=== PATIENT | female | born 1965 | race Caucasian/White ===

== ENCOUNTER 2020-02-14 08:35 | Outpatient (CLI) | payer MEDICARE, SELFPAY ==
--- NOTE | ~2020-02-14 | MR_ITS ---
EXAMINATION: MR lumbar spine wo con DATE: 02/14/2020 09:36 INDICATION: Dorsalgia, unspecified. TECHNIQUE: Magnetic resonance imaging (MRI) of the lumbar spine was performed without intravenous con trast. Sequences included sagittal T2-weighted FSE, sagittal STIR FSE, sagittal T1-weighted FSE, and axial T2-weighted FSE. COMPARISON: Lumbar spine MRI 01/16/2019 FINDINGS: Bone alignment is normal. Vertebral body heights are normal. There is a hemangioma in S1. I ntervertebral disc heights are normal. The distal spinal cord signal intensity is normal. The conus m edullaris is at L1-L2. The following disc levels are specifically discussed: L1-L2 through L3-L4: The disc does not extend beyond the endplate margin. There is no facet joint ost eoarthritis. There is no neural foraminal stenosis. There is no central canal stenosis. L4-L5: There is a left subarticular and left foraminal zone protrusion with annular fissure. There is no facet joint osteoarthritis. There is mild left neural foraminal stenosis. There is mild central c anal stenosis. L5-S1: There is a broad-based central protrusion with annular fissure. There is mild left facet joint osteoarthritis. There is mild bilateral neural foraminal stenosis. There is mild central canal steno sis. IMPRESSION: 1. Mild lumbar spondylosis, stable from 01/16/2019. Reviewed, dictated and finalized at location A.
== END 2020-02-14 08:36 | disposition home or self-care (01) ==
PROVIDERS: PCP Family Medicine; Visit Provider Family Medicine
DX: M47.816 Spondylosis without myelopathy or radiculopathy, lumbar region (principal)
CPT/HCPCS: 72148

== ENCOUNTER → 2022-06-21 14:16 | Outpatient (CLI) | payer MEDICARE, SELFPAY ==
--- NOTE | ~2022-06-21 | MM_ITS ---
EXAMINATION: MM screening [facility] BI w allie HISTORY: Screening mammogram TECHNIQUE: Craniocaudal and mediolateral oblique 3-D tomosynthesis images were obtained and synthetic 2-D images were generated. CAD analysis was submitted and interpreted. COMPARISON: 03/29/2014, 03/23/2013 BREAST PARENCHYMAL COMPOSITION: There are scattered areas of fibroglandular density. FINDINGS: No suspicious mass, calcification, or architectural distortion are identified in either debra ast to suggest malignancy. There has been no suspicious interval change. IMPRESSION: 1. No mammographic evidence of malignancy. 2. Recommend routine screening mammography in one year. BI-RADS Category 1: Negative Reviewed, dictated and finalized at location A. BUFFER
== END ==
PROVIDERS: PCP Family Medicine; Visit Provider Physician Assistant
DX: Z12.31 Encounter for screening mammogram for malignant neoplasm of breast (principal)
CPT/HCPCS: 77063; 77067

== ENCOUNTER → 2022-06-21 14:32 | Outpatient (CLI) | payer MEDICARE, SELFPAY ==
--- NOTE | ~2022-06-21 | DEXA_ITS ---
Bone Density Report Name: BRIONNA MORALES Age: 56 Sex: Female Ethnicity: White Date of : 1965 Indication: postmenopausal; screening for osteoporosis; parental hip fracture; Referring Provider: APRYL DAVIS Study: Bone densitometry was performed. Exam Date: June 21, 2022 Accession number: [id number] Bone Density: Region BMD T-score Z-score Classification AP Spine (L1-L4) 0.754 -2.7 -1.4 Osteoporosis Femoral Neck (Left) 0.607 -2.2 -1.0 Osteopenia Total Hip (Left) 0.691 -2.1 -1.2 Osteopenia Femoral Neck (Right) 0.584 -2.4 -1.2 Osteopenia Total Hip (Right) 0.617 -2.7 -1.8 Osteoporosis Total Hip Mean 0.654 -2.4 -1.5 Osteopenia World Health Organization criteria for BMD impression classify patients as: Normal (T-score at or above -1.0), Osteopenia (T-score between -1.0 and -2.5), or Osteoporosis (T-score at or below -2.5). 10-year Fracture Risk: FRAX not reported because: Some T-score for Spine Total or Hip Total or Femoral Neck at or below -2.5 Clinical Information Provided by Patient: Parent has had a hip fracture Patient maximum height was 61.1 Menopause Age: 37 No regular weight bearing exercise Drinks caffeinated beverages Onset of menses at age 10 Number of children 3 Impression: The patient has osteoporosis, based on the Total Spine T-score. The patient has risk factors, including: parental hip fracture. Discussion: INCREASED RISK OF FRACTURE. BONE DENSITY IS UNDESIRABLY LOW AT ONE OR MORE SKELETAL SITES, CONSISTENT WITH POSTMENOPAUSAL OSTEOPOROSIS. This patient's lowest T-score meets the World Health Organization's (WHO) criteria for osteoporosis at one or more sites (T-score -2.5 or below). In untreated patients, the risk of osteoporotic fracture increases approximately two-fold for each 1.0 SD decrease in T-score. Low bone density is not the only risk factor for fracture; also consider factors such as patient's age, frailty or poor health, risk of falling, risk of injury, previous osteoporotic fracture, family history of osteoporosis, cigarette smoking, low body weight, etc. Not everyone with low bone mineral density has osteoporosis; osteomalacia and other metabolic bone disorders should also be considered. Patients who have osteoporosis should be evaluated for specific diseases and conditions (secondary causes) that may cause or contribute to bone loss. The [place] Association of Clinical Endocrinologists (AACE) and National Osteoporosis Foundation (NOF) recommend pharmacologic intervention for all postmenopausal women whose T-score is in this range. The patient should follow a healthful lifestyle (good nutrition with adequate calcium and vitamin D, and appropriate weight-bearing exercise). Follow-Up: Consider a repeat BMD and Vertebral Fracture Assessment (VFA) exam in 2 years o
== END ==
PROVIDERS: PCP Family Medicine; Visit Provider Family Medicine
DX: Z78.0 Asymptomatic menopausal state (principal); M81.0 Age-related osteoporosis without current pathological fracture; M85.852 Other specified disorders of bone density and structure, left thigh; M85.851 Other specified disorders of bone density and structure, right thigh
CPT/HCPCS: 77080

== ENCOUNTER 2023-04-04 16:16 | Emergency (ER) | payer MEDICARE, SELFPAY ==
--- NOTE | ~2023-04-04 | XR_ITS ---
EXAMINATION: XR ribs LT 2V w CXR 2V DATE: 04/04/2023 16:58 INDICATION: Chest injury. Left rib pain. TECHNIQUE: Frontal and lateral views of the chest and 2 views on 4 radiographs of the left ribs were obtained. COMPARISON: None. FINDINGS: CHEST TWO VIEWS: There is no pneumonia, pleural effusion, or pneumothorax. The heart size is normal. LEFT RIBS: There is no rib fracture. IMPRESSION: 1. No rib fracture. Reviewed, dictated and finalized at location E. F MINISTER IMPRESSION: 1. No rib fracture.
[2023-04-04 16:33] VITALS: BP 139/84; PULSE 81; RESP 16; TEMP 37.2; O2SAT 100
--- NOTE | 2023-04-04 16:34 | ED.CHESTPAIN ---
HPI - Chest Pain General Chief Complaint: Chest Pain Stated Complaint: Fell on chest / pain intensifies Time Seen by Provider: 04/04/23 16:19 Source: patient and family Mode of arrival: ambulatory Limitations: no limitations History of Present Illness HPI narrative: Marnie is a 57-year-old female patient presenting to the clinic today with complaints of left-sided chest pain. She reports that she fell approximately 1 week ago into a the humidifier and complained of pain to her sternum. She has seen her PCP yesterday and he palpated her sternum and ribs and states that there was nothing broken. She reports that today her chest discomfort has intensified. States is worse with taking a deep breath. It is a very sharp pain in the left anterior chest, pain full to palpation over the left anterior ribs. Related Data Home Medications Medication Instructions Recorded Confirmed oxycodone-acetaminophen 7.5 mg-325 1 tablet PO DAILY 01/07/23 01/07/23 mg tablet Allergies Allergy/AdvReac Type Severity Reaction Status Date / Time No Known Allergies Allergy Unknown Verified 04/03/23 15:35 Review of Systems Review of Systems: Pertinent positives per HPI. Patient denies any fever, chills, rash, headache, visual changes, dizziness, cough, runny nose, sore throat, shortness of breath, chest pain, palpitations, nausea, vomiting, diarrhea, constipation, abdominal pain, or any urinary issues. 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 Obesity (BMI 30-39.9) Surgical History Surgical History H/O arthroscopy (~2018) H/O total knee replacement H/O tubal ligation (~1991) Family History Family History Mother Family history of arthritis Family history of migraine headaches Father Family history of Alzheimer's disease Social History Social History Smoking status: Former smoker (3 years) Smoking end date: 05/27/17 Alcohol intake: current Lack of Transportation: No Lack of Food: Never True Current Housing: I Have Housing Concerned About Future Housing: No Difficulty Paying Gas/Electric Bills: No Difficulty Paying for Meds: No Currently Unemployed: No Education: High School Diploma/GED Difficulty w/ Childcare or Family Care: No Comments At the time of my signature, I reviewed and agree with the nursing past medical, surgical, social, and family history. There is no relevant family history pertinent to the patient complaint. Exam Narrative: General: Well-developed, well nourished, in no apparent distress Head: Normocephalic, atraumatic. Chest: Even rise and fall of the chest wall with respirations, very tender to palpation over the left anterior rib just above the breast, no bruising or swelling noted Cardio: Regular rate and rhythm, s1 and s2 normal, no murmur appreciated. Resp: Clear to auscultation bilaterally, no rhonchi, rales, wheezing or rubs. Extremities: No deformity, no edema, no cyanosis, capillary refill less than 2 seconds, peripheral pulses palpable and strong. Integumentary: [place], warm, and dry, intact without lesion, no rashes. Course Course Emergency Course: Portions of this record may have been created with voice recognition software. Level of Care: Express Care Visit Vital Signs Vital signs: Vital signs reviewed MDM - Chest Pain MDM Narrative Medical decision making narrative: At the time of visit patient is resting on the exam table. Chest x-ray with unilateral ribs, EKG shows normal sinus rhythm with heart rate of 71 beats per minute without ectopy. I susp
--- NOTE | 2023-04-04 16:58 | ECG_ITS ---
Measurements Intervals [place] Rate: 71 P: 26 NC: 161 QRS: 9 QRSD: 104 T: 32 QT: 378 QTc: 413 Interpretive Statements SINUS RHYTHM NORMAL ECG NO PREVIOUS ECG AVAILABLE FOR COMPARISON Electronically Signed On 04-05-2023 6:17:16 RESIDENTIAL INSURANCE INSPECTOR by Natalio Herrera D.O.
== END 2023-04-04 17:24 | disposition home or self-care (01) ==
PROVIDERS: Emergency Provider Nurse Practitioner Family; PCP Family Medicine
DX: R07.89 Other chest pain (principal); Z87.891 Personal history of nicotine dependence; W19.XXXA Unspecified fall, initial encounter
CPT/HCPCS: 71046; 71100; 93005; 99213; G0463

== ENCOUNTER 2023-09-17 14:54 | Outpatient (CLI) | payer MEDICARE, SELFPAY ==
--- NOTE | ~2023-09-17 | MM_ITS ---
EXAMINATION: MM screening [facility] BI w allie HISTORY: Screening mammogram TECHNIQUE: Craniocaudal and mediolateral oblique 3-D tomosynthesis images were obtained and synthetic 2-D images were generated. CAD analysis was submitted and interpreted. COMPARISON: 06/21/2022 bilateral screening mammogram BREAST PARENCHYMAL COMPOSITION: The breasts are almost entirely fatty. FINDINGS: There are 2 biopsy markers on the right seminal history of 2 prior benign right breast biop sies. There is no evidence of suspicious mass, calcification, or architectural distortion to suggest malignancy in either breast. There has been no suspicious interval change. IMPRESSION: 1. No mammographic evidence of malignancy. 2. Recommend routine screening mammography in one year. BI-RADS Category 1: Negative Reviewed, dictated and finalized at location A.
== END 2023-09-17 14:55 ==
LOC: MICIMG 14:55
PROVIDERS: PCP Nurse Practitioner; Visit Provider Nurse Practitioner
DX: Z12.31 Encounter for screening mammogram for malignant neoplasm of breast (principal)
CPT/HCPCS: 77063; 77067

== ENCOUNTER → 2023-11-30 12:10 | Outpatient (CLI) | payer MEDICARE, SELFPAY ==
--- NOTE | ~2023-11-30 | XR_ITS ---
EXAMINATION: XR shoulder RT min 2V DATE: 11/30/2023 12:33 INDICATION: Right shoulder pain. TECHNIQUE: 4 views of right shoulder were obtained. COMPARISON: None. FINDINGS: Bone alignment is normal. No fracture. There is mild osteoarthritis of glenohumeral joint a nd acromioclavicular joint. IMPRESSION: 1. Mild polyarticular osteoarthritis. Reviewed, dictated and finalized at location A.
== END ==
LOC: EXPBETH 12:13
PROVIDERS: PCP Anesthesiology Pain Medicine; Visit Provider Anesthesiology Pain Medicine
DX: M19.011 Primary osteoarthritis, right shoulder (principal)
CPT/HCPCS: 73030

== ENCOUNTER → 2024-05-08 14:16 | Outpatient (CLI) | payer MEDICARE, SELFPAY ==
--- NOTE | ~2024-05-08 | XR_ITS ---
EXAMINATION: XR hand LT min 3V DATE: 05/08/2024 14:26 INDICATION: Left finger pain. Injury. TECHNIQUE: 3 views of left hand were obtained. COMPARISON: None. FINDINGS: There is a transverse fracture of diaphysis of fifth proximal phalanx. The distal fracture fragment demonstrates 31 degrees dorsal angulation and 6 degrees ulnar angulation. There is moderate osteoarthritis of first carpometacarpal joint and mild osteoarthritis of fifth distal interphalangeal joint. IMPRESSION: 1. Transverse fracture of diaphysis of fifth proximal phalanx. Reviewed, dictated and finalized at location A. LYTIC CASE OPERATOR
--- OUTSIDE RECORDS SUMMARY | 2024-05-11 17:29 | XMS_ITS | Encounter Summary ---
Author Organization [facility] Address [address] [place] [address]. [place] [id number] [place] [id number] Care Team Providers Care Package Drier Name Role Phone René Smallwood MD Primary Care Provider [phone]- [phone] Reason for Referral * Consultation/Treatment (Routine) - Closed Specialty Diagnoses / Procedures Referred By Contac t Referred To Contact PAIN MANAGEMENT / [facility] Pain Management Diagnoses Lumbar disc herniation Logan Morales MD Naseer, Kristina, MD [facility] [address] [address] Phone: tel: fax: Referral ID Status Reason Start Date Expiration Date V isits Requested Visits Authorized [id number] Closed Specialty Services 06/08/2019 07/09/2020 1 1 TMAN Reason for Visit * Reason Comments Follow Up * Consultation/Treatment (Routine) - Closed Specialty Diagnoses / Procedures Referred By Contac t Referred To Contact Diagnoses Radiculopathy, lumbar region René Smallwood MD Phone: tel: fax: Logan Morales MD Referral ID Status Reason Start Date Expiration Date Visits Re quested Visits Authorized [id number] Closed 02/25/2019 02/25/2020 12 12 Encounter Details Date Type Department Care Team (Late st Contact Info) Description 06/08/2019 9:40 AM DRIFTMAN Office Visit [facility] Medical Group Multispecialty Care - [facility] [address] [facility], [address] [place] [address] Logan Morales MD Follow Up Social History Tobacco Use Types Packs/Day Years Used Date Smoking Tobacco: Former Smokeless Tobacco: Never Comments No Sex and Gender Information Value Date Recorded Sex Assigned at Not on file Legal Sex Female 4:38 PM CDT Gender Identity Not on file Sexual Orientation Not on file documented as of this encounter Last Filed Vital Signs Vital Sign Reading Time Taken Comments Blood Pressure 130/80 06/08/2019 9:44 AM DRIFTMAN Pulse 82 06/08/2019 9:44 AM DRIFTMAN Temperature - - Respiratory Rate - - Oxygen Saturation - - Inhaled Oxygen Concentration - - Weight 93.7 kg (206 lb 9.6 oz) 06/08/2019 9:44 A M DRIFTMAN Height 154.9 cm (5' 1 ) 06/08/2019 9:44 AM DRIFTMAN Body Mass Index 39.04 06/08/2019 9:44 AM DRIFTMAN documented in this encounter Progress Notes * Vonda Salcido RN - 06/08/2019 9:[address] [facility] Primary Dr Smallwood Left L4-5 Transforaminal block on 05/18/19--Helped about 40%--continues to have some pain relief from injection--helped a lot in the left knee cap, continues to have a constant shooting pain in lateral knee that radiates to hip and to foot when she turns the knee. Continues to have right knee pain and right leg pain Saw Sarah Gibbs on 05/15/19---no new orders from ortho TMAN * Logan Morales MD - 06/08/2019 9:40 AM CST Images from the original note were not included. Neurosurgery Established Patient Follow-up Office Visit Note CHIEF COMPLAINT Chief Complaint Patient presents with ??? Follow Up ROS No past medical history on file. No Known Allergies Current medication(s) at the start of this visit: Medication Sig ??? diazepam 5 MG tablet Take 5 mg by mouth. ??? Levothyroxine Sodium 112 MCG Cap Take 112 mcg by mouth daily. ??? topiramate 50 MG Tab Take 50 mg by mouth 2 (two) times daily. Filed Vitals: 06/08/19 0944 BP: 130/80 Pulse: 82 Weight: 93.7 kg (206 lb 9.6 oz) Height: 5' 1 (1.549 m) LABS No results found for: HGBA1C No results for input(s): WBC, RBC, HGB, HCT, MCV, MCH, MCHC, PLT, RDW, MPV, PERNEU, PERLYM, PERMON,PEREOS, PERBASO, NEUC, LYMC, MONOC, EOSC, BASOC, DTYPE in the last 168 hours. No results for input(s): NA, K, CL, CO2, AGAP, BUN, CR, BUNCREATININ, GFRNON, GFR, GLU, CA, TP, ALB, TBIL, ALKP, AST, ALT in the last 168 hours. No results for input(s): PTT, INR in the last 168 hours. Invalid input(s): PT ENCOUNTER DIAGNOSES SNOMED CT(R) 1. Lumbar disc herniation PROLAPSED LUMBAR INTERVERTEBRAL DISC HPI / NEURO EXAM / IMAGING/DIAGNOSTICS / DISCUSSION/PLAN Attending: Dr. Morales Patient has left greater than right leg pain which seems to have begun coinciding with bilateral total knee replacement. Imaging is very unimpressive. Left L4-5 mild bulge. Tall disc space. Pain begins in her knees and radiates laterally into her legs. Orthopedics unfortunately has no further recomm endations. Left L4-5 transforaminal block provided 40% relief of left knee complaints. Recommended bilateral L4-5 transforaminal block. Follow-up in 8 weeks. LOGAN MORALES MD 06/08/2019 TMAN documented in this encounter Plan of Treatment Scheduled Referrals Name Type Priority Associated Diagnoses Orde r Schedule Ambulatory Referral to Pain Referral Routine Lumbar disc herniation Ordered: 06/08/2019 documented as of this encounter Visit Diagnoses Diagnosis Lumbar disc herniation- Primary Displacement of lumbar intervertebral disc without myelopathy documented in this encounter Care Teams Package Drier Relationship Specialty Start Date End Date René Smallwood MD PCP - General FAMILY PRACTICE 02/23/19 documented as of this encounter
--- OUTSIDE RECORDS SUMMARY | 2024-05-11 17:29 | XMS_ITS | Encounter Summary ---
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 Name Role Phone Unavailable Primary Care Provider Unavailabl e Reason for Referral * Radiology Services (Routine) - Closed Specialty Diagnoses / Procedures Referred By Contac t Referred To Contact Diagnoses Morbid obesity (HCC) Preop testing BMI 39.0-39.9,adult Osteoarthritis, unspecified osteoarthritis type, unspecified site Procedures [place] [id number] [place] [address] [facility] [address] [address] Phone: [phone] Referral ID Status Reason Start Date Expiration Date Visits Re quested Visits Authorized [id number] Closed 02/19/2023 02/19/2024 1 1 * Procedure (Routine) - Closed Specialty Diagnoses / Procedures Referred By Contac t Referred To Contact Gastroenterology Diagnoses Morbid obesity (HCC) Preop testing BMI 39.0-39.9,adult Osteoarthritis, unspecified osteoarthritis type, unspecified site [place] [address] [place] [address] Referral ID Status Reason Start Date Expiration Date Visits Re quested Visits Authorized [id number] Closed 02/19/2023 02/19/2024 1 1 Encounter Details Date Type Department Care Team (Latest Contact Info) Description 02/19/2023 11:00 AM CDT Office Visit [facility] [address], [address] [place] [address] [place] [address] [facility] [address] [place] [id number] Morbid obesity (HCC) (Primary Dx); Preop testing; BMI 39.0-39.9,adult; Osteoarthritis, unspecified osteoarthritis type, unspecified site Social History Tobacco Use Types Packs/Day Years Used Date Smoking Tobacco: Never Smokeless Tobacco: Never Tobacco Cessation:Counseling Given: Not Answered Sex and Gender Information Value Date Recorded Sex Assigned at Female 02/19/2023 10:44 AM CDT Gender Identity Female 02/19/2023 10:44 AM CDT Sexual Orientation Straight 02/19/2023 10 :44 AM CDT documented as of this encounter Last Filed Vital Signs Vital Sign Reading Time Taken Comments Blood Pressure 162/94 02/19/2023 10:56 AM CDT Pulse 71 02/19/2023 10:56 AM CDT Temperature 36.8 ??C (98.2 ??F) 02/19/2023 1 0:56 AM CDT Respiratory Rate 20 02/19/2023 10:5 6 AM CDT Oxygen Saturation 98% 02/19/2023 10: 56 AM CDT Inhaled Oxygen Concentration - - Weight 94.7 kg (208 lb 12.8 oz) 023 10:56 AM CDT Height 154.9 cm (5' 1 ) 02/19/2023 10:5 6 AM CDT Body Mass Index 39.45 02/19/2023 10:56 AM CDT documented in this encounter Progress Notes * Miki Hogue MD - 02/19/2023 11:00 AM CDT BARIATRIC EVALUATION HISTORY & PHYSICAL Height: 154.9 cm (5' 1 ) Weight: 94.7 kg (208 lb 12.8 oz) BMI (Calculated): 39.47 Chief Complaint: Morbid Obesity HPI: Pt is a 57 year old year old female with a hx of morbid obesity who presents for surgical tx. Pt has attempted multiple weight loss regimens in the past including medical, exercise and dietary without snf success. Pt has developed multiple comorbid conditions that include Multiple arthropathies and Osteoarthritis. These comorbid condition(s) have progressively worsened due to the patients morbid obesity and no other contributing factors. Pt has now attained a BMI (Calculated): 39.47 and has failed multiple non surgical weight loss regimens for >5yrs. BMI: Body mass index is 39.45 kg/m??. [place] body weight: 47.8 kg (105 lb 6.1 oz) Adjusted ideal body weight: 66.6 kg (146 lb 12 oz) Medical: no new medical changes Review of previous provider notes in [facility] Everywhere was performed on the day of service. Past Medical History: Diagnosis Date ??? Hypothyroidism ??? Osteoarthritis Past Surgical History: Procedure Laterality Date ??? Knee Replacement Bilateral ??? TUBAL LIGATION, LAPAROSCOPIC ??? Wrist Fracture Repair Left PATIENT MEDICAL HISTORY SCREENING: Morbid Obesity............................................. Yes Diabetes....................................................... No Hypertension................................................ No Hypercholesterolemia.................................. No Gastroesophageal reflux disease................ No Sleep apnea................................................. No COPD/Emphysema ..................................... No Asthma......................................................... No Dyspnea on exertion..................................... No Thyroid problems.......................................... Yes - hypothyroidism Renal Disease.............................................. No Chest pain.................................................... No Heart trouble................................................ No Stress incontinence...................................... No Multiple arthropathies................................... Yes - osteoarthritis in bilateral knees Blood clots................................................... No Depression................................................... No Anesthetic Complications............................. No Positive history of MRSA.............................. No Immune suppression medication.................. No Including, but not limited to prednisone, humira, methotrexate, plaquenil, imuran, alvarado, enbrel Significant Allergies...................................... No Other................................................. none FAMILY HISTORY SCREENING: Significant for obesity....................... Yes - mom's side Blood clots........................................ No Anesthetic Complications................. No Other................................................. none No current outpatient medications on file. No current facility-administered medications for this visit. Allergies Allergen Reactions ??? Naproxen Nausea and/or Vomiting Social History Smoking status: Never Smokeless tobacco: Never Alcohol use: Not on file Drug use: Never Sexual activity: Not on file Family History Problem Relation Name Age of Onset ??? Alzheimer's Disease Father All past medical, family, and social history was reviewed and updated today. Review of Systems: Constitutional: denies recent significant weight loss HEENT: Denies headaches, vision or auditory changes Cardiovascular: Denies chest pain, orthopnea or palpitations Respiratory: Denies cough, hemoptysis. Oxygen dependent : No Gastrointestinal: denies abdominal pain, no melena or hematemesis Genitourinary: denies hematuria, dysuria Musculoskeletal: denies muscle weakness, reports knee pains - s/p multiple knee replacements Endocrine: denies diabetes mellitus, reports thyroid issues Allergic / Immuno: Normal Neuro / Psych: denies depression, denies SI/SA Skin: denies open wounds, skin infections Functional Health Status prior to surgery : Independent- The patient does not require assistance from another person for any ADLs.. Physical Examination: BP 162/94 Pulse 71 Temp 98.2 ??F (36.8 ??C) Resp 20 Ht 1.549 m (5' 1 ) Wt 94.7 kg (208 lb12.8 oz) SpO2 98% Constitutional: well-developed, well-nourished, and in no distress. ENMT: pink, moist oral mucosa Head: Normocephalic and atraumatic. Eyes: EOM are normal. No scleral icterus. Neck: No tracheal deviation present. Pulmonary/Chest: Effort normal. No stridor. No respiratory distress. Abdominal: Soft, nontender, nondistended Musculoskeletal: Normal range of motion. Exhibits no tenderness. Neurological: Alert and oriented. Gross motor nerves intact. Skin: Skin is warm. No erythema. Psychiatric: Mood and affect normal. No results for input(s): SODIUM, POTASSIUM, CHLORIDE, CO2, BUN, CREATININE, GLUCOSE, CALCIUM in thelast 79143 hours. No results for input(s): WBC, HGB, HCT, PLTCOUNT in the last 20634 hours. Risk / Benefits: Risks and benefits were reviewed with patient including but not limited to , blood clots of the extremities or the lungs, enteral leaks, hemorrhage, damage to organs, infections, non guaranteed weight loss results among others. There are also risks of vitamin deficiencies that can generate vitamin deficiency symptoms. There are also risks of additional procedures or operations in the perioperative and snf periods. Questions were answered. Covid Discussion: Because the nature of the virus is not yet completely understood, the risks associated with COVID-19 infections have not been fully identified and there may be additional risks which are not known atthis time. In addition, the impact of COVID-19 infections on the known risks associated with the ulisses atment/procedure/surgery have not been identified and there may be additional or increased risks associated with the treatment/procedure/surgery that are not known at this time. Risks of surgery during COVID19 pandemic was discussed. Discussed that testing would be done prior to operation. Questions were answered. Bariatric Surgery Patient Education: The patient was informed of other factors that are necessary to achieve weight loss in addition to surgery. Specifically, the patient was informed of the different surgical procedures, including the duodenal switch, the jacinto y gastric bypass, the sleeve gastrectomy and the adjustable gastric band. It was explained that bariatric surgery is part of the overall weight loss program which includes a low calorie nutritional program with nutritional and vitamin supplementation, a frequent and consistent exercise program and a social support program or network. The patient will experience successfuland snf weight loss when these components along with bariatric surgery are followed. The patient has had the above discussions with multiple program team members including surgeon, hearing consultant, bariatric nurse and mental health legal collector and the patient will continue to have these discussions through the perioperative program. The [facility] B[facility] Surgical Risk/Benefit Calculator has been used and results have been reviewedwith the patient. Impression: Morbid obesity with above listed comorbidities. Multiple failed diet attempts. Plan: Based on discussion with the patient and consideration of the patients medical history and diagnosis of morbid obesity the patient is an appropriate candidate for bariatric surgery. Recommendation isfor: Laparoscopic Sleeve Gastrectomy and Laparoscopic Gastric Bypass Pre-op Plan: Liquid Protein Diet: Yes for 3 days Management Lecturer: Yes Additional Testing: Yes GI: hx of morbid obesity with increased risk of silent heartburn and hiatal hernia -EGD: Schwoerer -UGI: ordered CV: none Pulmonary: none Renal: None Endocrine: no diabetes, positive hypothyroidism - on levothyroxine -pcp clearance for surgery Heme: no family hx of DVT / PE, no personal hx of DVT/PE, routine VTE risk -Standard post operative anticoagulation Other: OA in bilateral knees, pt has had multiple knee replacements surgeries in past and has limited ability for significant exercise given her arthritis Psych/Social: -Pt has no history of drug use, alcohol use for greater than one year or treatment for alcohol or drug use for greater than one year -Pt has not smoked for at least 6 weeks Preoperative Labs: CBC, CMP, B1, B12 Preoperative weight loss: No - initial 208 lbs Weight check at Class: Yes Comments: Hospitalist Consult: Yes Other Consults: No Schedule: any Standard incision, 2S, no ray, 2 day stay Miki Hogue MD 02/19/2023 documented in this encounter Plan of Treatment Scheduled Orders Name Type Priority Associated Diagnoses Orde r Schedule EGD GI Routine Morbid obesity (HCC) Preop testing BMI 39.0-39.9,adult Osteoarthritis, unspecified osteoarthritis type, unspecified site 1 Occurrences starting 02/19/2023 until 02/19/2024 [facility] Imaging Routine Morbid obesity (HCC) Preop testing BMI 39.0-39.9,adult Osteoarthritis, unspecified osteoarthritis type, unspecified site 1 Occurrences starting 02/19/2023 until 02/20/2024 documented as of this encounter Visit Diagnoses Diagnosis Morbid obesity (HCC)- Primary Morbid obesity Preop testing Preoperative examination, unspecified BMI 39.0-39.9,adult Body Mass Index 39.0-39.9, adult Osteoarthritis, unspecified osteoarthritis type, unspecified site documented in this encounter
--- OUTSIDE RECORDS SUMMARY | 2024-05-11 17:29 | XMS_ITS | Encounter Summary ---
Author Organization [facility] System Address [address] [place] [address]. [place], [place] [address] [place] [id number] Care Team Providers Care Traffic Workforce Representative Name Role Phone René Smallwood MD Primary Care Provider [phone] Reason for Visit * Auth/Cert Specialty Diagnoses / Procedures Referred By Liz falcon Referred To Contact Diagnoses FAILED RIGHT TOTAL KNEE Procedures REVISION RIGHT TOTAL KNEE ARTHROPLASTY POLYETHYLENE EXCHANGE, SYNOVECTOMY, LYSIS OF ADHESIONS Bo Huerta MD [address] [place] [address] Phone: tel: fax: Referral ID Status Reason Start Date Expiration Date Visits Re quested Visits Authorized [id number] 1 1 Encounter Details Date Type Department Care Team (Late st Contact Info) Description 01/22/2022 9:45 AM CDT - 01/22/2022 12:15 PM CDT Surgery [facility] [address] [place] [address] Bo Huerta MD [address] [place], [place] [id number] REVISION RIGHT TOTAL KNEE ARTHROPLASTY POLYETHYLENE EXCHANGE Surgery Details Date/Time Status Location OR Service Patient Class Case Class Case Type Trauma Case? 01/22/2022 9:45 AM Posted [facility] 13 Orthopedics Short Stay/Outpa tient Surgery E - Elective No Panel 1 Procedure LRB Anes Op Region Wound Class Comments REVISION RIGHT TOTAL KNEE AR THROPLASTY POLYETHYLENE EXCHANGE Right Spinal Knee Clean Surgeon Surgeon Role Service Panel Bo Huerta MD Primary Orthopedics 1 Case Notes [facility] - OFFICE TO CONTACT REP CONTACTED BY ALETHA TAPIA documented in this encounter Social History Tobacco Use Types Packs/Day Years Used Date Smoking Tobacco: Former Smokeless Tobacco: Never Comments:quit 11/2017 Alcohol Use Standard Drinks/Week Comments Yes 1.7 (1 standard drink = 0.6 oz p ure alcohol) occasionally Education Answer Date Recorded What is the highest level of school you have completed or the highest degree you have received? 12th grade 08/27/2019 Comments No Sex and Gender Information Value Date Recorded Sex Assigned at Not on file Legal Sex Female 4:38 PM CDT Gender Identity Not on file Sexual Orientation Not on file COVID-19 Exposure Response Date Recorded In the last 10 days, have yo u been in contact with someone who was confirmed or suspected to have Coronavirus/COVID-19? No / Unsure 01/22/2022 6:31 AM CDT documented as of this encounter Last Filed Vital Signs Vital Sign Reading Time Taken Comments Blood Pressure 105/67 01/22/2022 12:00 PM CDT Pulse 66 01/22/2022 12:00 PM CDT Temperature 36.8 ??C (98.2 ??F) 01/22/2022 10:45 AM C DT Respiratory Rate 16 01/22/2022 12:00 PM CDT Oxygen Saturation 96% 01/22/2022 12:00 PM CDT Inhaled Oxygen Concentration - - Weight 74.4 kg (164 lb) 01/12/2022 4:18 PM CDT Height 154.9 cm (5' 1 ) 01/12/2022 4:18 PM CDT Body Mass Index 30.99 01/12/2022 4:18 PM CDT documented in this encounter Functional Status * Question Answer Date of Assessment Author Status Do you have serious difficulty walking or climbing stairs? Yes 01/22/2022 7:43 AM CDT Tico Oilvo RN Active * Question Answer Date of Assessment Author Status Do you have difficulty dressing or bathing? No 01/22/2022 7:43 AM CDT Sangeetha Olivo RN Active Because of a physical, mental, or emotional condition, do you have difficulty doing errands alone such as visiting a doctor's office or shopping? No 01/22/2022 7:43 AM Tico Patel RN Active * RETIRED Are you deaf or do you have serious difficulty hearing Answer Date of Assessment Author Status No 01/22/2022 7:43 AM CDT Activ e * RETIRED Are you blind or do you have serious difficulty seeing, even when wearing glasses? Answer Date of Assessment Author Status No 01/22/2022 7:43 AM CDT Activ e * Do you have serious difficulty walking or climbing stairs? Answer Date of Assessment Author Status Yes 01/22/2022 7:43 AM Wanda Patel RN Active * Do you have difficulty dressing or bathing? Answer Date of Assessment Author Status No 01/22/2022 7:43 AM Wanda Patel RN Active * Because of a physical, mental, or emotional condition, do you have difficulty doing errands alone such as visiting a doctor's office or shopping? Answer Date of Assessment Author Status No 01/22/2022 7:43 AM Wanda Patel RN Active documented as of this encounter Mental Status * Question Answer Entry Date Author Status Because of a physical, mental, or emotional condition, do you have serious difficulty concentrating, remembering, or making decisions? No 01/22/2022 7:43 AM Sangeetha Patel RN Active * Because of a physical, mental, or emotional condition, do you have serious difficulty concentrating, remembering, or making decisions? Answer Entry Date Author Status No 01/22/2022 7:43 AM Wanda Patel RN Active documented in this encounter Discharge Instructions * Discharge Instructions* Arabella Cardoza RN - 01/22/2022 12:16 PM CDT * Attachments The following attachments cannot be sent through Care Everywhere. * General Anesthesia Discharge Instructions (Scottish) * Nerve Blocks (Scottish) * Total Knee Replacement Discharge Instructions (Scottish) * How to Prevent Surgical Site Infections (Scottish) * How to Prevent Blood Clots (Scottish) * Aspirin, ADULT (Scottish) * Dexamethasone (Systemic), ADULT (Scottish) * Sulfamethoxazole and Trimethoprim, ADULT (Scottish) documented in this encounter Medications at Time of Discharge acetaminophen (TYLENOL) 325 MG tablet Take 2 tablets (650 mg total) by mouth every 6 (six) hours as needed for Pain or Fever. 01/22/2022 diazepam 5 MG tablet Take 5 mg by mouth. 12/16/2017 levothyroxine (SYNTHROID) 100 MCG tablet Take 100 mcg by mouth daily. 11/13/2021 topiramate 50 MG Tab Take 50 mg by mouth 2 (two) times daily. 3 04/01/2019 aspirin EC (ECOTRIN) 81 MG tablet Take 1 tablet (81 mg total) by mouth 2 (two) times a day for 30 days. 60 tablet 01/22/2022 02/21/2022 dexamethasone (DECADRON) 4 MG tablet Take 1 tablet (4 mg total) by mouth 2 (two) times daily with meals for 1 day. To start the morning after surgery. 2 tablet 01/22/2022 01/23/2022 oxyCODONE-acetami nophen (PERCOCET) 5-325 MG tablet Take 1 tablet by mouth every 8 (eight) hours as needed. 01/21/2022 02/20/2022 sulfamethoxazole- trimethoprim (BACTRIM DS) 800-160 MG tablet Take 1 tablet by mouth 2 (two) times daily for 10 days. 20 tablet 01/22/2022 02/01/2022 documented as of this encounter Progress Notes * Anny Oliver, PT - 01/22/2022 3:48 PM CDT PT Initial Evaluation Discharge Recommendation: home with assistance; outpatient P/T DME equipment recommendation: Patient owns a 2 wheeled walker Activity Recommendation for vocational director: Up with supervision and walker; WBAT RLE 01/22/22 5400 Therapy Visit Ordering Provider MD Yosef PT Evaluation Completed on 01/22/22 Subjective RN approved therapy session. Patient was sitting at EOB upon entering [facility], boyfriend present. Both agreeable to therapy evaluation. Patient reports she feels able to return home, but does admit to continued veronika-area numbness. Reason for admission Patient was admitted for revision fo R TKA polyethylene exchange secondary to flexion contracture on 01/22/22............PMH: R medial uni TKA with revision, OA, hypothyroidism, LTKA, R TKA, L wrist surgery...........Orders: Eval and Treat............Activity: RLE WBAT Verified Two Patient Identifiers Yes Patient consents to therapy Yes Acute Inpatient PT Time Calculation PT Start Time 1520 PT Stop Time 1548 PT Time Calculation (min) 28 min Precautions Weight Bearing Status RLE;As tolerated General Precautions Fall Risk Skin Integrity R knee incision with prineo dressing Other IV access; nerve block Home Living Home Living Comments Patient lives alone in a one story house with basement laundry, 2 steps to enter with handrail. Bathroom has a walk-in shower or tub/shower combo (no grab bar), standard toilet (no nearby support). Patient owns a w/c, crutches, 2 wh/walker, cane and standard walker. Prior to admit patient was functionally independent and did not use any assistive devices. She is not currentlyworking. No fall history. Her significant other can provide 24/7 assist over the next few days, andher daughter can also assist as needed. Outpatient P/T scheduled for Saturday..........Patient plans to return to her boyfriend's home initially upon discharge. He has a similar home set-up, except he has a vanity for nearby toilet support. Pain Pain Yes Pain Score 7 Location R knee pain Interventions Cryotherapy;Informed RN;Re-direction;Relaxation;Re-positioning Activity Tolerance Endurance Quality Good Limiting Factors to Endurance Acute deconditioning;Pain;Weakness Activity Tolerance Comments Patient limited by post-op pain, decreased strength/ROM of R knee Vision - Basic Assessment Current Vision Wears glasses Vision - Complex Assessment Additional Comments No acute visual changes Cognition Overall Cognitive Status WFL Arousal/Alertness Appropriate responses to stimuli Attention Span Appears intact Memory Appears intact Orientation Level Oriented X4 Following Commands Follows all commands and directions without difficulty Safety Judgment Good awareness of safety precautions Awareness of Errors Good awareness of errors made Deficits Fully aware of deficits Problem Solving Able to problem solve independently Motor Planning Appears intact Perseveration Not present Initiation Appears intact Sensation Light Touch No apparent deficits Additional Comments Mild veronika-area numbness, but intact light touch in LE's RLE Assessment RLE Comment Gross AROM: WFL's, mild deficits in R knee extension (approximately 5-10 degrees), demonstrates flexion to at least 90 degrees.........Gross MMT: demonstrates at least 3/5 with active movement of hip flexion, knee flexion, 3- /5 for knee extension, and 4/5 for ankle DF LLE Assessment LLE Comment Gross AROM: WFL's.........Gross MMT: 4-/5 (chronic weakness due to prior injury as well) Bed Mobility Supine to Sit SBA/supervision Sit to Supine SBA/supervision Other (Comment) Provided education on alternate techniques (owns leg proof load mechanic if needed) TRANSFERS Sit to Stand SBA/supervision (2 wh/walker) Other (Comment) Educated on technique, hand placement, positioning of R knee during transitions. Gait Gait Assistance SBA/supervision Assistive Device 2 Wheeled walker Distance Ambulated (ft) 125 ft Other (Comment) Pt. demonstrated reciprocal step pattern, antalgic gait RLE, noted to have internalrotation of BLE's (more notable LLE), decreased gait speed, but no buckling or loss of balance throughout session Stairs Stair Management Assistance SBA/supervision Stair Management Technique One rail R;One rail L;Step to pattern;Backward;Forward Number of Stairs 4 Other (Comment) Pt. descended steps backwards with R handrail (on L side during descent), step-to pattern, no loss of balance. Pt. ascended steps with L handrail and step-to pattern, no buckling of Rknee, cues for sequencing. Balance Sitting - Static Independent Sitting - Dynamic Independent Standing - Static Modified independence;Support of both upper extremities (2 wh/walker) Standing - Dynamic SBA;Support of both upper extremities (2 wh/walker) Other (Comment) No loss of balance throughout session, utilized walker appropriately Exercises Other (Comment) Pt. given basic written HEP for TKA ex's in sitting/supine with verbal and visual instruction, patient stated understanding but declined performing ex's. Patient/Family Training Other (Comment) Patient was educated on ice/elevation, knee positioning, home safety and mobility, use of 2 wh/walker and fall prevention, therapy plan and discharge recommendations. Assessment Personal Factors/Comorbidities Impacting Care 3-4 personal factors/comorbidities Examination of Body Systems Moderate (3 or more Elements) Objectives of Body Systems Impaired ambulation;Impaired stair negotiation;Decreased LE ROM;Decreased LE strength;Decreased endurance;Decreased high-level ADLs;Decreased sensation;Pain with mobility Clinical Presentation of Patient Evolving and changing characteristics Complexity Level of Evaluation Moderate Prognosis Good PT Assess/Eval Other (Comment) Patient is a pleasant 56 y/o female who presented for R TKA revisionwith polyethylene exchange on 01/22/22 secondary to flexion contracture. Patient demonstrates post-op deficits in strength and ROM of R knee and limited by pain. Patient compensates well, completing all mobility with supervision and a 2 wh/walker, including gait and stair climbing, with no loss of balance. Pt. is noted to have mild gait deviations due to antalgic presentation and internal rotationof B/L feet, decreased activity tolerance, and also reports mild decrease in veronika-area numbness post-procedure. Overall patient appears able to return home, exhibited good functional tasks during session, appropriate use of 2 wh/walker, and stated undestanding of all educaiton. Recommend return home with assist from significant other, and follow-up outpatient P/T. Recommendation PT Recommendation Home with assistance;Outpatient PT PT Equipment Recommended Currently has DME in Place Plan PT Frequency One time visit (Scheduled for D/C today) PT - Next Appointment 01/22/22 If this is the last treatment note,it will serve as the discharge summary Yes End of Session End of Session Safety Call light within reach;Nursing aware of session;Family/friend present with patient;Transfer status education End of Session Comment Returned to bed Education: Primary Learners Name: Marnie Isabeldiornaa Primary Language of learner: Scottish Patient S.O. was educated on precautions exercises transfers ADLs balance bed mobility equipment therapy plan gait safety stair training adaptive skills edema management ROM. Education was completed one to one verbal hands-on written this date. Preference of learning new concepts one to one verbal Barriers to education this date were none. Response to education this date verbalized understanding verbalized recall asks questions demos with verbal cues demos adequately. documented in this encounter Nursing Notes * Arabella Cardoza RN - 01/22/2022 4:30 PM CDT Pt ambulating with walker w/o difficulty or dizziness. Tolerating diet/fluids w/o nausea. Voided inbathroom but still has decreased sensation to groin/buttocks but able to feel pressure sensation togroin/buttocks and more sensation in michelle legs. Pt c/o pain to left knee but states tolerable to go home now. will be home with pt documented in this encounter OR Notes * Op Note - Bo Huerta MD - 01/22/2022 10:28 AM CDT Marnie Roque, 1965, CSN: @[email or web address]@ Bo HUERTA MD 01/22/2022 Surgeon: Bo HUERTA MD Anesthesia: Anesthesiologist: Mark Mistry MD CLOTH PRINTING INSPECTOR: Rachel Hernandez CRNA Implants: Implant Name Type Inv. Item Serial No. Room Designer Lot No. LRB No. Used Action ROTATING PLATFORM INSERT SIZE 5 - 10MM [employer] [id number] 1 Implanted Preoperative diagnosis: Flexion contracture right total knee Operation proposed: Revision of polyethylene right total knee Postoperative diagnosis: As preop Operation performed: As preop ophthalmic medical assistant: Nikolay Mccollum PA-C, Leon Allen Indications for procedure: This 56-year-old lady has a history of multiple surgeries on her knees. Her problems began with a medial unicompartmental arthroplasty that was converted to a total knee and then subsequently to a revision total knee. She has had chronic pain and issues with her knees. Onthe right side she has inability to fully extend the knee on the left she has instability. She has very poor bone quality and she has bilateral stemmed rotating platform implants. Due to her poor bone quality we are very hesitant to suggest component revision. Instead on the right we plan on downsizing the polyethylene and stripped the soft tissues of the back of the knee. Is understood that she will never be completely symptom free or pain-free with her knees. She is on chronic narcotic medication. It is likely she will also have chronic weakness to extension. Risks and alternatives to care have been discussed and the patient wishes to proceed with surgery today. Description of procedure: Under spinal anesthesia with the patient supine a sterile tourniquet was placed about the thigh and the knee was prepped and draped in usual fashion. A formal timeout was called and patient was identified as was the side and site of surgery. Intravenous antibiotics were given. A longitudinal skin incision was made in the midline following the old scar. We dissected down through the subcutaneous tissues and a medial parapatellar arthrotomy was made. Clear yellow fluid was retrieved and sent for and sensitivity. The suprapatellar pouch as well as the medial recess was widely open however there is some minor scarring in the lateral recess was broken down bluntly. She had a 20 degree or so flexion contracture but flexed quite well. We removed the old polyethylene. It was not appreciably worn. The soft tissues posteriorly. We thenstripped that in similar fashion we dissected along the posterior aspect of the proximal tibia. Trial options were done with an 10 mm polyethylene that was 2 mm thinner than the polyethylene we had taken out.. We did more posterior stripping and unable to get the flexion contracture down to 5 to 10degrees. The downsizing of the polyethylene did not affect the varus valgus stability of the knee. The trial was removed and the definitive polyethylene for a 5 femur and a 4 tibial baseplate was inserted. This is a 10 mm constrained rotating platform polyethylene. We irrigated and closed the capsule with the knee in flexion using #1 strata fix and interspersed #2 Maxbraid. The subcutaneous tissues were closed with 2-0 Vicryl and the skin was closed with a running subcutaneous stitch of 3-0 undyed strata fix. A Prineo dressing was applied and the patient was returned tothe recovery room in satisfactory condition. Blood loss was approximately 25 mL. Complications: None Fluid was sent for culture and sensitivity. documented in this encounter Plan of Treatment Not on file documented as of this encounter Procedures Procedure Name Priority Date/Time Associated Diagnosis Comments HC BODY FLUID CULTURE Nurse Collected Priority 01/22/2022 9:56 AM CDT CULTURE, ANAEROBIC Nurse Collected Priority 01/22/2022 9:56 AM CDT CELL COUNT W/ DIFF BODY FLUID Nurse Collected Priority 01/22/2022 9:56 AM CDT ARTHROPLASTY KNEE TOTAL REVISION 01/22/2022 9:02 AM CDT FAILED RIGHT TOTAL KNEE Case Notes [facility] - OFFICE TO CONTACT REP CONTACTED BY [facility] documented in this encounter Results * CULTURE, BODY FLUID W/ GRAM STAIN (01/22/2022 9:56 AM CDT) SPEC DESCRIPTION KNEE,RIGHT: [place] 01/22/2022 12:04 PM CDT [facility] SPECIAL REQUESTS SURGERY 01/22/2022 12:04 PM CDT [facility] GRAM STAIN RESULT NO NEUTROPHILS OR ORGANISMS SEEN 01/22/2022 3:58 PM CDT [facility] CULTURE RESULT NO GROWTH 5 DAYS 01/27/2022 10:41 AM CDT [facility] BODY FLUID STRUCTURE OF RIGHT KNEE REGION / Unknown 01/22/2022 9:56 AM CDT us D Alejo Huerta MD MICROBIOLOGY - GENERAL ORDERAB LES Final Result [facility] [address] [place] [address], [id number] * CULTURE, ANAEROBIC (01/22/2022 9:56 AM CDT) SPEC DESCRIPTION KNEE,RIGHT: FL 01/22/2022 12:03 PM CDT [facility] SPECIAL REQUESTS SURGERY 01/22/2022 12:03 PM CDT [facility] CULTURE RESULT NO ANAEROBES ISOLATED 01/27/2022 10:41 AM CDT [facility] BODY FLUID STRUCTURE OF RIGHT KNEE REGION / Unknown 01/22/2022 9:56 AM CDT us Bo Huerta MD MICROBIOLOGY - GENERAL ORDERAB LES Final Result Performing Organization Address [facility]/ZIP Co de Phone Number [facility] [address] [place] [address], [place] [phone] [id number] * CELL COUNT W/ DIFF BODY FLUID (01/22/2022 9:56 AM CDT) SOURCE (FLUID) KNEE,RIGHT 01/22/2022 1:20 PM CDT [facility] Comment:SYNOVIAL FLUID WBC (FLUID) 0.408 x10'3/uL 01/22/2022 1:20 PM CDT [facility] Comment:REFERENCE RANGE NOT ESTABLISHED RBC (FLUID) 0.031 x10'6/uL 01/22/2022 1:20 PM CDT [facility] Comment:REFERENCE RANGE NOT ESTABLISHED DIFFERENTIAL MANUAL DIFFERENTIAL PERFORMED ON CONCENTRATED CYTOSPIN 01/22/2022 10:20 AM CDT [facility] CELLS COUNTED 100 No COUNTED 01/22/2022 2:09 PM CDT [facility] SEGS (FLUID) 43 % 01/22/2022 2:09 PM CDT [facility] LYMPHS (FLUID) 28 % 01/22/2022 2:09 PM CDT [facility] OTHER MONONUCLEAR CELLS (FLD) 29 % 01/22/2022 2:09 PM CDT [facility] BODY FLUID STRUCTURE OF RIGHT KNEE REGION / Unknown 01/22/2022 9:56 AM CDT us Bo Huerta MD BODY FLUIDS AND STOOLS ORDERAB LES Final Result Performing Organization Address [facility]/ZIP Co de Phone Number [facility] [address] [place] [address], [place] [phone] documented in this encounter Visit Diagnoses Not on filedocumented in this encounter Administered Medications Inactive Administered Medications - up to 3 most recent administrations Medication Order MAR Action Action Date Dose Rate Site acetaminophen (TYLENOL) tablet 1,000 mg 1,000 mg, Oral, call center director, 1 dose, On Sat01/22/22 at 0745, Pre-Op Given 01/22/2022 8:06 AM CDT 1,000 mg BUpivacaine-EPINEPHrine (PF) 0.25% -[id number] injection As needed, Starting on Sat01/22/22 at 1038, Until Sat01/22/22 at 1042, Intra-Op Given 01/22/2022 10:38 AM CDT 20 mLs Incision Site ceFAZolin (ANCEF) 2 g in SW 20 mL IV syringe 2 g, Intravenous, at 240 mL/hr, Once, 1 dose, On Sat01/22/22 at 1600 Given 01/22/2022 3:51 PM CDT 2 g 240 mL/hr Right Arm chlorhexidine (PERIDEX) 0.12 % solution 15 mL 15 mL, Mouth/Throat, Once, 1 dose, On Sat01/22/22 at 0745, Patient to perform oral care first. Swish/gargle in mouth for 30 seconds, and then discard prior to going to surgery. If ventilated use saturated swab to clean oral cavity., Pre-Op Given 01/22/2022 8:06 AM CDT 15 mLs dexamethasone PF (DECADRON) injection 10 mg 10 mg, Intravenous, call center director, 1 dose, On Sat01/22/22 at 0745, Pre-Op Given 01/22/2022 8:06 AM CDT 10 mg lactated ringers infusion at 10 mL/hr, Intravenous, Continuous, Starting on Sat01/22/22 at 0745, Until Sat01/22/22 at 1857 New Bag 01/22/2022 10:20 AM CDT Continued by Anesthesia 01/22/2022 9:17 AM CDT 10 mL/hr New Bag 01/22/2022 8:06 AM CDT 10 mL/hr ondansetron (ZOFRAN) injection 4 mg 4 mg, Intravenous, Once as needed, Nausea, Vomiting, 1 dose, Starting on Sat01/22/22 at 1055, Until Sat01/22/22 at 1100, Administer slowly over 3-4 minutes. If more than one antiemetic is ordered, use in this order: ondansetron, diphenhydramine, metoclopramide, haloperidol, promethazine. If nausea / vomiting still not controlled, move to next ordered medication., PACU Given 01/22/2022 11:00 AM CDT 4 mg oxyCODONE immediate release (ROXICODONE) tablet 5 mg 5 mg, Oral, Once as needed, Other, Mild pain (Scale 1 - 3), 1 dose, Starting on Sat01/22/22 at 1136, Until Sat01/22/22 at 1145, Do not administer if patient is overly sedated, SpO2 LESS than 90%, or Respiratory Rate LESS than 12., PACU Given 01/22/2022 11:45 AM CDT 5 mg traMADol (ULTRAM) tablet 100 mg 100 mg, Oral, call center director, 1 dose, On Sat01/22/22 at 0745, Pre-Op Given 01/22/2022 8:06 AM CDT 100 mg documented in this encounter Active and Recently Administered Medications Times are shown in CDT. Scheduled Medication Order 01/20/2022 01/21/2022 01/22/2022 acetaminophen (TYLENOL) tablet 1,000 mg (COMPLETED) 1,000 mg, Oral, call center director, 1 dose, On Sat01/22/22 at 0745, Pre-Op 0806 (Given - Provid er: Natalie Olivo RN) ceFAZolin (ANCEF) 2 g in SW 20 mL IV syringe (COMPLETED) 2 g, Intravenous, at 240 mL/hr, call center director, 1 dose, On Sat01/22/22 at 0745, Pre-Op 0944 (Given - Provid er: Rachel Hernandez CRNA) ceFAZolin (ANCEF) 2 g in SW 20 mL IV syringe (COMPLETED) 2 g, Intravenous, at 240 mL/hr, Once, 1 dose, On Sat01/22/22 at 1600 1551 (Given - Provid er: Arabella Cardoza RN) chlorhexidine (PERIDEX) 0.12 % solution 15 mL (COMPLETED) 15 mL, Mouth/Throat, Once, 1 dose, On Sat01/22/22 at 0745, Patient to perform oral care first. Swish/gargle in mouth for 30 seconds, and then discard prior to going to surgery. If ventilated use saturated swab to clean oral cavity., Pre-Op 08 (Given - Provid er: Natalie Olivo RN) dexamethasone PF (DECADRON) injection 10 mg (COMPLETED) 10 mg, Intravenous, call center director, 1 dose, On Sat01/22/22 at 0745, Pre-Op 0806 (Given - Provid er: Natalie Olivo RN) traMADol (ULTRAM) tablet 100 mg (COMPLETED) 100 mg, Oral, call center director, 1 dose, On Sat01/22/22 at 0745, Pre-Op 0806 (Given - Provid er: Natalie Olivo RN) Continuous Medication Order 01/20/2022 01/21/2022 01/22/2022 lactated ringers infusion at 10 mL/hr, Intravenous, Continuous, Starting on Sat01/22/22 at 0745, Until Sat01/22/22 at 1857 0806 (New Bag - Prov ider: Natalie Olivo RN)0917 (Continued by Anesthesia - Provider: Rachel Hernandez CRNA)1019 (Paused - Provider: Rachel Hernandez CRNA - Comment: Switch to gravity)1020 (New Bag - Provider: Rachel Hernandez CRNA)1245 (Infusion Stop Time - Provider: Arabella Cardoza RN) PRN Medication Order 01/20/2022 01/21/2022 01/22/2022 acetaminophen (TYLENOL) tablet 325 mg 325 mg, Oral, Every 4 hours PRN, Mild pain (Scale 1 - 3), Starting on Sat01/22/22 at 1211, Until Sat01/22/22 at 1857, Maximum dose of acetaminophen is 4000 mg from all sources in 24 hours., Post-Op BUpivacaine-EPINEPHrine (PF) 0.25% -[id number] injection (CANCELED) As needed, Starting on Sat01/22/22 at 1038, Until Sat01/22/22 at 1042, Intra-Op 1038 (Given - Provid er: Bo Huerta MD) HYDROcodone-acetaminophen (NORCO) 5-325 MG tablet 1 tablet 1 tablet, Oral, Every 4 hours PRN, Moderate pain (Scale 4 - 7), Starting on Sat01/22/22 at 1211, Until Sat01/22/22 at 1857, Maximum dose of acetaminophen is 4000 mg from all sources in 24 hours., Post-Op HYDROmorphone (DILAUDID) injection 0.2 mg 0.2 mg, Intravenous, Every 2 hours PRN, Severe pain (Scale 8 - 10), Starting on Sat01/22/22 at 1211, Until Sat01/22/22 at 1857, Administer slowly over at least 2-3 minutes., Post-Op ondansetron (ZOFRAN) injection 4 mg 4 mg, Intravenous, Every 8 hours PRN, Nausea, Starting on Sat01/22/22 at 1211, Until Sat01/22/22 at 1857, IV push over 2-5 minutes., Post-Op ondansetron (ZOFRAN) injection 4 mg (COMPLETED) 4 mg, Intravenous, Once as needed, Nausea, Vomiting, 1 dose, Starting on Sat01/22/22 at 1055, Until Sat01/22/22 at 1100, Administer slowly over 3-4 minutes. If more than one antiemetic is ordered, use in this order: ondansetron, diphenhydramine, metoclopramide, haloperidol, promethazine. If nausea / vomiting still not controlled, move to next ordered medication., PACU 1100 (Given - Provid er: Sandra Martinez RN) oxyCODONE immediate release (ROXICODONE) tablet 5 mg (COMPLETED) 5 mg, Oral, Once as needed, Other, Mild pain (Scale 1 - 3), 1 dose, Starting on Sat01/22/22 at 1136, Until Sat01/22/22 at 1145, Do not administer if patient is overly sedated, SpO2 LESS than 90%, or Respiratory Rate LESS than 12., PACU 1145 (Given - Provid er: Sandra Martinez RN) documented in this encounter Care Teams Traffic Workforce Representative Relationship Specialty Start Date End Date René Smallwood MD PCP - General FAMILY PRACTICE 02/23/19 documented as of this encounter
--- OUTSIDE RECORDS SUMMARY | 2024-05-11 17:29 | XMS_ITS | Encounter Summary ---
Author Organization [facility] Address [address] [place] [address]. [place], [place] [id number] [place] [id number] Care Team Providers Care Hydrogeologist Name Role Phone René Smallwood MD Primary Care Provider [phone]- [phone] Reason for Visit * Reason Onset Date Comments Advice 06/24/2019 Encounter Details Date Type Department Care Team (Late st Contact Info) Description 06/24/2019 Telephone [facility] [place] [address] [phone] [place] [address] Advice Social History Tobacco Use Types Packs/Day Years Used Date Smoking Tobacco: Former Smokeless Tobacco: Never Comments No Sex and Gender Information Value Date Recorded Sex Assigned at Not on file Legal Sex Female 4:38 PM CDT Gender Identity Not on file Sexual Orientation Not on file documented as of this encounter Progress Notes * Becca Cartagena RN - 06/24/2019 4:28 PM CST Patient called regarding percentage of pain relief. Reported pain relief of 40%. However, patient reported prior to injection only being able to stand 15 minutes and after injection she is able to stand for a good couple of hours . Patient also wanted to discuss next steps after she gets her next injection and what will happen after she sees Dr. Morales. L ARCHITECT documented in this encounter Plan of Treatment Not on file documented as of this encounter Visit Diagnoses Not on filedocumented in this encounter Care Teams Hydrogeologist Relationship Specialty Start Date End Date René Smallwood MD PCP - General FAMILY PRACTICE 02/23/19 documented as of this encounter
--- OUTSIDE RECORDS SUMMARY | 2024-05-11 17:29 | XMS_ITS | Encounter Summary ---
Author Organization [facility] Address [address] [place] [address]. [place], [place] [id number] [place] [id number] Care Team Providers Care Tourist Camp Attendant Name Role Phone René Smallwood MD Primary Care Provider [phone]- [phone] Reason for Visit * Reason Comments Follow Up * Consultation/Treatment (Routine) - Closed Specialty Diagnoses / Procedures Referred By Liz falcon Referred To Contact Diagnoses Radiculopathy, lumbar region René Smallwood MD Phone: tel: fax: Logan Morales MD Referral ID Status Reason Start Date Expiration Date Visits Re quested Visits Authorized [id number] Closed 02/25/2019 02/25/2020 12 12 Encounter Details Date Type Department Care Team (Late st Contact Info) Description 08/03/2019 11:40 AM CDT Office Visit [facility] - [address], [address] [place] [id number] Logan Morales MD Follow Up Social History [...] Sign Reading Time Taken Comments Blood Pressure 118/76 08/03/2019 12:19 PM CDT Pulse 86 08/03/2019 12:19 PM CDT Temperature - - Respiratory Rate - - Oxygen Saturation - - Inhaled Oxygen Concentration - - Weight 93.4 kg (206 lb) 08/03/2019 12:19 PM CDT Height - - Body Mass Index 38.92 07/01/2019 1:02 PM PUBLIC SERVICE ADMINISTRATOR documented in this encounter Progress Notes * Vonda Salcido RN - 08/03/2019 11:40 AM CDT [facility] [place] L4-5 Transforaminal Block on 07/01/19--did not helped at all. Continues to have pain in mihcelle knees. She has an area on the left lateral knee if she touches it, itshoots pain down the leg to the foot and up to the hip. * Logan Morales MD - 08/03/2019 11:40 AM CDT Images from the original note were not [...] mouth 2 (two) times daily. Filed Vitals: 08/03/19 1219 BP: 118/76 Pulse: 86 Weight: 93.4 kg (206 lb) LABS No results found for: HGBA1C No [...] / IMAGING/DIAGNOSTICS / DISCUSSION/PLAN Attending: Dr. Morales Marnie Roque is a 54-year-old lady who has left greater than right leg pain which began immediately after bilateral total knee replacements. She has been evaluated by multiple orthopedic surgeons who feel that her knee replacements are appropriate. I find the timing to those procedures of interest. In terms of her spine left L4-5 mild bulge. Tall disc space. This does not explain her current bilateral distal symptoms that originate in her knees. Initially partially responded to left L4-5 transforaminal block. Most recent bilateral L4- 5 transforaminal blocks with no impact on symptoms. Frommy perspective there are no surgical issues. She is released from my care. I wished her luck. LOGAN MORALES MD 08/03/2019 documented in this encounter Plan of Treatment Not on file documented as of this encounter Visit Diagnoses Diagnosis Lumbar disc herniation- Primary Displacement of lumbar intervertebral disc without myelopathy documented in this encounter Care Teams Tourist Camp Attendant Relationship Specialty Start Date End Date René Smallwood MD PCP - General FAMILY PRACTICE 02/23/19 documented as of this encounter
--- OUTSIDE RECORDS SUMMARY | 2024-05-11 17:29 | XMS_ITS | Encounter Summary ---
Author Organization [facility] Address [address] [place] [address] Care Team Providers Care Asian Art Curator Name Role Phone Unavailable Primary Care Provider Unavailabl e Encounter Details Date Type Department Care Team (Latest Contact Info) Description 02/19/2023 10:15 AM CDT Clinical Support [facility] [address] [place] [id number] Morbid obesity (HCC) Social History Tobacco Use Types Packs/Day Years Used Date Smoking Tobacco: Never Smokeless Tobacco: Never Sex and Gender Information Value Date Recorded Sex Assigned at Female 02/19/2023 10:44 AM CDT Gender Identity Female 02/19/2023 10:44 AM CDT Sexual Orientation Straight 02/19/2023 10 :44 AM CDT documented as of this encounter Last Filed Vital Signs Vital Sign Reading Time Taken Comments Blood Pressure - - Pulse - - Temperature - - Respiratory Rate - - Oxygen Saturation - - Inhaled Oxygen Concentration - - Weight 94.3 kg (208 lb) 02/19/2023 11:30 AM CDT Height 154.9 cm (5' 1 ) 02/19/2023 11:30 AM CDT Body Mass Index 39.3 02/19/2023 11:30 AM CDT documented in this encounter Progress Notes * Wang Gamez, ORIANA/LD - 02/19/2023 9:59 AM CDT Weight Management Medical Nutrition Therapy Session 1 Date: 02/19/2023 Patient: Marnie Roque Date of : 1965 (57 year old) PCP Physician: No primary care provider on file. Referring Physician: Miki Hogue MD Assessment: Pt planning sleeve or RNYGB. Pt reports hx of diet and exercise with limited success. Pt states she would like to try something new. Water intake is lower, around 20-32oz daily. Caff is rare, cabronation is about 3-4 sodas daily, alcohol rare, and denies smoking. Activity is limited d/tknee issues. Diet recall was taken, although pt reports sporadic and variable diet that is rarely the same. Encouraged structure, and discussed the importance of protein. Promoted protein shakes for pt to begin sampling. B - water, diet soda L - leftovers, or out to eat D - self reported a lot of variance - fish, pasta, casserole Past Medical History: Diagnosis Date ??? Hypothyroidism ??? Osteoarthritis Pertinent Nutrition Medications: Reviewed Pertinent Nutrition Labs: Reviewed Clinical Data: Height: 154.9 cm (5' 1 ) Weight: 94.3 kg (208 lb) BMI (Calculated): 39.32 Diagnostic Statement: Obesity related to excess energy intake and decreased physical activity AEB elevated BMI. Interventions: Bariatric Nutrition Guide provided and reviewed, including: previous food records, proper eating habits/behavior modification tips, adequate hydration, no alcohol/carbonation, protein requirements, high protein foods, recommended protein supplements and portion control Materials Provided: Bariatric Nutrition Guide, Food and Activity Guide, Support Group Schedule, High Protein Liquid Supplement Handout, Fitness Center Membership Information and Vitamin Option Handout Behavior and Lifestyle Modifications Discussed: Eat 3 meals daily with 1-2 high protein snacks as needed Choose low fat/low sugar items Eat 75 gm protein per day Eliminate caloric beverages, carbonated beverages and limit caffeine Perform 30 minutes of cardiovascular exercise per day, most days of the week as able and approved by physician Do not graze between meals Incorporate fruits and vegetables Include whole grain foods Take 15-20 minutes to eat meals Reduce stress and emotional eating Portion control Recipe modifications/cooking methods Monitoring: Pt encouraged to call RD with questions and/or concerns. Pt verbalizes understanding of expectation of gradual weight loss or weight maintenance prior to surgery. Evaluation of Overall Compliance Potential: Good Pt has reviewed pre-operative weight management contract, and verbalizes understanding of program expectations: Yes Nutritional Review ?? Cleared, no additional RD visits required ___ ?? Not cleared, additional RD visit(s) required ___ ?? Continue with Medically Managed Diet visits _x__ ?? Bariatric Case Conference review required ___ Session Information Session date: 02/19/2023 Session total minutes: [address]/PRASAD documented in this encounter Plan of Treatment Not on file documented as of this encounter Visit Diagnoses Diagnosis Morbid obesity (HCC)- Primary Morbid obesity documented in this encounter
--- OUTSIDE RECORDS SUMMARY | 2024-05-11 17:29 | XMS_ITS | Encounter Summary ---
Author Organization [facility] Address [address] [facility] [place] [address] Care Team Providers Care Glove Turner Name Role Phone Unavailable Primary Care Provider Unavailabl e Reason for Visit * Reason Onset Date Comments Question 01/23/2023 Encounter Details Date Type Department Care Team (Late st Contact Info) Description 01/23/2023 Telephone [facility] [employer] [facility] [id number] [place] [id number] [place] [id number] [phone] Question Social History Tobacco Use Types Packs/Day Years Used Date Smoking Tobacco: Never Assessed Sex and Gender Information Value Date Recorded Sex Assigned at Female 02/19/2023 10:44 AM CDT Gender Identity Female 02/19/2023 10:44 AM CDT Sexual Orientation Straight 02/19/2023 10 :44 AM CDT documented as of this encounter Miscellaneous Notes * Telephone Encounter - Ivone Tejeda RN - 01/23/2023 3:[address] Smallwood called to confirm that Marnie had bilateral osteoarthritis of her knees which caused her to have both knees replaced. He clarified that he cannot say she currently has arthritis since shehas artificial joints. She does have arthritis of her spine per Dr. Smallwood. documented in this encounter Plan of Treatment Not on file documented as of this encounter Visit Diagnoses Not on filedocumented in this encounter
--- OUTSIDE RECORDS SUMMARY | 2024-05-11 17:29 | XMS_ITS | Encounter Summary ---
Author Organization [facility] Address [address] [place] [address]. 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 Procedures [place] RE-EVAL Anaid Smallwood MD Phone: tel: fax: Soco Gonzales APNP [address] [address] Phone: tel: fax: Referral ID Status Reason Start Date Expiration Date Visits Re quested Visits Authorized [id number] Closed 08/11/2019 08/10/2020 12 12 Encounter Details Date Type Department Care Team (Latest Contact Info) Description 08/27/2019 1:03 PM CDT - 08/27/2019 11:59 PM CDT Hospital Encounter [facility] [place] [address] [id number] Soco Gonzales APNP [address] [place] [id number] Discharge Disposition: Home or Self Care (Routine Discharge) Social History Tobacco Use Types Packs/Day Years Used Date Smoking Tobacco: Former Smokeless Tobacco: Never Alcohol Use Standard Drinks/Week Comments Yes 1.7 [...] Exposure Response Date Recorded In the last month, have you been in contact with someone who was confirmed or suspected to have Coronavirus / COVID-19? No / Unsure 08/27/2019 1:00 PM CDT documented as of this encounter Last Filed Vital Signs Vital Sign Reading Time Taken Comments Blood Pressure 130/86 08/27/2019 1:31 PM CDT Pulse 86 08/27/2019 1:23 PM CDT Temperature 36.7 ??C (98.1 ??F) 08/27/2019 1:23 PM CD T Respiratory Rate 20 08/27/2019 1:23 PM CDT Oxygen Saturation 98% 08/27/2019 1:23 PM CDT Inhaled Oxygen Concentration - - Weight 93 kg (205 lb) 08/27/2019 1:23 PM CDT Height 154.9 cm (5' 1 ) 08/27/2019 1:23 PM CDT Body Mass Index 38.73 08/27/2019 1:23 PM CDT documented in this encounter Medications at Time of Discharge diazepam 5 MG tablet Take 5 mg by mouth. 12/16/2017 topiramate 50 MG Tab Take 50 mg by mouth 2 (two) times daily. 3 04/01/2019 Levothyroxine Sodium 112 MCG Cap Take 112 mcg by mouth daily. 12/30/2017 01/22/2022 documented as of this encounter H&P Notes * RA Ospina - 08/27/2019 2:18 PM CDT Admission Note Referring Provider: Anaid Smallwood MD CC: Intermittent low back pain that radiates down the lateral legs upward toward the left hip, and over the anterior knees, with an electrical shocklike pain down the lateral left winchester at times. Bilateral anterior knee pain. HPI: Marnie Roque is a 4-year-old female patient seen today for follow-up for low back and bilateral knee pain. She has been experiencing bilateral knee pain for the past 5 years, and uses a crutch to assist with ambulation. She also experiences intermittent low back pain that radiates down the lateral legs upward toward the left hip, and over the anterior knees, with an electrical shocklike pain down the lateral left winchester at times. She was last seen in this office on 07/01/2019 as referred by Logan Morales MD. She underwent a bilateral L4-5 lumbar transforaminal epidural steroid injection at that time she did not provide relief. She was also seen treated on 05/18/[address] Chaudhry as re ferred by Logan Morales MD with recommendations for a left L4-5,, L5-S1 lumbar transforaminal epidural steroid injection, which she said provided approximately 50% improvement. She mentions that she has been released from Logan Morales MD care. She said she continues to experience some occasional low back pain that occurs when she bends forward and with certain activities. She does state the predominant pain complaint is the pain to the anterior knees. She rates her pain today as 7 on a 0-to-10 scale and describes the pain as throbbing, sharp, aching. Associated symptoms includes an electric shocklike sensation when she applies pressure to the lower aspect of the lateral left knee, which radiates down the lateral left winchester. She denies urinary or bowel incontinence and denies anesthesia to the saddle region. She said the pain is worsened with cooking, taking stairs, bending,, walking, standing. She says she has difficulty sleeping at night because of the pain. She has tried physical and occupational therapy, which did not provide relief. She is also tried cold and heat therapy.She said has undergone 7 knee surgeries, with revisions. The most recent surgery was completed at [facility] by David Ba MD on 06/19/2018. Prior to Admission medications Medication Sig Start Date End Date Taking? Authorizing Provider diazepam 5 MG tablet Take 5 mg by mouth. 12/16/17 Yes Doc Abstract Levothyroxine Sodium 112 MCG Cap Take 112 mcg by mouth daily. 12/30/17 Yes Doc Abstract topiramate 50 MG Tab Take 50 mg by mouth 2 (two) times daily. 04/01/19 Yes Doc Abstract No Known Allergies Past Medical History: Diagnosis Date ??? Arthritis ??? Disease of thyroid gland hypothyroidism Past Surgical History: Procedure Laterality Date ??? JOINT REPLACEMENT Left total right knee replacement ??? JOINT REPLACEMENT Right total left knee replacement ??? OTHER PROCEDURE left wrist surgery ??? TUBAL LIGATION Social History Socioeconomic History ??? Marital status: Single Spouse name: Not on file ??? Number of children: 3 ??? Years of education: Not on file ??? Highest education level: 12th grade Occupational History ??? Not on file Social Needs ??? Financial resource strain: Not on file ??? Food insecurity: Worry: Not on file Inability: Not on file ??? Transportation needs: Medical: Not on file Non-medical: Not on file Tobacco Use ??? Smoking status: Former Smoker ??? Smokeless tobacco: Never Used Substance and Sexual Activity ??? Alcohol use: Yes Alcohol/week: 1.7 standard drinks Types: 1 Glasses of wine per week Comment: occasionally ??? Drug use: Not on file ??? Sexual activity: Not on file Lifestyle ??? Physical activity: Days per week: Not on file Minutes per session: Not on file ??? Stress: Not on file Relationships ??? Social connections: Talks on phone: Not on file Gets together: Not on file Attends holiness service: Not on file Active member of club or organization: Not on file Attends meetings of clubs or organizations: Not on file Relationship status: Not on file ??? Intimate partner violence: Fear of current or ex partner: Not on file Emotionally abused: Not on file Physically abused: Not on file Forced sexual activity: Not on file Other Topics Concern ??? Service Not Asked ??? Blood Transfusions Not Asked ??? Caffeine Concern Not Asked ??? Occupational Exposure Not Asked ??? Hobby Hazards Not Asked ??? Sleep Concern Not Asked ??? Stress Concern Not Asked ??? Weight Concern Not Asked ??? Special Diet Not Asked ??? Back Care Not Asked ??? Exercise Not Asked ??? Bike Helmet Not Asked ??? Seat Belt Not Asked ??? Self-Exams Not Asked ??? Wheelchair Not Asked ??? Walker Yes Comment: Uses crutch to assist with ambulation ??? Upper extremity braces/slings Not Asked ??? Lower extermity braces/slings Not Asked ??? Self Care Not Asked Social History Narrative Lives with fiance. Review of Systems Constitutional: Negative. HENT: Negative. Eyes: Negative. Respiratory: Negative. Cardiovascular: Negative. Gastrointestinal: Negative. Denies incontinence of bowels Endocrine: Negative. Genitourinary: Negative. Denies urinary incontinence Musculoskeletal: Positive for back pain. Bilateral knee pain, pain down the lateral aspect of her legs, left side greater than right Allergic/Immunologic: Negative. Neurological: Negative. Hematological: Negative. Psychiatric/Behavioral: Negative. Diagnostic work-up: The patient had a left and right knee x-ray on 05/15/2019. The radiologist report was reviewed and is copied below Findings: Bilateral total knee arthroplasties are noted with longstem femoral and tibial componentsbilaterally. No periprosthetic lucencies in either knee. No acute fracture or dislocation on eitherside. No destructive osseous lesions. Hardware appears intact. No significant joint effusion on either side. No unexpected radiopaque foreign bodies. =====IMPRESSION:===== 1. Bilateral total knee arthroplasties with no acute hardware or osseous abnormalities Interpreted By: Jerrell Strickland MD, 05/17/2019 8:29 AM The patient had an MRI of the lumbar spine at [facility] on 01/16/2019. This report was reviewed and is as follows: Findings: Bone alignment is normal. Vertebral body heights and intervertebral disc heights are normal. There is a hemangioma in S1. The distal spinal cord signal intensity is normal. The conus nodularis is at L1-L2. L1-L2: The disc does not extend beyond the endplate margin. There is mild bilateral facet joint osteoarthritis. There is no neural foraminal stenosis. There is no central canal stenosis. L2-L3: The disc does not extend beyond the endplate margin. There is moderate right and mild left facet joint ost eoarthritis. There is no neural Foraminal stenosis. There is no central canal stenosis. L3-L4: The disc does not extend beyond the endplate margin. There is mild bilateral facet joint osteoarthritis. There is no neural foraminal stenosis. There is no central canal stenosis. L4-5: There is left subarticular zone protrusion that abuts the left L5 nerve root and left lateralrecess. There is mild bilateral facet joint osteoarthritis. There is mild left neuroforaminal stenosis. There is mild central canal stenosis. L5-S1: There is a broad-based central protrusion. There is mild left facet joint osteoarthritis. There is mild bilateral neuroforaminal stenosis. There is mild central canal stenosis. Impression: 1. Mild lumbar spondylosis with interval worsening at L4-L5. PHYSICAL EXAM Filed Vitals: 08/27/19 1323 08/27/19 1331 BP: (!) 140/92 130/86 Pulse: 86 Resp: 20 Temp: 98.1 ??F (36.7 ??C) SpO2: 98% Weight: 93 kg (205 lb) Height: 5' 1 (1.549 m) General: alert, appears stated age and cooperative. Body mass index is 38.73 kg/m??. Skin: normal and no rash or abnormalities HEENT: neck supple with midline trachea Lungs: no respiratory distress Heart: regular rate and rhythm Abdomen: soft Neuro: Patient rises from a seated position with difficulty. She uses a crutch to assist with ambulation, gait is slow and unsteady. Heel and toe walk was deferred at this time. The patient is unableto squat due to the knee pain. Assessment of her knees was limited due to the knee pain. No scarring, redness, warmth, lesions noted to the lumbar region. Range of motion of her back is limited with all motion. She experiences pain palpation of the lumbar paraspinous region. She denies pain to palpation of the knees. Postsurgical scars are present to the anterior knees bilaterally, which are wellapproximated with no sign of infection. Motor strength testing of the lower extremities is 5/5 withhip flexion, knee extension, knee flexion. No clonus noted. Patellar reflexes are 1/4 bilaterally. Capillary refill lower extremities is less than 3 seconds bilaterally. ASSESSMENT 1. Lumbar radiculopathy 2 . Chronic knee pain bilaterally. 3. Osteoarthritis bilateral knees PLAN 30 minutes [id number] time spent with the patient today. Results of her lumbar MRI were reviewed with her during the office visit. She has been experiencing bilateral knee pain for the past 5 years, and uses a crutch to assist with ambulation. She also experiences intermittent low back pain that radiates down the lateral legs for toward the left hip, and over the anterior knees, with an electrical shocklike pain down the lateral left winchester at times. We discussed bilateral genicular nerve blocks as an option with consideration for genicular nerve radiofrequency ablation. The procedure was described in detail as were the risks, benefits and alternative of treatments. Risks including, but notlimited to infection, permanent neurological deficit due to nerve injury, bleeding, post procedure pain, infection, anaphylaxis were reviewed with her and she verbalized understanding. Would also consider bilateral L4-5, L5-S1 lumbar transforaminal epidural steroid injections as an option as well. The patient will be scheduled at a later date for the genicular nerve block versus bilateral L4-5, 5S1 lumbar transforaminal epidural steroid injection. RA OSPINA CC: Anaid Smallwood MD Cosigned by Francie Christiansen MD at 08/31/2019 10:22 AM CDT Associated attestation - Francie Christiansen MD - 08/31/2019 10:22 AM CDT I, FRANCIE CHRISTIANSEN MD, performed a History and Physical examination of the patient and discussed the management with the Advanced Practice Provider (NARCISO). I reviewed the NARCISO's note and agree with the findings and plan of care, except as I have documented. documented in this encounter Plan of Treatment Not on file documented as of this encounter Visit Diagnoses Not on filedocumented in this encounter Care Teams Director Biology Relationship Specialty Start Date End Date Anaid Smallwood MD PCP - General FAMILY PRACTICE 02/23/19 documented as of this encounter
--- OUTSIDE RECORDS SUMMARY | 2024-05-11 17:29 | XMS_ITS | Clinical Summary ---
Author Organization [facility] Address [address] [place] [address]. [place], [place] [id number] [place] [address] Care Team Providers Care Documentation Designer Name Role Phone René Smallwood MD Primary Care Provider +1- [phone] Allergies No known active allergies Medications diazepam 5 MG tablet Take 5 mg by mouth. 12/16/2017 Active topiramate 50 MG Tab Take 50 mg by mouth 2 (two) times daily. 3 04/01/2019 Active levothyroxine (SYNTHROID) 100 MCG tablet Take 100 mcg by mouth daily. 11/13/2021 Active acetaminophen (TYLENOL) 325 MG tablet Take 2 tablets (650 mg total) by mouth every 6 (six) hours as needed for Pain or Fever. 01/22/2022 Active Active Problems Problem Noted Date Diagnosed Date Lumbar radiculopathy 09/02/2019 Overview (09/02/2019): Added automatically from request for surgery [id number] Lumbar disc herniation 06/08/2019 Family History Medical History Relation Comments Alzheimers Father No Known Problems Mother Relation Status Comments Father Mother Alive Social History Tobacco Use Types Packs/Day Years [...] on file Sexual Orientation Not on file Last Filed Vital Signs Vital Sign Reading Time Taken Comments Blood Pressure 129/66 01/22/2022 4:00 PM CDT Pulse 67 01/22/2022 4:00 PM CDT Temperature 36.8 ??C (98.2 ??F) 01/22/2022 4:00 PM CD T Respiratory Rate 18 01/22/2022 4:00 PM CDT Oxygen Saturation 97% 01/22/2022 4:00 PM CDT Inhaled Oxygen Concentration - - Weight 74.4 kg (164 lb) 01/12/2022 4:18 PM CDT Height 154.9 cm (5' 1 ) 01/12/2022 4:18 PM CDT Body Mass Index 30.99 01/12/2022 4:18 PM CDT Plan of Treatment Health Maintenance Due Date Last Done Comments Cervical Cancer Screening Pa p Smear (Age 30 to 64) Every 3 Years 1964 Colorectal Cancer Screening Colonoscopy (10 Years) 1964 Annual Physical 1967 Hepatitis C 1982 Cervical Cancer Screening Pa p with HPV Testing (Age 30 to 64) Every 5 Years 1994 Cervical Cancer Screening with HPV 1994 Mammogram Screening 2004 Zoster Vaccines (1 of 2) 2014 COVID-19 Vaccine (2023-2 5 season) 2024 Influenza Adult (#1) 2024 DTaP, Tdap and Td Vaccines ( 2 - Td or Tdap) 05/01/2026 05/01/2016 Meningococcal Vaccine Aged Out No tila melanie eligible based on patient's age to complete this topic Pneumococcal Vaccine: Pediat rics (0 to 5 Years) and At-Risk Patients (6 to 64 Years) Aged Out No longer eligi ble based on patient's age to complete this topic RSV Immunizations Under 20 Months Aged Out No longer eligible based on patient's age to complete this topic Medical Devices Implanted Type Area Cloth Feeder Device Identifier Shelf Expiration Date Model / Serial / Lot Rotating Platform Insert Size 5 - 10mm Implanted:Qty: 1 on 01/22/2022 by Bo Navas MD at [facility] Right: Knee SYNTHES 04/25/2025 [id number] / / [id number] Insurance [employer] Care Teams Documentation Designer Relationship Specialty Start Date End Date René Smallwood MD PCP - General FAMILY PRACTICE 02/23/19
--- OUTSIDE RECORDS SUMMARY | 2024-05-11 17:29 | XMS_ITS | Encounter Summary ---
Author Organization [facility] Address [address] [place] [address] Care Team Providers Care Ledge Man Name Role Phone Unavailable Primary Care Provider Unavailabl e Encounter Details Date Type Department Care Team (Late st Contact Info) Description 02/19/2023 9:00 AM CDT Office Visit [facility] [address] [place] [address], [address] [address] Morbid obesity (HCC) (Primary Dx) Social History Tobacco Use Types Packs/Day Years Used Date Smoking Tobacco: Never Smokeless Tobacco: Never Sex and Gender Information Value Date Recorded Sex Assigned at Female 02/19/2023 10:44 AM CDT Gender Identity Female 02/19/2023 10:44 AM CDT Sexual Orientation Straight 02/19/2023 10 :44 AM CDT documented as of this encounter Progress Notes * Aixa London, [facility] - 02/18/2023 9:45 AM CDT Name: Marnie Zepedanaa Date of : 63 Surgeon: Miki Hogue Date: 02/19/23 Reason for visit: Pre-Surgery Psychological Evaluation Surgical decision and reason for surgery: The pt is seeking weight loss surgery but is unsure whichone would be best for her. The pt has made the decision to have weight loss surgery because due to a lot of knee issues, she is limited in mobility which has led to weight gain and resistance to losing weight. She noted having 9 surgeries on her knees and still needs more. She noted she has attempte d multiple diets without any long time success. The pt reported comorbid conditions of osteoarthritis of the knees and hypothyroidism. Current Weight: 208 lbs BMI: 39.30 Goal Weight: No particular weight Beyond weight related conditions, patients health hx is otherwise unremarkable. No previous hx of non-compliance with medical care. Family/Home/Support Environment: The pt is supported in her decision to have weight loss surgery by her sister. She noted her partner does not want her to have the surgery but she stated he wants the best for her and would not sabotage her success. The pt has three kids ages 40, 33, and 31. The pt lives alone but her partner livesdown the street. The pt knows several people who have had weight loss surgery. No marital, family, parenting, grand-parenting or home environment issues or concerns identified Job Functioning: The pt is not working and is on disability. 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 Patient has no hx of work-adjustment difficulties on any of her jobs. Mental Health Issues: Patient reported some depressive Sx and took medication for a couple of years. She is not currentlytaking any medication and noted any depressive Sx she may have are due to her limitations from her legs/knees. Patient denied auditory or visual hallucinations; and denied losing blocks of time whereshe can not remember who or where she is. Patient has never been hospitalized for psychiatric reasons, and there is no history of prior suicide/homicide ideation or attempt. The patient was informed that the surgery can produce mild symptoms of anxiety and depression. The patient was asked to utilize support resources if necessary or if symptoms persist or increase in severity. Substance Use Issues: Current alcohol use: very limited use, but would choose a beer Current medical/recreational drugs use: none Current tobacco use: none The pt has no problems related to alcohol, drug or prescription mis-use. The patient was informed of addiction transference and that the absorption rate of alcohol will be much higher after surgery. The patient is aware that alcohol is not to be consumed for at least one year after surgery and thatcarbonated beverages are to be eliminated entirely. Weight and Uyqejz-Pcln-Fkmacwq History: Family Hx of Obesity: none Patient Obese since: About ten years ago after all of her knee surgeries (prior to this she was around 145-150 lbs High school weight: Less than 110 lbs Heaviest Weight Since 20: current weight Lowest weight in the past 2-3 years: 166 lbs Previous Weight Loss Efforts: weight watchers, low carb, phentermine, OTC supplements Most Weight Ever lost: 35 lbs Exercise and other sources of physical activity: very limited currently due to knee pain The patient feels that the biggest contributor to her weight issue is limited mobility due to her knees which is also her biggest barrier. When asked how the surgery is going to be different from any previous attempts at weight loss, the pt stated that it will be different because it helps to create more of a lifestyle for her and givesher consequences if not following the lifestyle. Pt noted she loves to cook and bake. The pt noted she doesn't over eat and is able to stop when full. She does like diet quinton roxana but has stopped in the past. She is not hyper focused on food and does not appear to have any food addictions. She is not a snacker. The pt noted she often eats breakfast. She has one to two cups of coffee per day which is her only caffeine she has. Lunch is her first meal of the day and could be a salad or leftovers She is not big on fast food. Dinner is made at home most of the time and could be chicken marsala, casserole, spaghetti and meat balls, steak or fish. She noted she always has a vegetable. Pt drinks water and diet quinton roxana throughout the day. Pt eats out a couple of times per week. Patterns of Distorted Eating: Emotional Eating: denies Mental Status Patient appearance: appropriate Orientation: Time, Place, Person, Situation Behavior: Within normal limits Speech: appropriate Affect: appropriate Mood: euthymic Memory: in tact Mental Awareness: clear Intelligence: average Attitude: cooperative Attention: focused Reasoning: good Judgement: good Impulse Control: good Insight: good Self-perception: realistic Thought Process: Logical Thought Content: Within Normal Limits DSM-5: E66.01 Obesity Summery/Recommendations Time did not allow for completion and pt has yet to decide which surgery she will have, if at all. Psychological Clearance is therefore Postponed. Aixa London, [facility], [facility] Licensed Professional Counselor Board Certified Bariatric Counselor Psychological Review ?? Cleared__ ?? Not cleared, additional visit(s) required __X_ can be video visit ?? Bariatric Case Conference review required ___ ?? Follow up scheduled ____ documented in this encounter Plan of Treatment Not on file documented as of this encounter Visit Diagnoses Diagnosis Morbid obesity (HCC)- Primary Morbid obesity documented in this encounter
--- OUTSIDE RECORDS SUMMARY | 2024-05-11 17:29 | XMS_ITS | Patient Health Summary ---
Author Organization [facility] [employer] Address [address] [place] [address] Care Team Providers Care Carrier Driver Name Role Phone Unavailable Primary Care Provider Unavailabl e Note from [facility],non-owned Affiliates and Associated Physician Practices is amultiple site organization consisting of ambulatory clinics and hospital sitesin [place], [place], [place] and [place]. This disclosure is being madepursuant to the Care Everywhere program and may not contain all information available regarding this patient. Last updated 18.[facility] [employer] Allergies * Naproxen(Nausea and/or Vomiting) -Low Criticality Social History Tobacco Use Types Packs/Day Years Used Date Smoking Tobacco: Never Smokeless Tobacco: Never Tobacco Cessation:Counseling Given: Not Answered Sex and Gender Information Value Date Recorded Sex Assigned at Female 02/19/2023 10:44 AM CDT Gender Identity Female 02/19/2023 10:44 AM CDT Sexual Orientation Straight 02/19/2023 10 :44 AM CDT Last Filed Vital Signs Vital Sign Reading Time Taken Comments Blood Pressure 162/94 02/19/2023 10:56 AM CDT Pulse 71 02/19/2023 10:56 AM CDT Temperature 36.8 ??C (98.2 ??F) 02/19/2023 10:56 AM C DT Respiratory Rate 20 02/19/2023 10:56 AM CDT Oxygen Saturation 98% 02/19/2023 10:56 AM CDT Inhaled Oxygen Concentration - - Weight 94.3 kg (208 lb) 02/19/2023 11:30 AM CDT Height 154.9 cm (5' 1 ) 02/19/2023 11:30 AM CDT Body Mass Index 39.3 02/19/2023 11:30 AM CDT
--- OUTSIDE RECORDS SUMMARY | 2024-05-11 17:29 | XMS_ITS | Encounter Summary ---
Author Organization [facility] Address [address] [place] [address]. [place], [place] [address] [place] [address] Care Team Providers Care Roll Filler Name Role Phone René Smallwood MD Primary Care Provider +1- [phone] Encounter Details Date Type Department Care Team (Latest Contact Info) Description 01/22/2022 Travel Social History Tobacco Use Types Packs/Day Years [...] AM CDT documented as of this encounter Functional Status * Question Answer Date of Assessment Author Status Do you have serious difficulty walking or climbing stairs? Yes 01/22/2022 7:43 AM CDT Tico Olivo RN Active * Question Answer Date of [...] Patel RN Active documented in this encounter Plan of Treatment Not on file documented as of this encounter Visit Diagnoses Not on filedocumented in this encounter Care Teams Roll Filler Relationship Specialty Start Date End Date René Smallwood MD PCP - General FAMILY PRACTICE 02/23/19 documented as of this encounter
--- OUTSIDE RECORDS SUMMARY | 2024-05-11 17:29 | XMS_ITS | Encounter Summary ---
Author Organization [facility] Address [address] [place] [address]. [place], [place] [address] [place] [address] Care Team Providers Care Senior Quality Control Technician Name Role Phone René Smallwood MD Primary Care Provider +1- [phone] Encounter Details Date Type Department Care Team (Late st Contact Info) Description 2019 Telephone [facility] Interventional [place] [address] [id number] Mona Mei RN Social History Tobacco Use Types Packs/Day Years Used Date Smoking Tobacco: Former Smokeless Tobacco: Never Comments No Sex and Gender Information Value Date Recorded Sex Assigned at Not on file Legal Sex Female 4:38 PM CDT Gender Identity Not on file Sexual Orientation Not on file documented as of this encounter Progress Notes * Mona Mei RN - 2019 11:38 AM CST PT CALLED RN DEVAUGHN TO GET NAME OF THE TWO INJECTIONS SHE RECEIVED IN ORDER TO FILL OUT HER DISABILITY FORMS. I CALLED HER BACK WITH THE INFO. E DRUM LATHE OPERATOR documented in this encounter Plan of Treatment Not on file documented as of this encounter Visit Diagnoses Not on filedocumented in this encounter Care Teams Senior Quality Control Technician Relationship Specialty Start Date End Date Reén Smallwood MD PCP - General FAMILY PRACTICE 02/23/19 documented as of this encounter
--- OUTSIDE RECORDS SUMMARY | 2024-05-11 17:29 | XMS_ITS | Clinical Summary ---
Author Organization [facility] [employer] Address [address] [place] [address] Care Team Providers Care Solar Sales Rep Name Role Phone Unavailable Primary Care Provider Unavailabl e Source Comments [facility],non-owned Affiliates and Associated Physician Practices is amultiple site organization consisting of ambulatory clinics and hospital sitesin [place], [place], [place] and [place]. This disclosure is being madepursuant to the Care Everywhere program and may not contain all informatio navailable regarding this patient. Last updated 18.[facility] [employer] Allergies Active Allergy Reactions Criticality Noted Date Comments Naproxen Nausea and/or Vomiting Low 11/03/2012 Family History Medical History Relation Name Comments Alzheimer's Disease Father Relation Name Status Comments Father Mother Alive Social History [...] Mass Index 39.3 02/19/2023 11:30 AM CDT Plan of Treatment Health Maintenance Due Date Last Done Comments COLOGUARD (AGES 45-75) - COL ON CA SCREENING 1964 COLON MONITORING 1964 COLONOSCOPY - COLON CA SCREENING 1964 CT COLONOGRAPHY - COLON CA SCREENING 1964 Colorectal Cancer Screening 1964 FIT - COLON CA SCREENING 1964 FLEX SIG - COLON CA SCREENING 1964 LIPID TESTING 1964 MAMMOGRAM 1964 PAP SMEAR 1964 HIV SCREENING 1979 HEPATITIS C SCREENING 07/10/1982 DTAP/TDAP/TD VACCINES (1 - Tdap) 1983 HEPATITIS B VACCINE (1 of 3 - 19+ 3-dose series) 1983 ZOSTER VACCINE (1 of 2) 2014 SCREENING FOR DIABETES 02/19/2023 DEPRESSION SCREENING 05/27/2023 MEDICARE AWV ? CALENDAR YEAR 2023 COVID-19 VACCINE (1 - 2023-2 5 season) 2024 INFLUENZA VACCINE (#1) 2024 HIB VACCINE Aged Out No longer eligi ble based on patient's age to complete this topic HPV VACCINE Aged Out No longer eligi ble based on patient's age to complete this topic MENINGOCOCCAL VACCINE Aged Out No tila melanie eligible based on patient's age to complete this topic PNEUMOCOCCAL VACCINE Aged Out No long er eligible based on patient's age to complete this topic
--- OUTSIDE RECORDS SUMMARY | 2024-05-11 17:29 | XMS_ITS | Encounter Summary ---
Author Organization [facility] Address [address] [place] [address]. [place], [place] [address] [place] [address] Care Team Providers Care Special Agent Secret Service Name Role Phone René Smallwood MD Primary Care Provider +1- [phone] Reason for Visit * Reason Comments Lab (SCAN) ECG (SCAN) Encounter Details Date Type Department Care Team ([facility] st Contact Info) Description 01/03/2022 Scan [facility] Information [facility] [address] [place] [address] Scanned, Documents Lab (SCAN); ECG (SCAN) Social History Tobacco Use Types Packs/Day Years [...] suspected to have Coronavirus/COVID-19? No / Unsure 01/12/2022 4:26 PM CDT documented as of this encounter Plan of Treatment Not on file documented as of this encounter Procedures Procedure Name Priority Date/Time Associated Diagnosis Comments ECG GENERIC (SCAN ORDER) Routine 01/03/2022 12:00 AM CDT OUTSIDE LAB (SCAN ORDER) Routine 01/03/2022 12:00 AM CDT OUTSIDE LAB (SCAN ORDER) Routine 01/03/2022 12:00 AM CDT documented in this encounter Results * OUTSIDE LAB (SCAN) (01/03/2022 12:00 AM CDT) 01/03/2022 us Documents Scanned SCANNING Final Result Performing Organization Address [facility] Co de Phone Number [facility] * OUTSIDE LAB (SCAN) (01/03/2022 12:00 AM CDT) 01/03/2022 us Documents Scanned SCANNING Final Result Performing Organization Address [facility] Co de Phone Number [facility] * ECG (01/03/2022 12:00 AM CDT) 01/03/2022 us Documents Scanned SCANNING Final Result Performing Organization Address [facility] de Phone Number [facility] documented in this encounter Visit Diagnoses Not on filedocumented in this encounter Care Teams Special Agent Secret Service Relationship Specialty Start Date End Date René Smallwood MD PCP - General FAMILY PRACTICE 02/23/19 documented as of this encounter
--- OUTSIDE RECORDS SUMMARY | 2024-05-11 17:29 | XMS_ITS | Encounter Summary ---
Author Organization [facility] Address [address] [place] [address]. [place], [place] [address] [place] [address] Care Team Providers Care Section Cutter Name Role Phone René Smallwood MD Primary Care Provider +1- [phone] Reason for Visit * Auth/Cert Specialty Diagnoses / Procedures Referred By Liz t Referred To Contact Diagnoses Lumbar radiculopathy lumbar radiculopathy Procedures INJECTION EPIDURAL TRANSFORAMINAL L4-5, L5-S1 Referral ID Status Reason Start Date Expiration Date Visits Re quested Visits Authorized [id number] 1 1 Encounter Details Date Type Department Care Team (Late st Contact Info) Description 09/08/2019 2:40 PM CDT - 09/08/2019 3:00 PM CDT Surgery [facility] Interventional [place] [address] [id number] Francie Christiansen MD [facility] [address] [place] [address] INJECTION EPIDURAL TRANSFORAMINAL L4-5 and L5-S1 Surgery Details Date/Time Status Location OR Service Patient Class Case Class Case Type Trauma Case? 09/08/2019 2:40 PM Posted [facility] Rm Pain Medicine Short Stay/Outpa tient Surgery No Panel 1 Procedure LRB Anes Op Region Wound Class Comments INJECTION EPIDURAL TRANSFORAMINAL L4-5 and L5-S1 Bilateral Local Spine Lumbar Clean RTN PT NO BLOOD THINNERS BILATERAL INJECTION EPIDURAL TRANSFORAMINAL L4-5, L5-S1 09/02/2019 YASMINE GORDON Surgeon Surgeon Role Service Panel Francie Christiansen MD Primary Pain Medicine 1 documented in this encounter Social History Tobacco [...] have Coronavirus / COVID-19? No / Unsure 09/08/2019 1:57 PM CDT documented as of this encounter Last Filed Vital Signs Vital Sign Reading Time Taken Comments Blood Pressure 122/73 09/08/2019 2:57 PM CDT Pulse 79 09/08/2019 2:57 PM CDT Temperature 37.2 ??C (98.9 ??F) 09/08/2019 2:21 PM CD T Respiratory Rate 20 09/08/2019 2:57 PM CDT Oxygen Saturation 96% 09/08/2019 2:57 PM CDT Inhaled Oxygen Concentration - - Weight 96.2 kg (212 lb) 09/08/2019 2:30 PM CDT Height 154.9 cm (5' 1 ) 09/08/2019 2:21 PM CDT Body Mass Index 40.06 09/08/2019 2:21 PM CDT documented in this encounter Discharge Instructions * Discharge Instructions* Mona Mei, RN - 09/08/2019 3:09 PM CDT PLEASE CALL WITH YOUR PERCENTAGE OF RELIEF IN 2 WEEKS. Please call [phone] Ext. [phone] option 4. You may need to leave a message. Please leave the following information... 1. Name, date of , a number we can reach you for questions and the date you were here. 2. The amount of relief you received from your injection in percentage and how long it has lasted or if it is still currently helping you. 3. If you still have pain where is the pain? 4. Are you taking any medications for your pain? 5. Are you doing your physical therapy exercises/stretches or any physical activity? 6. Is there any activity that you are able to do that you were unable to do prior to your injection? Please know that if we do not receive this information your next injection may not get authorized by your insurance company and your treatment could be delayed. FOR YOUR NEXT INJECTION APPOINTMENT. Please do not eat or drink anything for 4 hours prior to your appointment. Please have responsible adult with you and someone to drive you home Please shower prior to procedure to help prevent infection. Please no perfumes or scented lotions on day of your procedure. You May wear deodorant. You may take all your medications as prescribed with sips of water. [facility] Interventional Pain Management Discharge Instructions You have received a prescription for Valium to help with anxiety for your next procedure. Please get this filled at your pharmacy for the day of your procedure.. Please take as directed. YOU MUST HAVE A RESPONSIBLE ADULT WITH YOU FOR THIS APPOINTMENT OR YOU MAY BE CANCELED. Please note that this is a one time prescription for your upcoming procedure. This prescription will not be replaced if lost or stolen. Please note that if you cancel or no show for your procedure there will not be another prescriptionissued for the rescheduled date. Please bring a family member with you if you take medical transportation. WHAT TO DO TODAY: - Limit your activity today, but bedrest is not required - You may resume your normal activity tomorrow as tolerated - Do not drive a vehicle or operate hazardous equipment for the first 24 hours after your procedure. - You may experience numbness, tingling, and weakness in your extremities for several hours after your injection. Please be careful when walking or standing so you do not fall. - You may remove your bandage in the morning and you may shower. WHAT TO EXPECT OVER THE NEXT FEW DAYS TO A WEEK: - Any weakness or tingling typically wears off after several hours but you may have some tingling for several days after some injections - It is normal that once the numbing medicine wears off that you could be sore for several days before you notice relief. Pain should get better day by day. - The steroid will start working after 2-3 days and can take up to 2 weeks for it to fully work. - Everyone has different response to the injection depending on the amount of inflammation and diagnosis. HOW TO CONTROL YOUR PAIN: - Injection site soreness is normal and will subside in a few days. We suggest ice packs to the injection site for 10-20 at a time ever 2-3 hours. After 24 hours you may use heat if preferred or you may alternate heat and ice. - Your pain may be worse for a couple of days; you may use any medications that you were using before your visit. You may also use Tylenol, Motrin or Aleve if not contraindicated by your Primary CarePhysician. If you no longer have any prescribed medicine, please get your refill from the physicianwho fist prescribed it for you. - For patients who had a Radiofrequency Ablation your pain could last for up to 2 weeks. - We are an Interventional pain management. We do not prescribe pain medicine. COMMON SIDE EFFECTS OF STEROIDS: - You may experience warm, flushing sensation with redness in your face, neck and chest. - You may feel anxious, jittery, irritable or have trouble sleeping. - You may have increased hunger or menstrual changes (for women). - If you are a diabetic you may have increased blood sugars. If you do and are unable to control please call your doctor who manages your diabetes. - All side effects are temporary and should subside in approximately a week. WHEN TO CALL THE DOCTOR AND HOW TO REACH US: Call [phone] ext. [phone] for scheduling, insurance questions or speak with a nurse. Our hours are Saturday- 8:00am-4:00pm ??? Call the number above for any bleeding/drainage/redness/swelling at the injection site, severe pain, persistent chills, fever over 101 or greater, or new or different pain or numbness. If you areunable to reach us call 911 or go to the nearest emergency room. ??? If you have shortness of breath, fast heart rate, throat/tongue swelling call 911 or go to the nearest emergency room. ANY NEW BOWEL OR BLADDER INCONTINENCE ISSUES OR NUMBNESS TO PELVIC REGION PLEASE GO TO THE EMERGENCY ROOM IMMEDIATELY! documented in this encounter Medications at Time of Discharge diazepam 5 MG tablet Take 5 mg by mouth. 12/16/2017 topiramate 50 MG Tab Take 50 mg by mouth 2 (two) times daily. 3 04/01/2019 diazePAM 10 MG tablet Take 1 tablet (10 mg total) by mouth once for 1 dose. Take on arrival to pre-registration on day of the next procedure. This medication may cause drowsiness, DO NOT drive a motor vehicle or operate machinery. 1 tablet 09/08/2019 0 Levothyroxine Sodium 112 MCG Cap Take 112 mcg by mouth daily. 12/30/2017 2 documented as of this encounter H&P Notes * Francie Christiansen MD - 09/08/2019 2:05 PM CDT HISTORY AND PHYSICAL INTERVAL NOTE: I have reviewed Marnie Juan Chalodiana History & Physical which was performed within the past 30 days. After examining Marnie Yessica Roque, no change has occurred in the patient's condition since the H&P was completed. Informed Consent Discussion: Risks, benefits, alternatives as well as the consequences of not performing the surgery/procedure were discussed with the patient and/or family/personal manufacturer representative. Questions were answered and the patient/family/personal manufacturer representative verbalized understanding and desires to proceed. Previous Adverse Experience with Sedation, Analgesia, or Anesthesia? Yes (please explain) Risk benefits and alternate treatments were discussed. Signed: FRANCIE CHRISTIANSEN MD 2:05 PM Source Note - RA Ospina - 08/27/2019 2:18 PM CDT Admission Note Referring Provider: René Smallwood MD CC: Intermittent low back pain that radiates down the lateral legs upward toward the left hip, and over the anterior knees, with an electrical shocklike pain down the lateral left [place] at times. Bilateral anterior knee pain. HPI: Marnie Nichole Duanenaa is a 4-year-old female patient seen today [...] The most recent surgery was completed at [facility] by David Ba MD on 06/19/2018. Prior [...] file Gets together: Not on file Attends yazidi service: Not on file Active member of [...] an MRI of the lumbar spine at [facility] on 01/16/2019. This report was reviewed [...] 3. Osteoarthritis bilateral knees PLAN 30 minutes [id number] time spent with the patient today. Results [...] transforaminal epidural steroid injection. RA OSPINA CC: René Smallwood MD Cosigned by Francie Christiansen MD at 08/31/2019 10:22 AM CDT documented in this encounter OR Notes * Op Note - Francie Christiansen MD - 09/08/2019 3:01 PM CDT PROCEDURE: LUMBAR TRANSFORAMINAL EPIDURAL STEROID INJECTION UNDER FLUOROSCOPY LEVELS: Bilateral L4-5 and L5-S1 PREOPERATIVE DIAGNOSIS: LUMBAR RADICULOPATHY POSTOPERATIVE DIAGNOSIS: SAME PREOP SURGEON: FRANCIE CHRISTIANSEN MD RISKS, BENEFITS, ALTERNATE TREATMENTS DISCUSSED. WRITTEN CONSENT OBTAINED. PATIENT TAKEN TO PROCEDURE ROOM PLACED IN PRONE POSITION. PILLOW UNDER ABDOMEN TO REDUCE LUMBAR LORDOSIS. STERILE PREP AND DRAPE OF LUMBOSACRAL SPINE PERFORMED. ASA STANDARD MONITORS APPLIED. Risks including, but not limited to infection, permanent neurological deficit due to nerve root injury, bleeding, anaphylaxis, flushing, cerebral spinal fluid leak, paralysis, spinal cord injury, thinning of the skin, thinning of the bones, muscle cramping. PROCEDURE: VERTEBRAL BODIES WERE SQUARED.. SKIN AND SUBCUTANEOUS TISSUES ANESTHETIZED WITH 1% LIDOCAINE. 22 GAUGE CHIBA NEEDLES WITH BENT TIPS WERE USED. C ARM WAS MOVED TO THE OBLIQUE X RAY VIEW. TARGET FOR L 4 5 AND L5-S1 NERVE ROOT IS THE 6 O???CLOCK POSITION OF THE PEDICLE SHADOW IN THE OBLIQUE X RAY VIEW AT THE LEVEL OF L 4 5 AND L5-S1 ON THE Left and Right SIDE. APPROPRIATE NEEDLE TIP POSITION WAS CONFIRMED IN THE AP,OBLIQUE AND LATERAL VIEWS. AFTER NEGATIVE ASPIRATION, 5 CC OF CONTRAST SPLIT BETWEEN THE ABOVE MENTIONED LEVELS WAS INJECTED IN THE LATERAL VIEW CONFIRMING SPREAD IN THE ANTERIOR EPIDURAL SPACE. NEGATIVE ASPIRATION PRIOR TO 5 CC OF CONTRAST INJECTED IN THE AP VIEW CONFIRMING SPREAD ALONG THE APPROPRIATE NERVE ROOTS ALONG WITH EDIDURAL SPREAD. NO INTRAVASCULAR OR INTRATHECAL UPTAKE NOTED. NEGATIVE ASPIRATION PRIOR TO INJECTION OF 4OMG DEPOMEDROL AND 2 CC OF 0.25% BUPIVACAINE INJECTED PER LEVEL. NEEDLES REMOVED. NO COMPLICATIONS. POST PROCEDURE: PATIENT TOLERATED PROCEDURE WELL AND OBSERVED PRIOR TO DISCHARGE. DISCHARGED IN STABLE CONDITION WITH APPROPRIATE POST-PROCEDURE INSTRUCTIONS. PATIENT WILL BE CALLED OVER THE NEXT FEW DAYS FOR FOLLOWUP. documented in this encounter Plan of Treatment Not on file documented as of this encounter Procedures Procedure Name Priority Date/Time Associated Diagnosis Comments INJECTION EPIDURAL TRANSFORAMINAL 09/08/2019 2:46 PM CDT Lumbar radiculopathy XR PAIN CLINIC C-ARM Today 09/08/2019 2:23 PM CDT documented in this encounter Results * XR PAIN CLINIC C-ARM (09/08/2019 2:23 PM CDT) Narrative Radiology, Technologist - 09/08/2019 2:23 PM CDT This report does not contain a radiologist's interpretation. Please review associated procedure and/or operative report. us Francie Christiansen MD GENERAL IMAGING Final Result documented in this encounter Visit Diagnoses Diagnosis Lumbar radiculopathy- Primary Thoracic or lumbosacral neuritis or radiculitis, unspecified Lumbar radiculopathy Thoracic or lumbosacral neuritis or radiculitis, unspecified documented in this encounter Admitting Diagnoses Diagnosis Lumbar radiculopathy Thoracic or lumbosacral neuritis or radiculitis, unspecified documented in this encounter Administered Medications Inactive Administered Medications - up to 3 most recent administrations Medication Order MAR Action Action Date Dose Rate Site BUpivacaine (MARCAINE) 0.25 % injection As needed, Starting on 09/08/19 at 1444, Until 09/08/19 at 1459, Intra-Op Given 09/08/2019 2:57 PM CDT 4 mLs Javier k lidocaine (PF) (XYLOCAINE) 1 % injection As needed, Starting on 09/08/19 at 1444, Until 09/08/19 at 1709, Intra-Op Given 09/08/2019 2:50 PM CDT 2 mLs Javier k methylPREDNISolone acetate (DEPO-Medrol) injection As needed, Starting on e 09/08/19 at 1444, Until Tu09/08/19 at 1459, Intra-Op Given 09/08/2019 2:57 PM CDT 160 mg Javier k documented in this encounter Active and Recently Administered Medications Times are shown in CDT. PRN Medication Order 09/06/2019 09/07/2019 09/08/2019 BUpivacaine (MARCAINE) 0.25 % injection (CANCELED) As needed, Starting on 09/08/19 at 1444, Until 09/08/19 at 1459, Intra-Op 1457 (Given - Provid er: Francie Christiansen MD) lidocaine (PF) (XYLOCAINE) 1 % injection As needed, Starting on 09/08/19 at 1444, Until 09/08/19 at 1709, Intra-Op 1450 (Given - Provid er: Francie Christiansen MD) methylPREDNISolone acetate (DEPO-Medrol) injection (CANCELED) As needed, Starting on 09/08/19 at 1444, Until 09/08/19 at 1459, Intra-Op 1444 (Canceled Entry - Provider: Francie Christiansen MD)1457 (Given - Provider: Francie Christiansen MD) documented in this encounter Care Teams Section Cutter Relationship Specialty Start Date End Date René Smallwood MD PCP - General FAMILY PRACTICE 02/23/19 documented as of this encounter
--- OUTSIDE RECORDS SUMMARY | 2024-05-11 17:29 | XMS_ITS | Encounter Summary ---
Author Organization [facility] Address [address] [place] [address]. [place], [place] [address] [place] [address] Care Team Providers Care Nutrition Director Name Role Phone René Smallwood MD Primary Care Provider +1- [phone] Encounter Details Date Type Department Care Team (Latest Contact Info) Description 08/27/2019 Travel Social History Tobacco Use Types Packs/Day [...] on filedocumented in this encounter Care Teams Nutrition Director Relationship Specialty Start Date End Date René Smallwood MD PCP - General FAMILY PRACTICE 02/23/19 documented as of this encounter
--- OUTSIDE RECORDS SUMMARY | 2024-05-11 17:29 | XMS_ITS | Encounter Summary ---
Author Organization [facility] Address [address] [place] [address]. [place], [place] [id number] [place] [place] [address] Care Team Providers Care Manager Of Human Resources Name Role Phone René Smallwood MD Primary Care Provider [phone]- [phone] Reason for Referral * Surgical (Routine) - Closed Specialty Diagnoses / Procedures Referred By Liz falcon Referred To Contact Procedures Case request operating room: INJECTION EPIDURAL TRANSFORAMINAL l45 and l5s1 Karina Christiansen MD [facility] [address] [place] [address] Phone: tel: fax: Referral ID Status Reason Start Date Expiration Date Visits Re quested Visits Authorized [id number] Closed 09/08/2019 10/07/2020 1 1 Reason for Visit * Auth/Cert Specialty Diagnoses / Procedures Referred By Liz falcon Referred To Contact Diagnoses Lumbar radiculopathy lumbar radiculopathy Procedures INJECTION EPIDURAL TRANSFORAMINAL L4-5, L5-S1 Referral ID Status Reason Start Date Expiration Date Visits Re quested Visits Authorized [id number] 1 1 Encounter Details Date Type Department Care Team (Latest Contact Info) Description 09/08/2019 1:57 PM CDT - 09/08/2019 3:09 PM CDT Hospital Encounter [facility] Interventional [facility] [place] [id number] Karina Christiansen MD [facility] [address] [place] [address] Discharge Disposition: Home or Self Care (Routine [...] encounter Discharge Instructions * Discharge Instructions* Mona Mei RN - 09/08/2019 3:09 PM CDT PLEASE CALL WITH YOUR PERCENTAGE OF RELIEF IN 2 WEEKS. Please call [phone] Ext. [phone] option 4. You may need to leave [...] medications as prescribed with sips of water. [place] Interventional Pain Management Discharge Instructions You [...] DOCTOR AND HOW TO REACH US: Call [phone] ext. [phone] for scheduling, insurance questions or speak with [...] as of this encounter H&P Notes * Karina Christiansen MD - 09/08/2019 2:05 PM CDT HISTORY AND PHYSICAL INTERVAL NOTE: I have reviewed Marnie Roque History & Physical which was performed within the past 30 days. After examining Marnie Juan Mya, no change has occurred in the patient's condition since the H&P was completed. Informed Consent Discussion: Risks, benefits, alternatives as well as the consequences of not performing the surgery/procedure were discussed with the patient and/or family/personal account retention representative. Questions were answered and the patient/family/personal account retention representative verbalized understanding and desires to proceed. Previous Adverse Experience with Sedation, Analgesia, or Anesthesia? Yes (please explain) Risk benefits and alternate treatments were discussed. Signed: KARINA CHRISTIANSEN MD 2:05 PM Source Note - [...] The most recent surgery was completed at [facility] by David Ba MD on 06/19/2018. Prior [...] file Gets together: Not on file Attends sabianism service: Not on file Active member of [...] an MRI of the lumbar spine at [facility] on 01/16/2019. This report was reviewed [...] 3. Osteoarthritis bilateral knees PLAN 30 minutes [id number] time spent with the patient today. Results [...] OSPINA CC: René Smallwood MD Cosigned by Karina Christiansen MD at 08/31/2019 10:22 AM CDT documented in this encounter OR Notes * Op Note - Karina Christiansen MD - 09/08/2019 3:01 PM CDT PROCEDURE: LUMBAR TRANSFORAMINAL EPIDURAL STEROID INJECTION UNDER FLUOROSCOPY LEVELS: Bilateral L4-5 and L5-S1 PREOPERATIVE DIAGNOSIS: LUMBAR RADICULOPATHY POSTOPERATIVE DIAGNOSIS: SAME PREOP SURGEON: KARINA CHRISTIANSEN MD RISKS, BENEFITS, ALTERNATE TREATMENTS DISCUSSED. [...] review associated procedure and/or operative report. us Karina Christiansen MD GENERAL IMAGING Final Result documented [...] MAR Action Action Date Dose Rate Site lidocaine (PF) (XYLOCAINE) 1 % injection As needed, Starting on 09/08/19 at 1444, Until 09/08/19 at 1709, Intra-Op Given 09/08/2019 2:50 PM CDT 2 mLs Back documented in this encounter Active and Recently Administered Medications Times are shown in CDT. PRN Medication Order 09/06/2019 09/07/2019 09/08/2019 BUpivacaine (MARCAINE) 0.25 % injection (CANCELED) As needed, Starting on 09/08/19 at 1444, Until 09/08/19 at 1459, Intra-Op 1457 (Given - Provid er: Karina Christiansen MD) lidocaine (PF) (XYLOCAINE) 1 % injection As needed, Starting on 09/08/19 at 1444, Until 09/08/19 at 1709, Intra-Op 1450 (Given - Provid er: Karina Christiansen MD) methylPREDNISolone acetate (DEPO-Medrol) injection (CANCELED) As needed, Starting on 09/08/19 at 1444, Until 09/08/19 at 1459, Intra-Op 1444 (Canceled Entry - Provider: Karina Christiansen MD)1457 (Given - Provider: Karina Christiansen MD) documented in this encounter Care Teams Manager Of Human Resources Relationship Specialty Start Date End Date René Smallwood MD PCP - General FAMILY PRACTICE 02/23/19 documented as of this encounter
--- OUTSIDE RECORDS SUMMARY | 2024-05-11 17:29 | XMS_ITS | Encounter Summary ---
Author Organization [facility] Address [address] [place] [address]. [place] [address] Care Team Providers Care Hook Up Name Role Phone René Smallwood MD Primary Care Provider [phone]- [phone] Reason for Referral * (Routine) - Canceled Specialty Diagnoses / Procedures Referred By Contac t Referred To Contact Procedures OT eval and treat Bo Huerta MD [address] [place] [id number] Phone: tel: fax: Referral ID Status Reason Start Date Expiration Date V isits Requested Visits Authorized [id number] Canceled 01/22/2022 01/22/2023 1 1 * (Routine) - Canceled Specialty Diagnoses / Procedures Referred By Contac t Referred To Contact Procedures PT eval and treat Bo Huerta MD [address] [place] [address] Phone: tel: fax: Referral ID Status Reason Start Date Expiration Date V isits Requested Visits Authorized [id number] Canceled 01/22/2022 01/22/2023 1 1 Reason for Visit * Auth/Cert Specialty Diagnoses / Procedures Referred By Contac t Referred To Contact Diagnoses FAILED RIGHT TOTAL KNEE Procedures REVISION RIGHT TOTAL KNEE ARTHROPLASTY POLYETHYLENE EXCHANGE, SYNOVECTOMY, LYSIS OF ADHESIONS Bo Huerta MD [address] [place] [address] Phone: tel: fax: Referral ID Status Reason Start Date Expiration Date Visits Re quested Visits Authorized [id number] 1 1 Encounter Details Date Type Department Care Team (Latest Contact Info) Description 01/22/2022 6:33 AM CDT - 01/22/2022 4:35 PM CDT Hospital Encounter [place] [address] Bo Huerta MD [address] [place] [address] Discharge Disposition: Home or Self Care (Routine [...] or climbing stairs? Yes 01/22/2022 7:43 AM Tico Patel RN Active * Question Answer Date of Assessment Author Status Do you have difficulty dressing or bathing? No 01/22/2022 7:43 AM Sangeetha Patel RN Active Because of a physical, mental, [...] Date Author Status No 01/22/2022 7:43 AM CDT Wanda Olivo RN Active documented in this encounter Discharge Instructions * Discharge Instructions* Arabella Cardoza RN - 01/22/2022 12:16 PM CDT * Attachments The following attachments cannot be sent through Care Everywhere. * General Anesthesia Discharge Instructions (Citizen Of [place]) * Nerve Blocks (Citizen [place]) * Total Knee Replacement Discharge Instructions ([place]izen [place]) * How to Prevent Surgical Site Infections (Citizen Of [place]) * How to Prevent Blood Clots (Citizen Of [place]) * Aspirin, ADULT (Citizen [place]) * Dexamethasone (Systemic), ADULT (Citizen [place]) * Sulfamethoxazole and Trimethoprim, ADULT ([place]izen [place]) documented in this encounter Medications at Time [...] of this encounter Progress Notes * Anny Villagran Benito, PT - 01/22/2022 3:48 PM CDT PT Initial Evaluation Discharge Recommendation: home with assistance; outpatient P/T DME equipment recommendation: Patient owns a 2 wheeled walker Activity Recommendation for buggy operator: Up with supervision and walker; WBAT RLE 01/22/22 1548 Therapy Visit Ordering Provider MD Yosef PT Evaluation Completed on 01/22/22 Subjective RN approved therapy session. Patient was sitting at EOB upon entering PreAn 11, boyfriend present. Both agreeable to therapy [...] Provided education on alternate techniques (owns leg employee benefits specialist if needed) TRANSFERS Sit to Stand SBA/supervision [...] to bed Education: Primary Learners Name: Marnie Roque Primary Language of learner: Citizen Of [place] Patient S.O. was educated on precautions exercises [...] MD - 01/22/2022 10:28 AM CDT Marnie Juan Mya, 1965, CSN: @[email or web address]@ D ALEJO HUERTA MD 01/22/2022 Surgeon: Bo HUERTA MD Anesthesia: Anesthesiologist: Mark Mistry MD CHEMICAL PROCESSING EQUIPMENT REPAIRER: Rachel Hernandez CRNA Implants: Implant Name Type Inv. Item Serial No. Glass Cut Off Tender Lot No. LRB No. Used Action ROTATING PLATFORM INSERT SIZE 5 - 10MM SYNTHES [id number] Right 1 Implanted Preoperative diagnosis: Flexion contracture right total knee Operation proposed: Revision of polyethylene right total knee Postoperative diagnosis: As preop Operation performed: As preop expanded function dental assistant: Nikolay Mccollum PA-C, Leon Allen Indications [...] DESCRIPTION KNEE,RIGHT: [place] 01/22/2022 12:04 PM CDT [facility] SPECIAL REQUESTS SURGERY 01/22/2022 12:04 PM CDT [facility] GRAM STAIN RESULT NO NEUTROPHILS OR ORGANISMS SEEN 01/22/2022 3:58 PM CDT [facility] CULTURE RESULT NO GROWTH 5 DAYS 01/27/2022 10:41 AM CDT [facility] BODY FLUID STRUCTURE OF RIGHT KNEE REGION / Unknown 01/22/2022 9:56 AM CDT us Bo Huerta MD MICROBIOLOGY - GENERAL ORDERAB LES Final Result [facility] [address] [place] [address], [place] [phone] [id number] * CULTURE, ANAEROBIC (01/22/2022 9:56 AM CDT) SPEC DESCRIPTION KNEE,RIGHT: [place] 01/22/2022 12:03 PM CDT [facility] SPECIAL REQUESTS SURGERY 01/22/2022 12:03 PM CDT [facility] CULTURE RESULT NO ANAEROBES ISOLATED 01/27/2022 10:41 AM CDT [facility] BODY FLUID STRUCTURE OF RIGHT KNEE REGION / Unknown 01/22/2022 9:56 AM CDT us D Alejo Huerta MD MICROBIOLOGY - GENERAL ORDERAB LES Final Result [facility] [address] [place] [address], [id number] * CELL COUNT W/ DIFF BODY FLUID (01/22/2022 9:56 AM CDT) SOURCE (FLUID) KNEE,RIGHT 01/22/2022 1:20 PM CDT [facility] Comment:SYNOVIAL FLUID WBC (FLUID) 0.408 x10'3/uL 01/22/2022 1:20 PM CDT [facility] Comment:REFERENCE RANGE NOT ESTABLISHED RBC (FLUID) 0.031 x10'6/uL 01/22/2022 1:20 PM CDT [facility] Comment:REFERENCE RANGE NOT ESTABLISHED DIFFERENTIAL MANUAL DIFFERENTIAL PERFORMED ON CONCENTRATED CYTOSPIN 01/22/2022 10:20 AM CDT [facility] CELLS COUNTED 100 No COUNTED 01/22/2022 2:09 PM CDT [facility] SEGS (FLUID) 43 % 01/22/2022 2:09 PM CDT [facility] LYMPHS (FLUID) 28 % 01/22/2022 2:09 PM CDT [facility] OTHER MONONUCLEAR CELLS (FLD) 29 % 01/22/2022 2:09 PM CDT [facility] BODY FLUID STRUCTURE OF RIGHT KNEE REGION / Unknown 01/22/2022 9:56 AM CDT Bo Huerta MD BODY FLUIDS AND STOOLS ORDERAB LES Final Result [facility] [address] [place] [address], [place] [phone] documented in this encounter Visit Diagnoses Not on filedocumented in this encounter Administered Medications Inactive Administered Medications - up to 3 most recent administrations Medication Order MAR Action Action Date Dose Rate Site acetaminophen (TYLENOL) tablet 1,000 mg 1,000 mg, Oral, call center assistant, 1 dose, On Sat01/22/22 at 0745, Pre-Op Given 01/22/2022 8:06 AM CDT 1,000 mg ceFAZolin (ANCEF) 2 g in SW 20 [...] 10 mg 10 mg, Intravenous, call center assistant, 1 dose, On Sat01/22/22 at 0745, Pre-Op [...] 100 mg 100 mg, Oral, call center assistant, 1 dose, On Sat01/22/22 at 0745, Pre-Op Given 01/22/2022 8:06 AM CDT 100 mg documented in this encounter Active and Recently Administered Medications Times are shown in CDT. Scheduled Medication Order 01/20/2022 01/21/2022 01/22/2022 acetaminophen (TYLENOL) tablet 1,000 mg (COMPLETED) 1,000 mg, Oral, call center assistant, 1 dose, On Sat01/22/22 at 0745, Pre-Op 0806 (Given - Provid er: Natalie Olivo RN) ceFAZolin (ANCEF) 2 g in SW 20 mL IV syringe (COMPLETED) 2 g, Intravenous, at 240 mL/hr, call center assistant, 1 dose, On Sat01/22/22 at 0745, Pre-Op [...] saturated swab to clean oral cavity., Pre-Op 0806 (Given - Provid er: Natalie Olivo RN) dexamethasone PF (DECADRON) injection 10 mg (COMPLETED) 10 mg, Intravenous, call center assistant, 1 dose, On Sat01/22/22 at 0745, Pre-Op 0806 (Given - Provid er: Natalie Olivo RN) traMADol (ULTRAM) tablet 100 mg (COMPLETED) 100 mg, Oral, call center assistant, 1 dose, On Sat01/22/22 at 0745, Pre-Op [...] in 24 hours., Post-Op BUpivacaine-EPINEPHrine (PF) 0.25% -[id number] injection (CANCELED) As needed, Starting on Sat01/22/22 [...] RN) documented in this encounter Care Teams Hook Up Relationship Specialty Start Date End Date René Smallwood MD PCP - General FAMILY PRACTICE 02/23/19 documented as of this encounter
--- OUTSIDE RECORDS SUMMARY | 2024-05-11 17:29 | XMS_ITS | Encounter Summary ---
Author Organization [facility] Address [address] [place] [address]. [place], [place] [id number] [place] [address] Care Team Providers Care Janitorial Services Supervisor Name Role Phone René Smallwood MD Primary Care Provider +1- [phone] Reason for Visit * Auth/Cert Specialty Diagnoses / Procedures Referred By Liz falcon Referred To Contact Diagnoses Lumbar disc herniation Lumbar disc herniation [M51.26] Procedures INJECTION EPIDURAL TRANSFORAMINAL L4-5 Referral ID Status Reason Start Date Expiration Date Visits Re quested Visits Authorized [id number] 1 1 Encounter Details Date Type Department Care Team (Late st Contact Info) Description 07/01/2019 1:40 PM CLOTHING SUPERVISOR - 07/01/2019 2:00 PM CLOTHING SUPERVISOR Surgery [facility] Interventional [place] [address] [id number] Karina Christiansen MD [facility] [address] [place] [address] INJECTION EPIDURAL TRANSFORAMINAL L4-5 Surgery Details Date/Time Status Location OR Service Patient Class Case Class Case Type Trauma Case? 07/01/2019 1:40 PM Posted [facility] Proc Rm Pain Medicine Short Stay/Outpa tient Surgery No Panel 1 Procedure LRB Anes Op Region Wound Class Comments INJECTION EPIDURAL TRANSFORAMINAL L4-5 Bilateral Local Clean RTN PT NO BLOOD THINNERS BILATERAL INJECTION EPIDURAL TRANSFORAMINAL L4-5 CVTY GOLD REFERRED BY Therese MORALES MD 06/17/2019 [facility] Surgeon Surgeon Role Service Panel Karina Christiansen MD Primary Pain Medicine 1 documented [...] Sign Reading Time Taken Comments Blood Pressure 130/87 07/01/2019 1:35 PM CLOTHING SUPERVISOR Pulse 79 07/01/2019 1:33 PM CLOTHING SUPERVISOR Temperature 36.6 ??C (97.9 ??F) 07/01/2019 1:02 PM CS T Respiratory Rate 18 07/01/2019 1:33 PM CLOTHING SUPERVISOR Oxygen Saturation 97% 07/01/2019 1:33 PM CLOTHING SUPERVISOR Inhaled Oxygen Concentration - - Weight 93.4 kg (206 lb) 07/01/2019 1:02 PM CLOTHING SUPERVISOR Height 154.9 cm (5' 1 ) 07/01/2019 1:02 PM CLOTHING SUPERVISOR Body Mass Index 38.92 07/01/2019 1:02 PM CLOTHING SUPERVISOR documented in this encounter Discharge Instructions * Discharge Instructions* Mona Mei RN - 07/01/2019 1:51 PM CLOTHING SUPERVISOR FOLLOW UP WITH DR MORALES [facility] Interventional Pain Management Discharge Instructions WHAT TO DO TODAY: - Limit your [...] medicine, please get your refill from the physician who fist prescribed it for you. - For [...] DOCTOR AND HOW TO REACH US: Call [phone] ext. [phone] for scheduling, insurance questions or speak with [...] PLEASE GO TO THE EMERGENCY ROOM IMMEDIATELY! HING SUPERVISOR documented in this encounter Medications at Time of Discharge diazepam 5 MG tablet Take 5 mg by mouth. 12/16/2017 topiramate 50 MG Tab Take 50 mg by mouth 2 (two) times daily. 3 04/01/2019 Levothyroxine Sodium 112 MCG Cap Take 112 mcg by mouth daily. 12/30/2017 01/22/2022 documented as of this encounter H&P Notes * Karina Christiansen MD - 07/01/2019 12:57 PM CST Admission Note With PreProc Assess CC: Low back and bilateral leg pain HPI: 53 year old Female seen as a follow up. Patient last seen 05/18/2019. Patient underwent a lumbar transforaminal injection with approximately 40% relief. Patient has since been seen by Dr. Logan Morales. Dr. Morales sent her to see orthopedic doctor regarding her knees. She was told the pain is not coming from her knees. Pain is still a similar location. Patient still ambulates with the assistance of a crutch. Prior to Admission medications Medication Sig Start Date End Date Taking? Authorizing Provider diazepam 5 MG tablet Take 5 mg by mouth. 12/16/17 Doc Abstract Levothyroxine Sodium 112 MCG Cap Take 112 mcg by mouth daily. 12/30/17 Doc Abstract topiramate 50 MG Tab Take 50 mg by mouth 2 (two) times daily. 04/01/19 Doc Abstract No Known Allergies No past medical history on file. No past surgical history on file. Social History Socioeconomic History ??? Marital status: Single Spouse name: Not on file ??? Number of children: Not on file ??? Years of education: Not on file ??? Highest education level: Not on file Occupational History ??? Not on file Social Needs ??? Financial resource strain: Not on file ??? Food insecurity: Worry: Not on file Inability: Not on file ??? Transportation needs: Medical: Not on file Non-medical: Not on file Tobacco Use ??? Smoking status: Former Smoker ??? Smokeless tobacco: Never Used Substance and Sexual Activity ??? Alcohol use: Not on file ??? Drug use: Not on file ??? Sexual activity: Not on file Lifestyle ??? Physical activity: Days per week: Not on file Minutes per session: Not on file ??? Stress: Not on file Relationships ??? Social connections: Talks on phone: Not on file Gets together: Not on file Attends mosque service: Not on file Active member of club or organization: Not on file Attends meetings of clubs or organizations: Not on file Relationship status: Not on file ??? Intimate partner violence: Fear of current or ex partner: Not on file Emotionally abused: Not on file Physically abused: Not on file Forced sexual activity: Not on file Other Topics Concern ??? Not on file Social History Narrative ??? Not on file Review of Systems: no changes except specified in HPI, no bladder or bowel incontinence PHYSICAL EXAM There were no vitals filed for this visit. General: alert, appears stated age and cooperative Skin: normal and no rash or abnormalities HEENT: neck supple with midline trachea Lungs: no respiratory distress Heart: regular rate and rhythm Abdomen: soft Neuro: Patient ambulates with the assistance of a crutch. Patient exhibits tenderness along her knees however there is no edema or deformity. Reflexes 1+ patella and Achilles equal bilaterally ASSESSMENT Lumbar radiculopathy PLAN 53-year-old female seen as a follow-up with proceed bilateral L4-5 lumbar transforaminal junction. Patient will then follow-up with Dr. Logan Morales. Patient agreeable to plan. Risks including, but not limited to infection, permanent neurological deficit due to nerve root injury, bleeding, anaphylaxis, flushing, cerebral spinal fluid leak, paralysis, spinal cord injury, thinning of the skin, thinning of the bones, muscle cramping. HING SUPERVISOR documented in this encounter OR Notes * Op Note - Karina Christiansen MD - 07/01/2019 1:34 PM CST PROCEDURE: LUMBAR TRANSFORAMINAL EPIDURAL STEROID INJECTION UNDER FLUOROSCOPY LEVELS: Bilateral L4-5 PREOPERATIVE DIAGNOSIS: LUMBAR RADICULOPATHY POSTOPERATIVE DIAGNOSIS: SAME [...] OBLIQUE X RAY VIEW. TARGET FOR L 45 NERVE ROOT IS THE 6 O???CLOCK POSITION OF THE PEDICLE SHADOW IN THE OBLIQUE X RAY VIEW AT THE LEVEL OF L 4-5 ON THE Left and Right SIDE. APPROPRIATE [...] OVER THE NEXT FEW DAYS FOR FOLLOWUP. HING SUPERVISOR documented in this encounter Plan of Treatment Not on file documented as of this encounter Procedures Procedure Name Priority Date/Time Associated Diagnosis Comments INJECTION EPIDURAL TRANSFORAMINAL 07/01/2019 1:28 PM CLOTHING SUPERVISOR Lumbar disc herniation XR PAIN CLINIC C-ARM Today 07/01/2019 12:45 PM CLOTHING SUPERVISOR documented in this encounter Results * XR PAIN CLINIC C-ARM (07/01/2019 12:45 PM CLOTHING SUPERVISOR) Narrative Radiology, Technologist - 07/01/2019 12:45 PM CLOTHING SUPERVISOR This report does not contain a radiologist's interpretation. Please review associated procedure and/or operative report. us Karina Christiansen MD GENERAL IMAGING Final Result documented in this encounter Visit Diagnoses Diagnosis Lumbar disc herniation Displacement of lumbar intervertebral disc without myelopathy documented in this encounter Administered Medications Inactive Administered Medications - up to 3 most recent administrations Medication Order MAR Action Action Date Dose Rate Site BUpivacaine (MARCAINE) 0.25 % injection As needed, Starting on Sat07/01/19 at 1322, Until Sat07/01/19 at 1335, Intra-Op Given 07/01/2019 1:22 PM CLOTHING SUPERVISOR 2 mLs Back diazepam (VALIUM) tablet 10 mg 10 mg, Oral, Every 6 hours PRN, one dose, Starting on Sat07/01/19 at 1312, Until 07/01/19 at 1552 Given 07/01/2019 1:15 PM CLOTHING SUPERVISOR 10 mg lidocaine (PF) (XYLOCAINE) 1 % injection As needed, Starting on Sat07/01/19 at 1322, Until Sat07/01/19 at 1335, Intra-Op Given 07/01/2019 1:22 PM CLOTHING SUPERVISOR 2 mLs Back methylPREDNISolone acetate (DEPO-MEDROL) injection As needed, Starting on Sat07/01/19 at 1323, Until 07/01/19 at 1335, Intra-Op Given 07/01/2019 1:23 PM CLOTHING SUPERVISOR 80 mg Back documented in this encounter Active and Recently Administered Medications Times are shown in CLOTHING SUPERVISOR. PRN Medication Order 06/29/2019 06/30/2019 07/01/2019 BUpivacaine (MARCAINE) 0.25 % injection (CANCELED) As needed, Starting on Sat07/01/19 at 1322, Until 07/01/19 at 1335, Intra-Op 1322 (Given - Provid er: Karina Christiansen MD) diazepam (VALIUM) tablet 10 mg 10 mg, Oral, Every 6 hours PRN, one dose, Starting on Sat07/01/19 at 1312, Until Sat07/01/19 at 1552 1315 (Given - Provid er: Augustina Haider RN) lidocaine (PF) (XYLOCAINE) 1 % injection (CANCELED) As needed, Starting on Sat07/01/19 at 1322, Until 07/01/19 at 1335, Intra-Op 1322 (Given - Provid er: Karina Christiansen MD) methylPREDNISolone acetate (DEPO-MEDROL) injection (CANCELED) As needed, Starting on 07/01/19 at 1323, Until 07/01/19 at 1335, Intra-Op 1323 (Given - Provid er: Karina Christiansen MD) documented in this encounter Care Teams Janitorial Services Supervisor Relationship Specialty Start Date End Date René Smallwood MD PCP - General FAMILY PRACTICE 02/23/19 documented as of this encounter
--- OUTSIDE RECORDS SUMMARY | 2024-05-11 17:29 | XMS_ITS | Encounter Summary ---
Author Organization [facility] Address [address] [place] [address]. [place], [place] [id number] [place] [address] Care Team Providers Care Aircraft Landing Gear Inspector Name Role Phone René Smallwood MD Primary Care Provider +1- [phone] Reason for Visit * Reason Comments Lab (SCAN) Encounter Details Date Type Department Care Team (Late st Contact Info) Description 01/17/2022 Scan [facility] Information Services [address] [place] [address] Scanned, Documents Lab (SCAN) Social History Tobacco Use Types Packs/Day [...] documented as of this encounter Functional Status documented as of this encounter Mental Status * Question Answer Entry Date Author Status Because of a physical, mental, or emotional condition, do you have serious difficulty concentrating, remembering, or making decisions? No 01/22/2022 7:43 AM CDT Sangeetha Olivo RN Active documented in this encounter Plan of Treatment Not on file documented as of this encounter Procedures Procedure Name Priority Date/Time Associated Diagnosis Comments OUTSIDE LAB (SCAN ORDER) Routine 01/17/2022 12:00 AM CDT documented in this encounter Results * OUTSIDE LAB (SCAN) (01/17/2022 12:00 AM CDT) 01/17/2022 us Documents Scanned SCANNING Final Result [facility] documented in this encounter Visit Diagnoses Not on filedocumented in this encounter Care Teams Aircraft Landing Gear Inspector Relationship Specialty Start Date End Date René Smallwood MD PCP - General FAMILY PRACTICE 02/23/19 documented as of this encounter
--- OUTSIDE RECORDS SUMMARY | 2024-05-11 17:29 | XMS_ITS | Encounter Summary ---
Author Organization [facility] Address [address] [place] [address]. [place], [place] [address] [place] [address] Care Team Providers Care Leather Belt Loop Cutter Name Role Phone René Smallwood MD Primary Care Provider +1- [phone] Reason for Referral * Surgical (Routine) - Closed Specialty Diagnoses / Procedures Referred By Liz falcon Referred To Contact Procedures Case request operating room: INJECTION EPIDURAL TRANSFORAMINAL L4-5, L5-S1 Soco Gonzales APNP Phone: tel: fax: Referral ID Status Reason Start Date Expiration Date Visits Re quested Visits Authorized [id number] Closed 09/02/2019 10/01/2020 1 1 Encounter Details Date Type Department Care Team (Late st Contact Info) Description 09/02/2019 Prep for Procedure [facility] [place] [address] [id number] Soco Gonzales APNP [address] [place] [phone] Social History Tobacco Use Types Packs/Day Years [...] as of this encounter Plan of Treatment Scheduled Orders Name Type Priority Associated Diagnoses Order Schedule Case request operating room: INJECTION EPIDURAL TRANSFORAMINAL L4-5, L5-S1 Case Request Routine Once for 1 Occurrences starting 09/02/2019 until 09/02/2019 documented as of this encounter Visit Diagnoses Not on filedocumented in this encounter Care Teams Leather Belt Loop Cutter Relationship Specialty Start Date End Date René Smallwood MD PCP - General FAMILY PRACTICE 02/23/19 documented as of this encounter
--- OUTSIDE RECORDS SUMMARY | 2024-05-11 17:29 | XMS_ITS | Encounter Summary ---
Author Organization [facility] Address [address] [place] [address]. [place], [place] [address] [place] [address] Care Team Providers Care Property Clerk Name Role Phone René Smallwood MD Primary Care Provider +1- [phone] Reason for Visit * Reason Onset Date Comments Follow Up Call 02/18/2020 Encounter Details Date Type Department Care Team (Late st Contact Info) Description 02/18/2020 Telephone [facility] Multispecialty Care - [facility] [address] [facility] [place] [address] Logan Morales MD Follow Up Call Social History Tobacco Use Types Packs/Day Years [...] as of this encounter Progress Notes * Vonda Salcido RN - 02/19/2020 2:46 PM CDT I called today and was not able to reach the appropriate person. If they need records, again, they will need to send an MAHAD. * Vonda Salcido RN - 02/18/2020 12:14 PM CDT I checked the referral to our office. According to our referral, she was referred by her PMD. If [facility] wants the notes, we need an MAHAD. I called their office, , but phones were off for lunch. I will call later today to request the MAHAD. * Radha Escudero - 02/18/2020 10:00 AM CDT [facility] called to request office note from July 2019, Dr Suzan Sanches Nurse Practitioner referred pt to us and hasnt gotten any f/u documented in this encounter Plan of Treatment Not on file documented as of this encounter Visit Diagnoses Not on filedocumented in this encounter Care Teams Property Clerk Relationship Specialty Start Date End Date René Smallwood MD PCP - General FAMILY PRACTICE 02/23/19 documented as of this encounter
--- OUTSIDE RECORDS SUMMARY | 2024-05-11 17:29 | XMS_ITS | Encounter Summary ---
Author Organization [facility] Address [address] [place] [address]. [place], [place] [address] [place] [address] Care Team Providers Care Refrigerator Repair Technician Name Role Phone René Smallwood MD Primary Care Provider +1- [phone] Encounter Details Date Type Department Care Team (Latest Contact Info) Description 09/08/2019 Travel Social History Tobacco Use Types Packs/Day [...] on filedocumented in this encounter Care Teams Refrigerator Repair Technician Relationship Specialty Start Date End Date René Smallwood MD PCP - General FAMILY PRACTICE 02/23/19 documented as of this encounter
--- OUTSIDE RECORDS SUMMARY | 2024-05-11 17:29 | XMS_ITS | Encounter Summary ---
Author Organization [facility] Address [address] [place] [address]. [place], [place] [address] [place] [address] Care Team Providers Care Banbury Operator Name Role Phone René Smallwood MD Primary Care Provider +1- [phone] Reason for Visit * Auth/Cert Specialty Diagnoses / Procedures Referred By Contac t Referred To Contact Diagnoses Lumbar disc herniation Lumbar disc herniation [M51.26] Procedures INJECTION EPIDURAL TRANSFORAMINAL L4-5 Referral ID Status Reason Start Date Expiration Date Visits Re quested Visits Authorized [id number] 1 1 Encounter Details Date Type Department Care Team (Latest Contact Info) Description 07/01/2019 12:43 PM BEVEL OPERATOR - 07/01/2019 1:52 PM BEVEL OPERATOR Hospital Encounter [facility] Inter[facility] [place] [address] [id number] Karina Christiansen MD Three [facility] [address] [place] [address] Discharge Disposition: Home or Self Care (Routine [...] Comments Blood Pressure 130/87 07/01/2019 1:35 PM BEVEL OPERATOR Pulse 79 07/01/2019 1:33 PM BEVEL OPERATOR Temperature 36.6 ??C (97.9 ??F) 07/01/2019 1:02 PM CS T Respiratory Rate 18 07/01/2019 1:33 PM BEVEL OPERATOR Oxygen Saturation 97% 07/01/2019 1:33 PM BEVEL OPERATOR Inhaled Oxygen Concentration - - Weight 93.4 kg (206 lb) 07/01/2019 1:02 PM BEVEL OPERATOR Height 154.9 cm (5' 1 ) 07/01/2019 1:02 PM BEVEL OPERATOR Body Mass Index 38.92 07/01/2019 1:02 PM BEVEL OPERATOR documented in this encounter Discharge Instructions * Discharge Instructions* Mona Mei RN - 07/01/2019 1:51 PM BEVEL OPERATOR FOLLOW UP WITH DR RITESH Pacheco???s [facility] Interventional Pain Management Discharge Instructions WHAT [...] DOCTOR AND HOW TO REACH US: Call [phone] for scheduling, insurance questions or speak with [...] PLEASE GO TO THE EMERGENCY ROOM IMMEDIATELY! L OPERATOR documented in this encounter Medications at Time [...] file Gets together: Not on file Attends jewish service: Not on file Active member of [...] skin, thinning of the bones, muscle cramping. L OPERATOR documented in this encounter OR Notes * [...] OVER THE NEXT FEW DAYS FOR FOLLOWUP. L OPERATOR documented in this encounter Plan of Treatment Not on file documented as of this encounter Procedures Procedure Name Priority Date/Time Associated Diagnosis Comments INJECTION EPIDURAL TRANSFORAMINAL 07/01/2019 1:28 PM BEVEL OPERATOR Lumbar disc herniation XR PAIN CLINIC C-ARM Today 07/01/2019 12:45 PM BEVEL OPERATOR documented in this encounter Results * XR PAIN CLINIC C-ARM (07/01/2019 12:45 PM BEVEL OPERATOR) Narrative Radiology, Technologist - 07/01/2019 12:45 PM BEVEL OPERATOR This report does not contain a radiologist's interpretation. Please review associated procedure and/or operative report. Karina Christiansen MD GENERAL IMAGING Final Result documented in this encounter Visit Diagnoses Not on filedocumented in this encounter Administered Medications Inactive Administered Medications - up to 3 most recent administrations Medication Order MAR Action Action Date Dose Rate Site diazepam (VALIUM) tablet 10 mg 10 mg, Oral, Every 6 hours PRN, one dose, Starting on Sat07/01/19 at 1312, Until Sat07/01/19 at 1552 Given 07/01/2019 1:15 PM BEVEL OPERATOR 10 mg documented in this encounter Active and Recently Administered Medications Times are shown in BEVEL OPERATOR. PRN Medication Order 06/29/2019 06/30/2019 07/01/2019 BUpivacaine (MARCAINE) 0.25 % injection (CANCELED) As needed, Starting on Sat07/01/19 at 1322, Until Sat07/01/19 at 1335, Intra-Op 1322 (Given - Provid er: Karina Christiansen MD) diazepam (VALIUM) tablet 10 mg 10 mg, Oral, Every 6 hours PRN, one dose, Starting on Sat07/01/19 at 1312, Until Sat07/01/19 at 1552 1315 (Given - Provid er: Augustina Haider RN) lidocaine (PF) (XYLOCAINE) 1 % injection (CANCELED) As needed, Starting on Sat07/01/19 at 1322, Until Sat07/01/19 at 1335, Intra-Op 1322 (Given - Provid er: Karina Christiansen MD) methylPREDNISolone acetate (DEPO-MEDROL) injection (CANCELED) As needed, Starting on Sat07/01/19 at 1323, Until Sat07/01/19 at 1335, Intra-Op 1323 (Given - Provid er: Karina Christiansen MD) documented in this encounter Care Teams Banbury Operator Relationship Specialty Start Date End Date René Smallwood MD PCP - General FAMILY PRACTICE 02/23/19 documented as of this encounter
--- OUTSIDE RECORDS SUMMARY | 2024-05-11 17:29 | XMS_ITS | Encounter Summary ---
Author Organization [facility] Address [address] [place] [address]. [place], [place] [address] [place] [address] Care Team Providers Care Visual Design Lead Name Role Phone René Smallwood MD Primary Care Provider +1- [phone] Reason for Visit * Reason Comments Lab (SCAN) Encounter Details Date Type Department Care Team (Late st Contact Info) Description 01/15/2022 Scan [facility] Information Services [address] [place] [address] Scanned, Documents Lab (SCAN) Social History Tobacco [...] Diagnosis Comments OUTSIDE LAB (SCAN ORDER) Routine 01/15/2022 12:00 AM CDT documented in this encounter Results * OUTSIDE LAB (SCAN) (01/15/2022 12:00 AM CDT) 01/15/2022 us Documents Scanned SCANNING Final Result [facility] documented in this encounter Visit Diagnoses Not on filedocumented in this encounter Care Teams Visual Design Lead Relationship Specialty Start Date End Date René Smallwood MD PCP - General FAMILY PRACTICE 02/23/19 documented as of this encounter
--- OUTSIDE RECORDS SUMMARY | 2024-05-11 17:29 | XMS_ITS | Encounter Summary ---
Author Organization [facility] Address [address] [place] [address]. [place], [place] [address] [place] [address] Care Team Providers Care Rehabilitation Counsellor Name Role Phone René Smallwood MD Primary Care Provider +1- [phone] Encounter Details Date Type Department Care Team (Latest Contact Info) Description 08/03/2019 Travel Social History Tobacco Use Types Packs/Day Years Used Date Smoking Tobacco: Former Smokeless Tobacco: Never Comments No Sex and Gender Information Value Date Recorded Sex Assigned at Not on file Legal Sex Female 4:38 PM CDT Gender Identity Not on file Sexual Orientation Not on file documented as of this encounter Plan of Treatment Not on file documented as of this encounter Visit Diagnoses Not on filedocumented in this encounter Care Teams Rehabilitation Counsellor Relationship Specialty Start Date End Date René Smallwood MD PCP - General FAMILY PRACTICE 02/23/19 documented as of this encounter
--- OUTSIDE RECORDS SUMMARY | 2024-05-11 17:29 | XMS_ITS | Encounter Summary ---
Author Organization [facility] Address [address] [place] [address]. [place], [place] [address] [place] [address] Care Team Providers Care Clerical Office Worker Name Role Phone René Smallwood MD Primary Care Provider +1- [phone] Encounter Details Date Type Department Care Team (Latest Contact Info) Description 01/12/2022 Travel Social History Tobacco Use Types Packs/Day [...] on filedocumented in this encounter Care Teams Clerical Office Worker Relationship Specialty Start Date End Date René Smallwood MD PCP - General FAMILY PRACTICE 02/23/19 documented as of this encounter
--- OUTSIDE RECORDS SUMMARY | 2024-05-11 17:29 | XMS_ITS | Encounter Summary ---
Author Organization [facility] Address [address] [place] [address]. [place], [place] [address] [place] [address] Care Team Providers Care Fish Salter Name Role Phone René Smallwood MD Primary Care Provider +1- [phone] Reason for Visit * Auth/Cert Specialty Diagnoses / Procedures Referred By Liz falcon Referred To Contact Diagnoses FAILED RIGHT TOTAL KNEE Procedures REVISION RIGHT TOTAL KNEE ARTHROPLASTY POLYETHYLENE EXCHANGE, SYNOVECTOMY, LYSIS OF ADHESIONS Bo Navas MD [address] [place] [address] Phone: tel: fax: Referral ID Status Reason Start Date Expiration Date Visits Re quested Visits Authorized [id number] 1 1 Encounter Details Date Type Department Care Team (Late st Contact Info) Description 01/22/2022 9:17 AM CDT Anesthesia Event [facility] [address] [place] [address] Mark Mistry MD [address] [place] [address] [place] [address] Sujatha Hinojosa RN Anesthesia Record Procedure Summary Procedure Name Responsible Anesthesiologist Anesthesia Start Time Anesthesia Stop Time REVISION RIGHT TOTAL KNEE ARTHROPLASTY POLYETHYLENE EXCHANGE (Right: Knee) Mark Mistry MD 01/22/22 0917 01/22/22 1047 Events Date Time Event Comment 01/22/2022 0754 AN WAREHOUSE OPERATOR Prepped 0824 0824 AN Anesthesia Prepped 0917 An Start Patient ID and consent checked and patient reassessed. 0918 An Start Data 0919 AN Immediate Reassess The pa tient was reevaluated immediately before sedation or regional anesthesia. 0924 An Block 0925 Face Mask Applied 0932 Anesthesia Ready 104 Face Mask Removed 1042 an stop data 1046 Post Anesthetic Care Handoff I completed my handoff to the receiving nurse during which we: 1. Identified the patient 2. Identified the responsible provider 3. Reviewed the pertinent medical history 4. Discussed the surgical course 5. Reviewed intra-op anesthesia management and issues during anesthesia 6. Set expectations for post-procedure period 7. Allowed opportunity for questions and acknowledgement of understanding. 1047 An Stop Meds Name Total midazolam 2 mg/2 mL injection 2 mg BUpivacaine 0.75%-dextrose 8.25% intrath ecal injection 1.6 mL propofol (DIPRIVAN) 200 mg/20 mL injecti on 170 mg propofol (DIPRIVAN) 500 mg/50 mL injecti on 442.68 mg tranexamic acid (CYKLOKAPRON) injection 1,000 mg ceFAZolin (ANCEF) 2 g in SW 20 mL IV syr alise 2 g glycopyrrolate (ROBINUL) injection 0.2 m g phenylephrine (FRANSISCO-SYNEPHRINE) 1 mg/10 m L IV syringe 100 mcg BUpivacaine 0.5%-EPINEPHrine (PF) inject ion 30 mL lactated ringers infusion 800 mL * Agents Name O2 Ancillary O2 * Blood No blood administrations on file. Lines, Drains, and Airways Type Details Placement Removal Peripheral IV Placement Date: 01/22/22; Placement Time: 0804; Size: 20 G; Orientation: Right; Location: Hand; Site Prep: Chlorhexidine; Local Anesthetic: None; Inserted By: Colton olivo Rn; Insertion attempts: 1; Ultrasound-guided Placement?: No; Patient Tolerance: Tolerated well; Removal Date: 01/22/22; Removal Time: 1630; Removal Reason: Patient Discharged 01/22/22 0804 by Natalie Olivo RN 01/22/22 1630 by Araeblla Cardoza RN Surgical/Incision 01/22/22; 1018; Surgical Wound; Knee; Right; ADHESIVE DERMABOND PRINEO SKIN CLOSURE STRIP; 01/22/22; 1852 01/22/22 1018 by Berkley Figueroa RN 08/1851 by Automatic Discharge Provider documented in this encounter Social History Tobacco [...] 7:43 AM CDT Sangeetha Olivo RN Active * Because of a physical, mental, or emotional condition, do you have serious difficulty concentrating, remembering, or making decisions? Answer Entry Date Author Status No 01/22/2022 7:43 AM CDT Wanda Olivo RN Active documented in this encounter OR Notes * Anesthesia Postprocedure Evaluation - Sol Marcus MD - 01/22/2022 12:24 PM CDT Anesthesia Post-op Note Marnie Roque Procedure(s): REVISION RIGHT TOTAL KNEE ARTHROPLASTY POLYETHYLENE EXCHANGE (Right Knee) Anesthesia type: spinal Vitals: 01/22/22 1200 BP: 105/67 Vitals: 01/22/22 1200 Pulse: 66 Vitals: 01/22/22 1200 Resp: 16 Vitals: 01/22/22 1045 Temp: 36.8 ??C Vitals: 01/22/22 1200 SpO2: 96% Patient Location: PACU Level of Consciousness: awake, alert and oriented Pain Management: adequate analgesia Airway Patency: patent Respiratory Status: acceptable Cardiovascular Status: hemodynamically stable Post-Op Nausea: none Postoperative Hydration: euvolemic There were no known complications for this encounter. * Anesthesia Procedure Notes - Jevon Manzano MD - 01/22/2022 11:19 AM CDT Associated Order(s): Peripheral Block Peripheral Block Performed by: Jevon Manzano MD Authorized by: Mark Mistry MD Procedure Start: 01/22/2022 11:06 AM Procedure Stop: 01/22/2022 11:07 AM Patient Location: Post-op Reason for Block: at surgeon's request and post-op pain management patient identified, IV checked, site marked, risks and benefits discussed, consent, monitors and equipment checked, pre-op evaluation and timeout performed Patient Position: Supine Monitoring: Blood pressure, continuous pulse ox and ECG/EKG Prep: Chlorhexidine Draping: Sterile technique maintained Block Type: Femoral at Adductor Canal Laterality: Right Injection Technique: Single-shot Technique: ultrasound guided Needle Type: Stimuplex Needle Gauge: 21 G Needle Length: 4 in Needle Localization: Anatomical landmarks and ultrasound guidance Needle Insertion Depth: 3 Test Dose: Negative Local Volume: 30 Insertion Attempts: 1 Injection Assessment/ Attestation: Incremental injection, local visualized surrounding nerve on ultrasound, negative aspiration for heme, no apparent complications, no paresthesia on injection, paresthesia absent, well tolerated and ultrasound image saved Paresthesia Pain: None Heart Rate Change: No * Anesthesia Procedure Notes - Rachel Hernandez CRNA - 01/22/2022 9:30 AM CDT Associated Order(s): Spinal Block Spinal Block Patient location during procedure: OR Start time: 01/22/2022 9:24 AM Reason for block: primary anesthetic Staffing Performed: WAREHOUSE OPERATOR Anesthesiologist: Mark Mistry MD Resident/WAREHOUSE OPERATOR: Rachel Hernandez CRNA Preanesthetic Checklist Completed: patient identified, IV checked, site marked, risks and benefits discussed, surgical consent, monitors and equipment checked, pre-op evaluation and timeout performed Spinal Block Patient position: sitting Prep: ChloraPrep Sterility prep: mask, hand hygiene, gloves, drape and cap Sedation level: light sedation Patient monitoring: blood pressure, continuous pulse oximetry, EKG, heart rate and ETCO2 Approach: midline Location: L3-4 Injection technique: single-shot Needle Needle type: pencil-tip Needle gauge: 25 G Needle length: 10 cm Catheter type: stylet Assessment Block outcome: pain improved Number of attempts: 2 Procedure assessment: patient tolerated procedure well with no immediate complications * Anesthesia Preprocedure Evaluation - Mark Mistry MD - 01/17/2022 4:02 PM CDT Anesthesia ROS/MED History Reviewed: Patient summary , Nursing notes , ECG, Family history anesthesia, Anesthesia history , Medications , Labs , Unchecked boxes are not applicable Pre-Anesthetic State: alert, awake and responds appropriately no history of anesthetic complications Pulmonary neg pulmonary ROS Cardiovascular neg cardio ROS ROS comment: 01/03/22 EKG Sinus rhythm Neuro/Psych neg neuro/psych ROS (-) neuromuscular disease GI/Hepatic/Renal neg GI/hepatic/renal ROS Endo/Other (+) hypothyroidism Comments: Hx of chronic pain, 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 GENERAL COMMENTS H&P noted 01/03/22 Physical Evaluation Airway Mallampati: I TM Distance: >3 FB Neck ROM: normal Dental No notable dental history Pulmonary Pulmonary exam normal Breath sounds clear to auscultation Cardiovascular Rhythm: regular Rate: normal Cardiovascular exam normal Anesthesia Plan ASA 2 Induction Anesthesia type: spinal Plan for Post-op Pain Plan: block Adductor canal block discussed for post op pain Informed Consent . documented in this encounter Plan of Treatment Not on file documented as of this encounter Procedures Procedure Name Priority Date/Time Associated Diagnosis Comments AL AN PERIPHERAL BLOCK SINGLE-SHOT Routine 01/22/2022 11:19 AM CDT AN SPINAL Routine 01/22/2022 9:24 AM CDT documented in this encounter Results * AL AN PERIPHERAL BLOCK SINGLE-SHOT (01/22/2022 11:19 AM CDT) Narrative Jevon Manzano MD - 01/22/2022 11:19 AM CDT Jevon Manzano MD ? 01/22/2022 11:20 AM Peripheral Block Performed by: Jevon Manzano MD Authorized by: Mark Mistry MD Procedure Start: ??01/22/2022 11:06 AM Procedure Stop: ??01/22/2022 11:07 AM Patient Location: ??Post-op Reason for Block: at surgeon's request and post-op pain management ?? patient identified, IV checked, site marked, risks and benefits discussed, consent, monitors and equipment checked, pre-op evaluation and timeout performed ?? Patient Position: ??Supine Monitoring: ??Blood pressure, continuous pulse ox and ECG/EKG Prep: Chlorhexidine ?? Draping: ??Sterile technique maintained Block Type: ??Femoral at Adductor Canal Laterality: ??Right Injection Technique: ??Single-shot Technique: ultrasound guided ?? Needle Type: ??Stimuplex Needle Gauge: ??21 G Needle Length: ??4 in Needle Localization: ??Anatomical landmarks and ultrasound guidance Needle Insertion Depth: ??3 Test Dose: ??Negative Local Volume: ??30 Insertion Attempts: ??1 Injection Assessment/ Attestation: ??Incremental injection, local visualized surrounding nerve on ultrasound, negative aspiration for heme, no apparent complications, no paresthesia on injection, paresthesia absent, well tolerated and ultrasound image saved Paresthesia Pain: ??None Heart Rate Change: No ?? us Mark Mistry MD AL ANESTHESIA Final Resul t * Spinal Block (01/22/2022 9:24 AM CDT) Narrative Rachel Hernandez CRNA - 01/22/2022 9:24 AM CDT Rachel Hernandez CRNA ? 01/22/2022 ??9:33 AM Spinal Block Patient location during procedure: OR Start time: 01/22/2022 9:24 AM Reason for block: primary anesthetic Staffing Performed: WAREHOUSE OPERATOR Anesthesiologist: Mark Mistry MD Resident/WAREHOUSE OPERATOR: Rachel Hernandez CRNA Preanesthetic Checklist Completed: patient identified, IV checked, site marked, risks and benefits discussed, surgical consent, monitors and equipment checked, pre-op evaluation and timeout performed Spinal Block Patient position: sitting Prep: ChloraPrep Sterility prep: mask, hand hygiene, gloves, drape and cap Sedation level: light sedation Patient monitoring: blood pressure, continuous pulse oximetry, EKG, heart rate and ETCO2 Approach: midline Location: L3-4 Injection technique: single-shot Needle Needle type: pencil-tip Needle gauge: 25 G Needle length: 10 cm Catheter type: stylet Assessment Block outcome: pain improved Number of attempts: 2 Procedure assessment: patient tolerated procedure well with no immediate complications Mark Mistry MD AL ANESTHESIA Edited Resu lt - Final documented in this encounter Visit Diagnoses Not on filedocumented in this encounter Administered Medications Inactive Administered Medications - up to 3 most recent administrations Medication Order MAR Action Action Date Dose Rate Site BUpivacaine 0.75% in dextrose 8.25% (intrathecal) (SENSORCAINE) 0.75-8.25 % injection Intrathecal, PRN, Starting on Sat01/22/22 at 0924, Until Sat01/22/22 at 1047, Anesthesia Intra-Op Given 01/22/2022 9:24 AM CDT 1.6 mLs BUpivacaine-EPINEPHrine PF 0.5% -[id number] injection Regional, PRN, Starting on Sat01/22/22 at 1106, Until Sat01/22/22 at 1118, Anesthesia Intra-Op Given 01/22/2022 11:06 AM CDT 30 mLs ceFAZolin (ANCEF) 2 g in SW 20 mL IV syringe 2 g, Intravenous, at 240 mL/hr, scalloper, 1 dose, On Sat01/22/22 at 0745, Pre-Op Given 01/22/2022 9:44 AM CDT 2 g glycopyrrolate (ROBINUL) injection Intravenous, PRN, Starting on Sat01/22/22 at 0946, Until Sat01/22/22 at 1047, Anesthesia Intra-Op Given 01/22/2022 9:46 AM CDT 0.2 mg lactated ringers infusion at 10 mL/hr, Intravenous, Continuous, Starting on Sat01/22/22 at 0745, Until Sat01/22/22 at 1857 New Bag 01/22/2022 10:20 AM CDT Continued by Anesthesia 01/22/2022 9:17 AM CDT 10 mL/hr New Bag 01/22/2022 8:06 AM CDT 10 mL/hr midazolam (VERSED) injection Intravenous, PRN, Starting on Sat01/22/22 at 0915, Until Sat01/22/22 at 1047, Anesthesia Intra-Op Given 01/22/2022 9:15 AM CDT 2 mg phenylephrine (FRANSISCO-SYNEPHRINE) injection Intravenous, PRN, Starting on Sat01/22/22 at 0948, Until Sat01/22/22 at 1047, Anesthesia Intra-Op Given 01/22/2022 9:48 AM CDT 100 mcg propofol (DIPRIVAN) IV bolus Intravenous, PRN, Starting on Sat01/22/22 at 0925, Until Sat01/22/22 at 1047, Anesthesia Intra-Op Given 01/22/2022 9:49 AM CDT 50 mg Given 01/22/2022 9:30 AM CDT 50 mg Given 01/22/2022 9:25 AM CDT 70 mg propofol (DIPRIVAN) IV bolus Intravenous, Continuous PRN, Starting on Sat01/22/22 at 0925, Until Sat01/22/22 at 1047, Anesthesia Intra-Op Rate/Dose Change 01/22/2022 10:21 AM CDT 50 mcg/kg/min 22.32 mL/hr Rate/Dose Change 01/22/2022 10:09 AM CDT 100 mcg/kg/min 44 .64 mL/hr Rate/Dose Change 01/22/2022 9:49 AM CDT 120 mcg/kg/min 53. 568 mL/hr tranexamic acid (CYKLOKAPRON) injection Intravenous, PRN, Starting on Sat01/22/22 at 0938, Until Sat01/22/22 at 1047, Anesthesia Intra-Op Given 01/22/2022 9:38 AM CDT 1,000 mg documented in this encounter Care Teams Fish Salter Relationship Specialty Start Date End Date René Smallwood MD PCP - General FAMILY PRACTICE 02/23/19 documented as of this encounter
--- OUTSIDE RECORDS SUMMARY | 2024-05-11 17:29 | XMS_ITS | Referral Summary ---
Author Organization [facility] Address [address] [place] [address] Care Team Providers Care Slot Ambassador Name Role Phone Unavailable Primary Care Provider Unavailabl e Source Comments [facility],non-owned Affiliates and Associated Physician Practices is amultiple site organization consisting of ambulatory clinics and hospital sitesin [place], [place], [place] and [place]. This disclosure is being madepursuant to the Care Everywhere program and may not contain all information available regarding this patient. Last updated 18.[facility] Allergies Active Allergy Reactions Criticality Noted Date Comments Naproxen Nausea and/or Vomiting Low 11/03/2012 Social History Tobacco Use Types Packs/Day Years [...] 02/19/2023 11:30 AM CDT Plan of Treatment Not on file
--- OUTSIDE RECORDS SUMMARY | 2024-05-11 17:30 | XMS_ITS | Encounter Summary ---
Author Organization [facility] Address [address] [place] [address]. [place], [place] [address] [place] [address] Care Team Providers Care Grinder Machine Setter Name Role Phone René Smallwood MD Primary Care Provider +1- [phone] Reason for Visit * Reason Onset Date Comments Follow Up Call 03/25/2019 received records Encounter Details Date Type Department Care Team (Late st Contact Info) Description 03/25/2019 Telephone [facility] Multispecialty Care - [facility] [address], [address] [place] [address] Logan Morales MD Follow Up Call (received records) Social History Tobacco Use Types Packs/Day Years Used Date Smoking Tobacco: Former Smokeless Tobacco: Never Comments Unknown Sex and Gender Information Value Date Recorded Sex Assigned at Not on file Legal Sex Female 4:38 PM CDT Gender Identity Not on file Sexual Orientation Not on file documented as of this encounter Progress Notes * Suha Schneider MA - 03/25/2019 1:25 PM CDT I called Marnie and her daughters numbers back and was not able to leave a message on either phone. If she calls back tell her that it takes time to get records requested from [facility]. We will hopefully have them by the patients next scheduled appointment on 04/20. * Sharron Mcintyre - 03/25/2019 11:57 AM CDT Lala, pt's daughter, called asking if we got records from Dr. Ba's office that were in regardsto what kind of injections she got by Dr. Chávez and also [facility] She asked if we could please give her a call to let her know that the records have been sent. documented in this encounter Plan of Treatment Not on file documented as of this encounter Visit Diagnoses Not on filedocumented in this encounter Care Teams Grinder Machine Setter Relationship Specialty Start Date End Date René Smallwood MD PCP - General FAMILY PRACTICE 02/23/19 documented as of this encounter
--- OUTSIDE RECORDS SUMMARY | 2024-05-11 17:30 | XMS_ITS | Encounter Summary ---
Author Organization [facility] Address [address] [place] [address]. [place], [place] [address] [place] [address] Care Team Providers Care Silver Designer Name Role Phone René Smallwood MD Primary Care Provider +1- [phone] Reason for Referral * Consultation/Treatment (Routine) - Closed Specialty Diagnoses / Procedures Referred By Contac t Referred To Contact PAIN MANAGEMENT / [facility] Pain Management Diagnoses Pain of left lower extremity Logan Morales MD Naseer, Kristina, MD [facility] [address] [place] [address] Phone: tel: fax: Referral ID Status Reason Start Date Expiration Date V isits Requested Visits Authorized [id number] Closed Specialty Services 05/13/2019 05/13/2020 12 12 ORK CONTROL OPERATORS SUPERVISOR Reason for Visit * Reason Comments Follow Up * Consultation/Treatment (Routine) - Closed Specialty Diagnoses / Procedures Referred By Contac t Referred To Contact Diagnoses Radiculopathy, lumbar region René Smallwood MD Phone: tel: fax: Logan Morales MD Referral ID Status Reason Start Date Expiration Date Visits Re quested Visits Authorized [id number] Closed 02/25/2019 02/25/2020 12 12 Encounter Details Date Type Department Care Team (Late st Contact Info) Description 04/20/2019 9:00 AM NETWORK CONTROL OPERATORS SUPERVISOR Office Visit [facility] Medical Group Multispecialty Care - [facility] [address], [address] [place] [address] Logan Morales MD Follow Up [...] Sign Reading Time Taken Comments Blood Pressure 124/76 04/20/2019 9:19 AM NETWORK CONTROL OPERATORS SUPERVISOR Pulse 92 04/20/2019 9:19 AM NETWORK CONTROL OPERATORS SUPERVISOR Temperature - - Respiratory Rate - - Oxygen Saturation - - Inhaled Oxygen Concentration - - Weight 94.3 kg (208 lb) 04/20/2019 9:19 AM NETWORK CONTROL OPERATORS SUPERVISOR Height 154.9 cm (5' 1 ) 04/20/2019 9:19 AM NETWORK CONTROL OPERATORS SUPERVISOR Body Mass Index 39.3 04/20/2019 9:19 AM NETWORK CONTROL OPERATORS SUPERVISOR documented in this encounter Progress Notes * Vonda Salcido RN - 04/20/2019 9:00 AM CST [facility] Clinic Primary Dr Smallwood Here for review of injection and NCV/EMG results Continues to have the same pain--no change--no better, no worse. ORK CONTROL OPERATORS SUPERVISOR * Logan Morales MD - 04/20/2019 9:00 AM CST Images from the original note [...] mouth 2 (two) times daily. Filed Vitals: 04/20/19918 BP: 124/76 Pulse: 92 Weight: 94.3 kg (208 lb) Height: 5' 1 (1.549 m) LABS No [...] input(s): PT ENCOUNTER DIAGNOSES SNOMED CT(R) 1. Pain of left lower extremity PAIN IN LEFT LOWER LIMB HPI / NEURO EXAM / IMAGING/DIAGNOSTICS / DISCUSSION/PLAN Attending: Dr. Morales Patient continues to have left greater than right leg pain. Pain begins in her knees and radiates distally. I am convinced that this is somehow related to her total knee replacement surgeries. EMG/NCS 12/24/2018 normal. Has undergone left L5-S1 transforaminal block in the past. No impact on pain. Minimal left L4-5 disc bulge otherwise MRI lumbar spine unremarkable. Recommended left L4-5 transforaminal block. Likely low yield. We will likely released from my care if no significant impact on her symptoms. Simultaneous orthopedic referral to evaluate her knee joints. Follow-up in 6 weeks. LOGAN MORALES MD 04/20/2019 ORK CONTROL OPERATORS SUPERVISOR documented in this encounter Plan of Treatment Scheduled Referrals Name Type Priority Associated Diagnoses Orde r Schedule Ambulatory Referral to Pain Referral Routine Pain of left lower extremity Ordered: 04/20/2019 documented as of this encounter Visit Diagnoses Diagnosis Pain of left lower extremity- Primary documented in this encounter Care Teams Silver Designer Relationship Specialty Start Date End Date René Smallwood MD PCP - General FAMILY PRACTICE 02/23/19 documented as of this encounter
--- OUTSIDE RECORDS SUMMARY | 2024-05-11 17:30 | XMS_ITS | Encounter Summary ---
Author Organization [facility] Address [address] [place] [address]. [place], [place] [id number] [place] [address] Care Team Providers Care Second Time Worker Name Role Phone René Smallwood MD Primary Care Provider +1- [phone] Reason for Visit * Reason Comments New Patient * Consultation/Treatment (Routine) - Closed Specialty Diagnoses / Procedures Referred By Liz falcon Referred To Contact Diagnoses Radiculopathy, lumbar region René Smallwood MD Phone: tel: fax: Logan Morales MD Referral ID Status Reason Start Date Expiration Date Visits Re quested Visits Authorized [id number] Closed 02/25/2019 02/25/2020 12 12 Encounter Details Date Type Department Care Team (Late st Contact Info) Description 03/23/2019 3:00 PM CDT Office Visit [facility] Multispecialty [facility] - [address], [address] [place] [address] Logan Morales MD New Patient Social History Tobacco Use Types Packs/Day Years Used Date Smoking Tobacco: Former Smokeless Tobacco: Never Comments Unknown Sex and Gender Information Value Date Recorded Sex Assigned at Not on file Legal Sex Female 4:38 PM CDT Gender Identity Not on file Sexual Orientation Not on file documented as of this encounter Last Filed Vital Signs Vital Sign Reading Time Taken Comments Blood Pressure 104/70 03/23/2019 3:21 PM CDT Pulse 97 03/23/2019 3:21 PM CDT Temperature - - Respiratory Rate - - Oxygen Saturation - - Inhaled Oxygen Concentration - - Weight 80.7 kg (178 lb) 03/23/2019 3:21 PM CDT Height 154.9 cm (5' 1 ) 03/23/2019 3:21 PM CDT Body Mass Index 33.63 03/23/2019 3:21 PM CDT documented in this encounter Progress Notes * Vonda Salcido RN - 03/23/2019 3:00 PM CDT [facility] Primary Dr Smallwood 53 y/o male Occupation: Disability due to ortho Right Handed Former Smoker Co-morbidities: None Meds: occasional OTC but more for headaches Pain after multiple orthopedic surgeries, she has had continuing pain in her legs. Pain has been excruciating since October 2017 and pain has not gotten any better. Pain in lower back at waistline into buttock down the left leg laterally to knee, occasionally to calf. At times has pain in right leg in same distribution as left leg More left leg than right leg 80% leg, 20% back Standing worsens the pain Lying down for a half hour pain eases up Weakness in legs, has to use crutches, she is not able to ambulate with assistive devices EMG/NCV on left leg which were normal PT--for legs not specifically the low back PM--in [facility] one round of injection--possibly an epidural---did not help MRI on PACS #3 * Logan Morales MD - 03/23/2019 3:00 PM CDT Images from the original note were not included. Neurosurgery New Patient Office Visit Note History of Present Illness Thank you for allowing us to evaluate this 53-year-old female in neurosurgical referral. . Patient is being evaluated for bilateral knee/leg pain, review of imaging. Patient is a very nice 53-year-old lady with a very complicated orthopedic history. On disability for orthopedic issues. Apparently 10/2017 developed bilateral knee pain. The pain that she is currently seeing me for has remained unremitting and unresponsive to all of her orthopedic procedures. Bilateral knee arthroscopy. Bilateral partial knee replacement. Bilateral total knee replacement. Withinmonths those fell apart and ultimately went to [facility] for bilateral total knee revision. Despite all of these knee surgeries continues to have severe bilateral knee pain left greater than right. Left leg radiates from the knee proximally along the lateral aspect of her thigh to mid thigh level. Reportedly EMG/nerve conduction study normal. Multiple rounds of PT. Medical management Neurontin, Mobic, topical compounds applied to both knees. More recently spinal injection target unknown. This did nothelp. Her orthopedic surgeon at [facility] told her this pain must be coming from her spine. Referred for e valuation. Of note has ambulated on crutches for nearly 1.5 years. Has to use a wheelchair. Minor spinal pain. No orders of the defined types were placed in this encounter. No past medical history on file. No past surgical history on file. Social History Tobacco Use ??? Smoking status: Former Smoker ??? Smokeless tobacco: Never Used Substance Use Topics ??? Alcohol use: Not on file ??? Drug use: Not on file No family history on file. No Known Allergies Current Outpatient Medications Medication Sig ??? diazepam 5 MG tablet Take 5 mg by mouth. ??? Levothyroxine Sodium 112 MCG Cap Take 112 mcg by mouth daily. ??? topiramate 25 MG tablet Take 50 mg by mouth 2 (two) times daily. PHYSICAL EXAM Filed Vitals: 03/23/19 1521 BP: 104/70 Pulse: 97 Weight: 80.7 kg (178 lb) Height: 5' 1 (1.549 m) NEUROLOGIC EXAM Tearful throughout interview. Her daughter who is an MA did most of the talking Alert and oriented x3, Odilia Coma Scale 15, speech fluent Motor examination excellent strength lower extremities Lumbar spine mild-moderate bilateral SI tenderness, straight leg raising negative Bilateral knee exam exquisite focal tenderness along the lateral aspect of her knee joint which reproduces her pain LABS No results for input(s): WBC, RBC, HGB, [...] the last 168 hours. Invalid input(s): PT IMAGING/DIAGNOSTICS MRI lumbar spine 01/16/2019 personally reviewed. Unremarkable. Nice lumbar lordosis. Tall disc spaces. No spondylolisthesis. No fracture. Minimal left L4- 5 paracentral bulge. Foramen wide open. ENCOUNTER DIAGNOSES SNOMED CT(R) 1. Chronic pain of both knees KNEE PAIN SUMMARY/DISCUSSION/PLAN Patient is a 53-year-old lady with chronic bilateral knee pain despite multiple orthopedic surgeries and total knee replacements and revisions. Pain remains and is unremitting and unchanged since presentation. Orthopedic surgeons at [facility] based on current imaging feel they are satisfied with the status of her arthroplasty. I am very struck by the fact that her pain begins in the knees. She has point tenderness lateral aspect of her knees which localizes to the knee not the spine. Nerve conductionstudy normal. Will confirm when obtain report. MRI lumbar spine unremarkable. We will also obtain report to see what level pain clinic targeted. Consideration will be given to a left L4-5 transforaminal block. Would likely benefit from orthopedic referral at a different facility. I will ask our [facility] orthopedic surgeons to review the case. This is beyond my area of expertise. Thank you for allowing me to participate in her care. Thank you for allowing me to participate in this patient's care. LOGAN MORALES MD 03/23/2019 Addendum: EMG/NCS 12/24/2018 performed at [facility] concludes largely normal study of left lower extremity, specifically providing no clear electrodiagnostic evidence for polyneuropathy or mononeuropathy. Left L5-S1 transforaminal injection 02/26/2019 [facility] EDICAL TECHNICIAN documented in this encounter Plan of Treatment Not on file documented as of this encounter Visit Diagnoses Diagnosis Chronic pain of both knees- Primary documented in this encounter Care Teams Second Time Worker Relationship Specialty Start Date End Date René Smallwood MD PCP - General FAMILY PRACTICE 02/23/19 documented as of this encounter
--- OUTSIDE RECORDS SUMMARY | 2024-05-11 17:30 | XMS_ITS | Encounter Summary ---
Author Organization [facility] Address [address] [place] [address]. [place], [place] [id number] [place] [address] Care Team Providers Care Assistant Prosecuting Attorney Name Role Phone René Smallwood MD Primary Care Provider [phone]- [phone] Reason for Visit * Auth/Cert Specialty Diagnoses / Procedures Referred By Liz t Referred To Contact Diagnoses Pain of left lower extremity Pain of left lower extremity [M79.605] Procedures INJECTION EPIDURAL TRANSFORAMINAL L4-5 Referral ID Status Reason Start Date Expiration Date Visits Re quested Visits Authorized [id number] 1 1 Encounter Details Date Type Department Care Team (Latest Contact Info) Description 05/18/2019 10:43 AM [facility] - 05/18/2019 11:43 AM [facility] Hospital Encounter [facility] [place] [address] [id number] Karina Christiansen MD [facility] [address] [place] [address] Discharge Disposition: Home or Self Care (Routine [...] Sign Reading Time Taken Comments Blood Pressure 125/77 05/18/2019 11:37 AM [facility] Pulse 79 05/18/2019 11:31 AM [facility] Temperature 36.7 ??C (98 ??F) 05/18/2019 11:01 AM [facility] Respiratory Rate 18 05/18/2019 11:31 AM [facility] Oxygen Saturation 95% 05/18/2019 11:31 AM [facility] Inhaled Oxygen Concentration - - Weight - - Height - - Body Mass Index - - documented in this encounter Discharge Instructions * Discharge Instructions* Cuca Godfrey RN - 05/18/2019 11:38 AM [facility] [place] Interventional Pain Management Discharge Instructions Follow up with Dr. Morales WHAT TO DO TODAY: - Limit your [...] DOCTOR AND HOW TO REACH US: Call [phone] for scheduling, insurance questions or speak with a nurse. Our hours are Saturday- 8:00am-4:00pm ??? Call the number above for any bleeding/drainage/redness/swelling at the injection site, severe pain, persistent chills, fever over 101 or greater, or new or different pain or numbness or any change in ability to use the bathroom. If you are unable to reach us call 911 or go to the nearest emergency room. ??? If you have shortness of breath, fast heart rate, throat/tongue swelling call 911 or go to the nearest emergency room. [facility] documented in this encounter Medications at Time of Discharge diazepam 5 MG tablet Take 5 mg by mouth. 12/16/2017 topiramate 50 MG Tab Take 50 mg by mouth 2 (two) times daily. 3 04/01/2019 Levothyroxine Sodium 112 MCG Cap Take 112 mcg by mouth daily. 12/30/2017 01/22/2022 documented as of this encounter H&P Notes * Karina Christiansen MD - 05/18/2019 11:22 AM CST Admission Note With PreProc Assess CC: Low back bilateral pain HPI: 53-year-old female seen today as a new patient patient was referred by office of Dr. Logan Morales for ongoing bilateral knee pain after 7 lumbar surgeries. Patient has been on crutches for 18months she reports difficulty ambulating secondary to pain and pain gets worse every day. Patient has had injections in the past with no relief. Her pain is been present since approximate 2010 she isunsure of the cause of the pain gradual onset of pain in her knees worse pain is a 10 out of 10 average pain is a 9 out of 10. Pain is a shooting sharp throbbing aching pain. Pain is severe constant getting worse time was on associate with weakness. Patient denies bladder or bowel dysfunction. Things make pain worse are standing, exercise take stairs driving touching movement seen as standing walking stress fatigue. Factors at relieve pain are none previous treatments include physical therapy occupational therapy epidurals cold therapy heat and surgery her last therapy was November 2018. She reports no current medication use for the pain. MRI lumbar spine reviewed Prior to Admission medications Medication Sig Start [...] file Gets together: Not on file Attends buddhist service: Not on file Active member of [...] ??? Not on file Review of Systems: 12 point review of system reviewed is negative other than weight changes disturbs to be habits depression mood swings anxiety. Patient denies bladder bowel dysfunction. PHYSICAL EXAM Filed Vitals: 05/18/19 1101 BP: 132/77 Pulse: 80 Resp: 20 Temp: 98 ??F (36.7 ??C) TempSrc: Oral SpO2: 98% General: alert, appears stated age and cooperative Skin: normal and no rash or abnormalities HEENT: neck supple with midline trachea Lungs: no respiratory distress Heart: regular rate and rhythm Abdomen: soft Neuro: Patient has difficulty going from the sitting to standing position. Patient ambulates with the assistance of a crutch. Reflexes 1+ patella and Achilles equal bilaterally sensation is intact strength testing is diminished but equal bilaterally ASSESSMENT Lumbar radiculopathy PLAN 53-year-old female seen as a new patient. Patient was referred by office of Dr. Logan Morales fora lumbar epidural injection entering via a transforaminal route at the level of L4-5. Risks, benefits, alternatives were discussed. Patient agreeable plan. Risks including, but not limited to infection, permanent neurological deficit due to nerve root injury, bleeding, anaphylaxis, flushing, cerebral spinal fluid leak, paralysis, spinal cord injury, thinning of the skin, thinning of the bones, muscle cramping. [employer] documented in this encounter OR Notes * Op Note - Karina Christiansen MD - 05/18/2019 11:32 AM CST PROCEDURE: LUMBAR TRANSFORAMINAL EPIDURAL STEROID INJECTION UNDER FLUOROSCOPY LEVELS: Left L4-5 and L5-S1 PREOPERATIVE DIAGNOSIS: LUMBAR RADICULOPATHY [...] OBLIQUE X RAY VIEW. TARGET FOR L 4-5 L5-S1 NERVE ROOT IS THE 6 O???CLOCK POSITION OF THE PEDICLE SHADOW IN THE OBLIQUE X RAY VIEW AT THE LEVEL OF L 4-5 L5-S1 ON THE Left SIDE. APPROPRIATE NEEDLE TIP POSITION WAS CONFIRMED [...] OVER THE NEXT FEW DAYS FOR FOLLOWUP. [employer] documented in this encounter Plan of Treatment Not on file documented as of this encounter Procedures Procedure Name Priority Date/Time Associated Diagnosis Comments INJECTION EPIDURAL TRANSFORAMINAL 05/18/2019 11:20 AM [facility] Pain of left lower extremity XR PAIN CLINIC C-ARM Today 05/18/2019 10:46 AM [facility] documented in this encounter Results * XR PAIN CLINIC C-ARM (05/18/2019 10:46 AM [facility]) Narrative Radiology, Technologist - 05/18/2019 10:46 AM [facility] This report does not contain a radiologist's interpretation. Please review associated procedure and/or operative report. Karina Christiansen MD GENERAL IMAGING Final Result documented in this encounter Visit Diagnoses Not on filedocumented in this encounter Administered Medications Inactive Administered Medications - up to 3 most recent administrations Medication Order MAR Action Action Date Dose Rate Site diazepam (VALIUM) tablet 10 mg 10 mg, Oral, Once as needed, Anxiety, 1 dose, Starting on Sat05/18/19 at 1111, Until Sat05/18/19 at 1113, Pre-Op Given 05/18/2019 11:13 AM [facility] 10 mg documented in this encounter Active and Recently Administered Medications Times are shown in [facility]. PRN Medication Order 05/16/2019 05/17/2019 05/18/2019 BUpivacaine (MARCAINE) 0.25 % injection (CANCELED) As needed, Starting on Sat05/18/19 at 1108, Until Sat05/18/19 at 1132, Intra-Op 1130 (Given - Provid er: Karina Christiansen MD) diazepam (VALIUM) tablet 10 mg (COMPLETED) 10 mg, Oral, Once as needed, Anxiety, 1 dose, Starting on Sat05/18/19 at 1111, Until 05/18/19 at 1113, Pre-Op 1113 (Given - Provid er: Cuca Godfrey RN) lidocaine (PF) (XYLOCAINE) 1 % injection (CANCELED) As needed, Starting on Sat05/18/19 at 1108, Until Sat05/18/19 at 1132, Intra-Op 1127 (Given - Provid er: Karina Christiansen MD) methylPREDNISolone acetate (DEPO-MEDROL) injection (CANCELED) As needed, Starting on Sat05/18/19 at 1108, Until Sat05/18/19 at 1132, Intra-Op 1130 (Given - Provid er: Karina Christiansen MD) documented in this encounter Care Teams Assistant Prosecuting Attorney Relationship Specialty Start Date End Date René Smallwood MD PCP - General FAMILY PRACTICE 02/23/19 documented as of this encounter
--- OUTSIDE RECORDS SUMMARY | 2024-05-11 17:30 | XMS_ITS | Encounter Summary ---
Author Organization [facility] Address [address] [place] [address]. [address] [address] Care Team Providers Care Bottom Bleacher Name Role Phone René Smallwood MD Primary Care Provider +1- [phone] Encounter Details Date Type Department Care Team (Latest Contact Info) Description 12/24/2018 Scan HEALTH INFO [facility] Scanned, Documents Social History Tobacco Use Types Packs/Day Years Used Date Smoking Tobacco: Never Assessed Comments Unknown Sex and Gender Information Value Date Recorded Sex Assigned at Not on file Legal Sex Female 4:38 PM CDT Gender Identity Not on file Sexual Orientation Not on file documented as of this encounter Plan of Treatment Not on file documented as of this encounter Visit Diagnoses Not on filedocumented in this encounter Care Teams Bottom Bleacher Relationship Specialty Start Date End Date René Smallwood MD PCP - General FAMILY PRACTICE 02/23/19 documented as of this encounter
--- OUTSIDE RECORDS SUMMARY | 2024-05-11 17:30 | XMS_ITS | Encounter Summary ---
Author Organization [facility] Address [address] [place] [address]. [address] [address] Care Team Providers Care Title I Director Name Role Phone René Smallwood MD Primary Care Provider +1- [phone] Encounter Details Date Type Department Care Team (Latest Contact Info) Description 03/23/2019 Scan HEALTH INFO [facility]CS Scanned, Documents Social [...] on filedocumented in this encounter Care Teams Title I Director Relationship Specialty Start Date End Date René Smallwood MD PCP - General FAMILY PRACTICE 02/23/19 documented as of this encounter
--- OUTSIDE RECORDS SUMMARY | 2024-05-11 17:30 | XMS_ITS | Encounter Summary ---
Author Organization [facility] Address [address] [place] [address]. [place], [place] [address] [place] [address] Care Team Providers Care Financing Analyst Name Role Phone René Smallwood MD Primary Care Provider +1- [phone] Reason for Visit * Reason Comments New Patient * Consultation/Treatment (Routine) - Closed Specialty Diagnoses / Procedures Referred By Liz falcon Referred To Contact NURSE PRACTITIONER / ORTHOPAEDICS Diagnoses BILATERAL KNEE PAIN Procedures NEW PATIENT René Smallwood MD Phone: tel: fax: Rama Gibbs NP-C Referral ID Status Reason Start Date Expiration Date Visits Re quested Visits Authorized [id number] Closed 05/14/2019 05/26/2019 12 12 Encounter Details Date Type Department Care Team (Late st Contact Info) Description 05/15/2019 11:20 AM PHYSICIAN PRACTICE MARKET MANAGER Office Visit [facility] Multispecialty Care - [address], [address] [place] [phone] Rama Gibbs NP-C New Patient Social History Tobacco Use Types [...] Sign Reading Time Taken Comments Blood Pressure 124/72 05/15/2019 10:18 AM PHYSICIAN PRACTICE MARKET MANAGER Pulse 82 05/15/2019 10:18 AM PHYSICIAN PRACTICE MARKET MANAGER Temperature - - Respiratory Rate - - Oxygen Saturation - - Inhaled Oxygen Concentration - - Weight 93.9 kg (207 lb) 05/15/2019 10:18 AM PHYSICIAN PRACTICE MARKET MANAGER Height 154.9 cm (5' 1 ) 05/15/2019 10:18 AM PHYSICIAN PRACTICE MARKET MANAGER Body Mass Index 39.11 05/15/2019 10:18 AM PHYSICIAN PRACTICE MARKET MANAGER documented in this encounter Progress Notes * LEYLA Heredia - 05/15/2019 11:20 AM CST Images from the original note were not included. Office Progress Note Reason for Visit: New Patient History of Present Illness: Patient is a 53-year-old with a longstanding history of a bilateral knee surgeries. She reports to me she had left and right knee replacement in [address] Syed at [facility]. She then had revision of left knee in [address] Ba along with right knee revision 2015 [address] Ba at [facility]. Patient states she still has anterior chronic knee pain. She has been ambulating with crutches for the past year and a half. Patient is in the a wheelchair in the exam room. Patient states that she no longer is getting pain pills prescribed and is in significant pain. Patient tearful in exam room. Patient was seen by Dr. Morales with neurosurgery who recommended evaluation with orthopedics. She did have an EMG study was normal. She tells me she is having injections L4-[address] Christiansen next week. ROS: Review of Systems Constitutional: Negative for chills and fever. HENT: Negative. Cardiovascular: Negative for chest pain. Musculoskeletal: Positive for joint pain. Skin: Negative. Neurological: Positive for weakness. Psychiatric/Behavioral: Positive for depression. The patient is nervous/anxious. Medications: Outpatient Medications Marked as Taking for the 05/15/19 encounter (Office Visit) with LEYLA Heredia Medication Sig Dispense Refill ??? diazepam 5 MG tablet Take 5 mg by mouth. ??? Levothyroxine Sodium 112 MCG Cap Take 112 mcg by mouth daily. ??? topiramate 50 MG Tab Take 50 mg by mouth 2 (two) times daily. 3 Allergies: No Known Allergies Medical History: History reviewed. No pertinent past medical history. Surgical History: History reviewed. No pertinent surgical history. Social History: Social History Socioeconomic History ??? Marital status: [...] file Gets together: Not on file Attends jehovah's witness service: Not on file Active member of [...] Social History Narrative ??? Not on file Family History: No family history on file. VITALS: Filed Vitals: 05/15/19 1018 BP: 124/72 Pulse: 82 Weight: 93.9 kg (207 lb) Height: 5' 1 (1.549 m) Physical Exam: Physical Exam Constitutional: She is oriented to person, place, and time and well-developed, well-nourished, and in no distress. No distress. HENT: Head: Normocephalic and atraumatic. Eyes: EOM are normal. Pupils are equal, round, and reactive to light. Neck: Normal range of motion. Neck supple. Cardiovascular: Intact distal pulses. Pulmonary/Chest: Effort normal. Musculoskeletal: She exhibits tenderness (diffuse knee). She exhibits no edema or deformity. Neurological: She is alert and oriented to person, place, and time. Skin: Skin is warm and dry. She is not diaphoretic. No erythema. Psychiatric: Affect and judgment normal. Vitals reviewed. Imaging: Reviewed most recent image study. Technique: 3 views of the left knee and 3 views of the right knee were obtained. ?? Findings: Bilateral total knee arthroplasties are noted with longstem femoral and tibial componentsbilaterally. ??No periprosthetic lucencies in either knee. ??No acute fracture or dislocation on either side. ??No destructive osseous lesions. ??Hardware appears intact. ??No significant joint effusion on either side. ??No unexpected radiopaque foreign bodies. ?? ===== IMPRESSION:===== 1. 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 Chronic pain of both knees XR KNEE RT 3V XR KNEE LT 3V 2. S/P revision of total knee, bilateral Recommendations and Plan: Discussed with patient that since she is established with Dr. Ba who has done her revisions that she needs to follow-up with him. Her last appointment was October 2018. Patient is established with orthopedics at [facility] and needs to continue care there. Do not currently see any lucency or problemswith her x-ray images. LEYLA HEREDIA 05/22/2019 ICIAN PRACTICE MARKET MANAGER documented in this encounter Plan of Treatment Not on file documented as of this encounter Procedures Procedure Name Priority Date/Time Associated Diagnosis Comments XR KNEE LT 3V Routine 05/15/2019 12:00 PM PHYSICIAN PRACTICE MARKET MANAGER Chronic pain of both knees XR KNEE RT 3V Routine 05/15/2019 12:00 PM PHYSICIAN PRACTICE MARKET MANAGER Chronic pain of both knees documented in this encounter Results * XR KNEE LT 3V (05/15/2019 12:00 PM PHYSICIAN PRACTICE MARKET MANAGER) Anatomical Region Laterality Modality Knee Radiographic Mirtha ging 05/15/2019 Narrative 05/17/2019 8:32 AM PHYSICIAN PRACTICE MARKET MANAGER Examination: Left knee 3 views, right knee 3 views [id number] Exam Date/Time: 05/15/2019 12:00 AM Reason For Exam: ??pain ?? Bilateral knee pain with no known injury. ??History of bilateral knee revisions. Comparison: None Technique: 3 views of the left knee and 3 views of the right knee were obtained. Findings: Bilateral total knee arthroplasties are noted with longstem femoral and tibial components bilaterally. ??No periprosthetic lucencies in either knee. ??No acute fracture or dislocation on either side. ??No destructive osseous lesions. ??Hardware appears intact. ??No significant joint effusion on either side. ??No unexpected radiopaque foreign bodies. ===== IMPRESSION:===== 1. ??Bilateral total knee arthroplasties with no acute hardware or osseous abnormalities Interpreted By: Jerrell Strickland MD, 05/17/2019 8:29 AM Procedure Note Jerrell Strickland MD - 05/17/2019 Examination: Left knee 3 views, right knee 3 views [id number] Exam Date/Time: 05/15/2019 12:00 AM Reason For Exam: pain Bilateral knee pain with no known injury. History of bilateral kneerevisions. Comparison: None Technique: 3 views of the left knee and 3 views of the right knee wereobtained. Findings: Bilateral total knee arthroplasties are noted with longstemfemoral and tibial components bilaterally. No periprosthetic lucencies ineither knee. No acute fracture or dislocation on either side. Nodestructive osseous lesions. Hardware appears intact. No significantjoint effusion on either side. No unexpected radiopaque foreign bodies. ===== IMPRESSION:===== 1. Bilateral total knee arthroplasties with no acute hardware or osseousabnormalities Interpreted By: Jerrell Strickland MD, 05/17/2019 8:29 AM us Rama Gibbs PRORATE CLERK-C GENERAL IMAGING Final Re sult * XR KNEE RT 3V (05/15/2019 12:00 PM PHYSICIAN PRACTICE MARKET MANAGER) Anatomical Region Laterality Modality Knee Radiographic Mirtha ging 05/15/2019 Narrative 05/17/2019 8:32 AM PHYSICIAN PRACTICE MARKET MANAGER Examination: Left knee 3 views, right knee 3 views [id number] Exam Date/Time: 05/15/2019 12:00 AM Reason For Exam: ??pain ?? Bilateral knee pain with no known injury. ??History of bilateral knee revisions. Comparison: None Technique: 3 views of the left knee and 3 views of the right knee were obtained. Findings: Bilateral total knee arthroplasties are noted with longstem femoral and tibial components bilaterally. ??No periprosthetic lucencies in either knee. ??No acute fracture or dislocation on either side. ??No destructive osseous lesions. ??Hardware appears intact. ??No significant joint effusion on either side. ??No unexpected radiopaque foreign bodies. ===== IMPRESSION:===== 1. ??Bilateral total knee arthroplasties with no acute hardware or osseous abnormalities Interpreted By: Jerrell Strickland MD, 05/17/2019 8:29 AM Procedure Note Jerrell Strickland MD - 05/17/2019 Examination: Left knee 3 views, right knee 3 views [id number] Exam Date/Time: 05/15/2019 12:00 AM Reason For Exam: pain Bilateral knee pain with no known injury. History of bilateral kneerevisions. Comparison: None Technique: 3 views of the left knee and 3 views of the right knee wereobtained. Findings: Bilateral total knee arthroplasties are noted with longstemfemoral and tibial components bilaterally. No periprosthetic lucencies ineither knee. No acute fracture or dislocation on either side. Nodestructive osseous lesions. Hardware appears intact. No significantjoint effusion on either side. No unexpected radiopaque foreign bodies. ===== IMPRESSION:===== 1. Bilateral total knee arthroplasties with no acute hardware or osseousabnormalities Interpreted By: Jerrell Strickland MD, 05/17/2019 8:29 AM us Rama Gibbs PRORATE CLERK-C GENERAL IMAGING Final Re sult documented in this encounter Visit Diagnoses Diagnosis Chronic pain of both knees- Primary S/P revision of total knee, bilateral documented in this encounter Care Teams Financing Analyst Relationship Specialty Start Date End Date René Smallwood MD PCP - General FAMILY PRACTICE 02/23/19 documented as of this encounter
--- OUTSIDE RECORDS SUMMARY | 2024-05-11 17:30 | XMS_ITS | Encounter Summary ---
Author Organization [facility] Address [address] [place] [address]. [place], [place] [address] [place] [address] Care Team Providers Care Physician Industrial Name Role Phone René Smallwood MD Primary Care Provider +1- [phone] Reason for Visit * Auth/Cert Specialty Diagnoses / Procedures Referred By Liz t Referred To Contact Diagnoses Pain of left lower extremity Pain of left lower extremity [M79.605] Procedures INJECTION EPIDURAL TRANSFORAMINAL L4-5 Referral ID Status Reason Start Date Expiration Date Visits Re quested Visits Authorized [id number] 1 1 Encounter Details Date Type Department Care Team (Late st Contact Info) Description 05/18/2019 11:40 AM TUBULAR SPLITTING MACHINE TENDER - 05/18/2019 12:00 PM TUBULAR SPLITTING MACHINE TENDER Surgery [facility] Inter[facility] [place] [address] [phone] Karina Christiansen MD [facility] [address] [place] [address] INJECTION EPIDURAL TRANSFORAMINAL L4-5, l5-s1 Surgery Details Date/Time Status Location OR Service Patient Class Case Class Case Type Trauma Case? 05/18/2019 11:40 AM Posted [facility] Proc Rm Pain Medicine Short Stay/Outpa tient Surgery No Panel 1 Procedure LRB Anes Op Region Wound Class Comments INJECTION EPIDURAL TRANSFORAMINAL L4-5, l5-s1 Left Local Spine Lumbar Clean NEW PT NO BLOOD THINNERS LEFT INJECTION EPIDURAL TRANSFORAMINAL L4-5 COVENTRY GOLD ADV REFERRED BY Therese MORALES MD 04/22/19 YASMINE GORDON Surgeon Surgeon Role Service Panel Karina Christiansen [...] Comments Blood Pressure 125/77 05/18/2019 11:37 AM TUBULAR SPLITTING MACHINE TENDER Pulse 79 05/18/2019 11:31 AM TUBULAR SPLITTING MACHINE TENDER Temperature 36.7 ??C (98 ??F) 05/18/2019 11:01 AM TUBULAR SPLITTING MACHINE TENDER Respiratory Rate 18 05/18/2019 11:31 AM TUBULAR SPLITTING MACHINE TENDER Oxygen Saturation 95% 05/18/2019 11:31 AM TUBULAR SPLITTING MACHINE TENDER Inhaled Oxygen Concentration - - Weight - - Height - - Body Mass Index - - documented in this encounter Discharge Instructions * Discharge Instructions* Cuca Godfrey RN - 05/18/2019 11:38 AM TUBULAR SPLITTING MACHINE TENDER [facility] Interventional Pain Management Discharge Instructions Follow [...] DOCTOR AND HOW TO REACH US: Call [phone] for scheduling, insurance questions or speak with [...] or go to the nearest emergency room. LAR SPLITTING MACHINE TENDER documented in this encounter Medications at Time [...] file Gets together: Not on file Attends scientologist service: Not on file Active member of [...] skin, thinning of the bones, muscle cramping. LAR SPLITTING MACHINE TENDER documented in this encounter OR Notes * [...] OVER THE NEXT FEW DAYS FOR FOLLOWUP. LAR SPLITTING MACHINE TENDER documented in this encounter Plan of Treatment Not on file documented as of this encounter Procedures Procedure Name Priority Date/Time Associated Diagnosis Comments INJECTION EPIDURAL TRANSFORAMINAL 05/18/2019 11:20 AM TUBULAR SPLITTING MACHINE TENDER Pain of left lower extremity XR PAIN CLINIC C-ARM Today 05/18/2019 10:46 AM TUBULAR SPLITTING MACHINE TENDER documented in this encounter Results * XR PAIN CLINIC C-ARM (05/18/2019 10:46 AM TUBULAR SPLITTING MACHINE TENDER) Narrative Radiology, Technologist - 05/18/2019 10:46 AM TUBULAR SPLITTING MACHINE TENDER This report does not contain a radiologist's interpretation. Please review associated procedure and/or operative report. us Karina Christiansen MD GENERAL IMAGING Final Result documented in this encounter Visit Diagnoses Diagnosis Pain of left lower extremity documented in this encounter Administered Medications Inactive Administered Medications - up to 3 most recent administrations Medication Order MAR Action Action Date Dose Rate Site BUpivacaine (MARCAINE) 0.25 % injection As needed, Starting on Sat05/18/19 at 1108, Until Sat05/18/19 at 1132, Intra-Op Given 05/18/2019 11:30 AM TUBULAR SPLITTING MACHINE TENDER 2 mLs Back diazepam (VALIUM) tablet 10 mg 10 mg, Oral, Once as needed, Anxiety, 1 dose, Starting on Sat05/18/19 at 1111, Until Sat05/18/19 at 1113, Pre-Op Given 05/18/2019 11:13 AM TUBULAR SPLITTING MACHINE TENDER 10 mg lidocaine (PF) (XYLOCAINE) 1 % injection As needed, Starting on Sat05/18/19 at 1108, Until Sat05/18/19 at 1132, Intra-Op Given 05/18/2019 11:27 AM TUBULAR SPLITTING MACHINE TENDER 3 mLs Back methylPREDNISolone acetate (DEPO-MEDROL) injection As needed, Starting on Sat05/18/19 at 1108, Until Sat05/18/19 at 1132, Intra-Op Given 05/18/2019 11:30 AM TUBULAR SPLITTING MACHINE TENDER 80 mg Back documented in this encounter Active and Recently Administered Medications Times are shown in TUBULAR SPLITTING MACHINE TENDER. PRN Medication Order 05/16/2019 05/17/2019 05/18/2019 BUpivacaine (MARCAINE) 0.25 % injection (CANCELED) As needed, Starting on Sat05/18/19 at 1108, Until Sat05/18/19 at 1132, Intra-Op 1130 (Given - Provid er: Karina Christiansen MD) diazepam (VALIUM) tablet 10 mg (COMPLETED) 10 mg, Oral, Once as needed, Anxiety, 1 dose, Starting on Sat05/18/19 at 1111, Until Sat05/18/19 at 1113, Pre-Op 1113 (Given - Provid [...] MD) documented in this encounter Care Teams Physician Industrial Relationship Specialty Start Date End Date René Smallwood MD PCP - General FAMILY PRACTICE 02/23/19 documented as of this encounter
--- OUTSIDE RECORDS SUMMARY | 2024-05-11 17:30 | XMS_ITS | Encounter Summary ---
Author Organization [facility] Address [address] [place] [address]. [place], [place] [address] [place] [address] Care Team Providers Care Red Lead Burner Name Role Phone René Smallwood MD Primary Care Provider +1- [phone] Reason for Visit * Reason Onset Date Comments Follow Up Call 04/06/2019 Encounter Details Date Type Department Care Team (Late st Contact Info) Description 04/06/2019 Telephone [facility] Medical Group Multispecialty Care - [facility] [address] [facility], [address] [place] [address] Logan Morales MD Follow Up [...] Progress Notes * Suha Schneider MA - 04/06/2019 12:32 PM CST I called Lala back and informed her that we did receive the information and it has been scanned into her chart. Understanding was verbalized. RK MACHINE OPERATOR * May Mckeon - 04/06/2019 11:27 AM CST Patients daughter called in, stated that [facility] faxed twice to us the patients records for a nerve conduction study ordered by Dr Ba to be done at [facility] and office note from Dr Chávez who is an ortho doctor at [facility]. Patients daughter does not want to get here for the 04/20 appointment and the notes not be here. Please call the patients daughter. RK MACHINE OPERATOR documented in this encounter Plan of Treatment Not on file documented as of this encounter Visit Diagnoses Not on filedocumented in this encounter Care Teams Red Lead Burner Relationship Specialty Start Date End Date René Smallwood MD PCP - General FAMILY PRACTICE 02/23/19 documented as of this encounter
--- OUTSIDE RECORDS SUMMARY | 2024-05-11 17:30 | XMS_ITS | Encounter Summary ---
Author Organization [facility] Address [address] [place] [address]. [place], [place] [address] [place] [address] Care Team Providers Care Scrap Metal Burner Name Role Phone René Smallwood MD Primary Care Provider +1- [phone] Reason for Visit * Reason Onset Date Comments Follow Up Call 03/25/2019 Encounter Details Date Type Department Care Team (Late st Contact Info) Description 03/25/2019 Telephone [facility] Medical Group Multispecialty Care - [facility] [address] [facility], [address] [place] [address] Logan Morales MD Follow Up [...] Notes * Suha Schneider MA - 03/25/2019 1:51 PM CDT Lala called back and stated that she was calling because she talked to Dr. Ba's office yesterday and they told her that they had faxed the records I told her I would go look on the fax machine up front and get back with her. I called Lala back and told her that we have not received a fax from Dr. Ba's office as of yet. Understanding was verbalized. documented in this encounter Plan of Treatment Not on file documented as of this encounter Visit Diagnoses Not on filedocumented in this encounter Care Teams Scrap Metal Burner Relationship Specialty Start Date End Date René Smallwood MD PCP - General FAMILY PRACTICE 02/23/19 documented as of this encounter
--- OUTSIDE RECORDS SUMMARY | 2024-05-11 17:30 | XMS_ITS | Encounter Summary ---
Author Organization [facility] Address [address] [place] [address]. [place], [place] [address] [place] [address] Care Team Providers Care Process Automation Engineer Name Role Phone René Smallwood MD Primary Care Provider +1- [phone] Reason for Referral * Consultation/Treatment (Routine) - Closed Specialty Diagnoses / Procedures Referred By Liz falcon Referred To Contact ORTHOPAEDICS Diagnoses Knee pain Logan Morales MD Burgess, Kimberly A, CUSTOMER RELATIONS ADVISOR-C Referral ID Status Reason Start Date Expiration Date V isits Requested Visits Authorized [id number] Closed Specialty Services 04/21/2019 05/22/2020 100 100 AND GAS SUPERINTENDENT Encounter Details Date Type Department Care Team (Late st Contact Info) Description 04/21/2019 Orders Only [facility] Medical Group Multispecialty Care - [facility] [address] [facility], [address] [place] [phone] Logan Morales MD Social History Tobacco Use Types Packs/Day Years Used Date Smoking Tobacco: Former Smokeless Tobacco: Never Comments Unknown Sex and Gender Information Value Date Recorded Sex Assigned at Not on file Legal Sex Female 4:38 PM CDT Gender Identity Not on file Sexual Orientation Not on file documented as of this encounter Plan of Treatment Scheduled Referrals Name Type Priority Associated Diagnoses Orde r Schedule Ambulatory referral to Orthopedics ( [place]) Referral Routine Knee pain Ordered: 04/21/2019 documented as of this encounter Visit Diagnoses Diagnosis Knee pain- Primary Pain in joint, lower leg documented in this encounter Care Teams Process Automation Engineer Relationship Specialty Start Date End Date René Smallwood MD PCP - General FAMILY PRACTICE 02/23/19 documented as of this encounter
--- OUTSIDE RECORDS SUMMARY | 2024-05-11 17:30 | XMS_ITS | Encounter Summary ---
Author Organization [facility] Address [address] [place] [address]. [address] [address] Care Team Providers Care Ground Support Equipment Assembler Name Role Phone René Smallwood MD Primary Care Provider +1- [phone] Encounter Details Date Type Department Care Team (Latest Contact Info) Description 05/15/2019 Scan HEALTH INFO SRV[facility] Scanned, Documents Social [...] on filedocumented in this encounter Care Teams Ground Support Equipment Assembler Relationship Specialty Start Date End Date René Smallwood MD PCP - General FAMILY PRACTICE 02/23/19 documented as of this encounter
--- OUTSIDE RECORDS SUMMARY | 2024-05-11 17:33 | XMS_ITS | Encounter Summary ---
Author Organization [facility] Address [address] [place] [address] Care Team Providers Care Terra Cotta Mold Maker Name Role Phone René Smallwood MD Primary Care Provider [phone] René Smallwood MD Unavailable [phone] Reason for Visit * Reason Comments Follow-up Encounter Details Date Type Department Care Team (Late st Contact Info) Description 02/12/2023 1:30 PM CDT Office Visit [facility] Pain Management at [address] [address] Vishal Garza THIRD HAND [id number] [place] [address] Chronic pain of both knees (Primary Dx); Chronic pain syndrome; Failure of total knee replacement, sequela; 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 Gender Identity Not on file Sexual Orientation Not on file Occupation Industry Job Start Date Job End Date unemployed/disability Not on file Not on file Not on file documented as of this encounter Last Filed Vital Signs Vital Sign Reading Time Taken Comments Blood Pressure 151/92 02/12/2023 1:34 PM CDT Pulse 77 02/12/2023 1:34 PM CDT Temperature - - Respiratory Rate - - Oxygen Saturation 98% 02/12/2023 1:34 PM CDT Inhaled Oxygen Concentration - - Weight 88.5 kg (195 lb) 02/12/2023 1:34 PM CDT Height 154.9 cm (5' 0.98 ) 02/12/2023 1:34 PM CD T Body Mass Index 36.86 02/12/2023 1:34 PM CDT documented in this encounter Ordered Prescriptions Prescription Sig Dispense Quantity Refills Last Filled Start Date End Date oxyCODONE-acetamin ophen (PERCOCET) 7.5-325 mg per tabletIndications: Pain Take 1 tablet by mouth every 6 (six) hours as needed for pain 120 tablet 03/25/2023 04/09/2023 oxyCODONE-acetamin ophen (PERCOCET) 7.5-325 mg per tabletIndications: Pain Take 1 tablet by mouth every 6 (six) hours as needed for pain 120 tablet 02/23/2023 04/09/2023 documented in this encounter Progress Notes * Vishal Garza, THIRD HAND - 02/12/2023 1:30 PM CDT Patient Name: Marnie Roque : 1965 Today's Date: 02/12/2023 PCP: René Smallwood MD Referring: René Smallwood MD Chief Complaint Patient presents with Follow-up HPI Patient returned complaints of ongoing chronic bilateral knee pain. Pain varies from stabbing to sharp and is present on a daily basis. Pain certainly affects her activities of daily living and her mobility. She is actually restricted significantly with her activities of daily living due to her pain. Currently pain rated 9 on 10 scale. In the past she is been taking Percocet 5/325 with benefit. Medication helps by approximately 50% without adverse side effects. Patient is attempting to lose weight. She is also contemplating peripheral nerve stim as an option. Allergies Allergen Reactions Naproxen Nausea And Vomiting Past Medical History: Diagnosis Date Anxiety Arthritis Depression Hyperthyroidism Hypothyroidism Migraines Obesity Past Surgical History: Procedure Laterality Date FL UPPER GI AIR CONTRAST W KUB Left 02/26/2019 LIPOSUCTION EXTREMITIES arms PERONEAL NERVE DECOMPRESSION Left 11/2019 REVISION TOTAL KNEE ARTHROPLASTY Right 02/18/2018 REVISION TOTAL KNEE ARTHROPLASTY Left TOTAL KNEE ARTHROPLASTY Left 05/2014 TOTAL KNEE ARTHROPLASTY Right 08/2015 TUBAL LIGATION WRIST FRACTURE SURGERY Social History Tobacco Use Smoking status: Former Packs/day: .25 Types: Cigarettes Start date: 05/27/1994 Quit date: 12/11/2017 Years since quittin.1 Smokeless tobacco: Never Substance and Sexual Activity Drug use: No Sexual activity: Defer Alcohol Use: Unknown (04/24/2022) AUDIT-C Frequency of Alcohol Consumption: Monthly or less Average Number of Drinks: Not on file Frequency of Binge Drinking: Not on file Family History Problem Relation Age of Onset Arthritis Other Mental illness Other Cancer Maternal Grandmother HOME MEDICATIONS : alendronate (FOSAMAX) 70 mg tablet levothyroxine sodium (TIROSINT) 112 mcg capsule oxyCODONE-acetaminophen (PERCOCET) 7.5-325 mg per tablet ALPRAZolam (XANAX) 0.25 mg tablet buprenorphine HCL (Belbuca) 150 mcg film diazePAM (VALIUM) 5 mg tablet naloxone (NARCAN) 4 mg/actuation spray,non-aerosol oxyCODONE-acetaminophen (PERCOCET) 5-325 mg per tablet oxyCODONE-acetaminophen (PERCOCET) 7.5-325 mg per tablet topiramate (TOPAMAX) 50 mg tablet Review of Systems Review of Systems Constitutional: Negative. HENT: Negative for congestion, ear pain, sinus pressure, sinus pain and sore throat. Eyes: Negative for pain and visual disturbance. Respiratory: Negative for cough, chest tightness, shortness of breath and wheezing. Cardiovascular: Negative for chest pain, palpitations and leg swelling. Gastrointestinal: Negative for abdominal pain, blood in stool, constipation, diarrhea, nausea and vomiting. Endocrine: Negative for cold intolerance, heat intolerance, polydipsia, polyphagia and polyuria. Genitourinary: Negative for difficulty urinating, dysuria, frequency, hematuria and pelvic pain. Musculoskeletal: Positive for arthralgias, gait problem, joint swelling and myalgias. Skin: Negative. Neurological: Negative for dizziness, syncope, weakness, light-headedness and headaches. Hematological: Negative. Psychiatric/Behavioral: Negative. Physical Exam Vitals: 02/12/23 1334 BP: 151/92 BP Location: Right arm Patient Position: Sitting Pulse: 77 SpO2: 98% Weight: 88.5 kg (195 lb) Height: 154.9 cm (5' 0.98 ) Body mass index is 36.86 kg/m??. Physical Exam Vitals and nursing note reviewed. Constitutional: General: She is not in acute distress. Appearance: Normal appearance. She is well-developed. She is not diaphoretic. HENT: Head: Normocephalic and atraumatic. Eyes: Conjunctiva/sclera: Conjunctivae normal. Musculoskeletal: General: No tenderness or deformity. Right lower leg: No edema. Left lower leg: No edema. Comments: Active and passive range of motion bilateral knees is painful Skin: General: Skin is warm and dry. Neurological: General: No focal deficit present. Mental Status: She is alert and oriented to person, place, and time. Sensory: No sensory deficit. Motor: No weakness or abnormal muscle tone. Coordination: Coordination normal. Deep Tendon Reflexes: Reflexes normal. Psychiatric: Mood and Affect: Mood normal. Behavior: Behavior normal. Thought Content: Thought content normal. Judgment: Judgment normal. Review of Data: Clinical evaluation forms were reviewed including the PEG Scale Assessing Pain Intensity and Interference with score of 4 Current Opioid Misuse Measure (COMM) reviewed with score of 7 (> or equal to 9 is higher risk ofopioid misuse) [place] and [place] Prescription Drug Monitoring Reviewed and was consistent with office guidelines and policies. Most recent Urine Toxicology findings reviewed. 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 I recommend that the patient call their primary care provider or a physician of their choice this week to arrange follow up for further evaluation of possible pre-hypertension or hypertension. I have also recommended that they try weight loss and exercise for management. Status of patient is unchanged since her last visit. She continues to suffer from ongoing chronic pain syndrome associated with her bilateral knee pain which affects her activities of daily living. Medication has proven helpful in reducing symptoms and allowing for improved mobility and function toa degree. There is no indication of inappropriate use of her medication and we will provided with refills of the oxycodone but increase dose to 7.5/325 to be taken 4 times daily if needed. We have attempted long-acting medications in the past with less than desirable results. Goals of Treatment: Treat underlying pathology, improve pain control, improve function and quality of life. Use of Medications: The pain management contract has been reviewed. Questions solicited and answered, and the patient endorses a clear understanding. The patient understands random toxicology screening and prescription drug monitoring will be used. Instructed to take the smallest effective dose of opioid medication. Ri sks/side-effects of opioid medications, if utilizing, have been reviewed including: drowsiness, tolerance, addiction, abuse, constipation, nausea, vomiting, itching, dizziness, allergic reaction, respiratory depression, lack of benefit, endocrine abnormalities, low testosterone, sexual dysfunction,or . If utilizing, risks/side-effects of NSAID???s and potential for gastrointestinal bleeding, gastritis/esophagitis, and increased cardiac risk reviewed. Risks/side-effects of Gabapentin, Lyrica, and other potential sedative medications, if utilizing, have been reviewed including drowsiness,sedation, dizziness, fluid retention, weight gain, respiratory depression, and . The patient has been instructed to take every medication appropriately, storing and disposing properly, never sharing medication. The patient has been instructed on opioid medications, including but not limited to: do not combine with other medications such as benzodiazepines, alcohol, muscle relaxers, or other depressant medications. Patient instructed to avoid driving and operating heavy machinery. UDS screens will be performed to assess for medication, metabolites, other medications, and illicit substances. Results may be discussed at the next visit. This dictation was performed using M*Modal dictation. There may be some transcription typist variances which are not appreciated or corrected in this note. 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 documented in this encounter Discontinued Medications Medication Sig Discontinue Reason Start Date End oxyCODONE-acetaminophen (PERCOCET) 5-325 mg per tabletIndications:Pain Take 1 tablet by mouth every 6 (six) hours as needed for pain 10/24/2022 02/12/2023 oxyCODONE-acetaminophen (PERCOCET) 7.5-325 mg per tabletIndications:Pain Take 1 tablet by mouth every 6 (six) hours as needed for pain 12/25/2022 02/12/2023 oxyCODONE-acetaminophen (PERCOCET) 7.5-325 mg per tabletIndications:Pain Take 1 tablet by mouth every 6 (six) hours as needed for pain 01/24/2023 02/12/2023 documented as of this encounter Care Teams Terra Cotta Mold Maker Relationship Specialty Start Date End Date René Smallwood MD PCP - General Family Medicine 02/11/20 René Smallwood MD Family Medicine 02/11/20 documented as of this encounter
--- OUTSIDE RECORDS SUMMARY | 2024-05-11 17:33 | XMS_ITS | Encounter Summary ---
Author Organization [facility] Address [address] [place] [address] Care Team Providers Care Collision Technician Name Role Phone René Smallwood MD Primary Care Provider [phone] René Smallwood MD Unavailable [phone] Reason for Visit * Reason Comments Follow-up 2 month f/u Encounter Details Date Type Department Care Team (Late st Contact Info) Description 04/09/2023 2:30 PM ACCOUNTANT Office Visit [facility] Pain Management at [address] [address] Vishal Garza ASSISTANT GUEST SERVICES MANAGER [address] [place] [address] Chronic pain of both knees (Primary Dx); Chronic pain syndrome; Failure of total knee replacement, sequela; group home (current) use of opiate analgesic Social History [...] on file Legal Sex Female 11:20 AM ACCOUNTANT Gender Identity Not on file Sexual Orientation Not on file Occupation Industry Job Start Date Job End Date unemployed/disability Not on file Not on file Not on file documented as of this encounter Last Filed Vital Signs Vital Sign Reading Time Taken Comments Blood Pressure - - Pulse 82 04/09/2023 2:43 PM ACCOUNTANT Temperature - - Respiratory Rate 18 04/09/2023 2:43 PM ACCOUNTANT Oxygen Saturation 96% 04/09/2023 2:43 PM ACCOUNTANT Inhaled Oxygen Concentration - - Weight - - Height 154.9 cm (5' 0.98 ) 04/09/2023 2:43 PM CS T Body Mass Index - - documented in this encounter Ordered Prescriptions Prescription Sig Dispense Quantity Refills Last Filled Start Date End Date oxyCODONE-acetamin ophen (PERCOCET) 7.5-325 mg per tabletIndications: Pain Take 1 tablet by mouth every 6 (six) hours as needed for pain 120 tablet 05/24/2023 06/11/2023 oxyCODONE-acetamin ophen (PERCOCET) 7.5-325 mg per tabletIndications: Pain Take 1 tablet by mouth every 6 (six) hours as needed for pain 120 tablet 04/24/2023 06/11/2023 documented in this encounter Progress Notes * Vishal Garza NP - 04/09/2023 2:30 PM CST Patient Name: Marnie Roque : 1965 Today's Date: 04/09/2023 PCP: René Smallwood MD Referring: Vishal Garza NP Chief Complaint Patient presents with Follow-up 2 month f/u HPI Patient returned complaints of ongoing chronic bilateral knee pain. Pain varies from stabbing to sharp and is present on a daily basis. Pain certainly affects her activities of daily living and her mobility. She is actually restricted significantly with her activities of daily living due to her pain. Currently pain rated 8 on 10 scale. In the past she is been taking Percocet 5/325 with benefit. Medication helps by approximately 60-65% without adverse side effects. Since patient's last visit, she injured herself falling, injuring her sternum and thoracic cage. She was evaluated by her primary care physician diagnosed with contusion in strain sprain. She has some difficulty moving about in breathing due to the pain in the sternal area Patient is attempting to lose weight. She [...] date: 05/27/1994 Quit date: 12/11/2017 Years since quittin.3 Smokeless tobacco: Never Substance and Sexual Activity Drug use: No Sexual activity: Defer Alcohol Use: Unknown (04/24/2022) AUDIT-C Frequency of Alcohol Consumption: Monthly or less Average Number of Drinks: Not on file Frequency of Binge Drinking: Not on file Family History Problem Relation Age of Onset Arthritis Other Mental illness Other Cancer Maternal Grandmother HOME MEDICATIONS : alendronate (FOSAMAX) 70 mg tablet levothyroxine (SYNTHROID) 100 mcg tablet oxyCODONE-acetaminophen (PERCOCET) 7.5-325 mg per tablet ALPRAZolam (XANAX) 0.25 mg tablet naloxone (NARCAN) 4 mg/actuation spray,non-aerosol oxyCODONE-acetaminophen (PERCOCET) 7.5-325 mg per tablet oxyCODONE-acetaminophen (PERCOCET) 7.5-325 mg per tablet buprenorphine HCL (Belbuca) 150 mcg film diazePAM (VALIUM) 5 mg tablet levothyroxine sodium (TIROSINT) 112 mcg capsule oxyCODONE-acetaminophen (PERCOCET) 7.5-325 mg per tablet topiramate [...] Hematological: Negative. Psychiatric/Behavioral: Negative. Physical Exam Vitals: 04/09/23 1443 BP: Comment: unable Pulse: 82 Resp: 18 SpO2: 96% Weight: Comment: pt refused Height: 154.9 cm (5' 0.98 ) Body mass index is 36.87 kg/m??. Physical Exam Vitals and nursing note [...] Pain Intensity and Interference with score of 8 Current Opioid Misuse Measure (COMM) reviewed with score of 7 (> or equal to 9 is higher risk ofopioid misuse) [place] and [place] Prescription Drug Monitoring Reviewed and was consistent with office guidelines and policies. Most recent Urine Toxicology findings reviewed. Assessment Problem List Mental Health group home (current) use of opiate analgesic Musculoskeletal and Injuries Failed total knee arthroplasty (CMS/[facility]) (HCC) Overview Added automatically from request for surgery [id number] Chronic pain of both knees - Primary Relevant Medications oxyCODONE-acetaminophen (PERCOCET) 7.5-325 mg per tablet (Start on 05/24/2023) Neuro Chronic pain syndrome Plan Pre-hypertension/Hypertension: The [...] use of her medication and we will provide her with refills of the oxycodone but increase dose to 7.5/325 to be taken 4 times daily if needed. Urine toxicology screen to be obtained today. Goals of Treatment: Treat underlying pathology, improve [...] using M*Modal dictation. There may be some ccu nurse variances which are not appreciated or corrected in this note. UNTANT documented in this encounter Plan of Treatment Not on file documented as of this encounter Visit Diagnoses Diagnosis Chronic pain of both knees- Primary Chronic pain syndrome Failure of total knee replacement, sequela rn long term care (current) use of opiate analgesic documented in this encounter Discontinued Medications Medication Sig Discontinue Reason Start Date End Da te levothyroxine sodium (TIROSINT) 112 mcg capsuleIndications:hypoth yroidism Take 1 capsule (112 mcg total) by mouth every morning 12/30/2017 04/09/2023 diazePAM (VALIUM) 5 mg tabletIndications:anxiety Take 5 mg by mouth nightly as needed at bedtime. 12/16/2017 04/09/2023 topiramate (TOPAMAX) 50 mg tablet Take 100 mg by mouth 2 (two) times a day 01/26/2020 04/09/2023 buprenorphine HCL (Belbuca) 150 mcg filmIndications:Complex regional pain syndrome type 1 of both lower extremities,Chronic pain of both knees,Chronic postoperative pain Apply 150 mcg to cheek every 12 (twelve) hours 09/22/2021 04/09/2023 oxyCODONE-acetaminophen (PERCOCET) 7.5-325 mg per tabletIndications:Pain Take 1 tablet by mouth every 6 (six) hours as needed for pain 02/23/2023 04/09/2023 oxyCODONE-acetaminophen (PERCOCET) 7.5-325 mg per tabletIndications:Pain Take 1 tablet by mouth every 6 (six) hours as needed for pain Reorder 03/25/2023 04/09/2023 documented as of this encounter Historical Medications * This list may reflect changes made after this encounter. levothyroxine (SYNTHROID) 100 mcg tablet Take 1 tablet (100 mcg total) by mouth daily 02/18/2023 added in this encounter Care Teams Collision Technician Relationship Specialty Start Date End Date Reén Smallwood MD PCP - General Family Medicine 9/17/20 René Smallwood MD Family Medicine 02/11/20 documented as of this encounter
--- OUTSIDE RECORDS SUMMARY | 2024-05-11 17:33 | XMS_ITS | Encounter Summary ---
Author Organization [facility] Healthcare Address [address] [place] [address] Care Team Providers Care Outreach Rep Name Role Phone René Smallwood MD Primary Care Provider [phone] René Smallwood MD Unavailable Reason for Referral * Consultation (Routine) - Closed Specialty Diagnoses / Procedures Referred By Liz falcon Referred To Contact Pain Management Diagnoses Chronic pain syndrome René Smallwood MD Phone: tel: fax: [facility] [address] [place] [address] Phone: tel: fax: Referral ID Status Reason Start Date Expiration Date V isits Requested Visits Authorized [id number] Closed Specialty Services Required 02/08/2021 02/07/2022 12 12 Question Answer Please select the performing region: [facility] [[id number]] Please select the performing department: [facility] [[id number]] # of visits: 1 TIDIGITATOR Reason for Visit * Reason Comments Med Management * Consultation (Routine) - Closed Specialty Diagnoses / Procedures Referred By Liz falcon Referred To Contact Pain Management Diagnoses Chronic pain syndrome René Smallwood MD Phone: tel: fax: [facility] [address] [place] [address] Phone: tel: fax: Referral ID Status Reason Start Date Expiration Date V isits Requested Visits Authorized [id number] Closed Specialty Services Required 02/08/2021 02/07/2022 12 12 Encounter Details Date Type Department Care Team (Late st Contact Info) Description 07/12/2021 4:00 PM PRESTIDIGITATOR - 07/12/2021 11:59 PM PRESTIDIGITATOR Hospital Encounter [facility] [address] [place] [address] [place] [address] [facility] [address] [place] [address] René Smallwood MD [address] [facility] [address] [place], [place] [id number] [place] [address] [facility] [address] [address] [place] [address] Chronic pain of both knees (Primary Dx); Chronic pain syndrome; Complex regional pain syndrome type 1 of both lower extremities Discharge Disposition: Discharge to home or self care Social History Tobacco Use Types Packs/Day Years Used Date Smoking Tobacco: Former Cigarettes 0.3 23.5 0 05/27/1994 - 12/11/2017 Smokeless Tobacco: Never Alcohol Use Standard Drinks/Week Comments Yes 0 (1 standard drink = 0.6 oz pur e alcohol) social Comments No Sex and Gender Information Value Date Recorded Sex Assigned at Not on file Legal Sex Female 11:20 AM PRESTIDIGITATOR Gender Identity Not on file Sexual Orientation Not on file Occupation Industry Job Start Date Job End Date unemployed/disability Not on file Not on file Not on file documented as of this encounter Last Filed Vital Signs Vital Sign Reading Time Taken Comments Blood Pressure 130/84 07/12/2021 4:15 PM PRESTIDIGITATOR Pulse 81 07/12/2021 4:15 PM PRESTIDIGITATOR Temperature - - Respiratory Rate 20 07/12/2021 4:15 PM PRESTIDIGITATOR Oxygen Saturation 100% 07/12/2021 4:15 PM PRESTIDIGITATOR Inhaled Oxygen Concentration - - Weight - - Height - - Body Mass Index - - documented in this encounter Medications at Time of Discharge ALPRAZolam (XANAX) 0.25 mg tablet Take 1 tab p.o. 1 hour prior to procedure. May take 1 additional tab p.o. 20-30 minutes prior to procedure if needed. Do not drive remainder of day. 2 tablet 05/10/2021 diazePAM (VALIUM) 5 mg tabletIndication s:anxiety Take 5 mg by mouth nightly as needed at bedtime. 5 12/16/2017 3 levothyroxine sodium (TIROSINT) 112 mcg capsuleIndicatio ns:hypothyroidis m Take 1 capsule (112 mcg total) by mouth every morning 12/30/2017 3 oxyCODONE-acetam inophen (PERCOCET) 5-325 mg per tabletIndication s:Pain Take 1 tablet by mouth 2 (two) times a day as needed for pain 60 tablet 07/13/2021 2 oxyCODONE-acetam inophen (PERCOCET) 5-325 mg per tabletIndication s:Pain Take 1 tablet by mouth 2 (two) times a day as needed for pain 60 tablet 08/11/2021 2 topiramate (TOPAMAX) 50 mg tablet Take 100 mg by mouth 2 (two) times a day 01/26/2020 3 documented as of this encounter Discharge Disposition Disposition Code Departure Means Destination Discharge to home or self care documented in this encounter Progress Notes * Vishal Garza, SUPERVISOR QUILTING - 07/12/2021 4:00 PM CST Patient Name: Marnie Roque : 1965 Today's Date: 07/12/2021 PCP: René Smallwood MD Referring: René Smallwood MD Chief Complaint Patient presents with ??? Med Management HPI Patient returned with complaints of bilateral knee pain. Pain described as crushing and stabbing. Pain is rated 8 on 10 scale. She recently had geniculate nerve blocks performed on the left knee and reports noting no benefit immediately post procedure or over the next several hours into that evening. Patient continues with the oxycodone with some benefit for short term. Time. She seems to take the medication conservatively and is denying any side effects. At this point patient is somewhat discouraged and is considering potential orthopedic consult again. No Known Allergies Past Medical History: Diagnosis Date ??? Anxiety ??? Arthritis ??? Depression ??? Hyperthyroidism ??? Hypothyroidism ??? Migraines ??? Obesity Past Surgical History: Procedure Laterality Date ??? FL UPPER GI AIR CONTRAST W KUB Left 02/26/2019 ??? LIPOSUCTION EXTREMITIES arms ??? PERONEAL NERVE DECOMPRESSION Left 11/2019 ??? REVISION TOTAL KNEE ARTHROPLASTY Right 02/18/2018 ??? REVISION TOTAL KNEE ARTHROPLASTY Left ??? TOTAL KNEE ARTHROPLASTY Left 05/2014 ??? TOTAL KNEE ARTHROPLASTY Right 08/2015 ??? TUBAL LIGATION ??? WRIST FRACTURE SURGERY Social History Socioeconomic History ??? Marital status: Single Spouse name: Not on file ??? Number of children: Not on file ??? Years of education: Not on file ??? Highest education level: Not on file Occupational History ??? Occupation: unemployed/disability Tobacco Use ??? Smoking status: Former Smoker Packs/day: 0.25 Types: Cigarettes Start date: 05/27/1994 Quit date: 12/11/2017 Years since quittin.5 ??? Smokeless tobacco: Never Used Substance and Sexual Activity ??? Alcohol use: Yes Comment: social ??? Drug use: No ??? Sexual activity: Defer Other Topics Concern ??? Not on file Social History Narrative ??? Not on file Social Determinants of Health Financial Resource Strain: Not on file Food Insecurity: Not on file Transportation Needs: Not on file Physical Activity: Not on file Stress: Not on file Social Connections: Not on file Intimate Partner Violence: Not on file Housing Stability: Not on file Family History Problem Relation Age of Onset ??? Arthritis Other ??? Mental illness Other ??? Cancer Maternal Grandmother HOME MEDICATIONS : levothyroxine sodium (TIROSINT) 112 mcg capsule oxyCODONE-acetaminophen (PERCOCET) 5-325 mg per tablet topiramate (TOPAMAX) 50 mg tablet ALPRAZolam (XANAX) 0.25 mg tablet diazePAM (VALIUM) 5 mg tablet rizatriptan (MAXALT) 10 mg tablet topiramate (TOPAMAX) 25 mg tablet Review of Systems Review of [...] Negative. Neurological: Negative for dizziness, syncope, weakness, light-headedness, numbness and headaches. Hematological: Negative. Psychiatric/Behavioral: Negative. Physical Exam Vitals: 07/12/21 1615 BP: 130/84 Pulse: 81 Resp: 20 SpO2: 100% There is no height or weight on file to calculate BMI. Physical Exam Vitals and nursing note reviewed. Constitutional: General: She is not in acute distress. Appearance: Normal appearance. She is well-developed. She is not diaphoretic. HENT: Head: Normocephalic and atraumatic. Eyes: Conjunctiva/sclera: Conjunctivae normal. Musculoskeletal: General: No tenderness or deformity. Right lower leg: No edema. Left lower leg: No edema. Comments: Both active and passive range of motion bilateral knees was painful and restricted at endranges of motion guarding noted. Skin: General: Skin is warm and dry. [...] Misuse Measure (COMM) reviewed with score of 2 (> or equal to 9 is higher risk ofopioid misuse) [place] and [place] Prescription Drug Monitoring Reviewed and was consistent with office guidelines and policies. Most recent Urine Toxicology findings reviewed. Assessment Problem List Musculoskeletal and Injuries Chronic pain of both knees - Primary Neuro Complex regional pain syndrome type 1 of both lower extremities Chronic pain syndrome Relevant Orders Ambulatory referral to Pain Management Plan Pre-hypertension/Hypertension: The patient has been informed [...] try weight loss and exercise for management. At this point patient is interested in pursuing orthopedic referral. She is somewhat uncertain as to who she wishes to consult with. She is considering a orthopedist in the [facility] area who apparently is well known by a close friend of hers. She will provide us with that informationshould she elect to pursue referral. In the meantime we will continue medication management with the use of the oxycodone 5/325 taken twice daily p.r.n. for moderate to severe pain. Currently no indication of inappropriate use is noted and she seems use medication conservatively. We will follow up with her in 2 months. Goals of Treatment: Treat underlying pathology, improve [...] using M*Modal dictation. There may be some supervisor cytogenetic laboratory variances which are not appreciated or corrected in this note. Cosigned by Olegario Adair MD at 07/13/2021 12:41 PM PRESTIDIGITATOR TIDIGITATOR TIDIGITATOR documented in this encounter Plan of Treatment Scheduled Referrals Name Type Priority Associated Diagnoses Order Schedule Ambulatory referral to Pain Management Outpatient Referral Routine Chronic pain syndrome Once for 1 Occurrences starting 07/12/2021 until 07/12/2021 documented as of this encounter Visit Diagnoses Diagnosis Chronic pain of both knees- Primary Chronic pain syndrome Complex regional pain syndrome type 1 of both lower extremities documented in this encounter Discontinued Medications Medication Sig Discontinue Reason Start Date End Da te topiramate (TOPAMAX) 25 mg tabletIndications:Migrain e Prevention Take 100 mg by mouth 2 (two) times a day Formulary change 12/30/2017 07/12/2021 rizatriptan (MAXALT) 10 mg tablet Therapy completed 02/17/2020 07/12/2021 documented as of this encounter Historical Medications * This list may reflect changes made after this encounter. oxyCODONE-acetami nophen (PERCOCET) 5-325 mg per tabletIndications :Pain Take 1 tablet by mouth 2 (two) times a day as needed for pain 07/12/2021 added in this encounter Care Teams Outreach Rep Relationship Specialty Start Date End Date René Smallwood MD PCP - General Family Medicine 02/11/20 René Smallwood MD Family Medicine 02/11/20 documented as of this encounter
--- OUTSIDE RECORDS SUMMARY | 2024-05-11 17:33 | XMS_ITS | Encounter Summary ---
Author Organization [facility] Healthcare Address [address] [place] [address] Care Team Providers Care Documentation Engineer Name Role Phone René Smallwood MD Primary Care Provider [phone] René Smallwood MD Unavailable [phone] Reason for Referral * MRI/CAT/PET Scan (Routine) - Denied Specialty Diagnoses / Procedures Referred By Liz falcon Referred To Contact Diagnoses Chronic pain syndrome Chronic right shoulder pain Procedures MRI [place]er [place] [address] [place] [address] Phone: tel: fax: External Order Referral ID Status Reason Start Date Expiration Date Visits Re quested Visits Authorized [id number] Denied 01/14/2024 02/12/2025 1 0 * Consultation (Routine) - Pending Review Specialty Diagnoses / Procedures Referred By Liz falcon Referred To Contact Physical Therapy Diagnoses Chronic pain syndrome Chronic [place] [address] [place] [address] Phone: tel: fax: [facility] [address] [place] [address] Phone: tel: fax: Referral ID Status Reason Start Date Expiration Date Visits Requested Visits Authorized [id number] Pending Review Evaluate and Treat 01/14/2024 02/12/2025 15 15 Question Answer PTRFR PT Evaluate and Treat Therapy options discussed with patient? Yes Location provided for therapy services is: Patient requested/Patient preferred Please select the performing region: External Order [171] To loc/pos [facility] [[id number]] # of visits: 15 Comments Right shoulder pain Reason for Visit * Reason Comments Med Management Patient is here for med refill of Percocet which offers moderate relief of knee pain. 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; Chronic right shoulder pain Discharge Disposition: Discharge to home or self [...] on file Legal Sex Female 11:20 AM TESTING DIRECTOR Gender Identity Not on file Sexual Orientation Not on file Occupation Industry Job Start Date Job End Date unemployed/disability Not on file Not on file Not on file documented as of this encounter Last Filed Vital Signs Vital Sign Reading Time Taken Comments Blood Pressure 144/103 01/14/2024 2:18 PM CDT Pulse 97 01/14/2024 2:18 PM CDT Temperature - - Respiratory Rate 16 01/14/2024 2:18 PM CDT Oxygen Saturation 98% 01/14/2024 2:18 PM CDT Inhaled Oxygen Concentration - - Weight - - Height - - Body Mass Index - - documented in this encounter Medications at Time of Discharge alendronate (FOSAMAX) 70 mg tablet 70 MG ORALLY WEEKLY 06/27/2022 ALPRAZolam (XANAX) 0.25 mg tablet Take 1 tab p.o. 1 hour prior to procedure. May take 1 additional tab p.o. 20-30 minutes prior to procedure if needed. Do not drive remainder of day. 2 tablet 05/10/2021 levothyroxine (SYNTHROID) 100 mcg tablet Take 1 tablet (100 mcg total) by mouth daily 02/18/2023 Ubrelvy 50 mg tablet TAKE 1 TABLET BY MOUTH ONCE A SINGLE DOSE MAY REPEAT ONCE IN >=2 HOURS AFTER FIRST DOSE IF NEEDED 12/04/2023 oxyCODONE-acetam inophen (PERCOCET) 7.5-325 mg per tabletIndication s:Pain Take 1 tablet by mouth every 6 (six) hours as needed for pain 120 tablet 01/24/2024 4 oxyCODONE-acetam inophen (PERCOCET) 7.5-325 mg per tabletIndication s:Pain Take 1 tablet by mouth every 6 (six) hours as needed for pain 120 tablet 02/23/2024 4 documented as of this encounter Discharge Disposition Disposition Code Departure Means Destination Discharge to home or self care documented in this encounter Progress Notes * Vishal Garza PORTABLE SAWMILL OPERATOR - 01/14/2024 2:00 PM CDT Patient Name: Marnie Roque : 1965 Today's Date: 01/14/2024 PCP: René Smallwood MD Referring: Olegario Adair* Chief Complaint Patient presents with Med Management Patient is here for med refill of Percocet which offers moderate relief of knee pain. HPI Patient returned complaints of ongoing chronic bilateral knee pain. Pain varies from stabbing to sharp and is present on a daily basis. Pain certainly affects her activities of daily living and her mobility. She is actually restricted significantly with her activities of daily living due to her pain. Currently pain rated 8 on 10 scale. She is denying developing paresthesia or developing weakness in lower extremities. In the past she has been taking Percocet 5/325 with benefit. Medication helps by approximately 60-65% without adverse side effects. She continues to contemplate possible peripheral nerve stim for her chronic knee pain. She is requesting refill of her medication In addition she reports suffering from chronic right shoulder pain. She initially had complaints ofthis condition 3 months prior. Since then she has been doing aggressive at home therapy and has obtain radiographs. 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 Low range of motion is improved she still suffers from significant discomfort and pain and limited function. Allergies Allergen Reactions Naproxen Nausea And Vomiting [...] Social History Tobacco Use Smoking status: Former Current packs/day: 0.00 Average packs/day: 0.3 packs/day for 23.5 years (5.9 ttl pk-yrs) Types: Cigarettes Start date: 05/27/1994 Quit date: 12/11/2017 Years since quittin.0 Smokeless tobacco: Never Substance and Sexual Activity Drug use: No Sexual activity: Defer Alcohol Use: Unknown (04/24/2022) AUDIT-C Frequency of Alcohol Consumption: Monthly or less Average Number of Drinks: Not on file Frequency of Binge Drinking: Not on file Family History Problem Relation Age of Onset Arthritis Other Mental illness Other Cancer Maternal Grandmother HOME MEDICATIONS : alendronate (FOSAMAX) 70 mg tablet ALPRAZolam (XANAX) 0.25 mg tablet levothyroxine (SYNTHROID) 100 mcg tablet Ubrelvy 50 mg tablet oxyCODONE-acetaminophen (PERCOCET) 7.5-325 mg per tablet naloxone (NARCAN) 4 mg/actuation spray,non-aerosol oxyCODONE-acetaminophen (PERCOCET) 7.5-325 mg per tablet oxyCODONE-acetaminophen (PERCOCET) 7.5-325 mg per tablet oxyCODONE-acetaminophen (PERCOCET) 7.5-325 mg per tablet predniSONE (DELTASONE) 20 mg tablet Review of Systems Review of [...] Hematological: Negative. Psychiatric/Behavioral: Negative. Physical Exam Vitals: 01/14/24 1418 BP: (!) 144/103 Pulse: 97 Resp: 16 SpO2: 98% There is no height or weight on file to calculate BMI. Physical Exam Vitals and nursing note reviewed. Constitutional: General: She is not in acute distress. Appearance: Normal appearance. She is well-developed. She is not diaphoretic. HENT: Head: Normocephalic and atraumatic. Eyes: Conjunctiva/sclera: Conjunctivae normal. Musculoskeletal: General: No tenderness or deformity. Right lower leg: No edema. Left lower leg: No edema. Comments: Active range of motion right shoulder was guarded. She has pain with abduction at approximately 90?? discomfort with forward flexion at approximately 120??. Extension unrestricted at 30??. Kuo test positive. Skin: General: Skin is warm and dry. [...] Pain Intensity and Interference with score of 7 Current Opioid Misuse Measure (COMM) reviewed with score of 4 (> or equal to 9 is higher risk ofopioid misuse) [place] and [place] Prescription Drug Monitoring Reviewed and was consistent with office guidelines and policies. Most recent Urine Toxicology findings reviewed. 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 Patient's presentation with the right shoulder most consistent with rotator cuff syndrome, possibleimpingement syndrome. She has been aggressive with at-home physical therapy and is yet to note significant improvement with her condition although her range of motion was surprisingly greater than expected. We will order MRI of right shoulder and recommend continued at home physical therapy. Findings of imaging will help dictate future plan of care which may include physical therapy and or orthopedic referral. She continues to suffer from ongoing chronic pain syndrome associated with her bilateral knee pain which affects her activities of daily living. Medication has proven helpful in reducing symptoms andallowing for improved mobility and function to a degree. There is no indication of inappropriate use of her medication and we will provide her with refills of the oxycodone but increase dose to 7.5/325 to be taken 4 times daily if needed. Most recent urine toxicology screen consistent with our prescribing guidelines. Continue to encourage patient to consider peripheral nerve stim option. Goals of Treatment: Treat underlying pathology, improve [...] using M*Modal dictation. There may be some manager call center variances which are not appreciated or corrected in this note. documented in this encounter Plan of Treatment Scheduled Orders Name Type Priority Associated Diagnoses Orde r Schedule MRI Shoulder Right WO Contrast Imaging Schedule Routine, Read Routine (OP Routine) Chronic pain syndrome Chronic right shoulder pain Expected: 01/14/2024, Expires: 01/13/2025 Scheduled Referrals Name Type Priority Associated Diagnoses Order Schedule Ambulatory referral order to Physical Therapy - Outpatient Referral Routine Chronic pain syndrome Chronic right shoulder pain Expected: 01/28/2024 (Approximate), Expires: 01/13/2025 documented as of this encounter Visit Diagnoses Diagnosis Chronic pain syndrome- Primary Chronic pain of both knees penitentiary (current) use of opiate analgesic Chronic right shoulder pain Pain in joint, shoulder region documented in this encounter Discontinued Medications Medication Sig Discontinue Reason Start Date End Da te predniSONE (DELTASONE) 20 mg tabletIndications:Anti-i nflammatory Take 3 tabs p.o. daily x3 days. Then take 2 tabs p.o. daily x3 days. Finally take 1 tab p.o. daily x 3 days. Therapy completed 10/15/2023 01/14/2024 documented as of this encounter Historical Medications * This list may reflect changes made after this encounter. Ubrelvy 50 mg tablet TAKE 1 TABLET BY MOUTH ONCE A SINGLE DOSE MAY REPEAT ONCE IN >=2 HOURS AFTER FIRST DOSE IF NEEDED 12/04/2023 added in this encounter Care Teams Documentation Engineer Relationship Specialty Start Date End Date René Smallwood MD PCP - General Family Medicine 02/11/20 René Smallwood MD Family Medicine 02/11/20 documented as of this encounter
--- OUTSIDE RECORDS SUMMARY | 2024-05-11 17:33 | XMS_ITS | Encounter Summary ---
Author Organization [facility] Healthcare Address [address] [place] [address] Care Team Providers Care Batt Packer Name Role Phone René Smallwood MD Primary Care Provider [phone] René Smallwood MD Unavailable [phone] Reason for Visit * Reason Comments Follow-up Encounter Details Date Type Department Care Team (Late st Contact Info) Description 10/15/2023 3:30 PM CDT Office Visit [facility] Medical [facility] Pain Management at [address] [address] Vishal Garza, PORTFOLIO ACCOUNTANT [address] [place] [address] Chronic pain syndrome (Primary Dx); Chronic pain of both knees; Acute pain of right shoulder Social History Tobacco Use Types Packs/Day Years [...] on file 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 Gender Identity Not on file Sexual Orientation Not on file Occupation Industry Job Start Date Job End Date unemployed/disability Not on file Not on file Not on file documented as of this encounter Last Filed Vital Signs Vital Sign Reading Time Taken Comments Blood Pressure 137/78 10/15/2023 3:34 PM CDT Pulse 83 10/15/2023 3:34 PM CDT Temperature - - Respiratory Rate - - Oxygen Saturation - - Inhaled Oxygen Concentration - - Weight - - Height 154.9 cm (5' 0.98 ) 10/15/2023 3:34 PM CD T Body Mass Index - - documented in this encounter Ordered Prescriptions Prescription Sig Dispense Quantity Refills Last Filled Start Date End Date predniSONE (DELTASONE) 20 mg tabletIndications: Anti-inflammatory Take 3 tabs p.o. daily x3 days. Then take 2 tabs p.o. daily x3 days. Finally take 1 tab p.o. daily x 3 days. 18 tablet 10/15/2023 4 documented in this encounter Progress Notes * Vishal Garza NP - 10/15/2023 3:30 PM CDT Patient Name: Marnie Roque : 1965 Today's Date: 10/15/2023 PCP: René Smallwood MD Referring: Vishal Garza NP Chief Complaint Patient presents with Follow-up HPI [...] medication In addition she reports suffering from acute right shoulder pain. She reports a rather insidious onset beginning proximally we can half ago. She denies any noted event or trauma leading to the increased pain. It may have possibly been from carrying a lot of groceries into the house. She points the glenohumeral joint and the upper lateral shoulder area as site of her pain. She is very limited motion due to pain. Allergies Allergen Reactions Naproxen Nausea And Vomiting [...] date: 05/27/1994 Quit date: 12/11/2017 Years since quittin.8 Smokeless tobacco: Never Substance and Sexual Activity [...] tablet oxyCODONE-acetaminophen (PERCOCET) 7.5-325 mg per tablet Review of Systems Review of Systems [...] Hematological: Negative. Psychiatric/Behavioral: Negative. Physical Exam Vitals: 10/15/23 1534 BP: 137/78 Pulse: 83 Height: 154.9 cm (5' 0.98 ) Body [...] to 9 is higher risk ofopioid misuse) [place] and [place] Prescription Drug Monitoring Reviewed and was consistent with office guidelines and policies. Most recent Urine Toxicology findings reviewed. Assessment Problem List Musculoskeletal and Injuries Chronic pain of both knees Acute pain of right shoulder Neuro Chronic pain syndrome - Primary Plan Pre-hypertension/Hypertension: The patient has been informed [...] try weight loss and exercise for management. Patient has presentation of right acute shoulder pain. We will provide her with a prednisone wean to be utilized as directed and reviewed passive and active range of motion exercises to engage in. She is used ice as directed as well. She fails to respond in a couple weeks further evaluation and possible advanced imaging would be indicated along with supervised physical therapy or orthopedic referral. She continues to suffer [...] using M*Modal dictation. There may be some gang knife fish chopper variances which are not appreciated or corrected in this note. Cosigned by Olegario Adair MD at 10/16/2023 3:18 PM CDT documented in this encounter Plan of Treatment Not on file documented as of this encounter Visit Diagnoses Diagnosis Chronic pain syndrome- Primary Chronic pain of both knees Acute pain of right shoulder documented in this encounter Care Teams Batt Packer Relationship Specialty Start Date End Date René Smallwood MD PCP - General Family Medicine 02/11/20 René Smallwood MD Family Medicine 02/11/20 documented as of this encounter
--- OUTSIDE RECORDS SUMMARY | 2024-05-11 17:33 | XMS_ITS | Encounter Summary ---
Author Organization [facility] Healthcare Address [address] [place] [address] Care Team Providers Care Sports Umpire Name Role Phone René Smallwood MD Primary Care Provider [phone] René Smallwood MD Unavailable [phone] Encounter Details Date Type Department Care Team (Late st Contact Info) Description 01/11/2022 10:15 AM CDT - 01/11/2022 11:59 PM CDT Hospital Encounter [facility] Center [address] [place] [address] [place] [address] [facility] [address] [place], [place] [id number] [place] [id number] [facility] [address] [place], [place] [id number] Failure of total knee replacement, sequela (Primary Dx); terminal gauger (current) use of opiate analgesic; Chronic pain of both knees; Chronic pain syndrome Discharge Disposition: Discharge to home or self [...] on file 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 Gender Identity Not on file Sexual Orientation Not on file Occupation Industry Job Start Date Job End Date unemployed/disability Not on file Not on file Not on file documented as of this encounter Last Filed Vital Signs Vital Sign Reading Time Taken Comments Blood Pressure 139/78 01/11/2022 10:59 AM CDT Pulse 72 01/11/2022 10:52 AM CDT Temperature - - Respiratory Rate 18 01/11/2022 10:52 AM CDT Oxygen Saturation 97% 01/11/2022 10:52 AM CDT Inhaled Oxygen Concentration - - Weight - - Height - - Body Mass Index - - documented in this encounter Medications at Time of Discharge ALPRAZolam (XANAX) 0.25 mg tablet Take 1 tab p.o. 1 hour prior to procedure. May take 1 additional tab p.o. 20-30 minutes prior to procedure if needed. Do not drive remainder of day. 2 tablet 05/10/2021 buprenorphine HCL (Belbuca) 150 mcg filmIndications:Com plex regional pain syndrome type 1 of both lower extremities,Chronic pain of both knees,Chronic postoperative pain Apply 150 mcg to cheek every 12 (twelve) hours 60 each 1 09/22/2021 3 diazePAM (VALIUM) 5 mg tabletIndications:a nxiety Take 5 mg by mouth nightly as needed at bedtime. 5 12/16/2017 3 levothyroxine sodium (TIROSINT) 112 mcg capsuleIndications: hypothyroidism Take 1 capsule (112 mcg total) by mouth every morning 12/30/2017 3 oxyCODONE-acetamino phen (PERCOCET) 5-325 mg per tabletIndications:P ain Take 1 tablet by mouth every 8 (eight) hours as needed for pain 90 tablet 02/20/2022 2 oxyCODONE-acetamino phen (PERCOCET) 5-325 mg per tabletIndications:P ain Take 1 tablet by mouth every 8 (eight) hours as needed for pain 90 tablet 01/21/2022 2 topiramate (TOPAMAX) 50 mg tablet Take 100 mg by mouth 2 (two) times a day 01/26/2020 3 documented as of this encounter Discharge Disposition Disposition Code Departure Means Destination Discharge to home or self care documented in this encounter Progress Notes * Vishal Garza, FRUIT LOADER - 01/11/2022 10:15 AM CDT Patient Name: Marnie Roque : 1965 Today's Date: 01/11/2022 PCP: René Smallwood MD Referring: No ref. provider found No chief complaint on file. HPI Patient returned with complaints of bilateral knee pain. Pain described as crushing and stabbing. Pain is rated 8 on 10 scale. Pain utilizes her oxycodone for pain which helps reduce her symptomatology a fair degree but does not last long enough. She recently consulted a orthopedist in [place].She has decided to pursue the surgical intervention to improve the alignment of the right knee. Shewas informed that this may not help with her pain. In the meantime she is requesting refill on her medication. She inquires about postop management ofher pain. Her current medication regime decreases her symptoms by approximately 65%. No reported side effects. No Known Allergies Past Medical History: Diagnosis [...] date: 05/27/1994 Quit date: 12/11/2017 Years since quittin.9 ??? Smokeless tobacco: Never Used Substance and [...] capsule oxyCODONE-acetaminophen (PERCOCET) 5-325 mg per tablet oxyCODONE-acetaminophen (PERCOCET) 5-325 mg per tablet ALPRAZolam (XANAX) 0.25 mg tablet buprenorphine HCL (Belbuca) 150 mcg film diazePAM (VALIUM) 5 mg tablet topiramate (TOPAMAX) 50 mg tablet Review [...] Hematological: Negative. Psychiatric/Behavioral: Negative. Physical Exam Vitals: 01/11/22 1052 01/11/22 1059 BP: (!) 152/117 139/78 BP Location: Right arm Left arm Pulse: 72 Resp: 18 SpO2: 97% There is no height or weight on [...] Content: Thought content normal. Judgment: Judgment normal. Assessment Problem List Mental Health half-way (current) use of opiate analgesic Musculoskeletal and Injuries Failed total knee arthroplasty ([facility] ([facility]) - Primary Overview Added automatically from request for surgery [id number] Chronic pain of both knees Neuro Chronic pain syndrome Plan Pre-hypertension/Hypertension: The [...] try weight loss and exercise for management. We discussed options in managing patient's postop knee following her outpatient surgery which is upcoming. She elected to have us continue medication management and will decline any medication prescribed by her orthopedist. She is doing well with the oxycodone 5/325 taken approximate 3 times daily.Will provide with refills for the upcoming 2 months. Goals of Treatment: Treat underlying [...] using M*Modal dictation. There may be some solar photovoltaic crew lead variances which are not appreciated or corrected in this note. documented in this encounter Plan of Treatment Not on file documented as of this encounter Visit Diagnoses Diagnosis Failure of total knee replacement, sequela- Primary terminal gauger (current) use of opiate analgesic Chronic pain of both knees Chronic pain syndrome documented in this encounter Care Teams Sports Umpire Relationship Specialty Start Date End Date René Smallwood MD PCP - General Family Medicine 02/11/20 René Smallwood MD Family Medicine 02/11/20 documented as of this encounter
--- OUTSIDE RECORDS SUMMARY | 2024-05-11 17:33 | XMS_ITS | Encounter Summary ---
Author Organization [facility] Medical [facility] Address [address] [facility] [address] [place] [address] Care Team Providers Care Sawing And Assembly Supervisor Name Role Phone René Smallwood MD Primary Care Provider René Smallwood MD Unavailable [phone] Reason for Visit * Reason Comments Follow-up Knee pain Encounter Details Date Type Department Care Team (Latest Contact Info) Description 08/14/2022 1:30 PM CDT Office Visit [facility] Pain Management at [address] [address] Vishal Garza SUPERVISOR VENDOR QUALITY [address] [place] [address] Mechanical loosening of internal left knee prosthetic joint, sequela (Primary Dx); Complex regional pain syndrome type 1 of both lower extremities; Chronic postoperative pain; Chronic pain syndrome; Chronic pain of both knees; ocean transportation intermediary (current) use of opiate analgesic Social History Tobacco Use Types Packs/Day Years Used Date Smoking Tobacco: Former Cigarettes 0.3 23.5 0 05/27/1994 - 12/11/2017 Smokeless Tobacco: Never Tobacco Cessation:Counseling Given: Not Answered Alcohol Use Standard Drinks/Week Comments Yes 0 [...] on file 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 Gender Identity Not on file Sexual Orientation Not on file Occupation Industry Job Start Date Job End Date unemployed/disability Not on file Not on file Not on file documented as of this encounter Last Filed Vital Signs Vital Sign Reading Time Taken Comments Blood Pressure 144/85 08/14/2022 1:25 PM CDT Pulse 86 08/14/2022 1:25 PM CDT Temperature - - Respiratory Rate - - Oxygen Saturation 99% 08/14/2022 1:25 PM CDT Inhaled Oxygen Concentration - - Weight - - Height 154.9 cm (5' 0.98 ) 08/14/2022 1:25 PM CD T Body Mass Index - - documented in this encounter Ordered Prescriptions Prescription Sig Dispense Quantity Refills Last Filled Start Date End Date oxyCODONE-acetamin ophen (PERCOCET) 5-325 mg per tabletIndications: Pain Take 1 tablet by mouth every 6 (six) hours as needed for pain 120 tablet 09/23/2022 09/24/2022 oxyCODONE-acetamin ophen (PERCOCET) 5-325 mg per tabletIndications: Pain Take 1 tablet by mouth every 6 (six) hours as needed for pain 120 tablet 08/24/2022 10/16/2022 documented in this encounter Progress Notes * Vishal Garza, SUPERVISOR VENDOR QUALITY - 08/14/2022 1:30 PM CDT Patient Name: Marnie Roque : 1965 Today's Date: 08/14/2022 PCP: René Smallwood MD Referring: René Smallwood MD Chief Complaint Patient presents with Follow-up Knee pain HPI Patient returned with ongoing complaints of chronic bilateral knee pain. She reports improvement with her knee from the recent orthopedic surgery as there is better alignment but regarding symptomatology there is no change. She continues to endorse pain level currently at 8 on 10 scale. Pain described as being sharp and stabbing and exacerbated with walking and standing. She also notes a ???burning?? feeling similar to road rash that often occurs. Currently doing well with the oxycodone takingit as directed with benefit. It helps by 65-70%. She is denying any change in his symptomatology ordecline in function. She is requesting refill. Allergies Allergen Reactions Naproxen Nausea And Vomiting [...] History Tobacco Use Smoking status: Former Packs/day: 0.25 Types: Cigarettes Start date: 05/27/1994 Quit date: 12/11/2017 Years since quittin.6 Smokeless tobacco: Never Substance and Sexual Activity Drug use: No Sexual activity: Defer Alcohol Use: Unknown Frequency of Alcohol Consumption: Monthly or less Average Number of Drinks: Not on file Frequency of Binge Drinking: Not on file Family History Problem Relation Age of Onset Arthritis Other Mental illness Other Cancer Maternal Grandmother HOME MEDICATIONS : alendronate (FOSAMAX) 70 mg tablet levothyroxine sodium (TIROSINT) 112 mcg capsule oxyCODONE-acetaminophen (PERCOCET) 5-325 mg per tablet ALPRAZolam (XANAX) 0.25 mg tablet buprenorphine HCL (Belbuca) 150 mcg film diazePAM (VALIUM) 5 mg tablet oxyCODONE-acetaminophen (PERCOCET) 5-325 mg per tablet oxyCODONE-acetaminophen (PERCOCET) 5-325 mg per tablet topiramate (TOPAMAX) 50 mg tablet Review of Systems Review of Systems Musculoskeletal: Positive for arthralgias, gait problem, joint swelling and myalgias. Neurological: Negative for weakness. Physical Exam Vitals: 08/14/22 1325 BP: 144/85 BP Location: Left arm Patient Position: Sitting Pulse: 86 SpO2: 99% Weight: Comment: patient refused Height: 154.9 cm (5' 0.98 ) Body mass index is 34.78 kg/m??. Physical Exam Vitals and nursing note reviewed. Constitutional: General: She is not in acute distress. Appearance: Normal appearance. She is well-developed. She is not diaphoretic. HENT: Head: Normocephalic and atraumatic. Eyes: Conjunctiva/sclera: Conjunctivae normal. Musculoskeletal: General: Tenderness present. No deformity. Right lower leg: No edema. Left [...] Judgment normal. 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 Based on subjective and objective findings patient suffers from chronic pain syndrome, specificallychronic postoperative knee pain. This affects her activities of daily living and her mobility. Options long-term if she rules out other potential orthopedic interventions would be peripheral nerve stim to bilateral knees. This was discussed in greater depth and she does have somewhat of an interest. It was noted that most recent urine toxicology screen did show evidence of benzodiazepines. This was relatively low level and I do realize she was prescribed Valium at some point in the past. We reviewed our prescribing guidelines and the importance to adhere to them. We will continue with the oxyc odone 5/325 to be taken Q 6 hours p.r.n. for moderate to severe pain. This maintains a degree of function and mobility for the patient. Review of documentation shows no evidence of inappropriate use of her medication. We will obtain urine toxicology screen, provided with 2 months of medication coverage and schedule her to follow-up at that time or sooner if needed. Goals of Treatment: Treat underlying pathology, improve [...] using M*Modal dictation. There may be some health and fitness instructor variances which are not appreciated or corrected in this note. documented in this encounter Plan of Treatment Not on file documented as of this encounter Visit Diagnoses Diagnosis Mechanical loosening of internal left knee prosthetic joint, sequela- Primary Complex regional pain syndrome type 1 of both lower extremities Chronic postoperative pain Other chronic postoperative pain Chronic pain syndrome Chronic pain of both knees ocean transportation intermediary (current) use of opiate analgesic documented in this encounter Discontinued Medications Medication Sig Discontinue Reason Start Date End Da te oxyCODONE-acetaminophen (PERCOCET) 5-325 mg per tabletIndications:Pain Take 1 tablet by mouth every 6 (six) hours as needed for pain 07/23/2022 08/14/2022 oxyCODONE-acetaminophen (PERCOCET) 5-325 mg per tabletIndications:Pain Take 1 tablet by mouth every 6 (six) hours as needed for pain 06/23/2022 08/14/2022 oxyCODONE-acetaminophen (PERCOCET) 5-325 mg per tabletIndications:Pain Take 1 tablet by mouth every 6 (six) hours as needed for pain 05/24/2022 08/14/2022 documented as of this encounter Historical Medications * This list may reflect changes made after this encounter. alendronate (FOSAMAX) 70 mg tablet 70 MG ORALLY WEEKLY 06/27/2022 added in this encounter Care Teams Sawing And Assembly Supervisor Relationship Specialty Start Date End Date René Smallwood MD PCP - General Family Medicine 02/11/20 René Smallwood MD Family Medicine 02/11/20 documented as of this encounter
--- OUTSIDE RECORDS SUMMARY | 2024-05-11 17:33 | XMS_ITS | Encounter Summary ---
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 Thank you documented in this encounter Plan of Treatment Scheduled Orders Name Type Priority Associated Diagnoses Orde r Schedule XR Shoulder Right 2 or More Views Imaging Schedule Routine, Read Routine (OP Routine) Acute pain of right shoulder Expected: 11/20/2023, Expires: 11/19/2024 documented as of this encounter Visit Diagnoses Diagnosis Acute pain of right shoulder- Primary documented in this encounter Care Teams Ivory Carver Relationship Specialty Start Date End Date René Smallwood MD PCP - General Family Medicine 02/11/20 René Smallwood MD Family Medicine 02/11/20 documented as of this encounter
--- OUTSIDE RECORDS SUMMARY | 2024-05-11 17:33 | XMS_ITS | Encounter Summary ---
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 Gender Identity Not on file Sexual Orientation Not on file Occupation Industry Job Start Date Job End Date unemployed/disability Not on file Not on file Not on file documented as of this encounter Ordered Prescriptions Prescription Sig Dispense Quantity Refills Last Filled Start Date End Date oxyCODONE-acetamin ophen (PERCOCET) 7.5-325 mg per tabletIndications: Pain Take 1 tablet by mouth every 6 (six) hours as needed for pain 120 tablet 12/25/2023 01/14/2024 documented in this encounter Miscellaneous Notes * Telephone Encounter - Cheryl Hummel - 12/12/2023 11:28 AM CDT BRION[facility] CALLED BACK AND HAS APT IN DECEMBER. ONE MONTH SCRIPT NEEDS TO BE SENT TO [facility] [place]. * Telephone Encounter - Eladia Rico - 12/12/2023 10:49 AM CDT Lm find out where she wants her 1 month script called in since ayan won't be in and then make her appt in December to see Ayan. Let me know when she calls and put a note into the nurses for the refill documented in this encounter Plan of Treatment Not on file documented as of this encounter Visit Diagnoses Diagnosis Chronic pain of both knees documented in this encounter Discontinued Medications Medication Sig Discontinue Reason Start Date End Da te oxyCODONE-acetaminophen (PERCOCET) 7.5-325 mg per tabletIndications:Pain Take 1 tablet by mouth every 6 (six) hours as needed for pain Reorder 11/23/2023 12/12/2023 documented as of this encounter Care Teams Hot Pipe Gauger Relationship Specialty Start Date End Date René Smallwood MD PCP - General Family Medicine 02/11/20 René Smallwood MD Family Medicine 02/11/20 documented as of this encounter
--- OUTSIDE RECORDS SUMMARY | 2024-05-11 17:33 | XMS_ITS | Encounter Summary ---
Author Organization [facility] Healthcare Address [address] [place] [address] Care Team Providers Care Career Counselor Name Role Phone Rneé Smallwood MD Primary Care Provider [phone] René Smallwood MD Unavailable [phone] Reason for Visit * Reason Comments Follow-up Knee Pain Med Management Patient presents for f/u for med refill . Pain is the same since last visit. Pain to bilateral knees, . Taking Oxycodone, which provides 60-65% pain relief. Encounter Details Date Type Department Care Team (Latest Contact Info) Description 03/10/2024 2:00 PM CDT - 03/10/2024 11:59 PM CDT Hospital Encounter [facility] [address] [place] [address] [place] [address] [facility] [address] [place] [address] Saphenous nerve neuropathy, left (Primary Dx); Peroneal neuropathy at knee, left; Chronic pain of both knees Discharge Disposition: Discharge to home or self [...] Average Number of Drinks Not on file 11/29/2 022 Frequency of Binge Drinking Not on file 03/28 Comments No Sex and Gender Information Value Date Recorded Sex Assigned at Not on file Legal Sex 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 Gender Identity Not on file Sexual Orientation Not on file Occupation Industry Job Start Date Job End Date unemployed/disability Not on file Not on file Not on file documented as of this encounter Last Filed Vital Signs Vital Sign Reading Time Taken Comments Blood Pressure 127/80 03/10/2024 2:23 PM CDT Pulse 61 03/10/2024 2:23 PM CDT Temperature - - Respiratory Rate 18 03/10/2024 2:23 PM CDT Oxygen Saturation 96% 03/10/2024 2:23 PM CDT Inhaled Oxygen Concentration - - [...] (100 mcg total) by mouth daily 02/18/2023 oxyCODONE-acetamino phen (PERCOCET) 7.5-325 mg per tabletIndications:P ain Take 1 tablet by mouth every 6 (six) hours as needed for pain 120 tablet 03/27/2024 oxyCODONE-acetamino phen (PERCOCET) 7.5-325 mg per tabletIndications:P ain Take 1 tablet by mouth every 6 (six) hours as needed for pain 120 tablet 04/26/2024 propranolol LA (INDERAL LA) 80 mg 24 hr capsule Take 1 capsule (80 mg total) by mouth daily 03/06/2024 rizatriptan (MAXALT) 5 mg tablet Take 1 tablet (5 mg total) by mouth as needed 03/06/2024 rizatriptan SUPERVISOR SEWING ROOM (MAXALT-SUPERVISOR SEWING ROOM) 10 mg disintegrating tablet Take 1 tablet (10 mg total) by mouth as needed 03/09/2024 Ubrelvy 50 mg tablet TAKE 1 TABLET BY MOUTH ONCE A SINGLE DOSE MAY REPEAT ONCE IN >=2 HOURS AFTER FIRST DOSE IF NEEDED 12/04/2023 documented as of this encounter Discharge Disposition Disposition Code Departure Means Destination Discharge to home or self care documented in this encounter Progress Notes * Vishal Garza, BIOMEDICAL MANAGER - 03/10/2024 2:00 PM CDT Patient Name: Marnie Roque : 1965 Today's Date: 03/10/2024 PCP: René Smallwood MD Referring: Olegario Adair* Chief Complaint Patient presents with Follow-up Knee Pain Med Management Patient presents for f/u for med refill . Pain is the same since last visit. Pain to bilateral knees, . Taking Oxycodone, which provides 60-65% pain relief. HPI Patient returned complaints of ongoing chronic bilateral knee pain. Pain varies from stabbing to sharp and is present on a daily basis. Pain certainly affects her activities of daily living and her mobility. She is actually restricted significantly with her activities of daily living due to her pain. Currently pain rated 8 on 10 scale. She is denying developing paresthesia or developing weaknessin lower extremities. In the past she has been taking Percocet 5/325 with benefit. Medication helpsby approximately 60-65% without adverse side effects. In addition she reports suffering from chronic right shoulder pain. She initially had complaints ofthis condition 3 months prior. Since then she has been doing aggressive at home therapy and has obtain radiographs. 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 In the past we have recommended orthopedic referral and MRI. Apparently MRI order is still under review by her insurance company. Patient denies knowledge of reason for delay. Allergies Allergen Reactions Naproxen Nausea And Vomiting [...] date: 05/27/1994 Quit date: 12/11/2017 Years since quittin.2 Smokeless tobacco: Never Substance and Sexual Activity Drug use: No Sexual activity: Defer Alcohol Use: Unknown (04/24/2022) AUDIT-C Frequency of Alcohol Consumption: Monthly or less Average Number of Drinks: Not on file Frequency of Binge Drinking: Not on file Family History Problem Relation Age of Onset Arthritis Other Mental illness Other Cancer Maternal Grandmother HOME MEDICATIONS : propranolol LA (INDERAL LA) 80 mg 24 hr capsule rizatriptan (MAXALT) 5 mg tablet rizatriptan SUPERVISOR SEWING ROOM (MAXALT-SUPERVISOR SEWING ROOM) 10 mg disintegrating tablet alendronate (FOSAMAX) 70 mg tablet ALPRAZolam (XANAX) 0.25 mg tablet levothyroxine (SYNTHROID) 100 mcg tablet naloxone (NARCAN) 4 mg/actuation spray,non-aerosol oxyCODONE-acetaminophen (PERCOCET) 7.5-325 mg per tablet oxyCODONE-acetaminophen (PERCOCET) 7.5-325 mg per tablet Ubrelvy 50 mg tablet Review of Systems Review [...] Hematological: Negative. Psychiatric/Behavioral: Negative. Physical Exam Vitals: 03/10/24 1423 BP: 127/80 Pulse: 61 Resp: 18 SpO2: 96% There is no height or weight on [...] to 9 is higher risk ofopioid misuse) [place] Prescription Drug Monitoring Reviewed and was consistent with office guidelines and policies. Most recent Urine Toxicology findings reviewed. 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 We continue to recommend MRI unfortunately orders are still under review by patient's insurance company. Encouraged patient to inquire with her insurance company as to what can be done to facilitate approval process. She continues to suffer from ongoing chronic [...] using M*Modal dictation. There may be some youth manager variances which are not appreciated or corrected in this note. documented in this encounter Plan of Treatment Not on file documented as of this encounter Visit Diagnoses Diagnosis Saphenous nerve neuropathy, left- Primary Peroneal neuropathy at knee, left Chronic pain of both knees documented in this encounter Discontinued Medications Medication Sig Discontinue Reason Start Date End Da te oxyCODONE-acetaminophen (PERCOCET) 7.5-325 mg per tabletIndications:Pain Take 1 tablet by mouth every 6 (six) hours as needed for pain Therapy completed 01/24/2024 03/10/2024 documented as of this encounter Historical Medications * This list may reflect changes made after this encounter. propranolol LA (INDERAL LA) 80 mg 24 hr capsule Take 1 capsule (80 mg total) by mouth daily 03/06/2024 rizatriptan (MAXALT) 5 mg tablet Take 1 tablet (5 mg total) by mouth as needed 03/06/2024 rizatriptan SUPERVISOR SEWING ROOM (MAXALT-SUPERVISOR SEWING ROOM) 10 mg disintegrating tablet Take 1 tablet (10 mg total) by mouth as needed 03/09/2024 added in this encounter Care Teams Career Counselor Relationship Specialty Start Date End Date René Smallwood MD PCP - General Family Medicine 02/11/20 René Smallwood MD Family Medicine 02/11/20 documented as of this encounter
--- OUTSIDE RECORDS SUMMARY | 2024-05-11 17:33 | XMS_ITS | Encounter Summary ---
Author Organization [facility] Healthcare Address [address] [place] [address] Care Team Providers Care Automation Machine Operator Name Role Phone René Smallwood MD Primary Care Provider [phone] René Smallwood MD Unavailable [phone] Reason for Visit * Reason Onset Date Comments MRI order 11/07/2023 Encounter Details Date Type Department Care Team (Late st Contact Info) Description 11/07/2023 Telephone [facility] [address] [place] [address] Vishal Garza INTERACTIVE DIGITAL MEDIA SPECIALIST [address] [facility] [address] [place] [address] MRI order Social History Tobacco Use Types Packs/Day Years [...] on file 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 Pt would like it to [facility]. Sent the order, Shana notified pt that we will call her withthe authorization. Faxed the order to [facility]. Refaxed the order to [facility] per pt request. documented in this encounter Plan of Treatment Not on file documented as of this encounter Visit Diagnoses Diagnosis Acute pain of right shoulder- Primary Chronic pain syndrome documented in this encounter Care Teams Automation Machine Operator Relationship Specialty Start Date End Date René Smallwood MD PCP - General Family Medicine 02/11/20 René Smallwood MD Family Medicine 02/11/20 documented as of this encounter
--- OUTSIDE RECORDS SUMMARY | 2024-05-11 17:33 | XMS_ITS | Encounter Summary ---
Author Organization [facility] Address [address] [facility] [address] [place] [address] Care Team Providers Care Tar Processing Technician Name Role Phone René Smallwood MD Primary Care Provider [phone] René Smallwood MD Unavailable [phone] Reason for Visit * Reason Comments Knee Pain Bilateral knees Encounter Details Date Type Department Care Team (Latest Contact Info) Description 11/21/2021 2:00 PM CDT Office Visit [facility] Pain Management at [address] [address] Vishal Garza RECREATION ATTENDANT SUPERVISOR [address] [place] [address] Chronic pain syndrome (Primary Dx); Complex regional pain syndrome type 1 of both lower extremities; Chronic pain of both knees; Chronic postoperative pain Social History Tobacco Use Types Packs/Day Years Used Date Smoking Tobacco: Former Cigarettes 0.3 23.5 0 05/27/1994 - 12/11/2017 Smokeless Tobacco: Never Alcohol Use Standard Drinks/Week Comments Yes 0 (1 standard drink = 0.6 oz pur e alcohol) social Comments No Sex and Gender Information Value Date Recorded Sex Assigned at Not on file 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 Gender Identity Not on file Sexual Orientation Not on file Occupation Industry Job Start Date Job End Date unemployed/disability Not on file Not on file Not on file documented as of this encounter Last Filed Vital Signs Vital Sign Reading Time Taken Comments Blood Pressure 132/61 11/21/2021 2:24 PM CDT Pulse 81 11/21/2021 2:24 PM CDT Temperature - - Respiratory Rate - - Oxygen Saturation 96% 11/21/2021 2:24 PM CDT Inhaled Oxygen Concentration - - Weight 76.2 kg (168 lb 1.6 oz) 11/21/2021 2:24 P M CDT Height 154.9 cm (5' 0.98 ) 11/21/2021 2:24 PM CD T Body Mass Index 31.78 11/21/2021 2:24 PM CDT documented in this encounter Ordered Prescriptions Prescription Sig Dispense Quantity Refills Last Filled Start Date End Date oxyCODONE-acetamin ophen (PERCOCET) 5-325 mg per tabletIndications: Pain Take 1 tablet by mouth every 8 (eight) hours as needed for pain 90 tablet 12/23/2021 01/11/2022 oxyCODONE-acetamin ophen (PERCOCET) 5-325 mg per tabletIndications: Pain Take 1 tablet by mouth every 8 (eight) hours as needed for pain 90 tablet 11/23/2021 12/23/2021 documented in this encounter Progress Notes * Vishal Garza, RECREATION ATTENDANT SUPERVISOR - 11/21/2021 2:00 PM CDT Patient Name: Marnie Roque : 1965 Today's Date: 11/22/2021 PCP: René Smallwood MD Referring: René Smallwood MD Chief Complaint Patient presents with ??? Knee Pain Bilateral knees HPI Patient returned with complaints of bilateral knee pain. Pain described as crushing and stabbing. Pain is rated 9 on 10 scale. Pain utilizes her oxycodone for pain which helps reduce her symptomatology a fair degree but does not last long enough. She recently consulted a orthopedist in [place].Since last visit she did consult the orthopedist in [facility] who gave her surgical options but no guarantees regarding her chronic pain that she suffers. She is hesitant to pursue any type of surgical intervention at the present time. In the meantime she is requesting refill on her medication. She discontinue the BuSpar due to ineffectiveness and difficulty in getting the film to dissolve in her oral mucosa. She wishes to simply continue with the oxycodone. No Known Allergies Past Medical History: Diagnosis [...] ??? Cancer Maternal Grandmother HOME MEDICATIONS : ALPRAZolam (XANAX) 0.25 mg tablet buprenorphine HCL (Belbuca) 150 mcg film diazePAM (VALIUM) 5 mg tablet levothyroxine sodium (TIROSINT) 112 mcg capsule oxyCODONE-acetaminophen (PERCOCET) 5-325 mg per tablet topiramate (TOPAMAX) 50 mg tablet oxyCODONE-acetaminophen (PERCOCET) 5-325 mg per tablet oxyCODONE-acetaminophen (PERCOCET) 5-325 mg per tablet Review of Systems Review [...] Hematological: Negative. Psychiatric/Behavioral: Negative. Physical Exam Vitals: 11/21/21 1424 BP: 132/61 BP Location: Right arm Patient Position: Sitting Pulse: 81 SpO2: 96% Weight: 76.2 kg (168 lb 1.6 oz) Height: 154.9 cm (5' 0.98 ) Body mass index is 31.78 kg/m??. Physical Exam Vitals and nursing note [...] normal. Judgment: Judgment normal. Assessment Problem List Musculoskeletal and Injuries Chronic pain of both knees Relevant Medications oxyCODONE-acetaminophen (PERCOCET) 5-325 mg per tablet (Start on 11/23/2021) oxyCODONE-acetaminophen (PERCOCET) 5-325 mg per tablet (Start on 12/23/2021) Neuro Complex regional pain syndrome type 1 of both lower extremities Relevant Medications oxyCODONE-acetaminophen (PERCOCET) 5-325 mg per tablet (Start on 11/23/2021) oxyCODONE-acetaminophen (PERCOCET) 5-325 mg per tablet (Start on 12/23/2021) Chronic postoperative pain Relevant Medications oxyCODONE-acetaminophen (PERCOCET) 5-325 mg per tablet (Start on 11/23/2021) oxyCODONE-acetaminophen (PERCOCET) 5-325 mg per tablet (Start on 12/23/2021) Plan Pre-hypertension/Hypertension: The patient has been informed [...] try weight loss and exercise for management. Options are limited to medication management as she explore his various orthopedic options that may not be available regarding her chronic bilateral knee pain. Plan is to discontinue the Belbuca. We will continue with the oxycodone 5/325 to be taken t.i.d. p.r.n. for moderate to severe pain. Currently no indication of inappropriate use of her medication is observed. We will follow up with her in 2 months, sooner if necessary. Goals of Treatment: Treat underlying pathology, improve [...] using M*Modal dictation. There may be some track layer variances which are not appreciated or corrected in this note. documented in this encounter Plan of Treatment Not on file documented as of this encounter Visit Diagnoses Diagnosis Chronic pain syndrome- Primary Complex regional pain syndrome type 1 of both lower extremities Chronic pain of both knees Chronic postoperative pain Other chronic postoperative pain documented in this encounter Discontinued Medications Medication Sig Discontinue Reason Start Date End Da te oxyCODONE-acetaminophen (PERCOCET) 5-325 mg per tabletIndications:Pain Take 1 tablet by mouth 2 (two) times a day as needed for pain Reorder 10/23/2021 11/21/2021 documented as of this encounter Care Teams Tar Processing Technician Relationship Specialty Start Date End Date René Smallwood MD PCP - General Family Medicine 02/11/20 René Smallwood MD Family Medicine 02/11/20 documented as of this encounter
--- OUTSIDE RECORDS SUMMARY | 2024-05-11 17:33 | XMS_ITS | Encounter Summary ---
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 Since her last visit where she was suffering from acute right shoulder pain, she is exhausted at home exercise rest and activity modification in an attempt to improve her right shoulder. She has been doing shoulder range of motion exercises without any noted improvement.Continues to suffer from significant right shoulder pain. Pain rated 7 on 10 scale. Limited range of motion which is quite painful. As result we will order a right shoulder MRI with findings to dictate future plan of care which will likely include orthopedic referral. documented in this encounter Plan of Treatment Not on file documented as of this encounter Visit Diagnoses Not on filedocumented in this encounter Care Teams Dry Clipper Tender Relationship Specialty Start Date End Date René Smallwood MD PCP - General Family Medicine 02/11/20 René Smallwood MD Family Medicine 02/11/20 documented as of this encounter
--- OUTSIDE RECORDS SUMMARY | 2024-05-11 17:33 | XMS_ITS | Encounter Summary ---
Author Organization [facility] Healthcare Address [address] [place] [address] Care Team Providers Care Patient Relations Liaison Name Role Phone René Smallwood MD Primary Care Provider [phone] René Smallwood MD Unavailable [phone] Reason for Visit * Reason Comments Follow-up Encounter Details Date Type Department Care Team (Late st Contact Info) Description 08/06/2023 2:30 PM CDT Office Visit [facility] Pain Management at [address] [address] Vishal Garza, WASTEWATER TECHNICIAN [address] [place] [address] Chronic pain of both knees (Primary Dx); Chronic pain syndrome Social History Tobacco Use Types Packs/Day Years [...] on file Legal Sex Female 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 Gender Identity Not on file Sexual Orientation Not on file Occupation Industry Job Start Date Job End Date unemployed/disability Not on file Not on file Not on file documented as of this encounter Last Filed Vital Signs Vital Sign Reading Time Taken Comments Blood Pressure 143/101 08/06/2023 2:41 PM CDT Pulse 91 08/06/2023 2:41 PM CDT Temperature - - Respiratory Rate - - Oxygen Saturation 95% 08/06/2023 2:41 PM CDT Inhaled Oxygen Concentration - - Weight - - Height 154.9 cm (5' 0.98 ) 08/06/2023 2:41 PM CD T Body Mass Index - - documented in this encounter Progress Notes * Vishal Garza NP - 08/06/2023 2:30 PM CDT Patient Name: Marnie Roque : 1965 Today's Date: 08/06/2023 PCP: René Smallwood MD Referring: Vishal Garza [...] She is requesting refill of her medication Allergies Allergen Reactions Naproxen Nausea And Vomiting [...] spray,non-aerosol oxyCODONE-acetaminophen (PERCOCET) 7.5-325 mg per tablet Review [...] Hematological: Negative. Psychiatric/Behavioral: Negative. Physical Exam Vitals: 08/06/23 1441 BP: (!) 143/101 Pulse: 91 SpO2: 95% Weight: Comment: patient refused Height: 154.9 cm [...] is higher risk ofopioid misuse) [place] and [place] Prescription Drug Monitoring Reviewed and was consistent [...] using M*Modal dictation. There may be some buffing wheel former automatic variances which are not appreciated or corrected in this note. documented in this encounter Plan of Treatment Not on file documented as of this encounter Visit Diagnoses Diagnosis Chronic pain of both knees- Primary Chronic pain syndrome documented in this encounter Care Teams Patient Relations Liaison Relationship Specialty Start Date End Date René Smallwood MD PCP - General Family Medicine 02/11/20 René Smallwood MD Family Medicine 02/11/20 documented as of this encounter
--- OUTSIDE RECORDS SUMMARY | 2024-05-11 17:33 | XMS_ITS | Encounter Summary ---
Author Organization [facility] Address [address] [facility] [address] [place] [address] Care Team Providers Care Claim Technician Name Role Phone René Smallwood MD Primary Care Provider [phone] René Smallwood MD Unavailable [phone] Reason for Visit * Reason Comments Follow-up Encounter Details Date Type Department Care Team (Late st Contact Info) Description 12/18/2022 1:30 PM CDT Office Visit [facility] Pain Management at [address] [address] Vishal Garza TRACTOR SWEEPER OPERATOR [id number] [place] [address] Chronic pain of both knees (Primary Dx); Complex regional pain syndrome type 1 of both lower extremities; retirement (current) use of opiate analgesic; Chronic pain syndrome Social History Tobacco Use [...] on file 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 Gender Identity Not on file Sexual Orientation Not on file Occupation Industry Job Start Date Job End Date unemployed/disability Not on file Not on file Not on file documented as of this encounter Last Filed Vital Signs Vital Sign Reading Time Taken Comments Blood Pressure 147/89 12/18/2022 1:48 PM CDT Pulse 80 12/18/2022 1:48 PM CDT Temperature - - Respiratory Rate - - Oxygen Saturation 98% 12/18/2022 1:48 PM CDT Inhaled Oxygen Concentration - - Weight - - Height 154.9 cm (5' 0.98 ) 12/18/2022 1:48 PM CD T Body Mass Index - - documented in this encounter Ordered Prescriptions Prescription Sig Dispense Quantity Refills Last Filled Start Date End Date oxyCODONE-acetamin ophen (PERCOCET) 7.5-325 mg per tabletIndications: Pain Take 1 tablet by mouth every 6 (six) hours as needed for pain 120 tablet 01/24/2023 02/12/2023 oxyCODONE-acetamin ophen (PERCOCET) 7.5-325 mg per tabletIndications: Pain Take 1 tablet by mouth every 6 (six) hours as needed for pain 120 tablet 12/25/2022 02/12/2023 documented in this encounter Progress Notes * Vishal Garza, TRACTOR SWEEPER OPERATOR - 12/18/2022 1:30 PM CDT Patient Name: Marnie Roque : 1965 Today's Date: 12/18/2022 PCP: René Smallwood MD Referring: René Smallwood [...] spray,non-aerosol oxyCODONE-acetaminophen (PERCOCET) 5-325 mg per tablet topiramate [...] Hematological: Negative. Psychiatric/Behavioral: Negative. Physical Exam Vitals: 12/18/22 1348 BP: 147/89 BP Location: Right arm Patient Position: Sitting Pulse: 80 SpO2: 98% Weight: Comment: patient refused Height: 154.9 cm [...] Misuse Measure (COMM) reviewed with score of 3 (> or equal to 9 is higher risk ofopioid misuse) [place] and [place] Prescription Drug Monitoring Reviewed and was consistent with office guidelines and policies. Most recent Urine Toxicology findings reviewed. 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 We will provide patient with a peripheral nerve stim brochure for further review as we continue to encourage her to pursue this trial as an option. Goals of Treatment: Treat underlying pathology, [...] using M*Modal dictation. There may be some learning disabled teacher variances which are not appreciated or corrected in this note. 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
--- OUTSIDE RECORDS SUMMARY | 2024-05-11 17:33 | XMS_ITS | Encounter Summary ---
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 Gender Identity Not on file Sexual Orientation Not on file Occupation Industry Job Start Date Job End Date unemployed/disability Not on file Not on file Not on file documented as of this encounter Discharge Disposition Disposition Code Departure Means Destination Discharge to home or self care documented in this encounter Plan of Treatment Not on file documented as of this encounter Procedures Procedure Name Priority Date/Time Associated Diagnosis Comments MRSA ONLY (STAPHYLOCOCCUS AUREUS) CULTURE Routine 01/15/2022 2:06 PM CDT documented in this encounter Results * MRSA Only (Staphylococcus aureus) Culture Nasal (01/15/2022 2:06 PM CDT) Report Final Report: Negative VINICIO LYON (MICHELE) Comment:Testing performed by : [facility], [address] [facility], [place]., [address] Nasal 01/15/2022 2:06 PM CDT 01/15/2022 11:33 PM CDT Narrative VINICIO LYON (MICHELE) - 01/17/2022 7:01 AM CDT Testing performed by [facility] Microbiology Laboratory ([phone]). us D Alejo Navas MD LAB MICROBIOLOGY - GENERAL ORD ERABLES Final Result VINICIO LYON (MICHELE) [address] [facility] Department [place] [address] documented in this encounter Visit Diagnoses Not on filedocumented in this encounter Care Teams Mobility Developer Relationship Specialty Start Date End Date René Smallwood MD PCP - General Family Medicine 02/11/20 René Smallwood MD Family Medicine 02/11/20 documented as of this encounter
--- OUTSIDE RECORDS SUMMARY | 2024-05-11 17:33 | XMS_ITS | Encounter Summary ---
Author Organization 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
--- OUTSIDE RECORDS SUMMARY | 2024-05-11 17:33 | XMS_ITS | Encounter Summary ---
Author Organization [facility] Address [address] [facility] [address] [place] [address] Care Team Providers Care Inspector Aluminum Boat Name Role Phone René Smallwood MD Primary Care Provider [phone] René Smallwood MD Unavailable [phone] Reason for Visit * Reason Comments Follow-up Bilateral knee pain Encounter Details Date Type Department Care Team (Latest Contact Info) Description 02/27/2022 1:00 PM CDT Office Visit [facility] Pain Management at [address] [address] Vishal Garza DIFFUSION OPERATOR [id number] [place] [address] Chronic pain of both knees (Primary Dx); 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; Complex regional pain syndrome type 1 of both lower extremities; Chronic postoperative pain; Chronic pain syndrome Social History Tobacco Use [...] on file 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 Gender Identity Not on file Sexual Orientation Not on file Occupation Industry Job Start Date Job End Date unemployed/disability Not on file Not on file Not on file documented as of this encounter Last Filed Vital Signs Vital Sign Reading Time Taken Comments Blood Pressure 141/87 02/27/2022 1:08 PM CDT Pulse 85 02/27/2022 1:08 PM CDT Temperature - - Respiratory Rate - - Oxygen Saturation 97% 02/27/2022 1:08 PM CDT Inhaled Oxygen Concentration - - Weight 85.8 kg (189 lb 3.2 oz) 02/27/2022 1:08 P M CDT Height 154.9 cm (5' 0.98 ) 02/27/2022 1:08 PM CD T Body Mass Index 35.77 02/27/2022 1:08 PM CDT documented in this encounter Ordered Prescriptions Prescription Sig Dispense Quantity Refills Last Filled Start Date End Date oxyCODONE-acetamin ophen (PERCOCET) 5-325 mg per tabletIndications: Pain Take 1 tablet by mouth 2 (two) times a day as needed for pain 60 tablet 03/22/2022 2 oxyCODONE myristate (Xtampza ER) 9 mg capsule,sprinkle,E R 12hr tmprrIndications:s evere chronic pain requiring long-term opioid treatment Take 1 capsule by mouth every 12 (twelve) hours 60 capsule 03/29/2022 2 oxyCODONE myristate (Xtampza ER) 9 mg capsule,sprinkle,E R 12hr tmprrIndications:s evere chronic pain requiring long-term opioid treatment Take 1 capsule by mouth every 12 (twelve) hours 60 capsule 02/27/2022 2 documented in this encounter Progress Notes * Vishal Garza, DIFFUSION OPERATOR - 02/27/2022 1:00 PM CDT Patient Name: Marnie Roque : 1965 Today's Date: 02/27/2022 PCP: René Smallwood MD Referring: René Smallwood MD Chief Complaint Patient presents with Follow-up Bilateral knee pain HPI Patient returning for follow-up visit. She continues to endorse bilateral knee pain left greater than right. She recently had surgical intervention on the right knee to improve its alignment. She continues to participate in physical therapy in and has noted some improvement since her last visit. Pain currently rated 8 on 10 scale bilaterally. Patient continues with her Percocet 5/325 in takes typically 2 per day with benefit. Medication decreases her symptoms by approximately 50%. She reports that medication simply does not last long enough. Regardless she is very conservative with the use of her medication. She denies side effects. No Known Allergies Past Medical History: Diagnosis Date Anxiety Arthritis [...] use: No Sexual activity: Defer Alcohol Use: Not on file Family History Problem Relation Age of Onset Arthritis Other Mental illness Other Cancer Maternal Grandmother HOME MEDICATIONS : levothyroxine sodium (TIROSINT) 112 mcg capsule oxyCODONE-acetaminophen (PERCOCET) 5-325 mg per tablet ALPRAZolam (XANAX) 0.25 mg tablet buprenorphine HCL (Belbuca) 150 mcg film diazePAM (VALIUM) 5 mg tablet topiramate (TOPAMAX) 50 mg tablet Review of Systems Review of Systems Musculoskeletal: Positive for arthralgias, gait problem, joint swelling and myalgias. Physical Exam Vitals: 02/27/22 1308 BP: 141/87 BP Location: Right arm Patient Position: Sitting Pulse: 85 SpO2: 97% Weight: 85.8 kg (189 lb 3.2 oz) Height: 154.9 cm (5' 0.98 ) Body mass index is 35.77 kg/m??. Physical Exam Vitals and nursing note [...] restricted at endranges of motion guarding noted. Guarded gait was observed during encounter. Skin: General: Skin is warm and dry. Neurological: General: No focal deficit present. Mental Status: She is alert and oriented to person, place, and time. Sensory: No sensory deficit. Motor: No weakness or abnormal muscle tone. Coordination: Coordination normal. Gait: Gait abnormal. Deep Tendon Reflexes: Reflexes normal. Psychiatric: Mood and Affect: Mood normal. Behavior: Behavior normal. Thought Content: Thought content normal. Judgment: Judgment normal. Assessment Problem List Mental Health [facility] (current) use of opiate analgesic Musculoskeletal and Injuries Chronic pain of both knees - Primary Plan Pre-hypertension/Hypertension: The patient has [...] try weight loss and exercise for management. Medication is effective but simply does not last long enough for this patient. She experiences painthroughout the day and often at night as well creating some difficulty with sleep. Therefore we will transition to xtampza 9 mg capsule to be taken q.12 hours. In addition she is to use the remainderof her medication b.i.d. p.r.n. for moderate to severe breakthrough pain. We will then refill her oxycodone 5 mg capsules in late January to be utilized b.i.d. p.r.n. for breakthrough pain and continue with the xtampza 9 mg capsules q.12 hours scheduled. Follow-up in 2 months or sooner if needed. This dictation was performed using M*Modal dictation. There may be some underground mine machinery mechanic variances which are not appreciated or corrected in this note. documented in this encounter Plan of Treatment Not on file documented as of this encounter Visit Diagnoses Diagnosis Chronic pain of both knees- Primary [facility] (current) use of opiate analgesic Complex regional pain syndrome type 1 of both lower extremities Chronic postoperative pain Other chronic postoperative pain Chronic pain syndrome documented in this encounter Discontinued Medications Medication Sig Discontinue Reason Start Date End Da te oxyCODONE-acetaminophen (PERCOCET) 5-325 mg per tabletIndications:Pain Take 1-2 tablets by mouth every 4 (four) hours as needed for pain. 04/11/2018 06/10/2018 oxyCODONE-acetaminophen (PERCOCET) 5-325 mg per tabletIndications:Pain Take 1-2 tablets by mouth every 4 (four) hours as needed for pain. 06/25/2018 08/24/2018 oxyCODONE-acetaminophen (PERCOCET) 5-325 mg per tabletIndications:Pain Take 1-2 tablets by mouth every 4 (four) hours as needed for pain 09/03/2018 11/02/2018 oxyCODONE-acetaminophen (PERCOCET) 5-325 mg per tabletIndications:Pain Take 1 tablet by mouth 2 (two) times a day as needed for pain 05/10/2021 06/09/2021 oxyCODONE-acetaminophen (PERCOCET) 5-325 mg per tabletIndications:Pain Take 1 tablet by mouth 2 (two) times a day as needed for pain 07/13/2021 08/12/2021 oxyCODONE-acetaminophen (PERCOCET) 5-325 mg per tabletIndications:Pain Take 1 tablet by mouth 2 (two) times a day as needed for pain 08/11/2021 09/10/2021 oxyCODONE-acetaminophen (PERCOCET) 5-325 mg per tabletIndications:Pain Take 1 tablet by mouth every 8 (eight) hours as needed for pain 11/23/2021 12/23/2021 oxyCODONE-acetaminophen (PERCOCET) 5-325 mg per tabletIndications:Pain Take 1 tablet by mouth every 8 (eight) hours as needed for pain 01/21/2022 02/20/2022 oxyCODONE-acetaminophen (PERCOCET) 5-325 mg per tabletIndications:Pain Take 1 tablet by mouth every 8 (eight) hours as needed for pain Reorder 02/20/2022 02/27/2022 documented as of this encounter Care Teams Inspector Aluminum Boat Relationship Specialty Start Date End Date René Smallwood MD PCP - General Family Medicine 02/11/20 René Smallwood MD Family Medicine 02/11/20 documented as of this encounter
--- OUTSIDE RECORDS SUMMARY | 2024-05-11 17:33 | XMS_ITS | Encounter Summary ---
Author Organization [facility] Address [address] [facility] [address] [place] [address] Care Team Providers Care Evaporator Supervisor Name Role Phone René Smallwood MD Primary Care Provider [phone] René Smallwood MD Unavailable [phone] Reason for Visit * Reason Comments Follow-up Encounter Details Date Type Department Care Team (Latest Contact Info) Description 10/16/2022 1:30 PM CDT Office Visit [facility] Pain Management at [address] [address] Vishal Garza FOOTWEAR SALES REPRESENTATIVE [address] [place] [address] Chronic pain of both knees (Primary Dx); 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; Chronic pain syndrome; Complex regional pain syndrome type 1 of both lower extremities; Chronic postoperative pain Social History Tobacco Use [...] on file 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 Gender Identity Not on file Sexual Orientation Not on file Occupation Industry Job Start Date Job End Date unemployed/disability Not on file Not on file Not on file documented as of this encounter Last Filed Vital Signs Vital Sign Reading Time Taken Comments Blood Pressure 128/87 10/16/2022 1:46 PM CDT Pulse 93 10/16/2022 1:46 PM CDT Temperature - - Respiratory Rate - - Oxygen Saturation 94% 10/16/2022 1:46 PM CDT Inhaled Oxygen Concentration - - Weight 83.5 kg (184 lb) 10/16/2022 1:46 PM CDT Height 154.9 cm (5' 0.98 ) 10/16/2022 1:46 PM CD T Body Mass Index 34.78 10/16/2022 1:46 PM CDT documented in this encounter Ordered Prescriptions Prescription Sig Dispense Quantity Refills Last Filled Start Date End Date naloxone (NARCAN) 4 mg/actuation spray,non-aerosol Administer 1 spray into affected nostril(s) as needed for opioid reversal or respiratory depression Call 911. Administer a single spray in one nostril. Repeat every 3 minutes as needed if no or minimal response. 1 each 1 10/16/2022 oxyCODONE-acetamin ophen (PERCOCET) 5-325 mg per tabletIndications: Pain Take 1 tablet by mouth every 6 (six) hours as needed for pain 120 tablet 10/24/2022 3 oxyCODONE-acetamin ophen (PERCOCET) 5-325 mg per tabletIndications: Pain Take 1 tablet by mouth every 6 (six) hours as needed for pain 120 tablet 11/23/2022 3 documented in this encounter Progress Notes * Vishal Garza, FOOTWEAR SALES REPRESENTATIVE - 10/16/2022 1:30 PM CDT Patient Name: Marnie Roque : 1965 Today's Date: 10/16/2022 PCP: René Smallwood MD Referring: René Smallwood MD Chief Complaint Patient presents with Follow-up HPI Patient returned with ongoing complaints of chronic bilateral knee pain. Pain is stabbing and sharpin bilateral. Weight-bearing activity obviously makes her condition worse. Her pain is rated 8 on 10 scale. Overall no change in her condition or her mobility and function since her last visit. She continues with the oxycodone 5/325 as directed with benefit. Medication helps by a reported 65%. Allergies Allergen Reactions Naproxen Nausea And Vomiting [...] Neurological: Negative for weakness. Physical Exam Vitals: 10/16/22 1346 BP: 128/87 BP Location: Right arm Patient Position: Sitting Pulse: 93 SpO2: 94% Weight: 83.5 kg (184 lb) Height: 154.9 cm (5' 0.98 ) [...] Judgment normal. 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 She isprovided 1st and final warning with regards to adhering to our prescribing guidelines. We will continue with the oxycodone 5/325 to be taken Q 6 hours [...] using M*Modal dictation. There may be some hand bootmaker variances which are not appreciated or corrected in this note. 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 Chronic pain syndrome Complex regional pain syndrome type 1 of both lower extremities Chronic postoperative pain Other chronic postoperative pain documented in this encounter Discontinued Medications Medication Sig Discontinue Reason Start Date End Da te oxyCODONE-acetaminophen (PERCOCET) 5-325 mg per tabletIndications:Pain Take 1 tablet by mouth every 6 (six) hours as needed for pain 09/24/2022 10/16/2022 oxyCODONE-acetaminophen (PERCOCET) 5-325 mg per tabletIndications:Pain Take 1 tablet by mouth every 6 (six) hours as needed for pain 08/24/2022 10/16/2022 documented as of this encounter Care Teams Evaporator Supervisor Relationship Specialty Start Date End Date René Smallwood MD PCP - General Family Medicine 02/11/20 René Smallwood MD Family Medicine 02/11/20 documented as of this encounter
--- OUTSIDE RECORDS SUMMARY | 2024-05-11 17:33 | XMS_ITS | Encounter Summary ---
Author Organization [facility] Address [address] [facility] [address] [place] [address] Care Team Providers Care Nurse Administrator Name Role Phone René Smallwood MD Primary Care Provider [phone] René Smallwood MD Unavailable [phone] Reason for Visit * Reason Comments Follow-up Med refill Encounter Details Date Type Department Care Team (Latest Contact Info) Description 06/19/2022 2:30 PM TELEPHONE CLAIMS REPRESENTATIVE Office Visit [facility] Pain Management at [address] [address] [place] [address] [place] [address] intermediate (current) use of opiate analgesic (Primary Dx); Chronic postoperative pain; Chronic pain syndrome; Chronic pain of both knees; Complex regional pain syndrome type 1 of both lower extremities Social History Tobacco Use Types Packs/Day Years [...] on file Legal Sex Female 11:20 AM TELEPHONE CLAIMS REPRESENTATIVE Gender Identity Not on file Sexual Orientation Not on file Occupation Industry Job Start Date Job End Date unemployed/disability Not on file Not on file Not on file documented as of this encounter Last Filed Vital Signs Vital Sign Reading Time Taken Comments Blood Pressure 145/92 06/19/2022 2:32 PM TELEPHONE CLAIMS REPRESENTATIVE Pulse 74 06/19/2022 2:32 PM TELEPHONE CLAIMS REPRESENTATIVE Temperature - - Respiratory Rate - - Oxygen Saturation 97% 06/19/2022 2:32 PM TELEPHONE CLAIMS REPRESENTATIVE Inhaled Oxygen Concentration - - Weight 83.5 kg (184 lb) 06/19/2022 2:32 PM TELEPHONE CLAIMS REPRESENTATIVE Height 154.9 cm (5' 0.98 ) 06/19/2022 2:32 PM CS T Body Mass Index 34.78 06/19/2022 2:32 PM TELEPHONE CLAIMS REPRESENTATIVE documented in this encounter Ordered Prescriptions Prescription Sig Dispense Quantity Refills Last Filled Start Date End Date oxyCODONE-acetamin ophen (PERCOCET) 5-325 mg per tabletIndications: Pain Take 1 tablet by mouth every 6 (six) hours as needed for pain 120 tablet 07/23/2022 08/14/2022 oxyCODONE-acetamin ophen (PERCOCET) 5-325 mg per tabletIndications: Pain Take 1 tablet by mouth every 6 (six) hours as needed for pain 120 tablet 06/23/2022 08/14/2022 documented in this encounter Progress Notes * Vishal Garza, AUTOMOBILE UPHOLSTERY TRIM INSTALLER - 06/19/2022 2:30 PM CST Patient Name: Marnie Roque : 1965 Today's Date: 06/19/2022 PCP: René Smallwood MD Referring: René Smallwood MD Chief Complaint Patient presents with Follow-up Med refill HPI Patient returned with ongoing complaints of chronic bilateral knee pain. She reports improvement with her knee from the recent orthopedic surgery as there is better alignment but regarding symptomatology there is no change. She continues to endorse pain level at 7 on 10 scale with quality pain sharp and stabbing and exacerbated with walking and standing. She attempted the xtampza and denies any significant notable benefit. She is return to the oxycodone and is tolerating it well without any reported side effects when questioned. She is denying any change in his symptomatology or decline in function. She is requesting refill. Allergies [...] 05/27/1994 Quit date: 12/11/2017 Years since quittin.5 Smokeless tobacco: Never Substance and Sexual Activity [...] Neurological: Negative for weakness. Physical Exam Vitals: 06/19/22 1432 BP: 145/92 BP Location: Right arm Patient Position: Sitting Pulse: 74 SpO2: 97% Weight: 83.5 kg (184 lb) Height: 154.9 [...] Judgment normal. Assessment Problem List Mental Health intermediate (current) use of opiate analgesic - Primary Musculoskeletal and Injuries Chronic pain of both knees Relevant Medications oxyCODONE-acetaminophen (PERCOCET) 5-325 mg per tablet (Start on 06/23/2022) oxyCODONE-acetaminophen (PERCOCET) 5-325 mg per tablet (Start on 07/23/2022) Neuro Complex regional pain syndrome type 1 of both lower extremities Relevant Medications oxyCODONE-acetaminophen (PERCOCET) 5-325 mg per tablet (Start on 06/23/2022) oxyCODONE-acetaminophen (PERCOCET) 5-325 mg per tablet (Start on 07/23/2022) Chronic postoperative pain Relevant Medications oxyCODONE-acetaminophen (PERCOCET) 5-325 mg per tablet (Start on 06/23/2022) oxyCODONE-acetaminophen (PERCOCET) 5-325 mg per tablet (Start on 07/23/2022) Chronic pain syndrome Relevant Medications oxyCODONE-acetaminophen (PERCOCET) 5-325 mg per tablet (Start on 06/23/2022) oxyCODONE-acetaminophen (PERCOCET) 5-325 mg per tablet (Start on 07/23/2022) Plan Pre-hypertension/Hypertension: The patient has been informed [...] activities of daily living and her mobility. We will continue with the oxycodone 5/325 to be taken Q 6 hours p.r.n. for moderate to severe pain. Thismaintains a degree of function and mobility for the patient. Review of documentation shows no evidence of inappropriate use of her medication. We will obtain urine toxicology screen, provided with 2 months of medication coverage and schedule her to follow-up at that time or sooner if needed. This dictation was performed using M*Modal dictation. There may be some marketing development manager variances which are not appreciated or corrected in this note. 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 terminal attack controller (current) use of opiate analgesic- Primary Chronic postoperative pain Other chronic postoperative pain Chronic pain syndrome Chronic pain of both knees Complex regional pain syndrome type 1 of both lower extremities documented in this encounter Discontinued Medications Medication Sig Discontinue Reason Start Date End Da te oxyCODONE-acetaminophen (PERCOCET) 5-325 mg per tabletIndications:Pain Take 1 tablet by mouth every 6 (six) hours as needed for pain Reorder 04/24/2022 06/19/2022 documented as of this encounter Care Teams Nurse Administrator Relationship Specialty Start Date End Date René Smallwood MD PCP - General Family Medicine 02/11/20 René Smallwood MD Family Medicine 02/11/20 documented as of this encounter
--- OUTSIDE RECORDS SUMMARY | 2024-05-11 17:33 | XMS_ITS | Encounter Summary ---
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 11/19/2023 documented in this encounter Plan of Treatment Not on file documented as of this encounter Visit Diagnoses Not on filedocumented in this encounter Care Teams Heavy Duty Truck Mechanic Relationship Specialty Start Date End Date René Smallwood MD PCP - General Family Medicine 02/11/20 René Smallwood MD Family Medicine 02/11/20 documented as of this encounter
--- OUTSIDE RECORDS SUMMARY | 2024-05-11 17:33 | XMS_ITS | Referral Summary ---
Author Organization [facility] Address [address] [place] [address] Care Team Providers Care Data Examination Clerk Name Role Phone René Smallwood MD Primary Care Provider [phone] René Smallwood MD Unavailable [phone] Encounters Date Type Department Care Team Description 03/10/2024 2:00 PM CDT - 03/10/2024 11:59 PM CDT Hospital Encounter [facility] [address] [place] [address] Vishal Garza NP Saphenous nerve neuropathy, left (Primary Dx); Peroneal neuropathy at knee, left; Chronic pain of both knees Discharge Disposition: Discharge to home or self care from Last 3 Months Allergies Active Allergy Reactions Criticality Noted Date Comments Naproxen Nausea And Vomiting Low 11/03/2012 Medications ALPRAZolam (XANAX) 0.25 mg tablet Take 1 tab p.o. 1 hour prior to procedure. May take 1 additional tab p.o. 20-30 minutes prior to procedure if needed. Do not drive remainder of day. 2 tablet 05/10/20 21 Active Additional Information Patient not taking.Reported on 03/10/2024 alendronate (FOSAMAX) 70 mg tablet 70 MG ORALLY WEEKLY 06/27/19 23 Active naloxone (NARCAN) 4 mg/actuation spray,non-aerosol Administer 1 spray into affected nostril(s) as needed for opioid reversal or respiratory depression Call 911. Administer a single spray in one nostril. Repeat every 3 minutes as needed if no or minimal response. 1 each 1 10/17/19 Active levothyroxine (SYNTHROID) 100 mcg tablet Take 1 tablet (100 mcg total) by mouth daily 02/19/20 Active Ubrelvy 50 mg tablet TAKE 1 TABLET BY MOUTH ONCE A SINGLE DOSE MAY REPEAT ONCE IN >=2 HOURS AFTER FIRST DOSE IF NEEDED 12/04/19 Active rizatriptan SECURITIES COUNSELOR (MAXALT-SECURITIES COUNSELOR) 10 mg disintegrating tablet Take 1 tablet (10 mg total) by mouth as needed 03/09/20 Active rizatriptan (MAXALT) 5 mg tablet Take 1 tablet (5 mg total) by mouth as needed 03/06/20 Active propranolol LA (INDERAL LA) 80 mg 24 hr capsule Take 1 capsule (80 mg total) by mouth daily 03/06/20 Active oxyCODONE-acetamin ophen (PERCOCET) 7.5-325 mg per tabletIndications: Pain Take 1 tablet by mouth every 6 (six) hours as needed for pain 120 tablet 03/27/20 24 Active oxyCODONE-acetamin ophen (PERCOCET) 7.5-325 mg per tabletIndications: Pain Take 1 tablet by mouth every 6 (six) hours as needed for pain 120 tablet 04/26/20 24 024 Active Active Problems Problem Noted Date Diagnosed Date Chronic right shoulder pain 10/15/2023 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 10/26 Chronic pain of both knees 12/15/2020 Chronic pain syndrome 04/19/2020 Major depressive disorder, s franchesca episode, in full remission 04/19/2020 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 11/30/2019 Overview (11/30/2019): Added automatically from request for surgery [id number] Complex regional pain syndro me type 1 of both lower extremities 11/23/2019 Chronic postoperative pain 11/23/2019 Saphenous nerve neuropathy, 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, left 10/23/2019 Depression 06/17/2018 Hypothyroidism 06/17/2018 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 05/22/2018 Overview (05/22/2018): Added automatically from request for surgery [id number] Migraine 02/18/2018 Anxiety 02/18/2018 Failed total knee arthroplasty ([facility]) 018 Overview (01/13/2018): Added automatically from request for surgery [id number] Immunizations Name Administration Dates Next Due Tdap 05/01/2016 Social History Tobacco Use Types Packs/Day Years [...] on file Legal Sex Female 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 Gender Identity Not on file Sexual Orientation Not on file Occupation Industry Job Start Date Job End Date unemployed/disability Not on file Not on file Not on file Last Filed Vital Signs Vital Sign Reading Time Taken Comments Blood Pressure 127/80 03/10/2024 2:23 PM CDT Pulse 61 03/10/2024 2:23 PM CDT Temperature 36.6 ??C (97.8 ??F) 02/03/2021 7:37 AM CD T Respiratory Rate 18 03/10/2024 2:23 PM CDT Oxygen Saturation 96% 03/10/2024 2:23 PM CDT Inhaled Oxygen Concentration - - Weight 88.5 kg (195 lb) 02/12/2023 1:34 PM CDT Height 154.9 cm (5' 0.98 ) 10/15/2023 3:34 PM CD T Body Mass Index 36.86 02/12/2023 1:34 PM CDT Plan of Treatment Not on file Medical Devices Implanted Type Area Electrical Appliance Preparer Device Identifier Shelf Expiration Date Model / Serial / Lot Depuy [employer] 3122-040 Smartset Medium Viscosity Cement 40gm Bone Sterile - [id number] Implanted:Qty: 1 on 02/18/2018 by David Ba MD at [facility] [employer] [id number] 05/26/2019 3122-040 / / Depuy Orthopaed[employer] [id number] Attune 16mm 60mm Revision Press Fit Knee Stem Femoral Sterile Latex Free - [id number] Implanted:Qty: 1 on 02/18/2018 by David Ba MD at [facility] Right: Knee [employer] [id number] 09/24/2027 [id number] / / [id number] Depuy [employer] [id number] Revision Cement Constrain Knee Right 5 Component Femoral Attune - [id number] Implanted:Qty: 1 on 02/18/2018 by David Ba MD at [facility] Right: Knee [employer] [id number] 12/25/2027 [id number] / / [id number] Depuy Orth[employer] [id number] Attune H5 Mm Revision Cement Knee 3/4 Table Rock Augment Tibial Sterile Latex Free - [id number] Implanted:Qty: 1 on 02/18/2018 by David Ba MD at [facility] Right: Knee [employer] [id number] 09/24/2027 [id number] / / [id number] [employer] [id number] Attune 12mm Revision Constrain Rotate Platform Knee 5 Insert - [id number] Implanted:Qty: 1 on 02/18/2018 by David Ba MD at [facility] [employer] [id number] 05/26/2022 [id number] / / DepTeedot [employer] Inc [id number] Smartset Medium Viscosity Cement 40gm Bone Gentamicin - [id number] Implanted:Qty: 1 on 02/18/2018 by David Ba MD at [facility] [employer] [id number] 05/26/2019 [id number] / / Depuy [employer] [id number] Smartset Medium Viscosity Cement 40gm Bone Gentamicin - [id number] Implanted:Qty: 1 on 02/18/2018 by David Ba MD at [facility] [employer] [id number] 05/26/2019 [id number] / / Depuy [employer] [id number] Attune 8mm Revision Cement Knee Distal 5 Augment Femoral Sterile Latex Free - [id number] Implanted:Qty: 1 on 02/18/2018 by David Ba MD at [facility] Right: Knee [employer] [id number] 06/26/2027 [id number] / / [id number] [employer] [id number] Attune 8mm Revision Cement Knee Distal 5 Augment Femoral Sterile Latex Free - [id number] Implanted:Qty: 1 on 02/18/2018 by David Ba MD at [facility] Right: Knee [employer] [id number] 03/26/2027 [id number] / / [id number] [employer] [id number] Attune 4mm Revision Cement Knee Posterior 5 Augment Femoral Latex Free - [id number] Implanted:Qty: 1 on 02/18/2018 by David Ba MD at [facility] Right: Knee [employer] [id number] 08/25/2027 [id number] / / [id number] Depuy [employer] [id number] Attune Revision Cement Rotate Platform Knee 4 Baseplate Tibial - [id number] Implanted:Qty: 1 on 02/18/2018 by David Ba MD at [facility] Right: Knee [employer] [id number] 08/25/2027 [id number] / / [id number] Dep[employer] [id number] Attune Od12 Mm L60 Mm Revision Press Fit Knee Stem Femoral Sterile Latex Free - [id number] Implanted:Qty: 1 on 02/18/2018 by David Ba MD at [facility] Right: Knee [employer] [id number] 08/25/2027 [id number] / / [id number] [employer] [id number] Attune 8mm Revision Cement Knee Posterior 5 Augment Femoral Latex Free - [id number] Implanted:Qty: 1 on 02/18/2018 by David Ba MD at [facility] Right: Knee [employer] [id number] 01/25/2028 [id number] / / [id number] [employer] [id number] Attune 4mm Revision Cement Knee Posterior 5 Augment Femoral Latex Free - [id number] Implanted:Qty: 1 on 06/19/2018 by David Ba MD at [facility] Left: Knee [employer] [id number] 12/25/2027 [id number] / / [id number] [employer] [id number] Attune 4mm Revision Cement Knee Posterior 5 Augment Femoral Latex Free - [id number] Implanted:Qty: 1 on 06/19/2018 by David Ba MD at [facility] Left: Knee [employer] [id number] 12/25/2027 [id number] / / [id number] [employer] [id number] Revision Cement Constrain Knee Left 5 Component Femoral Attune - [id number] Implanted:Qty: 1 on 06/19/2018 by David Ba MD at [facility] Left: Knee [employer] [id number] 12/24/2027 [id number] / / [id number] [employer]uy [employer] [id number] Attune Revision Cement Rotate Platform Knee 4 Baseplate Tibial - [id number] Implanted:Qty: 1 on 06/19/2018 by David Ba MD at [facility] Left: Knee [employer] [id number] 12/25/2027 [id number] / / [id number] Dep[employer] [id number] Attune Od12 Mm L60 Mm Revision Press Fit Knee Stem Femoral Sterile Latex Free - [id number] Implanted:Qty: 1 on 06/19/2018 by David Ba MD at [facility] Left: Knee [employer] [id number] 04/25/2027 [id number] / / [id number] [employer] [id number] Attune 16mm 60mm Revision Press Fit Knee Stem Femoral Sterile Latex Free - [id number] Implanted:Qty: 1 on 06/19/2018 by David Ba MD at [facility] Left: Knee [employer] [id number] 03/26/2028 [id number] / / [id number] [employer] [id number] Attune 4mm Revision Cement Knee Distal 5 Augment Femoral Sterile Latex Free - [id number] Implanted:Qty: 1 on 06/19/2018 by David Ba MD at [facility] Left: Knee [employer] [id number] 11/24/2027 [id number] / / [id number] [employer] 3122-040 Smartset Medium Viscosity Cement 40gm Bone Sterile - [id number] Implanted:Qty: 1 on 06/19/2018 by David Ba MD at [facility] Left: Knee [employer] [id number] 06/26/2019 3122-040 / / [id number] [employer] [id number] Smartset Medium Viscosity Cement 40gm Bone Gentamicin - [id number] Implanted:Qty: 1 on 06/19/2018 by David Ba MD at [facility] Left: Knee [employer] [id number] 12/25/2019 [id number] / / [id number] [employer]uy [employer] [id number] Attune H14 Mm Revision Constrain Rotate Platform Knee 5 Insert Tibial Aox Sterile - [id number] Implanted:Qty: 1 on 06/19/2018 by David Ba MD at [facility] Left: Knee DEPUY [employer] [id number] 03/26/2022 [id number] / / [id number] Insurance [facility] ADVANTAGE CON [facility] AETNA MEDICARE GOLD TNA MEDICARE GOLD Advance Directives For more information, please contact: [phone] * Full Code (Latest Code Status on File) Date Activated Date Inactivated Comments 06/19/2018 5:11 PM 06/20/2018 3:16 PM * Full Code Date Activated Date Inactivated Comments 02/18/2018 5:28 PM 02/19/2018 4:50 PM Care Teams Data Examination Clerk Relationship Specialty Start Date End Date René Smallwood MD PCP - General Family Medicine 02/11/20 René Smallwood MD Family Medicine 02/11/20
--- OUTSIDE RECORDS SUMMARY | 2024-05-11 17:33 | XMS_ITS | Encounter Summary ---
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 Gender Identity Not on file Sexual Orientation Not on file Occupation Industry Job Start Date Job End Date unemployed/disability Not on file Not on file Not on file documented as of this encounter Miscellaneous Notes * Telephone Encounter - Eladia Rico - 11/19/2023 2:33 PM CDT Mri is deneid, you need xray and a 6 week follow up before they will approve the mri documented in this encounter Plan of Treatment Not on file documented as of this encounter Visit Diagnoses Not on filedocumented in this encounter Care Teams Manager Retail Sales Relationship Specialty Start Date End Date René Smallwood MD PCP - General Family Medicine 02/11/20 René Smallwood MD Family Medicine 02/11/20 documented as of this encounter
--- OUTSIDE RECORDS SUMMARY | 2024-05-11 17:33 | XMS_ITS | Encounter Summary ---
Author Organization [facility] Healthcare Address [address] [place] [address] Care Team Providers Care Small Engine Technician Name Role Phone René Smallwood MD Primary Care Provider [phone] René Smallwood MD Unavailable [phone] Encounter Details Date Type Department Care Team (Late st Contact Info) Description 08/25/2021 Telephone [facility] [address] [place] [address] [place] [address] [facility] [address] [place] [address] Social History Tobacco Use Types Packs/Day Years Used Date Smoking Tobacco: Former Cigarettes 0.3 23.5 0 05/27/1994 - 12/11/2017 Smokeless Tobacco: Never Alcohol Use Standard Drinks/Week Comments Yes 0 (1 standard drink = 0.6 oz pur e alcohol) social Comments No Sex and Gender Information Value Date Recorded Sex Assigned at Not on file 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 Gender Identity Not on file Sexual Orientation Not on file Occupation Industry Job Start Date Job End Date unemployed/disability Not on file Not on file Not on file documented as of this encounter Miscellaneous Notes * Telephone Encounter - Eladia Montoya MA - 08/25/2021 8:43 AM CDT Left message for patient to call and reschedule appointment documented in this encounter Plan of Treatment Not on file documented as of this encounter Visit Diagnoses Not on filedocumented in this encounter Care Teams Small Engine Technician Relationship Specialty Start Date End Date René Smallwood MD PCP - General Family Medicine 02/11/20 René Smallwood MD Family Medicine 02/11/20 documented as of this encounter
--- OUTSIDE RECORDS SUMMARY | 2024-05-11 17:33 | XMS_ITS | Encounter Summary ---
Author Organization [facility] Healthcare Address [address] [place] [address] Care Team Providers Care Sports Media Name Role Phone René Smallwood MD Primary Care Provider [phone] René Smallwood MD Unavailable [phone] Reason for Visit * Reason Comments Med Management Encounter Details Date Type Department Care Team (Late st Contact Info) Description 09/22/2021 1:24 PM CDT - 09/22/2021 11:59 PM CDT Hospital Encounter [facility] [address] [place] [address] [place] [address] [facility] [address] [place], [place] [id number] [place] [address] [facility] [address] [place], [place] [id number] Chronic pain of both knees (Primary Dx); Chronic pain syndrome; Failure of total knee replacement, sequela Discharge Disposition: Discharge to home or self [...] on file 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 Gender Identity Not on file Sexual Orientation Not on file Occupation Industry Job Start Date Job End Date unemployed/disability Not on file Not on file Not on file documented as of this encounter Last Filed Vital Signs Vital Sign Reading Time Taken Comments Blood Pressure 113/99 09/22/2021 1:52 PM CDT Pulse 63 09/22/2021 1:52 PM CDT Temperature - - Respiratory Rate 18 09/22/2021 1:52 PM CDT Oxygen Saturation 100% 09/22/2021 1:52 PM CDT Inhaled Oxygen Concentration - - [...] tabletIndications:P ain Take 1 tablet by mouth 2 (two) times a day as needed for pain 60 tablet 10/23/2021 2 oxyCODONE-acetamino phen (PERCOCET) 5-325 mg per tabletIndications:P ain Take 1 tablet by mouth 2 (two) times a day as needed for pain 60 tablet 09/23/2021 2 topiramate (TOPAMAX) 50 mg tablet Take 100 mg by mouth 2 (two) times a day 01/26/2020 3 documented as of this encounter Discharge Disposition Disposition Code Departure Means Destination Discharge to home or self care documented in this encounter Progress Notes * Vishal Garza, MACHINE HAND - 09/22/2021 1:30 PM CDT Patient Name: Marnie Roque : 1965 Today's Date: 09/22/2021 PCP: René Smallwood MD Referring: No ref. provider found Chief Complaint Patient presents with ??? Med Management HPI Patient returned with complaints of bilateral knee pain. Pain described as crushing and stabbing. Pain is rated 8 on 10 scale. Pain utilizes her oxycodone for pain which helps reduce her symptomatology a fair degree but does not last long enough. She recently consulted a orthopedist in [place].He had blood work performed to rule out any potential infection and is following up later next weekto explore various options that may be available to address her chronic bilateral knee pain. In the meantime she is requesting refill on her medication which she tolerates well with no adverseside effects. No Known Allergies Past Medical History: [...] date: 05/27/1994 Quit date: 12/11/2017 Years since quittin.7 ??? Smokeless tobacco: Never Used Substance and [...] : levothyroxine sodium (TIROSINT) 112 mcg capsule topiramate (TOPAMAX) 50 mg tablet ALPRAZolam (XANAX) 0.25 mg tablet diazePAM (VALIUM) 5 mg tablet Review of Systems Review of [...] Hematological: Negative. Psychiatric/Behavioral: Negative. Physical Exam Vitals: 09/22/21 1352 BP: 113/99 Pulse: 63 Resp: 18 SpO2: 100% There is no height or [...] to 9 is higher risk ofopioid misuse) [place] and [place] Prescription Drug Monitoring Reviewed and was consistent with office guidelines and policies. Most recent Urine Toxicology findings reviewed. Assessment Problem List Musculoskeletal and Injuries Failed total knee arthroplasty ([facility]) ([facility]) Overview Added automatically from request for surgery [id number] Chronic pain of both knees - Primary [...] available regarding her chronic bilateral knee pain. We will provided with a prescription for belbuca 150 micro g film to be utilized q.12 hours. In addition we will provided with oxycodone 5 mg tablet to be utilized twice daily as needed for breakthrough pain. Follow-up medication check in 2 months or sooner if necessary. Goals of Treatment: Treat [...] using M*Modal dictation. There may be some tool crib manager variances which are not appreciated or corrected in this note. documented in this encounter Plan of Treatment Not on file documented as of this encounter Visit Diagnoses Diagnosis Chronic pain of both knees- Primary Chronic pain syndrome Failure of total knee replacement, sequela documented in this encounter Care Teams Sports Media Relationship Specialty Start Date End Date René Smallwood MD PCP - General Family Medicine 02/11/20 René Smallwood MD Family Medicine 02/11/20 documented as of this encounter
--- OUTSIDE RECORDS SUMMARY | 2024-05-11 17:33 | XMS_ITS | Encounter Summary ---
Author Organization [facility] Healthcare Address [address] [place] [address] Care Team Providers Care Continuous Miner Operator Helper Name Role Phone René Smallwood MD Primary Care Provider [phone] René Smallwood MD Unavailable [phone] Reason for Visit * Reason Comments Follow-up Encounter Details Date Type Department Care Team (Late st Contact Info) Description 06/11/2023 2:30 PM CYBER 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 Office Visit [facility] Pain Management at [address] [address] Vishal Wilde SENIOR SOFTWARE ENGINEER [address] [place] [address] Chronic pain syndrome (Primary Dx); Chronic pain of both knees; assisted (current) use of opiate analgesic; Peroneal neuropathy at knee, left Social History Tobacco Use Types Packs/Day Years [...] on file Legal Sex Female 11:20 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 Gender Identity Not on file Sexual Orientation Not on file Occupation Industry Job Start Date Job End Date unemployed/disability Not on file Not on file Not on file documented as of this encounter Last Filed Vital Signs Vital Sign Reading Time Taken Comments Blood Pressure 147/92 06/11/2023 2:42 PM CYBER 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 Pulse 85 06/11/2023 2:42 PM CYBER 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 Temperature - - Respiratory Rate - - Oxygen Saturation 96% 06/11/2023 2:42 PM CYBER 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 Inhaled Oxygen Concentration - - Weight - - Height 154.9 cm (5' 0.98 ) 06/11/2023 2:42 PM CS T Body Mass Index - - documented in this encounter Ordered Prescriptions Prescription Sig Dispense Quantity Refills Last Filled Start Date End Date oxyCODONE-acetamin ophen (PERCOCET) 7.5-325 mg per tabletIndications: Pain Take 1 tablet by mouth every 6 (six) hours as needed for pain 120 tablet 07/24/2023 10/15/2023 oxyCODONE-acetamin ophen (PERCOCET) 7.5-325 mg per tabletIndications: Pain Take 1 tablet by mouth every 6 (six) hours as needed for pain 120 tablet 06/24/2023 08/06/2023 documented in this encounter Progress Notes * Vishal Wilde NP - 06/11/2023 2:30 PM CST Patient Name: Marnie Roque : 1965 Today's Date: 06/11/2023 PCP: René Smallwood MD Referring: Vishal Wilde NP Chief Complaint Patient presents with Follow-up [...] Hematological: Negative. Psychiatric/Behavioral: Negative. Physical Exam Vitals: 06/11/23 1442 BP: 147/92 Pulse: 85 SpO2: 96% Weight: Comment: patient refused Height: 154.9 cm [...] to 9 is higher risk ofopioid misuse) [place] and [place] Prescription Drug Monitoring Reviewed and was consistent with office guidelines and policies. Most recent Urine Toxicology findings reviewed. Assessment Problem List Mental Health assisted (current) use of opiate analgesic Musculoskeletal and Injuries Chronic pain of both knees Neuro Peroneal neuropathy at knee, left Chronic pain syndrome - Primary Plan Pre-hypertension/Hypertension: [...] toxicology screen consistent with our prescribing guidelines. Goals of Treatment: Treat underlying pathology, improve [...] using M*Modal dictation. There may be some java enterprise architect variances which are not appreciated or corrected in this note. Cosigned by Olegario Adair MD at 06/12/2023 7:21 AM CYBER 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 R 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 R 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 documented in this encounter Miscellaneous Notes * Addendum Note - Vishal Wilde NP - 06/11/2023 2:30 PM CSTAddended by: VISHAL WILDE on: 06/11/2023 03:43 PM Modules accepted: Orders R 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 documented in this encounter Plan of Treatment Not on file documented as of this encounter Visit Diagnoses Diagnosis Chronic pain syndrome- Primary Chronic pain of both knees watermaster (current) use of opiate analgesic Peroneal neuropathy at knee, left documented in this encounter Discontinued Medications Medication Sig Discontinue Reason Start Date End Da te oxyCODONE-acetaminophen (PERCOCET) 7.5-325 mg per tabletIndications:Pain Take 1 tablet by mouth every 6 (six) hours as needed for pain 04/24/2023 06/11/2023 oxyCODONE-acetaminophen (PERCOCET) 7.5-325 mg per tabletIndications:Pain Take 1 tablet by mouth every 6 (six) hours as needed for pain 05/24/2023 06/11/2023 documented as of this encounter Care Teams Continuous Miner Operator Helper Relationship Specialty Start Date End Date René Smallwood MD PCP - General Family Medicine 02/11/20 René Smallwood MD Family Medicine 02/11/20 documented as of this encounter
--- OUTSIDE RECORDS SUMMARY | 2024-05-11 17:33 | XMS_ITS | Encounter Summary ---
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 THANK YOU. documented in this encounter Plan of Treatment Not on file documented as of this encounter Visit Diagnoses Not on filedocumented in this encounter Care Teams Vice President Of Customer Service Relationship Specialty Start Date End Date René Smallwood MD PCP - General Family Medicine 02/11/20 René Smallwood MD Family Medicine 02/11/20 documented as of this encounter
--- OUTSIDE RECORDS SUMMARY | 2024-05-11 17:33 | XMS_ITS | Clinical Summary ---
Author Organization [facility] Address [address] [place] [address] Care Team Providers Care Financial Aids Officer Name Role Phone René Smallwood MD Primary Care Provider [phone] René Smallwood MD Unavailable [phone] Allergies Active Allergy Reactions Criticality Noted Date [...] or minimal response. 1 each 1 10/17/19 23 Active levothyroxine (SYNTHROID) 100 mcg tablet Take 1 tablet (100 mcg total) by mouth daily 02/19/20 23 Active Ubrelvy 50 mg tablet TAKE 1 TABLET BY MOUTH ONCE A SINGLE DOSE MAY REPEAT ONCE IN >=2 HOURS AFTER FIRST DOSE IF NEEDED 12/04/19 24 Active rizatriptan CUSTOMER SUCCESS ADVOCATE (MAXALT-CUSTOMER SUCCESS ADVOCATE) 10 mg disintegrating tablet Take 1 tablet [...] as needed for pain 120 tablet 03/27/20 Active oxyCODONE-acetamin ophen (PERCOCET) 7.5-325 mg per tabletIndications: Pain Take 1 tablet by mouth every 6 (six) hours as needed for pain 120 tablet 04/26/20 24 024 Active Active Problems Problem Noted Date Diagnosed Date Chronic right shoulder pain 10/15/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 10/26 Chronic pain of both knees 12/15/2020 Chronic pain syndrome 04/19/2020 Major depressive disorder, s franchesca episode, in full remission 04/19/2020 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 11/30/2019 Overview (11/30/2019): Added automatically from request for surgery [id number] Complex regional pain syndro me type 1 of both lower extremities 11/23/2019 Chronic postoperative pain 11/23/2019 Saphenous nerve neuropathy, 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, left 10/23/2019 Depression 06/17/2018 Hypothyroidism 06/17/2018 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 05/22/2018 Overview (05/22/2018): Added automatically from request for surgery [id number] Migraine 02/18/2018 Anxiety 02/18/2018 Failed total knee arthroplasty ([facility]) 018 Overview (01/13/2018): Added automatically from request for surgery [id number] Encounters Date Type Department Care Team Description 03/10/2024 2:00 PM CDT - 03/10/2024 11:59 PM CDT Hospital Encounter [facility] [id number] [place] [address] Vishal Garza NP Saphenous nerve neuropathy, left (Primary Dx); Peroneal neuropathy at knee, left; Chronic pain of both knees Discharge Disposition: Discharge to home or self care from Last 3 Months Immunizations Name Administration Dates Next Due Tdap 05/01/2016 Surgical History Surgery Date Site/Laterality Comments TUBAL LIGATION WRIST FRACTURE SURGERY TOTAL KNEE ARTHROPLASTY 05/27/2014 - 06/26/2014 Left TOTAL KNEE ARTHROPLASTY 08/26/2015 - 09/24/2015 Right REVISION TOTAL KNEE ARTHROPLASTY 02/18/2018 Right FL UPPER GI AIR CONTRAST W KUB 02/26/2019 Left REVISION TOTAL KNEE ARTHROPLASTY Left LIPOSUCTION EXTREMITIES arms PERONEAL NERVE DECOMPRESSION 11/25/2019 - 12/25/2019 Left Medical History Medical History Date Comments Anxiety Arthritis Depression Migraines Obesity Hypothyroidism Hyperthyroidism Family History Medical History Relation Name Comments Cancer Maternal Grandmother Arthritis Other Mental illness Other Relation Name Status Comments Maternal Grandmother Other Social History Tobacco Use Types Packs/Day Years [...] on file 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 Gender Identity Not on file Sexual Orientation Not on file Occupation Industry Job Start Date Job End Date unemployed/disability Not on file Not on file Not on file Obstetrics History Last Filed Vital Signs Vital Sign Reading [...] 02/12/2023 1:34 PM CDT Plan of Treatment Health Maintenance Due Date Last Done Comments Breast Cancer Screening-Mammogram 1965 Cervical Cancer Screening 1965 Colon Cancer Screening-Colonoscopy 1965 Depression Screening 1965 Hepatitis C Screening 1965 Hepatitis B Screening 1982 Regular Well Visit/Exam 18-64 1982 Zoster Vaccine (1 of 2) 2014 Influenza Vaccine (#1) 2024 DTaP/Tdap/Td Vaccine (2 - Td or Tdap) 05/01/2026 05/01/2016 Pneumococcal vaccine <65 Aged Out No longer eligible based on patient's age to complete this topic Medical Devices Implanted Type Area Charter Representative Device Identifier Shelf Expiration Date Model / Serial / Lot [employer] 3122-040 Smartset Medium Viscosity Cement 40gm Bone Sterile - [id number] Implanted:Qty: 1 on 02/18/2018 by David Ba MD at [facility] [employer] [id number] 05/26/2019 3122-040 / / Dep[employer] [id number] Attune 16mm 60mm Revision Press Fit Knee Stem Femoral Sterile Latex Free - [id number] Implanted:Qty: 1 on 02/18/2018 by David Ba MD at [facility] Right: Knee [employer] [id number] 09/24/2027 [id number] / / [id number] [employer] [id number] Revision Cement Constrain Knee Right 5 Component Femoral Attune - [id number] Implanted:Qty: 1 on 02/18/2018 by David Ba MD at [facility] Right: Knee [employer] [id number] 12/25/2027 [id number] / / [id number] [employer] [id number] Attune H5 Mm Revision Cement Knee 3/4 Avenel Augment Tibial Sterile Latex Free - [id number] Implanted:Qty: 1 on 02/18/2018 by David Ba MD at [facility] Right: Knee [employer] [id number] 09/24/2027 [id number] / / [id number] Dr. Tariff [id number] Attune 12mm Revision Constrain Rotate Platform Knee 5 Insert - [id number] Implanted:Qty: 1 on 02/18/2018 by David Ba MD at [facility] [employer] [id number] 05/26/2022 [id number] / / Dep[employer] [id number] Smartset Medium Viscosity Cement 40gm Bone Gentamicin - [id number] Implanted:Qty: 1 on 02/18/2018 by David Ba MD at [facility] [employer] [id number] 05/26/2019 [id number] / / Dep[employer] [id number] Smartset Medium Viscosity Cement 40gm Bone Gentamicin - [id number] Implanted:Qty: 1 on 02/18/2018 by aDvid Ba MD at [facility] [employer] [id number] 05/26/2019 [id number] / / Dep[employer] [id number] Attune 8mm Revision Cement Knee Distal 5 Augment Femoral Sterile Latex Free - [id number] Implanted:Qty: 1 on 02/18/2018 by David Ba MD at [facility] Right: Knee [employer] [id number] 06/26/2027 [id number] / / [id number] [employer] [id number] Attune 8mm Revision Cement Knee Distal 5 Augment Femoral Sterile Latex Free - [id number] Implanted:Qty: 1 on 02/18/2018 by David Ba MD at [facility] Right: Knee [employer] [id number] 03/26/2027 [id number] / / [id number] [employer] [id number] Attune 4mm Revision Cement Knee Posterior 5 Augment Femoral Latex Free - [id number] Implanted:Qty: 1 on 02/18/2018 by David Ba MD at [facility] Right: Knee [employer] [id number] 08/25/2027 [id number] / / [id number] [employer] [id number] Attune Revision Cement Rotate Platform Knee 4 Baseplate Tibial - [id number] Implanted:Qty: 1 on 02/18/2018 by David Ba MD at [facility] Right: Knee [employer] [id number] 08/25/2027 [id number] / / [id number] Depuy Orthopaedics [employer] [id number] Attune Od12 Mm L60 Mm Revision Press Fit Knee Stem Femoral Sterile Latex Free - [id number] Implanted:Qty: 1 on 02/18/2018 by David Ba MD at [facility] Right: Knee [employer] [id number] 08/25/2027 [id number] / / [id number] [employer] [id number] Attune 8mm Revision Cement Knee Posterior 5 Augment Femoral Latex Free - [id number] Implanted:Qty: 1 on 02/18/2018 by David Ba MD at [facility] Right: Knee [employer] [id number] 01/25/2028 [id number] / / [id number] [employer] [id number] Attune 4mm Revision Cement Knee Posterior 5 Augment Femoral Latex Free - [id number] Implanted:Qty: 1 on 06/19/2018 by David Ba MD at [facility] Left: Knee [employer] [id number] 12/25/2027 [id number] / / [id number] [employer] [id number] Attune 4mm Revision Cement Knee Posterior 5 Augment Femoral Latex Free - [id number] Implanted:Qty: 1 on 06/19/2018 by David Ba MD at [facility] Left: Knee [employer] [id number] 12/25/2027 [id number] / / [id number] [employer] [id number] Revision Cement Constrain Knee Left 5 Component Femoral Attune - [id number] Implanted:Qty: 1 on 06/19/2018 by David Ba MD at [facility] Left: Knee [employer] [id number] 12/24/2027 [id number] / / [id number] Depuy [employer] [id number] Attune Revision Cement Rotate Platform Knee 4 Baseplate Tibial - [id number] Implanted:Qty: 1 on 06/19/2018 by David Ba MD at [facility] Left: Knee DE[employer] [id number] 12/25/2027 [id number] / / [id number] [employer] [id number] Attune Od12 Mm L60 Mm Revision Press Fit Knee Stem Femoral Sterile Latex Free - [id number] Implanted:Qty: 1 on 06/19/2018 by David Ba MD at [facility] Left: Knee [employer] [id number] 04/25/2027 [id number] / / [id number] [employer] [id number] Attune 16mm 60mm Revision Press Fit Knee Stem Femoral Sterile Latex Free - [id number] Implanted:Qty: 1 on 06/19/2018 by David Ba MD at [facility] Left: Knee [employer] [id number] 03/26/2028 [id number] / / [id number] [employer] [id number] Attune 4mm Revision Cement Knee Distal 5 Augment Femoral Sterile Latex Free - [id number] Implanted:Qty: 1 on 06/19/2018 by David Ba MD at [facility] Left: Knee [employer] [id number] 11/24/2027 [id number] / / [id number] [employer] 3122-040 Smartset Medium Viscosity Cement 40gm Bone Sterile - [id number] Implanted:Qty: 1 on 06/19/2018 by David Ba MD at [facility] Left: Knee [employer] [id number] 06/26/2019 3122-040 / / [id number] [employer] [id number] Smartset Medium Viscosity Cement 40gm Bone Gentamicin - [id number] Implanted:Qty: 1 on 06/19/2018 by David Ba MD at [facility] Left: Knee [employer] [id number] 12/25/2019 [id number] / / [id number] Depuy [employer] [id number] Attune H14 Mm Revision Constrain Rotate Platform Knee 5 Insert Tibial Aox Sterile - [id number] Implanted:Qty: 1 on 06/19/2018 by David Ba MD at [facility] Left: Knee DEPUY [employer] [id number] 03/26/2022 [id number] / / [id number] Insurance [facility] CON [facility] CON [facility] AETNA MEDICARE GOLD AETNA MEDICARE GOLD Advance Directives For more information, please contact: [phone] * Full Code (Latest Code Status on File) Date Activated Date Inactivated Comments 06/19/2018 5:11 PM 06/20/2018 3:16 PM * Full Code Date Activated Date Inactivated Comments 02/18/2018 5:28 PM 02/19/2018 4:50 PM Care Teams Financial Aids Officer Relationship Specialty Start Date End Date René Smallwood MD PCP - General Family Medicine 02/11/20 René Smallwood MD Family Medicine 02/11/20
--- OUTSIDE RECORDS SUMMARY | 2024-05-11 17:33 | XMS_ITS | Encounter Summary ---
Author Organization [facility] Address [address] [place] [address] Care Team Providers Care Machine Hostler Name Role Phone René Smallwood MD Primary Care Provider [phone] René Smallwood MD Unavailable [phone] Reason for Visit * Reason Comments Follow-up Encounter Details Date Type Department Care Team (Latest Contact Info) Description 04/24/2022 3:30 PM PAPER TESTER Office Visit [facility] Pain Management at [address] [address] Vishal Garza NONFARM ANIMAL CARETAKER [address] [place] [id number] Chronic postoperative pain (Primary Dx); Chronic pain syndrome; Chronic pain of both knees; custodial (current) use of opiate analgesic; Complex regional [...] on file Legal Sex Female 11:20 AM PAPER TESTER Gender Identity Not on file Sexual Orientation Not on file Occupation Industry Job Start Date Job End Date unemployed/disability Not on file Not on file Not on file documented as of this encounter Last Filed Vital Signs Vital Sign Reading Time Taken Comments Blood Pressure 133/90 04/24/2022 3:29 PM PAPER TESTER Pulse 86 04/24/2022 3:29 PM PAPER TESTER Temperature - - Respiratory Rate - - Oxygen Saturation - - Inhaled Oxygen Concentration - - Weight 83 kg (183 lb) 04/24/2022 3:29 PM PAPER TESTER Height - - Body Mass Index 34.6 02/27/2022 1:08 PM CDT documented in this encounter Ordered Prescriptions Prescription Sig Dispense Quantity Refills Last Filled Start Date End Date oxyCODONE-acetamin ophen (PERCOCET) 5-325 mg per tabletIndications: Pain Take 1 tablet by mouth every 6 (six) hours as needed for pain 120 tablet 05/24/2022 08/14/2022 oxyCODONE-acetamin ophen (PERCOCET) 5-325 mg per tabletIndications: Pain Take 1 tablet by mouth every 6 (six) hours as needed for pain 120 tablet 04/24/2022 06/19/2022 documented in this encounter Progress Notes * Vishal Garza, NONFARM ANIMAL CARETAKER - 04/24/2022 3:30 PM CST Patient Name: Marnie Roque : 1965 Today's Date: 04/24/2022 PCP: René Smallwood MD Referring: René Smallwood MD Chief Complaint Patient presents with Follow-up HPI Patient returned with ongoing complaints of chronic bilateral knee pain. She reports improvement with her knee from the recent orthopedic surgery as there is better alignment but regarding symptomatology there is no change. She continues to endorse pain level at 8 on 10 scale with quality pain sharp and stabbing and exacerbated with walking and standing. She attempted the xtampza and denies any significant notable benefit. She wishes to return to the oxycodone if possible. She is tried belbuca in the past and states that the Belbuca film simply would not dissolve easily in her mouth and turn to ???gum?? . Allergies Allergen Reactions Naproxen Nausea And Vomiting [...] : levothyroxine sodium (TIROSINT) 112 mcg capsule ALPRAZolam (XANAX) 0.25 mg tablet buprenorphine HCL (Belbuca) 150 mcg film diazePAM (VALIUM) 5 mg tablet oxyCODONE myristate (Xtampza ER) 9 mg capsule,sprinkle,ER 12hr tmprr oxyCODONE myristate (Xtampza ER) 9 mg capsule,sprinkle,ER 12hr tmprr oxyCODONE-acetaminophen (PERCOCET) 5-325 mg per tablet topiramate (TOPAMAX) 50 mg tablet Review of Systems Review of Systems Musculoskeletal: Positive for arthralgias, gait problem and joint swelling. Neurological: Negative for weakness. Physical Exam Vitals: 04/24/22 1529 BP: 133/90 BP Location: Right arm Patient Position: Sitting Pulse: 86 Weight: 83 kg (183 lb) Body mass index is 34.6 kg/m??. Physical Exam Vitals and nursing note reviewed. Constitutional: General: She is not in acute distress. Appearance: Normal appearance. She is well-developed. She is not diaphoretic. HENT: Head: Normocephalic and atraumatic. Eyes: Conjunctiva/sclera: Conjunctivae normal. Musculoskeletal: General: No tenderness or deformity. Right lower leg: No edema. Left lower leg: No edema. Skin: General: Skin is warm and dry. [...] Judgment normal. Assessment Problem List Mental Health custodial (current) use of opiate analgesic Musculoskeletal and Injuries Chronic pain of both knees Neuro Chronic postoperative pain - Primary Chronic pain syndrome Plan Pre-hypertension/Hypertension: The patient [...] weight loss and exercise for management. Patient did not note significant improvement with the xtampza there for we will transition back to oxycodone 5 mg tablets to be taken Q 6 hours p.r.n. for moderate to severe pain total quantity 120. We will provided with 2 months of medication coverage in follow-up with her at that time. In addition we did discuss knowledge as a potential treatment for her chronic knee pain. She wishes to addressthe stability issue in her knee before pursuing any peripheral nerve stim device and I am in agreement with this. We will follow up with her in 2 months. This dictation was performed using M*Modal dictation. There may be some resident director variances which are not appreciated or corrected in this note. R TESTER documented in this encounter Plan of Treatment Not on file documented as of this encounter Visit Diagnoses Diagnosis Chronic postoperative pain- Primary Other chronic postoperative pain Chronic pain syndrome Chronic pain of both knees terminal computer operator (current) use of opiate analgesic Complex regional pain syndrome type 1 of both lower extremities documented in this encounter Discontinued Medications Medication Sig Discontinue Reason Start Date End Da te oxyCODONE-acetaminophen (PERCOCET) 5-325 mg per tabletIndications:Pain Take 1 tablet by mouth 2 (two) times a day as needed for pain Reorder 03/22/2022 04/24/2022 oxyCODONE myristate (Xtampza ER) 9 mg capsule,sprinkle,ER 12hr tmprrIndications:severe chronic pain requiring long-term opioid treatment Take 1 capsule by mouth every 12 (twelve) hours Alternate therapy 03/29/2022 04/24/2022 oxyCODONE myristate (Xtampza ER) 9 mg capsule,sprinkle,ER 12hr tmprrIndications:severe chronic pain requiring long-term opioid treatment Take 1 capsule by mouth every 12 (twelve) hours Alternate therapy 02/27/2022 04/24/2022 documented as of this encounter Care Teams Machine Hostler Relationship Specialty Start Date End Date René Smallwood MD PCP - General Family Medicine 02/11/20 René Smallwood MD Family Medicine 02/11/20 documented as of this encounter
--- OUTSIDE RECORDS SUMMARY | 2024-05-11 17:33 | XMS_ITS | Encounter Summary ---
Author Organization [facility] Healthcare Address [address] [place] [address] Care Team Providers Care Shuttlecock Assembler Name Role Phone René Smallwood MD Primary Care Provider [phone] René Smallwood MD Unavailable [phone] Encounter Details Date Type Department Care Team (Late st Contact Info) Description 01/23/2022 Telephone [facility] [address] [place] [id number] Cheryl Hummel Social History Tobacco Use Types Packs/Day Years Used Date Smoking Tobacco: Former Cigarettes 0.3 23.5 0 05/27/1994 - 12/11/2017 Smokeless Tobacco: Never Alcohol Use Standard Drinks/Week Comments Yes 0 (1 standard drink = 0.6 oz pur e alcohol) social Comments No Sex and Gender Information Value Date Recorded Sex Assigned at Not on file Legal Sex Female 11:20 AM MAILROOM ASSOCIATE Gender Identity Not on file Sexual Orientation Not on file Occupation Industry Job Start Date Job End Date unemployed/disability Not on file Not on file Not on file documented as of this encounter Miscellaneous Notes * Telephone Encounter - Sujatha Negrete RN - 01/23/2022 3:38 PM CDT Spoke with daughter. She DID NOT get any meds from the ortho. Per Roman Garza PREVENTION SPECIALIST, patient can take percocet 5/325 mg TID prn for pain but we would not increase that amount. If that is not controlling her pain, she needs to call her surgeon to discuss plan of care. * Telephone Encounter - Vishal Garza NP - 01/23/2022 2:40 PM CDT Patient brought in the postsurgical instructions and what is typically prescribed for her procedure, which I believe was [place] 5/325. I informed her,she can continue with Percocet 5/325 t.i.d. as shehas been doing, but to not fill the vicodin. However, If the percocet is not sufficient in addressing her pain, I would recommend she contact her orthopedic surgeon who may want to actually see her. * Telephone Encounter - Cheryl Hummel - 01/23/2022 11:31 AM CDT HER MOTHER, OUR PATIENT, BRIONNA, HAD SURGERY YESTERDAY. THE SURGEON WOULD ONLY PRESCRIBE HER VICODIN. THAT MED DOES NOT TOUCH HER PAIN. SO THEY HAVE QUESTIONS ABOUT ROMAN PRESCRIBING MORE PAIN PILLS BECAUSE OF THIS SURGERY. PLEASE CALL HER. THANKS. documented in this encounter Plan of Treatment Not on file documented as of this encounter Visit Diagnoses Not on filedocumented in this encounter Care Teams Shuttlecock Assembler Relationship Specialty Start Date End Date René Smallwood MD PCP - General Family Medicine 02/11/20 René Smallwood MD Family Medicine 02/11/20 documented as of this encounter
--- OUTSIDE RECORDS SUMMARY | 2024-05-11 17:33 | XMS_ITS | Encounter Summary ---
Author Organization [facility] Healthcare Address [address] [place] [address] Care Team Providers Care Sas Architect Name Role Phone René Smallwood MD Primary Care Provider [phone] René Smallwood MD Unavailable [phone] Encounter Details Date Type Department Care Team (Late st Contact Info) Description 04/10/2022 Telephone [facility] [id number] [place] [id number] Cheryl Hummel Social History Tobacco Use Types [...] on file Legal Sex Female 11:20 AM WEB SITE MANAGER Gender Identity Not on file Sexual Orientation Not on file Occupation Industry Job Start Date Job End Date unemployed/disability Not on file Not on file Not on file documented as of this encounter Miscellaneous Notes * Telephone Encounter - Haely Smith RN - 04/11/2022 8:17 AM WEB SITE MANAGER Per ayan patient can d/c xtampza and increase oxycodone tid-pt is aware and will bring in xtampza to waste SITE MANAGER * Telephone Encounter - Cheryl Hummel - 04/10/2022 2:17 PM CST Ayan prescribed patient got prescribed xtampza but is not working. He decreased her oxy to two per day with xtampza She is not taking xtampza so she is wondering if she can get oxy for three times per day like previously prescribed. She did move her May 01 apt to Apr 24 in [place]. She wanted to get in next week but [facility] is all booked til the . Thanks SITE MANAGER documented in this encounter Plan of Treatment Not on file documented as of this encounter Visit Diagnoses Not on filedocumented in this encounter Care Teams Sas Architect Relationship Specialty Start Date End Date René Smallwood MD PCP - General Family Medicine 02/11/20 René Smallwood MD Family Medicine 02/11/20 documented as of this encounter
--- OUTSIDE RECORDS SUMMARY | 2024-05-11 17:34 | XMS_ITS | Encounter Summary ---
Author Organization [facility] Address [address] [place] [address] Phone Care Team Providers Care Derrick Barge Operator Name Role Phone René Smallwood MD Primary Care Provider [phone] René Smallwood MD Unavailable [phone] Encounter Details Date Type Department Care Team (Late st Contact Info) Description 02/11/2020 Telephone [facility] Scheduling [address] [place] [address] Cee Yanez BS Social History Tobacco Use Types Packs/Day Years Used Date Smoking Tobacco: Never Assessed Comments No Sex and Gender Information Value Date Recorded Sex Assigned at Not on file Legal Sex Female 11:20 AM CATH LAB NURSE Gender Identity Not on file Sexual Orientation Not on file documented as of this encounter Miscellaneous Notes * Telephone Encounter - Yamilka Maldonado - 02/18/2020 11:25 AM CDT SEe ins info in chart from 02-18-20. * Telephone Encounter - Cruz Nunez - 02/18/2020 10:11 AM CDT Spoke to [facility] office, they are faxing over notes. 2nd request for ins auth and records from PCP. 2nd request for imaging to be pushed from [facility]. m for pt stating we do not have these yet and insurance auth is needed before apt. * Telephone Encounter - Cruz Nunez - 02/11/2020 3:10 PM CDT Pt's daughter called, GABOO self-ref to [facility]. Once review process was explained, pt was ok with MAIL DELIVERER apt.MRI of lumbar to be completed at [facility] this Tuesday 02/13. Reg/intake complete. Need PCP records, MRI report, and [facility] records. Will request MRI of Lumbar on 02/14. Faxing request to PCP for insurance auth. Scheduled w [facility] on 02/21 at 145. * Telephone Encounter - Cruz Nunez - 02/11/2020 2:48 PM CDT Department of Neurological Surgery at [facility] Spine Intake 02/11/20 Regina Roque 1965 (Not on file) Cell [phone] René Smallwood MD Referring physician SELF Office number: Office Fax: Caller Name: DAUGHTER Referred to: First Available: OSBUN Assigned to: First Available: MAIL DELIVERER Consult: Yes Second Opinion: N/A Diagnosis: Lumbar disc buldge Requested Timeframe: NA Location (Spinal Area): Lumbar Incontinence: No Weakness: Yes LEGS BOTH, CANNOT WALK WITHOUT CRUTCHES FOR PAST 2 YEARS. IF SHE TRIES TO WALK FREELYSHE WILL FALL OVER. Numbness: Yes BOTH LEGS, CONSTANT TINGLING Pain: Yes 24/7 SHARP, BURNING PAIN IN LEGS. PRESSURE FEELING IN BOTH LEGS. 10/10 ALWAYS Duration of symptoms: OVER 10 YEARS HT: APPROX 5'1 WT: APPROX 180 BMI: 34 Prior spine surgery: NO Physical therapy YES Injections YES, LAST INJECTION WAS 9 MONTHS. PT SAID INJECTIONS DID NOT WORK. Are you a current smoker: No Other surgeons seen: Yes Physicians name: LIZETH AWAD PT SAW [facility] YEARS AGO WHO TOLD HER HE WOULD NOT DO SURGERY Litigation: No MVA: No W/C: No Insurance: [facility] [place] Imaging Done: N/A MRI: MRI OF LUMBAR Imaging Location: TO BE COMPLETED 02/14/2020 AT [facility] Does the patient have any metal in their body? N/A Appointment scheduled: Yes PT TO BRING CD AND ARRIVE 45 MINS EARLY documented in this encounter Plan of Treatment Not on file documented as of this encounter Visit Diagnoses Not on filedocumented in this encounter Care Teams Derrick Barge Operator Relationship Specialty Start Date End Date René Smallwood MD PCP - General Family Medicine 02/11/20 René Smallwood MD Family Medicine 02/11/20 documented as of this encounter
--- OUTSIDE RECORDS SUMMARY | 2024-05-11 17:34 | XMS_ITS | Encounter Summary ---
Author Organization [facility] Healthcare Address [address] [place] [address] Care Team Providers Care Chamber [employer] Division Manager Name Role Phone René Smallwood MD Primary Care Provider [phone] René Smallwood MD Unavailable [phone] Encounter Details Date Type Department Care Team (Late st Contact Info) Description 12/12/2020 Telephone [facility] Pain Management Center [address] [place] [address] [place] [address] [facility] [address] [place] [address] Social History Tobacco Use Types Packs/Day Years Used Date Smoking Tobacco: Former Cigarettes 0.3 23.5 0 05/27/1994 - 12/11/2017 Smokeless Tobacco: Never Alcohol Use Standard Drinks/Week Comments Yes 0 (1 standard drink = 0.6 oz pur e alcohol) social Comments No Sex and Gender Information Value Date Recorded Sex Assigned at Not on file Legal Sex Female 11:20 AM VP PRODUCT MANAGEMENT Gender Identity Not on file Sexual Orientation Not on file Occupation Industry Job Start Date Job End Date unemployed/disability Not on file Not on file Not on file documented as of this encounter Miscellaneous Notes * Telephone Encounter - Eladia Rico - 12/12/2020 10:17 AM CDT PATIENT CALLED TO SCHEDULE [facility] TRIAL BUT SHE HASN'T BEEN HERE SINCE March SHE NEEDS A FOLLOW UP APPT FIRST documented in this encounter Plan of Treatment Not on file documented as of this encounter Visit Diagnoses Not on filedocumented in this encounter Care Teams [employer] Division Manager Relationship Specialty Start Date End Date René Smallwood MD PCP - General Family Medicine 02/11/20 René Smallwood MD Family Medicine 02/11/20 documented as of this encounter
--- OUTSIDE RECORDS SUMMARY | 2024-05-11 17:34 | XMS_ITS | Encounter Summary ---
Author Organization [facility] Healthcare Address [address] [place] [address] Care Team Providers Care Drug Coordinator Name Role Phone René Smallwood MD Primary Care Provider [phone] René Smallwood MD Unavailable [phone] Encounter Details Date Type Department Care Team (Latest Contact Info) Description 02/22/2020 3:53 PM CDT - 02/22/2020 11:59 PM CDT Hospital Encounter [facility] [address] [place] [phone] Discharge Disposition: Discharge to home or self [...] on file Legal Sex Female 11:20 AM WELFARE DIRECTOR Gender Identity Not on file Sexual Orientation Not on file Occupation Industry Job Start Date Job End Date unemployed/disability Not on file Not on file Not on file documented as of this encounter Medications at Time of Discharge diazePAM (VALIUM) 5 mg tabletIndication s:anxiety Take 5 mg by mouth nightly as needed at bedtime. 5 12/16/2017 04/09/2023 levothyroxine sodium (TIROSINT) 112 mcg capsuleIndicatio ns:hypothyroidis m Take 1 capsule (112 mcg total) by mouth every morning 12/30/2017 04/09/2023 oxyCODONE-acetam inophen (PERCOCET) 5-325 mg per tabletIndication s:Pain Take 1 tablet by mouth every 4 (four) hours as needed for pain (Take only if having residual pain after taking ibuprofen) 10 tablet 12/03/2019 05/10/2021 rizatriptan (MAXALT) 10 mg tablet 02/17/2020 07/12/2021 topiramate (TOPAMAX) 25 mg tabletIndication s:Migraine Prevention Take 100 mg by mouth 2 (two) times a day 12/30/2017 07/12/2021 topiramate (TOPAMAX) 50 mg tablet Take 100 mg by mouth 2 (two) times a day 01/26/2020 04/09/2023 documented as of this encounter Discharge Disposition Disposition Code Departure Means Destination Discharge to home or self care documented in this encounter Plan of Treatment Not on file documented as of this encounter Procedures Procedure Name Priority Date/Time Associated Diagnosis Comments NEURO CT MR OUTSIDE REFERENCE Routine 02/22/2020 3:53 PM CDT Diagnosis unknown documented in this encounter Results * Neuro CT MR Outside Reference (02/22/2020 3:53 PM CDT) Impressions [facility] - 02/22/2020 3:53 PM CDT These images are for Reference purposes only and have not been reviewed by [facility] Radiology. ??There will be no report generated by a [facility] Radiologist. Narrative [facility] - 02/22/2020 3:53 PM CDT EXAMINATION: ??Images For Reference Purposes Only us Suzan Sanches PRICING ANALYST IMG CT PROCEDURES Final Re sult [facility] documented in this encounter Visit Diagnoses Not on filedocumented in this encounter Care Teams Drug Coordinator Relationship Specialty Start Date End Date René Smallwood MD PCP - General Family Medicine 02/11/20 René Smallwood MD Family Medicine 02/11/20 documented as of this encounter
--- OUTSIDE RECORDS SUMMARY | 2024-05-11 17:34 | XMS_ITS | Encounter Summary ---
Author Organization [facility] Healthcare Address [address] [place] [address] Care Team Providers Care Plant Packer Name Role Phone René Smallwood MD Primary Care Provider [phone] Encounter Details Date Type Department Care Team (Late st Contact Info) Description 12/03/2019 11:49 AM CDT Anesthesia Event [facility] Operating Room [address] [place] [address] [place] [id number] [facility] [place] [address] Lionel Saeed MD [address] [place] [id number] Anesthesia Record Procedure Summary Procedure Name Responsible Anesthesiologist Anesthesia Start Time Anesthesia Stop Time DECOMPRESSION LEFT COMMON PERONEAL NERVE; DECOMPRESSION SAPHENOUS NERVE, LEFT (Left: Leg Lower) Albert Lee MD 12/03/19 1149 12/03/19 1518 Events Date Time Event Comment 12/03/2019 1017 1148 In Room 1149 An Start 1149 An Start Data 1155 An Induction The patient was reevaluated immediately before moderate or deep sedation use and before anesthesia induction. 1156 An Intubation 1156 Anesthesia Ready 1206 Quick Note .Two or more Pr ophylactic Antiemetics given 1235 Proc Start 1237 Incision Start 1507 Proc Fin 1512 Out of Room 1512 An Extubation 1513 an stop data 1518 Handoff to RN I completed my handoff to the receiving nurse during which we: 1. Patient identified 2. Responsible provider identified 3. Pertinent medical history reviewed 4. Procedure type and surgical course discussed 5. Intraoperative anesthetic management and any significant issues discussed 6. Expectations and concerns for postop period discussed 7. Questions solicited from receiving nurse 8. Patient disposition at the time of handoff: PACU 1518 An Stop 1519 Release from care Meds Name Total midazolam 2 mg fentaNYL 100 mcg propofol 200 mg rocuronium 40 mg succinylcholine 200 mg ondansetron 4 mg glycopyrrolate 0.6 mg neostigmine 4 mg lidocaine 2 % PF 100 mg diphenhydrAMINE 12.5 mg ceFAZolin (ANCEF) 1 gram/10 mL in steril e water (premix) 2,000 mg 2,000 mg HYDROmorphone 1.2 mg Lactated Ringer's (LR) infusion 2,100 mL * Agents Name O2 Air Sevoflurane Inspired Sevoflurane * Blood No blood administrations on file. Lines, Drains, and Airways Type Details Placement Removal Closed/Suction/Open Drain 12/03/19; 1350; 1; Left; Leg; Bulb; 19 Fr. 12/03/19 1350 by Rachael Beard, TAL RETIRED Surgical Site 06/19/18; 1408; Le ft; Knee; 04/28/24 (Retired LDA, Removed/Completed by [facility] with LDA Utility); 1213 (Retired LDA, Removed/Completed by [facility] with LDA Utility) 06/19/18 1408 by Melissa Jorge CRNFA 04/28/24 1213 by Discharge Provider, Automatic RETIRED Surgical Site 02/26/19; 0922; No ; Left, Lower; Back; injection site; 04/28/24 (Retired LDA, Removed/Completed by [facility] with LDA Utility); 1213 (Retired LDA, Removed/Completed by [facility] with LDA Utility) 02/26/19 0922 by Ugo Gomez RN 04/28/24 1213 by Discharge Provider, Automatic Peripheral IV Placement Date: 12/03/19; Placement Time: 1015; Catheter Size: 20 G; Orientation: Right; Location: Hand; Site Prep: Chlorhexidine; Insertion Attempts: 1; Patient Tolerance: Tolerated well; Removal Date: 12/03/19; Removal Time: 1714; Removal Reason: Therapy completed 12/03/19 1015 by Janiya Gregorio RN 12/03/19 1714 by Alicia Valdes RN ETT Placement Date: 12/03/19; Placement Time: 1204 (created via procedure documentation); Technique: Video laryngoscopy; Type: ETT - single; Single Lumen Tube Size: 7 mm; Cuffed: Yes; Blade Size: 3; Insertion Attempts: 1; Placement Verification: Auscultation, Capnometry; Removal Date: 12/03/19; Removal Time: 15112/03/19 1204 by Pedro Richards CRNA 12/03/19 1512 by Pedro Richards CRNA RETIRED Surgical Site 12/03/19; 1430; Le ft; Leg; 04/28/24 (Retired LDA, Removed/Completed by [facility] with LDA Utility); 1213 (Retired LDA, Removed/Completed by [facility] with LDA Utility) 12/03/19 1430 by Rachael Beard RN 04/28/24 1213 by Discharge Provider, Automatic documented in this encounter Social History Tobacco Use Types Packs/Day Years Used Date Smoking Tobacco: Former Cigarettes 0.5 25 0 05/27/1992 - 05/27/2017 Smokeless Tobacco: Never Alcohol Use Standard Drinks/Week Comments Yes 0 (1 standard drink = 0.6 oz pur e alcohol) social Comments No Sex and Gender Information Value Date Recorded Sex Assigned at Not on file 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 Gender Identity Not on file Sexual Orientation Not on file Occupation Industry Job Start Date Job End Date unemployed Not on file Not on file Not on file documented as of this encounter OR Notes * Anesthesia Postprocedure Evaluation - Pedro Richards CRNA - 12/03/2019 3:19 PM CDT Patient: Marnie Roque Procedure Summary Date: 12/03/19 Room / Location: [facility] OR [facility] OPERATING ROOM Anesthesia Start: 1149 Anesthesia Stop: 151 Procedure: DECOMPRESSION LEFT COMMON PERONEAL NERVE; DECOMPRESSION SAPHENOUS NERVE, LEFT (Left Leg Lower) Diagnosis: 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, left (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 [G57.02]) (Saphenous nerve neuropathy, left [G57.82]) Provider: Joseph Bianchi III, MD Responsible Provider: Albert Lee MD Anesthesia Type: general ASA Status: 3 Anesthesia Type: general Last vitals BP 149/91 Pulse 96 Temp 36.7 ??C (98.1 ??F) (Temporal) Resp 18 SpO2 95% Anesthesia Post Evaluation Patient location during evaluation: PACU Patient participation: complete - patient participated 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 Pain management: satisfactory to patient Airway patency: adequate and patent Evidence of recall: no Anesthetic complications: no Cardiovascular status: acceptable Respiratory status: acceptable Hydration status: acceptable Pt is: normothermic Nausea/Vomiting status: none * Anesthesia Procedure Notes - Pedro Richards CRNA - 12/03/2019 12:04 PM CDTAssociated Order(s): Airway Airway Patient location: OR Urgency: elective Date/time: 12/03/2019 12:04 PM Indications for airway management: anesthesia Difficult airway: no Staff: Supervising provider: Albert Lee MD Placed by: WILDLIFE PROTECTOR: Pedro Richards CRNA Emergent airway documentation: Risks and benefits discussed: yes Consent obtained: yes Consent given by: patient Airway prep: Preoxygenated: yes Patient position: sniffing Spontaneous ventilation during airway: absent Sedation level during airway: GA Final airway details: Final airway type: endotracheal airway Tube type: ETT ETT size: 7.0 mm Cuffed: yes Technique used for successful ETT placement: video laryngoscopy Devices/Methods used in placement: intubating stylet Video blade type: Long Blade size: 3 Cormack-Lehane (video): grade I - full view of glottis Cuff inflated with: air ETT to teeth: 22 cm Placement verified by: auscultation and CO2 detection Airway secured with: silk tape Number of attempts: 1 * Anesthesia Preprocedure Evaluation - Albert Lee MD - 12/03/2019 9:57 AM CDT Images from the original note were not included. Anesthesia Evaluation Marnie Roque is a 54 y.o. 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 Endocrine / Other + Thyroid disease - hypothyroidism + Obesity (BMI >30)- morbid obesity (BMI>40). Functional Capacity Functional capacity: <4 METs Functional capacity limited by a non-cardiovascular, non-pulmonary condition. Review of Systems + chronic pain (bilateral knees) Patient Active Problem List Diagnosis ??? Failed total knee arthroplasty (CMS/HCC) ??? Migraine ??? Anxiety ??? 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 Depression ??? Hypothyroidism ??? Saphenous nerve neuropathy, left ??? Peroneal neuropathy at knee, left ??? Complex regional pain syndrome type 1 of both lower extremities ??? Chronic postoperative pain ??? 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 Anxiety ??? Arthritis ??? Depression ??? Hypothyroidism ??? Migraines ??? Obesity Past Surgical History: Procedure Laterality Date ??? FL UPPER GI AIR CONTRAST W KUB Left 02/26/2019 ??? LIPOSUCTION EXTREMITIES arms ??? REVISION TOTAL KNEE ARTHROPLASTY Right 02/18/2018 ??? REVISION TOTAL KNEE ARTHROPLASTY Left ??? TOTAL KNEE ARTHROPLASTY Left 05/2014 ??? TOTAL KNEE ARTHROPLASTY Right 08/2015 ??? TUBAL LIGATION ??? WRIST FRACTURE SURGERY OB History No obstetric history on file. No Known Allergies Med List Status: Nurse Complete Set By: Charity Perkins RN at 11/30/2019 4:00 PM Taking? Last Dose Start Date End Date Provider diazePAM (VALIUM) 5 mg tablet 12/03/2019 12/16/17 -- Historical Provider, levothyroxine sodium (TIROSINT) 112 mcg capsule 12/02/2019 12/30/17 -- Historical Provider, oxyCODONE-acetaminophen (PERCOCET) 5-325 mg per tablet 209911/23/19 -- Olegario Adair MD Take 1 tablet by mouth every 6 (six) hours as needed for pain topiramate (TOPAMAX) 25 mg tablet 12/03/2019 12/30/17 -- Historical Provider, Current Facility-Administered Medications: ??? ceFAZolin (ANCEF) 1 gram/10 mL in sterile water (premix) 2,000 mg, 2,000 mg, intravenous, Once ??? dexAMETHasone (DECADRON) injection solution 10 mg, 10 mg, intravenous, Once ??? Lactated Ringer's (LR) infusion, 30 mL/hr, intravenous, Continuous ??? sodium chloride 0.9% flush 0.5-20 mL, 0.5-20 mL, intra-catheter, PRN ??? sodium chloride 0.9% flush 0.5-20 mL, 0.5-20 mL, intra-catheter, PRN Social History Tobacco Use Smoking Status Former Smoker ??? Packs/day: 0.50 ??? Start date: 05/27/1992 ??? Last attempt to quit: 05/27/2017 ??? Years since quittin.5 Smokeless Tobacco Never Used Substance and Sexual Activity Alcohol Use Yes Comment: social Substance and Sexual Activity Drug Use No Family History Problem Relation Age of Onset ??? Arthritis Other ??? Mental illness Other Vitals: 12/03/19 0932 BP: 149/91 Pulse: 96 Resp: 18 Temp: 36.6 ??C (97.9 ??F) SpO2: 95% Lab Results Component Value Date WBC 13.9 (H) 06/20/2018 HGB 11.6 (L) 06/20/2018 HCT 36.7 06/20/2018 MCV 91.8 06/20/2018 LABPLAT 274 06/20/2018 Lab Results Component Value Date GLUCOSE 159 06/20/2018 CALCIUM 9.4 06/20/2018 SODIUM 142 06/20/2018 POTASSIUM 4.3 06/20/2018 CO2 22 06/20/2018 CHLORIDE 105 06/20/2018 BUNSER 14 06/20/2018 CREATININE 0.60 06/20/2018 DOS Physical Exam Medical history, medications, and allergies reviewed. Attestation: I endorse the findings of the anesthesia pre-evaluation assessment dated: 12/03/2019. Airway Exam: Mallampati: II Cervical ROM: FROM TM distance: normal Jaw ROM: full Cardiovascular Exam: Rate: regular Rhythm: regular Pulmonary Exam: LCTA, bilat EENT Exam: trachea midline Dental Exam: Missing Skin Exam: Skin is warm. Current state: Patient's current state is cooperative and interactive. Anesthesia Plan ASA 3 Planned anesthesia: General Team communication plan: oral ET tube Induction: Induction: intravenous. Postoperative Plan: Postoperative administration opioids intended. No postoperative mechanical ventilation intended. Patient's planned disposition post procedure is Outpatient. Informed Consent: Discussed plan with WILDLIFE PROTECTOR and attending. Anesthesia plan and risks discussed with patient. Consent and Attending signature: I and/or my designee have discussed the anesthesia plan, benefits, possible alternatives, parental presence at time of induction (if indicated), and clinically relevant risks that may include dental injury, unintentional awareness, and/or other complications. The patient and/or parent/legal guardian understand, and agree to proceed. All questions answered. documented in this encounter Plan of Treatment Not on file documented as of this encounter Procedures Procedure Name Priority Date/Time Associated Diagnosis Comments AZ AN ELECTIVE ENDOTRACHEAL AIRWAY Routine 12/03/2019 12:04 PM CDT documented in this encounter Results * AZ AN ELECTIVE ENDOTRACHEAL AIRWAY (12/03/2019 12:04 PM CDT) Narrative Pedro Richards CRNA - 12/03/2019 12:04 PM CDT Pedro Richards CRNA ? 12/03/2019 12:05 PM Airway Patient location: OR Urgency: elective Date/time: 12/03/2019 12:04 PM Indications for airway management: anesthesia Difficult airway: no Staff: Supervising provider: Albert Lee MD Placed by: WILDLIFE PROTECTOR: Pedro Richards CRNA Emergent airway documentation: Risks and benefits discussed: yes Consent obtained: yes Consent given by: patient Airway prep: Preoxygenated: yes Patient position: sniffing Spontaneous ventilation during airway: absent Sedation level during airway: GA Final airway details: Final airway type: endotracheal airway Tube type: ETT ETT size: 7.0 mm Cuffed: yes Technique used for successful ETT placement: video laryngoscopy Devices/Methods used in placement: intubating stylet Video blade type: Long Blade size: 3 Cormack-Lehane (video): grade I - full view of glottis Cuff inflated with: air ETT to teeth: 22 cm Placement verified by: auscultation and CO2 detection Airway secured with: silk tape Number of attempts: 1 Albert Lee MD ANESTHESIA ORDERABLES Final Result documented in this encounter Visit Diagnoses Not on filedocumented in this encounter Administered Medications Inactive Administered Medications - up to 3 most recent administrations Medication Order MAR Action Action Date Dose Rate Site ceFAZolin (ANCEF) 1 gram/10 mL in sterile water (premix) 2,000 mg 2,000 mg, intravenous, at 400 mL/hr, Administer over 3 Minutes, Once, On Nadya 12/03/19 at 1015, For 1 dose, Pre-Op, Administer within 60 minutes of incision., Indications: Prophylaxis, SurgicalIndications:Prophylaxis , Surgical Given 12/03/2019 12:08 PM CDT 2,000 mg diphenhydrAMINE (BENADRYL) injection Administer over 2 Minutes, As needed, Starting on Nadya 12/03/19 at 1205, Anesthesia Intra-op Given 12/03/2019 12:05 PM CDT 12.5 mg fentaNYL (SUBLIMAZE) preservative free injection intravenous, As needed, Starting on Nadya 12/03/19 at 1155, Anesthesia Intra-op Given 12/03/2019 11:55 AM CDT 100 mcg glycopyrrolate (ROBINUL) injection intravenous, Administer over 1 Minutes, As needed, Starting on Nadya 12/03/19 at 1504, Anesthesia Intra-op Given 12/03/2019 3:04 PM CDT 0.6 mg HYDROmorphone (DILAUDID) injection Administer over 2 Minutes, As needed, Starting on Nadya 12/03/19 at 1248, Anesthesia Intra-op Given 12/03/2019 3:11 PM CDT 0.2 mg Given 12/03/2019 1:24 PM CDT 0.2 mg Given 12/03/2019 1:04 PM CDT 0.4 mg Lactated Ringer's (LR) infusion 30 mL/hr, intravenous, Continuous, Starting on Nadya 12/03/19 at 1015, Pre-Op New Bag 12/03/2019 2:30 PM CDT New Bag 12/03/2019 12:08 PM CDT Rate/Dose Verify 12/03/2019 11:49 AM CDT lidocaine (XYLOCAINE) 20 mg/mL (2 %) preservative free injection As needed, Starting on Nadya 12/03/19 at 1155, Anesthesia Intra-op Given 12/03/2019 11:55 AM CDT 100 mg midazolam (VERSED) preservative free injection intravenous, Administer over 2 Minutes, As needed, Starting on Nadya 12/03/19 at 1149, Anesthesia Intra-op Given 12/03/2019 11:49 AM CDT 2 mg neostigmine (PROSTIGMIN) injection intravenous, Administer over 3 Minutes, As needed, Starting on Nadya 12/03/19 at 1504, Anesthesia Intra-op Given 12/03/2019 3:04 PM CDT 4 mg ondansetron (ZOFRAN) injection intravenous, Administer over 2 Minutes, As needed, Starting on Nadya 12/03/19 at 1427, Anesthesia Intra-op Given 12/03/2019 2:27 PM CDT 4 mg propofoL (DIPRIVAN) IV intravenous, As needed, Starting on Nadya 12/03/19 at 1155, Anesthesia Intra-op Given 12/03/2019 11:55 AM CDT 200 mg rocuronium (ZEMURON) injection intravenous, As needed, Starting on Nadya 12/03/19 at 1205, Anesthesia Intra-op Given 12/03/2019 12:05 PM CDT 40 mg succinylcholine (ANECTINE) injection intravenous, As needed, Starting on Nadya 12/03/19 at 1155, Anesthesia Intra-op Given 12/03/2019 11:55 AM CDT 200 mg documented in this encounter Care Teams Plant Packer Relationship Specialty Start Date End Date René Smallwood MD PCP - General Family Medicine 12/02/17 02/10/20 documented as of this encounter
--- OUTSIDE RECORDS SUMMARY | 2024-05-11 17:34 | XMS_ITS | Encounter Summary ---
Author Organization [facility] Address [address] [place] [address] Phone Care Team Providers Care Concrete Tile Machine Operator Name Role Phone René Smallwood MD Primary Care Provider [phone] René Smallwood MD Unavailable [phone] Reason for Referral * Diagnostic Imaging (Routine) - Closed Specialty Diagnoses / Procedures Referred By Contac t Referred To Contact Diagnoses Low back pain, non-specific Procedures XR Spine Lumbar Ap Lat Flex Ext min 4 Views Suzan Sanches NP [address] [place] [address] Phone: tel: fax: [address] [address] Referral ID Status Reason Start Date Expiration Date Visits Re quested Visits Authorized [id number] Closed 02/19/2020 03/20/2021 1 1 Reason for Visit * Consultation (Routine) - Closed Specialty Diagnoses / Procedures Referred By Contac t Referred To Contact Neurosurgery Diagnoses Lumbar disc herniation René Smallwood MD Phone: tel: fax: [facility] (All Locations) Referral ID Status Reason Start Date Expiration Date V isits Requested Visits Authorized [id number] Closed Specialty Services Required 02/18/2020 02/17/2021 12 12 Encounter Details Date Type Department Care Team (Late st Contact Info) Description 02/22/2020 1:45 PM CDT Office Visit [facility] [address] [facility] [address] [place] [address] Suzan Sanches NP [address] [place] [address] Chronic midline low back pain with bilateral sciatica (Primary Dx); Leg pain, lateral, left; Bilateral chronic knee pain Social History Tobacco Use Types Packs/Day Years Used Date Smoking Tobacco: Former Cigarettes 0.3 23.5 0 05/27/1994 - 12/11/2017 Smokeless Tobacco: Never Alcohol Use Standard Drinks/Week Comments Yes 0 (1 standard drink = 0.6 oz pur e alcohol) social Comments No Sex and Gender Information Value Date Recorded Sex Assigned at Not on file Legal Sex 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 Gender Identity Not on file Sexual Orientation Not on file Occupation Industry Job Start Date Job End Date unemployed/disability Not on file Not on file Not on file documented as of this encounter Last Filed Vital Signs Vital Sign Reading Time Taken Comments Blood Pressure 121/72 02/22/2020 1:41 PM CDT Pulse 80 02/22/2020 1:41 PM CDT Temperature - - Respiratory Rate - - Oxygen Saturation - - Inhaled Oxygen Concentration - - Weight 97.5 kg (215 lb) 02/22/2020 1:41 PM CDT Height 154.9 cm (5' 1 ) 02/22/2020 1:41 PM CDT Body Mass Index 40.62 02/22/2020 1:41 PM CDT documented in this encounter Progress Notes * Suzan Sanches NP - 02/22/2020 1:45 PM CDT NEW PATIENT VISIT CHIEF COMPLAINT Low back and leg pain HISTORY OF PRESENT ILLNESS Marnie Roque is a pleasant 54 y.o. female with a medical history of anxiety, osteoarthritis, depression, hyperthyroidism, migraines and obesity. Ms. Roque has a complex bilateral knee history with 6 total operations, 3 on each lower extremity. The patient's last to revisions were performedby Dr. Ba in 2017 ad 2018. In a follow-up with him, the patient complained of persistent lower extremity pain, so an EMG was performed in November of 2018 showing a mild S1 radiculopathy on the left.The patient was referred over to Dr. Chávez and she underwent a L5-S1 MARIAM that did not improve her symptoms. She continued her injection management with Dr. Christiansen and in June of 2018 she underwent a left L4-5, L5-S1 SNRI that improved her pain for a couple of weeks. She subsequently underwent a bilateral L4-5 transforaminal epidural steroid injection which she received no relief from and last underwent a L4-5, L5-S1 bilateral MARIAM in August of 2019 with no relief. Most recently, the patient u nderwent a decompression of her left peroneal nerve and saphenous nerve on December 03, [address] Bianchi. Today, the patient complains of midline low back pain along with intermittent bilateral buttock pain that shoots down bilateral posterior thighs and stops at her knee. She explains that she only experiences this posterior thigh pain when she is flexing forward. She additionally experiences severe bilateral knee pain and left lateral knee pain. Ms. Roque explains that if she presses on her left lateral knee, she can sometimes experience radiating pain down her anterior winchester. After inquiring about which pain was the most severe, she believes that her bilateral knee and left lateral knee pain is what causes her the most discomfort. She denies any numbness, tingling or kosta weakness in bilateral lower extremities, incontinence or previous spine surgery. She has noticed that her balance has worsened over the past 6 months and she has difficulties initiating her gait. She does not take any medication for her pain and states that if she is sitting with her legs elevated, her pain is improved. She has previously taken Lyrica, gabapentin and Cymbalta with no improvement in her pain. Of note, the patient denies a smoking history. PAST MEDICAL HISTORY She has a past medical history of Anxiety, Arthritis, Depression, Hyperthyroidism, Hypothyroidism, Migraines, and Obesity. She also has no past medical history of Acute respiratory failure requiring reintubation (CMS/HCC), Awareness under anesthesia, Delayed emergence from general anesthesia, Hard to intubate, Malignant hyperthermia, Pneumothorax, PONV (postoperative nausea and vomiting), Postoperative delirium, or Sleep apnea. PAST SURGICAL HISTORY She has a past surgical history that includes Tubal ligation; Wrist fracture surgery; Total knee arthroplasty (Left, 05/2014); Total knee arthroplasty (Right, 08/2015); Revision total knee arthroplasty (Right, 02/18/2018); FL Upper GI Air Contrast W KUB (Left, 02/26/2019); Revision total knee arthroplasty (Left); Liposuction extremities; and Peroneal nerve decompression (Left, 11/2019). FAMILY HISTORY Her family history includes Arthritis in an other family member; Cancer in her maternal grandmother; Mental illness in an other family member. MEDICATIONS Current Outpatient Medications: ??? diazePAM (VALIUM) 5 mg tablet, Take 5 mg by mouth nightly as needed. at bedtime. , Disp: , Rfl:5 ??? levothyroxine sodium (TIROSINT) 112 mcg capsule, Take 112 mcg by mouth every morning. , Disp: ,Rfl: ??? oxyCODONE-acetaminophen (PERCOCET) 5-325 mg per tablet, Take 1 tablet by mouth every 4 (four) hours as needed for pain (Take only if having residual pain after taking ibuprofen), Disp: 10 tablet,Rfl: 0 ??? rizatriptan (MAXALT) 10 mg tablet, , Disp: , Rfl: ??? topiramate (TOPAMAX) 25 mg tablet, Take 100 mg by mouth 2 (two) times a day , Disp: , Rfl: ??? topiramate (TOPAMAX) 50 mg tablet, Take 100 mg by mouth 2 (two) times a day, Disp: , Rfl: ALLERGIES She has No Known Allergies. SOCIAL HISTORY She reports that she quit smoking about 2 years ago. Her smoking use included cigarettes. She started smoking about 25 years ago. She smoked 0.25 packs per day. She has never used smokeless tobacco. She reports current alcohol use. She reports that she does not use drugs. REVIEW OF SYSTEMS Review of Systems A complete review of 10 systems was completed and negative unless noted above in history of presentillness or intake questionnaire. Objective VITAL SIGNS BP 121/72 Pulse 80 Ht 154.9 cm (5' 1 ) Wt 97.5 kg (215 lb) BMI 40.62 kg/m?? PHYSICAL EXAM On the exam she awake, alert and in no apparent distress. The patient was very tearful throughout the whole physical exam.. Cranial nerves 2-12 were grossly intact, no pronator drift. Umanzor's or Babinski's reflexes were absent. Her gait was slow and antalgic, steady. The patient was unable to perform tandem gait and Romberg was within normal limits. She had difficulty with heel and toe walking.Normal range of motion on flexion-extension and rotation of neck. Reduced range of motion on flexion, extension and lateral bending of the lumbosacral spine, pain with extension, rotation and flexion. Straight leg raise negative bilateral and Spurling's maneuver negative. No significant pain to palp ation of her cervical thoracic or lumbar midline and paraspinous muscular. Cecelia negative bilaterally, but this did cause a significant amount of pain in bilateral knees.. Sensation intact to bilateral upper and lower extremities to touch & pinprick. the patient had extreme tightness in bilateral hips. Right strength Deltoid: 5/5 strength Bicep: 5/5 strength. Tricep: 5/5 strength. Wrist extension: 5/5 strength.Wrist flexion: 5/5 strength.Dielectric Press Operator: 5/5 strength.Hand intrinsics: 5/5 strength Left strength Deltoid: 5/5 strength.Bicep: 5/5 strength. Tricep: 5/5 strength. Wrist extension: 5/5 strength. Wrist flexion: 5/5 . Dielectric Press Operator: 5/5 strength. Hand intrinsics: 5/5 strength. Right reflexes Bicep reflex: 2+ Tricep reflex: 2+ Patellar reflex: 0 Achilles reflex: 2+ Left reflexes Bicep reflex: 2+ Tricep reflex: 2+ Patellar reflex: 0 Achilles reflex: 2+ Spine Right strength Right iliopsoas: 5/5 strength. Right quadricep: 5/5 strength. Right hamstrin/5 strength. Right gastrocsoleus: 5/5 strength. 5/5 dorsiflexion. 5/5 planter flexion. 5/5 EHL. Left strength Left iliopsoas 5/5 strength. Left quadricep: 5/5 strength. Left hamstrin/5 strength. Left gastrocsoleus: 5/5 strength. 5/5 dorsiflexion. 5/5 planter flexion. 5/5 EHL. REVIEW OF IMAGES Xr Spine Lumbar Ap Lat Flex Ext Min 4 Views Result Date: 02/22/2020 Normal radiographs of the lumbar spine Dictated by: Shaheed Portillo M.D. MRI of the lumbar spine without contrast obtained on February 14, 2020: There is evidence of mild left foraminal stenosis at L4-5 from small disc bulge and mild bilateral foraminal stenosis is noted at L5-S1. Plan I had a long discussion with the patient and her spouse about her current imaging and complaints. At this time, I explained that her midline low back pain and bilateral posterior leg pain could potentially be improved with an intervention at L5-S1. The patient is not interested in a procedure for the symptoms as her main complaint is her bilateral knee and left lateral knee pain. I would like herto undergo aggressive physical therapy to stretch out bilateral hip hip and work on her left IT band. The patient is a bit frustrated as she feels as if she has been passed around in a pokagon from service to service. I will touch base with the patient via [employer] in approximately 4-6 weeks to check in on her progress and I have encouraged her to call with any new or worsening symptoms, questions or concerns at any time. Suzan Sanches NP documented in this encounter Plan of Treatment Not on file documented as of this encounter Results * XR Spine Lumbar Ap Lat Flex Ext min 4 Views (02/22/2020 1:33 PM CDT) Anatomical Region Laterality Modality L-spine N/A Computed Radiogr aphy 02/22/2020 2:24 PM CDT Impressions 02/22/2020 5:20 PM CDT Normal radiographs of the lumbar spine Dictated by: Shaheed Portillo M.D. The radiology attending physician has personally reviewed this study, and had reviewed and/or edited this written report and agrees with it. Electronically signed by: Cici Collazo M.D. Narrative 02/22/2020 5:20 PM CDT EXAMINATION: XR SPINE LUMBAR AP LAT FLEX EXT MIN 4 VIEWS HISTORY: Low back pain FINDINGS: 4 radiographs of the lumbar spine are submitted for interpretation with comparison made to radiographs dated 09/03/2018 and MRI dated 01/16/2019. Alignment is normal. Joint spaces are maintained. ??No acute fracture. Vertebral body heights are well-maintained. ??Normal motion of the lumbar spine with bending. Procedure Note Cici Collazo MD - 02/22/2020 EXAMINATION: XR SPINE LUMBAR AP LAT FLEX EXT MIN 4 VIEWS HISTORY: Low back pain FINDINGS: 4 radiographs of the lumbar spine are submitted for interpretation with comparison made to radiographs dated 09/03/2018 and MRI dated 01/16/2019. Alignment is normal. Joint spaces are maintained. No acute fracture. Vertebral body heights are well-maintained. Normal motion of the lumbar spine with bending. IMPRESSION: Normal radiographs of the lumbar spine Dictated by: Shaheed Portillo M.D. The radiology attending physician has personally reviewed this study, and had reviewed and/or edited this written report and agrees with it. Electronically signed by: Cici Collazo M.D. Suzan Sanches BONE GLUE MAKER IMG XR PROCEDURES Final Re sult documented in this encounter Visit Diagnoses Diagnosis Chronic midline low back pain with bilateral sciatica- Primary Leg pain, lateral, left Bilateral chronic knee pain Low back pain, non-specific documented in this encounter Orders Outpatient Referral Count Last Ordered Date Fir st Ordered Date AMB REFERRAL TO NEUROSURGERY 1 02/22/2020 documented in this encounter Care Teams Concrete Tile Machine Operator Relationship Specialty Start Date End Date René Smallwood MD PCP - General Family Medicine 02/11/20 René Smallwood MD Family Medicine 02/11/20 documented as of this encounter
--- OUTSIDE RECORDS SUMMARY | 2024-05-11 17:34 | XMS_ITS | Encounter Summary ---
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 - 05/10/2021 11:59 PM LAMINATE FLOOR INSTALLER Hospital Encounter [facility] [address] [place] [address] [place] [address] [facility] [address] [place] [address] [place] [address] [facility] [address] [place], [place] [id number] Chronic pain of both knees (Primary Dx); Complex regional pain syndrome type 1 of both lower extremities; Chronic pain syndrome; Chronic postoperative pain Discharge Disposition: Discharge to home or [...] on file Legal Sex Female 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 Gender Identity Not on file Sexual Orientation Not on file Occupation Industry Job Start Date Job End Date unemployed/disability Not on file Not on file Not on file documented as of this encounter Last Filed Vital Signs Vital Sign Reading Time Taken Comments Blood Pressure 113/56 05/10/2021 4:16 PM LAMINATE FLOOR INSTALLER Pulse 102 05/10/2021 4:16 PM LAMINATE FLOOR INSTALLER Temperature - - Respiratory Rate 16 05/10/2021 4:16 PM LAMINATE FLOOR INSTALLER Oxygen Saturation 100% 05/10/2021 4:16 PM LAMINATE FLOOR INSTALLER Inhaled Oxygen Concentration - - Weight - [...] day as needed for pain 60 tablet 05/10/2021 2 rizatriptan (MAXALT) 10 mg tablet 02/17/2020 2 topiramate (TOPAMAX) 25 mg tabletIndication s:Migraine Prevention Take 100 mg by mouth 2 (two) times a day 12/30/2017 2 topiramate (TOPAMAX) 50 mg tablet Take 100 mg by mouth 2 (two) times a day 01/26/2020 3 documented as of this encounter Discharge Disposition Disposition Code Departure Means Destination Discharge to home or self care documented in this encounter Progress Notes * Vishal Garza, ULTRASOUND SPEC - 05/10/2021 4:00 PM CST Patient Name: Marnie Roque : 1965 Today's Date: 05/10/2021 PCP: René Smallwood MD Referring: No ref. provider found Chief Complaint Patient presents with ??? Knee Pain ??? Follow-up HPI Patient return for follow-up visit. She has continued complaints of bilateral knee pain left greater than right. Since her last visit she has been using the oxycodone on as-needed basis not quite once daily with 70% benefit in reduction of her pain. She does remark it does not last long enough. Marco Antonio interested in possible geniculate nerve block and ablation or peripheral nerve stim. No Known Allergies Past Medical History: Diagnosis [...] date: 05/27/1994 Quit date: 12/11/2017 Years since quittin.4 ??? Smokeless tobacco: Never Used Substance and [...] ??? Cancer Maternal Grandmother HOME MEDICATIONS : diazePAM (VALIUM) 5 mg tablet levothyroxine sodium (TIROSINT) 112 mcg capsule oxyCODONE-acetaminophen (PERCOCET) 5-325 mg per tablet oxyCODONE-acetaminophen (PERCOCET) 5-325 mg per tablet oxyCODONE-acetaminophen (PERCOCET) 5-325 mg per tablet oxyCODONE-acetaminophen (PERCOCET) 5-325 mg per tablet rizatriptan (MAXALT) 10 mg tablet topiramate (TOPAMAX) 25 mg tablet topiramate (TOPAMAX) 50 mg tablet [...] joint swelling and myalgias. Skin: Negative. Neurological: Positive for weakness. Negative for dizziness, syncope, light- headedness, numbness and headaches. Hematological: Negative. Psychiatric/Behavioral: Negative. Physical Exam Vitals: 05/10/21 1616 BP: 113/56 Pulse: 102 Resp: 16 SpO2: 100% There is no height or [...] weight loss and exercise for management. Options were reviewed with the patient and her daughter including geniculate nerve block and possible ablation or her positive geniculate nerve block and pursue peripheral nerve stim. Patient seems to favor per pursuing the peripheral nerve stimulation to the potential for longer term benefit. We will initially schedule her for left geniculate nerve block. We will provided with prescription for oxycodone be taken twice daily as needed for moderate to severe pain. She was advised to discontinue the Valium which she rarely takes. Finally we will prescribe Xanax to be taken immediately prior to geniculate nerve block to reduce anxiety. Follow-up postprocedure. This dictation was performed using M*Modal dictation. There may be some letterer variances which are not appreciated or corrected in this note. NATE FLOOR INSTALLER documented in this encounter Plan of Treatment Not on file documented as of this encounter Visit Diagnoses Diagnosis Chronic pain of both knees- Primary Complex regional pain syndrome type 1 of both lower extremities Chronic pain syndrome Chronic postoperative pain Other chronic postoperative pain documented in this encounter Discontinued Medications Medication Sig Discontinue Reason Start Date End Da te oxyCODONE-acetaminophen (PERCOCET) 5-325 mg per tabletIndications:Pain Take 1 tablet by mouth daily as needed for pain 02/09/2021 05/10/2021 oxyCODONE-acetaminophen (PERCOCET) 5-325 mg per tabletIndications:Pain Take 1 tablet by mouth every 4 (four) hours as needed for pain (Take only if having residual pain after taking ibuprofen) 12/03/2019 05/10/2021 oxyCODONE-acetaminophen (PERCOCET) 5-325 mg per tabletIndications:Pain Take 1 tablet by mouth every 4 (four) hours as needed for pain 04/08/2020 05/10/2021 documented as of this encounter Care Teams Night Stocker Relationship Specialty Start Date End Date René Smallwood MD PCP - General Family Medicine 02/11/20 René Smallwood MD Family Medicine 02/11/20 documented as of this encounter
--- OUTSIDE RECORDS SUMMARY | 2024-05-11 17:34 | XMS_ITS | Encounter Summary ---
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 Operating Room [address] [place] [id number] Joseph Bianchi III, MD [address] [phone] [place] [address] DECOMPRESSION LEFT COMMON PERONEAL NERVE; DECOMPRESSION SAPHENOUS NERVE, LEFT Surgery Details Date/Time Status Location OR Service Patient Class Case Cl ass Case Type Trauma Case? 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 Gender Identity Not on file Sexual Orientation Not on file Occupation Industry Job Start Date Job End Date unemployed Not on file Not on file Not on file documented as of this encounter Last Filed Vital Signs Vital Sign Reading Time Taken Comments Blood Pressure 149/91 12/03/2019 9:32 AM CDT Pulse 96 12/03/2019 9:32 AM CDT Temperature 36.6 ??C (97.9 ??F) 12/03/2019 9:32 AM CD T Respiratory Rate 18 12/03/2019 9:32 AM CDT Oxygen Saturation 95% 12/03/2019 9:32 AM CDT Inhaled Oxygen Concentration - - Weight 97.7 kg (215 lb 6.2 oz) 12/03/2019 9:32 A M CDT Height 154.9 cm (5' 1 ) 12/03/2019 9:32 AM CDT Body Mass Index 40.7 12/03/2019 9:32 AM CDT documented in this encounter Discharge Instructions * Discharge Instructions* Joseph Bianchi III, MD - 12/03/2019 3:44 PM CDT Dear Marnie, Today you had decompression of the left common peroneal and saphenous nerves. Everything went greatduring surgery. I could see clear compression on the nerves, so I hope that this decompression willbe helpful for your pain. Below are your instructions: Leave the Benton wrap on for 48 hours, and then you may remove all of your dressings and shower like normal. You have a drain coming out of her thigh to remove excess fluid. You need to strip the drain 4 times a day to milk fluid through the drain so it does not clot. We will remove the drain for you in the office at your follow-up visit. You should call our office 1 year drain is putting out less than 30 cc every 24 hours, as this is the point where we will remove it. It is okay for you to walk, but just a little bit around the house. Most of the time, you should belaying down with your toes above your nose. This will help significantly with healing, and reduce your risk of complications. You do however, want to keep a pillow under your knee so that your knee is not totally straightened out, as straightening the knee will pull on the nerve. I am looking forward to seeing you back in the office in 2 weeks or so to check up on you. Remember, you may have immediate pain relief, or it may take several weeks or months to work. Either way, your going to have acute pain from surgery, and that is normal. So try to relax and do not worry too much that surgery did not work. Call [phone] for an appointment with our office. * Attachments The following attachments cannot be sent through Care Everywhere. * Ibuprofen (By mouth) ([place]) * Oxycodone/Acetaminophen (By mouth) ([place]) * General Anesthesia (Discharge Care) ([place]) * [facility] (Discharge Care) ([place]) documented in this encounter Medications at Time of Discharge ibuprofen (ADVIL,MOTRIN) 600 mg tabletIndication s:Pain Take 1 tablet (600 mg total) by mouth every 8 (eight) hours for 3 days 14 tablet 1 12/03/2019 12/06/2019 diazePAM (VALIUM) 5 mg tabletIndication s:anxiety Take 5 mg by mouth nightly as needed at bedtime. 5 12/16/2017 04/09/2023 levothyroxine sodium (TIROSINT) 112 mcg capsuleIndicatio ns:hypothyroidis m Take 1 capsule (112 mcg total) by mouth every morning 12/30/2017 04/09/2023 oxyCODONE-acetam inophen (PERCOCET) 5-325 mg per tabletIndication s:Pain Take 1 tablet by mouth every 6 (six) hours as needed for pain 28 tablet 11/23/2019 01/08/2020 oxyCODONE-acetam inophen (PERCOCET) 5-325 mg per tabletIndication s:Pain Take 1 tablet by mouth every 4 (four) hours as needed for pain (Take only if having residual pain after taking ibuprofen) 10 tablet 12/03/2019 05/10/2021 topiramate (TOPAMAX) 25 mg tabletIndication s:Migraine Prevention Take 100 mg by mouth 2 (two) times a day 12/30/2017 07/12/2021 documented as of this encounter Ordered Prescriptions Prescription Sig Dispense Quantity Refills Last Filled Start Date End Date ibuprofen (ADVIL,MOTRIN) 600 mg tabletIndications: Pain Take 1 tablet (600 mg total) by mouth every 8 (eight) hours for 3 days 14 tablet 1 12/03/2019 0 oxyCODONE-acetamin ophen (PERCOCET) 5-325 mg per tabletIndications: Pain Take 1 tablet by mouth every 4 (four) hours as needed for pain (Take only if having residual pain after taking ibuprofen) 10 tablet 12/03/2019 1 documented in this encounter Discharge Disposition Disposition Code Departure Means Destination Discharge to home or self care documented in this encounter H&P Notes * Joseph Bianchi III, MD - 12/03/2019 11:35 AM CDT CC: Chronic bilateral knee and leg pain ?? HPI: This unfortunate 54-year-old female has a complex pain problem involving both knees and legs. She happens to be the cousin of 1 of my other patients, who I happened to perform peroneal and tibial nerve decompression on after a traumatic incident. Today, she brought me a video of that patient jumping up and down on 1 leg; the leg that we worked on. So, we started out on a positive note, and she ishopeful that I can help her. ?? She underwent bilateral total knee replacement that was complicated by mechanical failure or malpositioning, and required several revisions surgeries. She has had 3 knee replacement surgeries on the right side, and 4 on the left side. Her initial surgeon was at [facility], and then ultimately, Dr. Ba did her final revisions on each side, and achieved good correction of the by mechanical deformity. She does note that she feels she has a slight leg length discrepancy, although it is much better than it was before Dr. Ba operated on her. ?? So after all that, she is stable from the biomechanical point of view, and does not need any further joint work. However, she has severe, debilitating pain in both legs all the time. The pain is centered around the knee joint on both sides, but on the left side includes a radiating, neuropathic component, that travels proximally between the hip and the knee, and then distally from the knee down to the ankle and also retrograde from the knee up towards the hip. Separately, the knees themselves are painful, which she describes as a constant squeezing pain of both joints. She has difficulty walking, despite bio mechanical stability, and uses crutches or an assistive device to walk. She has a little bit of trouble explaining exactly why she can not walk, but she feels unsteady, and unable to walk without assistive devices. As well, the pain. ?? Specific description of her pain quality is throbbing, aching, shooting, squeezing, and in describea bbl. She rates her average level of pain in the last month as an 8 to 9/10. Her worst level of pain in the last week is a 9/10 on the right, and a 9/10 on the left. The pain includes both knees, but on the left side, includes a radiating component on the lateral aspect of the leg between the kneeand foot, and the knee in the proximal thigh. The pain is affected her quality of life 100% and caused her to feel 100% depressed. 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 She has 3 daughters and multiple grandchildren, and she is not able to be involved in the Grand children's lives or care for them at all, which is very upsetting to her. She says she has gained a significant amount of weight due to the decreased mobility. She is not but was in a cohabitating relationship, however, that is ending, and she is about to move out on her own. ?? She currently feels 100% frustrated, and 80-90% angry. Her level of stress in the last month she rates as a 9/10. At home, she does not cope very well with the stress. She currently is not working. She describes the pain as having a slow progressive onset. She has had greater than for surgical procedures to try and eliminate the cause of the pain. The pain is worsened by use and movement. Whetherdoes not have any effect on the pain. She does report trouble falling asleep or awakening from sleep due to pain; she has trouble falling sleep due to pain most nights of the week, and is awakened from sleep by pain more than 3 times per week. Pain is affected her intimate personal relationships. She is not involved in any legal action regarding the pain. ?? She has had a number of epidural steroid injections. Most of these she says were not effective. Oneof them did make her feel somewhat better for 4 days. ? PMH: ?? Medical History Past Medical History: Diagnosis Date ??? Anxiety ? Arthritis ? Depression ? Migraines ? Obesity ? PSH: ?? Surgical History Past Surgical History: Procedure Laterality Date ??? FL UPPER GI AIR CONTRAST W KUB Left 02/26/2019 ??? REVISION TOTAL KNEE ARTHROPLASTY Right 02/18/2018 ? TOTAL KNEE ARTHROPLASTY Left 05/2014 ??? TOTAL KNEE ARTHROPLASTY Right 08/2015 ??? TUBAL LIGATION ? WRIST FRACTURE SURGERY ? Medications: ?? Current Medications Current Outpatient Medications Medication Sig Dispense Refill ??? diazePAM (VALIUM) 5 mg tablet Take 5 mg by mouth nightly as needed. at bedtime. ?? 5 ??? DULoxetine DR (CYMBALTA) 60 mg capsule Take by mouth daily ?? 3 ??? gabapentin (NEURONTIN) 300 mg capsule TAKE 1 CAPSULE BY MOUTH THREE TIMES A DAY 90 capsule 0 ??? hydrOXYzine (VISTARIL) 25 mg capsule Take 1 capsule (25 mg total) by mouth 3 (three) times a day as needed for anxiety. 60 capsule 1 ??? levothyroxine sodium (TIROSINT) 112 mcg capsule Take 112 mcg by mouth every morning. ? lidocaine (XYLOCAINE) 5 % ointment ? meloxicam (MOBIC) 15 mg tablet TAKE 1 TABLET BY MOUTH EVERY DAY 30 tablet 2 ??? oxyCODONE-acetaminophen (PERCOCET) 5-325 mg per tablet Take 1-2 tablets by mouth every 4 (four)hours as needed for pain. 70 tablet 0 ??? salicylic acid 3 % shampoo Apply topically. ? senna-docusate (PERICOLACE) 8.6-50 mg Take 2 tablets by mouth 2 (two) times a day. May increaseto 4 tablets twice daily if needed. HOLD medication for diarrhea. 80 tablet 1 ??? topiramate (TOPAMAX) 25 mg tablet Take 50 mg by mouth 2 (two) times a day. ? warfarin (COUMADIN) 2 mg tablet Take 2.5 tablets (total dose = 5 mg) orally daily at 5pm to thin blood for 4 weeks. 75 tablet 1 ?? No current facility-administered medications for this visit. ? Allergies: ?? No Known Allergies ?? Social History: ?? Social History ?? Tobacco Use ??? Smoking status: Former Smoker ? Packs/day: 0.50 ? Start date: 05/27/1992 ? Last attempt to quit: 05/27/2017 ? Years since quittin.4 ??? Smokeless tobacco: Never Used Substance Use Topics ??? Alcohol use: Yes ? Comment: social ? FamilyHistory: ?? Family History Problem Relation Age of Onset ??? Arthritis Other ? Mental illness Other ? Review of Systems A comprehensive review of systems was completed by the patient, recorded in the chart (attached), and reviewed by me. ?? Vitals: Recorded and reviewed in Epic ?? Physical Exam: General: Well-developed, well-nourished female in NAD who appears appropriate to their stated age. Obesity is noted. Alert and oriented x 3. Pleasant and cooperative. However, she is quite tearful and visibly upset. When she begins talking about her pain, she moves to tears almost immediately. We went through a number of Kleenexes. Head: Normocephalic and atraumatic. Eyes: Sclerae anicteric. Extra-ocular movements intact. Moist conjunctiva. No lid lag. Mouth: Mucous membranes are moist. No mucosal ulcerations noted. Neck: The neck is supple, without lymphadenopathy or JVD. Trachea midline. Neuro: Speech is fluent. Cranial nerves II-XII are intact. Psych: Appropriate affect. Judgment and insight are appropriate. Oriented to person, place, and time. Heart: Rate and rhythm regular, no m/r/gs. No peripheral edema or varicosities noted. Chest: Breathing unlabored. CTA with normal respiratory effort and no intercostal retractions. Abdomen: Soft, non-tender, non-distended. No masses or HSM. Extremities: Warm, well-perfused. No clubbing, cyanosis, or peripheral edema noted. No extremity lymphadenopathy noted. See Plastic surgery exam below Skin: Normal temperature, turgor, and texture. Blake 4. Skin is without rashes, or ecchymoses. Plastic Surgery Exam: The bilateral knees have anterior scars consistent with total knee arthroplasty. The left has a more complex scar with a lateral extension over the patella. Everything is well healed. ?? She has no visible muscle atrophy of the legs, however, she does have a fairly thick layer of subcutaneous fat, so this would not be easy to appreciate. ?? I performed a comprehensive peripheral nerve examination of the bilateral lower extremities, and I will list the pertinent findings: 1. Marked tenderness to palpation of the saphenous nerves in the thigh bilaterally 2. Marked tenderness of the common peroneal nerves at the fibular neck bilaterally, left greater than right 3. No/negative Tinel sign over the superficial peroneal nerve, deep peroneal nerve, or tarsal tunnel. 4. Normal sensation in the saphenous, superficial peroneal, deep peroneal, and tibial nerve distributions 5. 5/5 strength with plantar flexion at the ankle bilaterally. About 4/5 strength with ankle inversion, which seems to be limited due to pain with this maneuver, which would correspond to stretch on the common peroneal nerve 6. 4/5 ankle dorsiflexion bilaterally, and 4/5 ankle eversion bilaterally, which is also affected by pain with attempted resistance 7. No tenderness to palpation of the medial knee, as might be seen with neuromata of the infrapatellar branches of the saphenous nerve / i.e. no evidence of saphenous nerve neuroma at the knee ?? There are no dystrophic, vascular, coloration, or dystonic changes that might be suggestive of CRPS. ?? Lab/Radiology/Diagnostic Review: I personally reviewed the results of this patient's electrodiagnostic studies 12/24/2018. They are essentially normal apart from a mildly abnormal left tibial H reflex; there were no obvious findingson the EMG and nerve conduction study to suggest clear nerve injury or radiculopathy. However, it was noted that the findings could be compatible with a mild S1 radiculopathy ?? I also reviewed MRI of the lumbar spine without contrast??dated 01/16/19. ??There is mild straightening the lumbar lordosis. ??There is normal alignment of the lumbar spine with preserved disc spaces.??There is no evidence of acute fracture. ??At the L4-L5 level there is a mild left-sided foraminaldisc bulge with very minimal left-sided L4 neural foraminal stenosis.?At the L5-S1 level there is a mild left-sided disc bulge with very minimal left-sided L5 neural foraminal stenosis. ?? Assessment: 1. Complex bilateral knee and leg pain following extensive surgeries for total knee arthroplasty and subsequent revisions 2. 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 Mild leg length discrepancy 5. Possible L5-S1 radiculopathy 6. Anxiety and depression ? Recommendations: I had an extensive discussion with this patient where I told her what I thought was going on, and what I think we may be able to do about it. ?? First, I made it clear that I think her pain is multifactorial, and that I do not have 1 surgery that would immediately fix all the pain. For instance, on the left side, where her symptoms seem to align pretty clearly with neuropathic pain from the peroneal nerve, there is also question of radiculopathy from L5 and S1 that has been partially responsive to steroid injections. Therefore, even if a s urgery to relieve compression on the peroneal nerve were successful, she may still have pain following this. We talked about the double crush syndrome, and the expectation that we would need to address part of her pain at a time, systematically, and that I would not want her to expect to wake up from anyone surgery with complete relief of all of her pain. However, I do think there is a good case for peroneal neuropathy. She has very clear provocative signs with pressure on the common peroneal nerve at the knee, and her exam is quite focal; I can place deep pressure and manipulate tissues everywhere else on her leg without causing any pain. The only place that she reacts are exactly over the common peroneal nerve at the knee, and the exit of the saphenous nerve at the medial thigh. As well, while performing the physical exam, any maneuvers that caused stretching and inversion of the ankle, created a lot of pain at the lateral knee. I also am somewhat suspicious that given her 3-4 revision total knees on each side, she may have some leg lengthening from the hardware etc that could be stretching the peroneal nerve. She does say that she notes a mild leg length discrepancy; with the right shorter than the left, which would correspond to the symptomatology of radiating neuropathic pain of the lateral leg on the left as compared to the right. ?? We talked about the difference between the radiating neuropathic pain and the deep, squeezing type bilateral knee joint pain she has. I have told her that I think both could be related to peroneal nerve compression, although as the knee joint pain is more vague, I cannot with certainty say that peroneal nerve decompression would help with this. However, I have suggested that we begin by releasingthe common peroneal nerve on the left, where she has more clear signs of neuropathic radiating pain, and see how this affects the joint pain on the left, before we move on to the right side, where symptoms of radiated neuropathic pain are less (even though clinical exam signs are strongly present). ?? Regarding the saphenous nerve, this clearly gives a lot of innervation to the knee, and she has fairly extreme focal tenderness over the saphenous nerve in the medial thigh. It really is quite localized, and I can push anywhere else on her thigh and not cause her pain. I did not find any evidence of neuroma of the saphenous nerve near the prior surgical sites of the knee. Therefore, I think that decompression of the saphenous nerve would be helpful and is warranted at the same time, without anyexcisional procedure of the nerve. ?? So, putting an altogether, I am recommending that she have left-sided common peroneal nerve decompression and saphenous nerve decompression in the thigh. I would like to see how she responds to this before planning anything on the right. I made clear to her that I do not treat sciatica or radiculopathy, and that this may still be present after the surgery. * Joseph Bianchi III, MD - 12/03/2019 11:12 AM CDT I have reviewed the H&P, examined the patient, and endorse the findings as written. Plan of Care : Based on the above findings, I consider Marnie Roque to be an acceptable risk for : Procedure(s): DECOMPRESSION LEFT COMMON PERONEAL NERVE; DECOMPRESSION SAPHENOUS NERVE, LEFT (REQUEST 2HRS, GENERAL ANES) Source Note - Albert Lee MD - 12/03/2019 9:57 [...] is Outpatient. Informed Consent: Discussed plan with [employer] and attending. Anesthesia plan and risks discussed [...] All questions answered. documented in this encounter Miscellaneous Notes * Op Note - Joseph Bianchi III, MD - 12/03/2019 12:37 PM CDT Operative Report Patient:: Marnie Roque Date of : 1965 DATE OF SURGERY : 12/03/2019 PREOPERATIVE DIAGNOSIS: 1. Compression neuropathy of the left saphenous nerve 2. Compression neuropathy of the left common peroneal nerve POSTOPERATIVE DIAGNOSIS: 1. Compression neuropathy of the left saphenous nerve 2. Compression neuropathy of the left common peroneal nerve PROCEDURE: 1. Decompression of left common peroneal nerve 2. Decompression of left saphenous nerve in the thigh SURGEON: Joseph Bianchi III, MD ANESTHESIA: General INDICATION FOR PROCEDURE: This unfortunate 54 y.o. female is suffering from severe chronic pain after multiple knee replacements and revision total joint procedures. Our plan today is decompression of the above indicated nerves. OPERATIVE DETAILS After being seen by all team members and undergoing informed consent in the pre- operative area, thepatient was identified and marked on the left leg. When all team members were in agreement, she waswheeled to the operating room on a stretcher. SCDs were connected to bilateral lower extremities and a verbal timeout to confirm correct patient,identity, site, and procedure were performed before induction of anesthesia. When all team members were in agreement, the patient was transferred to the operating room table inthe supine position. she was appropriately padded at all pressure points for the anticipated duration of the case. After induction of anesthesia, a Land catheter was not placed. The left leg was prepped and draped in the standard sterile fashion. A well padded sterile tourniquet was applied to the left thigh. The limb was exsanguinated with an Esmarch bandage and the tourniquet elevated to a pressure of 250mmHg. Loupe magnification, tourniquet control, and bipolar cautery along with careful spreading dissection technique were used throughout the case We began with the common peroneal nerve. The incision was made overlying the fibular neck. Spreading dissection down to the superficial fascia was performed, and then the superficial fascia and deep fascia of the leg were incised. The peroneal nerve was identified. There was marked compression at the crural ligament at the entrance of the nerve into the lateral compartment. This ligament was divided superficial to and deep to the nerve, and then the lateral compartment muscles were retracted, and the deep fascia of the muscles was divided over the submuscular course of the nerve. The intervening septae between the lateral compartment muscles were then dissected free and divided. The nerve was traced proximally, and decompressed from all compressive fascia along its proximal course up towards the popliteal fossa. A trough was cut into the soleus muscle to allow the nerve to lie more deeply away from the skin. 10 cc of Marcaine with epinephrine was injected, and the skin was closed with3-0 and 4-0 Monocryl. Attention was then turned to the medial thigh. A longitudinal incision was made overlying the course of the femoral vessels. Dissection was carried down to the sartorius muscle. Cutaneous nerves wereidentified and preserved. The sartorius was reflected posteriorly, and the femoral sheath was opened longitudinally, decompression the femoral vessels up to their exit from Eric's canal. The saphenous nerve was then identified and dissected from from all it's attachments, and release from its fascial hiatus distally. The was a marked pseudoneuroma of the saphenous nerve where it exited the deepfascia. The nerve was loose and mobile following decompression. A 19 english carrington drain was placed,and the wound closed in layers with 0-Vicryl and 3-0 / 4-0 monocryl. Soft dressings and an BENTON wrapwere applied. After application of dressings, the patient was awoken from anesthesia without difficulty and transferred to the recovery room. At the end of the case all needle, sponge, and instrument counts were correct x 2. Estimated Blood Loss: No blood loss documented. Intraoperative Fluids: Per Anesthesia Blood/Blood Products Transfused: Per Anesthesia Drains: 19F Carrington thigh Specimens: No specimens collected during this procedure. IMPLANTS: Nothing was implanted during the procedure Complications: None Condition on Discharge from the operating room was stable Post-operative Plan: Stable, to PACU. Attestation of Presence: I, Joseph Bianchi, was present and scrubbed for the entirety of the procedure. Joseph Bianchi MD Date: 12/03/2019 Time: 3:12 PM * Pre-Procedure Instructions - Charity Perkins RN - 11/30/2019 4:08 PM CDT We are pleased that you and your doctor have chosen [facility] for your surgery. We hope that the following information will help make your visit a pleasant one. Surgery Date: 12/03/2019 Before your surgery: ?? Notify your doctor of ANY change in your health such as a cold, sore throat, fever, any infection or a change in the problem for which you are having your surgery. ?? Follow any instructions given to you by your doctor or surgeon. Check with your doctor if you need to STOP taking: ?? Aspirin (ordered by your doctor) ?? Plavix ?? Coumadin One week before surgery STOP taking: ?? All herbal supplements ?? Aspirin (not ordered by your doctor) ?? Aleve, Advil, Motrin, Ibuprofen, or other similar medications (Tylenol is okay). 24 hours before your surgery: ?? No smoking or alcoholic drinks. ?? Stop taking your: Metformin/Glucophage. ?? Night before your surgery: ?? Do not eat or drink anything after midnight. ?? Take only half of your normal PM Insulin dose. ?? Follow surgeon's instructions for anti-bacterial shower night before and morning of surgery. Day of surgery: ?? Do not swallow any water when you brush your teeth. ?? Do not take your AM insulin dose or any diabetic medicines ?? ONLY take these pills with a tiny sip of water. ?? Use no make-up, nail occitan, lotions, oils or powders on your skin. ?? Wear comfortable clothes that will not be tight in the area of your surgery. ?? Leave all valuables and jewelry (including all body piercing jewelry) at home. ?? If you use a CPAP machine, please bring it with you to wear after your surgery. ?? Please bring your a photo ID and insurance cards with you. ?? Check in at the Registration Desk. ?? If you are 17 years old or younger, a parent or guardian must come with you. After your Outpatient Surgery: ?? You must have a responsible adult to drive you home, you will not be allowed to drive or take a cab home. ?? We recommend you have someone stay with you for 24 hours after your surgery. What to bring if you are spending the night with us: ?? Bring toiletry items such as: robe, slippers, toothbrush, toothpaste, brush or comb. ?? Bring contact lens, hearing aids, glass cases and denture container if you use any of these items. ?? The hospital will provide you with a gown. Questions or concerns: ?? If you have any questions or concerns regarding your procedure, contact your surgeon as soon as possible. ?? If you have questions regarding your Pre-Admission Testing, please call us. We can be reached atthe number posted at the top of the page. 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, left documented in this encounter Admitting Diagnoses Diagnosis Saphenous nerve neuropathy, 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 documented in this encounter Administered Medications Inactive Administered Medications - up to 3 most recent administrations Medication Order MAR Action Action Date Dose Rate Site acetaminophen (TYLENOL) tablet 975 mg 975 mg (rounded from 1,000 mg), oral, Once, On Nadya 12/03/19 at 1015, For 1 dose, Pre-Op, Indications: Pre-Emptive AnalgesiaIndications:Pre-Empt patricia Analgesia Given 12/03/2019 9:50 AM CDT 975 mg bupivacaine-EPINEPHrine (MARCAINE with EPI) 0.5 %-1:200,000 preservative free injection As needed, Starting on Nadya 12/03/19 at 1422, Intra-Op Given 12/03/2019 2:22 PM CDT 50 mL Surgical Site celecoxib (CeleBREX) capsule 200 mg 200 mg, oral, Once, On Nadya 12/03/19 at 1015, For 1 dose, Pre-Op, Hold if history of kidney disease or gastric ulcer., Indications: Pre-Emptive AnalgesiaIndications:Pre-Empt patricia Analgesia Given 12/03/2019 9:51 AM CDT 200 mg dexAMETHasone (DECADRON) injection solution 10 mg 10 mg, intravenous, Administer over 2 Minutes, Once, On Nadya 12/03/19 at 1015, For 1 dose, Pre-Op Given 12/03/2019 11:40 AM CDT 10 mg gabapentin (NEURONTIN) capsule 300 mg 300 mg, oral, Once, On Nadya 12/03/19 at 1015, For 1 dose, Pre-Op, Indications: Pre-Emptive AnalgesiaIndications:Pre-Empt patricia Analgesia Given 12/03/2019 9:51 AM CDT 300 mg HYDROmorphone (DILAUDID) injection 0.2 mg 0.2 mg, intravenous, Administer over 2 Minutes, Every 10 min PRN, 1st line for pain, Starting on Nadya 12/03/19 at 1507, Phase I, Notify Anesthesiologist if total PACU dose reaches 2 mg and pain score 5/10 or more., Indications: PainIndications:Pain Given 12/03/2019 3:56 PM CDT 0.2 mg Given 12/03/2019 3:46 PM CDT 0.2 mg Lactated Ringer's (LR) infusion 30 mL/hr, intravenous, Continuous, Starting on Nadya 12/03/19 at 1015, Pre-Op New Bag 12/03/2019 2:30 PM CDT New Bag 12/03/2019 12:08 PM CDT Rate/Dose Verify 12/03/2019 11:49 AM CDT oxyCODONE-acetaminophen (PERCOCET) 5-325 mg per tablet 1 tablet 1 tablet, oral, Once, On Nadya 12/03/19 at 1715, For 1 dose, Pre-Op, Indications: PainIndications:Pain Given 12/03/2019 4:46 PM CDT 1 tablet sodium chloride 0.9 % irrigation As needed, Starting on Nadya 12/03/19 at 1310, Intra-Op Given 12/03/2019 1:10 PM CDT 500 mL Surgical Site documented in this encounter Discontinued Medications Medication Sig Discontinue Reason Start Date End Da te DULoxetine DR (CYMBALTA) 60 mg capsule Take by mouth daily Therapy completed 10/30/2018 11/30/2019 gabapentin (NEURONTIN) 300 mg capsuleIndications: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 Therapy completed 06/20/2018 11/30/2019 oxyCODONE-acetaminophen (PERCOCET) 5-325 mg per tabletIndications:Pain Take 1-2 tablets by mouth every 4 (four) hours as needed for pain. Therapy completed 07/16/2018 11/30/2019 meloxicam (MOBIC) 15 mg tabletIndications:After care following right knee joint replacement surgery TAKE 1 TABLET BY MOUTH EVERY DAY Therapy completed 09/29/2018 11/30/2019 lidocaine (XYLOCAINE) 5 % ointment Therapy completed 02/11/2019 11/30/2019 hydrOXYzine (VISTARIL) 25 mg capsuleIndications:anxi ety Take 1 capsule (25 mg total) by mouth 3 (three) times a day as needed for anxiety. Therapy completed 06/20/2018 11/30/2019 salicylic acid 3 % shampoo Apply topically. Therapy completed 11/30/2019 senna-docusate (PERICOLACE) 8.6-50 mgIndications:constipat ion Take 2 tablets by mouth 2 (two) times a day. May increase to 4 tablets twice daily if needed. HOLD medication for diarrhea. Therapy completed 06/20/2018 11/30/2019 documented as of this encounter Active and Recently Administered Medications Times are shown in CDT. Scheduled Medication Order 12/01/2019 12/02/2019 12/03/2019 acetaminophen (TYLENOL) tablet 975 mg (COMPLETED) 975 mg (rounded from 1,000 mg), oral, Once, On Nadya 12/03/19 at 1015, For 1 dose, Pre-Op, Indications: Pre-Emptive Analgesia 0950 (Given - Provid er: Janiya Gregorio RN) ceFAZolin (ANCEF) 1 gram/10 mL in sterile water (premix) 2,000 mg (COMPLETED) 2,000 mg, intravenous, at 400 mL/hr, Administer over 3 Minutes, Once, On Nadya 12/03/19 at 1015, For 1 dose, Pre-Op, Administer within 60 minutes of incision., Indications: Prophylaxis, Surgical 1208 (Given - Provid er: Pedro Richards CRNA) celecoxib (CeleBREX) capsule 200 mg (COMPLETED) 200 mg, oral, Once, On Nadya 12/03/19 at 1015, For 1 dose, Pre-Op, Hold if history of kidney disease or gastric ulcer., Indications: Pre-Emptive Analgesia 0951 (Given - Provid er: Janiya Gregorio RN) dexAMETHasone (DECADRON) injection solution 10 mg (COMPLETED) 10 mg, intravenous, Administer over 2 Minutes, Once, On Nadya 12/03/19 at 1015, For 1 dose, Pre-Op 1140 (Given - Provid er: Janiya Gregorio RN) gabapentin (NEURONTIN) capsule 300 mg (COMPLETED) 300 mg, oral, Once, On Nadya 12/03/19 at 1015, For 1 dose, Pre-Op, Indications: Pre-Emptive Analgesia 0951 (Given - Provid er: Janiya Gregorio RN) oxyCODONE-acetaminophen (PERCOCET) 5-325 mg per tablet 1 tablet (COMPLETED) 1 tablet, oral, Once, On Nadya 12/03/19 at 1715, For 1 dose, Pre-Op, Indications: Pain 1646 (Given - Provid er: Alicia Stanton RN) Continuous Medication Order 12/01/2019 12/02/2019 12/03/2019 Lactated Ringer's (LR) infusion 30 mL/hr, intravenous, Continuous, Starting on Nadya 12/03/19 at 1015, Pre-Op 1001 (New Bag - Prov ider: Janiya Gregorio RN)1149 (Rate/Dose Verify - Provider: Pedro Richards CRNA)1208 (New Bag - Provider: Pedro Richards CRNA)1430 (New Bag - Provider: Pedro Richards CRNA)1506 (Anesthesia Volume Adjustment - Provider: Pedro Richards CRNA) PRN Medication Order 12/01/2019 12/02/2019 12/03/2019 bupivacaine-EPINEPHrine (MARCAINE with EPI) 0.5 %-1:200,000 preservative free injection (CANCELED) As needed, Starting on Nadya 12/03/19 at 1422, Intra-Op 1422 (Given - Provid er: Joseph Bianchi III, MD) HYDROmorphone (DILAUDID) injection 0.2 mg (CANCELED) 0.2 mg, intravenous, Administer over 2 Minutes, Every 10 min PRN, 1st line for pain, Starting on Nadya 12/03/19 at 1507, Phase I, Notify Anesthesiologist if total PACU dose reaches 2 mg and pain score 5/10 or more., Indications: Pain 1546 (Given - Provid er: Alicia Stanton RN)1556 (Given - Provider: Alicia Yessica Romy, RN) sodium chloride 0.9 % irrigation (CANCELED) As needed, Starting on Nadya 12/03/19 at 1310, Intra-Op 1310 (Given - Provid er: Joseph Bianchi III, MD) documented in this encounter Orders Medications Ordered That Barak ht Not Have Been Administered Count Last Ordered Date First Ordered Date ceFAZolin (ANCEF) 1 gram/10 mL in sterile water (premix) 2,000 mg 1 12/03/2019 naloxone (NARCAN) 0.4 mg/mL injection 0.04-0.4 mg 1 12/03/2019 ondansetron (ZOFRAN) injection 4 mg 1 12/02 sodium chloride 0.9% flush 0.5-20 mL 2 01/2020 documented in this encounter Care Teams Poultry Tender Relationship Specialty Start Date End Date René Smallwood MD PCP - General Family Medicine 12/02/17 02/10/20 documented as of this encounter
--- OUTSIDE RECORDS SUMMARY | 2024-05-11 17:34 | XMS_ITS | Encounter Summary ---
Author Organization [facility] Healthcare Address [address] [place] [address] Care Team Providers Care Head Of Human Resources Name Role Phone René Smallwood MD Primary Care Provider [phone] René Smallwood MD Unavailable [phone] Reason for Referral * Diagnostic Imaging (Routine) - Closed Specialty Diagnoses / Procedures Referred By Liz falcon Referred To Contact Radiology Diagnoses Pain Procedures FL Fluoro Guidance for Spine Needle Placement Olegario Adair MD Phone: tel: fax: [address] [address] Referral ID Status Reason Start Date Expiration Date Visits Re quested Visits Authorized [id number] Closed 05/31/2021 06/30/2022 1 1 [facility] Reason for Visit * Diagnostic Imaging (Routine) - Closed Specialty Diagnoses / Procedures Referred By Liz falcon Referred To Contact Radiology Diagnoses Pain Procedures FL Fluoro Guidance for Spine Needle Placement Olegario Adair MD Phone: tel: fax: [address] [address] Referral ID Status Reason Start Date Expiration Date Visits Re quested Visits Authorized [id number] Closed 05/31/2021 06/30/2022 1 1 Encounter Details Date Type Department Care Team (Latest Contact Info) Description 05/31/2021 10:18 AM SKETCHER - 05/31/2021 11:59 PM SKETCHER Hospital Encounter [facility] [address] [place] [address] Pain Discharge Disposition: Discharge to home or self [...] on file Legal Sex Female 11:20 AM SKETCHER Gender Identity Not on file Sexual Orientation [...] Procedure Name Priority Date/Time Associated Diagnosis Comments IR DISC ASPIRATION Schedule Routine, Read Routine (OP Routine) 05/31/2021 10:53 AM SKETCHER Pain documented in this encounter Results * FL Fluoro Guidance for Spine Needle Placement (05/31/2021 10:53 AM SKETCHER) Narrative RAD_PACS[facility] - 05/31/2021 10:54 AM SKETCHER The images from this study are not interpreted by Radiology. ??Please refer to the physician's procedure / OR operative note. us Olegario Adair MD IMG IR PROCEDURES Fin al Result RAD_PACS[facility] documented in this encounter Visit Diagnoses Diagnosis Pain Generalized pain documented in this encounter Care Teams Head Of Human Resources Relationship Specialty Start Date End Date René Smallwood MD PCP - General Family Medicine 02/11/20 René Smallwood MD Family Medicine 02/11/20 documented as of this encounter
--- OUTSIDE RECORDS SUMMARY | 2024-05-11 17:34 | XMS_ITS | Encounter Summary ---
Author Organization [facility] Healthcare Address [address] [place] [address] Care Team Providers Care Office Automation Technician Name Role Phone René Smallwood MD Primary Care Provider [phone] René Smallwood MD Unavailable [phone] Reason for Visit * Reason Comments Follow-up Leg Pain Encounter Details Date Type Department Care Team (Late st Contact Info) Description 02/09/2021 2:15 PM CDT - 02/09/2021 11:59 PM CDT Hospital Encounter [facility] [address] [place] [address] [place] [address] [facility] [address] [place] [address] [place] [address] [facility] [address] [place] [address] Complex regional pain syndrome type 1 of both lower extremities (Primary Dx); Chronic postoperative pain; Chronic pain of both knees Discharge Disposition: [...] on file 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 Gender Identity Not on file Sexual Orientation Not on file Occupation Industry Job Start Date Job End Date unemployed/disability Not on file Not on file Not on file documented as of this encounter Last Filed Vital Signs Vital Sign Reading Time Taken Comments Blood Pressure 132/90 02/09/2021 2:35 PM CDT Pulse 83 02/09/2021 2:35 PM CDT Temperature - - Respiratory Rate 18 02/09/2021 2:35 PM CDT Oxygen Saturation 100% 02/09/2021 2:35 PM CDT Inhaled Oxygen Concentration - - [...] after taking ibuprofen) 10 tablet 12/03/2019 05/10/2021 oxyCODONE-acetam inophen (PERCOCET) 5-325 mg per tabletIndication s:Pain Take 1 tablet by mouth every 4 (four) hours as needed for pain 28 tablet 04/08/2020 05/10/2021 oxyCODONE-acetam inophen (PERCOCET) 5-325 mg per tabletIndication s:Pain Take 1 tablet by mouth daily as needed for pain 30 tablet 02/09/2021 05/10/2021 oxyCODONE-acetam inophen (PERCOCET) 5-325 mg per tabletIndication s:Pain Take 1 tablet by mouth daily as needed for pain 30 tablet 03/27/2021 05/10/2021 rizatriptan (MAXALT) 10 mg tablet 02/17/2020 [...] this encounter Progress Notes * Vishal Garza, SMALLTALK DEVELOPER - 02/09/2021 2:15 PM CDT Patient Name: Marnie Roque : 1965 Today's Date: 02/09/2021 PCP: René Smallwood MD Referring: No ref. provider found Chief Complaint Patient presents with ??? Follow-up ??? Leg Pain HPI Patient returning after DRG stim trial. She continues to suffer from bilateral knee pain which is moderate to severe. She does report some benefit with DRG stim trial but not beneficial enough to where she has real confident pursuing permanent implant at the present. However she does remain somewhat undecided. She inquires about other options as well. No Known Allergies Past Medical History: Diagnosis [...] 05/27/1994 Quit date: 12/11/2017 Years since quittin.1 ??? Smokeless tobacco: Never Used Substance and Sexual Activity ??? Alcohol use: Yes Comment: social ??? Drug use: No ??? Sexual activity: Defer Other Topics Concern ??? Not on file Social History Narrative ??? Not on file Social Determinants of Health Financial Resource Strain: ??? Difficulty of Paying Living Expenses: Not on file Food Insecurity: ??? Worried About Running Out of Food in the Last Year: Not on file ??? Ran Out of Food in the Last Year: Not on file Transportation Needs: ??? Lack of Transportation (Medical): Not on file ??? Lack of Transportation (Non-Medical): Not on file Physical Activity: ??? Days of Exercise per Week: Not on file ??? Minutes of Exercise per Session: Not on file Stress: ??? Feeling of Stress : Not on file Social Connections: ??? Frequency of Communication with Friends and Family: Not on file ??? Frequency of Social Gatherings with Friends and Family: Not on file ??? Attends Orthodoxy Services: Not on file ??? Active Member of Clubs or Organizations: Not on file ??? Attends Club or Organization Meetings: Not on file ??? Marital Status: Not on file Intimate Partner Violence: ??? Fear of Current or Ex-Partner: Not on file ??? Emotionally Abused: Not on file ??? Physically Abused: Not on file ??? Sexually Abused: Not on file Family History Problem Relation [...] Hematological: Negative. Psychiatric/Behavioral: Negative. Physical Exam Vitals: 02/09/21 1435 BP: 132/90 BP Location: Right arm Patient Position: Sitting Pulse: 83 Resp: 18 SpO2: 100% There is no [...] Injuries Chronic pain of both knees Neuro Complex regional pain syndrome type 1 of both lower extremities - Primary Chronic postoperative pain Plan Pre-hypertension/Hypertension: The patient has been informed [...] weight loss and exercise for management. We discuss other options for this patient including geniculate nerve block and possible ablation as1 option. Other alternative would be Q stim trial as an option for the patient. She will consider both of these options and let us know. We also will provide her with a prescription for pain medication, oxycodone to be taken once daily p.r.n. for moderate to severe pain. We will provided with a prescription which we agree with last for 45 days and additional prescription to be filled in mid February lasting for another 45 days. We will follow up in 3 months or sooner if necessary to discuss options. Goals of Treatment: Treat underlying pathology, improve [...] using M*Modal dictation. There may be some sample sewer variances which are not appreciated or corrected in this note. documented in this encounter Plan of Treatment Not on file documented as of this encounter Visit Diagnoses Diagnosis Complex regional pain syndrome type 1 of both lower extremities- Primary Chronic postoperative pain Other chronic postoperative pain Chronic pain of both knees documented in this encounter Care Teams Office Automation Technician Relationship Specialty Start Date End Date René Smallwood MD PCP - General Family Medicine 02/11/20 René Smallwood MD Family Medicine 02/11/20 documented as of this encounter
--- OUTSIDE RECORDS SUMMARY | 2024-05-11 17:34 | XMS_ITS | Encounter Summary ---
Author Organization [facility] Healthcare Address [address] [place] [address] Care Team Providers Care Dot Compliance Coordinator Name Role Phone René Smallwood MD Primary Care Provider [phone] René Smallwood MD Unavailable [phone] Reason for Referral * Diagnostic Imaging (Routine) - Closed Specialty Diagnoses / Procedures Referred By Contac t Referred To Contact Diagnoses Low back pain, non-specific Procedures XR Spine Lumbar Ap Lat Flex Ext min 4 Views Suzan Sanches NP [address] [place] [address] Phone: tel: fax: [place] [address] [place] [address] Referral ID Status Reason Start Date Expiration Date Visits Re quested Visits Authorized [id number] Closed 02/19/2020 03/20/2021 1 1 Reason for Visit * Diagnostic Imaging (Routine) - Closed Specialty Diagnoses / Procedures Referred By Contac t Referred To Contact Diagnoses Low back pain, non-specific Procedures XR Spine Lumbar Ap Lat Flex Ext min 4 Views Suzan Sanches NP [address] [place] [address] Phone: tel: fax: [place] [address] [place] [phone] Referral ID Status Reason Start Date Expiration Date Visits Re quested Visits Authorized [id number] Closed 02/19/2020 03/20/2021 1 1 Encounter Details Date Type Department Care Team (Latest Contact Info) Description 02/22/2020 1:01 PM CDT - 02/22/2020 3:52 PM CDT Hospital Encounter [id number] [address] [facility] [address] [place] [phone] Greg Mancera MD [facility]PITAL DR DEPT NEUROSURGERY, [address] [address] Suzan Sanches, RANGEL [address] [place], [place] [id number] Low back pain, non-specific Discharge Disposition: Discharge to home or self [...] on file Legal 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 Suzan Sanches WEATHERIZATION CREW LEADER IMG XR PROCEDURES Final Re sult documented in this encounter Visit Diagnoses Diagnosis Low back pain, non-specific documented in this encounter Care Teams Dot Compliance Coordinator Relationship Specialty Start Date End Date René Smallwood MD PCP - General Family Medicine 02/11/20 René Smallwood MD Family Medicine 02/11/20 documented as of this encounter
--- OUTSIDE RECORDS SUMMARY | 2024-05-11 17:34 | XMS_ITS | Encounter Summary ---
Author Organization [facility] Healthcare Address [address] [place] [address] Care Team Providers Care Drafter Topographical Name Role Phone René Smallwood MD Primary Care Provider [phone] René Smallwood MD Unavailable [phone] Encounter Details Date Type Department Care Team (Late st Contact Info) Description 05/31/2021 10:13 AM LINUX NETWORK SYSTEMS ADMINISTRATOR - 05/31/2021 10:17 AM LINUX NETWORK SYSTEMS ADMINISTRATOR Hospital Encounter [facility] [address] [place] [address] [place] [address] [facility] [address] [place] [address] Primary osteoarthritis of both knees; Chronic pain of both knees Discharge Disposition: [...] on file Legal Sex Female 11:20 AM LINUX NETWORK SYSTEMS ADMINISTRATOR Gender Identity Not on file Sexual Orientation Not on file Occupation Industry Job Start Date Job End Date unemployed/disability Not on file Not on file Not on file documented as of this encounter Last Filed Vital Signs Vital Sign Reading Time Taken Comments Blood Pressure 130/58 05/31/2021 10:53 AM LINUX NETWORK SYSTEMS ADMINISTRATOR Pulse 84 05/31/2021 10:53 AM LINUX NETWORK SYSTEMS ADMINISTRATOR Temperature - - Respiratory Rate 16 05/31/2021 10:53 AM LINUX NETWORK SYSTEMS ADMINISTRATOR Oxygen Saturation 95% 05/31/2021 10:53 AM LINUX NETWORK SYSTEMS ADMINISTRATOR Inhaled Oxygen Concentration - - Weight - - Height - - Body Mass Index - - documented in this encounter Discharge Instructions * Discharge Instructions* Haley Smith RN - 05/31/2021 11:35 AM LINUX NETWORK SYSTEMS ADMINISTRATOR You may notice a slight increase in pain after the procedure. This should start to improve within the next 24-48 hours. It may take as long as 72 hours before you notice a gradual improvement in your pain/symptoms. If you are taking pain medications you may continue to take them. If you are going to physical therapy continue to do so. If you experience pain at the injection site, you may apply ice to the affected area for area for 20 minutes every 2 hours. No heat to the injection site for 24 hours. No tub bath or soaking in water(pools/jacuzzi, etc.) for 24 hours. If you develop ANY other symptoms, such as severe pain, or have signs of infection (temperature of 100.4 or greater, drainage at the injection site) Call the Pain Management Center immediately at [phone]. After hours, contact the [facility] Territory Account Manager at [phone] and she will reach your physician for you. In case of emergency call 911 X NETWORK SYSTEMS ADMINISTRATOR documented in this encounter Medications at Time [...] documented in this encounter H&P Notes * Olegario Adair MD - 05/31/2021 10:15 AM CST Patient Name: Marnie Roque : 1965 Today's Date: 05/31/2021 PCP: Reén Smallwood MD Referring: No ref. provider found No diagnosis found. No Known Allergies Past Medical History: Diagnosis [...] MEDICATIONS : ALPRAZolam (XANAX) 0.25 mg tablet diazePAM (VALIUM) 5 mg tablet levothyroxine sodium (TIROSINT) 112 mcg capsule oxyCODONE-acetaminophen (PERCOCET) 5-325 mg per tablet rizatriptan (MAXALT) 10 mg tablet topiramate (TOPAMAX) 25 mg tablet topiramate (TOPAMAX) 50 mg tablet Plan: Left Genicular Nerve Block X NETWORK SYSTEMS ADMINISTRATOR documented in this encounter Miscellaneous Notes * Op Note - Olegario Adair MD - 05/31/2021 10:15 AM CST Procedure performed: LEft superomedial, superolateral, and inferomedial genicular nerve radiofrequency ablation. Indication for procedure: Chronic right knee pain/arthritis Informed Consent: Risks, benefits, complications, and alternatives to proceeding with the procedurewere discussed in detail with the patient. Questions were solicited and answered, and the patient endorsed explicit understanding and consent to proceed. The patient was informed risks included but are not limited to: serious infection, bleeding/bruising, allergic reaction, nerve or organ injury, paralysis, increased pain, worsening mobility, lack of pain relief, stroke, and . Description of procedure: After the above, the patient was brought to the procedure room and allowed to place themself on the operating room table. Time- out performed. The patient's left knee was prepped and draped in usual sterile fashion. Fluoroscopy was utilized to identify the anticipated locations of the left superomedial, superolateral, and inferomedial genicular nerves. The overlying skin and subcutaneous tissue was anesthetized with 1% lidocaine. Next, 25g 2 spinal needles were advanced with fluoroscopic guidance to the anticipated locations of the aforementioned nerves. Once in goodposition, 2 mL of preservative-free 1% lidocaine was injected at each location. The patient tolerated the procedure well and there were no apparent complications. Note that 10 minutes following the procedure the patient noted more than 80% improved with increased functional movement of the knee. She would like to proceed with left knee radiofrequency ablation. X NETWORK SYSTEMS ADMINISTRATOR documented in this encounter Plan of Treatment Not on file documented as of this encounter Visit Diagnoses Diagnosis Primary osteoarthritis of both knees Chronic pain of both knees documented in this encounter Administered Medications Inactive Administered Medications - up to 3 most recent administrations Medication Order MAR Action Action Date Dose Rate Site lidocaine PF (XYLOCAINE) 10 mg/mL (1 %) preservative free injection As needed, Starting on Sat05/31/21 at 1044, Intra-Op Given 05/31/2021 10:46 AM LINUX NETWORK SYSTEMS ADMINISTRATOR 8 mL Given 05/31/2021 10:44 AM LINUX NETWORK SYSTEMS ADMINISTRATOR 3 mL documented in this encounter Care Teams Drafter Topographical Relationship Specialty Start Date End Date René Smallwood MD PCP - General Family Medicine 02/11/20 René Smallwood MD Family Medicine 02/11/20 documented as of this encounter
--- OUTSIDE RECORDS SUMMARY | 2024-05-11 17:34 | XMS_ITS | Encounter Summary ---
Author Organization [facility] Address [address] [place] [address] Phone Care Team Providers Care Sap Solutions Architect Name Role Phone René Smallwood MD Primary Care Provider [phone] Reason for Visit * Reason Comments Post-op * Consultation (Routine) - Closed Specialty Diagnoses / Procedures Referred By Liz falcon Referred To Contact Plastic Surgery Diagnoses Bilateral leg pain René Smallwood MD Phone: tel: fax: Joseph Bianchi III, MD [address] [facility] [phone] [place] [address] Phone: tel: fax: Referral ID Status Reason Start Date Expiration Date V isits Requested Visits Authorized [id number] Closed Specialty Services Required 03/03/2020 03/03/2021 12 12 Encounter Details Date Type Department Care Team (Latest Contact Info) Description 01/08/2020 11:00 AM CDT Office Visit [facility] Surgery [address] [place] [address] [address] [place] [id number] Joseph Bianchi III, MD [address] [facility] [phone] [place], [place] [id number] Chronic postoperative pain (Primary Dx) Social History Tobacco Use Types Packs/Day Years Used Date Smoking Tobacco: Former Cigarettes 0.5 25 0 05/27/1992 - 05/27/2017 Smokeless Tobacco: Never Alcohol Use Standard Drinks/Week Comments Yes 0 (1 standard drink = 0.6 oz pur e alcohol) social Comments No Sex and Gender Information Value Date Recorded Sex Assigned at Not on file Legal Sex Female 11:20 AM DEATH SURVEYS CODER Gender Identity Not on file Sexual Orientation Not on file Occupation Industry Job Start Date Job End Date unemployed Not on file Not on file Not on file documented as of this encounter Progress Notes * Joseph Bianchi III, MD - 01/08/2020 11:00 AM CDT I was pleased to see Marnie Roque today, now 5 weeks s/p decompression of left saphenous nerveand common peroneal nerve. She reports that, for the 1st few weeks after surgery, she had very goodrelief of pain. Now she has complete significant pain especially in the distal medial thigh, just distal to the incision where the old drain site was. She describes it is numbness, burning, and tingling, and an inch that she cannot scratch. She says that when she sleeps at night, she can not have anything touching that area. On examination, she has well-healed surgical scars. There is a very small amount of inflammation around the old drain site. There is fullness at the distal medial knee, and she is concerned about a fluid collection. Given the substantial layer of subcutaneous tissue in that area and this patient, it is difficult for me to exclude seroma by palpation, although it does not seem likely to me, as thearea appears to have the same amount of fullness as her contralateral medial knee. I did tell her that if it would make her feel better, I would attempt an aspiration of that area, and she wanted to do this. I did anesthetize the area with 5 cc of lidocaine and prepped with chlorhexidine. Then, a long 18 gauge needle and 10 cc syringe were used to attempt to aspirate the area, and no fluid was encountered. A Band-Aid was applied. We talked about what to do. I reminded her of what I told her preoperatively, which is that I do not reinforcer results for peripheral nerve decompression for at least 3 months due to postoperative swelling and pain, which are expected. I reminded her that she has many sources of overlapping pain in this leg, including 7 prior surgeries, and radiating pain from her lower spine. She reports being very anxious and severely depressed, and I reminded her that these things can exacerbate pain. Also, postoperative pain on top of chronicpain will exacerbate pain temporarily, and this is normal. The sensation changes around the scar are also normal, and do not represent any injury to major nerves, but simply minor cutaneous nerves that any incision will cause. I have told her again that I will look forward to seeing her at 3 months and evaluating her more intermediate term result at that point. I have encouraged her in the meantime to seek care for her anxiety and depression, which clearly are quite severe and are limiting her ability to enjoy life at this point. documented in this encounter Plan of Treatment Not on file documented as of this encounter Visit Diagnoses Diagnosis Chronic postoperative pain- Primary Other chronic postoperative pain documented in this encounter Discontinued Medications Medication Sig Discontinue Reason Start Date End Da te oxyCODONE-acetaminophen (PERCOCET) 5-325 mg per tabletIndications:Pain Take 1 tablet by mouth every 6 (six) hours as needed for pain 11/23/2019 01/08/2020 documented as of this encounter Care Teams Sap Solutions Architect Relationship Specialty Start Date End Date René Smallwood MD PCP - General Family Medicine 12/02/17 02/10/20 documented as of this encounter
--- OUTSIDE RECORDS SUMMARY | 2024-05-11 17:34 | XMS_ITS | Encounter Summary ---
Author Organization [facility] Address [address] [place] [address] Phone Care Team Providers Care Hoisting Engineer Pile Driving Name Role Phone René Smallwood MD Primary Care Provider [phone] René Smallwood MD Unavailable [phone] Encounter Details Date Type Department Care Team (Late st Contact Info) Description 02/19/2020 Orders Only [facility] Neurosurgery [address] [facility] Medical Office Building [address] [place] [address] Ginette Golden Social History Tobacco Use Types Packs/Day Years Used Date Smoking Tobacco: Former Cigarettes 0.5 25 0 05/27/1992 - 05/27/2017 Smokeless Tobacco: Never Alcohol Use Standard Drinks/Week Comments Yes 0 (1 standard drink = 0.6 oz pur e alcohol) social Comments No Sex and Gender Information Value Date Recorded Sex Assigned at Not on file Legal Sex Female 11:20 AM YARD JOCKEY Gender Identity Not on file Sexual Orientation Not on file Occupation Industry Job Start Date Job End Date unemployed Not on file Not on file Not on file documented as of this encounter Plan of Treatment Not on file documented as of this encounter Visit Diagnoses Not on filedocumented in this encounter Historical Medications * This list may reflect changes made after this encounter. rizatriptan (MAXALT) 10 mg tablet 02/17/2020 07/12/2021 topiramate (TOPAMAX) 50 mg tablet Take 100 mg by mouth 2 (two) times a day 01/26/2020 04/09/2023 added in this encounter Care Teams Hoisting Engineer Pile Driving Relationship Specialty Start Date End Date René Smallwood MD PCP - General Family Medicine 02/11/20 René Smallwood MD Family Medicine 02/11/20 documented as of this encounter
--- OUTSIDE RECORDS SUMMARY | 2024-05-11 17:34 | XMS_ITS | Encounter Summary ---
Author Organization [facility] Healthcare Address [address] [place] [address] Care Team Providers Care User Interface Engineer Name Role Phone René Smallwood MD Primary Care Provider [phone] René Smallwood MD Unavailable [phone] Encounter Details Date Type Department Care Team (Late st Contact Info) Description 07/20/2020 Telephone [facility] Pain Management Center [address] [place] [address] [place] [address] [facility] [address] [place] [address] Social History Tobacco Use Types Packs/Day Years Used Date Smoking Tobacco: Former Cigarettes 0.3 23.5 0 05/27/1994 - 12/11/2017 Smokeless Tobacco: Never Alcohol Use Standard Drinks/Week Comments Yes 0 (1 standard drink = 0.6 oz pur e alcohol) social Comments No Sex and Gender Information Value Date Recorded Sex Assigned at Not on file Legal Sex Female 11:20 AM MAKEUP EDITOR Gender Identity Not on file Sexual Orientation Not on file Occupation Industry Job Start Date Job End Date unemployed/disability Not on file Not on file Not on file documented as of this encounter Miscellaneous Notes * Telephone Encounter - Danna Brunson - 07/20/2020 11:36 AM CST PATIENT CALLED AND CANCELED DRG TRIAL/FOLLOW UP... PERSONAL JUST FYI UP EDITOR documented in this encounter Plan of Treatment Not on file documented as of this encounter Visit Diagnoses Not on filedocumented in this encounter Care Teams User Interface Engineer Relationship Specialty Start Date End Date René Smallwood MD PCP - General Family Medicine 02/11/20 René Smallwood MD Family Medicine 02/11/20 documented as of this encounter
--- OUTSIDE RECORDS SUMMARY | 2024-05-11 17:34 | XMS_ITS | Encounter Summary ---
Author Organization [facility] Healthcare Address [address] [place] [address] Care Team Providers Care Detail Technician Name Role Phone René Smallwood MD Primary Care Provider [phone] René Smallwood MD Unavailable [phone] Reason for Visit * Reason Comments Follow-up Knee Pain Leg Pain Encounter Details Date Type Department Care Team (Late st Contact Info) Description 12/15/2020 11:51 AM CDT - 12/15/2020 11:59 PM CDT Hospital Encounter [facility] [address] [place] [address] [place] [address] [facility] [address] [place] [address] [place] [address] [facility] [address] [place] [address] Failure of total knee replacement, sequela (Primary Dx); Complex regional pain syndrome type 1 of both lower extremities; Peroneal neuropathy at knee, left; Chronic postoperative pain; Chronic pain of both [...] on file Legal Sex Female 11:20 AM PRECISE WINDER Gender Identity Not on file Sexual Orientation Not on file Occupation Industry Job Start Date Job End Date unemployed/disability Not on file Not on file Not on file documented as of this encounter Last Filed Vital Signs Vital Sign Reading Time Taken Comments Blood Pressure 127/72 12/15/2020 12:03 PM CDT Pulse 80 12/15/2020 12:03 PM CDT Temperature - - Respiratory Rate 20 12/15/2020 12:03 PM CDT Oxygen Saturation 99% 12/15/2020 12:03 PM CDT Inhaled Oxygen Concentration - - [...] s:Pain Take 1 tablet by mouth every 8 (eight) hours as needed for pain 30 tablet 12/15/2020 02/09/2021 rizatriptan (MAXALT) 10 mg tablet 02/17/2020 07/12/2021 [...] this encounter Progress Notes * Vishal Garza, SENIOR SALES OPERATIONS MANAGER - 12/15/2020 12:00 PM CDT Patient Name: Marnie Roque : 1965 Today's Date: 12/15/2020 PCP: René Smallwood MD Referring: No ref. provider found Chief Complaint Patient presents with ??? Follow-up ??? Knee Pain ??? Leg Pain HPI Patient is returning with complaints of bilateral knee pain. She points to anterior aspect of bilateral knees and on the left pain can be on the lateral aspect extending up to the distal lateral thigh region. Pain described as sharp stabbing crushing type pain. Pain varies from moderate to severe in intensity. Patient was last seen approximately 8-9 months ago and is here for follow-up with an interest in pursuing DRG stim trial. She has obtain psychological evaluation. Pain present on a daily basis and significantly limits her mobility and activities of daily living. No Known Allergies Past Medical History: Diagnosis [...] 05/27/1994 Quit date: 12/11/2017 Years since quittin.0 ??? Smokeless tobacco: Never Used Substance and Sexual Activity ??? Alcohol use: Yes Comment: social ??? Drug use: No ??? Sexual activity: Defer Other Topics Concern ??? Not on file Social History Narrative ??? Not on file Social Determinants of Health Financial Resource Strain: ??? Difficulty of Paying Living Expenses: Food Insecurity: ??? Worried About Running Out of Food in the Last Year: ??? Ran Out of Food in the Last Year: Transportation Needs: ??? Lack of Transportation (Medical): ??? Lack of Transportation (Non-Medical): Physical Activity: ??? Days of Exercise per Week: ??? Minutes of Exercise per Session: Stress: ??? Feeling of Stress : Social Connections: ??? Frequency of Communication with Friends and Family: ??? Frequency of Social Gatherings with Friends and Family: ??? Attends [employer] Services: ??? Active Member of Clubs or Organizations: ??? Attends Club or Organization Meetings: ??? Marital Status: Intimate Partner Violence: ??? Fear of Current or Ex-Partner: ??? Emotionally Abused: ??? Physically Abused: ??? Sexually Abused: Family History Problem Relation Age of Onset [...] arthralgias, gait problem, joint swelling and myalgias. Negative for back pain. Skin: Negative. Neurological: Negative for dizziness, syncope, weakness, light-headedness and headaches. Hematological: Negative. Psychiatric/Behavioral: Negative. Physical Exam Vitals: 12/15/20 1203 BP: 127/72 BP Location: Left arm Patient Position: Sitting Pulse: 80 Resp: 20 SpO2: 99% There is no height or weight on [...] normal. Assessment Problem List Musculoskeletal and Injuries Failed total knee arthroplasty (CMS/HCC) - Primary Overview Added automatically from request for surgery [id number] Chronic pain of both knees Neuro Peroneal neuropathy at knee, left Complex regional pain syndrome type 1 of both lower extremities Chronic postoperative pain Plan Pre-hypertension/Hypertension: The patient [...] try weight loss and exercise for management. Plan is to pursue DRG stim trial bilaterally at L3/L4 level. This was discussed at great length with the patient she wishes to pursue this although she is somewhat anxious. In addition she still has a few oxycodone remaining but we will provided with additional prescription for oxycodone to be taken t.i.d. p.r.n. total quantity 30. Follow-up post DRG trial. This dictation was performed using M*Modal dictation. There may be some him clerk variances which are not appreciated or corrected in this note. documented in this encounter Plan of Treatment Not on file documented as of this encounter Visit Diagnoses Diagnosis Failure of total knee replacement, sequela- Primary Complex regional pain syndrome type 1 of both lower extremities Peroneal neuropathy at knee, left Chronic postoperative pain Other chronic postoperative pain Chronic pain of both knees documented in this encounter Care Teams Detail Technician Relationship Specialty Start Date End Date René Smallwood MD PCP - General Family Medicine 02/11/20 René Smallwood MD Family Medicine 02/11/20 documented as of this encounter
--- OUTSIDE RECORDS SUMMARY | 2024-05-11 17:34 | XMS_ITS | Encounter Summary ---
Author Organization [facility] Address [address] [place] [address] Phone Care Team Providers Care Auto Detailer Name Role Phone René Smallwood MD Primary Care Provider [phone] René Smallwood MD Unavailable [phone] Encounter Details Date Type Department Care Team (Late st Contact Info) Description 03/31/2020 Telephone [facility] Neurosurgery [address] [facility] Medical Office Building [address] [place] [address] Suzan Sanches NP [address] [place] [address] Social History Tobacco Use Types Packs/Day Years Used Date Smoking Tobacco: Former Cigarettes 0.3 23.5 0 05/27/1994 - 12/11/2017 Smokeless Tobacco: Never Alcohol Use Standard Drinks/Week Comments Yes 0 (1 standard drink = 0.6 oz pur e alcohol) social Comments No Sex and Gender Information Value Date Recorded Sex Assigned at Not on file Legal Sex Female 11:20 AM GLASS CLEANER Gender Identity Not on file Sexual Orientation Not on file Occupation Industry Job Start Date Job End Date unemployed/disability Not on file Not on file Not on file documented as of this encounter Miscellaneous Notes * Telephone Encounter - Suzan Sanches NP - 03/31/2020 11:18 AM GLASS CLEANER I attempted to call the patient twice for her tele Health appointment today. At her last appointment, it was recommended that she undergo aggressive physical therapy. I have not received any care plans, so I am assuming that she did not follow this recommendation. 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 She has previously had several injections at L4-5 and L5-S1, I was going to recommend that she undergo a L5 selective nerve root injection 1 more time and if the patient does not receive any relief from this, then there is nothing we can offer from a neurosurgical standpoint. S CLEANER documented in this encounter Plan of Treatment Not on file documented as of this encounter Visit Diagnoses Not on filedocumented in this encounter Care Teams Auto Detailer Relationship Specialty Start Date End Date René Smallwood MD PCP - General Family Medicine 02/11/20 René Smallwood MD Family Medicine 02/11/20 documented as of this encounter
--- OUTSIDE RECORDS SUMMARY | 2024-05-11 17:34 | XMS_ITS | Encounter Summary ---
Author Organization [facility], [facility] Address [address] [facility] [address] [place] [address] Phone Care Team Providers Care Military Administrative Technician Name Role Phone René Smallwood MD Primary Care Provider [phone] [phone] Reason for Visit * Reason Comments Post-op POV; DRAIN REM * Consultation (Routine) - Closed Specialty Diagnoses / Procedures Referred By Liz falcon Referred To Contact Plastic Surgery Diagnoses Bilateral leg pain René Smallwood MD Phone: tel: fax: Joseph Bianchi III, MD [address] [facility] [phone] [place] [address] Phone: tel: fax: Referral ID Status Reason Start Date Expiration Date V isits Requested Visits Authorized [id number] Closed Specialty Services Required 03/03/2020 03/03/2021 12 12 Encounter Details Date Type Department Care Team (Late st Contact Info) Description 12/16/2019 10:00 AM CDT Office Visit [facility] Surgery [address] [place] [address] [address] [place] [id number] Peroneal neuropathy at knee, left (Primary Dx) Social History Tobacco Use Types Packs/Day Years Used Date Smoking Tobacco: Former Cigarettes 0.5 25 0 05/27/1992 - 05/27/2017 Smokeless Tobacco: Never Alcohol Use Standard Drinks/Week Comments Yes 0 (1 standard drink = 0.6 oz pur e alcohol) social Comments No Sex and Gender Information Value Date Recorded Sex Assigned at Not on file 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 YOU MAY BEGIN SCAR MASSAGE/DESENSITIZATION SCAR MASSAGE: Purpose: Scar massage can begin one week after suture removal. Scar massage is important after surgery as it helps to soften the skin and reduce scarring. It willalso reduce itching and help the joints nearby move better. The main point of scar massage is to mobilize the tissue by moving it in different directions. 1. Scar massage begins when: ??? The skin is closed (usually after stitches are removed) ??? The scar is pink in color ??? No scabs are present 2. Use lotion enriched with either: ??? Vitamin E ??? Smock butter ??? Lanolin *NO lotion should be used when the wound is open. 3. Massage the scar with your finger or thumb and move the skin in 3 directions: Up and down the length of the scar Side to side across the scar In a circular motion over the entire scar Perform scar massage for 3 minutes at least 3 times daily for several months following surgery. It will make a difference! 1) It will help make the incision disappear 2) It will help to prevent scar tissue beneath the skin which can cause problems 3) It feels good Also, remember to wear sunscreen on your scars when you are in the sun for prolonged periods of time- this is most important for the first 12 months after surgery!Keep your surgical dressing clean, dry, and in place x 2 days. You may then remove the dressing and begin washing the area/s twice dailywith soap and water, pat dry, apply vaseline along the length of incision/s. Only apply bandage if necessary (gardening, gym, working on cars, etc). Otherwise, leave open to air as this is good for healing. documented in this encounter Progress Notes * Berkley Yanez, VARSITY BASEBALL COACH - 12/16/2019 10:00 AM CDT Images from the original note were not included. Plastic Surgery Follow Up Note=Nurse Visit Marnie Roque : 1965 DOS: 12/16/19 Date of Surgery: 12/03/2019; Decompression of the left common peroneal nerve; & left saphenous nerve in thigh. Pt is S/P 13 days POV; Decompression of the left common peroneal nerve; & left saphenous nerve in thigh and is here for a nurse visit to have her drain removed from left thigh, & incision check. Pt arrives with mom and is using bilateral crutches at this time for guidance & balance, butis moving much better than our initial visit. Pt states that her pain has improved, but the drain is causing some discomfort & sensitivity, but overall, her left leg pain presently is about a 4-5on pain scale. She states that at times it's difficult because her Right leg has the same pain, andplans to have this surgically done in about [address] Bianchi. Drain amounts for the last 3 full days are= 12/13/19=9 12/14/19=<10 12/15/19= <10 This was carefully removed and pt tolerated the procedure well. Area was cleaned with foamy soap & water and covered with Tegraderm+pad & Bacitracin. Both incisions on Left leg were dried andintact with no signs of infection or dehiscence. These areas were cleaned with foamy soap and waterand covered with Medipore+pad and Vaseline. Overall, pt is doing very well post operatively. I advise her to go ahead and start using, bending and not being so guarded with her left leg and always using her crutches. She states this helps her with her pain in Right Leg & balancing. I told her to try to do more on own without them to strengthen up the left leg prior to doing surgery on the Right leg next. Pt can start scar massage in about 7-14 days. Instructions given on scar massage, & post op drain care to site. Pt voices understanding. Pt will be following up with Dr. Bianchi around 6 week POV,and advised to call sooner if any questions or concerns. Dr. Bianchi notified and pictures taken and uploaded in [employer]. Berkley Yanez LPN documented in this encounter Plan of Treatment Not on file documented as of this encounter Visit Diagnoses Diagnosis Peroneal neuropathy at knee, left- Primary documented in this encounter Care Teams Military Administrative Technician Relationship Specialty Start Date End Date René Smallwood MD PCP - General Family Medicine 12/02/17 02/10/20 documented as of this encounter
--- OUTSIDE RECORDS SUMMARY | 2024-05-11 17:34 | XMS_ITS | Encounter Summary ---
Author Organization [facility] Healthcare Address [address] [place] [address] Care Team Providers Care Salt Lifter Name Role Phone René Smallwood MD Primary Care Provider [phone] René Smallwood MD Unavailable [phone] Reason for Referral * Diagnostic Imaging (Routine) - Closed Specialty Diagnoses / Procedures Referred By Liz falcon Referred To Contact Radiology Diagnoses Pain Procedures FL Fluoro Guidance for Spine Needle Placement Olegario Adair MD Phone: tel: fax: [address] [phone] Referral ID Status Reason Start Date Expiration Date Visits Re quested Visits Authorized [id number] Closed 02/03/2021 03/05/2022 1 1 Reason for Visit * Diagnostic Imaging (Routine) - Closed Specialty Diagnoses / Procedures Referred By Liz falcon Referred To Contact Radiology Diagnoses Pain Procedures FL Fluoro Guidance for Spine Needle Placement Olegario Adair MD Phone: tel: fax: [address] [phone] Referral ID Status Reason Start Date Expiration Date Visits Re quested Visits Authorized [id number] Closed 02/03/2021 03/05/2022 1 1 Encounter Details Date Type Department Care Team (Latest Contact Info) Description 02/03/2021 7:42 AM CDT - 02/03/2021 11:59 PM CDT Hospital Encounter [facility] Diagnostic Imaging [address] [place] [address] Pain Discharge Disposition: Discharge to home or [...] on file Legal Sex Female 11:20 AM RESIDENT SERVICES DIRECTOR Gender Identity Not on file Sexual [...] or self care documented in this encounter Miscellaneous Notes * Provider Query - Ena Escalona - 02/03/2021 7:45 AM CDT Specify the diagnosis, after study, that best reflects the clinical condition being monitored, evaluated, or treated. Document in the medical record and on the form below. __x_ Complex regional pain syndrome bilateral lower extremities, Type I ___ Complex regional pain syndrome bilateral lower extremities, Type II ___ Other, specify below ___ Clinically unable to determine Additional Provider Response: Clinical Indicators/Treatments: Op Note by Olegario Adair MD at 02/03/2021 9:00 AM PREOPERATIVE DIAGNOSES: Complex regional pain syndrome bilateral lower extremities, chronic postoperative knee pain. POSTOPERATIVE DIAGNOSES: Same Use of the following terms are NOT acceptable in the outpatient setting: likely, suspected, consistent with, possible, or probable. This documentation will become part of the patient???s medical record. Sincerely, Ena Escalona CCS, [facility] Health Information Management documented in this encounter Plan of Treatment Not on file documented as of this encounter Procedures Procedure Name Priority Date/Time Associated Diagnosis Comments IR DISC ASPIRATION Schedule Routine, Read Routine (OP Routine) 02/03/2021 10:22 AM CDT Pain documented in this encounter Results * FL Fluoro Guidance for Spine Needle Placement (02/03/2021 10:22 AM CDT) Narrative RAD_PACS_ - 02/03/2021 10:23 AM CDT The images from this study are not interpreted by Radiology. ??Please refer to the physician's procedure / OR operative note. Olegario Adair MD IMG IR PROCEDURES Fin al Result RAD_PACS_CH documented in this encounter Visit Diagnoses Diagnosis Pain Generalized pain documented in this encounter Care Teams Salt Lifter Relationship Specialty Start Date End Date René Smallwood MD PCP - General Family Medicine 02/11/20 René Smallwood MD Family Medicine 02/11/20 documented as of this encounter
--- OUTSIDE RECORDS SUMMARY | 2024-05-11 17:34 | XMS_ITS | Encounter Summary ---
Author Organization [facility] Address [address] [facility] [address] [place] [address] Phone Care Team Providers Care Chef Assistant Name Role Phone René Smallwood MD Primary Care Provider [phone] René Smallwood MD Unavailable [phone] Reason for Visit * Consultation (Routine) - Closed Specialty Diagnoses / Procedures Referred By Liz falcon Referred To Contact Plastic Surgery Diagnoses Bilateral leg pain René Smallwood MD Phone: tel: fax: Joseph Bianchi III, MD [address] [facility] [phone] [place] [address] Phone: tel: fax: Referral ID Status Reason Start Date Expiration Date V isits Requested Visits Authorized [id number] Closed Specialty Services Required 03/03/2020 03/03/2021 12 12 Encounter Details Date Type Department Care Team (Late st Contact Info) Description 03/11/2020 11:30 AM CDT Office Visit [facility] Surgery [address] [place] [address] [address] [place] [address] Joseph Bianchi III, MD [address] [facility] [phone] [place], [place] [id number] Complex regional pain syndrome type 1 of both lower extremities (Primary Dx) Social History Tobacco Use Types Packs/Day Years Used Date Smoking Tobacco: Former Cigarettes 0.3 23.5 0 05/27/1994 - 12/11/2017 Smokeless Tobacco: Never Alcohol Use Standard Drinks/Week Comments Yes 0 (1 standard drink = 0.6 oz pur e alcohol) social Comments No Sex and Gender Information Value Date Recorded Sex Assigned at Not on file Legal 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 Unfortunately, she feels that, while her painseemed initially to improve for 2 weeks or so, it has recurred and she has no relief from the surgery. She is tearful and quite depressed about this. I have told her that I do not think further surgical intervention from the peripheral nerve perspective is warranted at this point. She would like toknow what could be done, and I have encouraged her to follow up with Dr. Adair regarding the possibility of a spinal cord stimulator, as it seems unlikely that there will be a medical or direct surgical control of her pain. She is going to reach out to him and see what her options are from that perspective. I spent 10 minutes on this patient encounter, over half of which was [id number] time spent counseling and coordinating care. documented in this encounter Plan of Treatment Not on file documented as of this encounter Visit Diagnoses Diagnosis Complex regional pain syndrome type 1 of both lower extremities- Primary documented in this encounter Care Teams Chef Assistant Relationship Specialty Start Date End Date René Smallwood MD PCP - General Family Medicine 02/11/20 René Smallwood MD Family Medicine 02/11/20 documented as of this encounter
--- OUTSIDE RECORDS SUMMARY | 2024-05-11 17:34 | XMS_ITS | Encounter Summary ---
Author Organization [facility] Healthcare Address [address] [place] [address] Care Team Providers Care Bottling Supervisor Name Role Phone René Smallwood MD Primary Care Provider [phone] René Smallwood MD Unavailable [phone] Encounter Details Date Type Department Care Team (Late st Contact Info) Description 02/03/2021 7:29 AM CDT - 02/03/2021 7:41 AM CDT Hospital Encounter [facility] [address] [place] [address] Olegario Adair MD [id number] [place] [address] [address] [place] [address] Complex regional pain syndrome type 1 of both lower extremities; Chronic pain of both knees; 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; Chronic postoperative pain Discharge Disposition: Discharge to [...] on file Legal Sex Female 11:20 AM TRAIN BRAKER Gender Identity Not on file Sexual Orientation Not on file Occupation Industry Job Start Date Job End Date unemployed/disability Not on file Not on file Not on file documented as of this encounter Last Filed Vital Signs Vital Sign Reading Time Taken Comments Blood Pressure 147/61 02/03/2021 10:24 AM CDT Pulse 64 02/03/2021 10:24 AM CDT Temperature 36.6 ??C (97.8 ??F) 02/03/2021 7:37 AM CD T Respiratory Rate 16 02/03/2021 10:24 AM CDT Oxygen Saturation 97% 02/03/2021 10:24 AM CDT Inhaled Oxygen Concentration - - Weight - - Height - - Body Mass Index - - documented in this encounter Discharge Instructions * Discharge Instructions* Regina Gutierrez RN - 02/03/2021 11:38 AM CDT [facility] Olegario Adair MD [phone] Post-Procedure Instructions for spinal cord stimulator trial -No bending, twisting or lifting while leads are in place. -Sponge bath only while leads are in place. No shower or tub bath. -Do not restart blood thinners while leads are in place. You may take your other medications. -You may not drive, drink alcohol, operate heavy machinery, or make any important decisions for at least 24 hours after your procedure. -Call the pain management center if you experience visual changes, loss of control of your bowels or bladder, or have signs of infection ( temperature of 100.4 or greater, or abnormal drainage at theinjection site). -Call the pain management center immediately with any of these symptoms at [phone]. After hours contact the [facility] at [phone] and she will reach your physician for you. -Do not try and pull off tape, just reinforce if it start to peel up. In case of an emergency call 911 documented in this encounter Medications at Time [...] H&P Notes * Olegario Adair MD - 02/03/2021 9:00 AM CDT Patient Name: Marnie Roque : 1965 Today's Date: 02/03/2021 PCP: René Smallwood MD Referring: No ref. [...] and Family: Not on file ??? Attends Mandaeism Services: Not on file ??? Active Member [...] mg tablet topiramate (TOPAMAX) 50 mg tablet ROS: WNL for pt PE: WNL for pt Plan: Bilateral L3/4 and L4/5 DRG trial. We discussed possible genicular nerve blocks and peripheral nerve stimulator as an alternative option also. documented in this encounter Miscellaneous Notes * Op Note - Olegario Adair MD - 02/03/2021 9:00 AM CDT PROCEDURE PERFORMED: DRG spinal cord stimulator trial with percutaneous implant of 2 leads/arrays PREOPERATIVE DIAGNOSES: Complex regional pain syndrome bilateral lower extremities, chronic postoperative knee pain. POSTOPERATIVE DIAGNOSES: Same INDICATIONS FOR PROCEDURE: This is a very pleasant patient with the above sources of pain who has tried and failed more conservative measures. SURGEON: Emerson Adair CONTEMPORARY OR MODERN DANCER: [facility] ANESTHESIA: Monitored anesthesia care. ESTIMATED BLOOD LOSS: Minimal. COMPLICATIONS: None DESCRIPTION OF PROCEDURE: I reviewed the most recent history and physical, and there were no changes noted. After review of risks/benefits, written informed consent was obtained. Risks discussed included but were not limited to: headache, cerebrospinal fluid leak, bleeding, infection, lack of pain control, lead migration, painful lead or generator site, possible requirement for revision, etc. Thepatient was taken to the procedure room and allowed to place themself in the prone position. The patient received IV antibiotics preoperatively. All pressure points were checked and padded and standard anesthesia monitors were applied. The thoracolumbar region was prepped and draped in the usual fashion. Fluoroscopy was used to identify the L3/4 interlaminar space. Approximately 1.5 vertebral body levels below this and contralateral to the target foramen, the skin and subcutaneous tissues were a nesthetized with local (note all local used is 1% lidocaine with 1:200,000 epinerphrine). A #22g 3.5 spinal needle was used to administer deeper local anesthetic as well. Next, from a contralateral approach, a Tuohy needle was advanced using fluoroscopic guidance and loss of resistance technique until the epidural space was accessed at the above interspace. The sheath containing the spinal cord stimulator lead was then advanced under live fluoroscopic imaging until it exited the the neuroforamen. Next, further lead was advanced slightly and strain-relief loops were placed within the epiduralspace. This identical procedure was repeated at the L4/5 level as well. With the help of the [facility] representative, testing of the leads was performed which revealed good coverage of the painful areas for the L4 dorsal root ganglion but not at L3. Therefore the lead at the L3-4 level was removed. Talib repeated the above steps to access the space on the right at the L4-5 neural foramen for the right L4 nerve root. Testing revealed good coverage and again loops were placed. At this point, the sheath, stylette, and needle were removed. The leads were then anchored to the skin with suturing theanchor down on the lead. Antibiotic ointment was placed at the percutaneous entry sites of the skinfollowed by 4 x 4 and Tegaderm. Aseptic technique was utilized throughout. Location/laterality were confirmed with the patient and staff during timeout. The patient tolerated the procedure well, and there were no apparent complications. There were no neurosensory changes. The patient was brought to the recovery area. Vital signs stable. Injection site clean, dry, and intact. Post procedure instructions were given to the patientand a follow up confirmed. 24-hour contact information provided. The patient was instructed to callin the event of severe pain, bleeding, neurological deficit, fever, or other significant concerns, and to call 911 if there is any concern for any emergency. The patient denies complaints and is discharged. * Addendum Note - Regina Gutierrez RN - 02/03/2021 9:00 AM CDTEncounter addended by: Regina Gutierrez RN on: 02/03/2021 1:04 PM Actions taken: Procedure log completed * Addendum Note - Sujatha Negrete RN - 02/03/2021 9:00 AM CDTEncounter addended by: Sujatha Negrete RN on: 02/03/2021 3:17 PM Actions taken: Flowsheet accepted * Addendum Note - Haley Smith RN - 02/03/2021 7:41 AM CDTEncounter addended by: Haley Smith RN on: 02/06/2021 7:45 AM Actions taken: Charge Capture section accepted, One-Step Medication filed documented in this encounter Plan of Treatment Not on file documented as of this encounter Visit Diagnoses Diagnosis Complex regional pain syndrome type 1 of both lower extremities Chronic pain of both knees 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 Chronic postoperative pain Other chronic postoperative pain documented in this encounter Administered Medications Inactive Administered Medications - up to 3 most recent administrations Medication Order MAR Action Action Date Dose Rate Site ceFAZolin (ANCEF) injection Administer over 3 Minutes, As needed, Starting on Sat02/03/21 at 0831, Intra-Op Given 02/03/2021 8:34 AM CDT 2,000 mg Right Hand fentaNYL (SUBLIMAZE) preservative free injection As needed, Starting on Sat02/03/21 at 0834, Intra-Op Given 02/03/2021 8:49 AM CDT 50 mcg Given 02/03/2021 8:43 AM CDT 50 mcg Given 02/03/2021 8:34 AM CDT 50 mcg lidocaine-EPINEPHrine (XYLOCAINE with EPI) 1 %-1:200,000 preservative free injection As needed, Starting on Sat02/03/21 at 0839, Intra-Op, Indications: Administration of Local AnesthesiaIndications:Administration of Local Anesthesia Given 02/03/2021 10:03 AM CDT 3 mL Given 02/03/2021 9:33 AM CDT 3 mL Given 02/03/2021 8:39 AM CDT 2 mL midazolam (VERSED) 1 mg/mL preservative free injection Administer over 2 Minutes, As needed, Starting on Sat02/03/21 at 0835, Intra-Op Given 02/03/2021 9:36 AM CDT 1 mg Given 02/03/2021 9:09 AM CDT 1 mg Given 02/03/2021 9:00 AM CDT 0.5 mg documented in this encounter Care Teams Bottling Supervisor Relationship Specialty Start Date End Date René Smallwood MD PCP - General Family Medicine 02/11/20 René Smallwood MD Family Medicine 02/11/20 documented as of this encounter
--- OUTSIDE RECORDS SUMMARY | 2024-05-11 17:34 | XMS_ITS | Encounter Summary ---
Author Organization [facility] Healthcare Address [address] [place] [address] Care Team Providers Care Wool Grower Name Role Phone René Smallwood MD Primary Care Provider + [phone] René Smallwood MD Unavailable [phone] Encounter Details Date Type Department Care Team (Late st Contact Info) Description 12/15/2020 Telephone [facility] [address] [place], [place] [id number] [place] [address] [facility] [address] [place] [address] Social History Tobacco Use Types Packs/Day Years Used Date Smoking Tobacco: Former Cigarettes 0.3 23.5 0 05/27/1994 - 12/11/2017 Smokeless Tobacco: Never Alcohol Use Standard Drinks/Week Comments Yes 0 (1 standard drink = 0.6 oz pur e alcohol) social Comments No Sex and Gender Information Value Date Recorded Sex Assigned at Not on file Legal Sex Female 11: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
--- OUTSIDE RECORDS SUMMARY | 2024-05-11 17:34 | XMS_ITS | Encounter Summary ---
Author Organization [facility] Healthcare Address [address] [place] [address] Care Team Providers Care Dynamics Ax Developer Name Role Phone René Smallwood MD Primary Care Provider [phone] René Smallwood MD Unavailable [phone] Reason for Visit * Reason Comments Follow-up Knee Pain Extremity Pain Encounter Details Date Type Department Care Team (Late st Contact Info) Description 04/08/2020 2:20 PM WAREHOUSE HELPER - 04/08/2020 11:59 PM WAREHOUSE HELPER Hospital Encounter [facility] [id number] [phone] [place] [address] [facility] [address] [id number] Complex regional pain syndrome type 1 of both lower extremities (Primary Dx); Chronic postoperative pain; Peroneal neuropathy at knee, left; Saphenous nerve neuropathy, left; Mechanical loosening of internal left knee prosthetic joint, sequela; Failure of total knee replacement, sequela; 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 Discharge Disposition: Discharge to home or self [...] on file Legal Sex Female 11:20 AM WAREHOUSE HELPER Gender Identity Not on file Sexual Orientation Not on file Occupation Industry Job Start Date Job End Date unemployed/disability Not on file Not on file Not on file documented as of this encounter Last Filed Vital Signs Vital Sign Reading Time Taken Comments Blood Pressure 141/100 04/08/2020 2:33 PM WAREHOUSE HELPER Pulse 104 04/08/2020 2:33 PM WAREHOUSE HELPER Temperature 36.7 ??C (98 ??F) 04/08/2020 2:33 PM WAREHOUSE HELPER Respiratory Rate 20 04/08/2020 2:33 PM WAREHOUSE HELPER Oxygen Saturation 100% 04/08/2020 2:33 PM WAREHOUSE HELPER Inhaled Oxygen Concentration - - Weight - [...] needed for pain 28 tablet 04/08/2020 05/10/2021 rizatriptan (MAXALT) 10 mg tablet 02/17/2020 07/12/2021 topiramate (TOPAMAX) 25 mg tabletIndication s:Migraine Prevention Take 100 mg by mouth 2 (two) times a day 12/30/2017 07/12/2021 topiramate (TOPAMAX) 50 mg tablet Take 100 mg by mouth 2 (two) times a day 01/26/2020 04/09/2023 documented as of this encounter Ordered Prescriptions Prescription Sig Dispense Quantity Refills Last Filled Start Date End Date oxyCODONE-acetamin ophen (PERCOCET) 5-325 mg per tabletIndications: Pain Take 1 tablet by mouth every 4 (four) hours as needed for pain 28 tablet 04/08/2020 05/10/2021 documented in this encounter Discharge Disposition Disposition Code Departure Means Destination Discharge to home or self care documented in this encounter Progress Notes * Olegario Adair MD - 04/08/2020 2:30 PM CST Patient Name: Marnie Roque : 1965 Today's Date: 04/09/2020 PCP: René Smallwood MD Referring: No ref. provider found Chief Complaint Patient presents with ??? Follow-up ??? Knee Pain ??? Extremity Pain HPI Marnie Roque is a 54 y.o. female seen in consultation today for follow up. She presents with bilateral knee pain in the setting of numerous knee surgeries bilaterally (L>R). Her pain radiatesto the entirety of the bilateral lower extremities. Her pain began in 2014. The pain is described as constant aching and soreness. It rates 8/10 on the numeric pain scale. Provocative factors includestanding and ambulating. Alleviating factors include rest. Patient denies any motor weakness or bowel/bladder issues. Since her last visit, Marnie has had some relief of pain with oral medication. Shedenies any side effects. She denies relief of pain after nerve transposition by Dr. Bianchi. She is minimally active at this time due to pain. She is interested in spinal cord stimulator trial. She isgoing to have Psych Evaluation in anticipation of SCS trial. Therapeutic modalities attempted to date include multiple knee surgeries, such as failed total kneearthroplasty. No Known Allergies Past Medical History: Diagnosis Date ??? Anxiety ??? Arthritis ??? Depression ??? Hyperthyroidism ??? Hypothyroidism ??? Migraines ??? Obesity Patient Active Problem List Diagnosis ??? Failed [...] peroneal neuropathy of left lower extremity Past Surgical History: Procedure Laterality Date ??? [...] ??? Highest education level: Not on file Tobacco Use ??? Smoking status: Former Smoker Packs/day: 0.25 Types: Cigarettes Start date: 05/27/1994 Quit date: 12/11/2017 Years since quittin.3 ??? Smokeless tobacco: Never Used Substance and Sexual Activity ??? Alcohol use: Yes Comment: social ??? Drug use: No ??? Sexual activity: Defer Family History Problem Relation Age of Onset [...] of Systems Review of Systems Constitutional: Negative. Negative for chills, fever and unexpected weight change. HENT: Negative. Negative for hearing loss, nosebleeds and sore throat. Eyes: Negative. Negative for discharge and redness. Respiratory: Negative. Negative for cough, chest tightness, shortness of breath and wheezing. Cardiovascular: Negative. Negative for chest pain and palpitations. Gastrointestinal: Negative. Negative for abdominal distention and vomiting. Endocrine: Negative. Negative for polydipsia and polyuria. Genitourinary: Negative. Negative for difficulty urinating, frequency and urgency. Musculoskeletal: Positive for arthralgias and back pain. Skin: Negative. Negative for color change and rash. Allergic/Immunologic: Negative. Negative for environmental allergies and immunocompromised state. Neurological: Negative. Negative for dizziness and seizures. Hematological: Negative. Negative for adenopathy. Does not bruise/bleed easily. Psychiatric/Behavioral: Positive for dysphoric mood. Negative for confusion, decreased concentration and hallucinations. All other systems reviewed and are negative. Physical Exam Vitals: 04/08/20 1433 BP: 141/100 Pulse: 104 Resp: 20 Temp: 98 ??F (36.7 ??C) SpO2: 100% Estimated body mass index is 40.62 kg/m?? as calculated from the following: Height as of 02/22/20: 154.9 cm (5' 1 ). Weight as of 02/22/20: 97.5 kg (215 lb). Physical Exam Vitals signs and nursing note reviewed. Constitutional: Appearance: She is well-developed. HENT: Head: Normocephalic and atraumatic. Eyes: Conjunctiva/sclera: Conjunctivae normal. Pupils: Pupils are equal, round, and reactive to light. Neck: Musculoskeletal: Neck supple. Trachea: No tracheal deviation. Cardiovascular: Rate and Rhythm: Normal rate. Pulmonary: Effort: Pulmonary effort is normal. Abdominal: Palpations: Abdomen is soft. Musculoskeletal: Normal range of motion. Legs: Skin: General: Skin is dry. Neurological: Mental Status: She is alert and oriented to person, place, and time. Cranial Nerves: No cranial nerve deficit. Sensory: No sensory deficit. Gait: Gait abnormal. Psychiatric: Speech: Speech normal. Behavior: Behavior normal. Pre-hypertension/Hypertension: The patient has been informed that [...] try weight loss and exercise for management. Tobacco Screening: Marnie Roque was screened for tobacco use. Patient is not a tobacco user. Tobacco counseling not applicable. Review of Data: PEG and COMM questionnaires were reviewed. Most recent urine toxicology screen was reviewed, along with local prescription drug monitoring program. Assessment Encounter Diagnoses Name Primary? Complex regional pain syndrome type 1 of both lower extremities Yes ??? Chronic postoperative pain ??? Peroneal neuropathy at knee, left ??? Saphenous nerve neuropathy, left ??? Mechanical loosening of internal left knee prosthetic joint, sequela ??? Failure of total knee replacement, sequela ??? 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 She is quite upset and anxious today understandably. We had a long discussion about her options and I think importantly I have really detailed for her that I am not going to additionally diagnose any type of additional pathology could treat the underlying issue. I think what we would have to offer would be dorsal column stimulation verses peripheral nerve stimulation but more likely our primary recommendation is dorsal rootganglion stimulation. She has had so many surgeries that at this point I do not think that some additional surgery would result in drastic improvement but if that something that she wants to look into obviously she can follow-up with orthopedics. After much discussion she would like to plan for dorsal root ganglion spinal cord stimulator trial which will likely be done at bilateral L3-4. We did discuss use doing this on 1 side and given that there similar extrapolated in the results for permanent placement a bilateral however she declines. Therefore we will do bilateral. She has also almost out of Percocet tablets which she uses exceedingly sparingly. I did get her prescription today for Percocet 5/325 with 28 tablets that I expect will last for quite some time. For now we will see her back in hopefully the next month or 2 for bilateral L3-4 dorsal root ganglion stimulator trial. Goals of Treatment: Treat underlying pathology, improve pain control, improve function, and quality of life. Use of Medications: [...] may be discussed at the next visit. Semiconductor Packages Leak Tester: Semiconductor Packages Leak Tester done with [employer]: variances and inaccuracies may occur. Dictations not proofread. Problem list pertinent to today???s visit reviewed, but entire patient problem list not reviewed today. This note is prepared by Dillon Arguello, acting as a scribe for Emerson Adair MD. I electronically signed this note at 9:47 AM on 04/09/2020. I, Emerson Adair, have personally performed the services described in the documentation , reviewed the documentation as recorded by the scribe in my presence, and it accurately and completely records my words and actions though there are potential variances in recording and audio visual equipment rental clerk. Dictated not proofread. 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
--- OUTSIDE RECORDS SUMMARY | 2024-05-11 17:34 | XMS_ITS | Encounter Summary ---
Author Organization [facility] Address [address] [place] [address] Phone Care Team Providers Care Marine Service Manager Name Role Phone René Smallwood MD Primary Care Provider [phone] René Smallwood MD Unavailable [phone] Encounter Details Date Type Department Care Team (Late st Contact Info) Description 04/19/2020 2:30 PM PATTERN PERFORATING MACHINE OPERATOR Telemedicine [facility] [address] [place] [address] Santos Valenzuela, PhD [address] [place] [address] Major depressive disorder, single episode, in full remission (CMS/HCC) (Primary Dx); Other chronic pain Social History Tobacco Use Types Packs/Day Years Used Date Smoking Tobacco: Former Cigarettes 0.3 23.5 0 05/27/1994 - 12/11/2017 Smokeless Tobacco: Never Alcohol Use Standard Drinks/Week Comments Yes 0 (1 standard drink = 0.6 oz pur e alcohol) social Comments No Sex and Gender Information Value Date Recorded Sex Assigned at Not on file Legal Sex Female 11:20 AM PATTERN PERFORATING MACHINE OPERATOR Gender Identity Not on file Sexual Orientation Not on file Occupation Industry Job Start Date Job End Date unemployed/disability Not on file Not on file Not on file documented as of this encounter Progress Notes * Santos Valenzuela, PhD - 04/19/2020 2:30 PM CST Pain Psychology Initial Assessment This was a telemedicine visit with Marnie Roque which took place via Real- time video connection ([employer], [employer] or similar). During the visit, I was located in [place], [place] and the patientwas located in [place], [place]. The session started at 2:30 PM and ended at 3:10 PM. The patient has been informed that the visit may not be secure and acknowledged the information. I have explained the option of participating in a telephone or video visit during the [facility] emergency to the patient. After being given an opportunity to ask questions about and discuss this type of visit, the patient verbally consented to proceeding with the telephone / video visit. The patient understands that this service replaces an office visit and they may be billed and/or responsible for any applicable copayments. Name: Marnie Roque : 1965 Date of Service: 04/19/20 Start time: 2:30 PM End time: 3:10 PM Reason for referral: Marnie Roque is a 54 y.o. female who was referred by Dr. Olegario Adair for psychological assessment related to her candidacy and readiness for trial of a spinal cord stimulator for improved management of chronic leg and knee pain. Informants: The patient, who was considered reliable. History of present illness Details of injury or onset: Marnie reported that her pain problems began several years ago in her knees without any obvious precipitating events or circumstances. Since it began, her pain has been getting progressively more persistent and intense. Pain treatments and effectiveness Surgery (A total of eight surgeries between both knees, including partial replacements, revisions, and a nerve decompression): Not noticeably effective Steroid injections: Minimally effective Physical therapy: Not noticeably effective Aqua therapy: Not noticeably effective Current pain medications and effectiveness Percocet (As needed and taken only rarely): Minimally effective Pain characteristics and self-management strategies Marnie reported that her pain currently varies in intensity between 4 and 10 on a 10-point scale (0 = no pain; 10 worst imaginable pain). Her pain is made better by sitting, rest and pain medications and made worse by walking, bending and standing. Marnie deven with her pain by limiting physical activities that could exacerbate her pain, taking a warm shower, getting involved in enjoyable activities, resting as needed and taking pain medications. Has the patient retained an trademark attorney related to the pain problem? No Is there litigation pending related to the pain problem? 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 No Psychiatric history Diagnoses and relevant symptoms: Marnie reported a history of depression that began about 20 years ago after the of her father with symptoms that include low mood, loss of motivation and interest, and crying spells. However, those symptoms eventually went into remission and she has had no return of depression in many years. Psychiatrist: None Psychotropic medications: None currently, but has taken various medications in the past Psychotherapy or counseling: None Hospitalizations: Never Suicide attempts: Denied Substance use history Tobacco: Former smoker Alcohol: Occasional use in the past but not currently Illicit drugs: Occasional marijuana use in the past but not currently Personal and social history Education: Less than high school Employment: Unemployed Marital status: , but currently in a committed relationship Children: Three grown daughters Members of the household: Patient and her boyfriend Sources of assistance and support: Boyfriend, daughters Mental status exam (assessment based entirely on information available through telemedicine visit) APPEARANCE Level of consciousness: alert Attire: unable to assess Cleanliness and grooming: unable to assess Eye contact: N/A ATTITUDE: cooperative ACTIVITY: relaxed and calm PAIN BEHAVIOR: unable to assess MOOD ???Okay?? Type: euthymic AFFECT Appropriateness: appropriate Intensity: normal Mobility: mobile Range: full Reactivity: reactive SPEECH: regular rate and rhythm THOUGHT PROCESS: goal-directed, logical and sequential CONTENT OF THOUGHT: unremarkable COGNITION Orientation: alert and oriented x 3 Attention/Concentration: normal Recent memory: normal Remote memory: normal INSIGHT/JUDGMENT: good SUICIDALITY: Ideation: denied Plans: denied Intentions: denied Psychological testing No psychological testing was done with this assessment. Impressions Marnie Roque is a 54 y.o. female who is undergoing psychological evaluation prior to being considered as a candidate for trial of a spinal cord stimulator for improved management of her chronic pain. Favorable factors include: She has tried a variety of pain management modalities, all of which have provided only minimal or transitory benefit. She denied any past or current suicidal thoughts, intentions, or plans. She has done research on the spinal cord stimulator and appears to have an adequate understanding of its operation and implantation as well as a realistic understanding of its potential risks and benefits. She has ample family support for her decision to pursue consideration of a spinal cord stimulator. Unfavorable factors include: None significant Recommendations All considered, Marnie does not demonstrate any clear psychological or behavioral contraindications to trial of a spinal cord stimulator at this time. Diagnosis (F32.5) Major depressive disorder, single episode, in full remission (CMS/HCC) (primary encounter diagnosis) (G89.29) Other chronic pain NOTE: This patient's allergies, medications, and problem list were noted but not managed by me as anon-medical provider. Note not shared: Patient harm ERN PERFORATING MACHINE OPERATOR documented in this encounter Plan of Treatment Not on file documented as of this encounter Visit Diagnoses Diagnosis Major depressive disorder, single episode, in full remission (HCC)- Primary Major depressive disorder, single episode in full remission Other chronic pain documented in this encounter Care Teams Marine Service Manager Relationship Specialty Start Date End Date René Smallwood MD PCP - General Family Medicine 02/11/20 René Smallwood MD Family Medicine 02/11/20 documented as of this encounter
--- OUTSIDE RECORDS SUMMARY | 2024-05-11 17:35 | XMS_ITS | Encounter Summary ---
Author Organization [facility] Address [address] [place] [address] Phone Care Team Providers Care Code Enforcement Supervisor Name Role Phone René Smallwood MD Primary Care Provider [phone] Encounter Details Date Type Department Care Team (Latest Contact Info) Description 07/04/2018 Anticoagulation Tele phone Call [facility] Orthopaedic Surgery [address] [place] [address] [address] [place] [id number] Madonna Rodgers RN Social History Tobacco Use Types Packs/Day Years Used Date Smoking Tobacco: Former Cigarettes 0.5 25 0 05/27/1992 - 05/27/2017 Smokeless Tobacco: Never Alcohol Use Standard Drinks/Week Comments Yes 0 (1 standard drink = 0.6 oz pur e alcohol) social Comments No Sex and Gender Information Value Date Recorded Sex Assigned at Not on file Legal Sex Female 11:20 AM [id number] Gender Identity Not on file Sexual Orientation Not on file Occupation Industry Job Start Date Job End Date unemployed Not on file Not on file Not on file documented as of this encounter Plan of Treatment Not on file documented as of this encounter Procedures Procedure Name Priority Date/Time Associated Diagnosis Comments PROTIME-INR Routine 07/03/2018 documented in this encounter Results * (ABNORMAL) Protime-INR (07/03/2018) INR 1.80(A) 0.9 - 1.1 [facility] Blood specimen (specimen) us Sol [facility] BLOOD ORDERABLES Fi nal Result [facility] documented in this encounter Visit Diagnoses Not on filedocumented in this encounter Care Teams Code Enforcement Supervisor Relationship Specialty Start Date End Date René Smallwood MD PCP - General Family Medicine 12/02/17 02/10/20 documented as of this encounter
--- OUTSIDE RECORDS SUMMARY | 2024-05-11 17:35 | XMS_ITS | Encounter Summary ---
Author Organization [facility] Healthcare Address [address] [place] [address] Care Team Providers Care Drafter Apprentice Name Role Phone René Smallwood MD Primary Care Provider [phone] Reason for Referral * Diagnostic Imaging (Routine) - Closed Specialty Diagnoses / Procedures Referred By Contac t Referred To Contact Radiology Diagnoses Back pain, unspecified back location, unspecified back pain laterality, unspecified chronicity Procedures IR Transforaminal Epidural Injection Lumbar Sacral 1 Level Left Mark Chávez MD Phone: tel: fax: [address] [phone] Referral ID Status Reason Start Date Expiration Date Visits Re quested Visits Authorized [id number] Closed 02/20/2019 03/26/2019 1 1 Reason for Visit * Diagnostic Imaging (Routine) - Closed Specialty Diagnoses / Procedures Referred By Contac t Referred To Contact Radiology Diagnoses Back pain, unspecified back location, unspecified back pain laterality, unspecified chronicity Procedures IR Transforaminal Epidural Injection Lumbar Sacral 1 Level Left Mark Chávez MD Phone: tel: fax: [address] [phone] Referral ID Status Reason Start Date Expiration Date Visits Re quested Visits Authorized [id number] Closed 02/20/2019 03/26/2019 1 1 Encounter Details Date Type Department Care Team (Latest Contact Info) Description 02/26/2019 8:42 AM CDT - 02/26/2019 11:59 PM CDT Hospital Encounter [facility] [address] [place] [id number] Mark Chávez MD [address] [place] [address] Left lumbar radiculitis (Primary Dx); Back pain, unspecified back location, unspecified back pain laterality, unspecified chronicity Discharge Disposition: Discharge to home or self [...] on file 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 Gender Identity Not on file Sexual Orientation Not on file Occupation Industry Job Start Date Job End Date unemployed Not on file Not on file Not on file documented as of this encounter Last Filed Vital Signs Vital Sign Reading Time Taken Comments Blood Pressure 118/77 02/26/2019 9:20 AM CDT Pulse 87 02/26/2019 9:20 AM CDT Temperature - - Respiratory Rate 18 02/26/2019 9:20 AM CDT Oxygen Saturation 96% 02/26/2019 9:20 AM CDT Inhaled Oxygen Concentration - - Weight - - Height - - Body Mass Index - - documented in this encounter Discharge Instructions * Discharge Instructions* Ugo Gomez RN - 02/26/2019 9:29 AM CDT Pain diary and discharge instructions reviewed, patient voiced understanding. documented in this encounter Medications at Time of Discharge diazePAM (VALIUM) 5 mg tabletIndications :anxiety Take 5 mg by mouth nightly as needed at bedtime. 5 12/16/[address] (CYMBALTA) 60 mg capsule Take by mouth daily 3 10/30/2018 0 gabapentin (NEURONTIN) 300 mg capsuleIndication s:History of revision of total replacement of left knee joint TAKE 1 CAPSULE BY MOUTH THREE TIMES A DAY 90 capsule 09/30/2018 0 hydrOXYzine (VISTARIL) 25 mg capsuleIndication s:anxiety Take 1 capsule (25 mg total) by mouth 3 (three) times a day as needed for anxiety. 60 capsule 1 06/20/2018 0 levothyroxine sodium (TIROSINT) 112 mcg capsuleIndication s:hypothyroidism Take 1 capsule (112 mcg total) by mouth every morning 12/30/2017 3 lidocaine (XYLOCAINE) 5 % ointment 02/11/2019 0 meloxicam (MOBIC) 15 mg tabletIndications :Aftercare following right knee joint replacement surgery TAKE 1 TABLET BY MOUTH EVERY DAY 30 tablet 2 09/29/2018 0 oxyCODONE-acetami nophen (PERCOCET) 5-325 mg per tabletIndications :Pain Take 1-2 tablets by mouth every 4 (four) hours as needed for pain. 70 tablet 07/16/2018 0 salicylic acid 3 % shampoo Apply topically. 11/30/19 2 0 senna-docusate (PERICOLACE) 8.6-50 mgIndications:con stipation Take 2 tablets by mouth 2 (two) times a day. May increase to 4 tablets twice daily if needed. HOLD medication for diarrhea. 80 tablet 1 06/20/2018 0 topiramate (TOPAMAX) 25 mg tabletIndications :Migraine Prevention Take 100 mg by mouth 2 (two) times a day 12/30/2017 2 warfarin (COUMADIN) 2 mg tabletIndications :VTE Prophylaxis Following Ortho Surgery Take 2.5 tablets (total dose = 5 mg) orally daily at 5pm to thin blood for 4 weeks. 75 tablet 1 06/20/2018 0 documented as of this encounter Discharge Disposition Disposition Code Departure Means Destination Discharge to home or self care documented in this encounter Progress Notes * Mark Chávez MD - 02/26/2019 9:18 AM CDT Left L5-S1 Transforaminal Epidural Steroid Injection [facility] Department of Orthopedic Surgery Division of Physical Medicine and Rehabilitation Patient name: Marnie Roque Date of : 1965 Date of service: 02/26/2019 Marnie Roqeu presents to the fluoroscopy suite for a fluoroscopically guided left L5-S1 transforaminal epidural steroid injection for conservative treatment of lumbar radicular pain. After informed consent was obtained, the patient lay in the prone position on the fluoroscopy table. The area was prepped and draped in sterile fashion. Using a 25 gauge 2 inch needle, 1-2 mL of 1% lidocaine wasinfused subcutaneously to anesthetize the region. Then, a 22 gauge 5 inch spinal needle was advanced to the posterior superior transforaminal space and advanced into the epidural space under fluoroscopic guidance. Confirmation into the epidural space was obtained with infusion of 0.5 mL of Omnipaque contrast, which showed epidural flow as well as nerve sheath flow. Then a combination of 1 mL of 1% lidocaine and 10 mg of 10 mg/mL dexamethasone was infused. The patient tolerated the procedure without complications. Pre and post procedure blood pressure were stable. The patient was given verbal as well as written follow-up instructions. A pain diary was given to the patient with follow-up instructions. Prior to the start of the procedure, verbal verification by the procedure participant(s) confirmed (as applicable): correct patient identity; correct site/side marked and visible; agreement on the procedure to be done; correct patient positioning; an accurate procedure consent form, relevant imagesand results correctly labeled and displayed; any safety precautions based on clinical history and/or medication use have been addressed. Fluoroscopic guidance used to assist left L5-S1 transforaminal epidural steroid injection. Confirmation of needle placement into the epidural space via the left L5-S1 neural foramen was obtained by injecting approximately 0.5 mL of Omnipaque contrast under live fluoroscopy and DSA. There was no evidence of vascular uptake or subdural flow noted. I personally performed or was present for the procedure above. Mark Chávez MD documented in this encounter Plan of Treatment Not on file documented as of this encounter Procedures Procedure Name Priority Date/Time Associated Diagnosis Comments TRANSFORAMINAL EPIDURAL INJECTION LUMBAR SACRAL 1 LEVEL LEFT Schedule Routine, Read Routine (OP Routine) 02/26/2019 9:18 AM CDT Back pain, unspecified back location, unspecified back pain laterality, unspecified chronicity documented in this encounter Results * IR Transforaminal Epidural Injection Lumbar Sacral 1 Level Left (02/26/2019 9:18 AM CDT) Narrative [facility] - 02/26/2019 9:18 AM CDT The images from this study are not interpreted by Radiology. ??Please refer to the physician's procedure / OR operative note. us Mark Chávez MD IMG IR PROCEDURES Final Res ult [facility] documented in this encounter Visit Diagnoses Diagnosis Left lumbar radiculitis- Primary Back pain, unspecified back location, unspecified back pain laterality, unspecified chronicity documented in this encounter Administered Medications Inactive Administered Medications - up to 3 most recent administrations Medication Order MAR Action Action Date Dose Rate Site dexamethasone (DECADRON) preservative free solution Administer over 2 Minutes, Code/trauma/sedation medication, Starting on Nadya 02/26/19 at 0916 Given 02/26/2019 9:16 AM CDT 10 mg iohexol (OMNIPAQUE) 300 mg iodine/mL injection solution Code/trauma/sedation medication, Starting on Nadya 02/26/19 at 0917 Given 02/26/2019 9:17 AM CDT 0.5 mL lidocaine PF (XYLOCAINE) 10 mg/mL (1 %) preservative free injection Code/trauma/sedation medication, Starting on Nadya 02/26/19 at 0916, Intra-Procedure (IR), Indications: Administration of Local AnesthesiaIndications:Administrati on of Local Anesthesia Given 02/26/2019 9:16 AM CDT 1 mL documented in this encounter Care Teams Drafter Apprentice Relationship Specialty Start Date End Date René Smallwood MD PCP - General Family Medicine 12/02/17 02/10/20 documented as of this encounter
--- OUTSIDE RECORDS SUMMARY | 2024-05-11 17:35 | XMS_ITS | Encounter Summary ---
Author Organization [facility] Address [address] [place] [address] Phone Care Team Providers Care Tower Excavator Operator Name Role Phone René Smallwood MD Primary Care Provider [phone] Encounter Details Date Type Department Care Team (Late st Contact Info) Description 11/30/2019 Orders Only [facility] Surgery [address] [place] [address] [address] [place] [phone] Joseph Santana III, MD [address] [facility] [phone] [place], [place] [id number] Preoperative testing (Primary Dx) Social History Tobacco Use Types Packs/Day Years Used Date Smoking Tobacco: Former Cigarettes 0.5 25 0 05/27/1992 - 05/27/2017 Smokeless Tobacco: Never Alcohol Use Standard Drinks/Week Comments Yes 0 (1 standard drink = 0.6 oz pur e alcohol) social Comments No Sex and Gender Information Value Date Recorded Sex Assigned at Not on file 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 V.O. DR. SANTANA/ [employer], [employer] SALES REPRESENTATIVE documented in this encounter Plan of Treatment Not on file documented as of this encounter Results * COVID-19 Coronavirus RNA Nasopharyngeal (11/30/2019 1:41 PM CDT) COVID-19 RNA Not Detected FREEDOM LYON (MICHELE) Comment: Interpretive Data Testing performed at [facility]. The 2019-Novel Coronavirus Assay (COVID-19) Real Time RT-PCR assay is for in vitro diagnostic use under FDA emergency use authorization only. A negative RT-PCR result does not preclude infection with COVID-19 and should not be used as the sole basis for treatment or other patient management decisions. Additional sample types have been validated according to CLIA regulations. ?? Current Interpretive Data was last revised on 2019. Testing performed by: [facility], [address] [facility] [place]., [address] Nasopharyngeal 11/30/2019 1: 41 PM CDT 11/30/2019 5:35 PM CDT Narrative VINICIO LYON (MICHELE) - 12/01/2019 12:15 AM CDT Is the patient experiencing any symptoms consistent with COVID (eg. Fever, cough, shortness of breath)?->No What is the reason for testing?->Screening prior to scheduled (>12 hr) surgery or procedure Joseph Santana III, MD LAB MICROBIOLOGY - G ENERAL ORDERABLES Final Result VINICIO LYON (MICHELE) [address] [facility] Department [place] [address] documented in this encounter Visit Diagnoses Diagnosis Preoperative testing- Primary Unspecified pre-operative examination Preoperative testing Unspecified pre-operative examination documented in this encounter Care Teams Tower Excavator Operator Relationship Specialty Start Date End Date René Smallwood MD PCP - General Family Medicine 12/02/17 02/10/20 documented as of this encounter
--- OUTSIDE RECORDS SUMMARY | 2024-05-11 17:35 | XMS_ITS | Encounter Summary ---
Author Organization [facility] Address [address] [place] [address] Phone Care Team Providers Care Cell Tower Climber Name Role Phone René Smallwood MD Primary Care Provider [phone] Reason for Referral * Consultation (Routine) - Closed Specialty Diagnoses / Procedures Referred By Contjohanny t Referred To Contact Pain Management Diagnoses Saphenous nerve neuropathy, left Joseph Santana III, MD Phone: tel: fax: [place] [address] [facility] [address] [place] [address] Phone: tel: fax: Referral ID Status Reason Start Date Expiration Date V isits Requested Visits Authorized [id number] Closed Specialty Services Required 10/23/2019 05/03/2021 1 1 Question Answer Please select the performing region: External Order [[id number]] To provider: OLEGARIO ADAIR [[id number]] # of visits: 1 Comments PLEASE CALL PT CHRISTELLE. DR. SANTANA WILL BE SENDING A NOTE & TEXT DR. ADAIR. PAIN EVAL IN REGARDS TO LEFT LEG SAPHENOUS NEUROPATHY, PERONEAL NEUROPATHY Reason for Visit * Consultation (Routine) - Closed Specialty Diagnoses / Procedures Referred By Contac t Referred To Contact Plastic Surgery Diagnoses Bilateral leg pain René Smallwood MD Phone: tel: fax: Joseph Santana III, MD [address] [facility] [phone] [place] [address] Phone: tel: fax: Referral ID Status Reason Start Date Expiration Date V isits Requested Visits Authorized [id number] Closed Specialty Services Required 03/03/2020 03/03/2021 12 12 Encounter Details Date Type Department Care Team (Late st Contact Info) Description 10/23/2019 10:45 AM CDT Office Visit [facility] [address] [place] [address] [place] [phone] Joseph Santana III, MD [address] [facility] [phone] [place] [address] Saphenous nerve neuropathy, left (Primary Dx); Peroneal neuropathy at knee, left Social History [...] on file 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 Gender Identity Not on file Sexual Orientation Not on file Occupation Industry Job Start Date Job End Date unemployed Not on file Not on file Not on file documented as of this encounter Progress Notes * Joseph Santana III, MD - 10/23/2019 10:45 AM CDT Plastic Surgery Outpatient Consultation Patient: Marnie Roque : 1965 Date of Service: 10/23/2019 PCP: René Smallwood MD Requesting Provider: Self Referral Insurance Information: Payor: [employer] MEDICARE / Plan: [employer] MCR GOLD REF / Product Type: *No Producttype* / CC: Chronic bilateral knee and leg pain HPI: This unfortunate 54-year-old female has a [...] she ishopeful that I can help her. She underwent bilateral total knee replacement that was complicated by mechanical failure or malpositioning, and required several revisions surgeries. She has had 3 knee replacement surgeries on the right side, and 4 on the left side. Her initial surgeon was at [facility], and then ultimately, Dr. Ba did her final revisions on each side, and achieved good correction of the by mechanical deformity. She does note that she feels she has a slight leg length discrepancy, although it is much better than it was before Dr. Ba operated on her. So after all that, she is stable [...] without assistive devices. As well, the pain. 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 She has 3 daughters [...] about to move out on her own. She currently feels 100% frustrated, and 80-90% [...] in any legal action regarding the pain. She has had a number of epidural steroid injections. Most of these she says were not effective. Oneof them did make her feel somewhat better for 4 days. PMH: Past Medical History: Diagnosis Date ??? Anxiety ??? Arthritis ??? Depression ??? Migraines ??? Obesity PSH: Past Surgical History: Procedure Laterality Date ??? FL UPPER GI AIR CONTRAST W KUB Left 02/26/2019 ??? REVISION TOTAL KNEE ARTHROPLASTY Right 02/18/2018 ??? TOTAL KNEE ARTHROPLASTY Left 05/2014 ??? TOTAL KNEE ARTHROPLASTY Right 08/2015 ??? TUBAL LIGATION ??? WRIST FRACTURE SURGERY Medications: Current Outpatient Medications Medication Sig Dispense Refill ??? diazePAM (VALIUM) 5 mg tablet Take 5 mg by mouth nightly as needed. at bedtime. 5 ??? DULoxetine DR (CYMBALTA) 60 mg capsule Take by mouth daily 3 ??? gabapentin (NEURONTIN) 300 mg capsule TAKE 1 CAPSULE BY MOUTH THREE TIMES A DAY 90 capsule 0 ??? hydrOXYzine (VISTARIL) 25 mg capsule Take 1 capsule (25 mg total) by mouth 3 (three) times a day as needed for anxiety. 60 capsule 1 ??? levothyroxine sodium (TIROSINT) 112 mcg capsule Take 112 mcg by mouth every morning. ??? lidocaine (XYLOCAINE) 5 % ointment ??? meloxicam (MOBIC) 15 mg tablet TAKE 1 TABLET BY MOUTH EVERY DAY 30 tablet 2 ??? oxyCODONE-acetaminophen (PERCOCET) 5-325 mg per tablet Take 1-2 tablets by mouth every 4 (four)hours as needed for pain. 70 tablet 0 ??? salicylic acid 3 % shampoo Apply topically. ??? senna-docusate (PERICOLACE) 8.6-50 mg Take 2 tablets by mouth 2 (two) times a day. May increaseto 4 tablets twice daily if needed. HOLD medication for diarrhea. 80 tablet 1 ??? topiramate (TOPAMAX) 25 mg tablet Take 50 mg by mouth 2 (two) times a day. ??? warfarin (COUMADIN) 2 mg tablet Take 2.5 tablets (total dose = 5 mg) orally daily at 5pm to thin blood for 4 weeks. 75 tablet 1 No current facility-administered medications for this visit. Allergies: No Known Allergies Social History: Social History Tobacco Use ??? Smoking status: Former Smoker Packs/day: 0.50 Start date: 05/27/1992 Last attempt to quit: 05/27/2017 Years since quittin.4 ??? Smokeless tobacco: Never Used Substance Use Topics ??? Alcohol use: Yes Comment: social FamilyHistory: Family History Problem Relation Age of Onset ??? Arthritis Other ??? Mental illness Other Review of Systems A comprehensive review of systems was completed by the patient, recorded in the chart (attached), and reviewed by me. Vitals: Recorded and reviewed in Epic Physical Exam: General: Well-developed, well-nourished female in [...] over the patella. Everything is well healed. She has no visible muscle atrophy of the legs, however, she does have a fairly thick layer of subcutaneous fat, so this would not be easy to appreciate. I performed a comprehensive peripheral nerve examination [...] of saphenous nerve neuroma at the knee There are no dystrophic, vascular, coloration, or dystonic changes that might be suggestive of CRPS. Lab/Radiology/Diagnostic Review: I personally reviewed the results of this patient's electrodiagnostic studies 12/24/2018. They are essentially normal apart from a mildly abnormal left tibial H reflex; there were no obvious findingson the EMG and nerve conduction study to suggest clear nerve injury or radiculopathy. However, it was noted that the findings could be compatible with a mild S1 radiculopathy I also reviewed MRI of the lumbar spine without contrast dated 01/16/19. There is mild straighteningthe lumbar lordosis. There is normal alignment of the lumbar spine with preserved disc spaces. There is no evidence of acute fracture. At the L4-L5 level there is a mild left-sided foraminal disc bulge with very minimal left-sided L4 neural foraminal stenosis. At the L5-S1 level there is a mild left -sided disc bulge with very minimal left-sided L5 neural foraminal stenosis. Assessment: 1. Complex bilateral knee and leg pain following extensive surgeries for total knee arthroplasty and subsequent revisions 2. 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 Mild leg length discrepancy 5. Possible L5-S1 radiculopathy 6. Anxiety and depression Recommendations: I had an extensive discussion with this patient where I told her what I thought was going on, and what I think we may be able to do about it. First, I made it clear that I [...] to steroid injections. Therefore, even if a surgery to relieve compression on the peroneal nerve [...] the left as compared to the right. We talked about the difference between the [...] though clinical exam signs are strongly present). Regarding the saphenous nerve, this clearly gives [...] time, without anyexcisional procedure of the nerve. So, putting an altogether, I am recommending that she have left-sided common peroneal nerve decompression and saphenous nerve decompression in the thigh. I would like to see how she responds to this before planning anything on the right. I made clear to her that I do not treat sciatica or radiculopathy, and that this may still be present after the surgery. For this patient, it will be critical to have pain management involved pre and postoperatively. I would like to send her to the excellent Dr. Adair, for his thoughts. Certainly, if he feels there is a nonsurgical way to manage her, I would be open to that recommendation. Alternatively, if any (e.g.Epidural steroid) injection therapies are indicated that may augment surgical outcome, this would also be helpful period and then ultimately, of course, if nerve decompression surgery is not helpful to her, she may be a candidate for spinal cord or dorsal root ganglion stimulation, which Dr. Adair is an expert in. Overall, it was a pleasure to meet this patient, and I certainly do hope I can help her. I will look forward to seeing her next after her consultation with Dr. Adair. documented in this encounter Plan of Treatment Pending Results Name Type Priority Associated Diagnoses Date/Time Ambulatory referral to Pain Management Outpatient Referral Routine Saphenous nerve neuropathy, left 11/23/2019 11:34 AM CDT Scheduled Referrals Name Type Priority Associated Diagnoses Order Schedule Ambulatory referral to Pain Management Outpatient Referral Routine Saphenous nerve neuropathy, left Expected: 11/06/2019 (Approximate), Expires: 10/22/2020 documented as of this encounter Visit Diagnoses Diagnosis Saphenous nerve neuropathy, left- Primary Peroneal neuropathy at knee, left documented in this encounter Care Teams Cell Tower Climber Relationship Specialty Start Date End Date René Smallwood MD PCP - General Family Medicine 12/02/17 02/10/20 documented as of this encounter
--- OUTSIDE RECORDS SUMMARY | 2024-05-11 17:35 | XMS_ITS | Encounter Summary ---
Author Organization [facility] Address [address] [place] [address] Phone Care Team Providers Care Humidifier Attendant Name Role Phone René Smallwood MD Primary Care Provider [phone] [phone] Encounter Details Date Type Department Care Team (Late st Contact Info) Description 01/30/2019 Orders Only [facility] Orthopaedic Surgery [address] [facility] 6th [place] [address] [place] [address] David Ba MD [address] [place] [address] Back pain, unspecified back location, unspecified back pain laterality, unspecified chronicity Social History Tobacco Use Types Packs/Day Years Used Date Smoking Tobacco: Former Cigarettes 0.5 25 0 05/27/1992 - 05/27/2017 Smokeless Tobacco: Never Alcohol Use Standard Drinks/Week Comments Yes 0 (1 standard drink = 0.6 oz pur e alcohol) social Comments No Sex and Gender Information Value Date Recorded Sex Assigned at Not on file 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 Gender Identity Not on file Sexual Orientation Not on file Occupation Industry Job Start Date Job End Date unemployed Not on file Not on file Not on file documented as of this encounter Plan of Treatment Not on file documented as of this encounter Procedures Procedure Name Priority Date/Time Associated Diagnosis Comments MRI LUMBAR SPINE WO CONTRAST Schedule Routine, Read Routine (OP Routine) 01/30/2019 8:17 AM CDT Back pain, unspecified back location, unspecified back pain laterality, unspecified chronicity documented in this encounter Results * MRI Lumbar Spine WO Contrast (01/30/2019 8:17 AM CDT) Anatomical Region Laterality Modality Spine N/A Magnetic Resonan ce David Ba MD IMG MRI PROCEDURES Final Result documented in this encounter Visit Diagnoses Diagnosis Back pain, unspecified back location, unspecified back pain laterality, unspecified chronicity documented in this encounter Care Teams Humidifier Attendant Relationship Specialty Start Date End Date René Smallwood MD PCP - General Family Medicine 12/02/17 02/10/20 documented as of this encounter
--- OUTSIDE RECORDS SUMMARY | 2024-05-11 17:35 | XMS_ITS | Encounter Summary ---
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 Gender Identity Not on file Sexual Orientation Not on file Occupation Industry Job Start Date Job End Date unemployed Not on file Not on file Not on file documented as of this encounter Last Filed Vital Signs Vital Sign Reading Time Taken Comments Blood Pressure 122/71 12/03/2019 5:08 PM CDT Pulse 76 12/03/2019 5:08 PM CDT Temperature 36 ??C (96.8 ??F) 12/03/2019 4:34 PM CDT Respiratory Rate 20 12/03/2019 5:08 PM CDT Oxygen Saturation 97% 12/03/2019 5:08 PM CDT Inhaled Oxygen Concentration - - Weight 97.7 kg (215 lb 6.2 oz) 12/03/2019 9:32 A M CDT Height 154.9 cm (5' 1 ) 12/03/2019 9:32 AM CDT Body Mass Index 40.7 12/03/2019 9:32 AM CDT documented in this encounter Discharge Diagnoses Diagnosis Lesion of femoral nerve, left lower limb - LESION OF FEMORAL NERVE, LEFT LOWER LIMB Lesion of sciatic nerve, left lower limb - LESION OF SCIATIC NERVE, LEFT LOWER LIMB Unequal limb length (acquired), unspecified site - UNEQUAL LIMB LENGTH (ACQUIRED), UNSPECIFIED SITE Other specified anxiety disorders - OTHER SPECIFIED ANXIETY DISORDERS Hypothyroidism, unspecified - HYPOTHYROIDISM, UNSPECIFIED Obesity, unspecified - OBESITY, UNSPECIFIED Personal history of nicotine dependence - PERSONAL HISTORY OF NICOTINE DEPENDENCE Presence of artificial knee joint, bilateral - PRESENCE OF ARTIFICIAL KNEE JOINT, BILATERAL longterm (current) use of anticoagulants - PATIENT CARE PROVIDER (CURRENT) USE OF ANTICOAGULANTS Long-term (current) use of anticoagulants Body mass index (BMI) 40.0-44.9, adult - BODY MASS INDEX (BMI) 40.0-44.9, ADULT documented in this encounter Discharge Instructions * [...] much that surgery did not work. Call [phone] for an appointment with our office. * Attachments The following attachments cannot be sent through Care Everywhere. * Ibuprofen (By mouth) (Emirati) * Oxycodone/Acetaminophen (By mouth) (Emirati) * General Anesthesia (Discharge Care) (Emirati) * [facility] (Discharge Care) (Emirati) documented in this encounter Medications at Time [...] left side. Her initial surgeon was at [facility], and then ultimately, Dr. 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 She has 3 daughters [...] is Outpatient. Informed Consent: Discussed plan with ELEMENTARY EDUCATOR and attending. Anesthesia plan and risks discussed [...] loose and mobile following decompression. A 19 barbadian carrington drain was placed,and the wound closed [...] that you and your doctor have chosen [facility] for your surgery. We hope that the [...] of water. ?? Use no make-up, nail welsh, lotions, oils or powders on your skin. [...] left lower extremity documented in this encounter Admitting Diagnoses Diagnosis [...] 1015, For 1 dose, Pre-Op, Indications: Pre-Emptive AnalgesiaIndications:Pre-Emptive Analgesia Given 12/03/2019 9:50 AM CDT 975 mg celecoxib (CeleBREX) capsule 200 mg 200 mg, oral, Once, On Nadya 12/03/19 at 1015, For 1 dose, Pre-Op, Hold if history of kidney disease or gastric ulcer., Indications: Pre-Emptive AnalgesiaIndications:Pre-Emptive Analgesia Given 12/03/2019 9:51 AM CDT 200 mg dexAMETHasone (DECADRON) injection solution 10 mg 10 mg, intravenous, Administer over 2 Minutes, Once, On Nadya 12/03/19 at 1015, For 1 dose, Pre-Op Given 12/03/2019 11:40 AM CDT 10 mg gabapentin (NEURONTIN) capsule 300 mg 300 mg, oral, Once, On Nadya 12/03/19 at 1015, For 1 dose, Pre-Op, Indications: Pre-Emptive AnalgesiaIndications:Pre-Emptive Analgesia Given 12/03/2019 9:51 AM CDT 300 [...] Given 12/03/2019 4:46 PM CDT 1 tablet documented in this encounter Discontinued Medications Medication [...] Alicia Stanton RN)1556 (Given - Provider: Alicia Stanton RN) sodium chloride 0.9 % irrigation (CANCELED) As needed, Starting on Nadya 12/03/19 at 1310, Intra-Op 1310 (Given - Provid er: Joseph Bianchi III, MD) documented in this encounter Orders Medications Ordered That Barak ht Not Have Been Administered Count Last Ordered Date First Ordered Date bupivacaine-EPINEPHrine (MAR MARTY with EPI) 0.5 %-1:200,000 preservative free injection 1 12/03/2019 ceFAZolin (ANCEF) 1 gram/10 mL in sterile water (premix) 2,000 mg 1 12/03/2019 naloxone (NARCAN) 0.4 mg/mL injection 0.04-0.4 mg 1 12/03/2019 ondansetron (ZOFRAN) injection 4 mg 1 12/02 sodium chloride 0.9 % irrigation 1 12/03/19 20 sodium chloride 0.9% flush 0.5-20 mL 2 01/2020 documented in this encounter Care Teams Supervisor Telephone Clerks Relationship Specialty Start Date End Date René Smallwood MD PCP - General Family Medicine 12/02/17 02/10/20 documented as of this encounter
--- OUTSIDE RECORDS SUMMARY | 2024-05-11 17:35 | XMS_ITS | Encounter Summary ---
Author Organization [facility] Address [address] [place] [address] Phone Care Team Providers Care Scale Mechanic Name Role Phone Reén Smallwood MD Primary Care Provider [phone] [phone] Encounter Details Date Type Department Care Team (Late st Contact Info) Description 06/11/2018 Telephone [facility] Orthopaedic Surgery [address] [facility] 2nd [address] [place] [address] David Ba MD [address] [place] [address] Social History Tobacco Use Types Packs/Day Years Used Date Smoking Tobacco: Former Cigarettes 0.5 25 0 05/27/1992 - 05/27/2017 Smokeless Tobacco: Never Alcohol Use Standard Drinks/Week Comments Yes 0 (1 standard drink = 0.6 oz pur e alcohol) social Comments No Sex and Gender Information Value Date Recorded Sex Assigned at Not on file 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 Main Entrance/Registration NPO after MN understood: Yes\ Clear liquids until: 8:30 Confirm patient has picked up Rx for Mupirocin: Yes Verify start date/instructions: Yes Confirm patient has picked up Celebrex: No: Verify start date/instructions: No: Confirm patient has Chlorhexidine soap: Yes Verify start date/instructions: Yes Remind patient to shower with special soap on AM of surgery date. Confirm patient understands exactly what medications should be held 1 week prior to surgery: Yes Verify patient understands exactly what medications to take AM of surgery: Yes Verify if patient has CPAP machine & remind them to bring it with them to the hospital: No: Verify patient insurance: Yes Verify patient still has a joint horse riding coach or instructor that will be caring for them AT LEAST 3-5 days/24 hours a day post op: Yes If patient having Posterior NATHANIEL -- verify patient has a raised toilet seat & hip kit: No: Instruct patient to have joint horse riding coach or instructor at the hospital on POD#1 to attend D/C class &/or observe nursing staff/OT/PT sessions: Yes Verify changes in medical status: No: If Yes, comment: Verify clean skin integrity: Yes If No, comment: LCHAIR VAN DRIVER documented in this encounter Plan of Treatment Not on file documented as of this encounter Visit Diagnoses Not on filedocumented in this encounter Care Teams Scale Mechanic Relationship Specialty Start Date End Date René Smallwood MD PCP - General Family Medicine 12/02/17 02/10/20 documented as of this encounter
--- OUTSIDE RECORDS SUMMARY | 2024-05-11 17:35 | XMS_ITS | Encounter Summary ---
Author Organization [facility] Address [address] [place] [address] Phone Care Team Providers Care Province Archivist Name Role Phone René Smallwood MD Primary Care Provider [phone] [phone] Encounter Details Date Type Department Care Team (Late st Contact Info) Description 01/30/2019 Orders Only [facility] Orthopaedic Surgery [address] [facility] 2nd Floor [address] [place] [id number] David Ba MD [address] [place] [address] Back pain, unspecified back location, unspecified back pain laterality, unspecified chronicity (Primary Dx) Social History Tobacco Use Types Packs/Day Years Used Date Smoking Tobacco: Former Cigarettes 0.5 25 0 05/27/1992 - 05/27/2017 Smokeless Tobacco: Never Alcohol Use Standard Drinks/Week Comments Yes 0 (1 standard drink = 0.6 oz pur e alcohol) social Comments No Sex and Gender Information Value Date Recorded Sex Assigned at Not on file 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
--- OUTSIDE RECORDS SUMMARY | 2024-05-11 17:35 | XMS_ITS | Encounter Summary ---
Author Organization [facility] Address [address] [place] [address] Phone Care Team Providers Care Funeral Attendant Name Role Phone René Smallwood MD Primary Care Provider [phone] [phone] Encounter Details Date Type Department Care Team (Late st Contact Info) Description 02/10/2019 Telephone [facility] Orthopaedic Surgery [address] [place] [address] 6th [place] [address] [place] [address] Destiny Wasserman CMA Social History Tobacco Use Types Packs/Day Years Used Date Smoking Tobacco: Former Cigarettes 0.5 25 0 05/27/1992 - 05/27/2017 Smokeless Tobacco: Never Alcohol Use Standard Drinks/Week Comments Yes 0 (1 standard drink = 0.6 oz pur e alcohol) social Comments No Sex and Gender Information Value Date Recorded Sex Assigned at Not on file 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 Roque. She notes that her right leg pain is gone but she is still having significant left leg pain with radicular type pain down the outside of her left leg. Her MRI showed only mild stenosis except for a subarticular area on the the left side of L4/L5 abuting the left L5 nerve root which does correlate with her symptoms. It was discussed that we could try and epidural steroid injection around this area to see if this helps her symptoms. Could someone call her tohelp get this scheduled? She is also noting sharp medial sided knee pain on the left side which shecan be evaluated in clinic for after her MARIAM. Thanks, [facility] ----- Message ----- From: Destiny Wasserman MA Sent: 01/30/2019 3:04 PM To: David Ba MD, Yusra Rodriguez MA, # Subject: Call patient with results Patient daughter is calling and said her mom got a miss call from us but no one left a message. Emile can you call her again, and her daughter Lala [phone], her mom wont be available between [phone]. documented in this encounter Plan of Treatment Not on file documented as of this encounter Visit Diagnoses Not on filedocumented in this encounter Care Teams Funeral Attendant Relationship Specialty Start Date End Date René Smlalwood MD PCP - General Family Medicine 12/02/17 02/10/20 documented as of this encounter
--- OUTSIDE RECORDS SUMMARY | 2024-05-11 17:35 | XMS_ITS | Encounter Summary ---
Author Organization [facility] Address [address] [place] [address] Phone Care Team Providers Care Carton Packaging Machine Operator Name Role Phone René Smallwood MD Primary Care Provider [phone] [phone] Reason for Referral * Diagnostic Imaging (Routine) - Closed Specialty Diagnoses / Procedures Referred By Contac t Referred To Contact Diagnoses Aftercare following right knee joint replacement surgery Procedures XR Knee Right 3 Views David Ba MD Phone: tel: fax: [address] [address] Referral ID Status Reason Start Date Expiration Date Visits Re quested Visits Authorized [id number] Closed 04/10/2018 10/20/2019 1 1 ICE CONTROL CLERK Encounter Details Date Type Department Care Team (Late st Contact Info) Description 04/10/2018 Orders Only [facility] Orthopaedic Surgery [address] [facility] 2nd Floor [address] [place] [address] David Ba MD [address] [place] [address] Aftercare following right knee joint replacement surgery (Primary Dx) Social History Tobacco Use Types Packs/Day Years Used Date Smoking Tobacco: Former Cigarettes 0.5 24 1 2017 Smokeless Tobacco: Never Alcohol Use Standard Drinks/Week Comments Yes 0 (1 standard drink = 0.6 oz pur e alcohol) social Comments No Sex and Gender Information Value Date Recorded Sex Assigned at Not on file Legal Sex Female 11:20 AM INVOICE CONTROL CLERK Gender Identity Not on file Sexual Orientation Not on file Occupation Industry Job Start Date Job End Date unemployed Not on file Not on file Not on file documented as of this encounter Plan of Treatment Not on file documented as of this encounter Results * XR Knee Right 3 Views (04/11/2018 2:28 PM INVOICE CONTROL CLERK) Anatomical Region Laterality Modality Lower Extremities, Knee Right Computed Radiography 04/11/2018 2:29 PM INVOICE CONTROL CLERK Impressions 04/11/2018 2:29 PM INVOICE CONTROL CLERK 1. ??Revision semiconstrained right total knee arthroplasty in near-anatomic position with persistent soft tissue swelling and knee joint effusion. Electronically signed by: Natalie Srivastava M.D. Narrative 04/11/2018 2:29 PM INVOICE CONTROL CLERK EXAMINATION: Right knee 3 views HISTORY: ??Right knee osteoarthritis FINDINGS: 3 views of the right knee are performed with comparison to right knee radiographs on 03/17/2018 and 02/18/2018. There is a revision semiconstrained right total knee arthroplasty in unchanged near-anatomic position. There is mild persistent right knee soft tissue swelling and a small knee joint effusion. No fracture. There is a left total knee arthroplasty with varus alignment of the tibial component, unchanged. Procedure Note Natalie Srivastava MD - 04/11/2018 EXAMINATION: Right knee 3 views HISTORY: Right knee osteoarthritis FINDINGS: 3 views of the right knee are performed with comparison to right knee radiographs on 03/17/2018 and 02/18/2018. There is a revision semiconstrained right total knee arthroplasty in unchanged near-anatomic position. There is mild persistent right knee soft tissue swelling and a small knee joint effusion. No fracture. There is a left total knee arthroplasty with varus alignment of the tibial component, unchanged. IMPRESSION: 1. Revision semiconstrained right total knee arthroplasty in near-anatomic position with persistent soft tissue swelling and knee joint effusion. Electronically signed by: Natalie Srivastava M.D. David Ba MD IMG XR PROCEDURES Final R esult documented in this encounter Visit Diagnoses Diagnosis Aftercare following right knee joint replacement surgery- Primary Aftercare following right knee joint replacement surgery documented in this encounter Care Teams Carton Packaging Machine Operator Relationship Specialty Start Date End Date René Smallwood MD PCP - General Family Medicine 12/02/17 02/10/20 documented as of this encounter
--- OUTSIDE RECORDS SUMMARY | 2024-05-11 17:35 | XMS_ITS | Encounter Summary ---
Author Organization [facility] Address [address] [place] [address] Phone Care Team Providers Care Orchestra Director Name Role Phone René Smallwood MD Primary Care Provider [phone] Encounter Details Date Type Department Care Team (Late st Contact Info) Description 01/06/2019 Telephone [facility] Orthopaedic Surgery [address] [place] [address] 2nd [address] [place] [id number] Emile Glaeano MD [address] [place], [place] [id number] Social History Tobacco Use Types Packs/Day Years Used Date Smoking Tobacco: Former Cigarettes 0.5 25 0 05/27/1992 - 05/27/2017 Smokeless Tobacco: Never Alcohol Use Standard Drinks/Week Comments Yes 0 (1 standard drink = 0.6 oz pur e alcohol) social Comments No Sex and Gender Information Value Date Recorded Sex Assigned at Not on file 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 Roque and discussed her EMG results. Her EMG was essentially normal without any sign of peripheral nerve compression in her left leg. She continues to note bilateral lower extremity pain that radiates from her lower back. Discussed with her that the next step is to get a lumbar spine MRI to further evaluate. She was agreeable. She would like this to be done in [place]. MICHAELLE * Telephone Encounter - Yusra Rodriguez MA - 01/06/2019 2:31 PM CDT ----- Message from Emile Glaeano MD sent at 01/06/2019 2:06 PM CDT ----- Regarding: RE: EMG results I called Ms. Roque and discussed her EMG results. Her EMG was essentially normal without any sign of peripheral nerve compression in her left leg. She continues to note bilateral lower extremity pain that radiates from her lower back. Discussed with her that the next step is to get a lumbar spine MRI to further evaluate. She was agreeable. She would like this to be done in [place]. [facility] ----- Message ----- From: Destiny Wasserman MA Sent: 01/06/2019 8:52 AM To: David Ba MD, Yusra Rodriguez MA, # Subject: FW: EMG results Can you call this patient about her EMG results. ----- Message ----- From: Yusra Rodriguez MA Sent: 12/30/2018 1:24 PM To: Carlie Meng, David Ba MD, # Subject: EMG results Patient completed EMG 12/24/18. Patient states she needs to know what is the next step. Thank you Yusra * Telephone Encounter - Yusra Rodriguez MA - 01/06/2019 2:29 PM CDT ----- Message from Emile Galeano MD sent at 01/06/2019 2:06 PM CDT ----- Regarding: RE: EMG results I called Ms. Roque and discussed her EMG results. Her EMG was essentially normal without any sign of peripheral nerve compression in her left leg. She continues to note bilateral lower extremity pain that radiates from her lower back. Discussed with her that the next step is to get a lumbar spine MRI to further evaluate. She was agreeable. She would like this to be done in [place]. [facility] ----- Message ----- From: Destiny Wasserman MA Sent: 01/06/2019 8:52 AM To: David Ba MD, Yusra Rodriguez MA, # Subject: FW: EMG results Can you call this patient about her EMG results. ----- Message ----- From: Yusra Rodriguez MA Sent: 12/30/2018 1:24 PM To: Carlie Meng, David Ba MD, # Subject: EMG results Patient completed EMG 12/24/18. Patient states she needs to know what is the next step. Thank you Yusra * Telephone Encounter - Destiny Wasserman MA - 01/06/2019 2:27 PM CDT ----- Message from Emile Galeano MD sent at 01/06/2019 2:06 PM CDT ----- Regarding: RE: EMG results I called Ms. Roque and discussed her EMG results. Her EMG was essentially normal without any sign of peripheral nerve compression in her left leg. She continues to note bilateral lower extremity pain that radiates from her lower back. Discussed with her that the next step is to get a lumbar spine MRI to further evaluate. She was agreeable. She would like this to be done in [place]. [facility] ----- Message ----- From: Destiny Wasserman MA Sent: 01/06/2019 8:52 AM To: David Ba MD, Yusra Rodriguez MA, # Subject: FW: EMG results Can you call this patient about her EMG results. ----- Message ----- From: Yusra Rodriguez MA Sent: 12/30/2018 1:24 PM To: Carlie Meng, David Ba MD, # Subject: EMG results Patient completed EMG 12/24/18. Patient states she needs to know what is the next step. Thank you Yusra * Telephone Encounter - Emile Galeano MD - 01/06/2019 2:05 PM CDT ----- Message from Destiny Wasserman MA sent at 01/06/2019 8:52 AM CDT ----- Regarding: FW: EMG results Can you call this patient about her EMG results. ----- Message ----- From: Yusra Rodriguez MA Sent: 12/30/2018 1:24 PM To: David Fletcher MD, # Subject: EMG results Patient completed EMG 12/24/18. Patient states she needs to know what is the next step. Thank you Yusra * Telephone Encounter - Emile Galeano MD - 01/06/2019 2:03 PM CDT ----- Message from Destiny Wasserman MA sent at 01/06/2019 8:52 AM CDT ----- Regarding: FW: EMG results Can you call this patient about her EMG results. ----- Message ----- From: Yusra Rodriguez MA Sent: 12/30/2018 1:24 PM To: David Fletcher MD, # Subject: EMG results Patient completed EMG 12/24/18. Patient states she needs to know what is the next step. Thank you Yusra documented in this encounter Plan of Treatment Not on file documented as of this encounter Visit Diagnoses Not on filedocumented in this encounter Care Teams Orchestra Director Relationship Specialty Start Date End Date René Smallwood MD PCP - General Family Medicine 12/02/17 02/10/20 documented as of this encounter
--- OUTSIDE RECORDS SUMMARY | 2024-05-11 17:35 | XMS_ITS | Encounter Summary ---
Author Organization [facility] Address [address] [place] [address] Phone Care Team Providers Care Central Aisle Cashier Name Role Phone René Smallwood MD Primary Care Provider [phone] Encounter Details Date Type Department Care Team (Latest Contact Info) Description 07/08/2018 Anticoagulation Tele phone Call [facility] Orthopaedic Surgery [address] [place] [address] 1[address] [place] [phone] Madonna Rodgers RN Social History Tobacco Use Types Packs/Day Years Used Date Smoking Tobacco: Former Cigarettes 0.5 25 0 05/27/1992 - 05/27/2017 Smokeless Tobacco: Never Alcohol Use Standard Drinks/Week Comments Yes 0 (1 standard drink = 0.6 oz pur e alcohol) social Comments No Sex and Gender Information Value Date Recorded Sex Assigned at Not on file Legal Sex Female 11:20 AM NIGHT NURSE Gender Identity Not on file Sexual Orientation Not on file Occupation Industry Job Start Date Job End Date unemployed Not on file Not on file Not on file documented as of this encounter Plan of Treatment Not on file documented as of this encounter Procedures Procedure Name Priority Date/Time Associated Diagnosis Comments PROTIME-INR Routine 07/07/2018 documented in this encounter Results * (ABNORMAL) Protime-INR (07/07/2018) INR 1.90(A) 0.9 - 1.1 [facility] Blood specimen (specimen) us Anahy Tejeda LAB BLOOD ORDERABLES Final Resul t [facility] documented in this encounter Visit Diagnoses Not on filedocumented in this encounter Care Teams Central Aisle Cashier Relationship Specialty Start Date End Date René Smallwood MD PCP - General Family Medicine 12/02/17 02/10/20 documented as of this encounter
--- OUTSIDE RECORDS SUMMARY | 2024-05-11 17:35 | XMS_ITS | Encounter Summary ---
Author Organization [facility] Address [address] [place] [address] Care Team Providers Care Director Of Program Management Name Role Phone René Smallwood MD Primary Care Provider [phone] Reason for Referral * Consultation (Routine) - Closed Specialty Diagnoses / Procedures Referred By Contac t Referred To Contact Pain Management Diagnoses Saphenous nerve neuropathy, left Joseph Santana III, MD Phone: tel: [place]: [place] [address] [facility] [address] [place] [address] Phone: tel: fax: Referral ID Status Reason Start Date Expiration Date V isits Requested Visits Authorized [id number] Closed Specialty Services Required 10/23/2019 05/03/2021 1 1 Question Answer Please select the performing region: External Order [[id number]] To provider: OLEGARIO ADAIR [[id number]] # of visits: 1 Comments PLEASE CALL PT CHRISTELLE. DR. SANTANA WILL BE SENDING A NOTE & TEXT DR. ADAIR. PAIN EVAL IN REGARDS TO LEFT LEG SAPHENOUS NEUROPATHY, PERONEAL NEUROPATHY Reason for Visit * Reason Comments Initial Consult Knee Pain Leg Pain * Consultation (Routine) - Closed Specialty Diagnoses / Procedures Referred By Contac t Referred To Contact Pain Management Diagnoses Saphenous nerve neuropathy, left Joseph Santana III, [place] Phone: tel: fax: [place] [address] [facility] [address] [place] [address] Phone: tel: fax: Referral ID Status Reason Start Date Expiration Date V isits Requested Visits Authorized [id number] Closed Specialty Services Required 10/23/2019 05/03/2021 1 1 Encounter Details Date Type Department Care Team (Late st Contact Info) Description 11/23/2019 8:17 AM CDT - 11/23/2019 11:59 PM CDT Hospital Encounter [facility] [address] [place] [address] Joseph Santana III, MD [phone] [place] [address] [place] [address] 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 70 tablet 07/16/2018 0 oxyCODONE-acetami nophen (PERCOCET) 5-325 mg per tabletIndications :Pain Take 1 tablet by mouth every 6 (six) hours as needed for pain 28 tablet 11/23/2019 0 salicylic acid 3 % shampoo Apply [...] 06/20/2018 0 documented as of this encounter Ordered Prescriptions Prescription Sig Dispense Quantity Refills Last Filled Start Date End Date oxyCODONE-acetamin ophen (PERCOCET) 5-325 mg per tabletIndications: Pain Take 1 tablet by mouth every 6 (six) hours as needed for pain 28 tablet 11/23/2019 01/08/2020 documented in this encounter Discharge Disposition Disposition Code Departure Means Destination Discharge to home or self care documented in this encounter Progress Notes * Olegario Adair MD - 11/23/2019 8:30 AM CDT Images from the original note were not included. Patient Name: Marnie Roque : 1965 Today's Date: 11/23/2019 PCP: René Smallwood MD Referring: No ref. provider found Chief Complaint Patient presents with ??? Initial Consult ??? Knee Pain ??? Leg Pain HPI Marnie Roque is a 54 y.o. female seen in consultation today for Dr. Santana. She presents with bilateral knee pain in the setting of numerous knee surgeries bilaterally (L>R). Her pain radiates to the entirety of the bilateral lower extremities. Her pain began in 2014. The pain is described as constant aching and soreness. It rates 10/10 on the numeric pain scale. Provocative factors include standing and ambulating. Alleviating factors include rest. Patient denies any motor weakness or bowel/bladder issues. Therapeutic modalities attempted to date include multiple knee surgeries, such as failed total kneearthroplasty. She will be undergoing bilateral lower extremity nerve transposition by Dr. Santana. She is minimally active at this time due to pain. No Known Allergies Past Medical History: Diagnosis Date ??? Anxiety ??? Arthritis ??? Depression ??? Migraines ??? Obesity Patient Active Problem List Diagnosis ??? Failed total knee arthroplasty (CMS/HCC) ??? Migraine ??? Anxiety ??? 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 Depression ??? Hypothyroidism ??? Saphenous nerve neuropathy, left ??? Peroneal neuropathy at knee, left ??? Complex regional pain syndrome type 1 of both lower extremities ??? Chronic postoperative pain Past Surgical History: Procedure Laterality Date ??? FL UPPER GI AIR CONTRAST W KUB Left 02/26/2019 ??? REVISION TOTAL KNEE ARTHROPLASTY Right 02/18/2018 ??? TOTAL KNEE ARTHROPLASTY Left 05/2014 ??? TOTAL KNEE ARTHROPLASTY Right 08/2015 ??? TUBAL LIGATION ??? WRIST FRACTURE SURGERY Social History Socioeconomic History ??? Marital status: Spouse name: Not on file ??? Number [...] ??? Arthritis Other ??? Mental illness Other HOME MEDICATIONS : diazePAM (VALIUM) [address] (CYMBALTA) 60 mg capsule gabapentin (NEURONTIN) 300 mg capsule hydrOXYzine (VISTARIL) 25 mg capsule levothyroxine sodium (TIROSINT) 112 mcg capsule lidocaine (XYLOCAINE) 5 % ointment meloxicam (MOBIC) 15 mg tablet oxyCODONE-acetaminophen (PERCOCET) 5-325 mg per tablet oxyCODONE-acetaminophen (PERCOCET) 5-325 mg per tablet salicylic acid 3 % shampoo senna-docusate (PERICOLACE) 8.6-50 mg topiramate (TOPAMAX) 25 mg tablet warfarin (COUMADIN) 2 mg tablet Review of Systems Review of [...] reviewed and are negative. Physical Exam Vitals: 11/23/19 0818 BP: 141/91 Pulse: 92 Resp: 20 Temp: 98.3 ??F (36.8 ??C) SpO2: 96% Estimated body mass index is 34.01 kg/m?? as calculated from the following: Height as of 02/20/19: 154.9 cm (5' 1 ). Weight as of 02/20/19: 81.6 kg (180 lb). Physical Exam Vitals signs and nursing [...] cranial nerve deficit. Sensory: No sensory deficit. Psychiatric: Speech: Speech normal. Behavior: Behavior normal. [...] Tobacco counseling not applicable. Review of Data: SOAPP-R and PHQ-9 questionnaires were reviewed with scores of 16 & 15, respectively. Most recent urine toxicology screen was reviewed, along with local prescription drug monitoring program. Assessment Encounter Diagnoses Name Primary? Saphenous nerve neuropathy, left ??? Complex regional pain syndrome type 1 of both lower extremities Yes ??? Peroneal neuropathy at knee, left Plan Katie is here today with persistent pain issues following multiple surgeries on both knees. I reviewed Dr. Santana's extensive notes as well. Katie and I had a long discussion about long-term in heroptions and really where to go from here. Given the extensive amount of surgery that she has had isdifficult to determine long-term functional outcome at this point however it is my recommendation that she proceed with Dr. Santana's recommended surgical intervention. Of course our hope is that thiswill resolve the majority of her discomfort. If not, we did discuss that I think she is a good candidate for DRG stimulation and potentially consideration of peripheral stimulation with the Stimwave platform. That said, we also spoke extensively about continuing to work on some weight loss and exerc ise options to relieve some of the force on the lower extremities though of course this is a long-term consideration. For now she seems to utilize medication exceedingly sparingly in the past I did get her some Percocet tablets 5/325 but she has utilize these exceedingly sparingly and only on bothersome days. For now were going to have her give us a call when she needs to return we are of course available to assist at any time. Goals of Treatment: Treat underlying pathology, improve [...] may be discussed at the next visit. Sound Cutter: Sound Cutter done with Fluency Direct: variances and inaccuracies may occur. Dictations not proofread. Problem list pertinent to today???s visit reviewed, but entire patient problem list not reviewed today. This note is prepared by Marjorie Weiss, acting as a scribe for Emerson Adair MD. I electronically signed this note at 11:20 AM on 11/23/2019. I, Emerson Adair, have personally performed the services described in the documentation , reviewed the documentation as recorded by the scribe in my presence, and it accurately and completely records my words and actions though there are potential variances in recording and pediatric cardiologist. Dictated not proofread. documented in this encounter Plan of Treatment Pending Results Name Type Priority Associated Diagnoses Date/Time Ambulatory referral to Pain Management Outpatient Referral Routine Saphenous nerve neuropathy, left 11/23/2019 11:34 AM CDT Scheduled Referrals Name Type Priority Associated Diagnoses Order Schedule Ambulatory referral to Pain Management Outpatient Referral Routine Saphenous nerve neuropathy, left Once for 1 Occurrences starting 11/23/2019 until 11/23/2019 documented as of this encounter Visit Diagnoses Diagnosis Complex regional pain syndrome type 1 of both lower extremities- Primary Saphenous nerve neuropathy, 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
--- OUTSIDE RECORDS SUMMARY | 2024-05-11 17:35 | XMS_ITS | Encounter Summary ---
Author Organization [facility] Healthcare Address [address] [place] [address] Care Team Providers Care Shade Maker Name Role Phone René Smallwood MD Primary Care Provider [phone] Encounter Details Date Type Department Care Team (Late st Contact Info) Description 06/19/2018 1:39 PM CHEMICAL ETCH OPERATOR Anesthesia Event [facility] Operating Room [address] [place] [address] Minor Bruce MD [address] [place] [address] Annamaria Burk NP [address] [facility] [phone] [place], [place] [id number] Anesthesia Record Procedure Summary Procedure Name Responsible Anesthesiologist Anesthesia Start Time Anesthesia Stop Time REVISION ARTHROPLASTY LEFT TOTAL KNEE (Left: Knee) Minor Bruce MD 06/19/18 1339 06/19/18 1559 Events Date Time Event Comment 06/19/2018 1245 1324 Time out - Regional 1324 Start Supplemental O2 1324 Face Time 1324 Spinal Placed 1331 AN Equip Check 1339 An Start 1343 In Room 1343 An Start Data 1343 Start Supplemental O2 1347 An Induction The patient was reevaluated immediately before moderate or deep sedation use and before anesthesia induction. 1348 Anesthesia Ready 1403 Proc Start 1405 Incision Start 1514 an josselyn now 1552 Proc Fin 1554 an stop data 1555 Out of Room 1559 An Stop 1559 Handoff to RN I completed my handoff [...] Patient disposition at the time of handoff: No value filed. Meds Name Total bupivacaine 0.75 %-dextrose 8.25 % PF 1. 8 mL lidocaine 1 % PF 50 mg propofol 70 mg propofol drip 1,142.67 mg ropivacaine 0.5% PF 50 mL fentaNYL (SUBLIMAZE) preservative free i njection 100 mcg 100 mcg midazolam (VERSED) injection 4 mg 2 mg ondansetron PF 8 mg vancomycin 1500 mg/250 mL in sodium chlo ride 0.9% (premix) 1,500 mg 1,500 mg famotidine PF 20 mg tranexamic acid (CYKLOKAPRON ) 1000 mg in 0.9% sodium chloride 100 mL (simple) 2,000 mg ketorolac (TORADOL) injection 30 mg 30 m g Lactated Ringer's (LR) infusion 1,000 mL * Agents Name O2 * Blood No blood administrations on file. Lines, Drains, and Airways Type Details Placement Removal Peripheral IV Placement Date: 06/19/18; Placement Time: 1200; Catheter Size: 20 G; Orientation: Left; Location: Hand; Site Prep: Chlorhexidine; Insertion Attempts: 1; Patient Tolerance: Tolerated well; Removal Date: 06/20/18; Removal Time: 1040; Removal Reason: Per order 06/19/18 1200 by Rachael Hopkins RN 06/20/18 1040 by Rachael Solitario RN Urethral Catheter Placement Date: 06/19/18; Placement Time: 1332; Inserted by: ed rn; Type: Non-latex, Straight-tip; Size: 16 Fr.; Balloon Size: 10 mL; Removal Date: 06/19/18; Removal Time: 2344 06/19/18 1332 by Dillon Argueta RN 06/19/18 2344 by Aakash Engle RN RETIRED Surgical Site 06/19/18; 1408; Le ft; Knee; 04/28/24 (Retired LDA, Removed/Completed by [facility] with LDA Utility); 1213 (Retired LDA, Removed/Completed by [facility] with LDA Utility) 06/19/18 1408 by Melissa Jorge CRNFA 04/28/24 1213 by Discharge Provider, Automatic documented [...] on file Legal Sex Female 11:20 AM CHEMICAL ETCH OPERATOR Gender Identity Not on file Sexual Orientation Not on file Occupation Industry Job Start Date Job End Date unemployed Not on file Not on file Not on file documented as of this encounter OR Notes * Anesthesia Postprocedure Evaluation - Minor Bruce MD - 06/19/2018 4:57 PM CST Patient: Marnie Roque Procedure Summary Date: 06/19/18 Room / Location: [facility] MA[facility] OPERATING ROOM 03 / [facility] OPERATING ROOM Anesthesia Start: 1339 Anesthesia Stop: 1559 Procedure: REVISION ARTHROPLASTY LEFT TOTAL KNEE (Left Knee) Diagnosis: Mechanical loosening of internal left knee prosthetic joint, initial encounter ([facility]) (Mechanical loosening of internal left knee prosthetic joint, initial encounter ([facility]) [T84.033A]) Surgeon: David Ba MD Responsible Provider: Minor Bruce MD Anesthesia Type: regional for postop pain per surgeon request, PNB - single shot, spinal ASA Status: 2 Anesthesia Type: regional for postop pain per surgeon request, PNB - single shot, spinal Last vitals BP 108/67 Pulse 70 Temp 37.2 ??C (99 ??F) (Temporal) Resp 18 SpO2 98% Anesthesia Post Evaluation Patient location during evaluation: PACU Patient participation: complete - patient participated Level of consciousness: fully awake Pain score: 0 Pain management: adequate Airway patency: adequate and patent Evidence of recall: no Anesthetic complications: no Cardiovascular status: hemodynamically stable and acceptable Respiratory status: acceptable and nasal cannula Hydration status: euvolemic Pt is: normothermic Nausea/Vomiting status: none ICAL ETCH OPERATOR * Anesthesia Procedure Notes - Minor Bruce MD - 06/19/2018 1:26 PM CSTAssociated Order(s): ANESTHESIA PERIPHERAL BLOCK Peripheral Block Patient location during procedure: pre-op holding Start time: 06/19/2018 1:26 PM End time: 06/19/2018 1:26 PM Reason for block: post-op pain management per surgeon request Ultrasound image in chart or stored: yes Block type: single shot Laterality: left Block type: IPACK Procedure prep: Preprocedure checklist: patient identified, procedure contraindications assessed, site marked, procedure consent, surgical consent, IV checked, risks, benefits and alternatives discussed, monitors and equipment checked and timeout performed Patient position: supine Procedure performed while patient: sedate with meaningful contact Monitoring: oximetry Supplemental O2: nasal cannula Prep solution: chlorhexidine/alcohol Skin infiltrated with lidocaine 1%: yes Peripheral nerve block: Technique: ultrasound guided Needle type: insulated and short-bevel Needle gauge: 22 G Needle length: 80 mm Injection assessment: injection made incrementally with constant monitoring, local visualized surrounding nerve on ultrasound, negative aspiration for heme, no paresthesias noted, normal resistance to injection and see flowsheet for medication details Assessment: Block success: full evaluation pending Events: patient tolerated procedure well with no complications ICAL ETCH OPERATOR * Anesthesia Procedure Notes - Minor Bruce MD - 06/19/2018 1:25 PM CSTAssociated Order(s): ANESTHESIA PERIPHERAL BLOCK Peripheral Block Patient location during procedure: pre-op holding Start time: 06/19/2018 1:26 PM End time: 06/19/2018 1:26 PM Reason for block: post-op pain management per surgeon request Ultrasound image in chart or stored: yes Block type: single shot Laterality: left Block type: saphenous nerve block - subsartorial approach Procedure prep: Preprocedure checklist: patient identified, procedure contraindications assessed, site marked, procedure consent, surgical consent, IV checked, risks, benefits and alternatives discussed, monitors and equipment checked and timeout performed Patient position: supine Procedure performed while patient: sedate with meaningful contact Monitoring: oximetry Supplemental O2: nasal cannula Prep solution: chlorhexidine/alcohol Skin infiltrated with lidocaine 1%: yes Peripheral nerve block: Technique: ultrasound guided Needle type: insulated and short-bevel Needle gauge: 22 G Needle length: 80 mm Injection assessment: injection made incrementally with constant monitoring, local visualized surrounding nerve on ultrasound, negative aspiration for heme, no paresthesias noted, normal resistance to injection and see flowsheet for medication details Assessment: Block success: full evaluation pending Events: patient tolerated procedure well with no complications ICAL ETCH OPERATOR * Anesthesia Procedure Notes - Minor Bruce MD - 06/19/2018 1:25 PM CSTAssociated Order(s): ANESTHESIA SPINAL BLOCK Spinal Block Patient location: pre-op holding Start time: 06/19/2018 1:25 PM End time: 06/19/2018 1:25 PM Reason for block: primary anesthetic Procedure prep: Preprocedure checklist: patient identified, procedure contraindications assessed, site marked, procedure consent, surgical consent, IV checked, risks, benefits and alternatives discussed, monitors and equipment checked and timeout performed Patient position: sitting Procedure performed while patient: sedate with meaningful contact Monitoring: oximetry and blood pressure Supplemental O2: nasal cannula Prep solution: chlorhexadine/alcohol PPE: sterile gloves, provider hat/mask and sterile drape Skin infiltrated with lidocaine 1%: yes Spinal: Approach: midline Introducer used: no Location: L3-4 Spinal injection: CSF demonstrated, no aspiration of heme and no paresthesias noted Number of attempts: 1 Spinal Needle: Needle type: Arminda Needle gauge: 24 G Assessment: Events: patient tolerated procedure well with no complications ICAL ETCH OPERATOR * Anesthesia Preprocedure Evaluation - Minor Bruce MD - 05/30/2018 3:14 PM CST [facility] Preoperative Evaluation Record [facility] at [facility] ([facility]) Date: 05/30/18 Anesthesia Evaluation Marnie Roque is a 52 y.o. female With left knee pain Procedure(s): REVISION ARTHROPLASTY LEFT TOTAL KNEE HISTORY HPI Marnie Roque is a 52 y.o. female who is being evaluated prior to undergoing revision arthroplasty total knee-lane right. Past Medical History Information obtained from: patient and chart. Neurological + Psychiatric history - depression and anxiety Pertinent negatives: seizures; CVA/stroke; TIA; CEA; ICA stenosis and carotid artery stent Cardiovascular Pertinent negatives: hypertension ; CAD ; [place] ; CABG ; valve replacement; atrial fibrillation; arrhythmia; pacemaker/ICD; PVD; DVT/PE; negative for CHF; coronary angioplasty and hyperlipidemia Respiratory Pertinent negatives: COPD; asthma; sleep apnea (DANIEL); pulmonary hypertension; no O2 use outside thehospital and non-smoker Hepatic / Heme Pertinent negatives: liver disease; history of anemia; history of thrombocytopenia and history of Mavis positive Gastrointestinal Pertinent negatives: GERD and hiatal hernia Renal / Pertinent negatives: renal disease; dialysis and nephrolithiasis Musculoskeletal/Pain + Chronic pain (knee bilateral) + Osteoarthritis + Headaches - migraine headaches. Pertinent negatives: chronic opioid use and previous treatment for opioid use disorder Endocrine / Other + Thyroid disease (dose increased 2 weeks ago) - hypothyroidism + Obesity (BMI >30) Pertinent negatives: diabetes mellitus; cancer history and rheumatological disease Functional Capacity Functional capacity: 4-6 METs Comments: Light house work. Walking, vacuuming. 3 story house with knee pain. But no cp or [place]. Stationary bike Review of Systems + muscle weakness (bilateral legs) + chronic pain (knee bilateral) + vision loss (corrective lenses) Pertinent negatives: productive cough; wheezing; SOB; recent cold/flu; fever; chest pain; palpitations; orthopnea; pedal edema; PND; heavy menses; previous transfusion; transfusion reaction; melena/hematochezia; easy bruising; bleeding problems; syncope; dizziness; numbness/tingling; hard of hearing; heartburn; nausea; dysphagia; diarrhea; dentures/partials and chipped/loose teeth PAT Summary and Plans Cardiac risk classification of planned procedure: intermediate cardiac risk. Additional comments: Marnie Roque is a 52 y.o. female who is being evaluated prior to undergoing an intermediate cardiac risk surgery. Revised Cardiac Risk Index factors are (none) for a total RCRI of 0 out of 6. Functional capacity is <4 METs (specifically:limited ambulation d/t knee pain ). 4-6 METS, d/t knee pain, denies SOB and CP, No family cardiac history. No further testing required. Obstructive sleep apnea (DANIEL) screening status is STOP-Bang=1 suggesting low risk for DANIEL. Blood bank needs for day of procedure: T/S Pending labs/tests include: CBC, CMP, T&S and Urinalysis flex, Vit d, CRP, ESR. The patient is on aspirin therapy for primary prevention. The patient's perioperative cardiovascular risk is deemed low or is outweighed by bleeding risk. If the surgeon is in agreement with this risk assessment, we would support stopping aspirin prior to the procedure. The patient reports that such a plan is already in place. Please call the CPAP attending ([phone]) with any questions. . Follow up note Labs reviewed and are without significant findings. CPAP chart complete Follow-up completed by: Annamaria Burk NP on 06/02/18 at 7:16 AM Follow up note Received call from blood bank. Pt with unusual antibody and will need 3 additional tubes for [facility] to continue screening process. Orders placed. Pt will be coming week of 06/09 to lab for repeat T/S sampling. Follow-up completed by: Annamaria Burk NP on 06/03/18 at 11:20 AM Follow up note Warm auto-antibody identified. Per Yusra in blood bank, blood does not need to come from [facility] but does need to be a full crossmatch. Discussed with CPAP attending. T&C 2 u PRBCs ordered for DOS.CPAP complete. Follow-up completed by: Ginette Barnett NP on 06/11/18 at 1:40 PM Discussed with: Miki Patiño MD Patient Active Problem List Diagnosis ??? Failed total knee arthroplasty (CMS/HCC) ??? Migraine ??? Anxiety ??? 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 Anxiety ??? Arthritis ??? Depression ??? Migraines ??? Obesity Past Surgical History: Procedure Laterality Date ??? REVISION TOTAL KNEE ARTHROPLASTY Right 02/18/2018 ??? TOTAL KNEE ARTHROPLASTY Left 05/2014 ??? TOTAL KNEE ARTHROPLASTY Right 08/2015 ??? TUBAL LIGATION ??? WRIST FRACTURE SURGERY OB History No data available No Known Allergies HOME MEDICATIONS : aspirin 325 mg EC tablet diazePAM (VALIUM) 5 mg tablet hydrOXYzine (VISTARIL) 25 mg capsule ketorolac (TORADOL) 10 mg tablet levothyroxine (SYNTHROID, LEVOTHROID) 100 mcg tablet meloxicam (MOBIC) 15 mg tablet oxyCODONE-acetaminophen (PERCOCET) 5-325 mg per tablet polyethylene glycol (MIRALAX) 17 gram packet senna-docusate (PERICOLACE) 8.6-50 mg topiramate (TOPAMAX) 25 mg tablet Current Outpatient Prescriptions: ??? aspirin 325 mg EC tablet ??? diazePAM (VALIUM) 5 mg tablet ??? hydrOXYzine (VISTARIL) 25 mg capsule ??? ketorolac (TORADOL) 10 mg tablet ??? levothyroxine (SYNTHROID, LEVOTHROID) 100 mcg tablet ??? meloxicam (MOBIC) 15 mg tablet ??? oxyCODONE-acetaminophen (PERCOCET) 5-325 mg per tablet ??? polyethylene glycol (MIRALAX) 17 gram packet ??? senna-docusate (PERICOLACE) 8.6-50 mg ??? topiramate (TOPAMAX) 25 mg tablet Social History Smoking Status ??? Former Smoker ??? Packs/day: 0.50 ??? Start date: 1993 ??? Quit date: 2017 Smokeless Tobacco ??? Never Used Alcohol Use ??? Yes Comment: social Drug Use No Family History Problem Relation Age of Onset ??? Arthritis Other ??? Mental illness Other PAT Physical Exam Airway Exam: Mallampati: II Cervical ROM: FROM Cardiovascular Exam: Rate: regular Pulmonary Exam: LCTA negative EENT Exam: trachea midline Dental Exam: Appears intact Skin Exam: Skin is warm. Capillary refill is < 3 seconds. Abdominal exam: Abdomen is soft. Current state: Patient's current state is cooperative. There were no vitals filed for this visit. PT: No results found for requested labs within last 720 hours. INR: No results found for requested labs within last 720 hours. APTT: No results found for requested labs within last 720 hours. Hgb A1C: No results found for requested labs within last 720 hours. CBC RBC: No results found for requested labs within last 720 hours. RDW: No results found for requested labs within last 720 hours. MCHC: No results found for requested labs within last 720 hours. MCH: No results found for requested labs within last 720 hours. MCV: No results found for requested labs within last 720 hours. Hct: No results found for requested labs within last 720 hours. Hgb: No results found for requested labs within last 720 hours. WBC: No results found for requested labs within last 720 hours. MPV: No results found for requested labs within last 720 hours. Platelets: No results found for requested labs within last 720 hours. RDW CV: No results found for requested labs within last 720 hours. RDW Sd: No results found for requested labs within last 720 hours. BMP Glucose: No results found for requested labs within last 720 hours. Calcium: No results found for requested labs within last 720 hours. Sodium: No results found for requested labs within last 720 hours. Potassium: No results found for requested labs within last 720 hours. CO2: No results found for requested labs within last 720 hours. Chloride: No results found for requested labs within last 720 hours. BUN: No results found for requested labs within last 720 hours. Creatinine: No results found for requested labs within last 720 hours. DOS Physical Exam Medical history, medications, and allergies reviewed. Attestation: I endorse the findings of the anesthesia pre-evaluation assessment dated: 06/19/2018. Airway Exam: Mallampati: II Cervical ROM: FROM Cardiovascular Exam: Rate: regular Rhythm: regular Pulmonary Exam: LCTA, bilat Anesthesia Plan ASA 2 My patient is approved for the Anesthesia Controlled Medication protocol when under care of a FINANCIAL REPORTING SPECIALIST Planned anesthesia: Regional for postop pain per surgeon request, PNB - single shot, spinal and regional as primary anesthetic Lower extremity: IPACK and saphenous nerve block - subsartorial approach Informed Consent: Anesthesia plan and risks discussed with patient. Consent and Attending signature: I and/or my designee have discussed the anesthesia plan, benefits, possible alternatives, parental presence at time of induction (if indicated), and clinically relevant risks that may include dental injury, unintentional awareness, and/or other complications. The patient and/or parent/legal guardian understand, and agree to proceed. All questions answered. ICAL ETCH OPERATOR ICAL ETCH OPERATOR ICAL ETCH OPERATOR ICAL ETCH OPERATOR ICAL ETCH OPERATOR ICAL ETCH OPERATOR documented in this encounter Plan of Treatment Not on file documented as of this encounter Procedures Procedure Name Priority Date/Time Associated Diagnosis Comments MT AN PROCEDURE PLACEHOLDER Routine 06/19/2018 1:26 PM CHEMICAL ETCH OPERATOR Procedure Note - Minor Bruce MD - 06/19/2018 1:26 PM CSTThis note is in progress. Peripheral Block Patient location during procedure: pre-op holding Start time: 06/19/2018 1:26 PM End time: 06/19/2018 1:26 PM Reason for block: post-op pain management per surgeon request Ultrasound image in chart or stored: yes Block type: single shot Laterality: left Block type: IPACK Procedure prep: Preprocedure checklist: patient identified, procedure contraindicationsassessed, site marked, procedure consent, surgical consent, IV checked,risks, benefits and alternatives discussed, monitors and equipment checkedand timeout performed Patient position: supine Procedure performed while patient: sedate with meaningful contact Monitoring: oximetry Supplemental O2: nasal cannula Prep solution: chlorhexidine/alcohol Skin infiltrated with lidocaine 1%: yes Peripheral nerve block: Technique: ultrasound guided Needle type: insulated and short-bevel Needle gauge: 22 G Needle length: 80 mm Injection assessment: injection made incrementally with constantmonitoring, local visualized surrounding nerve on ultrasound, negativeaspiration for heme, no paresthesias noted, normal resistance to injectionand see flowsheet for medication details Assessment: Block success: full evaluation pending Events: patient tolerated procedure well with no complications MT AN PROCEDURE PLACEHOLDER Routine 06/19/2018 1:25 PM CHEMICAL ETCH OPERATOR Procedure Note - Minor Bruce MD - 06/19/2018 1:25 PM CSTThis note is in progress. Peripheral Block Patient location during procedure: pre-op holding Start time: 06/19/2018 1:26 PM End time: 06/19/2018 1:26 PM Reason for block: post-op pain management per surgeon request Ultrasound image in chart or stored: yes Block type: single shot Laterality: left Block type: saphenous nerve block - subsartorial approach Procedure prep: Preprocedure checklist: patient identified, procedure contraindicationsassessed, site marked, procedure consent, surgical consent, IV checked,risks, benefits and alternatives discussed, monitors and equipment checkedand timeout performed Patient position: supine Procedure performed while patient: sedate with meaningful contact Monitoring: oximetry Supplemental O2: nasal cannula Prep solution: chlorhexidine/alcohol Skin infiltrated with lidocaine 1%: yes Peripheral nerve block: Technique: ultrasound guided Needle type: insulated and short-bevel Needle gauge: 22 G Needle length: 80 mm Injection assessment: injection made incrementally with constantmonitoring, local visualized surrounding nerve on ultrasound, negativeaspiration for heme, no paresthesias noted, normal resistance to injectionand see flowsheet for medication details Assessment: Block success: full evaluation pending Events: patient tolerated procedure well with no complications MT AN PROCEDURE PLACEHOLDER Routine 06/19/2018 1:25 PM CHEMICAL ETCH OPERATOR Procedure Note - Platin, Minor Haynes MD - 06/19/2018 1:25 PM CSTThis note is in progress. Spinal Block Patient location: pre-op holding Start time: 06/19/2018 1:25 PM End time: 06/19/2018 1:25 PM Reason for block: primary anesthetic Procedure prep: Preprocedure checklist: patient identified, procedure contraindicationsassessed, site marked, procedure consent, surgical consent, IV checked,risks, benefits and alternatives discussed, monitors and equipment checkedand timeout performed Patient position: sitting Procedure performed while patient: sedate with meaningful contact Monitoring: oximetry and blood pressure Supplemental O2: nasal cannula Prep solution: chlorhexadine/alcohol PPE: sterile gloves, provider hat/mask and sterile drape Skin infiltrated with lidocaine 1%: yes Spinal: Approach: midline Introducer used: no Location: L3-4 Spinal injection: CSF demonstrated, no aspiration of heme and noparesthesias noted Number of attempts: 1 Spinal Needle: Needle type: Arminda Needle gauge: 24 G Assessment: Events: patient tolerated procedure well with no complications documented in this encounter Visit Diagnoses Not on filedocumented in this encounter Administered Medications Inactive Administered Medications - up to 3 most recent administrations Medication Order MAR Action Action Date Dose Rate Site bupivacaine 0.75% (MARCAINE SPINAL) preservative free injection in dextrose intrathecal, As needed, Starting on Nadya 06/19/18 at 1324, Anesthesia Intra-op, Indications: Spinal AnesthesiaIndications:Spinal Anesthesia Given 06/19/2018 1:24 PM CHEMICAL ETCH OPERATOR 1.8 mL famotidine (PEPCID) injection Administer over 2 Minutes, As needed, heartburn, Starting on Nadya 06/19/18 at 1339, Anesthesia Intra-op Given 06/19/2018 1:39 PM CHEMICAL ETCH OPERATOR 20 mg fentaNYL (SUBLIMAZE) preservative free injection 100 mcg 100 mcg, intravenous, Once, On Nadya 06/19/18 at 1200, For 1 dose, Pre-Op, Have ready for block., Indications: Pre-Emptive AnalgesiaIndications:Pre-Emptive Analgesia Given 06/19/2018 1:24 PM CHEMICAL ETCH OPERATOR 100 mcg ketorolac (TORADOL) injection 30 mg 30 mg, intravenous, Once, On Nadya 06/19/18 at 1200, For 1 dose, Intra-Op, INTRA-OP Give at time of skin closure, Indications: Postoperative Pain ManagementIndications:Postoperati ve Pain Management Given 06/19/2018 3:49 PM CHEMICAL ETCH OPERATOR 30 mg Lactated Ringer's (LR) infusion 30 mL/hr, intravenous, Continuous, Starting on Nadya 06/19/18 at 1200, Pre-Op New Bag 06/19/2018 2:50 PM CHEMICAL ETCH OPERATOR New Bag 06/19/2018 1:22 PM CHEMICAL ETCH OPERATOR 30 mL/hr 30 mL/hr lidocaine PF (XYLOCAINE) 10 mg/mL (1 %) preservative free injection infiltration, As needed, Starting on Nadya 06/19/18 at 1347, Anesthesia Intra-op Given 06/19/2018 1:47 PM CHEMICAL ETCH OPERATOR 50 mg midazolam (VERSED) injection 4 mg 4 mg, intravenous, Once, On Nadya 06/19/18 at 1200, For 1 dose, Pre-Op, Have ready for block., Indications: Preoperative Anxiety, Conscious SedationIndications:Preoperative Anxiety,Conscious Sedation Given 06/19/2018 1:24 PM CHEMICAL ETCH OPERATOR 2 mg ondansetron (ZOFRAN) injection intravenous, Administer over 2 Minutes, As needed, nausea, vomiting, Starting on Nadya 06/19/18 at 1339, Anesthesia Intra-op Given 06/19/2018 3:48 PM CHEMICAL ETCH OPERATOR 4 mg Given 06/19/2018 1:39 PM CHEMICAL ETCH OPERATOR 4 mg propofol (DIPRIVAN) IV intravenous, Continuous PRN, Starting on Nadya 06/19/18 at 1347, Anesthesia Intra-op New Bag 06/19/2018 1:47 PM CHEMICAL ETCH OPERATOR 100 mcg/kg/min 55.74 mL/hr propofol (DIPRIVAN) IV As needed, Starting on Nadya 06/19/18 at 1630, Anesthesia Intra-op Given 06/19/2018 4:30 PM CHEMICAL ETCH OPERATOR 70 mg ropivacaine (NAROPIN) 5 mg/mL (0.5 %) preservative free injection As needed, Starting on Nadya 06/19/18 at 1324, Anesthesia Intra-op Given 06/19/2018 1:24 PM CHEMICAL ETCH OPERATOR 50 mL tranexamic acid (CYKLOKAPRON) 1000 mg in 0.9% sodium chloride 100 mL (simple) 1,000 mg, intravenous, at 400 mL/hr, Administer over 15 Minutes, Once, On Nadya 06/19/18 at 1200, For 1 dose, Intra-Op, INTRA-OP Infuse over 10 minutes prior to skin incision, Indications: Reduction of Perioperative Blood LossIndications:Reduction of Perioperative Blood Loss Given 06/19/2018 3:14 PM CHEMICAL ETCH OPERATOR 1,000 mg Given 06/19/2018 1:39 PM CHEMICAL ETCH OPERATOR 1,000 mg vancomycin 1500 mg/250 mL in sodium chloride 0.9% (premix) 1,500 mg 1,500 mg, intravenous, Administer over 90 Minutes, Once, On Nadya 06/19/18 at 1200, For 1 dose, Pre-Op, Administer within 120 minutes of incision., Indications: Prophylaxis, SurgicalIndications:Prophylaxis, Surgical Given 06/19/2018 1:39 PM CHEMICAL ETCH OPERATOR 1,500 mg documented in this encounter Orders Procedures Count Last Ordered Date First Orde red Date ANESTHESIA PERIPHERAL BLOCK 2 06/19/2018 ANESTHESIA SPINAL BLOCK 1 06/19/2018 documented in this encounter Care Teams Shade Maker Relationship Specialty Start Date End Date René Smallwood MD PCP - General Family Medicine 12/02/17 02/10/20 documented as of this encounter
--- OUTSIDE RECORDS SUMMARY | 2024-05-11 17:35 | XMS_ITS | Encounter Summary ---
Author Organization [facility] Address [address] [place] [address] Phone Care Team Providers Care Thread Winder Name Role Phone René Smallwood MD Primary Care Provider [phone] Reason for Referral * Diagnostic Imaging (Routine) - Closed Specialty Diagnoses / Procedures Referred By Liz falcon Referred To Contact Diagnoses S/P revision of total knee, right Procedures XR Knee Right 3 Views David Ba MD Phone: tel: fax: [facility] [address] Referral ID Status Reason Start Date Expiration Date Visits Re quested Visits Authorized [id number] Closed 02/27/2018 09/08/2019 1 1 Reason for Visit * Reason Comments Post-op * Orthopedic (Routine) - Closed Specialty Diagnoses / Procedures Referred By Liz falcon Referred To Contact Orthopedic Surgery Diagnoses bilat knee Procedures RETURN David Ba MD Phone: tel: fax: David Ba MD [address] [place] [address] Phone: tel: fax: Referral ID Status Reason Start Date Expiration Date Visits Re quested Visits Authorized [id number] Closed 12/02/2017 12/02/2018 12 12 Encounter Details Date Type Department Care Team (Late st Contact Info) Description 03/17/2018 9:40 AM CDT Office Visit [facility] Orthopaedic Surgery [address] [place] [address] David Ba MD [address] [place] [address] S/P revision of total knee, right (Primary Dx) Social History Tobacco Use Types Packs/Day Years Used Date Smoking Tobacco: Former Cigarettes 0.5 24 1 2017 Smokeless Tobacco: Never Alcohol Use Standard Drinks/Week Comments Yes 0 (1 standard drink = 0.6 oz pur e alcohol) social Comments No Sex and Gender Information Value Date Recorded Sex Assigned at Not on file Legal 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 70 tablet 03/17/2018 8 documented in this encounter Progress Notes * Lobito Kohler MD - 03/17/2018 12:00 AM CDT ESTABLISHED PATIENT VISIT INTERIM HISTORY: Ms. Roque presents for first postoperative visit status post revision right total knee replacement on 02/18/2018 for component loosening. Overall, she is doing well. She still does report some pain and states she has only been out of the house one time besides today. She is progressing well with therapy. She has no concerns. PHYSICAL EXAMINATION: General: Pleasant female, who presents today with her . Musculoskeletal: Her surgical incision is well healed with no issues. Her range of motion is from 3to 120 degrees of flexion. She has no instability. Her leg is in neutral alignment. She has a mild effusion. The pulses are intact distally. She has no dependent edema. She is neurologically intact distally. She does however have quite poor quadriceps function. She is unable to straight leg raise on the operative side, but she is able to hold the leg. She is able to hold the knee extended againstgravity. There is no concern for extensor mechanism disruption at this time. REVIEW OF X-RAY/STUDIES: Review of the right knee reveals a revision right total knee replacement with no issues. IMPRESSION/DIAGNOSIS: This is a 52-year-old female who is progressing along well 4 weeks status post revision right totalknee replacement. She does however have quite weak quadriceps function on the right side. TREATMENT PLAN: She should continue aggressive physical therapy for quadriceps strengthening. She is provided with a refill of her Percocet prescription. We will plan for revision left total knee replacement in May. However, the patient must show improved quadriceps function on the right side prior to proceeding with surgery. We will see her back in clinic in 4 to 6 weeks to evaluate her quadriceps function.If it has improved, we will proceed with her left side revision for component loosening. Dictated by: Lobito Kohler M.D. ATTENDING ADDENDUM The patient's history and physical examination have been dictated by Dr. Lobito Kohler. I have independently performed a history and physical examination, and I agree with the findings. ELECTRONICALLY SIGNED - 03/18/2018 08:33 AM David Ba MD [employer] Joint Preservation, Resurfacing and Replacement Service [facility] Orthopedics MARIELOS/TAL/sl cc: RENÉ SMALLWOOD MD documented in this encounter Plan of Treatment Not on file documented as of this encounter Results * XR Knee Right 3 Views (03/17/2018 10:12 AM CDT) Anatomical Region Laterality Modality Lower Extremities, Knee Right Computed Radiography 03/17/2018 10:2 0 AM CDT Impressions 03/17/2018 10:20 AM CDT 1. Revision right total knee arthroplasty in near-anatomic position. Electronically signed by: Leon Carlton M.D. Narrative 03/17/2018 10:20 AM CDT EXAMINATION: Right knee 3 views HISTORY: Right knee osteoarthritis FINDINGS: 3 view examination of the right knee is compared with a study dated 02/18/2018. Revision, constrained right total knee arthroplasty remains in near-anatomic position. Soft tissue gas has resolved. There is a small right knee effusion but no fracture or component migration. Left total knee arthroplasty is also present. Procedure Note Leon Carlton MD - 03/17/2018 EXAMINATION: Right knee 3 views HISTORY: Right knee osteoarthritis FINDINGS: 3 view examination of the right knee is compared with a study dated 02/18/2018. Revision, constrained right total knee arthroplasty remains in near-anatomic position. Soft tissue gas has resolved. There is a small right knee effusion but no fracture or component migration. Left total knee arthroplasty is also present. IMPRESSION: 1. Revision right total knee arthroplasty in near-anatomic position. Electronically signed by: Leon Carlton M.D. David Ba MD IMG XR PROCEDURES Final R esult documented in this encounter Visit Diagnoses Diagnosis S/P revision of total knee, right- Primary S/P revision of total knee, right documented in this encounter Discontinued Medications Medication Sig Discontinue Reason Start Date End Da te oxyCODONE-acetaminophen (PERCOCET) 5-325 mg per tabletIndications:Pain Take 1-2 tablets by mouth every 4 (four) hours as needed for pain. Reorder 02/18/2018 03/17/2018 documented as of this encounter Care Teams Thread Winder Relationship Specialty Start Date End Date René Smallwood MD PCP - General Family Medicine 12/02/17 02/10/20 documented as of this encounter
--- OUTSIDE RECORDS SUMMARY | 2024-05-11 17:35 | XMS_ITS | Encounter Summary ---
Author Organization [facility] Address [address] [place] [address] Phone Care Team Providers Care Linux Systems Analyst Name Role Phone René Smallwood MD Primary Care Provider [phone] Encounter Details Date Type Department Care Team (Late st Contact Info) Description 01/30/2019 Orders Only [facility] Orthopaedic Surgery [address] [facility] [address] [place] [address] [place] [address] David Ba MD [address] [place] [address] Pain in thoracic spine (Primary Dx) Social History Tobacco Use Types Packs/Day Years Used Date Smoking Tobacco: Former Cigarettes 0.5 25 0 05/27/1992 - 05/27/2017 Smokeless Tobacco: Never Alcohol Use Standard Drinks/Week Comments Yes 0 (1 standard drink = 0.6 oz pur e alcohol) social Comments No Sex and Gender Information Value Date Recorded Sex Assigned at Not on file 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
--- OUTSIDE RECORDS SUMMARY | 2024-05-11 17:35 | XMS_ITS | Encounter Summary ---
Author Organization [facility] Healthcare Address [address] [place] [address] Care Team Providers Care Boat Hop Name Role Phone René Smallwood MD Primary Care Provider [phone] Encounter Details Date Type Department Care Team (Latest Contact Info) Description 06/19/2018 10:37 AM NATIONAL DEDICATED TRUCK DRIVER - 06/20/2018 10:45 AM NATIONAL DEDICATED TRUCK DRIVER Hospital Encounter [facility] [address] [place] [address] David Ba MD [address] [place] [address] Mechanical loosening of internal left knee prosthetic joint, initial encounter (CMS/[facility]) (Primary Dx); Encounter for preadmission testing; Anticoagulation monitoring, special range; Aftercare following knee joint replacement surgery, unspecified laterality Discharge Disposition: Discharge to home or self [...] on file Legal Sex Female 11:20 AM NATIONAL DEDICATED TRUCK DRIVER Gender Identity Not on file Sexual Orientation Not on file Occupation Industry Job Start Date Job End Date unemployed Not on file Not on file Not on file documented as of this encounter Last Filed Vital Signs Vital Sign Reading Time Taken Comments Blood Pressure 119/44 06/20/2018 8:20 AM NATIONAL DEDICATED TRUCK DRIVER Pulse 82 06/20/2018 8:20 AM NATIONAL DEDICATED TRUCK DRIVER Temperature 37.2 ??C (99 ??F) 06/20/2018 8:20 AM NATIONAL DEDICATED TRUCK DRIVER Respiratory Rate 16 06/20/2018 8:20 AM NATIONAL DEDICATED TRUCK DRIVER Oxygen Saturation 98% 06/20/2018 8:20 AM NATIONAL DEDICATED TRUCK DRIVER Inhaled Oxygen Concentration - - Weight 81.6 kg (180 lb) 06/19/2018 11:20 AM NATIONAL DEDICATED TRUCK DRIVER Height 154.9 cm (5' 1 ) 06/19/2018 11:20 AM NATIONAL DEDICATED TRUCK DRIVER Body Mass Index 34.01 06/19/2018 11:20 AM NATIONAL DEDICATED TRUCK DRIVER documented in this encounter Discharge Summaries * Kaci Thomas, BLADE ALIGNER - 06/20/2018 7:58 AM CST Inpatient Discharge Summary Admitting Provider: David Ba MD Discharge Provider: David Ba MD Primary Care Physician at Discharge: René Smallwood MD [phone] Admission Date: 06/19/2018 Discharge Date: 06/20/2018 Primary Discharge Diagnosis: Mechanical loosening of internal left knee prosthetic joint (CMS/HCC) Secondary Discharge Diagnosis: Mechanical loosening of internal left knee prosthetic joint (CMS/HCC) Migraine Anxiety Depression Hypothyroidism * No resolved hospital problems. * DETAILS OF HOSPITAL STAY Date of Admission: 06/19/2018 Date of Discharge: 06/20/2018 Procedure Performed: Left Revision Total Knee Arthroplasty Chief Complaint: Left knee pain History of Present Illness: The patient is a 52 y.o. year old female cared for by Dr. David Ba. The risks, benefits, alternatives and complications of a left revision total knee arthroplasty was discussed with the patient atlength prior to surgery. The patient elected to proceed with a surgical intervention given the significant influence on their quality of life. Informed consent was obtained prior to surgery. Physical Exam: On the day of discharge, the patient was afebrile with stable vital signs. Examination of the left lower extremity revealed the patient was neurovascularly intact. Incision was clean, dry and intact.Pain was adequately maintained on oral opiates. Hospital Course: The patient was admitted on 06/19/2018 and underwent a left revision total knee arthroplasty. The patient tolerated the procedure well and was taken in stable condition to the postoperative recovery room then transferred to the orthopedic floor in stable condition. The patient progressed well and was able to be weaned off IV opiates. The patient participated with physical and occupational therapy and was deemed stable for discharge. She was maintained on Coumadin for deep venous thrombosis prophylaxis. Pain was adequately maintained on oral opiates. The patient was discharged in stable condition to home with home health care on06/20/2018. Discharge Medications: Marnie Roque Home Medication Instructions HANNY:[id number] Printed on:06/20/18 0758 Medication Information diazePAM (VALIUM) 5 mg tablet Take 5 mg by mouth nightly as needed. at bedtime. hydrOXYzine (VISTARIL) 25 mg capsule Take 1 capsule (25 mg total) by mouth 3 (three) times a day as needed for anxiety. levothyroxine sodium (TIROSINT) 112 mcg capsule Take 112 mcg by mouth every morning. oxyCODONE-acetaminophen (PERCOCET) 5-325 mg per tablet Take 1-2 tablets by mouth every 4 (four) hours as needed for pain. oxyCODONE-acetaminophen (PERCOCET) 5-325 mg per tablet Take 1-2 tablets by mouth every 4 (four) hours as needed for pain. salicylic acid 3 % shampoo Apply topically. senna-docusate (PERICOLACE) 8.6-50 mg Take 2 tablets by mouth 2 (two) times a day. May increase to 4 tablets twice daily if needed. HOLD medication for diarrhea. topiramate (TOPAMAX) 25 mg tablet Take 50 mg by mouth 2 (two) times a day. warfarin (COUMADIN) 2 mg tablet Take 2.5 tablets (total dose = 5 mg) orally daily at 5pm to thin blood for 4 weeks. Discharge Activity: 1. Weight bearing: Weight bearing as tolerated left lower extremity 2. Assistive Devices: Walker or crutches for all walking 3. DVT prophylaxis: Coumadin for 30 days Discharge Diet: Resume previous diet Follow-up: Dr. David Ba on 07/16/18 at 1:00PM at 969: [facility], [address] [place] [address], [place] [id number]. Condition on Discharge: Stable Cosigned by David Ba MD at 06/20/2018 6:14 PM NATIONAL DEDICATED TRUCK DRIVER ONAL DEDICATED TRUCK DRIVER ONAL DEDICATED TRUCK DRIVER documented in this encounter Discharge Instructions * Discharge Instructions* Kaci Thomas NP - 06/20/2018 7:58 AM NATIONAL DEDICATED TRUCK DRIVER Stop taking Mobic, Aspirin and using essential oils for 30 days while you are on Coumadin. ONAL DEDICATED TRUCK DRIVER * Discharge Instr - Other Orders* Va Daniel RN - 06/20/2018 8:45 AM NATIONAL DEDICATED TRUCK DRIVER Patient will dc home with [facility] RN/PT. Please call [phone] with questions. ONAL DEDICATED TRUCK DRIVER documented in this encounter Medications at Time of Discharge diazePAM (VALIUM) 5 mg tabletIndications :anxiety Take 5 mg by mouth nightly as needed at bedtime. 5 12/16/2017 3 hydrOXYzine (VISTARIL) 25 mg capsuleIndication s:anxiety Take 1 capsule (25 mg total) by mouth 3 (three) times a day as needed for anxiety. 60 capsule 1 06/20/2018 0 levothyroxine sodium (TIROSINT) 112 mcg capsuleIndication s:hypothyroidism Take 1 capsule (112 mcg total) by mouth every morning 12/30/2017 3 oxyCODONE-acetami nophen (PERCOCET) 5-325 mg per tabletIndications :Pain Take 1-2 tablets by mouth every 4 (four) hours as needed for pain. 70 tablet 06/20/2018 9 oxyCODONE-acetami nophen (PERCOCET) 5-325 mg per tabletIndications :Pain Take 1-2 tablets by mouth every 4 (four) hours as needed for pain. 70 tablet 06/25/2018 9 salicylic acid 3 % shampoo Apply topically. [...] Refills Last Filled Start Date End Date hydrOXYzine (VISTARIL) 25 mg capsuleIndications :anxiety Take 1 capsule (25 mg total) by mouth 3 (three) times a day as needed for anxiety. 60 capsule 1 06/20/2018 0 warfarin (COUMADIN) 2 mg tabletIndications: VTE Prophylaxis Following Ortho Surgery Take 2.5 tablets (total dose = 5 mg) orally daily at 5pm to thin blood for 4 weeks. 75 tablet 1 06/20/2018 0 senna-docusate (PERICOLACE) 8.6-50 mgIndications:cons tipation Take 2 tablets by mouth 2 (two) times a day. May increase to 4 tablets twice daily if needed. HOLD medication for diarrhea. 80 tablet 1 06/20/2018 0 oxyCODONE-acetamin ophen (PERCOCET) 5-325 mg per tabletIndications: Pain Take 1-2 tablets by mouth every 4 (four) hours as needed for pain. 70 tablet 06/25/2018 9 oxyCODONE-acetamin ophen (PERCOCET) 5-325 mg per tabletIndications: Pain Take 1-2 tablets by mouth every 4 (four) hours as needed for pain. 70 tablet 06/20/2018 9 documented in this encounter Discharge Disposition Disposition Code Departure Means Destination Discharge to home or self care documented in this encounter H&P Notes * David Ba MD - 06/19/2018 12:56 PM CST I have reviewed the H&P, examined the patient, and endorse the findings as written. Plan of Care : Based on the above findings, I consider Marnie Roque to be an acceptable risk for : Procedure(s): REVISION ARTHROPLASTY LEFT TOTAL KNEE ONAL DEDICATED TRUCK DRIVER Source Note - Wm Annamaria U., BLADE ALIGNER - 05/30/2018 3:14 PM NATIONAL DEDICATED TRUCK DRIVER Center for Preoperative Assessment and Planning Preoperative Evaluation Record CPAP Clinic at [facility] ([facility]) Date: 05/30/18 Anesthesia Evaluation Marnie Roque is [...] Cardiovascular Pertinent negatives: hypertension ; CAD ; CA ; CABG ; valve replacement; atrial fibrillation; [...] in place. Please call the CPAP attending ([phone]) with any questions. . Follow up note [...] blood does not need to come from [facility] but does need to be a full [...] Medication protocol when under care of a VOICE PATHOLOGIST Planned anesthesia: Regional for postop pain per [...] and agree to proceed. All questions answered. ONAL DEDICATED TRUCK DRIVER ONAL DEDICATED TRUCK DRIVER ONAL DEDICATED TRUCK DRIVER ONAL DEDICATED TRUCK DRIVER ONAL DEDICATED TRUCK DRIVER ONAL DEDICATED TRUCK DRIVER * Jeff Alicea MD - 06/19/2018 11:08 AM CST I have reviewed the H&P, examined the patient, and endorse the findings as written. Plan of Care : Based on the above findings, I consider Marnie Roque to be an acceptable risk for : Procedure(s): REVISION ARTHROPLASTY LEFT TOTAL KNEE Jeff Alicea MD Fellow - [facility] in [place] Joint [facility]ervation, Resurfacing, and Reconstruction Department of Orthopaedic Surgery Cosigned by David Ba MD at 06/20/2018 6:14 PM NATIONAL DEDICATED TRUCK DRIVER ONAL DEDICATED TRUCK DRIVER ONAL DEDICATED TRUCK DRIVER Source Note - Annamaria Burk Cesar, BLADE ALIGNER - 05/30/2018 3:14 PM NATIONAL DEDICATED TRUCK DRIVER Center for Preoperative Assessment and Planning Preoperative Evaluation Record CPAP Clinic at [facility] ([facility]) Date: 05/30/18 Anesthesia Evaluation Marnie Roque is [...] Cardiovascular Pertinent negatives: hypertension ; CAD ; CA ; CABG ; valve replacement; atrial fibrillation; [...] in place. Please call the CPAP attending ([phone]) with any questions. . Follow up note [...] Follow-up completed by: Ginette Barnett NP on 01/16/19 at 1:40 PM Discussed with: Miki Patiño [...] for requested labs within last 720 hours. Anesthesia Plan ONAL DEDICATED TRUCK DRIVER ONAL DEDICATED TRUCK DRIVER ONAL DEDICATED TRUCK DRIVER ONAL DEDICATED TRUCK DRIVER ONAL DEDICATED TRUCK DRIVER documented in this encounter Miscellaneous Notes * Plan of Care - Rachael Dowell RN - 06/20/2018 11:09 AM CST Activity: ??? Ability to avoid complications of mobility impairment will improve Completed ??? Range of joint motion will improve Completed ??? Ability to tolerate increased activity will improve Completed ??? Will remain free from falls Completed Health Behavior: ??? Understanding of discharge needs will improve Completed Lack of Knowledge: ??? Verbalization of understanding the information provided will improve Completed Lack of Knowledge: ??? Ability to state ways to decrease the risk of falls will improve Completed Physical Regulation: ??? Ability to maintain clinical measurements within normal limits will improve Completed ??? Postoperative complications will be avoided or minimized Completed ??? Diagnostic test results will improve Completed Safety: ??? Will remain free from falls Completed ??? Will remain free from injury from falls Completed ??? Will remain free from falls and injury in home environment Completed Self-Care: ??? Ability to meet self-care needs will improve Completed Sensory: ??? Pain level will decrease Completed Skin Integrity: ??? Signs of wound healing will improve Completed ??? Will remain free from infection Completed ??? Risk for impaired skin integrity will decrease Completed Goals: Clinical Goals for the Shift: IS, ankle pumps, pain control, discharge Summary: Pt oriented x4, on room air, VSS. Pharmacy discussed coumadin education, education reinforced by this RN. Ankle pumps encouraged as well as IS. Pts IV removed, discharge instructions read to pt and visitor, both had the opportunity to ask questions and all questions answered appropriately. Prescription instructions provided as well. Rachael Dowell RN ONAL DEDICATED TRUCK DRIVER * Plan of Care - Va Daniel RN - 06/20/2018 8:45 AM CST Patient will dc home with [facility] RN/PT. Please call [phone] with questions. ONAL DEDICATED TRUCK DRIVER * Plan of Care - Aakash Engle RN - 06/20/2018 2:47 AM CST Goals: Clinical Goals for the Shift: pain control, up to chair, ray removed Summary: Activity: ??? Ability to avoid complications of mobility impairment will improve Progressing ??? Range of joint motion will improve Progressing ??? Ability to tolerate increased activity will improve Progressing ??? Will remain free from falls Progressing Health Behavior: ??? Understanding of discharge needs will improve Progressing Lack of Knowledge: ??? Verbalization of understanding the information provided will improve Progressing Lack of Knowledge: ??? Ability to state ways to decrease the risk of falls will improve Progressing Physical Regulation: ??? Ability to maintain clinical measurements within normal limits will improve Progressing ??? Postoperative complications will be avoided or minimized Progressing ??? Diagnostic test results will improve Progressing Safety: ??? Will remain free from falls Progressing ??? Will remain free from injury from falls Progressing ??? Will remain free from falls and injury in home environment Progressing Self-Care: ??? Ability to meet self-care needs will improve Progressing Sensory: ??? Pain level will decrease Progressing Skin Integrity: ??? Signs of wound healing will improve Progressing ??? Will remain free from infection Progressing ??? Risk for impaired skin integrity will decrease Progressing ONAL DEDICATED TRUCK DRIVER * Plan of Yasmeen - Suzan Rod RN - 06/19/2018 5:23 PM CST Activity: ??? Ability to avoid complications of mobility impairment will improve Progressing ??? Range of joint motion will improve Progressing ??? Ability to tolerate increased activity will improve Progressing ??? Will remain free from falls Progressing Health Behavior: ??? Understanding of discharge needs will improve Progressing Lack of Knowledge: ??? Verbalization of understanding the information provided will improve Progressing Physical Regulation: ??? Ability to maintain clinical measurements within normal limits will improve Progressing ??? Postoperative complications will be avoided or minimized Progressing ??? Diagnostic test results will improve Progressing Self-Care: ??? Ability to meet self-care needs will improve Progressing Sensory: ??? Pain level will decrease Progressing Skin Integrity: ??? Signs of wound healing will improve Progressing ??? Will remain free from infection Progressing ??? Risk for impaired skin integrity will decrease Progressing Goals: pain control Summary: admit to nursing unit ONAL DEDICATED TRUCK DRIVER * Perioperative Nursing Note - Melissa Jorge RN - 06/19/2018 3:14 PM NATIONAL DEDICATED TRUCK DRIVER REMOVAL OF PREVIOUS TOTAL KNEE FEMORAL, TIBIAL AND POLY ONAL DEDICATED TRUCK DRIVER * Brief Op Note - Jeff Alicea MD - 06/19/2018 2:05 PM NATIONAL DEDICATED TRUCK DRIVER Operative Progress Note Attending Surgeon: David Ba MD Surgical Team: Mechanical Systems Engineer: Jaelyn Nelson RN; Melissa Jorge RN Scrub: ST Ezequiel BENDER MACHINE OPERATOR: ROSSY Cortes DATE OF SURGERY : 06/19/2018 Preoperative Diagnosis: Pre-op Diagnosis * Mechanical loosening of internal left knee prosthetic joint, initial encounter ([facility]) [T84.033A] Postoperative Diagnosis: Post-op Diagnosis * Mechanical loosening of internal left knee prosthetic joint, initial encounter ([facility]) [T84.033A] Procedure: Procedure(s): REVISION ARTHROPLASTY LEFT TOTAL KNEE Operative Findings: Left TKA malalignment Estimated Blood Loss: 400 mL Specimens: No specimen collected in procedure Implants: Implant Name Type Inv. Item Serial No. [employer] Reports Developer Lot No. LRB No. Used [employer] [id number] ATTUNE 4MM REVISION CEMENT KNEE POSTERIOR 5 AUGMENT FEMORAL LATEX FREE - [id number] [employer] [id number] ATTUNE 4MM REVISION CEMENT KNEE POSTERIOR 5 AUGMENT FEMORAL LATEX FREE [employer] [id number] Left 1 [employer] [id number] ATTUNE 4MM REVISION CEMENT KNEE POSTERIOR 5 AUGMENT FEMORAL LATEX FREE - [id number] [employer] [id number] ATTUNE 4MM REVISION CEMENT KNEE POSTERIOR 5 AUGMENT FEMORAL LATEX FREE [employer] [id number] Left 1 [employer] [id number] REVISION CEMENT CONSTRAIN KNEE LEFT 5 COMPONENT FEMORAL ATTUNE - [id number] [employer] [id number] REVISION CEMENT CONSTRAIN KNEE LEFT 5 COMPONENT FEMORAL ATTUNE [employer] [id number] Left 1 [employer] [id number] ATTUNE REVISION CEMENT ROTATE PLATFORM KNEE 4 BASEPLATE TIBIAL - [id number] [employer] [id number] ATTUNE REVISION CEMENT ROTATE PLATFORM KNEE 4 BASEPLATETIBIAL [employer] [id number] Left 1 [employer] [id number] ATTUNE OD12 MM L60 MM REVISION PRESS FIT KNEE STEM FEMORAL STERILELATEX FREE - [id number] [employer] [id number] ATTUNE OD12 MM L60 MM REVISION PRESS FIT KNEE STEM FEMORAL STERILE LATEX FREE [employer] [id number] Left 1 [employer] [id number] ATTUNE 16MM 60MM REVISION PRESS FIT KNEE STEM FEMORAL STERILE LATEX FREE - [id number] [employer] [id number] ATTUNE 16MM 60MM REVISION PRESS FIT KNEE STEM FEMORAL STERILE LATEX FREE [employer] [id number] Left 1 [employer] [id number] ATTUNE 4MM REVISION CEMENT KNEE DISTAL 5 AUGMENT FEMORAL STERILE LATEX FREE - [id number] [employer] [id number] ATTUNE 4MM REVISION CEMENT KNEE DISTAL 5 AUGMENT FEMORAL STERILE LATEX FREE [employer] [id number] Left 1 [employer] [id number] [employer] VISCOSITY CEMENT 40GM BONE STERILE - [id number] [employer] [id number] [employer] VISCOSITY CEMENT 40GM BONE STERILE [employer] [id number] Left 1 [employer] [id number] [employer] VISCOSITY CEMENT 40GM BONE GENTAMICIN - [id number] [employer] [id number] [employer] VISCOSITY CEMENT 40GM BONE GENTAMICIN [employer] [id number] Left 1 [employer] [id number] ATTUNE H14 MM REVISION CONSTRAIN ROTATE PLATFORM KNEE 5 INSERT TIBIAL AOX STERILE - [id number] [employer] [id number] ATTUNE H14 MM REVISION CONSTRAIN ROTATE PLATFORM KNEE 5 INSERT TIBIAL AOX STERILE [employer] [id number] Left 1 Complications: None Condition on Discharge from the operating room was stable Jeff Alicea MD Date: 06/19/2018 Time: 4:14 PM No Resident involved on case ONAL DEDICATED TRUCK DRIVER * Op Note - David Ba MD - 06/19/2018 12:00 AM CST Attending Surgeon David Ba M.D. Credit Card Analyst Jeff Alicea M.D. 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 Procedure Performed Left total knee arthroplasty revision. Implants utilized Tibial component: Size 4 base plate with a 12 x 60 mm stem. Femoral component: Size 5 with distal augments laterally of 4 mm and posterior augments medially and laterally of 4 mm and a size 16 x 120 mm stem. Polyethylene insert: Size 14 stabilized stem. History The patient was seen and evaluated in my outpatient clinic. The patient had previous bilateral total knee arthroplasty performed at an outside hospital. Both of them were cut into a significant amount of varus and the patient had aseptic loosening in both. I did revise her right total knee arthroplasty in January of 2018. She has done extremely well from that. It was the worst of the 2 sides. Now that she is far enough recovered from her right side, she wished to proceed forward with the leftside. Operative Course The patient was seen and evaluated in the preoperative holding area. All necessary informed consents were obtained. The patient's correct operative site was marked. She was taken to the operating room after successful induction of spinal anesthesia. The patient received perioperative antibiotics and her left knee was prepped and draped in the usual sterile fashion. Utilizing previous anterior midline incision, sharp dissection was carried down through skin and subcutaneous fat, down to the layer of the extensor mechanism and a medial parapatellar arthrotomy was performed. Upon entering the joint, the synovial fluid looked good, tissue looked healthy, but you could see there was clearly loosening of her tibial component. At that point, we placed retractors. We were able to easily remove her femoral component with minimal blood loss. Her tibial component pulled out without any bone interdigitation to the cement. Then, at that point, we cleared out the debris and placed retractors and then started to prepare for the implant. We used a [employer] revision knee system using intramedullary guidance to prepare for the femur and tibia, and sized this to the appropriate size of the bone.We then prepared for the cuts and augmented where necessary. On the femoral side, it was a size 5 femoral component with an augment posteriorly of 4 mm medially and lateral and a distal augment of 4 mm with a stem that was 16 x 160. On the tibial side, we used a size 4 tibial base plate with a stemthat was 12 x 60, and then we trialed with a 14 mm polyethylene insert. We had excellent stability,good range of motion, straightening of her leg both with her flexion contracture as well as with her varus deformity. We then removed all the trials, irrigated out the knee with several liters of puls atile lavage, implanted in the new implants, allowed the cement to harden, placed the final polyethylene liner and then again checked the knee range of motion and stability, irrigated out the knee and closed the arthrotomy with interrupted #1 Vicryl oversewed with Stratafix symmetric suture, closedthe skin with a running subcuticular Prineo. The patient was then taken to the postop recovery roomin stable condition. Estimated blood loss 200. Urine output None recorded. Crystalloid 2500. Colloid None. Blood None. Anesthesia type Spinal. Please note, I was the attending of record. I was present for both the critical and noncritical. The critical portions of the procedure included the exposure, the removal of the previous implants, the trialing of the implants, the final implantation of components and the initiation of the deep wound closure. I was immediately available for the noncritical portions of the procedure. Job ID/VF Job ID: [id number] ONAL DEDICATED TRUCK DRIVER documented in this encounter Plan of Treatment Not on file documented as of this encounter Procedures Procedure Name Priority Date/Time Associated Diagnosis Comments EGFR Routine 06/20/2018 3:46 AM NATIONAL DEDICATED TRUCK DRIVER PROTIME-INR Routine 06/20/2018 3:46 AM NATIONAL DEDICATED TRUCK DRIVER CBC WITHOUT DIFFERENTIAL Routine 06/20/2018 3:46 AM NATIONAL DEDICATED TRUCK DRIVER BASIC METABOLIC PANEL Routine 06/20/2018 3:46 AM NATIONAL DEDICATED TRUCK DRIVER PROTIME-INR STAT 06/19/2018 5:48 PM NATIONAL DEDICATED TRUCK DRIVER XR KNEE LEFT 1 OR 2 VIEWS STAT 06/19/2018 4:15 PM NATIONAL DEDICATED TRUCK DRIVER REVISION ARTHROPLASTY TOTAL KNEE 06/19/2018 1:43 PM NATIONAL DEDICATED TRUCK DRIVER Mechanical loosening of internal left knee prosthetic joint, initial encounter ([facility]) PREPARE RBC Timed 06/19/2018 12:00 PM [employer]ATIONAL [employer]ATED [employer]UCK DRIVER documented in this encounter Results * eGFR (06/20/2018 3:46 AM NATIONAL DEDICATED TRUCK DRIVER) eGFR >60 mL/min/1.7 3 m2 VINICIO VICK Comment: Interpretive Data Reference Interval Normal ?>/= 90 mL/min/1.73m2 Mildly decreased* ? 60 - 89 mL/min/1.73m2 Mildly to moderately decreased ?45 - 59 mL/min/1.73m2 Moderately to severely decreased ??30 - 44 mL/min/1.73m2 Severely decreased ?15 - 29 mL/min/1.73m2 Kidney Failure ?< 15 ??mL/min/1.73m2 *Relative to young adult level If -Georgian multiply value by 1.16. Estimated glomerular filtration rate is determined by the CKD-EPI equation recommended by the National Kidney Foundation (KDIGO 2012 Clinical Practice Guideline for the Evaluation and Management of Chronic Kidney Disease. Kidney Intnl Suppl May 2012;3:1). The CKD-EPI equation should not be used for patients with unstable renal function and has not been validated in children and those over 70. Current interpretive data was last reviewed 2015. Blood specimen (specimen) 06/20/2018 3:46 AM NATIONAL D[employer]ATED TRUCK DRIVER 06/20/2018 5:17 AM [employer]ATIONAL D[employer]ICATED TRUCK DRIVER Narrative VINICIO VICK - 06/20/2018 5:56 AM NATIONAL D[employer]ICATED TRUCK DRIVER us David Ba MD LAB BLOOD ORDERABLES Graciela quinteros Result [facility] [id number] [facility]. [place] [address] * (ABNORMAL) Protime-INR (06/20/2018 3:46 AM NATIONAL D[employer]ICATED TRUCK DRIVER) PT 15.5(H) 11.5 - 14.0 sec VINICIO VICK INR 1.2(H) 0.9 - 1.1 VINICIO VICK Comment: Interpretive Data ORTHOPEDIC Total Hip and Knee Arthroplasty ?1.8 to 2.6 Hip Fracture ? 1.8 to 2.6 CARDIOLOGY Atrial Fibrillation ?2.0 to 3.0 Cardiomyopathy ? 2.0 to 3.0 Myocardial Infarction ?2.0 to 3.0 Bioprosthetic Heart Valve ?2.0 to 3.0 Mechanical Valve Replacement ? 2.[address] Venkat Mechanical Aortic Valve ? 2.0 to 3.0 TREATMENT OF VENOUS THRMBOSIS Deep Vein Thrombosis ? 2.0 to 3.0 Pulmonary Embolism ? 2.0 to 3.0 Current interpretive data was last revised on 2014. Blood specimen (specimen) 06/20/2018 3:46 AM NATIONAL D[employer]ICATED TRUCK DRIVER 06/20/2018 5:17 AM NATIONAL DEDICATED TRUCK DRIVER Narrative [facility] - 06/20/2018 5:35 AM NATIONAL D[employer]ICATED TRUCK DRIVER us David Ba MD LAB BLOOD ORDERABLES Graciela l Result VINICIO VICK [id number] [address] [employer] [place], [place] [id number] * (ABNORMAL) CBC without differential (06/20/2018 3:46 AM NATIONAL D[employer]ICATED TRUCK DRIVER) WBC 13.9(H) 3.8 - 9.9 K/cumm [facility] Hgb 11.6(L) 11.9 - 15.5 g/dL [facility] Hct 36.7 35.6 - 45.5 % [facility] Plt 274 150 - 400 K/cumm [facility] MPV 12.3 9.1 - 12.3 fL [facility] RBC 4.00 3.90 - 5.20 M/cumm [facility] MCV 91.8 81.3 - 96.4 fL [facility] MCH 29.0 27.1 - 33.3 pg [facility] MCHC 31.6(L) 32.3 - 35.7 g/dL [facility] RDW CV 13.6 11.1 - 14.9 % [facility] RDW SD 46.2 35.7 - 48.1 fL [facility] NRBC abs 0.00 0.00 - 0.01 K/cumm [facility] Blood specimen (specimen) 06/20/2018 3:46 AM NATIONAL D[employer]ICATED TRUCK DRIVER 06/20/2018 5:17 AM NATIONAL DEDICATED TRUCK DRIVER Narrative VINICIO [facility] - 06/20/2018 5:21 AM NATIONAL DEDICATED TRUCK DRIVER us David Ba MD LAB BLOOD ORDERABLES Graciela l Result Performing Organization Address [facility]/ZIP Co de Phone Number VINICIO VICK [phone] [facility] [place] [address] * Basic metabolic panel (06/20/2018 3:46 AM NATIONAL D[employer]ICATED TRUCK DRIVER) Sodium 142 135 - 145 mmol/L [facility] Potassium, pl 4.3 3.3 - 4.9 mmol/L [facility] Chloride 105 97 - 110 mmol/L [facility] CO2 22 22 - 32 mmol/L [facility] Anion gap 15 2 - 15 mmol/L [facility] BUN 14 8 - 25 mg/dL [facility] Creatinine 0.60 0.60 - 1.10 mg/dL [facility] Glucose 159 70 - 199 mg/dL [facility] Comment: Interpretive Data Fasting glucose >/= 126 mg/dl is diagnostic for diabetes. ?? Fasting is defined as no caloric intake for at least 8 hours. Fasting glucose between 100 mg/dl to 125 mg/dl is diagnostic of prediabetes. In a patient with classic symptoms of hyperglycemia or hyperglycemic crisis, a random glucose >/= 200 mg/dl is diagnostic for diabetes. In the absence of unequivocal hyperglycemia, results should be confirmed by repeat testing. The classification and Diagnosis of Diabetes Diabetes Care 2017;40 (Suppl. 1):S11. Current interpretive data was last revised 2017. Calcium 9.4 8.5 - 10.3 mg/dL [facility] Blood specimen (specimen) 06/20/2018 3:46 AM NATIONAL D[employer]ICATED TRUCK DRIVER 06/20/2018 5:17 AM NATIONAL DEDICATED TRUCK DRIVER Narrative [facility] - 06/20/2018 5:56 AM NATIONAL DEDICATED TRUCK DRIVER David Ba MD LAB BLOOD ORDERABLES Graciela quinteros Result [facility] [id number] [facility]. [place] [address] * (ABNORMAL) Protime-INR (06/19/2018 5:48 PM NATIONAL D[employer]ICATED TRUCK DRIVER) PT 14.8(H) 11.5 - 14.0 sec VINICIO [facility] INR 1.2(H) 0.9 - 1.1 [facility] Comment: Interpretive Data ORTHOPEDIC Total Hip and Knee Arthroplasty ?1.8 to 2.6 Hip Fracture ? 1.8 to 2.6 CARDIOLOGY Atrial Fibrillation ?2.0 to 3.0 Cardiomyopathy ? 2.0 to 3.0 Myocardial Infarction ?2.0 to 3.0 Bioprosthetic Heart Valve ?2.0 to 3.0 Mechanical Valve Replacement ? 2.[address] Venkat Mechanical Aortic Valve ? 2.0 to 3.0 TREATMENT OF VENOUS THRMBOSIS Deep Vein Thrombosis ? 2.0 to 3.0 Pulmonary Embolism ? 2.0 to 3.0 Current interpretive data was last revised on 2014. Blood specimen (specimen) 06/19/2018 5:48 PM NATIONAL D[employer]ATED TRUCK DRIVER 06/19/2018 5:56 PM NATIONAL DEDICATED TRUCK DRIVER Narrative [facility]INICIO [facility] - 06/19/2018 6:17 PM NATIONAL D[employer]ICATED TRUCK DRIVER Ry Atkins MD LAB BLOOD ORDERABLES Final Result Performing Organization Address [facility]/State/[facility] Co ms Phone Number VINICIO [facility] [id number] [facility]. [place] [address] * XR Knee Left 1 or 2 View (06/19/2018 4:15 PM NATIONAL D[employer]ICATED TRUCK DRIVER) Anatomical Region Laterality Modality Lower Extremities, Knee Left Computed Radiography 06/19/2018 4:21 PM NATIONAL D[employer]ATED TRUCK DRIVER Impressions 06/19/2018 4:21 PM NATIONAL D[employer]ATED TRUCK DRIVER 1. New revision of a left total knee arthroplasty. Electronically signed by: Leon Carlton M.D. Narrative 06/19/2018 4:21 PM NATIONAL D[employer]ATED TRUCK DRIVER EXAMINATION: Left knee 1 or 2 views HISTORY: Painful left knee arthroplasty FINDINGS: 2 view examination of the left knee is compared with a study dated 04/11/2018. There is new revision of a left total knee arthroplasty, with longstem, hinged tibial and femoral components. There is anterior soft tissue swelling with postoperative soft tissue gas. No fracture is present. Procedure Note Leon Carlton MD - 06/19/2018 EXAMINATION: Left knee 1 or 2 views HISTORY: Painful left knee arthroplasty FINDINGS: 2 view examination of the left knee is compared with a study dated 04/11/2018. There is new revision of a left total knee arthroplasty, with longstem, hinged tibial and femoral components. There is anterior soft tissue swelling with postoperative soft tissue gas. No fracture is present. IMPRESSION: 1. New revision of a left total knee arthroplasty. Electronically signed by: Leon Carlton M.D. us David Ba MD IMG XR PROCEDURES Final R esult * Prepare RBC: 2 Units (06/19/2018 12:00 PM NATIONAL D[employer]ICATED TRUCK DRIVER) Units requested 2 VINICIO PACHECOW[facility] Units requested Ready VINICIO VICK Blood specimen (specimen) 06/19/2018 12:00 PM NATIONAL D[employer]ICATED TRUCK DRIVER 06/19/2018 12:17 PM NATIONAL D[employer]ICATED TRUCK DRIVER Narrative VINICIO VICK - 06/19/2018 7:17 PM NATIONAL D[employer]ICATED TRUCK DRIVER Specify Procedure:->left knee revision Are special requirements needed? (all products are leukoreduced)->No us Ginette Barnett NP BLOOD BANK PRODUCT ORDERABLE S Final Result [facility]INICIO [facility] [id number] [facility]. 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 Aftercare following knee joint replacement surgery, unspecified laterality Anticoagulation monitoring, special range Encounter for long-term (current) use of anticoagulants Mechanical loosening of internal left knee prosthetic joint, initial encounter (HCC) Migraine Migraine, unspecified, without mention of intractable migraine without mention of status migrainosus Anxiety Anxiety state, unspecified Depression Depressive disorder, not elsewhere classified Hypothyroidism Unspecified hypothyroidism documented in this encounter Admitting Diagnoses Diagnosis 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) documented in this encounter Administered Medications Inactive Administered Medications - up to 3 most recent administrations Medication Order MAR Action Action Date Dose Rate Site ceFAZolin (ANCEF) 2000 mg/20 mL in sterile water (premix) 2,000 mg 2,000 mg, intravenous, at 400 mL/hr, Administer over 3 Minutes, Every 8 hours, First dose on Nadya 06/19/18 at 2100, For 2 doses, Beginning 8 hours after last veronika-operative dose., Indications: Prophylaxis, SurgicalIndications:Prophyl axis, Surgical New Bag 06/20/2018 3:44 AM NATIONAL D[employer]ICATED TRUCK DRIVER 2,000 mg 400 mL/hr New Bag 06/19/2018 8:34 PM NATIONAL D[employer]ICATED TRUCK DRIVER 2,000 mg 400 mL/hr dexamethasone (DECADRON) injection 8 mg 8 mg, intravenous, Administer over 2 Minutes, Once, On Nadya 06/19/18 at 1745, For 1 dose, Intra-Op, Give at time of skin closure Given 06/19/2018 5:29 PM NATIONAL D[employer]ATED TRUCK DRIVER 8 mg HYDROmorphone (DILAUDID) injection 0.2 mg 0.2 mg, intravenous, Administer over 2 Minutes, Every 4 hours PRN, 2nd line for pain, Starting on Nadya 06/19/18 at 1711, May administer 1 hour after second dose of 1st line analgesic agent for uncontrolled or increasing pain., Indications: PainIndications:Pain Given 06/19/2018 6:16 PM NATIONAL D[employer]ICATED TRUCK DRIVER 0.2 mg Lactated Ringer's (LR) bolus 1,000 mL 1,000 mL, intravenous, Once, On Nadya 06/19/18 at 1200, For 1 dose, Pre-Op New Bag 06/19/2018 12:03 PM NATIONAL DEDICATED TRUCK DRIVER 1,000 m L Lactated Ringer's (LR) infusion 30 mL/hr, intravenous, Continuous, Starting on Nadya 06/19/18 at 1200, Pre-Op New Bag 06/19/2018 2:50 PM NATIONAL D[employer]ICATED TRUCK DRIVER New Bag 06/19/2018 1:22 PM NATIONAL DEDICATED TRUCK DRIVER 30 mL/hr 30 mL/hr ondansetron (ZOFRAN) injection 4 mg 4 mg, intravenous, Administer over 2 Minutes, Every 6 hours PRN, nausea, vomiting, if not tolerating PO, Starting on Nadya 06/19/18 at 1711, Indications: nausea and vomitingIndications:nausea and vomiting ondansetron ODT (ZOFRAN-ODT) disintegrating tablet 4 mg 4 mg, oral, Every 6 hours PRN, nausea, vomiting, Starting on Nadya 06/19/18 at 1711, Indications: nausea and vomitingIndications:nausea and vomiting oxyCODONE-acetaminophen (PERCOCET) 5-325 mg per tablet 1 tablet 1 tablet, oral, Every 4 hours PRN, 1st line for pain, Starting on Nadya 06/19/18 at 1711, May repeat in 1 hour if pain is uncontrolled or increasing. Max 2 doses within 1 dosing interval., Indications: PainIndications:Pain Given 06/20/2018 7:21 AM NATIONAL D[employer]ICATED TRUCK DRIVER 1 tablet Given 06/20/2018 3:43 AM NATIONAL DEDICATED TRUCK DRIVER 1 tablet Given 06/19/2018 11:17 PM NATIONAL DEDICATED TRUCK DRIVER 1 tablet senna-docusate (PERICOLACE) 8.6-50 mg per tablet 2 tablet 2 tablet, oral, 2 times daily, First dose on Nadya 06/19/18 at 2100, Hold for diarrhea., Indications: constipationIndications:constip ation Given 06/19/2018 8:34 PM NATIONAL D[employer]ICATED TRUCK DRIVER 2 tablets sodium chloride 0.9% flush 0.5-20 mL 0.5-20 mL, intra-catheter, As needed, line care, Starting on Nadya 06/19/18 at 1711, Flush volume based on line type and size. Flush before and after each use. Given 06/20/2018 3:44 AM NATIONAL DEDICATED TRUCK DRIVER 10 mL sodium chloride 0.9% infusion 100 mL/hr, intravenous, Continuous, Starting on Nadya 06/19/18 at 1745, Phase I & Post-op Floor New Bag 06/19/2018 5:16 PM NATIONAL D[employer]ICATED TRUCK DRIVER 100 mL/hr 100 mL/hr vancomycin (VANCOCIN) 1,500 mg in sodium chloride 0.9% 250 mL IVPB 1,500 mg, intravenous, at 176.7 mL/hr, Administer over 90 Minutes, Once, On Sat06/20/18 at 0200, For 1 dose, Administer 12 hours after pre-procedure dose., Indications: Prophylaxis, SurgicalIndications:Prophylaxis , Surgical New Bag 06/20/2018 1:27 AM NATIONAL D[employer]ICATED TRUCK DRIVER 1,500 mg 176.7 mL/hr warfarin (COUMADIN) tablet 5 mg 5 mg, oral, Daily (for warfarin), First dose on Nadya 1/24/19 at 1800, 2.2, Target INR: 2 - 3, Indications: VTE ProphylaxisIndications:VTE Prophylaxis Given 06/19/2018 7:16 PM NATIONAL D[employer]ICATED TRUCK DRIVER 5 mg documented in this encounter Discontinued Medications Medication Sig Discontinue Reason Start Date End Da te warfarin (COUMADIN) 2 mg tabletIndications:VTE Prophylaxis Following Ortho Surgery TAKE 2.5 TAB =5 MG DAY BEFORE SURGERY AT NOON ; AFTER SURGERY TAKE COUMADIN DAILY ORDERED IN THE HOSPITAL AT 5 PM 06/11/2018 06/20/2018 hydrOXYzine (VISTARIL) 25 mg capsuleIndications:Aft ercare following knee joint replacement surgery, unspecified laterality Take 1 capsule (25 mg total) by mouth 3 (three) times a day as needed for anxiety. 03/05/2018 06/20/2018 meloxicam (MOBIC) 15 mg tabletIndications:Afte rcare following right knee joint replacement surgery Take 1 tablet (15 mg total) by mouth daily. Stop Taking at Discharge 04/11/2018 06/20/2018 aspirin 325 mg tabletIndications:Pain Take 325 mg by mouth as needed for pain. Stop Taking at Discharge 06/20/2018 multivitamin capsuleIndications:Vit gaitan Deficiency Prevention Take 1 capsule by mouth daily after lunch. Stop Taking at Discharge 06/20/2018 UNABLE TO FINDIndications:pain Take 1 each by mouth as needed. Med Name: Essential oils capsule (Dotera brand) Stop Taking at Discharge 06/20/2018 documented as of this encounter Active and Recently Administered Medications Times are shown in NATIONAL D[employer]ICATED TRUCK DRIVER. Scheduled Medication Order 06/18/2018 06/19/2018 06/20/2018 ceFAZolin (ANCEF) 2000 mg/20 mL in sterile water (premix) 2,000 mg (COMPLETED) 2,000 mg, intravenous, at 400 mL/hr, Administer over 3 Minutes, Every 8 hours, First dose on Nadya 06/19/18 at 2100, For 2 doses, Beginning 8 hours after last veronika-operative dose., Indications: Prophylaxis, Surgical 2033 (New Bag - Provider: Aakash Engle RN) 343 (New Bag - Provider: Aakash Engle RN) ceFAZolin (ANCEF) 3,000 mg in sodium chloride 0.9 % 3,000 mL irrigation solution (COMPLETED) 3,000 mg, irrigation, Once, On Nadya 06/19/18 at 1200, For 1 dose, Intra-Op, Have ready for intra-op administration. 1406 (Given - Provider: David Ba MD)1744 (Not Given - Provider: Suzan Rod, TAL - Reason: Other - Comment: due at 1200, not to room till 1705, this dose was OR dose not given. reconciling alert) dexamethasone (DECADRON) injection 8 mg (COMPLETED) 8 mg, intravenous, Administer over 2 Minutes, Once, On Nadya 06/19/18 at 1745, For 1 dose, Intra-Op, Give at time of skin closure 1729 (Given - Provider: Suzan Rod, TAL) fentaNYL (SUBLIMAZE) preservative free injection 100 mcg (COMPLETED) 100 mcg, intravenous, Once, On Nadya 06/19/18 at 1200, For 1 dose, Pre-Op, Have ready for block., Indications: Pre-Emptive Analgesia 1324 (Given - Provider: Minor Bruce MD) ketorolac (TORADOL) injection 30 mg (COMPLETED) 30 mg, intravenous, Once, On Nadya 06/19/18 at 1200, For 1 dose, Intra-Op, INTRA-OP Give at time of skin closure, Indications: Postoperative Pain Management 1549 (Given - Provider: Rebel Leyva CRNA) Lactated Ringer's (LR) bolus 1,000 mL (COMPLETED) 1,000 mL, intravenous, Once, On Nadya 06/19/18 at 1200, For 1 dose, Pre-Op 1203 (New Bag - Provider: Rachael Hopkins RN) midazolam (VERSED) injection 4 mg (COMPLETED) 4 mg, intravenous, Once, On Nadya 06/19/18 at 1200, For 1 dose, Pre-Op, Have ready for block., Indications: Preoperative Anxiety, Conscious Sedation 1324 (Given - Provider: Minor Bruce MD) scopolamine patch 72 hour 1 patch 1 patch, transdermal, Administer over 72 Hours, Once, On Nadya 06/19/18 at 1200, For 1 dose, Pre-Op, Apply to Dr. Fitzpatrick's patients, as well as to beach-chair position shoulder surgery patients, and to patients with a history of PONV and/or Motion Sickness. Do NOT administer to patients with a history of BPH or Glaucoma. Consult Anesthesiologist with any questions., Indications: Motion Sickness, Prevention of Motion Sickness, Prevention of Post-Operative Nausea and Vomiting 1755 (Not Given - Provider: Suzan Rod RN - Reason: Other) senna-docusate (PERICOLACE) 8.6-50 mg per tablet 2 tablet 2 tablet, oral, 2 times daily, First dose on Nadya 06/19/18 at 2100, Hold for diarrhea., Indications: constipation 2033 (Given - Provider: Aakash Engle RN) 0839 (Not Given - Provider: Rachael Dowell RN - Reason: Patient/family refused) sodium chloride 0.9% flush 0.5-20 mL 0.5-20 mL, intra-catheter, Every 8 hours scheduled, First dose on Nadya 06/19/18 at 1745, Flush volume based on line type and size. 1916 (Not Given - Provider: Suzan Rod RN - Reason: Other)2205 (Not Given - Provider: Aakash Engle RN - Reason: Other - Comment: iv infusing) 0600 (Canceled Entry - Provider: Aakash Engle RN) tranexamic acid (CYKLOKAPRON) 1000 mg in 0.9% sodium chloride 100 mL (simple) (COMPLETED)(Linked Group 1) 1,000 mg, intravenous, at 400 mL/hr, Administer over 15 Minutes, Once, On Nadya 06/19/18 at 1200, For 1 dose, Intra-Op, INTRA-OP Infuse over 10 minutes prior to skin incision, Indications: Reduction of Perioperative Blood Loss 1339 (Given - Provider: Ry Cisse CRNA)1514 (Given - Provider: Rebel Leyva CRNA) vancomycin (VANCOCIN) 1,500 mg in sodium chloride 0.9% 250 mL IVPB (COMPLETED) 1,500 mg, intravenous, at 176.7 mL/hr, Administer over 90 Minutes, Once, On Sat06/20/18 at 0200, For 1 dose, Administer 12 hours after pre-procedure dose., Indications: Prophylaxis, Surgical 0127 (New Bag - Provider: Aakash Engle RN) vancomycin 1500 mg/250 mL in sodium chloride 0.9% (premix) 1,500 mg (COMPLETED) 1,500 mg, intravenous, Administer over 90 Minutes, Once, On Nadya 06/19/18 at 1200, For 1 dose, Pre-Op, Administer within 120 minutes of incision., Indications: Prophylaxis, Surgical 1339 (Given - Provider: Ry Cisse CRNA) warfarin (COUMADIN) tablet 5 mg 5 mg, oral, Daily (for warfarin), First dose on Nadya 06/19/18 at 1800, 2.2, Target INR: 2 - 3, Indications: VTE Prophylaxis 1916 (Given - Provider: Suzan Rod RN) Continuous Medication Order 06/18/2018 06/19/2018 06/20/2018 Lactated Ringer's (LR) infusion (CANCELED) 30 mL/hr, intravenous, Continuous, Starting on Nadya 06/19/18 at 1200, Pre-Op 1322 (New Bag - Provider: Dillon Argueta RN)1450 (New Bag - Provider: Rebel Leyva CRNA)1556 (Continued from OR - Provider: Paul Avery RN) Lactated Ringer's (LR) infusion 125 mL/hr, intravenous, Continuous, Starting on Nadya 06/19/18 at 1630, Phase I 1716 (Stopped - Provider: Suzan Rod RN)1717 (Stopped - Provider: Suzan Rod RN) sodium chloride 0.9% infusion 100 mL/hr, intravenous, Continuous, Starting on Nadya 06/19/18 at 1745, Phase I & Post-op Floor 1716 (New Bag - Provider: Suzan Rod RN) 0343 (Stopped - Provider: Aakash Engle RN) PRN Medication Order 06/18/2018 06/19/2018 06/20/2018 bupivacaine-EPINEPHrine (MARCAINE with EPI) 30 mL, ketorolac (TORADOL) 30 mg solution (CANCELED) As needed, Starting on Nadya 06/19/18 at 1406, Intra-Op 1406 (Given - Provider: David Ba MD) HYDROmorphone (DILAUDID) injection 0.2 mg 0.2 mg, intravenous, Administer over 2 Minutes, Every 4 hours PRN, 2nd line for pain, Starting on Nadya 06/19/18 at 1711, May administer 1 hour after second dose of 1st line analgesic agent for uncontrolled or increasing pain., Indications: Pain 1816 (Given - Provider: Suzan Rod RN) ondansetron (ZOFRAN) injection 4 mg(Linked Group 2) 4 mg, intravenous, Administer over 2 Minutes, Every 6 hours PRN, nausea, vomiting, if not tolerating PO, Starting on Nadya 06/19/18 at 1711, Indications: nausea and vomiting ondansetron ODT (ZOFRAN-ODT) disintegrating tablet 4 mg(Linked Group 2) 4 mg, oral, Every 6 hours PRN, nausea, vomiting, Starting on Nadya 06/19/18 at 1711, Indications: nausea and vomiting oxyCODONE-acetaminophen (PERCOCET) 5-325 mg per tablet 1 tablet 1 tablet, oral, Every 4 hours PRN, 1st line for pain, Starting on Nadya 06/19/18 at 1711, May repeat in 1 hour if pain is uncontrolled or increasing. Max 2 doses within 1 dosing interval., Indications: Pain 1730 (Given - Provider: Suzan Rod RN)1747 (Given - Provider: Suzan Rod RN)2227 (Given - Provider: Aakash Engle RN)2317 (Given - Provider: Aakash Engle RN) 0343 (Given - Provider: Aakash Engle RN)0721 (Given - Provider: Aakash Engle RN) polyethylene glycol (MIRALAX) packet 17 g 17 g, oral, Daily PRN, constipation, Starting on Nadya 06/19/18 at 1711, Indications: constipation sodium chloride 0.9% flush 0.5-20 mL 0.5-20 mL, intra-catheter, As needed, line care, Starting on Nadya 06/19/18 at 1711, Flush volume based on line type and size. Flush before and after each use. 0344 (Given - Provid er: Aakash Engle RN) Linked Groups Order Group 1: tranexamic acid (CYKLOKAPRON) 1000 mg in 0.9% sodium chloride 100 mL (simple) (COMPLETED)Jump to med 1,000 mg, intravenous, at 400 mL/hr, Administer over 15 Minutes, Once, On Nadya 06/19/18 at 1200, For 1 dose, Intra-Op, INTRA-OP Infuse over 10 minutes prior to skin incision, Indications: Reduction of Perioperative Blood Loss And tranexamic acid (CYKLOKAPRON) 1000 mg in 0.9% sodium chloride 100 mL (simple) (CANCELED) 1,000 mg, intravenous, at 400 mL/hr, Administer over 15 Minutes, Once, On Nadya 06/19/18 at 1200, For 1 dose, Intra-Op, INTRA-OP Infuse over 10 minutes at the start of wound closure., Indications: Reduction of Perioperative Blood Loss Group 2: ondansetron ODT (ZOFRAN-ODT) disintegrating tablet 4 mgJump to med 4 mg, oral, Every 6 hours PRN, nausea, vomiting, Starting on Nadya 06/19/18 at 1711, Indications: nausea and vomiting Or ondansetron (ZOFRAN) injection 4 mgJump to med 4 mg, intravenous, Administer over 2 Minutes, Every 6 hours PRN, nausea, vomiting, if not tolerating PO, Starting on Nadya 06/19/18 at 1711, Indications: nausea and vomiting documented in this encounter Orders Medications Ordered That Barak ht Not Have Been Administered Count Last Ordered Date First Ordered Date acetaminophen (TYLENOL) tablet 500 mg acetaminophen (TYLENOL) tablet 650 mg bupivacaine-EPINEPHrine (MAR MARTY with EPI) 30 mL, ketorolac (TORADOL) 30 mg solution 1 06/19/2018 ceFAZolin (ANCEF) 1 gram/10 mL in sterile water (premix) 2,000 mg 06/19/2018 ceFAZolin (ANCEF) 3,000 mg i n sodium chloride 0.9 % 3,000 mL irrigation solution 06/19/2018 celecoxib (CeleBREX) capsule 200 mg 06/19 diphenhydrAMINE (BENADRYL) i njection 12.5 mg 06/19/2018 fentaNYL (SUBLIMAZE) preserv ative free injection 100 mcg 06/19/2018 fentaNYL (SUBLIMAZE) preserv ative free injection 25 mcg 06/19/2018 hydrALAZINE (APRESOLINE) injection 5 mg 1 0 06/19/2018 HYDROcodone-acetaminophen (N ORCO) 5-325 mg per tablet 1 tablet 06/19/2018 HYDROmorphone (DILAUDID) injection 0.2 mg 1 06/19/2018 ketorolac (TORADOL) injection 30 mg 1 06/19 Lactated Ringer's (LR) infusion 9 lidocaine PF (XYLOCAINE) 10 mg/mL (1 %) preservative free injection 50 mg 1 06/19/2018 meperidine (DEMEROL) preserv ative free injection 12.5 mg 1 06/19/2018 metoprolol (LOPRESSOR) injection 1 mg 1 midazolam (VERSED) injection 4 mg 1 019 ondansetron (ZOFRAN) injection 4 mg 2 06/19 ondansetron ODT (ZOFRAN-ODT) disintegrating tablet 4 mg 1 06/19/2018 polyethylene glycol (MIRALAX) packet 17 g 1 06/19/2018 prochlorperazine (COMPAZINE) injection 5 mg 1 06/19/2018 ropivacaine (NAROPIN) 2 mg/m L (0.2 %) preservative free injection 240 mg 1 06/19/2018 ropivacaine (NAROPIN) 5 mg/m L (0.5 %) preservative free injection 300 mg 1 06/19/2018 scopolamine patch 72 hour 1 patch 019 sodium chloride 0.9% flush 0.5-20 mL 2 05/28 tranexamic acid (CYKLOKAPRON ) 1000 mg in 0.9% sodium chloride 100 mL (simple) 2 06/19/2018 vancomycin 1500 mg/250 mL in sodium chloride 0.9% (premix) 1,500 mg 1 06/19/2018 General Supply Count Last Ordered Date First Or dered Date WALKER 1 06/20/2018 Diet Count Last Ordered Date First Orde red Date ADULT DISCHARGE DIET 1 06/20/2018 Nursing Count Last Ordered Date First Orde red Date DISCHARGE ACTIVITY 1 06/20/2018 DISCHARGE CALL PROVIDER 11 06/20/2018 DISCHARGE DRESSING 1 06/20/2018 DISCHARGE INSTRUCTIONS 3 06/20/2018 WEIGHT BEARING TOLERATED 1 06/20/2018 Admission Count Last Ordered Date First Orde red Date ASSIGN PATIENT STATUS 3 06/19/20182018 documented in this encounter Care Teams Boat Hop Relationship Specialty Start Date End Date René Smallwood MD PCP - General Family Medicine 12/02/17 02/10/20 documented as of this encounter
--- OUTSIDE RECORDS SUMMARY | 2024-05-11 17:35 | XMS_ITS | Encounter Summary ---
Author Organization [facility] Address [address] [place] [address] Phone Care Team Providers Care Buckle Gluer Name Role Phone René Smallwood MD Primary Care Provider +1 [phone] Encounter Details Date Type Department Care Team (Latest Contact Info) Description 07/01/2018 Anticoagulation Tele phone Call [facility] Orthopaedic Surgery [address] [place] [address] 1st [address] [place] [phone] Madonna Rodgers RN Social History Tobacco Use Types Packs/Day Years Used Date Smoking Tobacco: Former Cigarettes 0.5 25 0 05/27/1992 - 05/27/2017 Smokeless Tobacco: Never Alcohol Use Standard Drinks/Week Comments Yes 0 (1 standard drink = 0.6 oz pur e alcohol) social Comments No Sex and Gender Information Value Date Recorded Sex Assigned at Not on file 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 Gender Identity Not on file Sexual Orientation Not on file Occupation Industry Job Start Date Job End Date unemployed Not on file Not on file Not on file documented as of this encounter Plan of Treatment Not on file documented as of this encounter Procedures Procedure Name Priority Date/Time Associated Diagnosis Comments PROTIME-INR Routine 06/30/2018 documented in this encounter Results * (ABNORMAL) Protime-INR (06/30/2018) INR 2.30(A) 0.9 - 1.1 [facility] Blood specimen (specimen) us Sol Francisco MUSTANGER LAB BLOOD ORDERABLES Fi nal Result [facility] documented in this encounter Visit Diagnoses Not on filedocumented in this encounter Care Teams Buckle Gluer Relationship Specialty Start Date End Date René Smallwood MD PCP - General Family Medicine 12/02/17 02/10/20 documented as of this encounter
--- OUTSIDE RECORDS SUMMARY | 2024-05-11 17:35 | XMS_ITS | Encounter Summary ---
Author Organization [facility] Healthcare Address [address] [place] [address] Care Team Providers Care Doctor Naturopathic Name Role Phone René Smallwood MD Primary Care Provider [phone] [phone] Reason for Visit * Diagnostic Imaging (Routine) - Closed Specialty Diagnoses / Procedures Referred By Contac t Referred To Contact Diagnoses Back pain, unspecified back location, unspecified back pain laterality, unspecified chronicity Procedures XR Spine Lumbar 2 or 3 Views David Ba MD Phone: tel: fax: [facility] [address] Referral ID Status Reason Start Date Expiration Date Visits Re quested Visits Authorized [id number] Closed 09/03/2018 03/14/2020 1 1 Encounter Details Date Type Department Care Team (Latest Contact Info) Description 09/03/2018 1:00 PM CDT Ancillary Procedure [facility] Imaging [address] [place] [address] David Ba MD [address] [facility] [address] [place] [address] Back pain, unspecified back location, unspecified back [...] on file 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 Dictated by: René Ruff M.D. The radiology attending physician has personally reviewed this study, and had reviewed and/or edited this written report and agrees with it. Electronically signed by: Hugo Andino M.D. Narrative 09/03/2018 1:53 PM CDT EXAMINATION: Lumbar spine 2 or 3 views HISTORY: Low back pain FINDINGS: 2 views of the lumbar spine are submitted for evaluation, without prior for comparison. Lumbar spine alignment is normal. ??Vertebral body heights and disc spaces are normal. Procedure Note Hugo Andino MD - 09/03/2018 EXAMINATION: Lumbar spine 2 or 3 views HISTORY: Low back pain FINDINGS: 2 views of the lumbar spine are submitted for evaluation, without prior for comparison. Lumbar spine alignment is normal. Vertebral body heights and disc spaces are normal. IMPRESSION: Normal lumbar spine evaluation. Dictated by: René Ruff M.D. The radiology attending physician has personally reviewed this study, and had reviewed and/or edited this written report and agrees with it. Electronically signed by: Hugo Andino M.D. David Ba MD IMG XR PROCEDURES Final R esult documented in this encounter Visit Diagnoses Diagnosis Back pain, unspecified back location, unspecified back pain laterality, unspecified chronicity documented in this encounter Care Teams Doctor Naturopathic Relationship Specialty Start Date End Date René Smallwood MD PCP - General Family Medicine 12/02/17 02/10/20 documented as of this encounter
--- OUTSIDE RECORDS SUMMARY | 2024-05-11 17:35 | XMS_ITS | Encounter Summary ---
Author Organization [facility] Address [address] [place] [address] Phone Care Team Providers Care Education Department Chair Name Role Phone René Smallwood MD Primary Care Provider [phone] [phone] Encounter Details Date Type Department Care Team (Late st Contact Info) Description 01/07/2019 Orders Only [facility] Orthopaedic Surgery [address] [facility] 2nd Floor [address] [place] [phone] David Ba MD [address] [place] [address] Social History Tobacco Use Types Packs/Day Years Used Date Smoking Tobacco: Former Cigarettes 0.5 25 0 05/27/1992 - 05/27/2017 Smokeless Tobacco: Never Alcohol Use Standard Drinks/Week Comments Yes 0 (1 standard drink = 0.6 oz pur e alcohol) social Comments No Sex and Gender Information Value Date Recorded Sex Assigned at Not on file 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
--- OUTSIDE RECORDS SUMMARY | 2024-05-11 17:35 | XMS_ITS | Encounter Summary ---
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 The [...] last revised on 2019. Testing performed by: [facility], [address] [place] [address] Nasopharyngeal 11/30/2019 1: 41 PM CDT 11/30/2019 5:35 PM CDT Narrative VINICIO LYON (MICHELE) - 12/01/2019 12:15 AM CDT Is the patient experiencing any symptoms consistent with COVID (eg. Fever, cough, shortness of breath)?->No What is the reason for testing?->Screening prior to scheduled (>12 hr) surgery or procedure Joseph Bianchi III, MD LAB MICROBIOLOGY - G ENERAL ORDERABLES Final Result VINICIO LYON (MICHELE) [address] [facility] Department [place] [address] documented in this encounter Visit Diagnoses Diagnosis Preoperative testing Unspecified pre-operative examination documented in this encounter Care Teams Car Greaser Relationship Specialty Start Date End Date René Smallwood MD PCP - General Family Medicine 12/02/17 02/10/20 documented as of this encounter
--- OUTSIDE RECORDS SUMMARY | 2024-05-11 17:35 | XMS_ITS | Encounter Summary ---
Author Organization [facility] Healthcare Address [address] [place] [address] Care Team Providers Care Pressroom Supervisor Name Role Phone René Smallwood MD Primary Care Provider [phone] [phone] Reason for Visit * Diagnostic Imaging (Routine) - Closed Specialty Diagnoses / Procedures Referred By Contac t Referred To Contact Diagnoses Aftercare following right knee joint replacement surgery Procedures XR Knee Right 3 Views David aB MD Phone: tel: fax: [address] [address] Referral ID Status Reason Start Date Expiration Date Visits Re quested Visits Authorized [id number] Closed 04/10/2018 10/20/2019 1 1 Encounter Details Date Type Department Care Team (Latest Contact Info) Description 04/11/2018 2:30 PM SCIENCE SPECIALIST Ancillary Procedure [facility] Imaging [address] [place] [address] David Ba MD [address] [address] Aftercare following right knee joint replacement surgery Discharge Disposition: Discharge to home or self [...] on file 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 ??Revision semiconstrained right total knee arthroplasty in near-anatomic position with persistent soft tissue swelling and knee joint effusion. Electronically signed by: Natalie Srivastava M.D. Narrative 04/11/2018 2:29 PM SCIENCE SPECIALIST EXAMINATION: Right knee 3 views HISTORY: ??Right [...] effusion. Electronically signed by: Natalie Srivastava M.D. us David Ba MD IMG XR PROCEDURES Final R esult documented in this encounter Visit Diagnoses Diagnosis Aftercare following right knee joint replacement surgery documented in this encounter Care Teams Pressroom Supervisor Relationship Specialty Start Date End Date René Smallwood MD PCP - General Family Medicine 12/02/17 02/10/20 documented as of this encounter
--- OUTSIDE RECORDS SUMMARY | 2024-05-11 17:35 | XMS_ITS | Encounter Summary ---
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 Gender Identity Not on file Sexual Orientation [...] Procedure Name Priority Date/Time Associated Diagnosis Comments MARIA EUGENIA IGG SEND OUT STAT 06/09/2018 11:3 0 AM DOLL EYE SETTER MARIA EUGENIA C3 SEND OUT STAT 06/09/2018 11:30 AM DOLL EYE SETTER MARIA EUGENIA SO STAT 06/09/2018 11:30 AM DOLL EYE SETTER ANTIBODY IDENTIFICATION SO STAT 06/09/2018 11:30 AM DOLL EYE SETTER AG TYPING SO STAT 06/09/2018 11:30 AM DOLL EYE SETTER ABO/RH STAT 06/09/2018 11:30 AM DOLL EYE SETTER Encounter for preadmission testing CROSSMATCH STAT 06/09/2018 11:30 AM DOLL EYE SETTER ANTIBODY SCREEN STAT 06/09/2018 11:30 AM DOLL EYE SETTER Encounter for preadmission testing TYPE AND SCREEN STAT 06/09/2018 11:30 AM DOLL EYE SETTER Encounter for preadmission testing documented in this encounter Results * Crossmatch (06/09/2018 11:30 AM DOLL EYE SETTER) Crossmatch Incompatible [facility]ER [facility] Unit number for crossmatch [id number] [facility] Crossmatch Compatible [facility] Unit number for crossmatch [id number] [facility] Crossmatch Compatible [facility] Unit number for crossmatch [id number] [facility] Blood specimen (specimen) 06/09/2018 11:30 AM DOLL EYE SETTER 06/09/2018 12:48 PM DOLL EYE SETTER Narrative [facility]ERNER [facility] - 06/19/2018 1:36 PM DOLL EYE SETTER us David Ba MD LAB BLOOD BANK TEST ORDER DALE Final Result [facility] [address] [facility] [place] [address] * AG Typing SO (06/09/2018 11:30 AM DOLL EYE SETTER) Antigen Typing Interpretation Ref Lab/Send Out c Positive [facility] Antigen Typing Interpretation Ref Lab/Send Out E Negative [facility] Antigen Typing Interpretation Ref Lab/Send Out e Positive [facility] Antigen Typing Interpretation Ref Lab/Send Out C Positive [facility] Blood specimen (specimen) 06/09/2018 11:30 AM DOLL EYE SETTER 06/09/2018 12:48 PM DOLL EYE SETTER Narrative VINICIO PACHECOWCH - 06/19/2018 12:46 PM DOLL EYE SETTER us David Ba MD LAB BLOOD BANK TEST ORDER DALE Final Result Performing Organization Address City/[facility] [address]/[facility] Co de Phone Number VINICIO VICK [address] [employer] [place] [address] * MARIA EUGENIA IgG Send Out (06/09/2018 11:30 AM DOLL EYE SETTER) MARIA EUGENIA IGG Interpretation Sendout/Reference Lab ARC [facility] MARIA EUGENIA IGG Interpretation Sendout/Reference Lab Positive [facility]ER [facility] Blood specimen (specimen) 06/09/2018 11:30 AM DOLL EYE SETTER 06/09/2018 12:48 PM DOLL EYE SETTER Narrative VINICIO PACHECOWCH - 06/10/2018 5:26 PM DOLL EYE SETTER us David Ba MD LAB BLOOD BANK TEST ORDER DALE Final Result Performing Organization Address [facility] [address]/[facility] de Phone Number VINICIO REYESCH [address] [employer] Department [employer] [place] [place] [address] * MARIA EUGENIA C3 Send Out (06/09/2018 11:30 AM DOLL EYE SETTER) MARIA EUGENIA C3 Interpretation Send Out/Reference Lab [facility] MARIA EUGENIA C3 Interpretation Send Out/Reference Lab Negative [facility]ER [facility] Blood specimen (specimen) 06/09/2018 11:30 AM DOLL EYE SETTER 06/09/2018 12:48 PM DOLL EYE SETTER Narrative VINICIO PACHECOWCH - 06/10/2018 5:26 PM DOLL EYE SETTER us David Ba MD LAB BLOOD BANK TEST ORDER DALE Final Result Performing Organization Address City/[facility] [address]/[facility] Co de Phone Number VINICIO REYESCH [address] [facility] [place] [address] * MARIA EUGENIA SO (06/09/2018 11:30 AM DOLL EYE SETTER) MARIA EUGENIA Interpretation Sendout/Reference Lab ARC CERNER [facility] MARIA EUGENIA Interpretation Sendout/Reference Lab Positive CERMILLI PACHECOWCH Blood specimen (specimen) 06/09/2018 11:30 AM DOLL EYE SETTER 06/09/2018 12:48 PM DOLL EYE SETTER Narrative VINICIO VICK - 06/10/2018 5:26 PM DOLL EYE SETTER David Ba MD LAB BLOOD BANK TEST ORDER DALE Final Result Performing Organization Address City/[facility] [address]/ZIP Co de Phone Number VINICIO REYESCH [address] [facility] [place] [address] * Antibody Identification SO (06/09/2018 11:30 AM DOLL EYE SETTER) Antibody ID Reference Lab/Send Out ARC VINICIO PACHECOWCH Antibody ID Reference Lab/Send Out Warm Autoantibody VINICIO PACHECOWAYDEE Blood specimen (specimen) 06/09/2018 11:30 AM DOLL EYE SETTER 06/09/2018 12:48 PM DOLL EYE SETTER Narrative VINICIO VICK - 06/19/2018 12:46 PM DOLL EYE SETTER David Ba MD LAB BLOOD BANK TEST ORDER DALE Final Result VINICIO PACHECOWCH [address] [facility] [place] [address] * Antibody screen (06/09/2018 11:30 AM DOLL EYE SETTER) Mavis, indirect, Gel Interpretation Positive VINICIO PACHECOWCH Blood specimen (specimen) 06/09/2018 11:30 AM DOLL EYE SETTER 06/09/2018 12:48 PM DOLL EYE SETTER Narrative VINICIO PACHECOWCH - 06/09/2018 1:04 PM DOLL EYE SETTER Pt is coming back for additional t/s sample. ??[facility] has been working on blood type screening and needs additional samples to complete processing. ??Ashleigh contacted Annamaria Ren in pretesting on 06/03/2018 requesting patient comeback for additional sampling. Pt will need 2 pink tops and 1 red top. ?? Surgery is 06/19/2018. Has the patient had Daratumumab (Darzalex) in the past 6 months?->No Annamaria Burk ADVERTISING MATERIAL DISTRIBUTOR LAB BLOOD BANK TEST ORDERAB LES Final Result Performing Organization Address [facility] [address] [facility] Co de Phone Number [facility] [address] [employer] Department [employer] [place], [place] [id number] * ABO/Rh (06/09/2018 11:30 AM DOLL EYE SETTER) ABO/Rh O Positive VINICIO VICK Blood specimen (specimen) 06/09/2018 11:30 AM DOLL EYE SETTER 06/09/2018 12:48 PM DOLL EYE SETTER Narrative VINICIO REYES - 06/09/2018 1:03 PM DOLL EYE SETTER Pt is coming back for additional t/s sample. ??[facility] has been working on blood type screening and needs additional samples to complete processing. ??Ashleigh contacted Annamaria F in pretesting on 06/03/2018 requesting patient comeback for additional sampling. Pt will need 2 pink tops and 1 red top. ?? Surgery is 06/19/2018. Has the patient had Daratumumab (Darzalex) in the past 6 months?->No us Annamaria Burk ADVERTISING MATERIAL DISTRIBUTOR LAB BLOOD BANK TEST ORDERAB LES Final Result Performing Organization Address [facility] [address]/[facility] de Phone Number VINICIO BJWCH [phone] [employer]. [facility] [employer] [place], [place] [id number] documented in this encounter Visit Diagnoses Diagnosis Encounter for preadmission testing documented in this encounter Care Teams Electromechanic Relationship Specialty Start Date End Date René Smallwood MD PCP - General Family Medicine 12/02/17 02/10/20 documented as of this encounter
--- OUTSIDE RECORDS SUMMARY | 2024-05-11 17:35 | XMS_ITS | Encounter Summary ---
Author Organization [facility] Address [address] [place] [address] Phone Care Team Providers Care Fitness Club Manager Name Role Phone René Smallwood MD Primary Care Provider [phone] [phone] Encounter Details Date Type Department Care Team (Latest Contact Info) Description [address] phone Call 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 Gender Identity Not on file Sexual Orientation Not on file Occupation Industry Job Start Date Job End Date unemployed Not on file Not on file Not on file documented as of this encounter Plan of Treatment Not on file documented as of this encounter Procedures Procedure Name Priority Date/Time Associated Diagnosis Comments PROTIME-INR Routine 07/10/2018 documented in this encounter Results * (ABNORMAL) Protime-INR (07/10/2018) INR 1.40(A) 0.9 - 1.1 [facility] PO[facility] LAB[facility]AT[facility] Blood specimen (specimen) us Ivone Mello CARDROOM ATTENDANT LAB BLOOD ORDERABLES Fin al Result [facility] documented in this encounter Visit Diagnoses Not on filedocumented in this encounter Care Teams Fitness Club Manager Relationship Specialty Start Date End Date René Smallwood MD PCP - General Family Medicine 12/02/17 02/10/20 documented as of this encounter
--- OUTSIDE RECORDS SUMMARY | 2024-05-11 17:35 | XMS_ITS | Encounter Summary ---
Author Organization [facility] Healthcare Address [address] [place] [address] Care Team Providers Care Wastewater Technician Name Role Phone René Smallwood MD Primary Care Provider [phone] Encounter Details Date Type Department Care Team (Late st Contact Info) Description 06/19/2018 1:15 PM FRESH FOODS CAKE DECORATOR - 06/19/2018 3:45 PM FRESH FOODS CAKE DECORATOR Surgery [facility] Operating Room [address] [place] [address] David Ba MD [address] [place] [address] REVISION ARTHROPLASTY LEFT TOTAL KNEE Surgery Details Date/Time Status Location OR Service Patient Class Case Class Case Type Trauma Case? 06/19/2018 1:15 PM Posted [facility] OPERATING ROOM MOR3 Orthopaedics Surgery Admit Elective Panel 1 Procedure LRB Anes Op Region Wound Class Comments REVISION ARTHROPLASTY LEFT TOTAL KNEE Left Spinal Kn ee Class I - Clean Surgeon Surgeon Role Service Panel David Ba MD Primary Orthopaedics 1 Jeff Alicea MD Fellow Orthopaedic s 1 documented in this encounter Social History [...] on file Legal Sex Female 11:20 AM FRESH FOODS CAKE DECORATOR Gender Identity Not on file Sexual Orientation Not on file Occupation Industry Job Start Date Job End Date unemployed Not on file Not on file Not on file documented as of this encounter Last Filed Vital Signs Vital Sign Reading Time Taken Comments Blood Pressure 133/75 06/19/2018 11:20 AM FRESH FOODS CAKE DECORATOR Pulse 94 06/19/2018 11:20 AM FRESH FOODS CAKE DECORATOR Temperature 36.8 ??C (98.2 ??F) 06/19/2018 11:[address] Respiratory Rate 20 06/19/2018 11:20 AM FRESH FOODS CAKE DECORATOR Oxygen Saturation 97% 06/19/2018 11:20 AM FRESH FOODS CAKE DECORATOR Inhaled Oxygen Concentration - - Weight 81.6 kg (180 lb) 06/19/2018 11:20 AM FRESH FOODS CAKE DECORATOR Height 154.9 cm (5' 1 ) 06/19/2018 11:20 AM FRESH FOODS CAKE DECORATOR Body Mass Index 34.01 06/19/2018 11:20 AM FRESH FOODS CAKE DECORATOR documented in this encounter Discharge Summaries * Kaci Thomas, CAP JEWEL PLATE ASSEMBLER - 06/20/2018 7:58 AM CST Inpatient Discharge Summary Admitting Provider: David Ba MD Discharge Provider: David Ba MD Primary Care Physician at Discharge: René Smallwood MD [phone] Admission Date: 06/19/2018 Discharge Date: 06/20/2018 Primary [...] health care on06/20/2018. Discharge Medications: Marnie Roque Suzanne Home Medication Instructions HANNY:[id number] Printed on:06/20/18 6432 Medication Information diazePAM (VALIUM) 5 mg tablet [...] Ba on 07/16/18 at 1:00PM at 969: [facility], [address] [place] [address], [place] [address]. Condition on Discharge: Stable Cosigned by David Ba MD at 06/20/2018 6:14 PM FRESH FOODS CAKE DECORATOR H FOODS CAKE DECORATOR H FOODS CAKE DECORATOR documented in this encounter Discharge Instructions * Discharge Instructions* Kaci Thomas NP - 06/20/2018 7:58 AM FRESH FOODS CAKE DECORATOR Stop taking Mobic, Aspirin and using essential oils for 30 days while you are on Coumadin. H FOODS CAKE DECORATOR * Discharge Instr - Other Orders* Va Daniel RN - 06/20/2018 8:45 AM FRESH FOODS CAKE DECORATOR Patient will dc home with [facility] RN/PT. Please call [phone] with questions. H FOODS CAKE DECORATOR documented in this encounter Medications at Time [...] : Procedure(s): REVISION ARTHROPLASTY LEFT TOTAL KNEE H FOODS CAKE DECORATOR Source Note - Annamaria Burk NP - 05/30/2018 3:14 PM FRESH FOODS CAKE DECORATOR Center for Preoperative Assessment and Planning Preoperative Evaluation Record [facility] at [facility] ([facility]) Date: 05/30/18 Anesthesia Evaluation Marnie Roque [...] Cardiovascular Pertinent negatives: hypertension ; CAD ; ME ; CABG ; valve replacement; atrial fibrillation; [...] in place. Please call the CPAP attending ([phone]) with any questions. . Follow up note [...] Medication protocol when under care of a KNOTTING MACHINE OPERATOR PORTABLE Planned anesthesia: Regional for postop pain per [...] and agree to proceed. All questions answered. H FOODS CAKE DECORATOR H FOODS CAKE DECORATOR H FOODS CAKE DECORATOR H FOODS CAKE DECORATOR H FOODS CAKE DECORATOR H FOODS CAKE DECORATOR * Jeff Alicea MD - 06/19/2018 11:08 AM CST I have reviewed the H&P, examined the patient, and endorse the findings as written. Plan of Care : Based on the above findings, I consider Marnie Roque to be an acceptable risk for : Procedure(s): REVISION ARTHROPLASTY LEFT TOTAL KNEE Jeff Alicea MD Fellow - [facility] in [place] Joint Preservation, Resurfacing, and Reconstruction Department of Orthopaedic Surgery Cosigned by David Ba MD at 06/20/2018 6:14 PM FRESH FOODS CAKE DECORATOR H FOODS CAKE DECORATOR H FOODS CAKE DECORATOR Source Note - Annamaria Burk, CAP JEWEL PLATE ASSEMBLER - 05/30/2018 3:14 PM FRESH FOODS CAKE DECORATOR Center for Preoperative Assessment and Planning Preoperative Evaluation Record [facility] at [facility] ([facility]) Date: 05/30/18 Anesthesia Evaluation Marnie Roque [...] Cardiovascular Pertinent negatives: hypertension ; CAD ; ME ; CABG ; valve replacement; atrial fibrillation; [...] in place. Please call the CPAP attending ([phone]) with any questions. . Follow up note [...] blood does not need to come from [facility] but does need to be a full [...] labs within last 720 hours. Anesthesia Plan H FOODS CAKE DECORATOR H FOODS CAKE DECORATOR H FOODS CAKE DECORATOR H FOODS CAKE DECORATOR H FOODS CAKE DECORATOR documented in this encounter Miscellaneous Notes * [...] instructions provided as well. Rachael Dowell RN H FOODS CAKE DECORATOR * Plan of Care - Va Daniel RN - 06/20/2018 8:45 AM CST Patient will dc home with [facility] RN/PT. Please call [phone] with questions. H FOODS CAKE DECORATOR * Plan of Care - Aakash Engle [...] for impaired skin integrity will decrease Progressing H FOODS CAKE DECORATOR * Plan of Care - Suzan Rod RN - 06/19/2018 5:23 [...] pain control Summary: admit to nursing unit H FOODS CAKE DECORATOR * Perioperative Nursing Note - Melissa Jorge RN - 06/19/2018 3:14 PM FRESH FOODS CAKE DECORATOR REMOVAL OF PREVIOUS TOTAL KNEE FEMORAL, TIBIAL AND POLY H FOODS CAKE DECORATOR * Brief Op Note - Jeff Alicea MD - 06/19/2018 2:05 PM FRESH FOODS CAKE DECORATOR Operative Progress Note Attending Surgeon: David Ba MD Surgical Team: Editor Publications: Jaelyn Nelson RN; Melissa Jorge RN Scrub: [facility] SPRINKLER INSPECTOR: Sachi Gould SPRINKLER INSPECTOR DATE OF SURGERY : 06/19/2018 Preoperative Diagnosis: Pre-op Diagnosis * Mechanical loosening of internal left knee prosthetic joint, initial encounter ([facility]) [T84.033A] Postoperative Diagnosis: Post-op Diagnosis * Mechanical loosening of internal left knee prosthetic joint, initial encounter ([facility]) [T84.033A] Procedure: Procedure(s): REVISION ARTHROPLASTY LEFT TOTAL KNEE Operative Findings: Left TKA malalignment Estimated Blood Loss: 400 mL Specimens: No specimen collected in procedure Implants: Implant Name Type Inv. Item Serial No. Grill Prep Cook Lot No. [id number] No. Used [employer] [id number] ATTUNE 4MM REVISION CEMENT KNEE POSTERIOR 5 AUGMENT FEMORAL LATEX FREE - [id number] [employer] [id number] ATTUNE 4MM REVISION CEMENT KNEE POSTERIOR 5 AUGMENT FEMORAL LATEX FREE [employer] [id number] Left 1 [employer] [id number] ATTUNE 4MM REVISION CEMENT KNEE POSTERIOR 5 AUGMENT FEMORAL LATEX FREE - [id number] [employer] [id number] ATTUNE 4MM REVISION CEMENT KNEE POSTERIOR 5 AUGMENT FEMORAL LATEX FREE [employer] [id number] Left 1 [employer] [id number] REVISION CEMENT CONSTRAIN KNEE LEFT 5 COMPONENT FEMORAL ATTUNE - [id number] [employer] [id number] REVISION CEMENT CONSTRAIN KNEE LEFT 5 COMPONENT FEMORAL ATTUNE [employer] [id number] Left 1 [employer] [id number] ATTUNE REVISION CEMENT ROTATE PLATFORM KNEE 4 BASEPLATE TIBIAL - [id number] [employer] [id number] ATTUNE REVISION CEMENT ROTATE PLATFORM KNEE 4 BASEPLATETIBIAL [employer] [id number] Left 1 [employer] [id number] ATTUNE OD12 MM L60 MM REVISION PRESS FIT KNEE STEM FEMORAL STERILELATEX FREE - [id number] [employer] [id number] ATTUNE OD12 MM L60 MM REVISION PRESS FIT KNEE STEM FEMORAL STERILE LATEX FREE [employer] [id number] Left 1 [employer] [id number] ATTUNE 16MM 60MM REVISION PRESS FIT KNEE STEM FEMORAL STERILE LATEX FREE - [id number] [employer] [id number] ATTUNE 16MM 60MM REVISION PRESS FIT KNEE STEM FEMORAL STERILE LATEX FREE [employer] [id number] Left 1 [employer] [id number] ATTUNE 4MM REVISION CEMENT KNEE DISTAL 5 AUGMENT FEMORAL STERILE LATEX FREE - [id number] [employer] [id number] ATTUNE 4MM REVISION CEMENT KNEE DISTAL 5 AUGMENT FEMORAL STERILE LATEX FREE [employer] [id number] Left 1 [employer] [id number] [employer]IUM VISCOSITY CEMENT 40GM BONE STERILE - [id number] [employer] [id number] [employer] VISCOSITY CEMENT 40GM BONE STERILE [employer] [id number] Left 1 [employer] [id number] [employer] VISCOSITY CEMENT 40GM BONE GENTAMICIN - [id number] [employer] INC [id number] [employer]IUM VISCOSITY CEMENT 40GM BONE GENTAMICIN [employer] [id number] Left 1 [employer] [id number] ATTUNE H14 MM REVISION CONSTRAIN ROTATE PLATFORM KNEE 5 INSERT TIBIAL AOX STERILE - [id number] [employer] [id number] ATTUNE H14 MM REVISION CONSTRAIN ROTATE PLATFORM KNEE 5 INSERT TIBIAL AOX STERILE [employer] [id number] Left 1 Complications: None Condition on Discharge from the operating room was stable Jeff Alicea MD Date: 06/19/2018 Time: 4:14 PM No Resident involved on case H FOODS CAKE DECORATOR * Op Note - David Ba MD - 06/19/2018 12:00 AM CST Attending Surgeon David Ba M.D. Acquisition Consultant Jeff Alicea M.D. Second Mold Holder Sachi Gould Preoperative Diagnosis Failed left total [...] prepare for the implant. We used a [employer] revision knee system using intramedullary guidance to [...] of the procedure. Job ID/VF Job ID: [id number] H FOODS CAKE DECORATOR documented in this encounter Plan of Treatment Not on file documented as of this encounter Procedures Procedure Name Priority Date/Time Associated Diagnosis Comments EGFR Routine 06/20/2018 3:46 AM FRESH FOODS CAKE DECORATOR PROTIME-INR Routine 06/20/2018 3:46 AM FRESH FOODS CAKE DECORATOR CBC WITHOUT DIFFERENTIAL Routine 06/20/2018 3:46 AM FRESH FOODS CAKE DECORATOR BASIC METABOLIC PANEL Routine 06/20/2018 3:46 AM FRESH FOODS CAKE DECORATOR PROTIME-INR STAT 06/19/2018 5:48 PM FRESH FOODS CAKE DECORATOR XR KNEE LEFT 1 OR 2 VIEWS STAT 06/19/2018 4:15 PM FRESH FOODS CAKE DECORATOR REVISION ARTHROPLASTY TOTAL KNEE 06/19/2018 1:43 PM FRESH FOODS CAKE DECORATOR Mechanical loosening of internal left knee prosthetic joint, initial encounter ([facility]) PREPARE RBC Timed 06/19/2018 12:00 PM FRESH FOODS CAKE DECORATOR documented in this encounter Results * eGFR (06/20/2018 3:46 AM FRESH FOODS CAKE DECORATOR) eGFR >60 mL/min/1.7 3 m2 VINICIO VICK Comment: Interpretive Data Reference Interval Normal ?>/= 90 mL/min/1.73m2 Mildly decreased* ? 60 - 89 mL/min/1.73m2 Mildly to moderately decreased ?45 - 59 mL/min/1.73m2 Moderately to severely decreased ??30 - 44 mL/min/1.73m2 Severely decreased ?15 - 29 mL/min/1.73m2 Kidney Failure ?< 15 ??mL/min/1.73m2 *Relative to young adult level If -Ken[place] multiply value by 1.16. Estimated glomerular filtration [...] 2015. Blood specimen (specimen) 06/20/2018 3:46 AM FRESH FOODS CAKE DECORATOR 06/20/2018 5:17 AM FRESH FOODS CAKE DECORATOR Narrative VINICIO VICK - 06/20/2018 5:56 AM FRESH FOODS CAKE DECORATOR us David Ba MD LAB BLOOD ORDERABLES Graciela quinteros Result [facility] [address] [facility]. Department [place] [address] * (ABNORMAL) Protime-INR (06/20/2018 3:46 AM FRESH FOODS CAKE DECORATOR) PT 15.5(H) 11.5 - 14.0 sec VINICIO [...] 2014. Blood specimen (specimen) 06/20/2018 3:46 AM FRESH FOODS CAKE DECORATOR 06/20/2018 5:17 AM FRESH FOODS CAKE DECORATOR Narrative VINICIO REYESCH - 06/20/2018 5:35 AM FRESH FOODS CAKE DECORATOR David Ba MD LAB BLOOD ORDERABLES Graciela l Result Performing Organization Address [facility] Co de Phone Number VINICIO VICK [address] [employer] [place], [place] [id number] * (ABNORMAL) CBC without differential (06/20/2018 3:46 AM FRESH FOODS CAKE DECORATOR) Pathologist [facility] WBC 13.9(H) 3.8 - 9.9 K/cumm [facility] Hgb 11.6(L) 11.9 - 15.5 g/dL [facility] Hct 36.7 35.6 - 45.5 % [facility] Plt 274 150 - 400 K/cumm [facility] MPV 12.3 9.1 - 12.3 fL [facility] RBC 4.00 3.90 - 5.20 M/cumm [facility] MCV 91.8 81.3 - 96.4 fL [facility] MCH 29.0 27.1 - 33.3 pg [facility] MCHC 31.6(L) 32.3 - 35.7 g/dL [facility] RDW CV 13.6 11.1 - 14.9 % [facility] RDW SD 46.2 35.7 - 48.1 fL [facility] NRBC abs 0.00 0.00 - 0.01 K/cumm [facility] Blood specimen (specimen) 06/20/2018 3:46 AM FRESH FOODS CAKE DECORATOR 06/20/2018 5:17 AM FRESH FOODS CAKE DECORATOR Narrative VINICIO REYESCH - 06/20/2018 5:21 AM FRESH FOODS CAKE DECORATOR David Ba MD LAB BLOOD ORDERABLES Graciela l Result Performing Organization Address [facility] Co de Phone Number VINICIO VICK [address] [employer]. [facility] [employer] [address] * Basic metabolic panel (06/20/2018 3:46 AM FRESH FOODS CAKE DECORATOR) Sodium 142 135 - 145 mmol/L [facility] Potassium, pl 4.3 3.3 - 4.9 mmol/L [facility] Chloride 105 97 - 110 mmol/L [facility] CO2 22 22 - 32 mmol/L [facility] Anion gap 15 2 - 15 mmol/L [facility] BUN 14 8 - 25 mg/dL [facility] Creatinine 0.60 0.60 - 1.10 mg/dL [facility] Glucose 159 70 - 199 mg/dL [facility] Comment: Interpretive Data Fasting glucose >/= 126 [...] 2017. Calcium 9.4 8.5 - 10.3 mg/dL [facility] Blood specimen (specimen) 06/20/2018 3:46 AM FRESH FOODS CAKE DECORATOR 06/20/2018 5:17 AM FRESH FOODS CAKE DECORATOR Narrative [facility] - 06/20/2018 5:56 AM FRESH FOODS CAKE DECORATOR David Ba MD LAB BLOOD ORDERABLES Graciela l Result [facility] [address] [facility]. Department [place] [address] * (ABNORMAL) Protime-INR (06/19/2018 5:48 PM FRESH FOODS CAKE DECORATOR) PT 14.8(H) 11.5 - 14.0 sec [facility] INR 1.2(H) 0.9 - 1.1 [facility] Comment: Interpretive Data ORTHOPEDIC Total Hip and [...] 2014. Blood specimen (specimen) 06/19/2018 5:48 PM FRESH FOODS CAKE DECORATOR 06/19/2018 5:56 PM FRESH FOODS CAKE DECORATOR Narrative [facility] - 06/19/2018 6:17 PM FRESH FOODS CAKE DECORATOR us Ry Atkins MD LAB BLOOD ORDERABLES Final Result VINICIO [facility] [address] [facility]. Department [place] [address] * XR Knee Left 1 or 2 View (06/19/2018 4:15 PM FRESH FOODS CAKE DECORATOR) Anatomical Region Laterality Modality Lower Extremities, Knee Left Computed Radiography 06/19/2018 4:21 PM FRESH FOODS CAKE DECORATOR Impressions 06/19/2018 4:21 PM FRESH FOODS CAKE DECORATOR 1. New revision of a left total knee arthroplasty. Electronically signed by: Leon Carlton M.D. Narrative 06/19/2018 4:21 PM FRESH FOODS CAKE DECORATOR EXAMINATION: Left knee 1 or 2 views [...] Prepare RBC: 2 Units (06/19/2018 12:00 PM FRESH FOODS CAKE DECORATOR) Units requested 2 VINICIO REYESCH Units requested Ready VINICIO VICK Blood specimen (specimen) 06/19/2018 12:00 PM FRESH FOODS CAKE DECORATOR 06/19/2018 12:17 PM FRESH FOODS CAKE DECORATOR Narrative VINICIO VICK - 06/19/2018 7:17 PM FRESH FOODS CAKE DECORATOR Specify Procedure:->left knee revision Are special requirements needed? (all products are leukoreduced)->No us Ginette Barnett NP BLOOD BANK PRODUCT ORDERABLE S Final Result [facility] [address] [facility]. Department of Laboratories [place], [place] [id number] documented in this encounter Visit Diagnoses Diagnosis 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)- Primary Aftercare following knee joint replacement surgery, unspecified laterality Anticoagulation monitoring, special range Encounter for long-term (current) use of anticoagulants Mechanical loosening of internal left knee prosthetic joint, initial encounter ([facility]) Migraine Migraine, unspecified, without mention of intractable migraine without mention of status migrainosus Anxiety Anxiety state, unspecified Depression Depressive disorder, not elsewhere classified Hypothyroidism Unspecified hypothyroidism Mechanical loosening of internal left knee prosthetic joint, initial encounter ([facility]) documented in this encounter Admitting Diagnoses Diagnosis 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) documented in this encounter Administered Medications Inactive Administered Medications - up to 3 most recent administrations Medication Order MAR Action Action Date Dose Rate Site bupivacaine-EPINEPHrine (MARCAINE with EPI) 30 mL, ketorolac (TORADOL) 30 mg solution As needed, Starting on Nadya 06/19/18 at 1406, Intra-Op Given 06/19/2018 2:06 PM FRESH FOODS CAKE DECORATOR 60 mL Surgical Site ceFAZolin (ANCEF) 3,000 mg in sodium chloride 0.9 % 3,000 mL irrigation solution 3,000 mg, irrigation, Once, On Nadya 06/19/18 at 1200, For 1 dose, Intra-Op, Have ready for intra-op administration. Given 06/19/2018 2:06 PM FRESH FOODS CAKE DECORATOR 3,000 mg Surgical Site HYDROmorphone (DILAUDID) injection 0.2 mg 0.2 mg, intravenous, Administer over 2 Minutes, Every 4 hours PRN, 2nd line for pain, Starting on Nadya 06/19/18 at 1711, May administer 1 hour after second dose of 1st line analgesic agent for uncontrolled or increasing pain., Indications: PainIndications:Pain Given 06/19/2018 6:16 PM FRESH FOODS CAKE DECORATOR 0.2 mg ondansetron (ZOFRAN) injection 4 mg 4 mg, [...] interval., Indications: PainIndications:Pain Given 06/20/2018 7:21 AM FRESH FOODS CAKE DECORATOR 1 tablet Given 06/20/2018 3:43 AM FRESH FOODS CAKE DECORATOR 1 tablet Given 06/19/2018 11:17 PM FRESH FOODS CAKE DECORATOR 1 tablet senna-docusate (PERICOLACE) 8.6-50 mg per tablet 2 tablet 2 tablet, oral, 2 times daily, First dose on Nadya 06/19/18 at 2100, Hold for diarrhea., Indications: constipationIndications:constipa tion Given 06/19/2018 8:34 PM FRESH FOODS CAKE DECORATOR 2 tablets sodium chloride 0.9% flush 0.5-20 mL 0.5-20 mL, intra-catheter, As needed, line care, Starting on Nadya 06/19/18 at 1711, Flush volume based on line type and size. Flush before and after each use. Given 06/20/2018 3:44 AM FRESH FOODS CAKE DECORATOR 10 mL sodium chloride 0.9% infusion 100 mL/hr, intravenous, Continuous, Starting on Nadya 06/19/18 at 1745, Phase I & Post-op Floor New Bag 06/19/2018 5:16 PM FRESH FOODS CAKE DECORATOR 100 mL/hr 100 mL/hr warfarin (COUMADIN) tablet 5 mg 5 mg, oral, Daily (for warfarin), First dose on Nadya 06/19/18 at 1800, 2.2, Target INR: 2 - 3, Indications: VTE ProphylaxisIndications:VTE Prophylaxis Given 06/19/2018 7:16 PM FRESH FOODS CAKE DECORATOR 5 mg documented in this encounter Discontinued [...] Recently Administered Medications Times are shown in FRESH FOODS CAKE DECORATOR. Scheduled Medication Order 06/18/2018 06/19/2018 06/20/2018 ceFAZolin (ANCEF) 2000 mg/20 mL in sterile water (premix) 2,000 mg (COMPLETED) 2,000 mg, intravenous, at 400 mL/hr, Administer over 3 Minutes, Every 8 hours, First dose on Nadya 06/19/18 at 2100, For 2 doses, Beginning 8 hours after last veronika-operative dose., Indications: Prophylaxis, Surgical 2033 (New Bag - Provider: Aakash Engle RN) 034 (New Bag - Provider: Aakash Engle RN) ceFAZolin (ANCEF) 3,000 mg in sodium chloride 0.9 % 3,000 mL irrigation solution (COMPLETED) 3,000 mg, irrigation, Once, On Nadya 06/19/18 at 1200, For 1 dose, Intra-Op, Have ready for intra-op administration. 1406 (Given - Provider: David Ba MD)1744 (Not Given - Provider: Suzan Rod RN - Reason: Other - Comment: due at [...] Vomiting 1755 (Not Given - Provider: Suzan Rod, TAL - Reason: Other) senna-docusate (PERICOLACE) 8.6-50 mg per tablet 2 tablet 2 tablet, oral, 2 times daily, First dose on Nadya 06/19/18 at 2100, Hold for diarrhea., Indications: constipation 2033 (Given - Provider: Aakash Engle, TAL) 0839 (Not Given - Provider: Rachael Dowell, TAL - Reason: Patient/family refused) sodium chloride 0.9% flush 0.5-20 mL 0.5-20 mL, intra-catheter, Every 8 hours scheduled, First dose on Nadya 06/19/18 at 1745, Flush volume based on line type and size. 1916 (Not Given - Provider: Suzan Rod, TAL - Reason: Other)2206 (Not Given - Provider: Aakash Engle RN [...] INR: 2 - 3, Indications: VTE Prophylaxis 191 (Given - Provider: Suzan Rod RN) Continuous Medication Order 06/18/2018 06/19/2018 06/20/2018 Lactated Ringer's (LR) infusion (CANCELED) 30 mL/hr, intravenous, Continuous, Starting on Nadya 06/19/18 at 1200, Pre-Op 1322 (New Bag - Provider: Dillon Argueta RN)1450 (New Bag - Provider: Rebel Leyva CRNA)1556 (Continued from OR - Provider: Paul Avery, RN) Lactated Ringer's (LR) infusion 125 mL/hr, intravenous, Continuous, Starting on Nadya 06/19/18 at 1630, Phase I 1716 (Stopped - Provider: Suzan Rod, RN)1717 (Stopped - Provider: Suzan Rod, RN) sodium chloride 0.9% infusion 100 mL/hr, intravenous, Continuous, Starting on Nadya 06/19/18 at 1745, Phase I & Post-op Floor 1716 (New Bag - Provider: Suzan Rod, TAL) 0343 (Stopped - Provider: Aakash Engle, TAL) PRN Medication Order 06/18/2018 06/19/2018 06/20/2018 bupivacaine-EPINEPHrine [...] for uncontrolled or increasing pain., Indications: Pain 181 (Given - Provider: Suzan Rod, TAL) ondansetron (ZOFRAN) injection 4 mg(Linked Group 2) [...] Indications: Pain 1730 (Given - Provider: Suzan Rod, TAL)1747 (Given - Provider: Suzan Rod RN)2227 (Given [...] Ordered Date acetaminophen (TYLENOL) tablet 500 mg 1 acetaminophen (TYLENOL) tablet 650 mg 1 ceFAZolin (ANCEF) 1 gram/10 mL in sterile water (premix) 2,000 mg 1 06/19/2018 ceFAZolin (ANCEF) 2000 mg/20 mL in sterile water (premix) 2,000 mg 1 06/19/2018 celecoxib (CeleBREX) capsule 200 mg 1 06/19 dexamethasone (DECADRON) injection 8 mg 1 0 06/19/2018 diphenhydrAMINE (BENADRYL) i njection 12.5 mg 1 06/19/2018 fentaNYL (SUBLIMAZE) preserv ative free injection 100 mcg 1 06/19/2018 fentaNYL (SUBLIMAZE) preserv ative free injection 25 mcg 1 06/19/2018 hydrALAZINE (APRESOLINE) injection 5 mg 1 0 06/19/2018 HYDROcodone-acetaminophen (N ORCO) 5-325 mg per tablet 1 tablet 1 06/19/2018 HYDROmorphone (DILAUDID) injection 0.2 mg 2 06/19/2018 ketorolac (TORADOL) injection 30 mg 1 06/19 Lactated Ringer's (LR) bolus 1,000 mL Lactated Ringer's (LR) infusion 2 9 lidocaine PF (XYLOCAINE) 10 mg/mL (1 %) preservative free injection 50 mg 1 06/19/2018 meperidine (DEMEROL) preserv ative free injection 12.5 mg 1 06/19/2018 metoprolol (LOPRESSOR) injection 1 mg 1 midazolam (VERSED) injection 4 mg 1 019 ondansetron (ZOFRAN) injection 4 mg 2 06/19 ondansetron ODT (ZOFRAN-ODT) disintegrating tablet 4 mg 1 06/19/2018 oxyCODONE-acetaminophen (PER COCET) 5-325 mg per tablet 1 tablet 1 06/19/2018 polyethylene glycol (MIRALAX) packet 17 g 1 06/19/2018 prochlorperazine (COMPAZINE) injection 5 mg 1 06/19/2018 ropivacaine (NAROPIN) 2 mg/m L (0.2 %) preservative free injection 240 mg 1 06/19/2018 ropivacaine (NAROPIN) 5 mg/m L (0.5 %) preservative free injection 300 mg 1 06/19/2018 scopolamine patch 72 hour 1 patch 1 019 senna-docusate (PERICOLACE) 8.6-50 mg per tablet 2 tablet 1 06/19/2018 sodium chloride 0.9% flush 0.5-20 mL 3 05/28 sodium chloride 0.9% infusion 1 06/19/2018 tranexamic acid (CYKLOKAPRON ) 1000 mg in 0.9% sodium chloride 100 mL (simple) 2 06/19/2018 vancomycin (VANCOCIN) 1,500 mg in sodium chloride 0.9% 250 mL IVPB 1 06/19/2018 vancomycin 1500 mg/250 mL in sodium chloride 0.9% (premix) 1,500 mg 1 06/19/2018 warfarin (COUMADIN) tablet 5 mg 9 General Supply Count Last Ordered Date First [...] 06/19/20182018 documented in this encounter Care Teams Wastewater Technician Relationship Specialty Start Date End Date René Smallwood MD PCP - General Family Medicine 12/02/17 02/10/20 documented as of this encounter
--- OUTSIDE RECORDS SUMMARY | 2024-05-11 17:35 | XMS_ITS | Encounter Summary ---
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 David Ba MD Phone: tel: fax: [facility] (All Locations) Referral ID Status Reason Start Date Expiration Date Visits Re quested Visits Authorized [id number] Closed 12/10/2018 06/20/2020 1 1 Encounter Details Date Type Department Care Team (Latest Contact Info) Description 12/24/2018 1:45 PM CDT Procedure visit [facility] Neurological Testing [address] [facility] 6th [place] [address] [place] [address] Hx of total knee replacement, bilateral Social History Tobacco Use Types Packs/Day Years Used Date Smoking Tobacco: Former Cigarettes 0.5 25 0 05/27/1992 - 05/27/2017 Smokeless Tobacco: Never Alcohol Use Standard Drinks/Week Comments Yes 0 (1 standard drink = 0.6 oz pur e alcohol) social Comments No Sex and Gender Information Value Date Recorded Sex Assigned at Not on file Legal Sex Female 11:20 AM SPINNING FRAME FIXER Gender Identity Not on file Sexual Orientation Not on file Occupation Industry Job Start Date Job End Date unemployed Not on file Not on file Not on file documented as of this encounter Procedure Notes * Rebel Gutierrez MD - 12/24/2018 1:45 PM CDT Images from the original note were not included. Procedures [facility] DEPARTMENT OF NEUROLOGY NEUROMUSCULAR ELECTRODIAGNOSTIC LABORATORY CLINICAL ELECTROMYOGRAPHY REPORT Patient: Marnie Roque Birthdate: 1965 Study No: [id number] MRN No: [id number] Referring M.D.: David Ba MD Date of Study: 12/24/2018 Examined by: Rebel Gutierrez MD REASON FOR REFERRAL: This is a 53-year-old woman with persistent pain in the left leg. A study is requested to evaluate for cause of leg pain. SUMMARY OF FINDINGS: 1. The left peroneal motor NCS is normal. 2. The left tibial motor NCS is normal. 3. The left radial antidromic sensory NCS is normal. 4. The left sural antidromic sensory NCS is normal. 5. The right sural antidromic sensory NCS is normal. 6. The right tibial H reflexes are normal. 7. The left tibial H reflexes are somewhat poorly formed and mildly delayed relative to the right side, although within normal absolute limits. 8. Needle EMG was normal in the following five muscles of the left lower extremity: Gluteus medius,vastus medialis, vastus lateralis, tibialis anterior, and medial gastrocnemius. Temperature was maintained above 32??C in the hand and above 30??C in the foot for all NCSs. CONCLUSION/INTERPRETATION: This is a largely normal study of the left lower extremity, specifically providing no clear electrodiagnostic support for a large fiber polyneuropathy or mononeuropathy. The left tibial H reflex is mildly abnormal compared to the right side; as an isolated finding, this is of uncertain significanceand could represent technical error. However, a mild radiculopathy at S1 cannot entirely be excluded, despite the negative needle EMG findings. Correlation with lumbar spine imaging may be helpful ifclinically indicated. Rebel Gutierrez MD Electromyographer Steven. By signing this report, the attending Electromyographer certifies that he/she personally reviewed the electrodiagnostic study and edited the report to fully conform with his/her intent. Abbreviations : CMAP = compound muscle action potential SNAP = sensory nerve action potential CNAP = compound nerve action potential MUP = motor unit potential Fib = fibrillation PSW = positive sharp wave NCS = nerve conduction study RNS = repetitive nerve stimulation Inquiries regarding study/report - call . Appointments - call . Fax no.: . Our correspondence address : [address], [address] [facility] Neurology, EMG Lab [place], [place] Data Report Full Name: Marnie Roque Gender: Female Date of : 1965 Visit Date: 12/24/2018 14:38 Age: 53 Years 5 Months Old Examining Physician: Brenda Referring Physician: Mejia Height: 5 feet 1 inch MNC Nerve / Sites Latency Amplitude Segments Distance Lat Diff Velocity ms mV mm ms m/s L Peroneal - EDB Ankle 3.13 5.8 Ankle - EDB 100 Fib head 9.17 5.6 Fib head - Ankle 280 6.04 46.3 Pop fossa 10.63 5.7 Pop fossa - Fib head 100 1.46 68.6 Pop fossa - Ankle 7.50 L Tibial - AH Ankle 3.02 16.5 Ankle - AH 100 Pop fossa 10.63 9.1 Pop fossa - Ankle 330 7.60 43.4 SNC Nerve / Sites Onset Lat Peak Lat Amplitude OnsetDiff Distance Cond Colby ms ms ??V ms mm m/s L Radial - Anatomical snuff box (Forearm) Forearm 1.5 2.0 34 1.5 100 69 R Sural - Ankle (Calf) Calf 2.7 3.4 22 2.7 140 52 L Sural - Ankle (Calf) Calf 2.8 3.4 17 2.8 140 50 H Reflex Nerve H Lat Lat Hmax ms ms L Tibial - Soleus 28.8 31.0 R Tibial - Soleus 28.1 28.0 Summary Insertional Spontaneous MUAP Comments Muscle Nerve Roots Activity Fib PSW Fasc Other Dur. Amp Poly Recruit Activate Comments L. Vastus medialis Femoral L2-L4 Normal None None None . Normal Normal None Red Act Sub Max . L. Vastus lateralis Femoral L2-L4 Normal None None None . Normal Normal None Red Act Sub Max . L. Tibialis anterior Deep peroneal (Fibular) L4-L5 Normal None None None . Normal Normal None Red Act Sub Max . L. Gastrocnemius (Medial head) Tibial S1-S2 Normal None None None . Normal Normal None Red Act Sub Max . L. Gluteus medius Superior gluteal L4-S1 Normal None None None . Normal Normal None Normal Normal . documented in this encounter Plan of Treatment Not on file documented as of this encounter Visit Diagnoses Diagnosis Hx of total knee replacement, bilateral documented in this encounter Orders Imaging Orders Without Results Count Last Order ed Date First Ordered Date EMG/NCV 1 12/24/2018 documented in this encounter Care Teams Manufacturing Project Engineer Relationship Specialty Start Date End Date René Smallwood MD PCP - General Family Medicine 12/02/17 02/10/20 documented as of this encounter
--- OUTSIDE RECORDS SUMMARY | 2024-05-11 17:35 | XMS_ITS | Encounter Summary ---
Author Organization [facility] Address [address] [place] [address] Phone Care Team Providers Care Cattle Dealer Name Role Phone René Smallwood MD Primary Care Provider [phone] [phone] Encounter Details Date Type Department Care Team (Latest Contact Info) Description 06/24/2018 Anticoagulation Tele phone Call [facility] Orthopaedic Surgery [address] [place] [address] 1st [address] [place] [id number] Madonna Rodgers RN Social History Tobacco Use Types Packs/Day Years Used Date Smoking Tobacco: Former Cigarettes 0.5 25 0 05/27/1992 - 05/27/2017 Smokeless Tobacco: Never Alcohol Use Standard Drinks/Week Comments Yes 0 (1 standard drink = 0.6 oz pur e alcohol) social Comments No Sex and Gender Information Value Date Recorded Sex Assigned at Not on file Legal Sex Female 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 PROFESSOR Gender Identity Not on file Sexual Orientation Not on file Occupation Industry Job Start Date Job End Date unemployed Not on file Not on file Not on file documented as of this encounter Plan of Treatment Not on file documented as of this encounter Procedures Procedure Name Priority Date/Time Associated Diagnosis Comments PROTIME-INR Routine 06/23/2018 PROTIME-INR Routine 06/21/2018 documented in this encounter Results * (ABNORMAL) Protime-INR (06/23/2018) INR 1.30(A) 0.9 - 1.1 [facility] POCT RESULTING LABORAT[facility] Blood specimen (specimen) Anahy Tejeda LAB BLOOD ORDERABLES Final Resul t Performing Organization Address [facility] de Phone Number POCT RESULTING LABORATORY * (ABNORMAL) Protime-INR (06/21/2018) INR 1.70(A) 0.9 - 1.1 POCT RESULTING LABORATORY Blood specimen (specimen) Anahy Tejeda LAB BLOOD ORDERABLES Final Resul t Performing Organization Address [facility] de Phone Number POCT RESULTING LABORATORY documented in this encounter Visit Diagnoses Not on filedocumented in this encounter Care Teams Cattle Dealer Relationship Specialty Start Date End Date René Smallwood MD PCP - General Family Medicine 12/02/17 02/10/20 documented as of this encounter
--- OUTSIDE RECORDS SUMMARY | 2024-05-11 17:35 | XMS_ITS | Encounter Summary ---
Author Organization [facility] Address [address] [place] [address] Phone Care Team Providers Care Assembler Flexible Leads Name Role Phone René Smallwood MD Primary Care Provider [phone] [phone] Encounter Details Date Type Department Care Team (Latest Contact Info) Description 06/27/2018 An[address] Tele phone Call [facility] Orthopaedic Surgery [address] [place] [address] 1st [address] [place] [phone] Madonna Rodgers RN Social History Tobacco Use Types Packs/Day Years Used Date Smoking Tobacco: Former Cigarettes 0.5 25 0 05/27/1992 - 05/27/2017 Smokeless Tobacco: Never Alcohol Use Standard Drinks/Week Comments Yes 0 (1 standard drink = 0.6 oz pur e alcohol) social Comments No Sex and Gender Information Value Date Recorded Sex Assigned at Not on file Legal Sex Female 11:20 AM RN LAB Gender Identity Not on file Sexual Orientation Not on file Occupation Industry Job Start Date Job End Date unemployed Not on file Not on file Not on file documented as of this encounter Plan of Treatment Not on file documented as of this encounter Procedures Procedure Name Priority Date/Time Associated Diagnosis Comments PROTIME-INR Routine 06/26/2018 documented in this encounter Results * (ABNORMAL) Protime-INR (06/26/2018) INR 2.20(A) 0.9 - 1.1 HH POCT RESULTING LABORATORY Blood specimen (specimen) us Anahy Tejeda LAB BLOOD ORDERABLES Final Resul t HH POCT RESULTING LABORATORY documented in this encounter Visit Diagnoses Not on filedocumented in this encounter Care Teams Assembler Flexible Leads Relationship Specialty Start Date End Date René Smallwood MD PCP - General Family Medicine 12/02/17 02/10/20 documented as of this encounter
--- OUTSIDE RECORDS SUMMARY | 2024-05-11 17:35 | XMS_ITS | Encounter Summary ---
Author Organization [facility] Address [address] [place] [address] Phone Care Team Providers Care Flaker Operator Name Role Phone René Smallwood MD Primary Care Provider [phone] [phone] Encounter Details Date Type Department Care Team (Late st Contact Info) Description 07/16/2018 Orders Only [facility] Orthopaedic Surgery [address] 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 70 tablet 07/16/2018 0 documented in this encounter Plan of Treatment Not on file documented as of this encounter Visit Diagnoses Diagnosis Left knee pain, unspecified chronicity- Primary documented in this encounter Care Teams Flaker Operator Relationship Specialty Start Date End Date René Smallwood MD PCP - General Family Medicine 12/02/17 02/10/20 documented as of this encounter
--- OUTSIDE RECORDS SUMMARY | 2024-05-11 17:35 | XMS_ITS | Encounter Summary ---
Author Organization [facility] Address [address] [place] [address] Phone Care Team Providers Care Professor Of Forest Planning Name Role Phone René Smallwood MD Primary Care Provider [phone] [phone] Reason for Referral * Diagnostic Imaging (Routine) - Closed Specialty Diagnoses / Procedures Referred By Liz falcon Referred To Contact Diagnoses S/P revision of total knee, left Procedures XR Knee Left 3 Views David Ba MD Phone: tel: fax: [facility] [address] Referral ID Status Reason Start Date Expiration Date Visits Re quested Visits Authorized [id number] Closed 07/15/2018 01/24/2020 1 1 ON MAKING MACHINE OPERATOR Reason for Visit * Reason Comments Post-op * Orthopedic (Routine) - Closed Specialty Diagnoses / Procedures Referred By Liz falcon Referred To Contact Orthopedic Surgery Diagnoses bilat knee Procedures RETURN David Ba MD Phone: tel: fax: David Ba MD [address] [place] [address] Phone: tel: fax: Referral ID Status Reason Start Date Expiration Date Visits Re quested Visits Authorized [id number] Closed 12/02/2017 12/02/2018 12 12 Encounter Details Date Type Department Care Team (Late st Contact Info) Description 07/16/2018 1:00 PM CARTON MAKING MACHINE OPERATOR Office Visit [facility] Orthopaedic Surgery [address] [facility] 2[address] [place] [address] David Ba MD [address] [place] [address] S/P revision of total knee, left (Primary Dx) Social History Tobacco Use Types Packs/Day Years Used Date Smoking Tobacco: Former Cigarettes 0.5 25 0 05/27/1992 - 05/27/2017 Smokeless Tobacco: Never Alcohol Use Standard Drinks/Week Comments Yes 0 (1 standard drink = 0.6 oz pur e alcohol) social Comments No Sex and Gender Information Value Date Recorded Sex Assigned at Not on file Legal Sex Female 11:20 AM CARTON MAKING MACHINE OPERATOR Gender Identity Not on file Sexual Orientation Not on file Occupation Industry Job Start Date Job End Date unemployed Not on file Not on file Not on file documented as of this encounter Progress Notes * David Ba MD - 07/16/2018 12:00 AM CST ESTABLISHED PATIENT VISIT INTERIM HISTORY: The patient is status post left total knee arthroplasty revision 1 month ago. The patient comes in today. She is overall doing very well. No problems. PHYSICAL EXAMINATION: General: She is alert and oriented x3. In no acute distress. Nonlabored breathing. Musculoskeletal: Her left knee incision, unfortunately, developed some blisters, and she has a 3 cmarea of a linear scab over the front of her knee incision. The patient pain ho is doing relatively well. Her blisters are all dry. There is no concern for erythema, induration, or drainage. Her knee range of motion is 0 to 120 degrees. Stable ligamentously. REVIEW OF X-RAY/STUDIES: X-rays do show left total knee arthroplasty revision in good position. No signs of early loosening or failure. TREATMENT PLAN: The plan at this time is for patient to continue with outpatient physical therapy of the left knee. FOLLOW-UP: Have her come back to see us in 6 weeks. Glad to see her back sooner if there are any issues or problems. ELECTRONICALLY SIGNED - 08/02/2018 07:30 PM David Ba MD Hoist Mechanic Joint Preservation, Resurfacing and Replacement Service [facility] Orthopedics RN/jq cc: RENÉ SMALLWOOD MD ON MAKING MACHINE OPERATOR documented in this encounter Plan of Treatment Not on file documented as of this encounter Results * XR Knee Left 3 Views (07/16/2018 1:51 PM CARTON MAKING MACHINE OPERATOR) Anatomical Region Laterality Modality Lower Extremities, Knee Left Computed Radiography 07/16/2018 2:07 PM CARTON MAKING MACHINE OPERATOR Impressions 07/16/2018 2:23 PM CARTON MAKING MACHINE OPERATOR Unchanged revised semiconstrained left total knee arthroplasty in near anatomic alignment. Dictated by: Erick Ho M.D. Ph.D. Electronically signed by: Natalie Srivastava M.D. Narrative 07/16/2018 2:23 PM CARTON MAKING MACHINE OPERATOR EXAMINATION: XR KNEE LEFT 3 VIEWS HISTORY: Failed left total knee arthroplasty. FINDINGS: 3 views of the left knee are submitted for interpretation. Comparison is made to prior radiographs of the left knee 06/19/2018 and right knee 04/11/2018. There is an unchanged revised semiconstrained left total knee arthroplasty in near anatomic alignment. ??There is a small left knee effusion. ??There is no fracture. ??Postsurgical gas has resolved. On the right there is an unchanged total knee arthroplasty. Procedure Note Natalie Srivastava MD - 07/16/2018 EXAMINATION: XR KNEE LEFT 3 VIEWS HISTORY: Failed left total knee arthroplasty. FINDINGS: 3 views of the left knee are submitted for interpretation. Comparison is made to prior radiographs of the left knee 06/19/2018 and right knee 04/11/2018. There is an unchanged revised semiconstrained left total knee arthroplasty in near anatomic alignment. There is a small left knee effusion. There is no fracture. Postsurgical gas has resolved. On the right there is an unchanged total knee arthroplasty. IMPRESSION: Unchanged revised semiconstrained left total knee arthroplasty in near anatomic alignment. Dictated by: Erick Ho M.D. Ph.D. Electronically signed by: Natalie Fredy Demertzis, M.D. David Ba MD IMG XR PROCEDURES Final R esult documented in this encounter Visit Diagnoses Diagnosis S/P revision of total knee, left- Primary S/P revision of total knee, left documented in this encounter Care Teams Professor Of Forest Planning Relationship Specialty Start Date End Date René Smallwood MD PCP - General Family Medicine 12/02/17 02/10/20 documented as of this encounter
--- OUTSIDE RECORDS SUMMARY | 2024-05-11 17:35 | XMS_ITS | Encounter Summary ---
Author Organization [facility] Address [address] [place] [address] Phone Care Team Providers Care Irrigation Service Technician Name Role Phone René Smallwood MD Primary Care Provider [phone] [phone] Encounter Details Date Type Department Care Team (Late st Contact Info) Description 01/30/2019 Orders Only [facility] Orthopaedic Surgery [address] [facility] 6th [place] [address] [place] [address] David Ba MD [address] [place] [address] Chronic bilateral thoracic back pain (Primary Dx) Social History Tobacco Use Types Packs/Day Years Used Date Smoking Tobacco: Former Cigarettes 0.5 25 0 05/27/1992 - 05/27/2017 Smokeless Tobacco: Never Alcohol Use Standard Drinks/Week Comments Yes 0 (1 standard drink = 0.6 oz pur e alcohol) social Comments No Sex and Gender Information Value Date Recorded Sex Assigned at Not on file Legal Sex Female 11:20 AM ALL AROUND GEAR MACHINE OPERATOR Gender Identity Not on file Sexual Orientation Not on file Occupation Industry Job Start Date Job End Date unemployed Not on file Not on file Not on file documented as of this encounter Plan of Treatment Not on file documented as of this encounter Visit Diagnoses Diagnosis Chronic bilateral thoracic back pain- Primary documented in this encounter Care Teams Irrigation Service Technician Relationship Specialty Start Date End Date René Smallwood MD PCP - General Family Medicine 12/02/17 02/10/20 documented as of this encounter
--- OUTSIDE RECORDS SUMMARY | 2024-05-11 17:35 | XMS_ITS | Encounter Summary ---
Author Organization [facility] Address [address] [place] [address] Care Team Providers Care Holder Pile Driving Name Role Phone René Smallwood MD Primary Care Provider [phone] [phone] Encounter Details Date Type Department Care Team (Latest Contact Info) Description 01/28/2019 6:22 PM CDT - 01/28/2019 11:59 PM CDT Hospital Encounter [facility] [address] [place] [address] Discharge Disposition: Discharge to home or self [...] on file Legal Sex Female 11:20 AM TILE ERECTOR Gender Identity Not on file Sexual Orientation [...] total) by mouth every morning 12/30/2017 3 meloxicam (MOBIC) 15 mg tabletIndications :Aftercare following [...] Comments NEURO CT MR OUTSIDE REFERENCE Routine 01/28/2019 6:22 PM CDT Diagnosis unknown documented in this encounter Results * Neuro CT MR Outside Reference (01/28/2019 6:22 PM CDT) Impressions [facility] - 01/28/2019 6:22 PM CDT These images are for Reference purposes only and have not been reviewed by [facility] Radiology. ??There will be no report generated by a [facility] Radiologist. Narrative [facility] - 01/28/2019 6:22 PM CDT EXAMINATION: ??Images For Reference Purposes Only us David Ba MD IMG CT PROCEDURES Final R esult [facility] documented in this encounter Visit Diagnoses Not on filedocumented in this encounter Care Teams Holder Pile Driving Relationship Specialty Start Date End Date René Smallwood MD PCP - General Family Medicine 12/02/17 02/10/20 documented as of this encounter
--- OUTSIDE RECORDS SUMMARY | 2024-05-11 17:35 | XMS_ITS | Encounter Summary ---
Author Organization [facility] Address [address] [place] [address] Phone Care Team Providers Care Purler Name Role Phone René Smallwood MD Primary Care Provider [phone] Encounter Details Date Type Department Care Team (Late st Contact Info) Description 03/05/2018 Orders Only [facility] Orthopaedic Surgery [address] [facility] [address]th [place] [address] [place] [address] David Ba MD [address] [place] [address] Aftercare following knee joint replacement surgery, unspecified laterality (Primary Dx) Social History Tobacco Use Types Packs/Day Years Used Date Smoking Tobacco: Former Cigarettes 0.5 24 1 2017 Smokeless Tobacco: Never Alcohol Use Standard Drinks/Week Comments Yes 0 (1 standard drink = 0.6 oz pur e alcohol) social Comments No Sex and Gender Information Value Date Recorded Sex Assigned at Not on file Legal Sex Female 11:20 AM POSITION CLASSIFICATION SPECIALIST Gender Identity Not on file Sexual Orientation Not on file Occupation Industry Job Start Date Job End Date unemployed Not on file Not on file Not on file documented as of this encounter Ordered Prescriptions Prescription Sig Dispense Quantity Refills Last Filled Start Date End Date hydrOXYzine (VISTARIL) 25 mg capsuleIndications :Aftercare following knee joint replacement surgery, unspecified laterality Take 1 capsule (25 mg total) by mouth 3 (three) times a day as needed for anxiety. 40 capsule 1 03/05/2018 9 documented in this encounter Plan of Treatment Not on file documented as of this encounter Visit Diagnoses Diagnosis Aftercare following knee joint replacement surgery, unspecified laterality- Primary documented in this encounter Care Teams Purler Relationship Specialty Start Date End Date René Smallwood MD PCP - General Family Medicine 12/02/17 02/10/20 documented as of this encounter
--- OUTSIDE RECORDS SUMMARY | 2024-05-11 17:35 | XMS_ITS | Encounter Summary ---
Author Organization [facility] Address [address] [place] [address] Phone Care Team Providers Care Medical Device Sales Name Role Phone René Smallwood MD Primary Care Provider [phone] Reason for Referral * Diagnostic Imaging (Routine) - Closed Specialty Diagnoses / Procedures Referred By Contac t Referred To Contact Diagnoses Back pain, unspecified back location, unspecified back pain laterality, unspecified chronicity Procedures MRI Lumbar Spine WO Contrast David Ba MD Phone: tel: fax: External Order Referral ID Status Reason Start Date Expiration Date Visits Re quested Visits Authorized [id number] Closed 01/15/2019 04/15/2019 1 1 Encounter Details Date Type Department Care Team (Late st Contact Info) Description 01/06/[address] [facility] Orthopaedic Surgery [address] 2nd [address] [place] [address] David Ba MD [address] [place] [address] Back pain, unspecified back location, [...] on file Legal Sex Female 11:20 AM DICE MANAGER Gender Identity Not on file Sexual Orientation Not on file Occupation Industry Job Start Date Job End Date unemployed Not on file Not on file Not on file documented as of this encounter Plan of Treatment Not on file documented as of this encounter Results * MRI Lumbar Spine WO Contrast (01/30/2019 8:17 AM CDT) Anatomical Region Laterality Modality Spine N/A Magnetic Resonan ce David Ba MD IMG MRI PROCEDURES Final Result documented in this encounter Visit Diagnoses Diagnosis Back pain, unspecified back location, unspecified back pain laterality, unspecified chronicity- Primary documented in this encounter Care Teams Medical Device Sales Relationship Specialty Start Date End Date René Smallwood MD PCP - General Family Medicine 12/02/17 02/10/20 documented as of this encounter
--- OUTSIDE RECORDS SUMMARY | 2024-05-11 17:35 | XMS_ITS | Encounter Summary ---
Author Organization [facility] Address [address] [place] [address] Phone Care Team Providers Care Environmental Engineer Name Role Phone René Smallwood MD Primary Care Provider [phone] Reason for Visit * Reason Comments Follow-up Post-op * Orthopedic (Routine) - Closed Specialty Diagnoses / Procedures Referred By Liz falcon Referred To Contact Orthopedic Surgery Diagnoses bilat knee Procedures RETURN David Ba MD Phone: tel: fax: David Ba MD [address] [facility] [address] [place] [address] Phone: tel: fax: Referral ID Status Reason Start Date Expiration Date Visits Re quested Visits Authorized [id number] Closed 12/02/2017 12/02/2018 12 12 Encounter Details Date Type Department Care Team (Late st Contact Info) Description 04/11/2018 2:10 PM PRODUCTION SAMPLER Office Visit [facility] Orthopaedic Surgery [address] [place] [address] David Ba MD [address] [facility] [address] [place] [address] S/P revision of total knee, right (Primary Dx); Aftercare following right knee joint replacement surgery Social History Tobacco Use Types Packs/Day Years Used Date Smoking Tobacco: Former Cigarettes 0.5 24 1 994 - 2017 Smokeless Tobacco: Never Alcohol Use Standard Drinks/Week Comments Yes 0 (1 standard drink = 0.6 oz pur e alcohol) social Comments No Sex and Gender Information Value Date Recorded Sex Assigned at Not on file Legal Sex Female 11:20 AM PRODUCTION SAMPLER Gender Identity Not on file Sexual Orientation [...] 4 (four) hours as needed for pain. 60 tablet 04/11/2018 9 meloxicam (MOBIC) 15 mg tabletIndications: Aftercare following right knee joint replacement surgery Take 1 tablet (15 mg total) by mouth daily. 30 tablet 2 04/11/2018 9 ketorolac (TORADOL) 10 mg tabletIndications: Aftercare following right knee joint replacement surgery One tablet every 8 hours for 15 days 15 tablet 04/11/2018 9 documented in this encounter Progress Notes * Carlie Meng - 04/11/2018 2:10 PM CST Patient Information Patient Name: Marnie Roque Gender: female Date of : 1965 Age: 52 y.o. (home) Procedure: L TKA Rev OR Date: 06-19-18 OR Location: [facility] Joint Engineering Mgr Name: Radha Telephone: PCP: René Smallwood MD Pre-Op Scheduling Anesthesia: Spinal Preferred Blood Requirements: T & S Consents: Surgery procedure consent obtained. Blood transfusion consent obtained. Preadmission Testing/Anesthesia H&P: Date: 05-30-18 Time: 3:00 Pre-Op Meds/Anticoag: Instructed to stop primary prevention ASA/hormones/supplements 7 Days prior to surgery Instructed to stop NSAIDS 5 days prior to surgery Anticoagulation protocol discussed: Coumadin Decolonization Instructions: Skin preparations guide Mupirocin Rx Prescription for Celebrex N/A The patient was given a TKA teaching packet including surgery guidelines with instructions, DECOL protocol instructions, instructions to stop all NSAID's, Blood thinners and aspirin products one weekbefore surgery, as well as office contacts to call if they have any additional questions prior to their surgery date. Current Outpatient Prescriptions: ??? aspirin 325 mg EC tablet, Take 1 tablet (325 mg total) by mouth 2 (two) times a day., Disp: 84 tablet, Rfl: 0 ??? diazePAM (VALIUM) 5 mg tablet, Take 5 mg by mouth nightly. at bedtime. , Disp: , Rfl: 5 ??? hydrOXYzine (VISTARIL) 25 mg capsule, Take 1 capsule (25 mg total) by mouth 3 (three) times a day as needed for anxiety., Disp: 40 capsule, Rfl: 1 ??? levothyroxine (SYNTHROID, LEVOTHROID) 100 mcg tablet, Take 100 mcg by mouth every morning. , Disp: , Rfl: ??? oxyCODONE-acetaminophen (PERCOCET) 5-325 mg per tablet, Take 1-2 tablets by mouth every 4 (four) hours as needed for pain., Disp: 60 tablet, Rfl: 0 ??? polyethylene glycol (MIRALAX) 17 gram packet, Take 1 packet (17 g total) by mouth daily as needed (constipation)., Disp: , Rfl: ??? senna-docusate (PERICOLACE) 8.6-50 mg, Take 2 tablets by mouth 2 (two) times a day. You may take up to 4 tabs twice daily if needed for constipation. HOLD for diarrhea., Disp: 80 tablet, Rfl: 1 ??? topiramate (TOPAMAX) 25 mg tablet, Take 25 mg by mouth 4 (four) times a day. , Disp: , Rfl: ??? ketorolac (TORADOL) 10 mg tablet, One tablet every 8 hours for 15 days, Disp: 15 tablet, Rfl: 0 ??? meloxicam (MOBIC) 15 mg tablet, Take 1 tablet (15 mg total) by mouth daily., Disp: 30 tablet, Rfl: 2 She has No Known Allergies. Risk Assessment DANIEL RISK: No STOP BANG Score: CMP(CO2): Sleep Study: CPAP/BIPAP: No N/A Bone Health screen - Vitamin D Level Ordered: Yes N/A Oral Health: Healthy teeth Smoking History: No Family History of DVT/PE: No She reports that she quit smoking about a year ago. She started smoking about 25 years ago. She smoked 0.50 packs per day. She has never used smokeless tobacco. She reports that she drinks alcohol. She reports that she does not use drugs. Audit-C Alcohol Screening How often do you have a drink containing alcohol?: Monthly or less How many standard drinks containing alcohol do you have on a typical day?: 1 or 2 drinks How often do you have six or more drinks on one occasion?: Never Audit-C Score: 1 Female: <3 (negative) Illegal Drug Use: Never Functional/Home Assessment health sciences manager assistance: Live in available day/night In a: Home Home Accessibility: n/a Home Environment: Entry Steps: no Bedroom Location: 2nd Floor Bathroom Location:1st Floor What Medical Devices/Equipment used: n/a Are you able to self-manage activities of daily living: ADL's: Bathing, Dressing, Self-feeding, Personal Hygiene and Toilet Hygiene IADL's: Housework, Medications, Managing Money, Shopping and Telephone Transportation: Self Pre-Op Ambulation: Independent Community distances Projected Post-Op Weight bearing: Full or WBAT Home Location: < 150 miles RAPT: What is your age group?: 50-65 Years Gender: Female How far on average can you walk? (a block is 200 meters): 1-2 blocks (+/-rest) Which gait aid do you use most? (more often than not): None Do you use community supports? (home-help, meals on wheels, district nursing): None or one per week Will you live with someone who can care for you after your operation?: Yes RAPT Total Score: 10 (If <9 send to [facility]'s floor care team for review) (If <6 Pre-Op SW Consult) DUENAS: Destination at discharge from acute care predicted by score: Scores <6 facility placement Scores 6-9 directly home after additional acute intervention Scores >9 directly home Patient's expectation of discharge destination is also a determinant. The prediction indicated by the score is discussed with the patient and the destination agreed to. Patient's preference: Home Agreed destination: Home with > 5 Home Health visits RRAT Infection Risk Factors: Is patient positive for MRSA colonization at CPAP?: No Every Patient is decolonized per guideline. - Nasal Mupirocin (Bid x5 days pre-op) or povidone-iodine (DOS) and chlorhexidine gluconate (CHG) showers (QD x5 days prior to surgery & morning of surgery) and appropriate antibiotic coverage. - If these requirements are not met then HARD STOP until protocol implemented. Smoking (Tobacco Use): Current Smoker? No Obesity: What is the patient's BMI? BMI 30 - 35 Cardiovascular Disease: Patient has a history of Coronary Artery Disease (CAD), stroke, Peripheral Vascular Disease or VTED, is 60 years of age or older and has at least 2 cardiac risk factors: No Venous Thromboembolic Disease: Does the patient have a history of Pulmonary Embolus or Deep Vein Thrombosis? No Does the patient have any of the following VTED risk factors: CVA, COPD, BMI>30, CAD, Stroke, PVD, or Activated Protein C Resistance? No Neurocognitive, Psychological and Behavioral Problems (including alcohol and drug dependency): Does the patient have a history of alcohol abuse or chronic active narcotic dependency? No Does the patient have any neurocognitive deficits such as traumatic brain injury (TBI)l active psychiatric illness, dementia, etc? No Was the patient's last calculated PROMIS depression score greater than or equal to 60? No Physical Deconditioning: Patient is nonambulatory or needs assistance with transfer status? No Patient has comorbidities affecting physical function and ambulation? No Diabetes: Is the patient diabetic? No Last calculated Fasting Blood Glucose > 180 mg/dl? Last calculated Hgb A1c > 8? Is DM well controlled? RRAT Total Score: 1 Recommendations for Preoperative Care/Optimization: < 2 Proceed with Scheduling Surgery. Carlie Meng UCTION SAMPLER * Lobito Kohler MD - 04/11/2018 12:00 AM CST ESTABLISHED PATIENT VISIT INTERIM HISTORY: Ms. Roque is a 52-year-old female who presents for evaluation status post revision right total knee replacement on 02/18/2018. The patient states that she was doing quite well and very pleased with the results of her surgery but had acute onset of medial-sided knee pain about a week ago. She did not report any trauma. She states that this pain has been quite persistent and shooting in nature.She also states this is very similar to the pain she had prior to her revision surgery. Her pain isnow causing her to walk with a walker. She is quite distraught from the amount of pain that she is in. PHYSICAL EXAMINATION: On physical exam, she localizes the pain primarily to the medial aspect of her knee. Her skin status shows a well-healed surgical incision without issues. Her range of motion is from 3 to 115 degreesof flexion. She has no instability. She has no effusion. She walks with a mild limp. Her pulses areintact distally. She has no dependent edema. She is neurologically intact distally. She has good savana driceps muscle strength. REVIEW OF X-RAY/STUDIES: X-rays of the right knee obtained today and show no changes from previous x-rays obtained on her last visit. IMPRESSION/DIAGNOSIS: This is a 52-year-old female who was initially doing quite well status post revision right total knee replacement. However, she has had acute worsening of her pain in the past week that has been quite persistent. Exam is unchanged from her last visit last month, and her x-rays are also unchanged. TREATMENT PLAN: At this time, we will continue to monitor her pain. Today, she was given a prescription for [id number] mg every 8 hours #15, meloxicam 15 mg every day, and a Percocet refill. We will see the patient back on a routine basis. Dictated by: Lobito Kohler M.D. ATTENDING ADDENDUM The patient's history and physical examination have been dictated by Dr. Lobito Kohler. I have independently performed a history and physical examination, and I agree with the findings. ELECTRONICALLY SIGNED - 04/14/2018 03:37 AM David Ba MD Welding Lead Burner Joint Preservation, Resurfacing and Replacement Service [facility] Orthopedics MARIELOS/TAL/cv cc: RENÉ SMALLWOOD MD UCTION SAMPLER documented in this encounter Plan of Treatment Not on file documented as of this encounter Visit Diagnoses Diagnosis S/P revision of total knee, right- Primary Aftercare following right knee joint replacement surgery documented in this encounter Discontinued Medications Medication Sig Discontinue Reason Start Date End Da te oxyCODONE-acetaminophen (PERCOCET) 5-325 mg per tabletIndications:Pain Take 1-2 tablets by mouth every 4 (four) hours as needed for pain. Reorder 03/17/2018 04/11/2018 documented as of this encounter Care Teams Environmental Engineer Relationship Specialty Start Date End Date René Smallwood MD PCP - General Family Medicine 12/02/17 02/10/20 documented as of this encounter
--- OUTSIDE RECORDS SUMMARY | 2024-05-11 17:35 | XMS_ITS | Encounter Summary ---
Author Organization [facility] Address [address] [place] [address] Phone Care Team Providers Care Director Of Corporate Sales Name Role Phone René Smallwood MD Primary Care Provider [phone] [phone] Reason for Referral * Diagnostic Imaging (Routine) - Closed Specialty Diagnoses / Procedures Referred By Contac t Referred To Contact Radiology Diagnoses Back pain, unspecified back location, unspecified back pain laterality, unspecified chronicity Procedures IR Transforaminal Epidural Injection Lumbar Sacral 1 Level Left Mark Chávez MD Phone: tel: fax: [facility] [address] [place] [address] Referral ID Status Reason Start Date Expiration Date Visits Re quested Visits Authorized [id number] Closed 02/20/2019 03/26/2019 1 1 Reason for Visit * Reason Comments Pain * Orthopedic (Routine) - Closed Specialty Diagnoses / Procedures Referred By Contact Referred To Contact Physical Medicine and Rehabilitation Diagnoses Chronic bilateral thoracic back pain T SPINE MRI WEEKS AGO GAVE TO OFFICE Procedures NEW TO PROVIDER René Smallwood MD Phone: tel: fax: Mark Chávez MD [address] [facility] [address] [address] [place] [address] Phone: tel: fax: Referral ID Status Reason Start Date Expiration Date Visits Re quested Visits Authorized [id number] Closed 02/16/2019 02/16/2020 12 12 Encounter Details Date Type Department Care Team (Late st Contact Info) Description 02/20/2019 9:15 AM CDT Office Visit [facility] Orthopaedic Surgery [address] [place] [address] Mark Chávez MD [address] [place] [address] Back pain, unspecified back location, unspecified back pain laterality, unspecified chronicity (Primary Dx); Chronic pain syndrome; Anxiety and depression; Class 1 obesity with serious comorbidity and body mass index (BMI) of 34.0 to 34.9 in adult, unspecified obesity type; History of bilateral knee replacement Social History Tobacco Use Types Packs/Day Years Used Date Smoking Tobacco: Former Cigarettes 0.5 25 0 05/27/1992 - 05/27/2017 Smokeless Tobacco: Never Alcohol Use Standard Drinks/Week Comments Yes 0 (1 standard drink = 0.6 oz pur e alcohol) social Comments No Sex and Gender Information Value Date Recorded Sex Assigned at Not on file 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 We will schedule you for a left L5 transforaminal epidural steroid injection. 2. I will send a referral to the Pain Management Department at [facility]. If you do nothear from them within 2 weeks to schedule an appointment please call . If your symptoms should worsen, please call our office at to speak with the medical clerical assistant, Berkley Pagan. Our regular business hours are M-F from 8:00 a.m. to 4:30 p.m. If your symptoms worsen, and you are unable to reach anyone at our office, you should seek further medical attention in the ER or with your primary care provider. documented in this encounter Progress Notes * Mark Chávez MD - 02/20/2019 9:15 AM CDT NEW PATIENT VISIT Chief Complaint Patient presents with ??? Spine - Pain HISTORY OF PRESENTING ILLNESS Marnie Roque is a 53 y.o. female with history of anxiety, depression, obesity (BMI 34.01) , bilateral knee osteoarthritis status post bilateral TKA who presents for evaluation of left lower extremity pain. Patient has been followed by Dr. Ba for bilateral knee osteoarthritis and has undergone bilateral total knee arthroplasty, most recently in May 2018. She complains of bilateral knee pain which is now more severe than preop. Left knee pain is more severe than right knee pain. Leftknee pain radiates both distally down the lateral aspect of her calf to her ankle and more proximally down the lateral aspect of her thigh into her buttocks. She has been unable to tolerate physical therapy due to severe pain. Due to concern for potential lumbosacral radiculopathy she underwent MRIof the lumbar spine which was relatively unremarkable other than very mild neural foraminal stenosis at the left side at L4-5 and L5-S1. She underwent EMG/NCS of the left lower extremity which was unr emarkable with the exception of a mildly abnormal left tibial H-reflex which could be consistent with a left S1 radiculopathy. However needle EMG of S1 innervated musculature was normal, making this diagnosis less likely. Patient has been trialed on meloxicam, gabapentin, duloxetine without improvement in her pain. Pain has become progressively more severe and is now limiting her ability to ambulate. She does not have an assistive device. Patient currently complains of dull, aching, sharp, stabbing pain rated 10/10 intensity diffusely in bilateral knees, left more severe than right. Left knee pain radiates both distally down the lateral aspect of her [place] to her lateral ankle, not into her foot, as well as proximally up the lateral aspect of her thigh into her left buttocks. Pain is associated with generalized weakness in bilateral lower extremities. Pain is aggravated by any movement of her knees, hips, or low back. Pain is relieved with rest, and lying supine. She denies any sensory deficits in lower extremity. She denies any bowel or bladder incontinence, fevers, chills, night sweats, unintentional weight loss. I personally reviewed patient's medical records pertaining to bilateral knee and left lower extremity pain, and have summarized them above. PAST MEDICAL HISTORY She has a past medical history of Anxiety, Arthritis, Depression, Migraines, and Obesity. She also has no past medical history of Acute respiratory failure requiring reintubation ([facility]), Awarenessunder anesthesia, Delayed emergence from general anesthesia, Hard to intubate, Malignant hyperthermia, Pneumothorax, PONV (postoperative nausea and vomiting), Postoperative delirium, or Sleep apnea. PAST SURGICAL HISTORY She has a past surgical history that includes Tubal ligation; Wrist fracture surgery; Total knee arthroplasty (Left, 05/2014); Total knee arthroplasty (Right, 08/2015); and Revision total knee arthroplasty (Right, 02/18/2018). INITIAL REVIEW OF MEDICATIONS She has a current medication list which includes the following prescription(s): diazepam, duloxetine dr, gabapentin, hydroxyzine, levothyroxine sodium, lidocaine, meloxicam, oxycodone-acetaminophen, salicylic acid, senna-docusate, topiramate, and warfarin. ALLERGIES She has No Known Allergies. SOCIAL HISTORY She reports that she quit smoking about 20 months ago. She started smoking about 26 years ago. She smoked 0.50 packs per day. She has never used smokeless tobacco. She reports that she drinks alcohol. She reports that she does not use drugs. FAMILY HISTORY Her family history includes Arthritis in an other family member; Mental illness in an other family member. REVIEW OF SYSTEMS Review of Systems Constitutional: Positive for malaise/fatigue. Negative for chills, diaphoresis, fever and weight loss. HENT: Negative. Eyes: Negative. Respiratory: Negative. Cardiovascular: Negative. Gastrointestinal: Negative. Genitourinary: Negative. Musculoskeletal: Positive for back pain, joint pain and myalgias. Negative for falls and neck pain. Skin: Negative. Neurological: Positive for weakness. Negative for dizziness, tingling, tremors, sensory change, speech change, focal weakness, seizures, loss of consciousness and headaches. Endo/Heme/Allergies: Negative. Psychiatric/Behavioral: Positive for depression. Negative for hallucinations, memory loss, substance abuse and suicidal ideas. The patient is nervous/anxious and has insomnia. PHYSICAL EXAMINATION GENERAL: In no acute distress. Well-developed, overweight PSYCHOLOGICAL: Alert and oriented. Cooperative, depressed/anxious mood. HENT: Normocephalic, atraumatic. Hearing adequate for conversation. EYES: Non-icteric sclera. ABDOMEN: Soft, non-tender; no palpable masses. RESPIRATORY: Non-labored breathing. No audible cough or wheeze. CARDIOVASCULAR: No edema. Bilateral lower extremities are warm and well perfused. SKIN: No rashes or open wounds involving posterior torso, posterior pelvis, lower extremities. NEUROLOGIC: Strength: Give way weakness with bilateral HF, KE, though at least 4/5. 4+/5 ankle dorsiflexion though results in bilateral knee pain. 5/5 plantarflexion, and great toe extension. Sensation: intact to light touch sensation throughout dermatomes of both lower extremities. Reflexes: Unable to elicit reflexes at bilateral patella. 1+ at bilateral achilles. No clonus. Gait: antalgic gait with severe bilateral knee pain. MUSCULOSKELETAL: Inspection: Normal alignment of lumbar spine. No shift or scoliosis. Normal posture. Equal iliac crest heights. No pelvic asymmetry. Surgical incisions over the anterior aspects of bilateral knees. No erythema, calor at the knees Palpation: Diffusely tender with light palpation of lumbar spinous processes and paraspinal musculature. No palpable step offs. Tender to palpation over bilateral PSIS and greater trochanters. Exquisitely tender to palpation over bilateral knees including both medial and lateral joint lines, patellar tendon, patella, posterior knee. ROM: Active lumbar spine ROM is restricted in flexion and extension due to diffuse pain. Pain with bilateral knee flexion and extension. Special Tests: Slump sit: Negative for back or leg pain, Supine SLR: Negative Erika signs: Pain with axial load, diffusely tender to light palpation, pain with simulated spinerotation, nonanatomic basis for pain- knee pain with resisted ankle dorsiflexion REVIEW OF PRIOR X-RAYS/STUDIES I personally reviewed MRI of the lumbar spine without contrast dated 01/16/19. There is mild straightening the lumbar lordosis. There is normal alignment of the lumbar spine with preserved disc spaces. There is no evidence of acute fracture. At the L4-L5 level there is a mild left-sided foraminal disc bulge with very minimal left-sided L4 neural foraminal stenosis. At the L5-S1 level there is a mild left-sided disc bulge with very minimal left-sided L5 neural foraminal stenosis. I have personally reviewed EMG/NCS results from 12/24/18: This is a largely normal study of the leftlower extremity, specifically providing no clear electrodiagnostic support for a large fiber polyneuropathy or mononeuropathy. The left tibial H reflex is mildly abnormal compared to the right side; as an isolated finding, this is of uncertain significance and could represent technical error. However, a mild radiculopathy at S1 cannot entirely be excluded, despite the negative needle EMG findings IMPRESSION/DIAGNOSIS Marnie Roque is a 53 y.o. female with history of anxiety, depression, obesity (BMI 34.01) , bilateral knee osteoarthritis status post bilateral TKA who presents for evaluation of left lower extremity pain. Exam today is not consistent with a lumbosacral radiculopathy, however patient does complain of radicular pain which follows closely to the left L5 dermatome. Strength testing is limited by patient effort and severe pain, though it does not appear that patient is weak in any of the L5 innervated muscles. Patient is exquisitely tender diffusely around bilateral knees but does not meet Budapest criteria for a diagnosis of CRPS. The patient has several positive Erika signs today. Patie nt may have pain related to bilateral knee NATHANIEL, though this is an overshadowed by centralized pain syndrome as well as concomitant depression and anxiety. I would recommend referral to a multidisciplinary pain management program. Of note, patient's requested a script for opioids to manage patient's pain. I explained that opioids are not indicated in the management of non-cancerous chronicpain. 1. Centralized pain, fibromyalgia 2. Left lower extremity pain which could be consistent with left L5 radiculitis 3. History of bilateral TKA 4. Depression, anxiety 5. Obesity, BMI 34.01 TREATMENT/PLAN 1. Medications: I would recommend restarting duloxetine for centralized pain with goal of 30mg BID.Patient reports trying this medication in the past without improvement though dosing and duration of use was unclear. Of note, patient's requested a script for opioids to manage patient's pain. I explained that opioids are not indicated in the management of non-cancerous chronic pain. 2. Interventions: I explained to the patient and her that a lumbar spine injection is unlikely to provide her with significant relief, and has the potential to make her pain worse. However, this injection may be used as a diagnostic indicator of left L5 radicular pain. After extensive discussion regarding the risks, side effects of this injection, she wished to proceed. I will schedule patient for a left L5 transforaminal epidural steroid injection. 3. Referrals: I will refer the patient to pain management. Patient would benefit from a multidisciplinary pain rehabilitation program 4. Physical therapy: I recommended referral to physical therapy, though the patient declined 5. Follow up: For injection 6. Education was provided regarding the above impression/diagnosis and treatment options/plan were discussed. All questions were answered during today's visit. Patient will contact clinic if any other questions or concerns. Mark Chávez MD Mobile Architect Physical Medicine and Rehabilitation [facility] documented in this encounter Plan of Treatment Not on file documented as of this encounter Results * IR Transforaminal Epidural [...] unspecified back pain laterality, unspecified chronicity- Primary Chronic pain syndrome Anxiety and depression Class 1 obesity with serious comorbidity and body mass index (BMI) of 34.0 to 34.9 in adult, unspecified obesity type History of bilateral knee replacement Left lumbar radiculitis- Primary Back pain, unspecified back location, unspecified back pain laterality, unspecified chronicity documented in this encounter Historical Medications * This list may reflect changes made after this encounter. Medication Sig Dispense Quantity Refills Last Filled Start D ate End Date lidocaine (XYLOCAINE) 5 % ointment 02/11/2019 11/30/2019 added in this encounter Care Teams Director Of Corporate Sales Relationship Specialty Start Date End Date René Smallwood MD PCP - General Family Medicine 12/02/17 02/10/20 documented as of this encounter
--- OUTSIDE RECORDS SUMMARY | 2024-05-11 17:35 | XMS_ITS | Encounter Summary ---
Author Organization [facility] Healthcare Address [address] [place] [address] Care Team Providers Care Pipeline Operator Name Role Phone René Smallwood MD Primary Care Provider [phone] Reason for Visit * Diagnostic Imaging (Routine) - Closed Specialty Diagnoses / Procedures Referred By Contac t Referred To Contact Diagnoses S/P revision of total knee, right Procedures XR Knee Right 3 Views David Ba MD Phone: tel: fax: [place] [phone] [address] Referral ID Status Reason Start Date Expiration Date Visits Re quested Visits Authorized [id number] Closed 02/27/2018 09/08/2019 1 1 Encounter Details Date Type Department Care Team (Latest Contact Info) Description 03/17/2018 10:00 AM CDT Ancillary Procedure [facility] [address] [place] [address] David Ba MD [address] [facility] [address] [place] [address] S/P revision of total knee, right Discharge Disposition: Discharge to home or self [...] on file 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
--- OUTSIDE RECORDS SUMMARY | 2024-05-11 17:35 | XMS_ITS | Encounter Summary ---
Author Organization [facility] Healthcare Address [address] [place] [address] Care Team Providers Care Soil Technician Name Role Phone René Smallwood MD Primary Care Provider [phone] Reason for Visit * Diagnostic Imaging (Routine) - Closed Specialty Diagnoses / Procedures Referred By Contac t Referred To Contact Diagnoses Hx of total knee replacement, left Procedures XR Knee Left 3 Views David Ba MD Phone: tel: fax: [place] [address] [address] Referral ID Status Reason Start Date Expiration Date Visits Re quested Visits Authorized [id number] Closed 11/26/2018 06/06/2020 1 1 Encounter Details Date Type Department Care Team (Latest Contact Info) Description 12/03/2018 9:45 AM CDT Ancillary Procedure [facility] [address] [place] [address] David Ba MD [address] [facility] [address] [place] [address] Hx of total knee replacement, left Discharge Disposition: Discharge to home or [...] on file 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 ??Unchanged revision left total knee arthroplasty in near-anatomic alignment. 2. ??Revision right total knee arthroplasty with osteolysis at the tibial tray bone cement interface. Electronically signed by: René Galvez M.D. Narrative 12/03/2018 10:07 AM CDT EXAMINATION: 1. ??Left knee 3 views HISTORY: ??Left knee osteoarthritis FINDINGS: 3 views submitted with comparison 07/16/2018. Redemonstrated is a left total knee arthroplasty in near-anatomic alignment. ??There are no fractures or evidence of loosening. ??Small knee effusion has resolved. ??Limited right knee evaluation demonstrates a right total knee arthroplasty with osteolysis at the tibial tray bone cement interface. Procedure Note René Galvez MD - 12/03/2018 EXAMINATION: 1. Left knee 3 views HISTORY: Left knee osteoarthritis FINDINGS: 3 views submitted with comparison 07/16/2018. Redemonstrated is a left total knee arthroplasty in near-anatomic alignment. There are no fractures or evidence of loosening. Small knee effusion has resolved. Limited right knee evaluation demonstrates a right total knee arthroplasty with osteolysis at the tibial tray bone cement interface. IMPRESSION: 1. Unchanged revision left total knee arthroplasty in near-anatomic alignment. 2. Revision right total knee arthroplasty with osteolysis at the tibial tray bone cement interface. Electronically signed by: René Galvez M.D. David Ba MD IMG XR PROCEDURES Final R esult documented in this encounter Visit Diagnoses Diagnosis Hx of total knee replacement, left documented in this encounter Care Teams Soil Technician Relationship Specialty Start Date End Date René Smallwood MD PCP - General Family Medicine 12/02/17 02/10/20 documented as of this encounter
--- OUTSIDE RECORDS SUMMARY | 2024-05-11 17:35 | XMS_ITS | Encounter Summary ---
Author Organization [facility] Healthcare Address [address] [place] [address] Care Team Providers Care Vocational Nursing Instructor Name Role Phone René Smallwood MD Primary Care Provider [phone] [phone] Reason for Visit * Diagnostic Imaging (Routine) - Closed Specialty Diagnoses / Procedures Referred By Contac t Referred To Contact Diagnoses S/P revision of total knee, left Procedures XR Knee Left 3 Views David Ba MD Phone: tel: fax: [address] Referral ID Status Reason Start Date Expiration Date Visits Re quested Visits Authorized [id number] Closed 07/15/2018 01/24/2020 1 1 Encounter Details Date Type Department Care Team (Latest Contact Info) Description 07/16/2018 1:15 PM TRUSTEE OF ESTATE Ancillary Procedure 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 Dictated by: Erick Ho M.D. Ph.D. Electronically signed by: Natalie Srivastava M.D. Narrative 07/16/2018 2:23 PM TRUSTEE OF ESTATE EXAMINATION: XR KNEE LEFT 3 VIEWS HISTORY: [...] Ph.D. Electronically signed by: Natalie Srivastava M.D. David Ba MD IMG XR PROCEDURES Final R esult documented in this encounter Visit Diagnoses Diagnosis S/P revision of total knee, left documented in this encounter Care Teams Vocational Nursing Instructor Relationship Specialty Start Date End Date René Smallwood MD PCP - General Family Medicine 12/02/17 02/10/20 documented as of this encounter
--- OUTSIDE RECORDS SUMMARY | 2024-05-11 17:35 | XMS_ITS | Encounter Summary ---
Author Organization [facility] Address [address] [place] [address] Phone Care Team Providers Care Credit Administration Officer Name Role Phone René Smallwood MD Primary Care Provider [phone] [phone] Encounter Details Date Type Department Care Team (Late st Contact Info) Description 12/08/2018 Orders Only [facility] Orthopaedic Surgery [address] 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
--- OUTSIDE RECORDS SUMMARY | 2024-05-11 17:35 | XMS_ITS | Encounter Summary ---
Author Organization [facility] Address [address] [place] [address] Phone Care Team Providers Care Title Insurance Sales Representative Name Role Phone René Smallwood MD Primary Care Provider +1 [phone] Encounter Details Date Type Department Care Team (Latest Contact Info) Description 11/24/2018 Orders Only [facility] Scanning, Provider Social History Tobacco Use Types Packs/Day Years Used Date Smoking Tobacco: Former Cigarettes 0.5 25 0 05/27/1992 - 05/27/2017 Smokeless Tobacco: Never Alcohol Use Standard Drinks/Week Comments Yes 0 (1 standard drink = 0.6 oz pur e alcohol) social Comments No Sex and Gender Information Value Date Recorded Sex Assigned at Not on file Legal Sex Female 11:20 AM TRANSPORTER RADIOLOGY Gender Identity Not on file Sexual Orientation Not on file Occupation Industry Job Start Date Job End Date unemployed Not on file Not on file Not on file documented as of this encounter Plan of Treatment Not on file documented as of this encounter Procedures Procedure Name Priority Date/Time Associated Diagnosis Comments SCAN - LABS 11/24/2018 10:51 AM CDT documented in this encounter Results * SCAN - LABS (11/24/2018 10:51 AM CDT) us Provider Scanning Final Result documented in this encounter Visit Diagnoses Not on filedocumented in this encounter Care Teams Title Insurance Sales Representative Relationship Specialty Start Date End Date René Smallwood MD PCP - General Family Medicine 12/02/17 02/10/20 documented as of this encounter
--- OUTSIDE RECORDS SUMMARY | 2024-05-11 17:35 | XMS_ITS | Encounter Summary ---
Author Organization [facility] Address [address] [place] [address] Phone Care Team Providers Care Square Shear Operator Name Role Phone René Smallwood MD Primary Care Provider +1 [phone] Encounter Details Date Type Department Care Team (Late st Contact Info) Description 04/25/2018 Orders Only [facility] Orthopaedic Surgery [address] [facility] Advanced Medicine 6th [place] [address] [place] [address] David Ba MD [address] [place] [address] History of total right knee replacement (Primary Dx) Social History Tobacco Use Types Packs/Day Years Used Date Smoking Tobacco: Former Cigarettes 0.5 24 1 2017 Smokeless Tobacco: Never Alcohol Use Standard Drinks/Week Comments Yes 0 (1 standard drink = 0.6 oz pur e alcohol) social Comments No Sex and Gender Information Value Date Recorded Sex Assigned at Not on file Legal Sex Female 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
--- OUTSIDE RECORDS SUMMARY | 2024-05-11 17:35 | XMS_ITS | Encounter Summary ---
Author Organization [facility] Address [address] [place] [address] Phone Care Team Providers Care Drawing Machine Operator Name Role Phone René Smallwood MD Primary Care Provider +1 [phone] Reason for Referral * Diagnostic Imaging (Routine) - Closed Specialty Diagnoses / Procedures Referred By Liz falcon Referred To Contact Diagnoses Hx of total knee replacement, left Procedures XR Knee Left 3 Views David Ba MD Phone: tel: fax: [facility] [address] Referral ID Status Reason Start Date Expiration Date Visits Re quested Visits Authorized [id number] Closed 11/26/2018 06/06/2020 1 1 Reason for Visit * Reason Comments Follow-up * Orthopedic (Routine) - Closed Specialty Diagnoses / Procedures Referred By Liz falcon Referred To Contact Orthopedic Surgery Diagnoses XR NEEDED L KNEE F/U Procedures RETURN Referral, Self David Ba MD [address] [facility] [address] [place] [address] Phone: tel: fax: Referral ID Status Reason Start Date Expiration Date Visits Re quested Visits Authorized [id number] Closed 12/03/2018 12/03/2019 12 12 Encounter Details Date Type Department Care Team (Late st Contact Info) Description 12/03/2018 9:30 AM CDT Office Visit [facility] Orthopaedic Surgery [address] [place] [address] 2nd Floor [address] [place] [address] David Ba MD [address] [place] [address] S/P revision of total knee, bilateral (Primary Dx) Social History Tobacco Use Types Packs/Day Years Used Date Smoking Tobacco: Former Cigarettes 0.5 25 0 05/27/1992 - 05/27/2017 Smokeless Tobacco: Never Alcohol Use Standard Drinks/Week Comments Yes 0 (1 standard drink = 0.6 oz pur e alcohol) social Comments No Sex and Gender Information Value Date Recorded Sex Assigned at Not on file Legal Sex Female 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 She is status post bilateral knee revisions by me staged at different times. The left one was May 2018. The patient states this is the one that seems to be worse for her. The right side is at least somewhat better, but she has not done very well with either of her bilateral revisions. When looking back on her preop x-rays, she had implants that were placed into quite a bit of varus. We had concerns about their positioning. She did not like the cosmetic appearance to her legs and was having pain. When asking her specifically about this, she has had no improvement with she says compared to where she was preop, she has had the same bilateral leg pain before and after surgery, and when asking specifically where this is, she indicates the whole leg but mostly distal to her knee joint and laterally down the perineal area. She also has some hypersensitivityand hyperesthesias to this area, left worse than right. PHYSICAL EXAMINATION: Extremities: Both knee incisions are well healed. No signs of erythema, induration, or drainage. She has good range of motion of 0 to 120 degrees. Stable ligamentously. No significant patellofemoral crepitus. Reasonably smooth motion, but she does have severe hypersensitivity more to her left leg than her right that goes below the knee over the distribution of the peroneal nerve region and also some around her sciatic nerve. REVIEW OF X-RAY/STUDIES: X-rays have remained to look reasonably good for both of her revisions. There are no signs of earlyloosening or failure. TREATMENT PLAN: The plan at this time is I think we need to be more aggressive to evaluate her nerves. I think she would benefit from a nerve conduction EMG study to tell whether or not she has some type of compressive neuropathy, either in her lumbar spine, her sciatic region, or around her peroneal nerve as it comes around the fibular head to see if there is something else more going on since she has had no improvement despite markedly better x-rays. The patient and her understand. We will get this set up for her to get a nerve conduction EMG with one of our podiatrists. ELECTRONICALLY SIGNED - 12/08/2018 06:36 AM David Ba MD Driver'S License Examiner Joint Preservation, Resurfacing and Replacement Service [facility] Orthopedics RN/jq cc: RENÉ SMALLWOOD MD documented in this [...] Diagnoses Diagnosis S/P revision of total knee, bilateral- Primary Hx of total knee replacement, left documented in this encounter Historical Medications * This list may reflect changes made after this encounter. DULoxetine DR (CYMBALTA) 60 mg capsule Take by mouth daily 3 10/30/2018 11/30/2019 added in this encounter Care Teams Drawing Machine Operator Relationship Specialty Start Date End Date René Smallwood MD PCP - General Family Medicine 12/02/17 02/10/20 documented as of this encounter
--- OUTSIDE RECORDS SUMMARY | 2024-05-11 17:35 | XMS_ITS | Encounter Summary ---
Author Organization [facility] Address [address] [place] [address] Phone Care Team Providers Care Mainspring Former Arbor End Name Role Phone René Smallwood MD Primary Care Provider [phone] [phone] Encounter Details Date Type Department Care Team (Late st Contact Info) Description 12/08/2018 Orders Only [facility] Orthopaedic Surgery [address] 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 documented in this encounter Plan of Treatment Not on file documented as of this encounter Visit Diagnoses Not on filedocumented in this encounter Care Teams Mainspring Former Arbor End Relationship Specialty Start Date End Date René Smallwood MD PCP - General Family Medicine 12/02/17 02/10/20 documented as of this encounter
--- OUTSIDE RECORDS SUMMARY | 2024-05-11 17:35 | XMS_ITS | Encounter Summary ---
Author Organization [facility] Address [address] [place] [address] Phone Care Team Providers Care Member Of Technical Staff Name Role Phone René Smallwood MD Primary Care Provider [phone] [phone] Reason for Referral * Diagnostic Imaging (Routine) - Closed Specialty Diagnoses / Procedures Referred By Contac t Referred To Contact Diagnoses Back pain, unspecified back location, unspecified back pain laterality, unspecified chronicity Procedures XR Spine Lumbar 2 or 3 Views David Ba MD Phone: tel: fax: [facility] [address] Referral ID Status Reason Start Date Expiration Date Visits Re quested Visits Authorized [id number] Closed 09/03/2018 03/14/2020 1 1 Reason for Visit * Reason Comments Follow-up * Orthopedic (Routine) - Closed Specialty Diagnoses / Procedures Referred By Contac t Referred To Contact Orthopedic Surgery Diagnoses bilat knee Procedures RETURN David Ba MD Phone: tel: fax: David Ba MD [address] [facility] [address] [place] [address] Phone: tel: fax: Referral ID Status Reason Start Date Expiration Date Visits Re quested Visits Authorized [id number] Closed 12/02/2017 12/02/2018 12 12 Encounter Details Date Type Department Care Team (Late st Contact Info) Description 09/03/2018 11:10 AM CDT Office Visit [facility] Orthopaedic Surgery [address] [facility] 2nd Floor [address] [place] [address] David Ba MD [address] [place] [address] History of revision of total replacement of left knee joint (Primary Dx); Back pain, unspecified back location, unspecified back pain laterality, unspecified chronicity; Postoperative pain Social History Tobacco Use Types Packs/Day Years Used Date Smoking Tobacco: Former Cigarettes 0.5 25 0 05/27/1992 - 05/27/2017 Smokeless Tobacco: Never Alcohol Use Standard Drinks/Week Comments Yes 0 (1 standard drink = 0.6 oz pur e alcohol) social Comments No Sex and Gender Information Value Date Recorded Sex Assigned at Not on file Legal Sex Female 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 Gender Identity Not on file Sexual Orientation Not on file Occupation Industry Job Start Date Job End Date unemployed Not on file Not on file Not on file documented as of this encounter Ordered Prescriptions Prescription Sig Dispense Quantity Refills Last Filled Start Date End Date gabapentin (NEURONTIN) 300 mg capsuleIndications :History of revision of total replacement of left knee joint Take 1 capsule (300 mg total) by mouth 3 (three) times a day 90 capsule 09/03/2018 9 oxyCODONE-acetamin ophen (PERCOCET) 5-325 mg per tabletIndications: Pain Take 1-2 tablets by mouth every 4 (four) hours as needed for pain 70 tablet 09/03/2018 9 documented in this encounter Progress Notes * David Ba MD - 09/03/2018 12:00 AM CDT ESTABLISHED PATIENT VISIT INTERIM HISTORY: The patient is status post left total knee arthroplasty revision 06/19/2018. The patient states bilateral knees still have constant pain. Still feels like she has some squeezing feeling over the knees and pain all over. She also has some back pain. PHYSICAL EXAMINATION: General: She is alert and oriented x3. No acute distress. Nonlabored breathing. Musculoskeletal: Bilateral knee incisions are well healed. No signs of erythema, induration, or drainage. Gentle knee range of motion is hard to detect because she has pain all over, hard to tell. Itis sort of nonspecific pain that shoots all over her legs. I am concerned because she does seem to have some type of radicular pattern to this that maybe it is coming from her lumbar spine. REVIEW OF X-RAY/STUDIES: So we did get lumbar spine x-rays that shows that she has what looks like L4-L5 and L5-S1 degenerative changes concerning for possible either disk degeneration or stenosis in this region. TREATMENT PLAN: At this time, we discussed with her the fact that she is not even more than 3 months out at this point, that our recommendation is continue with outpatient physical therapy and have them work on somelumbar back stretching things, use Neurontin 300 mg t.i.d. and pain medication, and if things are not better, we will refer her to Physiatry. Otherwise, we will see her back for routine follow- up at the 6 month check. Glad to see her back sooner if there are any issues or problems. ELECTRONICALLY SIGNED - 09/15/2018 07:10 AM David Ba MD Feed Mixer Joint Preservation, Resurfacing and Replacement Service [facility] Orthopedics RN/bp cc: RENÉ SMALLWOOD MD documented in this [...] documented in this encounter Visit Diagnoses Diagnosis History of revision of total replacement of left knee joint- Primary Back pain, unspecified back location, unspecified back pain laterality, unspecified chronicity Postoperative pain Other acute postoperative pain Back pain, unspecified back location, unspecified back pain laterality, unspecified chronicity documented in this encounter Discontinued Medications Medication Sig Discontinue Reason Start Date End Da te oxyCODONE-acetaminophen (PERCOCET) 5-325 mg per tabletIndications:Pain Take 1-2 tablets by mouth every 4 (four) hours as needed for pain Reorder 08/06/2018 09/03/2018 documented as of this encounter Care Teams Member Of Technical Staff Relationship Specialty Start Date End Date René Smallwood MD PCP - General Family Medicine 12/02/17 02/10/20 documented as of this encounter
--- OUTSIDE RECORDS SUMMARY | 2024-05-11 17:35 | XMS_ITS | Encounter Summary ---
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 David Ba MD Phone: tel: fax: [facility] (All Locations) Referral ID Status Reason Start Date Expiration Date Visits Re quested Visits Authorized [id number] Closed 12/10/2018 06/20/2020 1 1 Encounter Details Date Type Department Care Team (Late st Contact Info) Description 12/10/2018 Orders Only [facility] Orthopaedic Surgery [address] [facility] Advanced Medicine 6th [place] [address] [place] [address] David Ba MD [address] [place] [address] Hx of total knee replacement, bilateral (Primary Dx) Social History Tobacco Use Types Packs/Day Years Used Date Smoking Tobacco: Former Cigarettes 0.5 25 0 05/27/1992 - 05/27/2017 Smokeless Tobacco: Never Alcohol Use Standard Drinks/Week Comments Yes 0 (1 standard drink = 0.6 oz pur e alcohol) social Comments No Sex and Gender Information Value Date Recorded Sex Assigned at Not on file Legal Sex Female 11:20 AM CHRONIC CARE NURSE Gender Identity Not on file Sexual Orientation Not on file Occupation Industry Job Start Date Job End Date unemployed Not on file Not on file Not on file documented as of this encounter Plan of Treatment Scheduled Orders Name Type Priority Associated Diagnoses Orde r Schedule EMG/NCV -Procedure performed at: [facility] EMG [facility]; Clinical Summary: compressive neuropathy, 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 Neurology Routine Hx of total knee replacement, bilateral 1 Occurrences starting 12/10/2018 until 12/11/2019 documented as of this encounter Visit Diagnoses Diagnosis Hx of total knee replacement, bilateral- Primary documented in this encounter Care Teams Architectural Draftsman Relationship Specialty Start Date End Date Reén Smallwood MD PCP - General Family Medicine 12/02/17 02/10/20 documented as of this encounter
--- OUTSIDE RECORDS SUMMARY | 2024-05-11 17:36 | XMS_ITS | Encounter Summary ---
Author Organization [facility] Address [address] [place] [address] Phone Care Team Providers Care Sawmill Manager Name Role Phone René Smallwood MD Primary Care Provider +1 -[phone] Encounter Details Date Type Department Care Team (Late st Contact Info) Description 02/13/2018 Telephone [facility] Orthopaedic Surgery [facility] Medicine 6th [place] [address] [place] [address] David Ba MD [address] [place] [address] Social History Tobacco Use Types Packs/Day Years Used Date Smoking Tobacco: Former Cigarettes 0.5 24 1 2017 Smokeless Tobacco: Never Alcohol Use Standard Drinks/Week Comments Yes 0 (1 standard drink = 0.6 oz pur e alcohol) social Comments Unknown Sex and Gender Information Value Date Recorded Sex Assigned at Not on file Legal Sex Female 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 Gender Identity Not on file Sexual Orientation Not on file Occupation Industry Job Start Date Job End Date unemployed Not on file Not on file Not on file documented as of this encounter Miscellaneous Notes * Telephone Encounter - Carlie Meng - 02/13/2018 9:08 AM CDT OS Recon - Note PreOp Surgery Arrival Time Call Arrival Time: 7:00 Surgery Date: 02-18-18 Arrival Location: [facility] Floor Registration/Waiting NPO after MN understood: Yes\ Clear liquids until: 6:00 Confirm patient has picked up Rx for [...] bring it with them to the hospital: Yes Verify patient insurance: Yes Verify patient still has a joint curriculum coach that will be caring for them AT LEAST 3-5 days/24 hours a day post op: Yes If patient having Posterior NATHANIEL -- verify patient has a raised toilet seat & hip kit: NO Instruct patient to have joint curriculum coach at the hospital on POD#1 to attend D/C class &/or observe nursing staff/OT/PT sessions: Yes Verify changes in medical status: No: If Yes, comment: Verify clean skin integrity: Yes If No, comment: documented in this encounter Plan of Treatment Not on file documented as of this encounter Visit Diagnoses Not on filedocumented in this encounter Care Teams Sawmill Manager Relationship Specialty Start Date End Date René Smallowod MD PCP - General Family Medicine 12/02/17 02/10/20 documented as of this encounter
--- OUTSIDE RECORDS SUMMARY | 2024-05-11 17:36 | XMS_ITS | Encounter Summary ---
Author Organization [facility] Address [address] [place] [address] Phone Care Team Providers Care Credit Product Analyst Name Role Phone René Smallwood MD Primary Care Provider +1 [phone] Encounter Details Date Type Department Care Team (Late st Contact Info) Description 01/13/2018 Orders Only [facility] Orthopaedic Surgery [address] [facility] Advanced Medicine 6th [place] [address] [place] [address] David Ba MD [address] [place] [address] Failure of total knee replacement, initial encounter ([facility]) (Primary Dx) Social History Tobacco Use Types Packs/Day Years Used Date Smoking Tobacco: Former Smokeless Tobacco: Former Alcohol Use Standard Drinks/Week Comments Yes 0 (1 standard drink = 0.6 oz pur e alcohol) Comments Unknown Sex and Gender Information Value Date Recorded Sex Assigned at Not on file Legal Sex Female 11:20 AM INSPECTING SUPERVISOR Gender Identity Not on file Sexual Orientation Not on file Occupation Industry Job Start Date Job End Date unemployed Not on file Not on file Not on file documented as of this encounter Ordered Prescriptions Prescription Sig Dispense Quantity Refills Last Filled Start Date End Date mupirocin (BACTROBAN) 2 % ointment APPLY TO NOSTRILS TWICE A DAY FOR 5 DAYS PRIOR TO SURGERY. 22 g 01/13/2018 8 documented in this encounter Plan of Treatment Not on file documented as of this encounter Results * CRP (acute phase) (02/07/2018 1:53 PM CDT) CRP 9.0 <=10.0 mg/L [facility] Blood specimen (specimen) 02/07/2018 1:53 PM CDT 02/07/2018 2:25 PM CDT Narrative [facility] - 02/07/2018 3:00 PM CDT David Ba MD LAB BLOOD ORDERABLES Graciela l Result Performing Organization Address [facility] Co de Phone Number [facility] [address] * Erythrocyte sedimentation rate (02/07/2018 1:53 PM CDT) Pathologist [facility] Erythrocyte sedimentation rate 8 1 - 30 mm/hr [facility] Blood specimen (specimen) 02/07/2018 1:53 PM CDT 02/07/2018 2:23 PM CDT Narrative [facility] - 02/07/2018 5:00 PM CDT us David Ba MD LAB BLOOD ORDERABLES Graciela l Result Performing Organization Address [facility] Co de Phone Number [facility] [place] [address] documented in this encounter Visit Diagnoses Diagnosis Failure of total knee replacement, initial encounter (HCC)- Primary documented in this encounter Care Teams Credit Product Analyst Relationship Specialty Start Date End Date René Smallwood MD PCP - General Family Medicine 12/02/17 02/10/20 documented as of this encounter
--- OUTSIDE RECORDS SUMMARY | 2024-05-11 17:36 | XMS_ITS | Encounter Summary ---
Author Organization [facility] Healthcare Address [address] [place] [address] Care Team Providers Care Repair Manager Name Role Phone René Smallwood MD Primary Care Provider [phone] Encounter Details Date Type Department Care Team (Late st Contact Info) Description 12/30/2017 9:20 PM CDT Lab [address] [address] Chronic pain of both knees Social History Tobacco Use Types Packs/Day Years Used Date Smoking Tobacco: Former Smokeless Tobacco: Former Alcohol Use Standard Drinks/Week Comments Yes 0 (1 standard drink = 0.6 oz pur e alcohol) Comments Unknown Sex and Gender Information Value Date Recorded Sex Assigned at Not on file 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 Gender Identity Not on file Sexual Orientation Not on file Occupation Industry Job Start Date Job End Date unemployed Not on file Not on file Not on file documented as of this encounter Plan of Treatment Not on file documented as of this encounter Procedures Procedure Name Priority Date/Time Associated Diagnosis Comments AEROBIC AND ANAEROBIC CULTURE AND GRAM STAIN Routine 12/30/2017 9:17 PM CDT Chronic pain of both knees AEROBIC AND ANAEROBIC CULTURE AND GRAM STAIN Routine 12/30/2017 9:17 PM CDT Chronic pain of both knees BODY FLUID CRYSTAL Routine 12/30/2017 1: 28 PM CDT Chronic pain of both knees documented in this encounter Results * Aerobic and anaerobic culture and gram stain Aspirate Knee, left (12/30/2017 9:17 PM CDT) Direct Specimen Exam Stain: Rare polymorphonuclear leukocytes seen. Other cellular material present. No organisms seen. [facility] Report Final Report: No growth [facility] Aspirate (Knee, left) 12/30/2017 9:17 PM CDT 12/30/2017 10:25 PM CDT Narrative [facility] - 01/03/2018 11:28 AM CDT Testing performed by [facility] Microbiology Laboratory ([phone]) Specimens submitted from normally sterile body sites will have all bacterial morphotypes identified. ??Specimens that contain grossly mixed delory and/or are from body sites that are not normally sterile will be examined for Staphylococcus aureus, Pseudomonas aeruginosa, beta-hemolytic strep, vancomycin-resistant Enterococcus, Bacteroides fragilis, Clostridium perfringens and fungus. ??If any of these are isolated, the organism will be reported. Current interpretive data was last revised on 2016. David Ba MD LAB MICROBIOLOGY - GENERA L ORDERABLES Final Result [facility] Department [place] [address] * Aerobic and anaerobic culture and gram stain Aspirate Knee, right (12/30/2017 9:17 PM CDT) Direct Specimen Exam Stain: Few polymorphonuclear leukocytes seen. No organisms seen. [facility] Report Final Report: No growth [facility] Aspirate (Knee, right) 12/30/2017 9:17 PM CDT 12/30/2017 10:35 PM CDT [facility]ative [facility] 01/03/2018 11:28 AM CDT Testing performed by [facility] Microbiology Laboratory ([phone]) Specimens submitted from normally sterile body sites will have all bacterial morphotypes identified. ??Specimens that contain grossly mixed delroy and/or are from body sites that are not normally sterile will be examined for Staphylococcus aureus, Pseudomonas aeruginosa, beta-hemolytic strep, vancomycin-resistant Enterococcus, Bacteroides fragilis, Clostridium perfringens and fungus. ??If any of these are isolated, the organism will be reported. Current interpretive data was last revised on 2016. us David Ba MD LAB MICROBIOLOGY - GENERA L ORDERABLES Final Result Performing Organization Address City/[facility]/ZIP Co de Phone Number [facility] [place] [address] * Crystal analysis, body fluid (12/30/2017 1:28 PM CDT) Specimen type, fld Synovial [facility] Crystals None Seen None Seen [facility] Fluid 12/30/2017 1:28 PM CDT 12/30/2017 9:20 PM CDT Narrative [facility] - 12/30/2017 9:57 PM CDT us David Ba MD LAB BODY FLUIDS AND STOOL S ORDERABLES Final Result Performing Organization Address [facility] [place] [address] documented in this encounter Visit Diagnoses Diagnosis Chronic pain of both knees documented in this encounter Care Teams Repair Manager Relationship Specialty Start Date End Date René Smallwood MD PCP - General Family Medicine 12/02/17 02/10/20 documented as of this encounter
--- OUTSIDE RECORDS SUMMARY | 2024-05-11 17:36 | XMS_ITS | Encounter Summary ---
Author Organization [facility] Healthcare Address [address] [place] [address] Care Team Providers Care Refrigeration Tech Name Role Phone René Smallwood MD Primary Care Provider [phone] Encounter Details Date Type Department Care Team (Late st Contact Info) Description 02/18/2018 11:00 AM CDT - 02/18/2018 1:45 PM CDT Surgery [facility] Operating Room [address] [place] [address] David Ba MD [address] [facility] [address] [place] [address] REVISION ARTHROPLASTY TOTAL KNEE-DEPUY Surgery Details Date/Time Status Location OR Service Patient Class Case Class Case Type Trauma Case? 02/18/2018 11:00 AM Posted [facility] OR POD 2 215 Orthopaedics Surgery Admit Elective Panel 1 Procedure LRB Anes Op Region Wound Class Comments REVISION ARTHROPLASTY TOTAL KNEE-DEPUY Right Spinal Knee Class I - Clean Surgeon Surgeon Role Service Panel David Ba MD Primary Orthopaedics 1 Leon Coppola MD Fellow Orthopaedics 1 documented in this encounter Social History Tobacco Use Types Packs/Day Years Used Date Smoking Tobacco: Former Cigarettes 0.5 24 2017 Smokeless Tobacco: Never Alcohol Use Standard Drinks/Week Comments Yes 0 (1 standard drink = 0.6 oz pur e alcohol) social Comments No Sex and Gender Information Value Date Recorded Sex Assigned at Not on file 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 Gender Identity Not on file Sexual Orientation Not on file Occupation Industry Job Start Date Job End Date unemployed Not on file Not on file Not on file documented as of this encounter Last Filed Vital Signs Vital Sign Reading Time Taken Comments Blood Pressure 102/59 02/18/2018 1:40 PM CDT Pulse 48 02/18/2018 1:40 PM CDT Temperature 36 ??C (96.8 ??F) 02/18/2018 1:30 PM CDT Respiratory Rate 11 02/18/2018 1:40 PM CDT Oxygen Saturation 100% 02/18/2018 1:40 PM CDT Inhaled Oxygen Concentration - - Weight - - Height - - Body Mass Index - - documented in this encounter Discharge Summaries * Anahy Tejeda, BUHR MILL OPERATOR - 02/19/2018 11:03 AM CDT Inpatient Discharge Summary BRIEF OVERVIEW Admitting Provider: David Ba MD Discharge Provider: David Ba MD Primary Care Physician at Discharge: René Smallwood MD [phone] Admission Date: 02/18/2018 Discharge Date: 02/19/2018 Primary Discharge Diagnosis: PRESENCE OF UNSPECIFIED ARTIFICIAL KNEE JOINT/REVISION ARTHROPLASTY TOTAL KNEE-DEPUY Secondary Discharge Diagnosis: Failed total knee arthroplasty (CMS/HCC) Migraine Anxiety * No resolved hospital problems. * DETAILS OF HOSPITAL STAY Presenting Problem/History of Present Illness: Failed total knee arthroplasty (CMS/HCC) The patient is a 52 y.o. year old female cared for by Dr.Ryan Ba. The risks, benefits, alternatives and complications of a revision right Total Knee Arthroplasty were discussed with the patient at length prior to surgery. The patient elected to proceed with a surgical intervention given the significant influence on their quality of life. Informed consent was obtained prior to surgery. Hospital Course: The patient was admitted on 02/18/2018 and underwent revision right Total Knee Arthoplasty. The patient tolerated the procedure well and was taken in stable condition to the postoperative recovery room and then transferred to the orthopedic floor in stable condition. The patient progressed well and was able to be weaned off IV opiates. The patient's EPIC nursing assessment on admission to floor inititiated suicidal precautions that were removed by the attending physician on POD after full assessment of suicide risk. The patient stated that she has felt hopeless The patient participated with physical and occupational therapy and was deemed stable for discharge. She was maintained on Aspirin for deep venous thrombosis prophylaxis. Pain was adequately maintained on oral opiates. The patient was discharged in stable condition to home with home health care on 02/19/2018. Active Issues Requiring Follow-up: none Test Results Pending at Discharge: Order Current Status Type and screen In process Operative Procedures Performed: Procedure(s): REVISION ARTHROPLASTY TOTAL KNEE-DEPUY Other Procedures: Pertinent Test Results: Discharge Details Physical Exam at Discharge: Discharge Condition: good Pulse: 78 Resp: 16 BP: 106/67 Temp: 36.8 ??C (98.2 ??F) Weight: 83 kg (183 lb) Pertinent Exam Findings at Discharge: On the day of discharge, the patient was afebrile with stablevital signs. Examination of the right lower extremity revealed the patient was neurovascularly intact. Incision was clean, dry, and intact. Pain was adequately maintained on oral opiates. Discharge Disposition: Final discharge disposition Home with Home health Code Status at Discharge: Full code Discharge Instructions: Activity Instructions Post-Discharge Activity Instructions - Knee * Do NOT put pillows under your knee - we want your leg to be as straight as possible. Place a rolled towel under your ankle while lying in bed or when leg is elevated on chair/ottoman. This will help straighten your leg. * Apply ICE to your KNEE up to 20 minutes an hour, as needed, while awake- especially after therapy and home exercises. * Elevate your operative leg, keeping your toes higher than your knee and your knee higher than youheart. Use pillows (lengthwise) to create a ramp that will support your entire leg AND keep your knee as straight as possible. Try to do this position for 40 minutes about 3 times a day. * DO NOT REST your operative leg on the floor longer than 30 minutes at a time. Always put your heel up on another chair/ottoman. Take frequent short walks around your home/room daily to help decrease the swelling. * Use your Incentive Spirometer 10 deep breaths every hour while awake. Weight bearing Restrictions (specify) Restrictions RLE: Weight Bearing as Tolerated Diet Instructions Adult Discharge Diet Diet Type: Return to previous diet Other Instructions Call provider for: Temperature -Temperature greater than 38.5 degrees C or 101 degrees F Call provider for: difficulty breathing or chest pain Call provider for: extreme fatigue Call provider for: hives Call provider for: persistent dizziness or light-headedness Call provider for: persistent nausea or vomiting Call provider for: redness, tenderness, or signs of infection (pain, swelling, redness, odor or green/yellow discharge around incision site) Call provider for: severe uncontrolled pain Call provider for: (Specify in comments) CALL YOUR SURGEON'S OFFICE AT during office hours or the Exchange number at or toll free for after hours, weekends or holidays. Call provider for: (Specify in comments) Any new drainage, increased drainage, or blistering around incision. If your incision opens, place a clean dressing on it and call your surgeon's office immediately Call provider for: headache, visual disturbances, weakness and speech changes Post-Discharge Dressing Care - (Specify in comments) * Your incision is closed with Prineo (a clear liquid sealant and mesh) that will remain on your incision for 21 days after surgery. During your first home health visit - the nurse will remove the Telfa (non-adherent dressing), webril (white dressing rolled around leg) and benton wrap to evaluate yourincision to ensure it is sealed and perform return demonstration regarding wound care management and removal of Prineo. DO NOT SCRATCH, RUB, SCRUB OR PICK AT THE PRINEO-- this could cause it to loosen or come off before your incision is healed. * Reapply benton wrap from toes to thigh once incision has been assessed to help reduce swelling. Continue to use benton wrap for 3 weeks after surgery. May remove for showering and at night if needed. * You may shower once you have been discharged from the hospital, allowing the water to rinse over the Prineo and PAT to dry. * The patient will remove mesh 21 days after surgery. At the time of Prineo removal, rub a Petroleum based ointment such as Vaseline on the entire width and length of the Prineo tape to loosen glue. Then, loosen one of the edges and slowly and gently peel it back from the incision. * If you notice the Prineo beginning to loosen or coming off, contact your surgeon???s nurse for further instructions. * Do NOT submerge your incision (in a tub, hot tub, pool, sampson, river, etc.) until it is healed andyour surgeon says it???s ok. Do NOT use lotion, oil, alcohol or cream on your incision. Walker Wheeled walker The [id number] evaluation was performed on: 02/19/2018 Walker or crutches for all ambulation Ambulatory referral to Home Health Service Line: Home Health Primary disciplines requested: [facility] Physical Therapy Home Health Services: Therapy to Eval/ Treat Physician to follow patient's care (the person listed here will be responsible for signing ongoing orders): Referring Provider Requested Start of Care Date: Tomorrow I attest that I or another qualified licensed provider saw the patient 90 days prior to or 30 days post admission and this face to face encounter meets the necessary Home Health requirements. The face to face encounter occurred on (date): 02/19/2018 The encounter with the patient was in whole, or in part, for the following medical condition, whichis the primary reason for home health care. (List medical condition): RTKA Revision I certify that, based on my findings, the following services are medically necessary skilled home health services: Therapy to Eval/ Treat Clinical findings that support the need for home care: Wound requiring care, assessment, and instruction Medical condition requiring skilled assessment/education I certify that my clinical findings support patient's homebound status. Homebound criteria met because: Requires assistance of another to leave home safely Pain and impaired mobility post-op [facility] is your home care provider and will contact you within 24 hours to scheduleyour first home visit. If you do not hear from them within that timeframe, please call them at [phone] to schedule. [facility] is the provider of your active care pumps. Please call them at if you have any questions or concerns about your equipment. Discharge Medications: Marnie Roque Home Medication Instructions HANNY:[id number] Printed on:02/19/18 1103 Medication Information aspirin 325 mg EC tablet Take 1 tablet (325 mg total) by mouth 2 (two) times a day. diazePAM (VALIUM) 5 mg tablet Take 5 mg by mouth nightly. at bedtime. levothyroxine (SYNTHROID, LEVOTHROID) 100 mcg tablet Take 100 mcg by mouth every morning. oxyCODONE-acetaminophen (PERCOCET) 5-325 mg per tablet Take 1-2 tablets by mouth every 4 (four) hours as needed for pain. polyethylene glycol (MIRALAX) 17 gram packet Take 1 packet (17 g total) by mouth daily as needed (constipation). senna-docusate (PERICOLACE) 8.6-50 mg Take 2 tablets by mouth 2 (two) times a day. You may take up to 4 tabs twice daily if needed for constipation. HOLD for diarrhea. topiramate (TOPAMAX) 25 mg tablet Take 25 mg by mouth 4 (four) times a day. Outpatient Follow-Up: Future Appointments Date Time Provider Department Center 03/17/2018 9:40 AM David Ba MD [facility] 969 2 OS Cosigned by David Ba MD at 02/20/2018 12:11 PM CDT documented in this encounter Discharge Instructions * Discharge Instructions* Anahy Tejeda NP - 02/19/2018 11:03 AM CDT * Aspirin EC 325mg - take twice a day for 6 weeks and then stop when prescription is finished. * Wear your Active Care Pump sleeve(s) at all times for 10 days. Remove your sleeve every morning for 30 minutes to wash your legs and remove again every evening for 30 minutes to allow your skin to air dry. * Do not take non-steroidal anti-inflammatory drugs (NSAIDs) that your surgeon does not prescribe for 6 weeks after surgery. Examples of these medications include Ibuprofen, Advil, Aleve, Osteo-Biflex, Mobic, Indocin, Diclofenac, etc. If you have questions about medication, ask your pharmacist. * Unless prescribed by your surgeon, do not take Tylenol/Acetaminophen until your pain medications are finished. Your pain medication has Tylenol/Acetaminophen in it. * DO NOT DO ANT ROUTINE DENTAL CLEANING FOR 6 MONTHS AFTER YOUR JOINT REPLACEMENT SURGERY. You willneed to take antibiotics before any dental procedure. It is very important that you call your surgeon for an antibiotic prescription. Constipation Prevention:?? You were given a prescription for Senna S 8.6/50mg at discharge from hospital. Start by taking 2 tablets twice daily. If no bowel movement within 48 hours of surgery, increase to 4 tablets twice daily. If no bowel movement within 24 hours of increasing Senna S dose, please purchase oegi-sgl-[id number] at your local pharmacy and dissolve 1 capful in 4-8oz. fluids once daily until you have bowel movement in addition to 2 tablets Senna S twice daily. If no bowel movement within 48 hours of starting Miralax or if you are not passing any gas after being discharged from the hospital, please contact your surgeon's office for further instructions. HOLD medications if you start to experience diarrhea. * Discharge Instr - Other Orders* Zac Berry RN - 02/19/2018 10:40 AM CDT [facility] is your home care provider and will contact you within 24 hours to scheduleyour first home visit. If you do not hear from them within that timeframe, please call them at [phone] to schedule. [facility] is the provider of your active care pumps. Please call them at if you have any questions or concerns about your equipment. documented in this encounter Medications at Time of Discharge aspirin 325 mg EC tabletIndications :Deep Vein Thrombosis Prevention Take 1 tablet (325 mg total) by mouth 2 (two) times a day. 84 tablet 02/19/2018 05/30/2018 diazePAM (VALIUM) 5 mg tabletIndications :anxiety Take 5 mg by mouth nightly as needed at bedtime. 5 12/16/2017 04/09/2023 levothyroxine sodium (TIROSINT) 112 mcg capsuleIndication s:hypothyroidism Take 1 capsule (112 mcg total) by mouth every morning 12/30/2017 04/09/2023 oxyCODONE-acetami nophen (PERCOCET) 5-325 mg per tabletIndications :Pain Take 1-2 tablets by mouth every 4 (four) hours as needed for pain. 70 tablet 02/18/2018 03/17/2018 polyethylene glycol (MIRALAX) 17 gram packetIndications :constipation Take 1 packet (17 g total) by mouth daily as needed (constipation ). 02/19/2018 05/30/2018 senna-docusate (PERICOLACE) 8.6-50 mgIndications:con stipation Take 2 tablets by mouth 2 (two) times a day. You may take up to 4 tabs twice daily if needed for constipation. HOLD for diarrhea. 80 tablet 1 02/19/2018 05/30/2018 topiramate (TOPAMAX) 25 mg tabletIndications :Migraine Prevention Take 100 mg by mouth 2 (two) times a day 12/30/2017 07/12/2021 documented as of this encounter Ordered Prescriptions Prescription Sig Dispense Quantity Refills Last Filled Start Date End Date senna-docusate (PERICOLACE) 8.6-50 mgIndications:cons tipation Take 2 tablets by mouth 2 (two) times a day. You may take up to 4 tabs twice daily if needed for constipation. HOLD for diarrhea. 80 tablet 1 02/19/2018 9 polyethylene glycol (MIRALAX) 17 gram packetIndications: constipation Take 1 packet (17 g total) by mouth daily as needed (constipation ). 02/19/2018 9 aspirin 325 mg EC tabletIndications: Deep Vein Thrombosis Prevention Take 1 tablet (325 mg total) by mouth 2 (two) times a day. 84 tablet 02/19/2018 9 oxyCODONE-acetamin ophen (PERCOCET) 5-325 mg per tabletIndications: Pain Take 1-2 tablets by mouth every 4 (four) hours as needed for pain. 70 tablet 02/18/2018 8 oxyCODONE-acetamin ophen (PERCOCET) 5-325 mg per tabletIndications: Pain,to be Filled 02/24/2018 Take 1-2 tablets by mouth every 4 (four) hours as needed for pain. 70 tablet 02/24/2018 8 documented in this encounter Discharge Disposition Disposition Code Departure Means Destination Discharge to home or self care documented in this encounter Progress Notes * Joseph Tucker MD - 02/19/2018 10:46 AM CDT Ortho Recon Daily Progress Subjective This patient is postoperative day 1 following R TKA revision Interval History: No issues overnight. Not endorsing any SI this morning. Has been OOB without issue. AFVSS. Pain controlled. H/H 12.2/36.7. NVI on exam. Objective Vitals: 24hr Min/Max: Temp Min: 36 ??C (96.8 ??F) Max: 37.3 ??C (99.1 ??F) Pulse Min: 42 Max: 82 BP Min: 94/65 Max: 133/58 Resp Min: 9 Max: 30 SpO2 Min: 92 % Max: 100 % Most Recent : Vitals: 02/19/18 0748 BP: 119/66 Pulse: 80 Resp: 16 Temp: 36.8 ??C (98.2 ??F) SpO2: 97% I/O last 2 completed shifts: In: 3515.1 [I.V.:3515.1] Out: 2940 [Urine:2690; Blood:250] No intake/output data recorded. Surgical Site 02/18/18 Right Leg (Active) Site Assessment [facility] 02/19/2018 8:00 AM Veronika-wound Assessment [facility] 02/19/2018 8:00 AM Closure Unable to assess 02/19/2018 8:00 AM Drainage Amount None 02/19/2018 8:00 AM Drainage Description [facility] 02/18/2018 5:20 PM Drainage Odor No odor 02/19/2018 8:00 AM Dressing Status Clean/Dry/Intact 02/19/2018 8:00 AM Dressing [place]enton wrap 02/19/2018 8:00 AM Physical Exam: Awake, alert, oriented No acute distress Breathing regular and unlabored Dressing clean and dry Sensation intact in the superficial peroneal, deep peroneal, and tibial nerves 5/5 strength TA, GS, EHL, FHL Dorsalis pedis pulse on affected limb palpable Lab/Radiology/Diagnostic Review: Imaging review: I have reviewed the result(s) well fixed implant Assessment/Plan Remove Land Catheter Weight bearing:Weight bearing as tolerated right lower extremity Mobilize with Physical therapy and Occupational therapy Pain: controlled on current regimen DVT prophylaxis: Aspirin/Active Care Pumps Additional needs: none Discharge planning: Home with home health * Zac Berry RN - 02/19/2018 10:35 AM CDT 02/19/18 1031 Discharge Summary Chart reviewed For Medical Necessity Does patient have a planned readmission to hospital planned? No Discharge Disposition Home with Home Health (PT/OT/RN) Equipment/Provider Needs Home Equipment Needs Identified;Home Provider Services Needs Identified Home Care Agency Information Home Care Agency Type #1: (SN/PT) Home Care Agency Name [facility] Home Care Agency Contact [place] to [facility] Order Faxed to [phone] Home Equipment Information Home Equipment Provider Name [facility] Home Equipment Provider Phone Number Home Equipment Provider Contact [place] to [place] Equipment Ordered active care pumps Discharge Additional Assistance Does the patient need discharge transport arranged? No Post Discharge Care Provider Post Discharge Care Plan Next level of care provider has access to complete EMR Report Per DCAM ADD: today Medical Necessity: medically stable. Referrals: [facility] ([place] at agency notified of discharge today); [facility] for active care pumps; patient already has wheeled walker Support at Discharge: family Transportation: family Follow up appointment: Primary team to schedule * Zac Berry RN - 02/19/2018 10:33 AM CDT 02/19/18 1029 Patient Information Primary Caregiver Self Support System Spouse/Significant Other Prior Level of Functioning Durable Medical Equipment Walker (wheeled);Cane (single prong);Crutches;Tub Bench Living Arrangement House;Lives with someone Behavior Oriented Income Information Income Source Employed Income/Expense Information Income meets expenses Potential Discharge Needs Discharge Potential discharging to home with home health Home Health [facility];Physical therapy Anticipated discharge level of care Return Home Communications Patient choice (Home Health/Hospice) list given to patient/wireless sales representative? Yes Fiduciary Responsibility Patient/Designated decision maker was informed of [facility] fiduciary relationship as necessary Medical Necessity: presented for total knee revision with a history of failed total knee arthroplasty Additional Information/Options Discussed: Confirmed patient's phone number, address, primary care physician, and home pharmacy. Explained role and purpose of disease case manager rn. The patient does not have any home care preferences at this time. Plan Includes: discharging to home with home health Insurance verified as: [employer] Prescription Coverage: yes Admission source: home PCP verified as: Dr. René Smallwood Outpatient Pharmacy: [facility] * Leon Coppola MD - 02/19/2018 6:18 AM CDT S/p R TKA Revision 02/18 Doing well this AM. No events overnight. Denies CP or SOB this morning. AVSS Normal Chest Rise RLE Dressing CDI EHL, AT, GSC+ WWP DP sensation intact Chem/LFT Lab History Some values may be hidden. Unless noted otherwise, only the newest values recorded on each date aredisplayed. Labs-Chem/LFT Latest Ref Range 02/07/18 02/18/18 Sodium 135 - 145 mmol/L 143 139 Creatinine 0.60 - 1.10 mg/dL 0.67 0.64 Bilirubin, total 0.1 - 1.2 mg/dL 0.3 0.5 AST 10 - 45 Units/L 25 24 ALT 7 - 45 Units/L 38 31 CrCl- Actual Body Weight (Cockcroft-Gault) 128.6 133.2 Hematology Lab History Some values may be hidden. Unless noted otherwise, only the newest values recorded on each date aredisplayed. Labs - Hematology Latest Ref Range 02/07/18 02/18/18 WBC 3.8 - 9.9 K/cumm 9.4 14.8 (A) Hgb 11.9 - 15.5 g/dL 13.8 12.2 Hct 35.6 - 45.5 % 43.0 36.7 Plt 150 - 400 K/cumm 285 244 Neutrophils, abs 1.7 - 6.5 K/cumm 13.2 (A) (A) Abnormal value Plan: S/p R TKA Revision Progressing well WBAT RLE ASA and SCD's for DVT ppx OOB with PT PO pain control Possible DC home today. Cosigned by David Ba MD at 02/20/2018 2:47 PM CDT documented in this encounter H&P Notes * Leon Coppola MD - 02/18/2018 7:58 AM CDT I have reviewed the H&P, examined the patient, and endorse the findings as written. Plan of Care : Based on the above findings, I consider Marnie Roque to be an acceptable risk for : Procedure(s): REVISION ARTHROPLASTY TOTAL KNEE-DEPUY Source Note - Kristen Granda NP - 02/07/2018 12:48 PM CDT Center for Preoperative Assessment and Planning Preoperative Evaluation Record CPAP Clinic at [facility] ([facility]) Anesthesia Evaluation Marnie Roque is a 52 y.o. female Procedure(s): REVISION ARTHROPLASTY TOTAL KNEE-DEPUY HISTORY HPI Marnie Roque is a 52 y.o. female who is being evaluated prior to undergoing revision arthroplasty total knee-lane right. Past Medical History Information obtained from: patient and chart. Neurological + Psychiatric history - depression and anxiety Pertinent negatives: seizures; CVA/stroke; TIA; CEA; ICA stenosis and carotid artery stent Cardiovascular Pertinent negatives: hypertension ; CAD ; VA ; CABG ; valve replacement; atrial fibrillation; [...] opioid use disorder Endocrine / Other + Obesity (BMI >30) Pertinent negatives: diabetes mellitus; thyroid disease; cancer history and rheumatological disease Functional Capacity Functional capacity: <4 METs Review of Systems + muscle weakness (bilateral [...] classification of planned procedure: intermediate cardiac risk. Initial preoperative evaluation discussed with: GERDA FELICIANO Additional comments: Marnie Roque is a 52 y.o. female who is being evaluated prior to undergoing an intermediate cardiac risk surgery. Revised Cardiac Risk Index factors are (none) for a total RCRI of 0 out of 6. Functional capacity is <4 METs (specifically:limited ambulation d/t knee pain ). Discussed with CPAP attending Less than 4 METS d/t knee pain, denies SOB and CP, No family cardiac history. No further testing required. Obstructive sleep apnea (DANIEL) screening status is STOP-Bang=1 suggesting low risk for DANIEL. Blood bank needs for day of procedure: T&C 1 unit pRBCs Pending labs/tests include: CBC, CMP, T&S and Urinalysis flex, Vit d, CRP, ESR Preoperative evaluation performed by Kristen Granda NP on 02/07/18 at 1:33 PM. . Follow up note Labs reviewed and are without significant findings. CPAP process complete. Follow-up completed by: Yenni Meraz NP on 02/10/18 at 9:34 AM Patient Active Problem List Diagnosis ??? Failed total knee arthroplasty (CMS/HCC) Past Medical History: Diagnosis Date ??? Anxiety ??? Arthritis ??? Depression ??? Migraines ??? Obesity Past Surgical History: Procedure Laterality Date ??? KNEE SURGERY ??? TUBAL LIGATION ??? WRIST FRACTURE SURGERY OB History No data available No Known Allergies HOME MEDICATIONS : diazePAM (VALIUM) 5 mg tablet ketorolac (TORADOL) 10 mg tablet levothyroxine (SYNTHROID, LEVOTHROID) 100 mcg tablet mupirocin (BACTROBAN) 2 % ointment topiramate (TOPAMAX) 25 mg tablet traMADol (ULTRAM) 50 mg tablet Current Outpatient Prescriptions: ??? diazePAM (VALIUM) 5 mg tablet ??? ketorolac (TORADOL) 10 mg tablet ??? levothyroxine (SYNTHROID, LEVOTHROID) 100 mcg tablet ??? mupirocin (BACTROBAN) 2 % ointment ??? topiramate (TOPAMAX) 25 mg tablet ??? traMADol (ULTRAM) 50 mg tablet Social History Smoking Status ??? Former Smoker Smokeless Tobacco ??? Former User Alcohol Use ??? Yes Drug Use No Family History Problem Relation Age of Onset ??? Arthritis Other ??? Mental illness Other PAT Physical Exam Airway Exam: Mallampati: II Cervical ROM: FROM Cardiovascular Exam: Rate: regular Rhythm: regular Negative for peripheral edema Pulmonary Exam: LCTA EENT Exam: trachea midline Dental Exam: Appears intact Skin Exam: Skin is warm. Turgor is normal. Abdominal exam: Abdomen is soft. Bowel sounds are present. Current state: Patient's current state is cooperative. [...] labs within last 720 hours. Anesthesia Plan documented in this encounter Nursing Notes * Abby Covington RN - 02/18/2018 8:31 PM CDT Pt arrived to unit 7484A from OR at 1720. While completing admission assessment navigator patient admitted to having previous suicidal thoughts such as not wanting to wake up and no longer wanting tolive. She stated that this mindset was noted months ago with health issues/pain and has since subsided. [facility] promoted suicide precautions and Rachael HACKETT RN was notified. Sol Francisco NP was also notified and verified that suicide precautions needed to be initiated which was done immediately. documented in this encounter Miscellaneous Notes * Plan of Care - Tasia Farias RN - 02/19/2018 10:33 AM CDT Goals: Clinical Goals for the Shift: pain managment Summary: Patient updated on plan of care and plan for discharge today. Patient able to verbalize understanding of information given. Will cont to monitor * Plan of Care - Cortney Boggs RN - 02/19/2018 3:00 AM CDT Goals: Clinical Goals for the Shift: pain managment Summary: Pain managed at a tolerable level with PO pain meds, Patient still on suicide precautions as ordered, sitter at bedside, no unsafe behavior witnessed by this RN or sitter, will continue to monitor. * Plan of Care - Abby Covington RN - 02/18/2018 6:30 PM CDT Activity: ??? Ability to avoid complications of mobility impairment will improve Progressing ??? Ability to tolerate increased activity will improve Progressing Coping: ??? Ability to cope will improve Progressing Health Behavior: ??? Understanding of discharge needs will improve Progressing Health Behavior: ??? Identification of resources available to assist in meeting health care needs will improve Progressing ??? Decreased thoughts of self harm Progressing Lack of Knowledge: ??? Ability to make informed decisions regarding treatment will improve Progressing Medication: ??? Compliance with prescribed medication regimen will improve Progressing Physical Regulation: ??? Complications related to the disease process, condition or treatment will be avoided or minimized Progressing Respiratory: ??? Ability to maintain a clear airway will improve Progressing Safety: ??? Ability to remain free from injury will improve Progressing ??? Verbalizations of safety and security will increase Progressing Self Concept/Coping: ??? Level of anxiety will decrease Progressing Self-Concept: ??? Ability to disclose and discuss suicidal ideas will improve Progressing ??? Ability to verbalize positive feelings about self will improve Progressing Sensory: ??? Pain level will decrease Progressing Skin Integrity: ??? Signs of wound healing will improve Progressing Tissue Perfusion: ??? Ability to maintain adequate tissue perfusion will improve Progressing Goals: Clinical Goals for the Shift: Pain management, Advancement to regular diet Summary: Pt is aware of established goals and care plan and pt and family have agreed to actively work towards goals and education for best progression of health. * Op Note - David Ba MD - 02/18/2018 12:00 AM CDT Attending Physician David Ba M.D. First Warp Bleaching Vat Tender Leon Coppola M.D. 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 Procedure Performed Right total knee arthroplasty revision. Implants Utilized [employer] Revision knee system. Femur was a size 5 with a 16 x 60 mm stem and augments posteriorly of 4 mm medially, 8 mm laterally and distal augments of 8 mm medially and 8 mm laterally. Tibial component was a size 4 tibial baseplate with a size 12 x 60 mm stem and a 5 mm logan-build on the medial side. Polyethylene insert was a 12 mm posterior stabilized. History Patient was seen and evaluated in my outpatient clinic. She had an unfortunate course in that she had previously undergone several surgeries on her knee, and when she saw me, bilateral knees were in extreme varus position of her tibial components with gross laxity of the knee in both extension and flexion with recurrent effusions, severe pain to the point where she could essentially not even ambulate. Because of this, we did work her up for infection. It was negative and we discussed with her revision total knee replacement discussing the risks, benefits, complications, and alternatives. Operative Course Patient was seen and evaluated in the preoperative holding area. All necessary informed consents were obtained. The patient's correct operative site was marked. She was taken to the operating room. After successful induction of spinal anesthesia, patient received perioperative antibiotics and her right knee was prepped and draped in the usual sterile fashion. Utilizing her previous incision, which was slightly medial to the midline, sharp dissection was carried down through skin and subcutaneous fat down to the layer of the extensor mechanism and a medialparapatellar arthrotomy was performed. Upon entering the joint, we were able to establish that the patient had gross laxity in both flexion and extension, and then at that point we went ahead and just removed femoral and tibial components. These were [employer] implants. The femur was cementless. The tibia was cemented. It came out very easily on both sides. There was a spot weld of bone ingrowth onthe femoral side of about 25%. On the tibial side, we could just tap and the whole thing came out with a short keel. We then prepared the bone on the femoral and tibial side using the [employer] revision system. On the medial aspect of the tibia, there was a defect from where the previous cut had taken place that was too much in varus. I did decide that I did not want to cut down that much on the lateral side so we just made a freshening cut on the lateral side with the stylus, 2 mm resection, and then used a 5 mm logan-build. We used the same size implants as mentioned above, trialing a size 5 femur with a stem that was 16 x 60 with augments posteriorly of 4 mm medially, 8 mm laterally, and distally it had 8 mmto bring the joint line down. I also went to a size 5 to make sure that we had stability in flexion since it looked like on her preoperative x-rays that her femoral component was undersized and maybeeven slightly notched, which would probably lead to some soft-tissue laxity in flexion. I then finalized with a tibia size 4 with a 12 x 60 mm stem, a 5 mm logan-augment medially, and then trialed with a 12 mm poly and had excellent stability, markedly better in terms of both in extension and flexion. We liked this. We removed all the trials, irrigated out the bone, dried the bone, and cemented inthe implants in the same size. Allowed the cement to completely harden and then placed the final 12mm posterior-stabilized polyethylene insert. I then removed the excess cement, irrigated out the knee, closed the arthrotomy with interrupted #1 Vicryl oversewed with Stratafix symmetric suture, closed the subcu with 2-0 and 3-0 Monocryl and then placed Prineo dressing. The patient tolerated this well and was taken to the postop recovery room. Estimated Blood Loss 200. Urine Output 420 Crystalloid 3000 mL. Colloid None. Blood None. Anesthesia Type Spinal. Please note I was the attending of record. I was present for the critical portions of the procedurewhich included the exposure, the removal of the old implants, the preparation of the bone, the trialing of the bone, the final implantation of the components, the initiation of the deep wound closure. Dr. Leon Coppola, a fellow in joint reconstructive and joint preservation surgery, was present for this procedure. His assistance was medically necessary as there was no qualified orthopedic resident available. His activities included helping me with the surgical exposure, placement and maintenance of retractors as well as manipulation of the leg so I could perform the critical portions of t he procedure, and help with wound closure at the end. Please note he was the supervising surgeon for the noncritical portions of the procedure. Job ID/VF Job ID: [id number] documented in this encounter Plan of Treatment Not on file documented as of this encounter Procedures Procedure Name Priority Date/Time Associated Diagnosis Comments DIFFERENTIAL AUTO STAT 02/18/2018 9:3 8 PM CDT CBC WITH AUTO DIFFERENTIAL STAT 02/18/2018 9:38 PM CDT COMPREHENSIVE METABOLIC PANEL STAT 02/18/2018 9:38 PM CDT XR KNEE RIGHT 1 OR 2 VIEWS STAT 02/18/2018 3:33 PM CDT REVISION ARTHROPLASTY TOTAL KNEE 02/18/2018 10:53 AM CDT Failure of total knee replacement, initial encounter ([facility]) documented in this encounter Results * (ABNORMAL) Differential, auto (02/18/2018 9:38 PM CDT) Neutrophil abs 13.2(H) 1.7 - 6.5 K/cumm [facility] Imm gran abs 0.2(H) 0.0 - 0.1 K/cumm [facility] Lymphocyte abs 0.6(L) 0.8 - 3.3 K/cumm [facility] Monocyte abs 0.8 0.2 - 0.8 K/cumm [facility] Eosinophil abs 0.0 0.0 - 0.5 K/cumm [facility] Basophil abs 0.0 0.0 - 0.1 K/cumm [facility] Neutrophil pct 89.3 % [facility] Comment: Interpretive Data Percent cell count reference ranges are not reported, since discordance with absolute values may lead to misinterpretation of CBC data. Current Interpretive Data was last revised on 2017. Imm gran pct 1.0 % [facility] Comment: Interpretive Data Percent cell count reference ranges are not reported, since discordance with absolute values may lead to misinterpretation of CBC data. Current Interpretive Data was last revised on 2017. Lymphocyte pct 4.2 % [facility] Comment: Interpretive Data Percent cell count reference ranges are not reported, since discordance with absolute values may lead to misinterpretation of CBC data. Current Interpretive Data was last revised on 2017. Monocyte pct 5.1 % [facility] Comment: Interpretive Data Percent cell count reference ranges are not reported, since discordance with absolute values may lead to misinterpretation of CBC data. Current Interpretive Data was last revised on 2017. Eosinophil pct 0.1 % [facility] Comment: Interpretive Data Percent cell count reference ranges are not reported, since discordance with absolute values may lead to misinterpretation of CBC data. Current Interpretive Data was last revised on 2017. Basophil pct 0.3 % [facility] Comment: Interpretive Data Percent cell count reference ranges are not reported, since discordance with absolute values may lead to misinterpretation of CBC data. Current Interpretive Data was last revised on 2017. Blood specimen (specimen) 02/18/2018 9:38 PM CDT 02/18/2018 10:44 PM CDT Narrative [facility] - 02/18/2018 10:55 PM CDT Dinesh Saleem MD LAB BLOOD ORDERAB LES Final Result [facility] Department [place] [address] * Comprehensive metabolic panel (02/18/2018 9:38 PM CDT) Sodium 139 135 - 145 mmol/L [facility] Potassium, pl 3.9 3.3 - 4.9 mmol/L [facility] Chloride 107 97 - 110 mmol/L [facility] CO2 24 22 - 32 mmol/L [facility] Anion gap 8 2 - 15 mmol/L [facility] BUN 14 8 - 25 mg/dL [facility] Creatinine 0.64 0.60 - 1.10 mg/dL [facility] Glucose 106 70 - 199 mg/dL [facility] Comment: Interpretive Data Fasting glucose >/= 126 [...] interpretive data was last revised 2017. Calcium 8.7 8.5 - 10.3 mg/dL [facility] Bilirubin, total 0.5 0.1 - 1.2 mg/dL [facility] Protein, pl 6.6 6.5 - 8.5 g/dL [facility] Albumin 3.7 3.5 - 5.0 g/dL [facility] Alk phos 77 40 - 130 Units/L [facility] ALT 31 7 - 45 Units/L [facility] AST 24 10 - 45 Units/L [facility] Blood specimen (specimen) 02/18/2018 9:38 PM CDT 02/18/2018 10:44 PM CDT Narrative [facility] - 02/18/2018 11:08 PM CDT Dinesh Saleem MD LAB BLOOD ORDERAB LES Final Result [facility] Department [place] [address] * (ABNORMAL) CBC with auto differential (02/18/2018 9:38 PM CDT) WBC 14.8(H) 3.8 - 9.9 K/cumm [facility] Hgb 12.2 11.9 - 15.5 g/dL [facility] Hct 36.7 35.6 - 45.5 % [facility] Plt 244 150 - 400 K/cumm [facility] MPV 12.4(H) 9.1 - 12.3 fL [facility] RBC 4.03 3.90 - 5.20 M/cumm [facility] MCV 91.1 81.3 - 96.4 fL [facility] MCH 30.3 27.1 - 33.3 pg [facility] MCHC 33.2 32.3 - 35.7 g/dL [facility] RDW CV 14.0 11.1 - 14.9 % [facility] RDW SD 46.7 35.7 - 48.1 fL [facility] NRBC abs 0.00 0.00 - 0.01 K/cumm [facility] Blood specimen (specimen) 02/18/2018 9:38 PM CDT 02/18/2018 10:44 PM CDT Narrative [facility] - 02/18/2018 10:55 PM CDT Dinesh Saleem MD LAB BLOOD ORDERAB LES Final Result Performing Organization Address City/State/[facility] Co de Phone Number [facility] Department [place] [address] * XR Knee Right 1 or 2 View (02/18/2018 3:33 PM CDT) Anatomical Region Laterality Modality Lower Extremities, Knee Right Computed Radiography 02/18/2018 3:35 PM CDT Impressions 02/18/2018 3:35 PM CDT New revision right total knee arthroplasty. Electronically signed by: Larry Cruz M.D. Narrative 02/18/2018 3:35 PM CDT EXAMINATION: Right knee one or 2 views. HISTORY: ??Healed right knee arthroplasty FINDINGS: 2 views of the right knee are submitted for interpretation. Comparison is made to the prior examination on 12/30/2017. There is a revision right total knee arthroplasty with new longstem femoral and tibial components. Soft tissue gas is present. There is no acute fracture. Procedure Note Larry Cruz MD - 02/18/2018 EXAMINATION: Right knee one or 2 views. HISTORY: Healed right knee arthroplasty FINDINGS: 2 views of the right knee are submitted for interpretation. Comparison is made to the prior examination on 12/30/2017. There is a revision right total knee arthroplasty with new longstem femoral and tibial components. Soft tissue gas is present. There is no acute fracture. IMPRESSION: New revision right total knee arthroplasty. Electronically signed by: Larry Cruz M.D. Leon Coppola MD IMG XR PROCEDURES Final Res ult documented in this encounter Visit Diagnoses Diagnosis Failed total knee arthroplasty ([facility]) ([facility])- Primary Failure of total knee replacement, initial encounter ([facility]) Failure of total knee replacement, initial encounter ([facility]) documented in this encounter Admitting Diagnoses Diagnosis Failed total knee arthroplasty ([facility]) ([facility]) documented in this encounter Administered Medications Inactive Administered Medications - up to 3 most recent administrations Medication Order MAR Action Action Date Dose Rate Site aspirin enteric coated tablet 325 mg 325 mg, oral, 2 times daily, First dose on Sat02/18/18 at 2100, Do not crush, chew, cut, dissolve, open or otherwise manipulate tablet/capsule., Indications: Deep Vein Thrombosis PreventionIndications:Deep Vein Thrombosis Prevention Given 02/19/2018 8:30 AM CDT 325 mg Given 02/18/2018 8:38 PM CDT 325 mg diazePAM (VALIUM) tablet 5 mg 5 mg, oral, Nightly, First dose on Sat02/18/18 at 2100, Indications: anxietyIndications:anxiety Given 02/18/2018 8:37 PM CDT 5 mg famotidine (PEPCID) tablet 20 mg 20 mg, oral, 2 times daily, First dose on Sat02/18/18 at 2100, Indications: HeartburnIndications:Heartburn Given 02/19/2018 8:30 AM CDT 20 mg Given 02/18/2018 8:38 PM CDT 20 mg Lactated Ringer's (LR) infusion 30 mL/hr, intravenous, Continuous, Starting on Sat02/18/18 at 1130, For 365 days New Bag 02/18/2018 12:54 PM CDT New Bag 02/18/2018 11:31 AM CDT New Bag 02/18/2018 10:35 AM CDT levothyroxine (SYNTHROID, LEVOTHROID) tablet 100 mcg 100 mcg, oral, Every morning, First dose on Sat02/19/18 at 0900, Administer on an empty stomach, preferably 30 minutes before breakfast. Take 4 hours apart from antacids, iron and calcium products., Indications: hypothyroidismIndications:hypothyroidism Given 02/19/2018 8:30 AM CDT 100 mcg morphine injection 2 mg 2 mg, intravenous, Every 4 hours PRN, 2nd line for pain, Starting on Sat02/18/18 at 1728, May administer 1 hour after second dose of 1st line analgesic agent for uncontrolled or increasing pain. Given 02/18/2018 6:00 PM CDT 2 mg ondansetron (ZOFRAN) injection 4 mg 4 mg, intravenous, Every 6 hours PRN, nausea, vomiting, if not tolerating PO, Starting on Sat02/18/18 at 1728, Indications: nausea and vomitingIndications:nausea and vomiting ondansetron ODT (ZOFRAN-ODT) disintegrating tablet 4 mg 4 mg, oral, Every 6 hours PRN, nausea, vomiting, Starting on Sat02/18/18 at 1728, Indications: nausea and vomitingIndications:nausea and vomiting oxyCODONE-acetaminophen (PERCOCET) 5-325 mg per tablet 1 tablet 1 tablet, oral, Every 4 hours PRN, 1st line for pain, Starting on Sat02/18/18 at 1728, May repeat in 1 hour if pain is uncontrolled or increasing. Max 2 doses within 1 dosing interval., Indications: PainIndications:Pain Given 02/19/2018 10:18 AM CDT 1 tablet Given 02/19/2018 6:07 AM CDT 2 tablets Given 02/19/2018 1:43 AM CDT 2 tablets senna-docusate (PERICOLACE) 8.6-50 mg per tablet 2 tablet 2 tablet, oral, 2 times daily, First dose on Sat02/18/18 at 2100, Hold for diarrhea., Indications: constipationIndications:constipation Given 02/19/2018 8:30 AM CDT 2 table ts Given 02/18/2018 8:38 PM CDT 2 tablets sodium chloride 0.9 % irrigation As needed, Starting on Sat02/18/18 at 1239, Intra-Op Given 02/18/2018 12:39 PM CDT 1,000 mL sodium chloride 0.9% flush 0.5-20 mL 0.5-20 mL, intra-catheter, Every 8 hours scheduled, First dose on Sat02/18/18 at 2200, Flush volume based on line type and size. , Indications: FlushingIndications:Flushi ng Given 02/18/2018 8:39 PM CDT 10 mL sodium chloride 0.9% flush 0.5-20 mL 0.5-20 mL, intra-catheter, As needed, line care, Starting on Sat02/18/18 at 1728, Flush volume based on line type and size. Flush before and after each use. , Indications: FlushingIndications:Flushi ng Given 02/19/2018 3:12 AM CDT 10 mL sodium chloride 0.9% infusion 100 mL/hr, intravenous, Continuous, Starting on Sat02/18/18 at 1515, Phase I & Post-op Floor Rate/Dose Verify 02/18/2018 5:51 PM CDT 100 mL/hr 100 mL/hr New Bag 02/18/2018 3:16 PM CDT 100 mL/hr 100 mL/hr topiramate (TOPAMAX) tablet 25 mg 25 mg, oral, 2 times daily, First dose on Sat02/18/18 at 2100, Indications: Migraine PreventionIndications:Migraine Prevention Given 02/19/2018 8:30 AM CDT 25 mg Given 02/18/2018 8:38 PM CDT 25 mg documented in this encounter Discontinued Medications Medication Sig Discontinue Reason Start Date End Da te oxyCODONE-acetaminophe n (PERCOCET) 5-325 mg per tabletIndications:Pain ,to be Filled 02/24/2018 Take 1-2 tablets by mouth every 4 (four) hours as needed for pain. Stop Taking at Discharge 02/24/2018 02/19/2018 traMADol (ULTRAM) 50 mg tablet TAKE 2 TABLETS BY MOUTH EVERY 8 HOURS NEEDED Stop Taking at Discharge 11/15/2017 02/19/2018 mupirocin (BACTROBAN) 2 % ointment APPLY TO NOSTRILS TWICE A DAY FOR 5 DAYS PRIOR TO SURGERY. Stop Taking at Discharge 01/13/2018 02/19/2018 naproxen sodium 220 mg capsuleIndications:Rickey n Take 3 capsules by mouth as needed. Stop Taking at Discharge 02/19/2018 documented as of this encounter Active and Recently Administered Medications Times are shown in CDT. Scheduled Medication Order 02/17/2018 02/18/2018 02/19/2018 acetaminophen (TYLENOL) tablet 650 mg (COMPLETED) 650 mg, oral, Once, On Sat02/18/18 at 0900, For 1 dose, Pre-Op, Indications: Pain 0839 (Given - Provider: Yenni Royal RN) aspirin enteric coated tablet 325 mg 325 mg, oral, 2 times daily, First dose on Sat02/18/18 at 2100, Do not crush, chew, cut, dissolve, open or otherwise manipulate tablet/capsule., Indications: Deep Vein Thrombosis Prevention 2037 (Given - Provider: Cortney Boggs RN) 08 (Given - Provider: Tasia Farias, TAL) ceFAZolin (ANCEF) 2000 mg in 20 mL sterile water (premix) (COMPLETED) 2,000 mg, intravenous, at 400 mL/hr, Administer over 3 Minutes, Every 8 hours, First dose on Sat02/18/18 at 1900, For 2 doses, Beginning 8 hours after last veronika-operative dose., Indications: Prophylaxis, Surgical 2036 (New Bag - Provider: Cortney Boggs RN) 311 (New Bag - Provider: Cortney Boggs RN) diazePAM (VALIUM) tablet 5 mg 5 mg, oral, Nightly, First dose on Sat02/18/18 at 2100, Indications: anxiety 2036 (Given - Provider: Cortney Boggs RN) famotidine (PEPCID) tablet 20 mg 20 mg, oral, 2 times daily, First dose on Sat02/18/18 at 2100, Indications: Heartburn 2037 (Given - Provider: Cortney Boggs RN) 08 (Given - Provider: Tasia Farias, TAL) ketorolac (TORADOL) injection 30 mg (COMPLETED) 30 mg, intravenous, Every 6 hours, First dose on Sat02/18/18 at 1800, For 2 doses, Indications: Pain 2037 (Given - Provider: Cortney Boggs RN) 0147 (Given - Provider: Cortney Boggs RN) ketorolac (TORADOL) injection 30 mg (COMPLETED) 30 mg, intravenous, Once, On 9/25/18 at 0900, For 1 dose, Pre-Op, INTRA-OP Give at time of skin closure, Indications: Postoperative Pain Management 1256 (Given - Provider: Naveen Bunch MD) Lactated Ringer's (LR) bolus 1,000 mL (COMPLETED) 1,000 mL, intravenous, Once, On Sat02/18/18 at 0900, For 1 dose, Pre-Op 0838 (New Bag - Provider: Yenni Royal RN) levothyroxine (SYNTHROID, LEVOTHROID) tablet 100 mcg 100 mcg, oral, Every morning, First dose on Sat02/19/18 at 0900, Administer on an empty stomach, preferably 30 minutes before breakfast. Take 4 hours apart from antacids, iron and calcium products., Indications: hypothyroidism 0830 (Given - Provid er: Tasia Farias RN) scopolamine patch 72 hour 1 patch 1 patch, transdermal, Administer over 72 Hours, Once, On Sat02/18/18 at 0900, For 1 dose, Pre-Op, Indications: Prevention of Post-Operative Nausea and Vomiting 0839 (Medication Applied - Provider: Yenni Royal RN) 1444 (Due: Medication Removed - Provider: Automatic Discharge Provider - Comment: Time automatically adjusted from order being discontinued) senna-docusate (PERICOLACE) 8.6-50 mg per tablet 2 tablet 2 tablet, oral, 2 times daily, First dose on Sat02/18/18 at 2100, Hold for diarrhea., Indications: constipation 2037 (Given - Provider: Cortney Boggs RN) 0830 (Given - Provider: Tasia Farias RN) sodium chloride 0.9% flush 0.5-20 mL 0.5-20 mL, intra-catheter, Every 8 hours scheduled, First dose on Sat02/18/18 at 2200, Flush volume based on line type and size. , Indications: Flushing 2038 (Given - Provider: Cortney Boggs RN) 0457 (Not Given - Provider: Cortney Boggs RN - Reason: Other)1400 (Due) topiramate (TOPAMAX) tablet 25 mg 25 mg, oral, 2 times daily, First dose on Sat02/18/18 at 2100, Indications: Migraine Prevention 2037 (Given - Provider: Cortney Boggs, TAL) 0830 (Given - Provider: Tasia Farias, TAL) tranexamic acid (TXA) 1,000 mg in sodium chloride 0.9% 100 mL (COMPLETED)(Linked Group 1) 1,000 mg, intravenous, Once, On Sat02/18/18 at 0900, For 1 dose, Pre-Op, INTRA-OP Infuse over 10 minutes prior to skin incision, Indications: Reduction of Perioperative Blood Loss 1108 (New Bag - Provider: Naveen Bunch MD)1304 (Bolus - Provider: Naveen Bunch MD) Continuous Medication Order 02/17/2018 02/18/2018 02/19/2018 Lactated Ringer's (LR) infusion 30 mL/hr, intravenous, Continuous, Starting on Sat02/18/18 at 1130, For 365 days 0822 (Due)1010 (Rate/Dose Verify - Provider: Naveen Bunch MD)1035 (New Bag - Provider: Naveen Bunch MD)1036 (Anesthesia Volume Adjustment - Provider: Naveen Bunch MD)1131 (New Bag - Provider: Naveen Bunch MD)1254 (New Bag - Provider: Naveen Bunch MD)1310 (Anesthesia Volume Adjustment - Provider: Naveen Bunch MD) sodium chloride 0.9% infusion 100 mL/hr, intravenous, Continuous, Starting on Sat02/18/18 at 1515, Phase I & Post-op Floor 1516 (New Bag - Provider: Beulah Davidson, TAL)1751 (Rate/Dose Verify - Provider: Umberto Mendez RN) PRN Medication Order 02/17/2018 02/18/2018 02/19/2018 camphor-menthol (SARNA) 0.5-0.5 % lotion topical, Every 2 hours PRN, other, itching, Starting on Sat02/18/18 at 1728, Apply to affected area: other, Indications: Urticaria fentaNYL (SUBLIMAZE) preservative free injection 50 mcg (COMPLETED) 50 mcg, intravenous, Once as needed, uncontrolled pain on PACU admission, Starting on Sat02/18/18 at 1337, For 1 dose, Phase I, Then proceed to PACU 1st line analgesic., Indications: Pain 1341 (Due)1504 (Given - Provider: Beulah Davidson RN) HYDROmorphone (DILAUDID) injection 0.2 mg (CANCELED) 0.2 mg, intravenous, Every 10 min PRN, 1st line for pain, Starting on 02/18/18 at 1337, Phase I, Notify Anesthesiologist if total PACU dose reaches 2 mg and pain score 5/10 or more., Indications: Pain 1516 (Given - Provider: Beulah Davidson RN)1528 (Given - Provider: Beulah Davidson RN)1538 (Given - Provider: Beulah Davidson RN)1548 (Given - Provider: Beulah Davidson RN) morphine injection 2 mg 2 mg, intravenous, Every 4 hours PRN, 2nd line for pain, Starting on e 02/18/18 at 1728, May administer 1 hour after second dose of 1st line analgesic agent for uncontrolled or increasing pain. 1800 (Given - Provider: Abby Covington RN) ondansetron (ZOFRAN) injection 4 mg(Linked Group 2) 4 mg, intravenous, Every 6 hours PRN, nausea, vomiting, if not tolerating PO, Starting on 02/18/18 at 1728, Indications: nausea and vomiting ondansetron (ZOFRAN) injection 4 mg (COMPLETED) 4 mg, intravenous, Once as needed, nausea, vomiting, Starting on 02/18/18 at 1337, For 1 dose, Phase I, Indications: Nausea and Vomiting 1339 (Given - Provider: Beulah Davidson RN) ondansetron ODT (ZOFRAN-ODT) disintegrating tablet 4 mg(Linked Group 2) 4 mg, oral, Every 6 hours PRN, nausea, vomiting, Starting on e 02/18/18 at 1728, Indications: nausea and vomiting oxyCODONE (ROXICODONE) tablet 5 mg (COMPLETED) 5 mg, oral, Once as needed, 1st line for pain, Starting on 02/18/18 at 1337, For 1 dose, Phase I, When able to tolerate PO., Indications: Pain 1612 (Given - Provider: Beulah Davidson RN) oxyCODONE-acetaminophen (PERCOCET) 5-325 mg per tablet 1 tablet 1 tablet, oral, Every 4 hours PRN, 1st line for pain, Starting on Sat02/18/18 at 1728, May repeat in 1 hour if pain is uncontrolled or increasing. Max 2 doses within 1 dosing interval., Indications: Pain 2037 (Given - Provider: Cortney Boggs RN)2101 (Given - Provider: Cortney Boggs RN - Comment: pt can have 2 in one interval) 0143 (Given - Provider: Cortney Boggs RN - Comment: patient can have 2 in one interval)0607 (Given - Provider: Cortney Boggs RN - Comment: patient can have 2 in one interval)1018 (Given - Provider: Tasia Farias RN) polyethylene glycol (MIRALAX) packet 17 g 17 g, oral, Daily PRN, constipation, Starting on Sat02/18/18 at 1728, Indications: constipation sodium chloride 0.9 % irrigation (CANCELED) As needed, Starting on Sat02/18/18 at 1239, Intra-Op 1239 (Given - Provider: David Ba MD) sodium chloride 0.9% flush 0.5-20 mL 0.5-20 mL, intra-catheter, As needed, line care, Starting on Sat02/18/18 at 1728, Flush volume based on line type and size. Flush before and after each use. , Indications: Flushing 0312 (Given - Provider: Cortney Boggs RN) No Frequency Medication Order 02/17/2018 02/18/2018 02/19/2018 morphine 2 mg/mL injection - ADS Override Pull (COMPLETED) Starting on Sat02/18/18 at 1738, For 1 dose, UMBERTO MENDEZ: cabinet override 1741 (Given - Provider: Abby Covington RN) Linked Groups Order Group 1: tranexamic acid (TXA) 1,000 mg in sodium chloride 0.9% 100 mL (COMPLETED)Jump to med 1,000 mg, intravenous, Once, On Sat02/18/18 at 0900, For 1 dose, Pre-Op, INTRA- OP Infuse over 10 minutes prior to skin incision, Indications: Reduction of Perioperative Blood Loss And tranexamic acid (TXA) 1,000 mg in sodium chloride 0.9% 100 mL (CANCELED) 1,000 mg, intravenous, Once, On Sat02/18/18 at 0900, For 1 dose, Pre-Op, INTRA- OP Infuse over 10 minutes at the start of wound closure., Indications: Reduction of Perioperative Blood Loss Group 2: ondansetron ODT (ZOFRAN-ODT) disintegrating tablet 4 mgJump to med 4 mg, oral, Every 6 hours PRN, nausea, vomiting, Starting on Sat02/18/18 at 1728, Indications: nausea and vomiting Or ondansetron (ZOFRAN) injection 4 mgJump to med 4 mg, intravenous, Every 6 hours PRN, nausea, vomiting, if not tolerating PO, Starting on Sat02/18/18 at 1728, Indications: nausea and vomiting documented in this encounter Orders Medications Ordered That Barak ht Not Have Been Administered Count Last Ordered Date First Ordered Date acetaminophen (TYLENOL) tablet 650 mg aspirin enteric coated tablet 325 mg 01/26 camphor-menthol (SARNA) 0.5-0.5 % lotion 02/18/2018 ceFAZolin (ANCEF) 2000 mg in 20 mL sterile water (premix) 2 02/18/2018 diazePAM (VALIUM) tablet 5 mg 02/18/2018 famotidine (PEPCID) tablet 20 mg 02/19/20 18 fentaNYL (SUBLIMAZE) preserv ative free injection 50 mcg 02/18/2018 HYDROmorphone (DILAUDID) injection 0.2 mg 02/18/2018 ketorolac (TORADOL) injection 30 mg 2 02/18 Lactated Ringer's (LR) bolus 1,000 mL Lactated Ringer's (LR) infusion 8 levothyroxine (SYNTHROID, LE VOTHROID) tablet 100 mcg 02/18/2018 morphine 2 mg/mL injection - ADS Override Pull 02/18/2018 morphine injection 2 mg 02/18/2018 naloxone (NARCAN) 0.4 mg/mL injection 0.04-0.4 mg 1 02/18/2018 ondansetron (ZOFRAN) injection 4 mg 2 02/18 ondansetron ODT (ZOFRAN-ODT) disintegrating tablet 4 mg 1 02/18/2018 oxyCODONE (ROXICODONE) tablet 5 mg 1 2017 oxyCODONE-acetaminophen (PER COCET) 5-325 mg per tablet 1 tablet 1 02/18/2018 polyethylene glycol (MIRALAX) packet 17 g 1 02/18/2018 scopolamine patch 72 hour 1 patch 1 018 senna-docusate (PERICOLACE) 8.6-50 mg per tablet 2 tablet 1 02/18/2018 sodium chloride 0.9% flush 0.5-20 mL 3 01/26 sodium chloride 0.9% infusion 1 02/18/2018 topiramate (TOPAMAX) tablet 25 mg 1 018 tranexamic acid (TXA) 1,000 mg in sodium chloride 0.9% 100 mL 2 02/18/2018 General Supply Count Last Ordered Date First Or dered Date WALKER 1 02/19/2018 Diet Count Last Ordered Date First Orde red Date ADULT DISCHARGE DIET 1 02/19/2018 Nursing Count Last Ordered Date First Orde red Date DISCHARGE ACTIVITY 1 02/19/2018 DISCHARGE CALL PROVIDER 11 02/19/2018 DISCHARGE DRESSING 1 02/19/2018 DISCHARGE INSTRUCTIONS 1 02/19/2018 WEIGHT BEARING TOLERATED 1 02/19/2018 Admission Count Last Ordered Date First Orde red Date ASSIGN PATIENT STATUS 1 01/24/2018 documented in this encounter Care Teams Refrigeration Tech Relationship Specialty Start Date End Date René Smallwood MD PCP - General Family Medicine 12/02/17 02/10/20 documented as of this encounter
--- OUTSIDE RECORDS SUMMARY | 2024-05-11 17:36 | XMS_ITS | Encounter Summary ---
Author Organization [facility] Address [address] [place] [address] Phone Care Team Providers Care Capacity Planner Name Role Phone René Smallwood MD Primary Care Provider [phone] Reason for Visit * Reason Comments Follow-up Follow-up * Orthopedic (Routine) - Closed Specialty Diagnoses / Procedures Referred By Liz falcon Referred To Contact Orthopedic Surgery Diagnoses bilat knee Procedures RETURN David Ba MD Phone: tel: fax: David Ba MD [address] [place] [address] Phone: tel: fax: Referral ID Status Reason Start Date Expiration Date Visits Re quested Visits Authorized [id number] Closed 12/02/2017 12/02/2018 12 12 Encounter Details Date Type Department Care Team (Late st Contact Info) Description 01/13/2018 8:40 AM CDT Office Visit [facility] Orthopaedic Surgery [address] [place] [address] [place] [address] David Ba MD [address] [place], [place] [id number] Aftercare following bilateral knee joint replacement surgery (Primary Dx) Social History Tobacco Use Types Packs/Day Years Used Date Smoking Tobacco: Former Smokeless Tobacco: Former Alcohol Use Standard Drinks/Week Comments Yes 0 (1 standard drink = 0.6 oz pur e alcohol) Comments Unknown Sex and Gender Information Value Date Recorded Sex Assigned at Not on file 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 The results of the cultures were no growth final. There are also no crystals on analysis. Today she brings back her films which were performed preoperatively, she also has an MRI preoperatively of the right knee. With regard to her knees are pain continues. She is not walking much, she does use a walker or wheelchair. She then knees switch every day to which 1 is worse, today it is the left. Shehas continued to take tramadol as well as Toradol occasionally for pain flares. She notes that it does in addition to feeling painful also feel unstable. She notes that her pain is likely worse than before the surgery. PHYSICAL EXAMINATION: NAD NLB Hearing intact to spoken word RRR by palpation of peripheral pulse A focused exam of bilateral lower extremities shows he distally neurovascular intact. The she does not have a remarkable effusion bilateral knees. Incisions in both knees are clean dry and intact. There is a slight amount of varus valgus laxity on stressing for the right knee more than the left with the knee in at full extension. Her knee is globally loose. The She has good range of motion from 0-110 degrees bilaterally. Her quad strength is intact although decreased bilaterally. There is no notable anterior-posterior instability. . REVIEW OF X-RAY/STUDIES: Review of the preoperative imaging the obtained from the outside facility show that he her joint spaces are well preserved, the however this several years before the replacements. 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 Will have her see anesthesia for clearance before surgery Dictated by Christofer Locke * Radha Koo RN - 01/13/2018 8:40 AM CDT Patient Information Patient Name: Marnie Roque Gender: female Date of : 1965 Age: 52 y.o. 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 Blood transfusion consent obtained. Preadmission Testing/Anesthesia H&P: Date: 02-07-18 Time: 1230 Pre-Op Joint Class Scheduled for: Date: Time: PreHab Rx given to Patient: n/a Faxed to: Doppler: n/a Date: Time: Pre-Op Meds/Anticoag: Instructed to stop primary prevention ASA/hormones/supplements 7 Days prior to surgery Instructed to stop NSAIDS 5 days prior to surgery Anticoagulation protocol discussed: yes ASA/Active Care Pumps 10 days Decolonization Instructions: yes Skin preparations guide Mupirocin Rx Prescription for Celebrex N/A The patient was given a TKA teaching packet including surgery guidelines with instructions, DECOL protocol instructions, instructions to stop all NSAID's, Blood thinners and aspirin products one weekbefore surgery, as well as office contacts to call if they have any additional questions prior to their surgery date. Current Outpatient Prescriptions: ??? diazePAM (VALIUM) 5 mg tablet, Take 5 mg by mouth nightly. at bedtime., Disp: , Rfl: 5 ??? ketorolac (TORADOL) 10 mg tablet, TAKE ONE TABLET BY MOUTH EVERY SIX HOURS NEEDED FOR UP TO FIVE DAYS, Disp: , Rfl: 0 ??? levothyroxine (SYNTHROID, LEVOTHROID) 100 mcg tablet, , Disp: , Rfl: ??? topiramate (TOPAMAX) 25 mg tablet, , Disp: , Rfl: ??? traMADol (ULTRAM) 50 mg tablet, TAKE 2 TABLETS BY MOUTH EVERY 8 HOURS NEEDED, Disp: , Rfl: 1 ??? mupirocin (BACTROBAN) 2 % ointment, APPLY TO NOSTRILS TWICE A DAY FOR 5 DAYS PRIOR TO SURGERY.,Disp: 22 g, Rfl: 0 She has No Known Allergies. Risk Assessment DANIEL RISK: No STOP BANG Score: 2 CMP(CO2): Sleep Study: CPAP/BIPAP: N/A N/A Bone Health screen - Vitamin D Level Ordered: Yes N/A Oral Health: Healthy teeth Smoking History: No Family History of DVT/PE: No She reports that she has quit smoking. She has quit using smokeless tobacco. 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: Live in available day/night In a: Home [facility] Home Environment: Entry Steps: Yes: Number of Steps: 2 Bedroom Location: 2nd Floor Bathroom Location:2nd Floor What Medical Devices/Equipment used: Walker and Crutches Are you able to self-manage activities of daily living: ADL's: Bathing, Dressing, Self-feeding, Personal Hygiene and Toilet Hygiene IADL's: Housework, Medications, Managing Money, Shopping and Telephone Transportation: Self Pre-Op Ambulation: Impaired Home distances Projected Post-Op Weight bearing: Full or WBAT Home Location: < 150 miles RAPT: What is your age group?: Gender: How far on average can you walk? (a block is 200 meters): Which gait aid do you use most? (more often than not): Do you use community supports? (home-help, meals on wheels, district nursing): Will you live with someone who can care for you after your operation?: RAPT Total Score: (If <9 send to [facility]'s floor care team for review) (If <6 [...] Patient's preference: Home Agreed destination: Home with < 5 Home Health visits Social Work Referral: no Potential Rehab/SNF Candidate: Lives alone/no support RRAT Infection Risk Factors: Is patient positive [...] Obesity: What is the patient's BMI? BMI 36 - 39 Cardiovascular Disease: Patient has a history of [...] Is DM well controlled? RRAT Total Score: 2 Recommendations for Preoperative Care/Optimization: < 2 Proceed with Scheduling Surgery. Radha Koo RN documented in this encounter Plan of Treatment Not on file documented as of this encounter Visit Diagnoses Diagnosis Aftercare following bilateral knee joint replacement surgery- Primary documented in this encounter Care Teams Capacity Planner Relationship Specialty Start Date End Date René Smallwood MD PCP - General Family Medicine 12/02/17 02/10/20 documented as of this encounter
--- OUTSIDE RECORDS SUMMARY | 2024-05-11 17:36 | XMS_ITS | Encounter Summary ---
Author Organization [facility] Address [address] [place] [address] Phone Care Team Providers Care Bottle Washer Name Role Phone René Smallwood MD Primary Care Provider +1 [phone] Reason for Referral * Injectables (Routine) - Closed Specialty Diagnoses / Procedures Referred By Contac t Referred To Contact Diagnoses Chronic pain of both knees Procedures Arthrocentesis Azalea Ba MD Phone: tel: fax: [facility] (All Locations) Referral ID Status Reason Start Date Expiration Date Visits Re quested Visits Authorized [id number] Closed 12/31/2017 07/12/2019 1 1 * Injectables (Routine) - Closed Specialty Diagnoses / Procedures Referred By Contac t Referred To Contact Diagnoses Chronic pain of both knees Procedures Arthrocentesis Azalea Ba MD Phone: tel: fax: [facility] (All Locations) Referral ID Status Reason Start Date Expiration Date Visits Re quested Visits Authorized [id number] Closed 12/30/2017 07/11/2019 1 1 * Diagnostic Imaging (Routine) - Closed Specialty Diagnoses / Procedures Referred By Contac t Referred To Contact Diagnoses Chronic pain of both knees Procedures XR Knee Right 3 Views Azalea Ba MD Phone: tel: fax: [address] [address] Referral ID Status Reason Start Date Expiration Date Visits Re quested Visits Authorized [id number] Closed 12/20/2017 07/01/2019 1 1 * Diagnostic Imaging (Routine) - Closed Specialty Diagnoses / Procedures Referred By Contac t Referred To Contact Diagnoses Chronic pain of both knees Procedures XR Knee Left 3 Views Azalea Ba MD Phone: tel: fax: [address] [address] Referral ID Status Reason Start Date Expiration Date Visits Re quested Visits Authorized [id number] Closed 12/20/2017 07/01/2019 1 1 Reason for Visit * Reason Comments Pain Pain * Orthopedic (Routine) - Canceled Specialty Diagnoses / Procedures Referred By Contac t Referred To Contact Orthopedic Surgery Diagnoses XRAYS NEEDED..KAIN KN OO HAS LOOSE BODY PREV REPL HAS FILMS Procedures HIP René Muñiz MD Phone: tel: fax: Azalea Ba MD [address] [place] [address] Phone: tel: fax: Referral ID Status Reason Start Date Expiration Date V isits Requested Visits Authorized [id number] Canceled 12/02/2017 12/02/2018 12 12 Encounter Details Date Type Department Care Team (Late st Contact Info) Description 12/30/2017 11:20 AM CDT Office Visit [facility] Orthopaedic Surgery [address] [address] [place] [address] [place] [address] Azalea Ba MD [address] [place], [place] [id number] Chronic pain of both knees (Primary Dx) Social History Tobacco Use Types Packs/Day Years Used Date Smoking Tobacco: Former Smokeless Tobacco: Former Alcohol Use Standard Drinks/Week Comments Yes 0 (1 standard drink = 0.6 oz pur e alcohol) Comments Unknown Sex and Gender Information Value Date Recorded Sex Assigned at Not on file 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 Gender Identity Not on file Sexual Orientation [...] - Inhaled Oxygen Concentration - - Weight 87.1 kg (192 lb) 12/30/2017 12:08 PM CDT Height 154.9 cm (5' 1 ) 12/30/2017 12:08 PM CDT Body Mass Index 36.28 12/30/2017 12:08 PM CDT documented in this encounter Progress Notes * Azalea Ba MD - 12/30/2017 11:20 AM CDTAssociated Order(s): JOINT ASPIRATION/INJECTION; JOINT ASPIRATION/INJECTION Post-Procedure Diagnose(s): Chronic pain of both knees JOINT ASPIRATION Date/Time: 12/30/2017 6:10 PM Performed by: AZALEA BA Authorized by: AZALEA BA time out verifies correct patient, procedure, equipment, accounting support specialist and site/side marked as required: Indications: Indications: Pain Location: Body area: Knee Joint: Right knee Local anesthesia used?: No Procedure details: Needle size: 18 G Approach: Superior Aspirate: Serous Patient tolerance: Patient tolerated the procedure well with no immediate complications JOINT ASPIRATION Date/Time: 12/31/2017 9:23 AM Performed by: AZALEA BA Authorized by: AZALEA BA time out verifies correct patient, procedure, equipment, accounting support specialist and site/side marked as required: Indications: Indications: Pain Location: Body area: Knee Joint: Left knee Local anesthesia used?: No Procedure details: Preparation: Patient was prepped and draped in usual sterile fashion Needle size: 18 G Approach: Superior Aspirate: Serous Patient tolerance: Patient tolerated the procedure well with no immediate complications * Leon Coppola MD - 12/30/2017 12:00 AM CDT NEW PATIENT VISIT CHIEF COMPLAINT: Bilateral knee pain. HISTORY OF PRESENT ILLNESS: Ms. Roque is a 52-year-old female who presents complaining of bilateral knee pain ever since she had bilateral total knee replacements. She reports that the knee pain is equal bilaterally. Today,the left is bothering her more than the right. She reports that the knee pain is anterior as well as posterior. She denies any trauma. She reports that she had no issues with her surgical wound that may have been concerning for drainage or infection. She denies any issues with range of motion postoperatively and no issues with infection or range of motion postoperatively with either knee. Of note, these surgeries were done at an outside hospital. She reports that each knee, she underwent a kneearthroscopy followed by patellofemoral replacement and then followed by revision to total knee arthroplasty. The left total knee arthroplasty was done in May of 2014 and the right knee total kneearthroplasty was done in August of 2015. She reports she uses the aid of a walker to ambulate secondary to pain and she has pain with going up and down stairs. Of note, she goes down stairs by facing the stairs, so backwards. PAST MEDICAL HISTORY: 1. Anxiety. 2. Depression. 3. Migraine. 4. Obesity. INITIAL REVIEW OF MEDICATIONS: 1. Levothyroxine. 2. Tramadol. 3. Toradol. 4. Diazepam. 5. Topiramate. DRUG ALLERGIES: No known drug allergies. PAST SURGICAL HISTORY: 1. Wrist surgery in 1972. 2. Tubal ligation in 1991. 3. Left knee arthroscopy, patellofemoral replacement and revision to total knee replacement done byDr. Mikey Blake. 4. Right knee arthroscopy, patellofemoral replacement and revision to total knee replacement done by Dr. Mikey Blake. SOCIAL HISTORY: She is currently unemployed. She is single. She has 3 kids. She lives with her finance. She denies smoking. She quit in November of 2015. She smoked for 24 years previous to that. She drinks socially. She denies any other toxic habits. REVIEW OF SYSTEMS: Positive for weight loss, weight gain and anxiety. FAMILY HISTORY: Mental illness in her maternal grandfather and arthritis in her maternal grandfather. History of Alzheimer???s in her father. PHYSICAL EXAMINATION: General: The patient is well appearing. She is teary-eyed and in pain. She is alert and oriented x3. Extremities: She ambulates with a limp. There is mild effusion bilaterally. Quad strength is 4/5 bilaterally. She is able to straight leg raise bilaterally. Bilateral knee range of motion is -3 to 120 degrees of flexion. In extension she opens up about 3 to 4 mm medially with valgus stress bilaterally. With the knee in flexion, there is an anterior drawer of 5 to 7 mm bilaterally. She has 2+ bilateral DP and PT pulses. She is sensory intact over the superficial peroneal, deep peroneal, sural, saphenous and tibial nerve distributions. REVIEW OF X-RAY/STUDIES: Bilateral knee x-rays show loosening of the tibial baseplate bilaterally with progressive radiolucent lines under the medial tibial baseplate and into the keel. Operative report from May 2014 shows a Sangita Triathlon cruciate-retaining knee, tibia size 3 cemented, cementless femur size 2, 11 mm cruciate-retaining poly. Operative report from August 2015 reports a Sangita Triathlon knee cemented tibia size 2, cementlessfemur size 2 with an 11 mm cruciate-retaining poly. PROCEDURE: Bilateral Knee Aspirations: The risks and benefits of the procedure were discussed with the patient. The risks include, but are not limited to, bleeding, infection. The patient agreed to proceed withthe procedure. Under sterile conditions, the right knee was aspirated for 8 mL of cloudy fluid. Theleft knee was then aspirated for 3 mL of cloudy fluid. The patient tolerated the procedure and there were no immediate complications. IMPRESSION/DIAGNOSIS: Ms. Roque is a 52-year-old female presenting with bilateral painful total knee replacements. At this time, we would like to rule out infection. The bilateral knees were aspirated today. We will send the fluid off for analysis. We would like for her to come back 2 weeks from now to discuss the results of the analysis and to plan further management at that time. TREATMENT PLAN: 1. Bilateral knees were aspirated today and the fluid will be sent for analysis. 2. Return to clinic in 2 weeks to discuss the results of the fluid and formulate a definitive plan. 3. She will also obtain preoperative x-rays prior to her having any replacements in order to assessthe overall knee alignment and pathology at that time. We look forward to seeing her in [address] Ba was present and evaluated the patient and formulated the plan above. Dictated by: Leon Coppola M.D. ATTENDING ADDENDUM The patient's history and physical examination have been dictated by Dr. Leon Coppola. I have independently performed a history and physical examination, and I agree with the findings. ELECTRONICALLY SIGNED - 01/19/2018 06:14 AM Azalea Ba MD Learning Consultant Joint Preservation, Resurfacing and Replacement Service [facility] Orthopedics JR/RN/bl cc: APRYL SMALLWOOD MD documented in this encounter Plan of Treatment Scheduled Orders Name Type Priority Associated Diagnoses Orde r Schedule Synovial fluid, cell count Lab Routine Chronic pain of both knees Expected: 12/30/2017, Expires: 12/30/2018 documented as of this encounter Procedures Procedure Name Priority Date/Time Associated Diagnosis Comments MS ARTHROCENTESIS ASPIR&/INJ MAJOR JT/BURSA W/O US Routine 12/30/2017 11:20 AM CDT Chronic pain of both knees MS ARTHROCENTESIS ASPIR&/INJ MAJOR JT/BURSA W/O US Routine 12/30/2017 11:20 AM CDT Chronic pain of both knees documented in this encounter Results * Aerobic and anaerobic culture and gram stain Aspirate Knee, left (12/30/2017 9:17 PM CDT) Direct Specimen Exam Stain: Rare polymorphonuclear leukocytes seen. Other cellular material present. No organisms seen. [facility] Report Final Report: No growth [facility] Aspirate (Knee, left) 12/30/2017 9:17 PM CDT 12/30/2017 10:25 PM CDT Narrative [facility] - 01/03/2018 11:28 AM CDT Testing performed by [facility] ([phone]) Specimens submitted from normally sterile body sites [...] data was last revised on 2016. us Azalea Ba MD LAB MICROBIOLOGY - GENERA L ORDERABLES Final Result [facility] Department [place] [address] * Aerobic and anaerobic culture and gram stain Aspirate Knee, right (12/30/2017 9:17 PM CDT) Direct Specimen Exam Stain: Few polymorphonuclear leukocytes seen. No organisms seen. [facility] Report Final Report: No growth [facility] Aspirate (Knee, right) 12/30/2017 9:17 PM CDT 12/30/2017 10:35 PM CDT Narrative [facility] - 01/03/2018 11:28 AM CDT Testing performed by [facility] ([phone]) Specimens submitted from normally sterile body sites [...] data was last revised on 2016. us Azalea Ba MD LAB MICROBIOLOGY - GENERA L ORDERABLES Final Result Performing Organization Address City/[facility] Co de Phone Number [facility] Department [place] [address] * Crystal analysis, body fluid (12/30/2017 1:28 PM CDT) Specimen type, fld Synovial [facility] Crystals None Seen None Seen [facility] Fluid 12/30/2017 1:28 PM CDT 12/30/2017 9:20 PM CDT Narrative [facility] - 12/30/2017 9:57 PM CDT us Azalea Ba MD LAB BODY FLUIDS AND STOOL S ORDERABLES Final Result Performing Organization Address [facility] de Phone Number [facility] Department [place] [address] * XR Knee Right 3 Views (12/30/2017 11:32 AM CDT) Anatomical Region Laterality Modality Lower Extremities, Knee Right Computed Radiography 12/30/2017 11:4 3 AM CDT Impressions 12/30/2017 11:43 AM CDT 1. ??Bilateral total knee arthroplasties with mild varus alignment on the right. 2. ??Linear lucency within the medial aspect of the right proximal tibia adjacent to the medial aspect of the tibial tray. ??This may represent a nondisplaced fracture. Electronically signed by: Larry Cruz M.D. Narrative 12/30/2017 11:43 AM CDT EXAMINATION: 1. ??Right knee 3 views. 2. ??Left knee 3 views. HISTORY: ??Painful bilateral knee arthroplasties FINDINGS: 3 views of each knee are submitted for interpretation without comparison. ??There are bilateral total knee arthroplasties with mild right sided varus alignment. ??There is no effusion in either knee. ??There is linear lucency at the medial aspect of the right proximal tibia which may represent a nondisplaced fracture. Procedure Note Larry Cruz MD - 12/30/2017 EXAMINATION: 1. Right knee 3 views. 2. Left knee 3 views. HISTORY: Painful bilateral knee arthroplasties FINDINGS: 3 views of each knee are submitted for interpretation without comparison. There are bilateral total knee arthroplasties with mild right sided varus alignment. There is no effusion in either knee. There is linear lucency at the medial aspect of the right proximal tibia which may represent a nondisplaced fracture. IMPRESSION: 1. Bilateral total knee arthroplasties with mild varus alignment on the right. 2. Linear lucency within the medial aspect of the right proximal tibia adjacent to the medial aspect of the tibial tray. This may represent a nondisplaced fracture. Electronically signed by: Larry Cruz M.D. Azalea Ba MD IMG XR PROCEDURES Final R esult * XR Knee Left 3 Views (12/30/2017 11:32 AM CDT) Anatomical Region Laterality Modality Lower Extremities, Knee Left Computed Radiography 12/30/2017 11:4 3 AM CDT Impressions 12/30/2017 11:43 AM CDT 1. ??Bilateral total knee arthroplasties with mild varus alignment on the right. 2. ??Linear lucency within the medial aspect of the right proximal tibia adjacent to the medial aspect of the tibial tray. ??This may represent a nondisplaced fracture. Electronically signed by: Larry Cruz M.D. Narrative 12/30/2017 11:43 AM CDT EXAMINATION: 1. ??Right knee 3 views. 2. ??Left knee 3 views. HISTORY: ??Painful bilateral knee arthroplasties FINDINGS: 3 views of each knee are submitted for interpretation without comparison. ??There are bilateral total knee arthroplasties with mild right sided varus alignment. ??There is no effusion in either knee. ??There is linear lucency at the medial aspect of the right proximal tibia which may represent a nondisplaced fracture. Procedure Note Larry Cruz MD - 12/30/2017 EXAMINATION: 1. Right knee 3 views. 2. Left knee 3 views. HISTORY: Painful bilateral knee arthroplasties FINDINGS: 3 views of each knee are submitted for interpretation without comparison. There are bilateral total knee arthroplasties with mild right sided varus alignment. There is no effusion in either knee. There is linear lucency at the medial aspect of the right proximal tibia which may represent a nondisplaced fracture. IMPRESSION: 1. Bilateral total knee arthroplasties with mild varus alignment on the right. 2. Linear lucency within the medial aspect of the right proximal tibia adjacent to the medial aspect of the tibial tray. This may represent a nondisplaced fracture. Electronically signed by: Larry Cruz M.D. us Azalea Ba MD IMG XR PROCEDURES Final R esult * MS ARTHROCENTESIS ASPIR&/INJ MAJOR JT/BURSA W/O US (12/30/2017 11:20 AM CDT) Narrative Azalea Ba MD - 12/30/2017 11:20 AM CDT Azalea Ba MD ? 01/06/2018 10:25 AM JOINT ASPIRATION Date/Time: 12/31/2017 9:23 AM Performed by: AZALEA BA Authorized by: AZALEA BA A time out verifies correct patient, procedure, equipment, accounting support specialist and site/side marked as required: Indications: ??Indications: ??Pain Location: ??Body area: ??Knee ??Joint: ??Left knee ??Local anesthesia used?: No ?? Procedure details: ??Preparation: Patient was prepped and draped in usual sterile fashion ?Needle size: ??18 G ??Approach: ??Superior ??Aspirate: ??Serous ??Patient tolerance: ??Patient tolerated the procedure well with no immediate complications us Azalea Ba MD IN CLINIC/BEDSIDE ORDERAB LES Final Result * MS ARTHROCENTESIS ASPIR&/INJ MAJOR JT/BURSA W/O US (12/30/2017 11:20 AM CDT) Narrative Azalea Ba MD - 12/30/2017 11:20 AM CDT Azalea Ba MD ? 01/06/2018 10:25 AM JOINT ASPIRATION Date/Time: 12/30/2017 6:10 PM Performed by: AZALEA BA Authorized by: AZALEA BA A time out verifies correct patient, procedure, equipment, accounting support specialist and site/side marked as required: Indications: ??Indications: ??Pain Location: ??Body area: ??Knee ??Joint: ??Right knee ??Local anesthesia used?: No ?? Procedure details: ??Needle size: ??18 G ??Approach: ??Superior ??Aspirate: ??Serous ??Patient tolerance: ??Patient tolerated the procedure well with no immediate complications us Azalea Ba MD IN CLINIC/BEDSIDE ORDERAB LES Final Result documented in this encounter Visit Diagnoses Diagnosis Chronic pain of both knees- Primary Chronic pain of both knees Chronic pain of both knees documented in this encounter Historical Medications * This list may reflect changes made after this encounter. topiramate (TOPAMAX) 25 mg tabletIndications :Migraine Prevention Take 100 mg by mouth 2 (two) times a day 12/30/2017 07/12/2021 diazePAM (VALIUM) 5 mg tabletIndications :anxiety Take 5 mg by mouth nightly as needed at bedtime. 5 12/16/2017 04/09/2023 ketorolac (TORADOL) 10 mg tablet TAKE ONE TABLET BY MOUTH EVERY SIX HOURS NEEDED FOR UP TO FIVE DAYS 0 12/18/2017 02/07/2018 traMADol (ULTRAM) 50 mg tablet TAKE 2 TABLETS BY MOUTH EVERY 8 HOURS NEEDED 1 11/15/2017 02/19/2018 levothyroxine sodium (TIROSINT) 112 mcg capsuleIndication s:hypothyroidism Take 1 capsule (112 mcg total) by mouth every morning 12/30/2017 04/09/2023 added in this encounter Care Teams Bottle Washer Relationship Specialty Start Date End Date René Smallwood MD PCP - General Family Medicine 12/02/17 02/10/20 documented as of this encounter
--- OUTSIDE RECORDS SUMMARY | 2024-05-11 17:36 | XMS_ITS | Encounter Summary ---
Author Organization [facility] Address [address] [place] [address] Care Team Providers Care Assistant News Director Name Role Phone René Smallwood MD Primary Care Provider [phone] [phone] Reason for Referral * Diagnostic Imaging (Routine) - Closed Specialty Diagnoses / Procedures Referred By Contac t Referred To Contact Diagnoses Chronic pain of both knees Procedures XR Knee Left 3 Views David Ba MD Phone: tel: fax: [address] [address] Referral ID Status Reason Start Date Expiration Date Visits Re quested Visits Authorized [id number] Closed 12/20/2017 07/01/2019 1 1 * Diagnostic Imaging (Routine) - Closed Specialty Diagnoses / Procedures Referred By Contac t Referred To Contact Diagnoses Chronic pain of both knees Procedures XR Knee Right 3 Views David Ba MD Phone: tel: fax: [address] [address] Referral ID Status Reason Start Date Expiration Date Visits Re quested Visits Authorized [id number] Closed 12/20/2017 07/01/2019 1 1 Reason for Visit * Diagnostic Imaging (Routine) - Closed Specialty Diagnoses / Procedures Referred By Contac t Referred To Contact Diagnoses Chronic pain of both knees Procedures XR Knee Right 3 Views David Ba MD Phone: tel: fax: [facility] [address] [place] [address] Referral ID Status Reason Start Date Expiration Date Visits Re quested Visits Authorized [id number] Closed 12/20/2017 07/01/2019 1 1 Encounter Details Date Type Department Care Team (Latest Contact Info) Description 12/30/2017 11:16 AM CDT - 12/30/2017 11:59 PM CDT Hospital Encounter 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 Gender Identity Not on file Sexual [...] UP TO FIVE DAYS 0 12/18/2017 02/07/2018 levothyroxine sodium (TIROSINT) 112 mcg capsuleIndication s:hypothyroidism Take 1 capsule (112 mcg total) by mouth every morning 12/30/2017 04/09/2023 topiramate (TOPAMAX) 25 mg tabletIndications :Migraine Prevention Take 100 mg by mouth 2 (two) times a day 12/30/2017 07/12/2021 traMADol (ULTRAM) 50 mg tablet TAKE 2 TABLETS BY MOUTH EVERY 8 HOURS NEEDED 1 11/15/2017 02/19/2018 documented as of this encounter Discharge Disposition Disposition Code Departure Means Destination Discharge to home or self care documented in this encounter Plan of Treatment Not on file documented as of this encounter Procedures Procedure Name Priority Date/Time Associated Diagnosis Comments XR KNEE RIGHT 3 VIEWS Schedule Routine, Read Routine (OP Routine) 12/30/2017 11:32 AM CDT Chronic pain of both knees XR KNEE LEFT 3 VIEWS Schedule Routine, Read Routine (OP Routine) 12/30/2017 11:32 AM CDT Chronic pain of both knees documented in this encounter Results * XR Knee Left 3 Views (12/30/2017 [...] fracture. Electronically signed by: Larry Cruz M.D. David Ba MD IMG XR PROCEDURES Final R esult * XR Knee Right 3 Views (12/30/2017 [...] fracture. Electronically signed by: Larry Cruz M.D. David Ba MD IMG XR PROCEDURES Final R esult documented in this encounter Visit Diagnoses Diagnosis Chronic pain of both knees documented in this encounter Care Teams Assistant News Director Relationship Specialty Start Date End Date René Smallwood MD PCP - General Family Medicine 12/02/17 02/10/20 documented as of this encounter
--- OUTSIDE RECORDS SUMMARY | 2024-05-11 17:36 | XMS_ITS | Encounter Summary ---
Author Organization [facility] Healthcare Address [address] [place] [address] Care Team Providers Care Wall Man Name Role Phone René Smallwood MD Primary Care Provider [phone] Encounter Details Date Type Department Care Team (Late st Contact Info) Description 02/18/2018 10:51 AM CDT Anesthesia Event [facility] Operating Room [address] [place] [address] David Taylor MD 1 [facility] [id number] [place] [address] Barbara Ortiz NP [address] [address] Anesthesia Record Procedure Summary Procedure Name Responsible Anesthesiologist Anesthesia Start Time Anesthesia Stop Time REVISION ARTHROPLASTY TOTAL KNEE-DEPUY (Right: Knee) David Taylor MD 02/18/18 1051 02/18/18 1335 Events Date Time Event Comment 02/18/2018 1023 Face Time 1023 Time out - Regional 1027 Spinal Placed 1051 An Start 1053 In Room 1056 An Start Data 1056 Start Supplemental O2 1108 Quick Note Nasopharyngeal airway inserted atraumatically into the L nare 1112 Anesthesia Ready 1114 Incision Start 1229 Quick Note Bone cement 1322 Out of Room 1322 an stop data 1335 An Stop 1440 Face Time 1440 Time out - Regional 1449 Block Placed 1503 an josselyn now Meds Name Total bupivacaine 0.75 %-dextrose 8.25 % PF 2 mL midazolam PF 1 mg/mL 4 mg fentaNYL 100 mcg propofol 140 mg propofol 777.75 mg dexmedetomidine 20 mcg tranexamic acid (TXA) 1,000 mg in sodium chloride 0.9% 100 mL 2,000 mg ceFAZolin 2,000 mg ketorolac (TORADOL) injection 30 mg 30 m g Lactated Ringer's (LR) infusion 3,050 mL * Agents Name O2% N2O O2 * Blood No blood administrations on file. Lines, Drains, and Airways Type Details Placement Removal Peripheral IV (Ped) 02/18/18; 835; Angiocath; 20 G; Left; Hand; Alcohol; None; Tolerated well 02/18/18 0836 by Yenni Royal RN 02/19/18 1349 by Tasia Farias RN Urethral Catheter Placement Date: 02/18/18; Placement Time: 1044; Type: Non-latex, Straight-tip, Temperature probe; Balloon Size: 10 mL; Urine Returned: Yes; Removal Date: 02/18/18; Removal Time: 1999; Removal Reason: Per order 02/18/18 1045 by Rachael Villaseñor RN 02/18/181999 by Cortney Boggs, TAL RETIRED Surgical Site 02/18/18; 1254; Ri ght; Leg; 02/19/18; 1350 02/18/18 1254 by Cee Montana RN 02/19/18 1350 by Tasia Farias RN documented in this encounter Social History Tobacco Use Types Packs/Day Years Used Date Smoking Tobacco: Former Cigarettes 0.5 24 2017 Smokeless Tobacco: Never Alcohol Use Standard Drinks/Week Comments Yes 0 (1 standard drink = 0.6 oz pur e alcohol) social Comments No Sex and Gender Information Value Date Recorded Sex Assigned at Not on file Legal Sex Female 11:20 AM PROMPT CARE RN Gender Identity Not on file Sexual Orientation Not on file Occupation Industry Job Start Date Job End Date unemployed Not on file Not on file Not on file documented as of this encounter OR Notes * Anesthesia Postprocedure Evaluation - Elham Whyte MD - 02/18/2018 3:31 PM CDT Patient: Marnie L Azzarello Procedure Summary Date: 02/18/18 Room / Location: [facility] OR POD 2 ROOM 215 / [facility] OR POD 2 Anesthesia Start: 1051 Anesthesia Stop: 1335 Procedure: REVISION ARTHROPLASTY TOTAL KNEE-DEPUY (Right Knee) Diagnosis: Failure of total knee replacement, initial encounter ([facility]) (Failure of total knee replacement, initial encounter ([facility]) [T84.018A, Z96.659]) Surgeon: David Ba MD Responsible Provider: David Taylor MD Anesthesia Type: spinal, regional for postop pain per surgeon request ASA Status: 2 Anesthesia Type: spinal, regional for postop pain per surgeon request Last vitals BP 108/71 Pulse 59 Temp 36.4 ??C (97.5 ??F) Resp 14 SpO2 96% Anesthesia Post Evaluation Patient location during evaluation: PACU Patient participation: complete - patient participated Level of consciousness: fully awake Pain score: 6 Pain management: satisfactory to patient Airway patency: adequate Evidence of recall: no Anesthetic complications: no Cardiovascular status: acceptable Respiratory status: acceptable and room air Hydration status: acceptable Pt is: normothermic Nausea/Vomiting status: resolved Comments: Pt resting comfortably. Nausea improved after Zofran. Spinal level receding, moves lower extremities well. Plan to go to floor. Cosigned by Nancie Renee MD at 02/18/2018 4:41 PM CDT * Anesthesia Procedure Notes - Alex Shah MD - 02/18/2018 10:43 AM CDTAssociated Order(s): ANESTHESIA SPINAL BLOCK Spinal Block Patient location: pre-op holding Reason for block: primary anesthetic Procedure prep: Preprocedure checklist: patient identified, procedure contraindications assessed, site marked, procedure consent, IV checked, risks, benefits and alternatives discussed, monitors and equipment checked and timeout performed Patient position: sitting Monitoring: ECG, oximetry and blood pressure Supplemental O2: nasal cannula Prep solution: povidone-iodine PPE: provider hat/mask, sterile gloves and sterile drape Skin infiltrated with lidocaine 1%: yes Spinal: Approach: midline Introducer used: yes Location: L3-4 Spinal injection: CSF demonstrated Number of attempts: 1 Spinal Needle: Needle type: pencil-tip Needle gauge: 25 G Needle length: 10 cm Assessment: Sensory deficit - left: T4 Sensory deficit - right: T4 Events: patient tolerated procedure well with no complications Cosigned by David Taylor MD at 02/18/2018 2:43 PM CDT Associated attestation - David Taylor MD - 02/18/2018 2:43 PM CDT I was present and participated for the entire procedure David Taylor MD * Anesthesia Preprocedure Evaluation - David Taylor MD - 02/07/2018 12:48 PM CDT [facility] Pre[facility] Planning Preoperative Evaluation Record [facility] at [facility] ([facility]) Anesthesia Evaluation Marnie Rqoue is a 52 y.o. female Procedure(s): REVISION [...] Cardiovascular Pertinent negatives: hypertension ; CAD ; IA ; CABG ; valve replacement; atrial fibrillation; [...] findings of the anesthesia pre-evaluation assessment dated: 02/07/2018. Airway Exam: Mallampati: I Cervical ROM: FROM Cardiovascular Exam: Rate: regular Rhythm: regular Pulmonary Exam: LCTA Anesthesia Plan ASA 2 My patient is approved for the Anesthesia Controlled Medication protocol when under care of a FITTING ROOM SUPERVISOR Planned anesthesia: Spinal and regional for postop pain per surgeon request Consent and Attending signature: I and/or my designee have discussed the anesthesia plan, benefits, possible alternatives, parental presence at time of induction (if indicated), and clinically relevant risks that may include dental injury, unintentional awareness, and/or other complications. The patient and/or parent/legal guardian understand, and agree to proceed. All questions answered. documented in this encounter Miscellaneous Notes * Addendum Note - Alex Shah MD - 02/20/2018 1:36 PM CDT Addendum created 02/20/18 5836 by Alex Shah MD Anesthesia Intra Blocks edited, Sign clinical note documented in this encounter Plan of Treatment Not on file documented as of this encounter Procedures Procedure Name Priority Date/Time Associated Diagnosis Comments ANESTHESIA PERIPHERAL BLOCK Routine 02/18/2018 3:04 PM CDT WA AN PROCEDURE PLACEHOLDER Routine 02/18/2018 10:43 AM CDT documented in this encounter Results * WA AN PROCEDURE PLACEHOLDER (02/18/2018 10:43 AM CDT) Narrative David Taylor MD - 02/18/2018 10:43 AM CDT Alex Shah MD ? 02/18/2018 10:45 AM Spinal Block Patient location: pre-op holding Reason for block: primary anesthetic Procedure prep: Preprocedure checklist: patient identified, procedure contraindications assessed, site marked, procedure consent, IV checked, risks, benefits and alternatives discussed, monitors and equipment checked and timeout performed Patient position: sitting Monitoring: ECG, oximetry and blood pressure Supplemental O2: nasal cannula Prep solution: povidone-iodine PPE: provider hat/mask, sterile gloves and sterile drape Skin infiltrated with lidocaine 1%: yes Spinal: Approach: midline Introducer used: yes Location: L3-4 Spinal injection: CSF demonstrated Number of attempts: 1 Spinal Needle: Needle type: pencil-tip Needle gauge: 25 G Needle length: 10 cm Assessment: Sensory deficit - left: T4 Sensory deficit - right: T4 Events: patient tolerated procedure well with no complications Alex Shah MD ANESTHESIA ORDERABLES F inal Result documented in this encounter Visit Diagnoses Not on filedocumented in this encounter Administered Medications Inactive Administered Medications - up to 3 most recent administrations Medication Order MAR Action Action Date Dose Rate Site bupivacaine 0.75% (MARCAINE SPINAL) preservative free injection in dextrose As needed, Starting on Sat02/18/18 at 1027, Anesthesia Intra-op, Indications: Spinal AnesthesiaIndications:Spinal Anesthesia Given 02/18/2018 10:27 AM CDT 2 mL ceFAZolin (ANCEF) injection intravenous, As needed, Starting on Sat02/18/18 at 1112, Anesthesia Intra-op Given 02/18/2018 11:12 AM CDT 2,000 mg dexmedetomidine (PRECEDEX) injection As needed, Starting on Sat02/18/18 at 1102, Anesthesia Intra-op Given 02/18/2018 12:17 PM CDT 4 mcg Given 02/18/2018 11:28 AM CDT 4 mcg Given 02/18/2018 11:08 AM CDT 4 mcg fentaNYL (SUBLIMAZE) preservative free injection As needed, Starting on Sat02/18/18 at 1023, Anesthesia Intra-op Given 02/18/2018 10:23 AM CDT 100 mcg ketorolac (TORADOL) injection 30 mg 30 mg, intravenous, Once, On Sat02/18/18 at 0900, For 1 dose, Pre-Op, INTRA-OP Give at time of skin closure, Indications: Postoperative Pain ManagementIndications:Postoperative Pain Management Given 02/18/2018 12:56 PM CDT 30 mg Lactated Ringer's (LR) infusion 30 mL/hr, intravenous, Continuous, Starting on Sat02/18/18 at 1130, For 365 days New Bag 02/18/2018 12:54 PM CDT New Bag 02/18/2018 11:31 AM CDT New Bag 02/18/2018 10:35 AM CDT midazolam (VERSED) preservative free injection As needed, Starting on Sat02/18/18 at 1023, Anesthesia Intra-op Given 02/18/2018 10:42 AM CDT 2 mg Given 02/18/2018 10:23 AM CDT 2 mg propofol (DIPRIVAN) IV intravenous, Continuous PRN, Starting on Sat02/18/18 at 1102, Anesthesia Intra-op Rate/Dose Change 02/18/2018 12:53 PM CDT 80 mcg/kg/min 40.27 mL/hr Rate/Dose Change 02/18/2018 12:47 PM CDT 70 mcg/kg/min 35. 24 mL/hr Rate/Dose Change 02/18/2018 12:17 PM CDT 80 mcg/kg/min 40. 27 mL/hr propofol (DIPRIVAN) IV intravenous, As needed, Starting on Sat02/18/18 at 1102, Anesthesia Intra-op Given 02/18/2018 12:53 PM CDT 30 mg Given 02/18/2018 12:32 PM CDT 20 mg Given 02/18/2018 12:17 PM CDT 40 mg tranexamic acid (TXA) 1,000 mg in sodium chloride 0.9% 100 mL 1,000 mg, intravenous, Once, On Tu02/18/18 at 0900, For 1 dose, Pre-Op, INTRA-OP Infuse over 10 minutes prior to skin incision, Indications: Reduction of Perioperative Blood LossIndications:Reduction of Perioperative Blood Loss Bolus 02/18/2018 1:04 PM CDT 1,000 mg New Bag 02/18/2018 11:08 AM CDT 1,000 mg documented in this encounter Orders Procedures Count Last Ordered Date First Orde red Date ANESTHESIA PERIPHERAL BLOCK 1 02/18/2018 documented in this encounter Care Teams Wall Man Relationship Specialty Start Date End Date René Smallwood MD PCP - General Family Medicine 12/02/17 02/10/20 documented as of this encounter
--- OUTSIDE RECORDS SUMMARY | 2024-05-11 17:36 | XMS_ITS | Encounter Summary ---
Author Organization [facility] Healthcare Address [address] [place] [address] Care Team Providers Care Chief Sustainability Officer Name Role Phone René Smallwood MD Primary Care Provider [phone] Encounter Details Date Type Department Care Team (Latest Contact Info) Description 02/18/2018 7:26 AM CDT - 02/19/2018 2:44 PM CDT Hospital Encounter [facility] [address] [place] [address] aDvid Ba MD [address] [facility] [address] [place] [address] Failure of total knee replacement, initial encounter ([facility]) (Primary Dx) Discharge Disposition: Discharge to home or self [...] on file Legal Sex Female 11:20 AM POLYSOM TECH Gender Identity Not on file Sexual Orientation Not on file Occupation Industry Job Start Date Job End Date unemployed Not on file Not on file Not on file documented as of this encounter Last Filed Vital Signs Vital Sign Reading Time Taken Comments Blood Pressure 114/62 02/19/2018 11:41 AM CDT Pulse 92 02/19/2018 11:41 AM CDT Temperature 37.6 ??C (99.7 ??F) 02/19/2018 11:41 AM C DT Respiratory Rate 16 02/19/2018 11:41 AM CDT Oxygen Saturation 95% 02/19/2018 11:41 AM CDT Inhaled Oxygen Concentration - - Weight 83 kg (183 lb) 02/18/2018 5:51 PM CDT Height 154.9 cm (5' 1 ) 02/18/2018 5:51 PM CDT Body Mass Index 34.58 02/18/2018 5:51 PM CDT documented in this encounter Discharge Summaries * Anahy Tejeda NP - 02/19/2018 11:03 AM CDT Inpatient Discharge Summary BRIEF OVERVIEW Admitting Provider: David Ba MD Discharge Provider: David Ba MD Primary Care Physician at Discharge: René Smallwood MD [phone] Admission Date: 02/18/2018 Discharge Date: 02/19/2018 Primary [...] oil, alcohol or cream on your incision. Ambrose hutton The qzhh-tr-tila evaluation was performed on: 02/19/2018 Walker or crutches for all ambulation Ambulatory referral to Home Health Service Line: Home Health Primary disciplines requested: [facility] Physical Therapy Home Health Services: Therapy to [...] home safely Pain and impaired mobility post-op [facility] is your home care provider and will contact you within 24 hours to scheduleyour first home visit. If you do not hear from them within that timeframe, please call them at [phone] to schedule. [facility] is the provider of your active care pumps. Please call them at if you have any questions or concerns about your equipment. Discharge Medications: Marnie Roque Home Medication Instructions HANNY:[id number] Printed on:02/19/18 1103 Medication Information aspirin 325 [...] of increasing Senna S dose, please purchase xxbz-[id number] at your local pharmacy and dissolve 1 [...] * Discharge Instr - Other Orders* Zac Berry, TAL - 02/19/2018 10:[address] [facility] is your home care provider and will contact you within 24 hours to scheduleyour first home visit. If you do not hear from them within that timeframe, please call them at [phone] to schedule. [facility] is the provider of [...] Site 02/18/18 Right Leg (Active) Site Assessment CLARKE 02/19/2018 8:00 AM Veronika-wound Assessment CLARKE 02/19/2018 [...] Type #1: (SN/PT) Home Care Agency Name [facility] Home Care Agency Contact Spoken to [facility] Order Faxed to [phone] Home Equipment Information Home Equipment Provider Name [...] ADD: today Medical Necessity: medically stable. Referrals: [facility] (Julianne at agency notified of discharge today); [facility] for active care pumps; patient already has [...] to home with home health Home Health correction;Physical therapy Anticipated discharge level of care Return Home Communications Patient choice (Home Health/Hospice) list given to patient/admitting representative? Yes Fiduciary Responsibility Patient/Designated decision maker was informed of [facility] fiduciary relationship as necessary Medical Necessity: presented for total knee revision with a history of failed total knee arthroplasty Additional Information/Options Discussed: Confirmed patient's phone number, address, primary care physician, and home pharmacy. Explained role and purpose of transplant case manager. The patient does not have any home [...] Planning Preoperative Evaluation Record [facility] ([facility] [...] Cardiovascular Pertinent negatives: hypertension ; CAD ; ID ; CABG ; valve replacement; atrial fibrillation; [...] 8:31 PM CDT Pt arrived to unit 74A from OR at 1720. While completing admission assessment navigator patient admitted to having previous suicidal thoughts such as not wanting to wake up and no longer wanting tolive. She stated that this mindset was noted months ago with health issues/pain and has since subsided. [employer] promoted suicide precautions and Rachael HACKETT RN [...] CDT Attending Physician David Ba M.D. First Mold Clamper Leon Coppola M.D. 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 Procedure Performed Right total knee arthroplasty revision. Implants Utilized [employer] Revision knee system. Femur was a size [...] removed femoral and tibial components. These were Sangita implants. The femur was cementless. The tibia [...] of the procedure. Job ID/VF Job ID: [id number] documented in this encounter Plan of Treatment [...] Failure of total knee replacement, initial encounter ([facility]) documented in this encounter Results * (ABNORMAL) [...] revised on 2017. Lymphocyte pct 4.2 % [facility] Comment: Interpretive Data Percent cell count reference ranges are not reported, since discordance with absolute values may lead to misinterpretation of CBC data. Current Interpretive Data was last revised on 2017. Monocyte pct 5.1 % [facility] Comment: Interpretive Data Percent cell count reference ranges are not reported, since discordance with absolute values may lead to misinterpretation of CBC data. Current Interpretive Data was last revised on 2017. Eosinophil pct 0.1 % [facility] Comment: Interpretive Data Percent cell count reference ranges are not reported, since discordance with absolute values may lead to misinterpretation of CBC data. Current Interpretive Data was last revised on 2017. Basophil pct 0.3 % [facility] Comment: Interpretive Data Percent cell count reference ranges are not reported, since discordance with absolute values may lead to misinterpretation of CBC data. Current Interpretive Data was last revised on 2017. Blood specimen (specimen) 02/18/2018 9:38 PM CDT 02/18/2018 10:44 PM CDT Narrative [facility] - 02/18/2018 10:55 PM CDT Dinesh Saleem MD LAB BLOOD ORDERAB LES Final Result [facility] Department [place] [address] * Comprehensive metabolic panel (02/18/2018 9:38 PM CDT) Sodium 139 135 - 145 mmol/L [facility] Potassium, pl 3.9 3.3 - 4.9 mmol/L [facility] Chloride 107 97 - 110 mmol/L [facility] CO2 24 22 - 32 mmol/L [facility] Anion gap 8 2 - 15 mmol/L [facility] BUN 14 8 - 25 mg/dL [facility] Creatinine 0.64 0.60 - 1.10 mg/dL [facility] Glucose 106 70 - 199 mg/dL [facility] Comment: Interpretive Data Fasting glucose >/= [...] Calcium 8.7 8.5 - 10.3 mg/dL [facility] Bilirubin, total 0.5 0.1 - 1.2 mg/dL [facility] Protein, pl 6.6 6.5 - 8.5 g/dL [facility] Albumin 3.7 3.5 - 5.0 g/dL [facility] Alk phos 77 40 - 130 Units/L [facility] ALT 31 7 - 45 Units/L [facility] AST 24 10 - 45 Units/L [facility] Blood specimen (specimen) 02/18/2018 9:38 PM CDT 02/18/2018 10:44 PM CDT Narrative [facility] - 02/18/2018 11:08 PM CDT Dinesh Saleem MD LAB BLOOD ORDERAB LES Final Result [facility] Department [place] [address] * (ABNORMAL) CBC with auto differential (02/18/2018 9:38 PM CDT) Pathologist [facility] WBC 14.8(H) 3.8 - 9.9 K/cumm [facility] Hgb 12.2 11.9 - 15.5 g/dL [facility] Hct 36.7 35.6 - 45.5 % [facility] Plt 244 150 - 400 K/cumm [facility] MPV 12.4(H) 9.1 - 12.3 fL [facility] RBC 4.03 3.90 - 5.20 M/cumm [facility] MCV 91.1 81.3 - 96.4 fL [facility] MCH 30.3 27.1 - 33.3 pg [facility] MCHC 33.2 32.3 - 35.7 g/dL [facility] RDW CV 14.0 11.1 - 14.9 % [facility] RDW SD 46.7 35.7 - 48.1 fL [facility] NRBC abs 0.00 0.00 - 0.01 K/cumm [facility] Blood specimen (specimen) 02/18/2018 9:38 PM CDT 02/18/2018 10:44 PM CDT Narrative [facility] - 02/18/2018 10:55 PM CDT Dinesh Saleem MD LAB BLOOD ORDERAB LES Final Result [facility] Department [place] [address] * XR Knee Right 1 or 2 [...] Visit Diagnoses Diagnosis Failed total knee arthroplasty ([facility]) ([facility])- Primary Failure of total knee replacement, initial encounter ([facility]) Migraine Migraine, unspecified, without mention of intractable migraine without mention of status migrainosus Anxiety Anxiety state, unspecified documented in this encounter Admitting Diagnoses Diagnosis Failed total knee arthroplasty ([facility]) ([facility]) documented in this encounter Administered Medications Inactive Administered Medications - up to 3 most recent administrations Medication Order MAR Action Action Date Dose Rate Site acetaminophen (TYLENOL) tablet 650 mg 650 mg, oral, Once, On Sat02/18/18 at 0900, For 1 dose, Pre-Op, Indications: PainIndications:Pain Given 02/18/2018 8:39 AM CDT 650 mg aspirin enteric coated tablet 325 mg 325 mg, oral, 2 times daily, First dose on Sat02/18/18 at 2100, Do not crush, chew, cut, dissolve, open or otherwise manipulate tablet/capsule., Indications: Deep Vein Thrombosis PreventionIndications:Deep Vein Thrombosis Prevention Given 02/19/2018 8:30 AM CDT 325 mg Given 02/18/2018 8:38 PM CDT 325 mg ceFAZolin (ANCEF) 2000 mg in 20 mL sterile water (premix) 2,000 mg, intravenous, at 400 mL/hr, Administer over 3 Minutes, Every 8 hours, First dose on Sat02/18/18 at 1900, For 2 doses, Beginning 8 hours after last veronika-operative dose., Indications: Prophylaxis, SurgicalIndications:Prophylaxis, Surgical New Bag 02/19/2018 3:12 AM CDT 2,000 mg 400 mL/hr New Bag 02/18/2018 8:37 PM CDT 2,000 mg 400 mL/hr diazePAM (VALIUM) tablet 5 mg 5 mg, oral, Nightly, First dose on Sat02/18/18 at 2100, Indications: anxietyIndications:anxiety Given 02/18/2018 8:37 PM CDT 5 mg famotidine (PEPCID) tablet 20 mg 20 mg, oral, 2 times daily, First dose on Sat02/18/18 at 2100, Indications: HeartburnIndications:Heartburn Given 02/19/2018 8:30 AM CDT 20 mg Given 02/18/2018 8:38 PM CDT 20 mg fentaNYL (SUBLIMAZE) preservative free injection 50 mcg 50 mcg, intravenous, Once as needed, uncontrolled pain on PACU admission, Starting on Sat02/18/18 at 1337, For 1 dose, Phase I, Then proceed to PACU 1st line analgesic., Indications: PainIndications:Pain Given 02/18/2018 3:04 PM CDT 50 mcg HYDROmorphone (DILAUDID) injection 0.2 mg 0.2 mg, intravenous, Every 10 min PRN, 1st line for pain, Starting on Sat02/18/18 at 1337, Phase I, Notify Anesthesiologist if total PACU dose reaches 2 mg and pain score 5/10 or more., Indications: PainIndications:Pain Given 02/18/2018 3:48 PM CDT 0.2 mg Given 02/18/2018 3:38 PM CDT 0.2 mg Given 02/18/2018 3:28 PM CDT 0.2 mg ketorolac (TORADOL) injection 30 mg 30 mg, intravenous, Every 6 hours, First dose on Sat02/18/18 at 1800, For 2 doses, Indications: PainIndications:Pain Given 02/19/2018 1:47 AM CDT 30 mg Given 02/18/2018 8:38 PM CDT 30 mg Lactated Ringer's (LR) bolus 1,000 mL 1,000 mL, intravenous, Once, On Sat02/18/18 at 0900, For 1 dose, Pre-Op New Bag 02/18/2018 8:38 AM CDT 1,000 mL Lactated Ringer's (LR) infusion 30 mL/hr, intravenous, [...] 02/19/2018 8:30 AM CDT 100 mcg morphine 2 mg/mL injection - ADS Override Pull Starting on Sat02/18/18 at 1738, For 1 dose, UMBERTO MENDEZ: cabinet override Given 02/18/2018 5:41 PM CDT 2 mg morphine injection 2 mg 2 mg, intravenous, [...] Indications: nausea and vomitingIndications:nausea and vomiting ondansetron (ZOFRAN) injection 4 mg 4 mg, intravenous, Once as needed, nausea, vomiting, Starting on Sat02/18/18 at 1337, For 1 dose, Phase I, Indications: Nausea and VomitingIndications:Nausea and Vomiting Given 02/18/2018 1:39 PM CDT 4 mg ondansetron ODT (ZOFRAN-ODT) disintegrating tablet 4 mg 4 mg, oral, Every 6 hours PRN, nausea, vomiting, Starting on Sat02/18/18 at 1728, Indications: nausea and vomitingIndications:nausea and vomiting oxyCODONE (ROXICODONE) tablet 5 mg 5 mg, oral, Once as needed, 1st line for pain, Starting on Sat02/18/18 at 1337, For 1 dose, Phase I, When able to tolerate PO., Indications: PainIndications:Pain Given 02/18/2018 4:12 PM CDT 5 mg oxyCODONE-acetaminophen (PERCOCET) 5-325 mg per tablet 1 [...] Given 02/19/2018 1:43 AM CDT 2 tablets scopolamine patch 72 hour 1 patch 1 patch, transdermal, Administer over 72 Hours, Once, On Sat02/18/18 at 0900, For 1 dose, Pre-Op, Indications: Prevention of Post-Operative Nausea and VomitingIndications:Pre vention of Post-Operative Nausea and Vomiting Medication Applied 02/18/2018 8:39 AM CDT 1 patch Behind Left Ear senna-docusate (PERICOLACE) 8.6-50 mg per tablet 2 tablet 2 tablet, oral, 2 times daily, First dose on Sat02/18/18 at 2100, Hold for diarrhea., Indications: constipationIndications :constipation Given 02/19/2018 8:30 AM CDT 2 tablets Given 02/18/2018 8:38 PM CDT 2 tablets sodium chloride 0.9% flush 0.5-20 [...] 2037 (Given - Provider: Cortney Boggs RN) 829 (Given - Provider: Tasia Farias RN) ceFAZolin (ANCEF) 2000 mg in 20 mL [...] 0830 (Given - Provider: Tasia Farias RN) ketorolac (TORADOL) injection 30 mg (COMPLETED) 30 mg, intravenous, Every 6 hours, First dose on Sat02/18/18 at 1800, For 2 doses, Indications: Pain 2037 (Given - Provider: Cortney Boggs RN) 0147 (Given - Provider: Cortney Boggs RN) ketorolac (TORADOL) injection 30 mg (COMPLETED) 30 mg, intravenous, Once, On Sat02/18/18 at [...] Boggs RN) 0830 (Given - Provider: Tasia Farias, TAL) sodium chloride 0.9% flush 0.5-20 mL 0.5-20 [...] Migraine Prevention 2037 (Given - Provider: Cortney Boggs RN) 0830 (Given - Provider: Tasia Farias, TAL) [...] Floor 1516 (New Bag - Provider: Beulah Davidson RN)1751 (Rate/Dose Verify - Provider: Umberto Mendez, TAL) PRN Medication Order 02/17/2018 02/18/2018 02/19/2018 camphor-menthol [...] line for pain, Starting on Sat02/18/18 at 1337, Phase I, Notify Anesthesiologist if [...] Sat02/18/18 at 1728, Indications: nausea and vomiting ondansetron (ZOFRAN) injection 4 mg (COMPLETED) 4 mg, intravenous, Once as needed, nausea, vomiting, Starting on Sat02/18/18 at 1337, For 1 dose, Phase I, Indications: Nausea and Vomiting 1339 (Given - Provider: Beulah Davidson RN) ondansetron ODT (ZOFRAN-ODT) disintegrating tablet 4 mg(Linked Group 2) 4 mg, oral, Every 6 hours PRN, nausea, vomiting, Starting on Sat02/18/18 at 1728, Indications: nausea and vomiting oxyCODONE (ROXICODONE) tablet 5 mg (COMPLETED) 5 mg, oral, Once as needed, 1st line for pain, Starting on Sat02/18/18 at 1337, For 1 [...] Pain 2037 (Given - Provider: Cortney Boggs RN)2102 (Given - Provider: Cortney Boggs RN - [...] and after each use. , Indications: Flushing 311 (Given - Provider: Cortney Boggs, RN) No Frequency Medication Order 02/17/2018 02/18/2018 [...] Count Last Ordered Date First Ordered Date camphor-menthol (SARNA) 0.5-0.5 % lotion 1 02/18/2018 ceFAZolin (ANCEF) 2000 mg in 20 mL sterile water (premix) 1 02/18/2018 ketorolac (TORADOL) injection 30 mg 1 02/18 Lactated Ringer's (LR) infusion 1 8 naloxone (NARCAN) 0.4 mg/mL injection 0.04-0.4 mg 1 02/18/2018 ondansetron (ZOFRAN) injection 4 mg 1 02/18 ondansetron ODT (ZOFRAN-ODT) disintegrating tablet 4 mg 1 02/18/2018 polyethylene glycol (MIRALAX) packet 17 g 1 02/18/2018 sodium chloride 0.9 % irrigation 1 02/19/20 18 sodium chloride 0.9% flush 0.5-20 mL 1 01/26 tranexamic acid (TXA) 1,000 mg in sodium [...] DISCHARGE INSTRUCTIONS 1 02/19/2018 WEIGHT BEARING TOLERATED 02/19/2018 Admission Count Last Ordered Date First Orde red Date ASSIGN PATIENT STATUS 01/24/2018 documented in this encounter Care Teams Chief Sustainability Officer Relationship Specialty Start Date End Date René Smallwood MD PCP - General Family Medicine 12/02/17 02/10/20 documented as of this encounter
== END ==
PROVIDERS: PCP Nurse Practitioner Family; Visit Provider Nurse Practitioner Family
DX: S62.647A Nondisplaced fracture of proximal phalanx of left little finger, initial encounter for closed fracture (principal); X58.XXXA Exposure to other specified factors, initial encounter
CPT/HCPCS: 73130

== ENCOUNTER 2024-05-14 11:57 | Outpatient (CLI) | payer MEDICARE, SELFPAY ==
--- NOTE | ~2024-05-14 | XR_ITS ---
EXAMINATION: XR hand LT min 3V DATE: 05/14/2024 12:20 INDICATION: Fracture of fifth proximal phalanx. TECHNIQUE: 3 views of left hand were obtained. COMPARISON: Left hand radiographs 05/08/2024 FINDINGS: There is a transverse fracture of diaphysis of fifth proximal phalanx. The distal fracture fragment demonstrates 15 degrees dorsal ulnar angulation. 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 Splint material is noted. IMPRESSION: 1. Transverse fracture of diaphysis of fifth proximal phalanx. Reviewed, dictated and finalized at location A. 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
== END 2024-05-14 11:58 | disposition home or self-care (01) ==
PROVIDERS: PCP Nurse Practitioner Family; Visit Provider Physician Assistant Surgical
DX: S62.617A Displaced fracture of proximal phalanx of left little finger, initial encounter for closed fracture (principal); X58.XXXA Exposure to other specified factors, initial encounter
CPT/HCPCS: 73130

== ENCOUNTER 2024-10-09 06:46 | Outpatient (CLI) | payer MEDICARE, SELFPAY ==
--- NOTE | ~2024-10-09 | MM_ITS ---
EXAMINATION: MM screening [facility] BI w allie HISTORY: Screening TECHNIQUE: Craniocaudal and mediolateral oblique 3-D tomosynthesis images were obtained and synthetic 2-D images were generated. CAD analysis was submitted and interpreted. COMPARISON: Comparison to multiple prior studies sequentially, with oldest reviewed study dated 06/21. BREAST PARENCHYMAL COMPOSITION: Not Dense: The breasts are almost entirely fatty. FINDINGS: There is no evidence of suspicious mass, calcification, or architectural distortion to sugg est malignancy in either breast. There has been no suspicious interval change. IMPRESSION: 1. No mammographic evidence of malignancy. 2. Recommend routine screening mammography in one year. BI-RADS Category 1: Negative Reviewed, dictated and finalized at location B.
--- NOTE | ~2024-10-09 | DEXA_ITS ---
Bone Density Report Name: BRIONNA MORALES Age: 59 Sex: Female Ethnicity: White Date of : 1965 Indication: postmenopausal osteoporosis; monitoring treatment; Referring Provider: APRYL DAVIS Study: Bone densitometry was performed. Exam Date: October 09, 2024 Accession number: [id number] Bone Density: Region BMD T-score Z-score Classification AP Spine(L1-L4) 0.806 -2.2 -0.8 Osteopenia Femoral Neck (Left) 0.582 -2.4 -1.1 Osteopenia Total Hip (Left) 0.714 -1.9 -0.9 Osteopenia Femoral Neck (Right) 0.590 -2.3 -1.0 Osteopenia Total Hip (Right) 0.650 -2.4 -1.4 Osteopenia Total Hip Mean 0.682 -2.2 -1.2 Osteopenia World Health Organization criteria for BMD impression classify patients as: Normal (T-score at or above -1.0), Osteopenia (T-score between -1.0 and -2.5), or Osteoporosis (T-score at or below -2.5). 10-year Fracture Risk: FRAX not reported because: Treated for osteoporosis Previous Exams: -- Region Exam Age BMD T-score BMD Change BMD Change Date g/cm2 vs Baseline vs Previous -- AP Spine (L1-L4) 10/09/2024 59 0.806 -2.2 6.8%# 6.8%# 06/21/2022 56 0.754 -2.7 Total Hip(Left) 10/09/2024 59 0.714 -1.9 3.3%# 3.3%# 06/21/2022 56 0.691 -2.1 Total Hip(Right) 10/09/2024 59 0.650 -2.4 5.5%# 5.5%# 06/21/2022 56 0.617 -2.7 -- *Denotes significance at 95% confidence level, LSC for AP Spine = 0.022 g/cm2, LSC for Total Hip = 0.027 g/cm2 # Denotes dissimilar scan types or analysis methods Impression: The patient has low bone mass, based on the Right Total Hip T-score. Unable to evaluate interval change due to the use of different scan modes. Discussion: PATIENT UNDER TREATMENT WITH NO SIGNIFICANT BMD LOSS SINCE LAST EXAM. In an untreated patient, BMD typically declines with age. A lack of decline or gain is usually a sign that treatment is efficacious and fracture risk is reduced. It is important to ask patients whether they are taking their medications and to encourage continued and appropriate compliance with their osteoporosis therapies to reduce fracture risk. It is also important to review their risk factors and encourage appropriate calcium and vitamin D intakes, exercise, fall prevention and other lifestyle measures. Follow-Up: Consider a repeat BMD and Vertebral Fracture Assessment (VFA) exam in 2 years or sooner if medically necessary, to reassess this patient's status. Reported by: DELIO on 10/14/2024 12:21:00 PM. Reviewed, dictated and finalized at location A.
== END 2024-10-09 06:47 | disposition home or self-care (01) ==
LOC: MICIMG 10-12 06:49
PROVIDERS: PCP Nurse Practitioner; Visit Provider Nurse Practitioner Family
DX: Z12.31 Encounter for screening mammogram for malignant neoplasm of breast (principal); M85.89 Other specified disorders of bone density and structure, multiple sites
CPT/HCPCS: 77063; 77067; 77080